=== PATIENT | male | born 1950 | race Caucasian/White ===

== ENCOUNTER 2017-07-15 10:49 | Emergency (ER) | payer MEDICARE, SELFPAY ==
[2017-07-15 10:50] VITALS: BP 124/70; PULSE 101; RESP 20; TEMP 37.2; O2SAT 94; BMI 25.0
--- NOTE | 2017-07-15 11:22 | EKG12_ITS ---
Test Reason : COUGH Blood Pressure : / mmHG Vent. Rate : 084 BPM Atrial Rate : 084 BPM P-R Int : 104 ms QRS Dur : 090 ms QT Int : 382 ms P-R-T Axes : 083 -37 -44 degrees QTc Int : 451 ms Sinus rhythm with short FL Left axis deviation Septal infarct , age undetermined Abnormal ECG Confirmed by ROB VENEGAS, KHANG ([id number]), desk editor ASIF PITT ([id number]) on 07/17/2017 3:03:34 PM Referred By: MENDEZ Confirmed By:KHANG RIVAS MD
[2017-07-15 11:33] VITALS: PULSE 92; RESP 18
[2017-07-15] MEDS: Ipratropium/Albuterol Sulfate 3 ML AMPUL.NEB INHALATION (11:33)
[2017-07-15 11:43] LABS: Absolute Lymphocyte Count 1.43 X10^3/ul (0.83-4.51); Absolute Neutrophil Count 4.7 X10^3/uL (2.0-7.7); Basophil# 0.04 X10^3/uL; Basophil% 0.5 % (0-1); Eosinophil# 0.38 X10^3/uL; Eosinophils% 5.2 % (0-5); Hematocrit 43.1 % (40-54); Hemoglobin 14.1 g/dl (13.0-16.5); Lymphocyte # 1.43 X10^3/ul (4.0); Lymphocyte % 19.6 % (19-41); Mean Corp Hgb Conc 32.7 g/gl (32-36); Mean Corpuscular Hgb 30.1 pg (27.0-32.0); Mean Corpuscular Volume 92.1 fL (80-94); Mean Platelet Vol. 10.1 fl (6.2-12.0); Monocyte# 0.73 X10^3/uL; Neutrophil # 4.69 X10^3/uL (2.7-7.7); Neutrophil % 64.6 % (47-70); Platelet Count 236 K/mm3 (150-450); RBC Distribution Width SD 46.8 fl (35.1-43.9); Red Blood Count 4.68 M/mm3 (4.6-6.2); White Blood Count 7.3 K/mm3 (4.4-11.0)
[2017-07-15 11:44] LABS: POSITIVE COUNT NO; POSITIVE DIFFERENTIAL NO; POSITIVE MORPHOLOGY NO
--- NOTE | 2017-07-15 11:53 | RAD_ITS ---
STUDY: X-RAY CHEST REASON FOR EXAM: Male, 66 years old. Shortness of breath and dyspnea. TECHNIQUE: Single AP portable view of the chest. COMPARISON: June 16, 2016. FINDINGS: Cardiac monitoring leads are present. Patient has had a sternotomy. The lungs are hyperexpanded. There is eventration of the hemidiaphragms. There is mild prominence of bronchovascular markings. There is no demonstrated pleural abnormality. Normal size heart. There are calcified mediastinal lymph nodes. There is prominence of the pulmonary hilar arteries without peripheral pulmonary vascular congestion. There is atherosclerotic calcification of the aortic arch with tortuosity. There is demineralization of the osseous structures. There are degenerative changes of the right acromioclavicular joint. There is no demonstrated abnormality of the visualized soft tissue structures of the upper abdomen. RAD/Chest 1 View (Portable) IMPRESSION: No radiographic evidence of acute cardiopulmonary disease. Electronically Signed: Jyothi Sebastian MD at 12:21 EST , Service support ,
[2017-07-15 12:01] LABS: Anion Gap 8 (5-15); BUN 15 mg/dL (7-18); BUN/Creat Ratio 13.9 RATIO (10-20); Calcium,Total 8.8 mg/dL (8.5-10.1); Chloride 105 mmol/L (98-107); Creatinine, Serum 1.08 mg/dL (0.70-1.30); EST Glomerular Filtration Rate 72 mL/min (>60); Est Glom Filt Rate - Afr Amer 87 mL/min (>60); Estimated Creatinine Clearance 50.56 ml/min; Glucose 87 mg/dL (74-106); Potassium 4.6 mmol/L (3.5-5.1); Sodium Level 139 mmol/L (136-145)
--- NOTE | 2017-07-15 12:03 | ED.DCSUM_ITS ---
- ER Visit Summary Date of Service: 07/15/17 Chief Complaint: [] Cough for 2 weeks COPD History of Present Illness: The patient is a 66 M [] COPD long-standing on home O2 2 L, CABG, he reports his been coughing for 2 weeks dry nonproductive he came in to be evaluated for that otherwise his health has been stable he has had no chest pain no fevers he is eating drinking well he is not gaining weight no leg edema no history of DVT or PE he has all of his meds including his inhalers at home he indicates when he coughs for this long he is usually treated with steroids and azithromycin he sees Dr. burks of pulmonary Physical Examination: [] No distress he is playing poker on his iPhone his nose is clear he has diffuse rhonchi that he states is normal for him his heart tones are normal the abdomen soft nontender upper lower extremity unremarkable neurologically he is awake alert he has a dry cough is nonproductive Test Results: [] Emergency Department Course and Treatment: [] Labs are obtained EKG shows a sinus rhythm nothing acute the studies are generally unremarkable see those reports indicates usually treated with steroids antibiotics we will start Kenalog 40 mg IM azithromycin Z-Isacc he will follow-up with his doctors take all his meds and return for change in symptoms he is feeling better wants to go home and he will follow-up Treatment Plan: [] Disposition: [] Home stable Impression: [] Acute exacerbation of COPD This note was generated with [employer] dictation software. It may contain incorrect words, spelling, and punctuation that were not noted in review of the chart prior to signing ED Disposition - Plan for ED Patient: Chief Complaint: Cough Referrals: Neto Ku MD [Primary Care Provider] -
--- NOTE | 2017-07-15 12:04 | DCINST.ED_ITS ---
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
--- NOTE | 2017-07-15 12:05 | DCINST.ED_ITS ---
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
[2017-07-15 12:10] LABS: BNP,B-Type NATRIURETIC PEPTIDE 39.8 pg/mL (0-100)
[2017-07-15] MEDS: Triamcinolone Acetonide 40 MG/ML Vial IM (13:04)
[2017-07-15 14:08] VITALS: BP 137/76; PULSE 85; RESP 21; O2SAT 97
== END 2017-07-15 15:02 | disposition home or self-care (01) ==
PROVIDERS: Emergency Provider Emergency Medicine; Family Provider Family Medicine; PCP Family Medicine
DX: J44.1 Chronic obstructive pulmonary disease with (acute) exacerbation (principal); Z99.81 Dependence on supplemental oxygen; Z95.1 Presence of aortocoronary bypass graft; Z79.82 Long term (current) use of aspirin; Z79.899 Other long term (current) drug therapy; R06.2 Wheezing
CPT/HCPCS: 71045; 80048; 83880; 84484; 85025; 93005; 94640; 96372; 99284; A4216

== ENCOUNTER 2017-12-16 18:10 | Observation (INO) | payer MEDICARE, SELFPAY ==
[2017-12-16] VITALS (8 sets, daily range): BP systolic 118–155; BP diastolic 56–105; PULSE 86–115; RESP 16–22; TEMP 36.5–37.2; O2SAT 86–99; BMI 27.1; BMI 26.0
--- NOTE | 2017-12-16 18:33 | RAD_ITS ---
STUDY: X-RAY CHEST REASON FOR EXAM: Male, 67 years old. Choking on food. TECHNIQUE: Single AP portable view of the chest. COMPARISON: 07/15/2017. FINDINGS: The lungs are hyperexpanded. There are coarsened interstitial markings suggestive of mild chronic fibrosis. No gross focal infiltrates. No gross effusions. Sternal cerclage wires and vascular clips are present from a prior sternotomy and coronary artery bypass graft procedure (CABG). Normal mediastinum and katelyn. Normal visualized pulmonary arteries. Normal visualized aortic arch and descending thoracic aorta. Normal visualized thoracic spine. Normal visualized ribs, clavicles, and shoulders. There is no demonstrated abnormality of the visualized soft tissue structures of the upper abdomen. RAD/Chest 1 View (Portable) IMPRESSION: There are findings consistent with COPD. There is no evidence of acute chest disease. Electronically Signed: Tod Barnhart MD at 19:31 EDT , Service support ,
--- NOTE | 2017-12-16 18:40 | ED.DCSUM_ITS ---
- ER Visit Summary Date of Service: 12/16/17 Chief Complaint: Choked on Taco History of Present Illness: The patient is a 67 M presenting after choking on a taco while eating upstairs visiting his in the hospital. He has had coughing and sensation of foreign body in throat since that time. He is able to swallow liquids. His family states that he has frequent trouble with choking when eating. He denies chest pain or shortness of breath. Physical Examination: Vitals are stable. Patient is afebrile. Alert no acute distress. Pulse ox initially 86% on room air. HEENT exam is unremarkable. Neck is supple. Lungs are mild expiratory wheezing bilaterally. Heart is regular rate and rhythm. Abdomen is soft nontender nondistended. Extremities are unremarkable. Skin is warm and dry. Remainder of exam is unremarkable. Emergency Department Course and Treatment: He was given Glucagon IM. He continues to have coughing. He is able to swallow liquids without difficulty. He states he feels a scratch in the back of his throat but otherwise is able to swallow. CBC, chemistries unremarkable. He was given Unasyn IV for aspiration. I feel he will likely need a swallow evaluation and treatment for aspiration. Discussed with the hospitalist. Discussed with Dr Mae, recommends CT chest. CT chest shows moderate to severe COPD. No definite acute abnormalities. Disposition: Admission Impression: Aspiration pneumonitis This note was generated with [employer] dictation software. It may contain incorrect words, spelling, and punctuation that were not noted in review of the chart prior to signing ED Disposition - Plan for ED Patient: Chief Complaint: Foreign Body
[2017-12-16] MEDS: Glucagon 1 MG/ML Syringe IM (18:46)
[2017-12-16 19:01] LABS: Anion Gap 9 (5-15); BUN 13 mg/dL (7-18); BUN/Creat Ratio 10.7 RATIO (10-20); Calcium,Total 9.7 mg/dL (8.5-10.1); Chloride 104 mmol/L (98-107); Creatinine, Serum 1.22 mg/dL (0.70-1.30); EST Glomerular Filtration Rate 63 mL/min (>60); Est Glom Filt Rate - Afr Amer 76 mL/min (>60); Estimated Creatinine Clearance 44.13 ml/min; Glucose 93 mg/dL (74-106); Potassium 4.5 mmol/L (3.5-5.1); Sodium Level 140 mmol/L (136-145)
[2017-12-16 19:06] LABS: Absolute Lymphocyte Count 2.88 X10^3/ul (0.83-4.51); Absolute Neutrophil Count 4.5 X10^3/uL (2.0-7.7); Basophil# 0.11 X10^3/uL; Basophil% 1.2 % (0-1); Eosinophil# 0.79 X10^3/uL; Eosinophils% 8.4 % (0-5); Hematocrit 46.3 % (40-54); Hemoglobin 15.1 g/dl (13.0-16.5); Lymphocyte # 2.88 X10^3/ul (4.0); Lymphocyte % 30.6 % (19-41); Mean Corp Hgb Conc 32.6 g/gl (32-36); Mean Corpuscular Hgb 30.6 pg (27.0-32.0); Mean Corpuscular Volume 93.9 fL (80-94); Mean Platelet Vol. 10.7 fl (6.2-12.0); Monocyte# 1.13 X10^3/uL; Neutrophil # 4.48 X10^3/uL (2.7-7.7); Neutrophil % 47.6 % (47-70); Platelet Count 287 K/mm3 (150-450); RBC Distribution Width CV 13.7 % (11.6-14.6); RBC Distribution Width SD 45.8 fl (35.1-43.9); Red Blood Count 4.93 M/mm3 (4.6-6.2); White Blood Count 9.4 K/mm3 (4.4-11.0)
[2017-12-16 19:07] LABS: POSITIVE COUNT NO; POSITIVE DIFFERENTIAL NO; POSITIVE MORPHOLOGY NO
--- NOTE | 2017-12-16 20:12 | HP.PCM_ITS ---
Problem List (1) Aspiration into airway Status: Acute (2) DDD (degenerative disc disease) Status: Chronic (3) Hx of CABG Status: Chronic (4) Benign prostatic hypertrophy Status: Chronic (5) CAD (coronary artery disease) Status: Chronic (6) COPD (chronic obstructive pulmonary disease) Status: Chronic History of Present Illness Date of Admission: 12/16/17 Chief Complaint: Choking spell on taco crust The patient is a 67 year old M with a significant history of COPD, home oxygen use at 2 L at night; paroxysmal A. fib;tobacco abuse; heart failure; skin cancer status post surgery; CAD status post double CABG who presented because of a choking spell about 3 hours prior to his admission. The patient feels like there is something scratching at the back of his throat. He has been coughing profusely. Patient visited his sister who is inpatient at our TCU. While at our hospital the patient began to choke on taco crust that he was eating. He was subsequently brought to the emergency department. At emergency department he was given a dose of Unasyn. A CT scan was done and it showed narrowing of the upper trachea; unremarkable otherwise. Also patient reports that 3 times in the last 3 weeks he has been choking on food. He also reports a chronic cough although he admits that his baseline cough has worsened with his food encounter aforementioned. Past Medical History Past Medical History (Chronic Problems): Chronic Problems Benign prostatic hypertrophy (Chronic) Hypertension (Chronic) Chronic respiratory failure (Chronic) COPD (chronic obstructive pulmonary disease) (Chronic) Paroxysmal atrial fibrillation (Chronic) DDD (degenerative disc disease) (Chronic) CAD (coronary artery disease) (Chronic) Hx of CABG (Chronic) Myoclonic jerking (Chronic) Allergies No Known Allergies Allergy (Verified 12/16/17 18:11) Home Medications: Ambulatory Orders Medication Instructions Recorded Albuterol Aerosols [Ventolin 2.5 mg INHALATION Q4H PRN PRN 07/04/16 Aerosols] Albuterol Inhaler [Ventolin Hfa 2 puff INHALATION Q6H PRN PRN 07/04/16 (SP)] Allopurinol 100 mg PO DAILY 07/04/16 Ascorbic Acid [Vitamin C] 1,000 mg PO DAILY 07/04/16 Aspirin [Aspirin, Baby] 81 mg PO DAILY@0800 07/04/16 Atorvastatin Calcium [Lipitor] 10 mg PO QHS 07/04/16 Budesonide [Pulmicort] 0.25 mg IH BID 07/04/16 Cholecalciferol (Vitamin D3) 2,000 unit PO DAILY 07/04/16 [Vitamin D3] Ciclopirox 6.6 ml TP QHS 07/04/16 Colchicine 0.6 mg PO BID 07/04/16 Hydroxychloroquine [Plaquenil] 400 mg PO DAILYCM 07/04/16 Ipratropium [Atrovent] 0.25 mg INHALATION 4X/DAY 07/04/16 Metoprolol Tartrate 25 mg PO DAILY 07/04/16 Nitroglycerin 0.4 mg SL PRN PRN 07/04/16 Omeprazole [Prilosec] 20 mg PO DAILY 07/04/16 Pregabalin [Lyrica] 150 mg PO BID 07/04/16 Spironolactone [Aldactone] 12.5 mg PO DAILY 07/04/16 Tamsulosin HCl [Flomax] 0.4 mg PO DAILY 07/04/16 traMADol [Ultram (G)] 50 mg PO Q4H PRN PRN 07/04/16 Alendronate Sodium [Fosamax] 70 mg PO QWEEK 07/15/17 Baclofen 10 mg PO BID PRN PRN 07/15/17 Nicotine [Nicotine Patch] 1 each TD DAILY 12/16/17 Surgical History: cataract, - - Bilateral carpal tunnel surgery Psychiatric History: No pertinent psych hx Smoking Status: Current every day smoker - *Family History Maternal History Items: Asthma Paternal History Items: No pertinent history Sibling History Items: No pertinent history Review of Systems Constitutional: Denies: Chills, Fever, Weight Change HEENT: Denies: Head Aches, Sinus Congestion, Sinus Drainage Cardiovascular: Denies: Chest Pain, Palpitations Respiratory: Reports: Cough Gastrointestinal: Denies: Abdominal Pain, Nausea, Vomiting Genitourinary: Denies: Dysuria Musculoskeletal: Denies: Joint Pain, Joint Tenderness Skin: Denies: Rash, Wounds Neurological: Denies: Numbness, Tingling, Focal weakness Psychiatric: Denies: Homicidal Ideations, Suicidal Ideations Hematologic/ Lymphatic: Denies: Easy Bruising, Easy Bleeding VTE Information - Inpt Only VTE Present on Admission: No VTE Mechan Device Prophylaxis: None VTE Pharm Prophylaxis ordered?: Yes Patient Problems: Active and Suspected Problems Aspiration into airway (Acute) - Physical Exam General: Alert, Oriented x3, Cooperative HEENT: Atraumatic, PERRLA, EOMI, Normocephalic Neck: Supple, No JVD, Negative Carotid Bruits Lungs: Wheezes - Mild, - - Patient was coughing at the time of my examination. Cardiovascular: Regular rate, No murmurs Abdomen: Bowel Sounds Present, Soft, Non Tender Extremities: No edema, Capillary Refill Less than 3 Seconds Skin: No rashes, No breakdown Musculoskeletal: No Tenderness to Palpation of Joints or Extremities Neurological: Cranial nerves II-XII grossly intact Psych/Mental Status: Normal Affect, Appropriate Vital Signs Temp Pulse Resp BP Pulse Ox 97.7 F L 115 H 18 154/105 H 86 12/16/17 18:11 12/16/17 18:11 12/16/17 18:11 12/16/17 18:11 12/16/17 18:11 Oxygen Flow Rate (L/min) 2 Oxygen Delivery Method Nasal Cannula Weight: 67.4 kg Body Mass Index (BMI) 27.1 Laboratory Tests Past 24 Hrs 12/16/17 12/16/17 18:10 18:10 WBC 9.4 RBC 4.93 Hgb 15.1 Hct 46.3 MCV 93.9 MCH 30.6 MCHC 32.6 RDW 13.7 RDW Differential 45.8 H Plt Count 287 MPV 10.7 Immature Gran % (Auto) 0.200 Neut % (Auto) 47.6 Lymph % (Auto) 30.6 Divide % (Auto) 12.0 H Eos % (Auto) 8.4 H Baso % (Auto) 1.2 H Absolute Neuts (auto) 4.5 Absolute Lymphs (auto) 2.88 Total Counted Not Reportable Sodium 140 Potassium 4.5 Chloride 104 Carbon Dioxide 27.0 Anion Gap 9 BUN 13 Creatinine 1.22 Estim Creat Clear Calc 44.13 Est GFR (MDRD) Af Amer 76 Est GFR (MDRD) Non-Af 63 BUN/Creatinine Ratio 10.7 Glucose 93 Calcium 9.7 Assessment/Plan All Active Problems Aspiration into airway (Acute) Sepsis (Ruled-out) The patient is a 67 year old M with a significant history of COPD, home oxygen use at 2 L at night; paroxysmal A. fib;tobacco abuse; heart failure; skin cancer status post surgery; CAD status post double CABG who presented because of an acute choking spell and a recent history of choking on food. Aspiration CT chest unremarkable. Xray Chest unremarkable Patient to be clinically monitored. The plan was that if patient continued to cough he will see pulmonary for possible bronchoscopy for removal of foreign material. However while on the inpatient burt, patient reported alleged that he (patient) might have coughed up the food into a tissue. We will hold off pulmonary consult for now. Will hold off antibiotics for aspiration pneumonia; and prednisone for pneumonitis as there are no such evidence at this time. We will hold off all p.o. medications at this time. Because patient reports history of recent choking spells will consult speech for swallow eval. Depending upon speech recommendation patient may be a candidate for modified barium swallow evaluation. The patient takes alendronate at home. This may be contributing to esophagitis ; and this may deserve further exploration. COPD Scheduled DuoNeb and as needed albuterol Albuterol prn HTN Home anti-hypertensive medications held because of dysphagia. As needed labetalol. Degenerative disc disease and generalized osteoarthritis Tramadol p.o. held Morphine as needed. Tobacco abuse Nicotine patch continued DVT prophylaxis subcutaneous heparin. This note was generated with [employer] dictation software. It may contain incorrect words, spelling, and punctuation that were not noted before signingthe note. Code Visit OBSV E&M: 48419 Initial observation care L3
--- NOTE | 2017-12-16 20:32 | CT_ITS ---
STUDY: CT CHEST WITH CONTRAST REASON FOR EXAM: Male, 67 years old. Choked on food. Cough. RADIATION DOSAGE (If Supplied By Facility): CTDIvol = ( 13.08 ) mGy, DLP = ( 579.65 ) mGycm TECHNIQUE: Transaxial imaging was performed following intravenous administration of 100 ml of Isovue 300 contrast material. Individualized dose optimization techniques were used for this CT. COMPARISON: None. FINDINGS: There are emphysematous changes of the lungs with emphysematous blebs. There is hyperexpansion of the lungs. No infiltrates. No effusions. There is no demonstrated pleural abnormality. Sternal cerclage wires and vascular clips are present from a prior sternotomy and coronary artery bypass graft procedure (CABG). There is narrowing of the upper trachea which can be seen with COPD. Normal mediastinum. Normal hilar regions. Normal enhanced pulmonary arteries. There is atherosclerotic calcification of the aortic arch with tortuosity and elongation of the aortic arch and descending thoracic aorta. No gross abnormality of the esophagus. There are multi-level degenerative changes of the thoracic spine. There is no demonstrated abnormality of the visualized upper abdomen. CT/Chest WITH Contrast IMPRESSION: Moderate to severe COPD. No definite acute abnormalities. Electronically Signed: Tod Barnhart MD at 21:08 EDT , Service support ,
--- NOTE | 2017-12-16 21:25 | ED.RN ---
called patients family in TCU per patients request and updated them that pt is being admitted to PCU for observation.
--- NOTE | 2017-12-16 21:31 | NURSING ---
called ER charge lpn at [id number] stating it was ok to receive pt
[2017-12-16] MEDS: Ipratropium/Albuterol Sulfate 3 ML AMPUL.NEB INHALATION (22:39)
[2017-12-16] MEDS: Budesonide Respules 0.5 MG/2 ML AMPUL.NEB. 0.25 MG INHALATION (22:40)
[2017-12-16] MEDS: Heparin Injection (Vial) 5,000 UNIT/ML VIAL 5000 UNIT SC (23:09)
[2017-12-17] VITALS (8 sets, daily range): BP systolic 101–109; BP diastolic 42–49; PULSE 87–99; RESP 14–16; TEMP 36.7–36.9; O2SAT 95–97
[2017-12-17 05:44] LABS: Anion Gap 15 (5-15); BUN 18 mg/dL (7-18); BUN/Creat Ratio 18.3 RATIO (10-20); Calcium,Total 9.1 mg/dL (8.5-10.1); Chloride 104 mmol/L (98-107); Creatinine, Serum 0.99 mg/dL (0.70-1.30); EST Glomerular Filtration Rate 80 mL/min (>60); Est Glom Filt Rate - Afr Amer 97 mL/min (>60); Estimated Creatinine Clearance 54.39 ml/min; Glucose 47 mg/dL (74-106); Potassium 4.6 mmol/L (3.5-5.1); Sodium Level 142 mmol/L (136-145)
[2017-12-17] MEDS: Heparin Injection (Vial) 5,000 UNIT/ML VIAL 5000 UNIT SC (06:57)
[2017-12-17] MEDS: Ipratropium/Albuterol Sulfate 3 ML AMPUL.NEB INHALATION ×2 (07:15→11:02)
[2017-12-17] MEDS: Budesonide Respules 0.5 MG/2 ML AMPUL.NEB. 0.25 MG INHALATION (07:15)
--- NOTE | 2017-12-17 10:41 | DCINST_ITS ---
- Discharge Diagnoses Current Active Problems: Current Active and Chronic Problems Aspiration into airway (Acute) You will use the following diet at home:: Other - Dietitian recommends: mechanical soft textures, thin liquids, and in order to help prevent further choking: small bites, small sips, making sure to be at a 90? elevation whenever eating, and to alternate bites of solids and sips of liquids Your food should be the consistency of: Mechanical soft (ground) Your liquids should be the consistency of: Regular/Thin Discharge Activity: Return to Normal Activity Allergies/Adverse Reactions: Allergies No Known Allergies Allergy (Verified 12/16/17 18:11) Medications to take at Discharge Albuterol Aerosols [Ventolin Aerosols] 2.5 mg INHALATION Q4H PRN PRN 07/04/16 Albuterol Inhaler [Ventolin Hfa] 2 puff INHALATION Q6H PRN PRN 07/04/16 Allopurinol 100 mg PO DAILY 07/04/16 Ascorbic Acid [Vitamin C] 1,000 mg PO DAILY 07/04/16 Aspirin [Aspirin, Baby] 81 mg PO DAILY@0800 07/04/16 Atorvastatin Calcium [Lipitor] 10 mg PO QHS 07/04/16 Budesonide [Pulmicort] 0.25 mg IH BID 07/04/16 Cholecalciferol (Vitamin D3) [Vitamin D3] 2,000 unit PO DAILY 07/04/16 Ciclopirox 6.6 ml TP QHS 07/04/16 Colchicine 0.6 mg PO BID 07/04/16 Hydroxychloroquine [Plaquenil] 400 mg PO DAILYCM 07/04/16 Ipratropium [Atrovent Aerosols] 0.25 mg INHALATION 4X/DAY 07/04/16 Metoprolol Tartrate 25 mg PO DAILY 07/04/16 Nitroglycerin 0.4 mg SL PRN PRN 07/04/16 Omeprazole [Prilosec] 20 mg PO DAILY 07/04/16 Pregabalin [Lyrica] 150 mg PO BID 07/04/16 Spironolactone [Aldactone] 12.5 mg PO DAILY 07/04/16 Tamsulosin HCl [Flomax] 0.4 mg PO DAILY 07/04/16 traMADol [Ultram] 50 mg PO Q4H PRN PRN 07/04/16 Alendronate Sodium [Fosamax] 70 mg PO QWEEK 07/15/17 Baclofen 10 mg PO BID PRN PRN 07/15/17 Nicotine [Nicotine Patch] 1 each TD DAILY 12/16/17 Primary Care Physician: Neto Ku MD [Primary Care Provider] - Please follow up with your Primary Care Physician in: 1-2 weeks Test Results: Test results from this visit will be discussed in further detail at your follow- up appointment, if applicable. Proposed Discharge Date: 12/17/17
--- NOTE | 2017-12-17 14:04 | PCM.DC.SUM ---
<Jose Raul Grace - Last Filed: 12/17/17 14:10> Discharge Date and Diagnosis Date of Admission: 12/16/17 Date of Discharge: 12/17/17 - Primary Discharge Diagnosis Aspiration of food, dysphagia COPD without acute exacerbation Hx CABG PAfib BPH DDD - Secondary Discharge Diagnosis Chronic Problems Benign prostatic hypertrophy (Chronic) Hypertension (Chronic) Chronic respiratory failure (Chronic) COPD (chronic obstructive pulmonary disease) (Chronic) Paroxysmal atrial fibrillation (Chronic) DDD (degenerative disc disease) (Chronic) CAD (coronary artery disease) (Chronic) Hx of CABG (Chronic) Myoclonic jerking (Chronic) Hospital Course and Treatment Imaging Results: RAD/Chest 1 View (Portable) IMPRESSION: There are findings consistent with COPD. There is no evidence of acute chest disease. CT/Chest WITH Contrast IMPRESSION: Moderate to severe COPD. No definite acute abnormalities. Operations: None Procedures: None Summary of Care Provided: The patient is a 67 year old M with a hx of COPD on 2 lpm o2 qhs, CAD prior CABG, PAFib, DDD who presented to the ER with severe cough. This began about 3 hours prior to presentation after he choked on a taco shell. In the ER he had a negative CXR and CT scan. He was given a dose of unasyn. He also reported this happening 3 times in the last 3 weeks. He did not require increased O2 supplementation. He was admitted for monitoring on the PCU and given aerosols. He was somewhat wheezy. He was able to cough out the piece of taco shell. The following morning he had no complaints and desired to go home. He met with the speech therapist who recommended a soft mechanical diet, thin liquids, and to eat slowly while sitting up at 90 degrees with alterniting bites and sips. He was given these instrucions for DC. I also advised him to use his albuterol inhaler scheduled [id number] for the first day home. He was discharged home in stable condition and advised to follow up with his PCP in 1-2 weeks. This patient was seen by Jose Raul Grace PA-C under the supervision of Dr. Tripp. [] Discharge Diet: Low fat/ Low Cholesterol, 2000 mg Sodium Diet, - - Mechanical soft textures, thin liquids, small bites small sips, slow rate, alternate bites of solids and sips of liquids, head of bed at 90?. Discharge Activity: Return to Normal Activity Home Medications: Medications to take at Discharge Albuterol Aerosols [Ventolin Aerosols] 2.5 mg INHALATION Q4H PRN PRN 07/04/16 Albuterol Inhaler [Ventolin Hfa] 2 puff INHALATION Q6H PRN PRN 07/04/16 Allopurinol 100 mg PO DAILY 07/04/16 Ascorbic Acid [Vitamin C] 1,000 mg PO DAILY 07/04/16 Aspirin [Aspirin, Baby] 81 mg PO DAILY@0800 07/04/16 Atorvastatin Calcium [Lipitor] 10 mg PO QHS 07/04/16 Budesonide [Pulmicort] 0.25 mg IH BID 07/04/16 Cholecalciferol (Vitamin D3) [Vitamin D3] 2,000 unit PO DAILY 07/04/16 Ciclopirox 6.6 ml TP QHS 07/04/16 Colchicine 0.6 mg PO BID 07/04/16 Hydroxychloroquine [Plaquenil] 400 mg PO DAILYCM 07/04/16 Ipratropium [Atrovent Aerosols] 0.25 mg INHALATION 4X/DAY 07/04/16 Metoprolol Tartrate 25 mg PO DAILY 07/04/16 Nitroglycerin 0.4 mg SL PRN PRN 07/04/16 Omeprazole [Prilosec] 20 mg PO DAILY 07/04/16 Pregabalin [Lyrica] 150 mg PO BID 07/04/16 Spironolactone [Aldactone] 12.5 mg PO DAILY 07/04/16 Tamsulosin HCl [Flomax] 0.4 mg PO DAILY 07/04/16 traMADol [Ultram] 50 mg PO Q4H PRN PRN 07/04/16 Alendronate Sodium [Fosamax] 70 mg PO QWEEK 07/15/17 Baclofen 10 mg PO BID PRN PRN 07/15/17 Nicotine [Nicotine Patch] 1 each TD DAILY 12/16/17 Primary Care Physician: Neto Ku MD [Primary Care Provider] - Please follow up with your Primary Care Physician in: 1-2 weeks Disposition: Home Minutes spent on discharge:: 35 Patient Condition:: Stable Medical Necessity - Tobacco Use Smoking Status: Current every day smoker Meaningful Use Info Meaningful Use Diagnoses (Choose all that apply): None applicable <Marjorie Tripp E - Last Filed: 12/17/17 15:06> Discharge Date and Diagnosis - Secondary Discharge Diagnosis Chronic Problems Benign prostatic hypertrophy (Chronic) Hypertension (Chronic) Chronic respiratory failure (Chronic) COPD (chronic obstructive pulmonary disease) (Chronic) Paroxysmal atrial fibrillation (Chronic) DDD (degenerative disc disease) (Chronic) CAD (coronary artery disease) (Chronic) Hx of CABG (Chronic) Myoclonic jerking (Chronic) Hospital Course and Treatment Summary of Care Provided: Hospitalist note: Discharge summary above reviewed and I agree with above discharge and treatment plan. Patient was admitted because of persistent cough after he choked on taco shell. He was admitted with concern of aspiration and dysphagia. Extensive workup was done including chest x-ray and CT scan chest that was unremarkable without evidence of aspiration pneumonia or foreign body aspiration. His routine blood work was unremarkable. Patient was seen and evaluated by speech therapy and recommended soft mechanical diet, thin liquids and to eat slowly while sitting up. Instructions were relayed to the patient. Patient discharged home in a stable medical condition, discharged on his chronic home medication without any changes, started on albuterol as needed, recommended follow-up with PCP in 1-2 weeks. - Physical Exam General: Alert, Oriented x3, Cooperative, No apparent distress. HEENT: Atraumatic, PERRLA, EOMI. Neck: Supple, No JVD, Negative Carotid Bruits, Trachea Midline, Thyroid Normal. Lungs: Diminished breath sounds bilateral, no rhonchi, No wheeze, No rales. Cardiovascular: Regular rate, Regular Rhythm, Normal S1, Normal S2, PMI Normal. Abdomen: Bowel Sounds Present, Soft, Non Tender, Non-Distended, No Hepato-splenomegaly. Extremities: No clubbing, No cyanosis, No edema Skin: No rashes, No breakdown Neurological: Neuro grossly intact Vital Signs are stable. This note was generated with [employer] dictation software. It may contain incorrect words, spelling, and punctuation that were not noted in checking the note before signing. Minutes spent on discharge:: 25 Patient Condition:: Stable Meaningful Use Info Meaningful Use Diagnoses (Choose all that apply): None applicable Code Visit OBSV E&M: 23632 Observation care discharge
--- NOTE | 2017-12-17 14:09 | DS.PCM_ITS ---
<Jose Raul Grace - Last Filed: 12/17/17 14:10> Discharge Date and Diagnosis Date of Admission: 12/16/17 Date of Discharge: 12/17/17 - Primary Discharge Diagnosis Aspiration of food, dysphagia COPD without acute exacerbation Hx CABG PAfib BPH DDD - Secondary Discharge Diagnosis Chronic Problems Benign prostatic hypertrophy (Chronic) Hypertension (Chronic) Chronic respiratory failure (Chronic) COPD (chronic obstructive pulmonary disease) (Chronic) Paroxysmal atrial fibrillation (Chronic) DDD (degenerative disc disease) (Chronic) CAD (coronary artery disease) (Chronic) Hx of CABG (Chronic) Myoclonic jerking (Chronic) Hospital Course and Treatment Imaging Results: RAD/Chest 1 View (Portable) IMPRESSION: There are findings consistent with COPD. There is no evidence of acute chest disease. CT/Chest WITH Contrast IMPRESSION: Moderate to severe COPD. No definite acute abnormalities. Operations: None Procedures: None Summary of Care Provided: The patient is a 67 year old M with a hx of COPD on 2 lpm o2 qhs, CAD prior CABG , PAFib, DDD who presented to the ER with severe cough. This began about 3 hours prior to presentation after he choked on a taco shell. In the ER he had a negative CXR and CT scan. He was given a dose of unasyn. He also reported this happening 3 times in the last 3 weeks. He did not require increased O2 supplementation. He was admitted for monitoring on the PCU and given aerosols. He was somewhat wheezy. He was able to cough out the piece of taco shell. The following morning he had no complaints and desired to go home. He met with the speech therapist who recommended a soft mechanical diet, thin liquids, and to eat slowly while sitting up at 90 degrees with alterniting bites and sips. He was given these instrucions for DC. I also advised him to use his albuterol inhaler scheduled [id number] for the first day home. He was discharged home in stable condition and advised to follow up with his PCP in 1-2 weeks. This patient was seen by Jose Raul Grace PA-C under the supervision of Dr. Tripp. [] Discharge Diet: Low fat/ Low Cholesterol, 2000 mg Sodium Diet, - - Mechanical soft textures, thin liquids, small bites small sips, slow rate, alternate bites of solids and sips of liquids, head of bed at 90?. Discharge Activity: Return to Normal Activity Home Medications: Medications to take at Discharge Albuterol Aerosols [Ventolin Aerosols] 2.5 mg INHALATION Q4H PRN PRN 07/04/16 Albuterol Inhaler [Ventolin Hfa] 2 puff INHALATION Q6H PRN PRN 07/04/16 Allopurinol 100 mg PO DAILY 07/04/16 Ascorbic Acid [Vitamin C] 1,000 mg PO DAILY 07/04/16 Aspirin [Aspirin, Baby] 81 mg PO DAILY@0800 07/04/16 Atorvastatin Calcium [Lipitor] 10 mg PO QHS 07/04/16 Budesonide [Pulmicort] 0.25 mg IH BID 07/04/16 Cholecalciferol (Vitamin D3) [Vitamin D3] 2,000 unit PO DAILY 07/04/16 Ciclopirox 6.6 ml TP QHS 07/04/16 Colchicine 0.6 mg PO BID 07/04/16 Hydroxychloroquine [Plaquenil] 400 mg PO DAILYCM 07/04/16 Ipratropium [Atrovent Aerosols] 0.25 mg INHALATION 4X/DAY 07/04/16 Metoprolol Tartrate 25 mg PO DAILY 07/04/16 Nitroglycerin 0.4 mg SL PRN PRN 07/04/16 Omeprazole [Prilosec] 20 mg PO DAILY 07/04/16 Pregabalin [Lyrica] 150 mg PO BID 07/04/16 Spironolactone [Aldactone] 12.5 mg PO DAILY 07/04/16 Tamsulosin HCl [Flomax] 0.4 mg PO DAILY 07/04/16 traMADol [Ultram] 50 mg PO Q4H PRN PRN 07/04/16 Alendronate Sodium [Fosamax] 70 mg PO QWEEK 07/15/17 Baclofen 10 mg PO BID PRN PRN 07/15/17 Nicotine [Nicotine Patch] 1 each TD DAILY 12/16/17 Primary Care Physician: Neto Ku MD [Primary Care Provider] - Please follow up with your Primary Care Physician in: 1-2 weeks Disposition: Home Minutes spent on discharge:: 35 Patient Condition:: Stable Medical Necessity - Tobacco Use Smoking Status: Current every day smoker Meaningful Use Info Meaningful Use Diagnoses (Choose all that apply): None applicable <Marjorie Tripp E - Last Filed: 12/17/17 15:06> Discharge Date and Diagnosis - Secondary Discharge Diagnosis Chronic Problems Benign prostatic hypertrophy (Chronic) Hypertension (Chronic) Chronic respiratory failure (Chronic) COPD (chronic obstructive pulmonary disease) (Chronic) Paroxysmal atrial fibrillation (Chronic) DDD (degenerative disc disease) (Chronic) CAD (coronary artery disease) (Chronic) Hx of CABG (Chronic) Myoclonic jerking (Chronic) Hospital Course and Treatment Summary of Care Provided: Hospitalist note: Discharge summary above reviewed and I agree with above discharge and treatment plan. Patient was admitted because of persistent cough after he choked on taco shell. He was admitted with concern of aspiration and dysphagia. Extensive workup was done including chest x-ray and CT scan chest that was unremarkable without evidence of aspiration pneumonia or foreign body aspiration. His routine blood work was unremarkable. Patient was seen and evaluated by speech therapy and recommended soft mechanical diet, thin liquids and to eat slowly while sitting up. Instructions were relayed to the patient. Patient discharged home in a stable medical condition, discharged on his chronic home medication without any changes, started on albuterol as needed, recommended follow-up with PCP in 1-2 weeks. - Physical Exam General: Alert, Oriented x3, Cooperative, No apparent distress. HEENT: Atraumatic, PERRLA, EOMI. Neck: Supple, No JVD, Negative Carotid Bruits, Trachea Midline, Thyroid Normal. Lungs: Diminished breath sounds bilateral, no rhonchi, No wheeze, No rales. Cardiovascular: Regular rate, Regular Rhythm, Normal S1, Normal S2, PMI Normal. Abdomen: Bowel Sounds Present, Soft, Non Tender, Non-Distended, No Hepato- splenomegaly. Extremities: No clubbing, No cyanosis, No edema Skin: No rashes, No breakdown Neurological: Neuro grossly intact Vital Signs are stable. This note was generated with [employer] dictation software. It may contain incorrect words, spelling, and punctuation that were not noted in checking the note before signing. Minutes spent on discharge:: 25 Patient Condition:: Stable Meaningful Use Info Meaningful Use Diagnoses (Choose all that apply): None applicable Code Visit OBSV E&M: 03070 Observation care discharge
== END 2017-12-17 12:00 | disposition home or self-care (01) ==
LOC: ED 19:35 → PCU 21:22
PROVIDERS: Admitting Provider Hospitalist; Emergency Provider Emergency Medicine; Family Provider Family Medicine; PCP Family Medicine; Visit Provider Hospitalist
DX: T17.928A Food in respiratory tract, part unspecified causing other injury, initial encounter (principal); X58.XXXA Exposure to other specified factors, initial encounter; Y93.89 Activity, other specified; Y92.239 Unspecified place in hospital as the place of occurrence of the external cause; Y99.8 Other external cause status; J44.9 Chronic obstructive pulmonary disease, unspecified; Z95.1 Presence of aortocoronary bypass graft; N40.0 Benign prostatic hyperplasia without lower urinary tract symptoms; R13.10 Dysphagia, unspecified; I25.10 Atherosclerotic heart disease of native coronary artery without angina pectoris; I48.0 Paroxysmal atrial fibrillation; I10 Essential (primary) hypertension; J96.10 Chronic respiratory failure, unspecified whether with hypoxia or hypercapnia; G25.3 Myoclonus; M15.9 Polyosteoarthritis, unspecified; F17.210 Nicotine dependence, cigarettes, uncomplicated
CPT/HCPCS: 36415; 71045; 71260; 80048; 85025; 94640; 94667; 94668; 96372; 96374; 99218; 99251; 99282; 99406; Q9967; A4216; G0378; G0463; J0295; J1610

== ENCOUNTER 2018-01-15 11:40 | Day surgery (SDC) | payer MEDICARE, SELFPAY ==
--- NOTE | 2018-01-15 | IMM_PTH ---
PATIENT: KAMILLA DICKSON LOC: EN U#:[id number] AGE/SX: 67/M ROOM: RE01/15/[address]: Dr. Fly Bowie MD : 1950 BED: DIS: 01/15/2018 SPEC #: [id number] RECD: 01/16/18 14:26 STATUS: DESTINEY REQ #: [id number] JOHN: 01/15/18 00:[address]: Fly Bowie DEPT: IMMUNOHISTOCHEMISTRY RECD BY: Le Mayer ENTERED: 01/16/18 14:28 SP TYPE: IMMUNO OTHR DR: Dr. Neto Ku MD Tissues: A - Stomach, NOS Procedures: H Pylori (initial) PHYSICIAN & INSTITUTION [place] [id number] SPECIMEN INFORMATION: Tissue Source: A ? Antral biopsy Clinical Info: Dysphagia Specimen Number: [id number] CPT code: 84098 METHODOLOGY: Deparaffinized sections of prefer/formalin-fixed tissue or PAP/DQ stained slides are incubated with monoclonal/polyclonal antibodies/oligonucleotide probes. Localization is made via biotin free immunoperoxidase method. Appropriate controls are performed and reacted as expected. Results on target cell population are indicated in the following table: RESULTS: ANTIBODY / CLONE RESULT Block A H Pylori (polyclonal) negative These tests were developed and their performance characteristics determined by [facility]. They may not have been cleared or approved by the U.S. Food and Drug Administration. The FDA has determined that such clearance or approval is not necessary. INTERPRETATION: A. Antral biopsy: Negative for Helicobacter pylori organisms. SJ:alka 01/17/18
[2018-01-15 12:02] VITALS: BP 115/71; PULSE 82; RESP 18; TEMP 36.2; O2SAT 91; BMI 25.4
--- NOTE | 2018-01-15 13:00 | EGD_PTH ---
PATIENT: KAMILLA DICKSON LOC: EN U#:[id number] AGE/SX: 67/M ROOM: RE01/15/[address]: Dr. Fly Bowie MD : 1950 BED: DIS: 01/15/2018 SPEC #: [id number] RECD: 01/15/18 14:34 STATUS: DESTINEY ZIA #: [id number] JOHN: 01/15/18 13:[address]: Fly Bowie DEPT: SURGICAL PATHOLOGY RECD BY: Carol Avendano ENTERED: 01/15/18 14:49 SP TYPE: EGD BIOPSY DIMITRI DR: Dr. Neto Ku MD Tissues: A - Gastric mucous membrane B - Esophageal mucous membrane C - Esophageal mucous membrane Procedures: Special Stain Group II Surgery Specimen Level IV Alcian Blue/PAS (control) HEADER OPERATION: EGD ([facility] [place]) PRE-OP DIAGNOSIS: Dysphagia TISSUE SUBMITTED: A ? Antral biopsy for pathology, B ? Distal esophageal biopsy, C ? Mid esophageal biopsy MICROSCOPIC DIAGNOSIS A. Antral biopsy: Mild gastritis. See microscopic description and comment. B. Distal esophageal biopsy: Fragments of gastroesophageal mucosa with chronic inflammation. Intestinal metaplasia (goblet cell metaplasia) is not identified. See comment. C. Mid esophageal biopsy: Fragments of squamous epithelium, no pathologic diagnosis. SJ:rg 01/16/18 COMMENT A. The results of immunohistochemistry for Helicobacter pylori will be reported separately ([id number]). B. Alcian blue/PAS stain with matched control is used in the evaluation of the specimen. MICROSCOPIC DESCRIPTION Slides are reviewed. A. The specimen shows fragments of gastric mucosa with chronic inflammatory cell infiltrates in the lamina propria consisting of lymphocytes and plasma cells, consistent with mild chronic gastritis. GROSS DESCRIPTION A - Received in fixative is one container labeled with the patient's name and designated antral biopsy. The specimen consists of one irregular fragment of light hughes soft tissue that measures 0.3 x 0.3 x 0.1 cm. The specimen is totally submitted in one cassette. B - Received in fixative is one container labeled with the patient's name and designated distal esophageal biopsy. The specimen consists of two irregular fragments of light hughes soft tissue that in aggregate measure 0.5 x 0.3 x 0.1 cm. The specimen is totally submitted in one cassette. C - Received in fixative is one container labeled with the patient's name and designated mid esophageal biopsy. The specimen consists of one irregular fragment of light hughes soft tissue that measures 0.5 x 0.2 x 0.1 cm. The specimen is totally submitted in one cassette. / SJ:rg 01/15/18 TC:3 CPT: 98335 x3, 02250
--- NOTE | 2018-01-15 14:13 | OP.PCM_ITS ---
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 Sign in was performed verifying patient, site, planned procedure, critical nursing information, the patient was monitored with cardiac, pulse oximetric, and blood pressure monitoring devices. Monitored anesthetic care was provided for sedation. Following IV sedation and after the oropharynx was sprayed with Cetacaine spray , a video gastroscope was inserted in the oropharynx and advanced down the esophagus without difficulty. The scope was advanced through the stomach, through the pylorus through the duodenum to the proximal jejunum. there was a small AVM in the proximal jejunum. Otherwise, the jejunum and duodenum were unremarkable. The patient had mild distal esophagitis. Biopsies were obtained for H. pylori pathology. The scope was retroflexed, the fundus appeared unremarkable. The patient had mild distal esophagitis. Biopsies obtained at this location. Since the patient had a degree of dysphasia, and the esophageal biopsy was obtained. Even though this appeared normal. The patient tolerated the procedure well and was brought to recovery in stable condition
[2018-01-15 14:15] VITALS: BP 110/78; BP 115/71; PULSE 71; RESP 18; TEMP 36.5; O2SAT 93
[2018-01-15 14:20] VITALS: BP 101/66; BP 115/71; PULSE 72; RESP 18; O2SAT 94
[2018-01-15 14:25] VITALS: BP 115/71; BP 126/76; PULSE 75; RESP 18; O2SAT 95
[2018-01-15 14:30] VITALS: BP 104/69; BP 115/71; PULSE 75; RESP 18; TEMP 36.8; O2SAT 94
[2018-01-15 14:52] VITALS: BP 115/71
== END 2018-01-15 15:18 | disposition home or self-care (01) ==
LOC: EN 11:41
PROVIDERS: Family Provider Family Medicine; PCP Family Medicine; Visit Provider Surgery
PROC: 0DJ08ZZ Inspection of Upper Intestinal Tract, Via Natural or Artificial Opening Endoscopic (ICD-10-PCS; CPT 43235; principal; 2018-01-15 12:55)
DX: Q27.33 Arteriovenous malformation of digestive system vessel (principal); K29.70 Gastritis, unspecified, without bleeding; K20.9 Esophagitis, unspecified; E78.00 Pure hypercholesterolemia, unspecified; Z85.828 Personal history of other malignant neoplasm of skin; N18.3 Chronic kidney disease, stage 3 (moderate); I48.91 Unspecified atrial fibrillation; Z79.899 Other long term (current) drug therapy; Z79.82 Long term (current) use of aspirin; Z79.51 Long term (current) use of inhaled steroids; I12.9 Hypertensive chronic kidney disease with stage 1 through stage 4 chronic kidney disease, or unspecified chronic kidney disease; J44.9 Chronic obstructive pulmonary disease, unspecified; M19.90 Unspecified osteoarthritis, unspecified site; F17.210 Nicotine dependence, cigarettes, uncomplicated
CPT/HCPCS: 43239; 88305; 88313; 88342; J7120

== ENCOUNTER 2018-05-29 07:13 | Inpatient (IN) | payer MEDICARE, MEDICAID, SELFPAY ==
[2018-05-29] VITALS (17 sets, daily range): BP systolic 118–152; BP diastolic 56–91; PULSE 66–102; RESP 12–22; TEMP 36.1–37.4; O2SAT 93–100; BMI 27.5; BMI 26.0
--- NOTE | 2018-05-29 07:18 | CT_ITS ---
STUDY: CT BRAIN WITHOUT CONTRAST REASON FOR EXAM: Male, 67 years old. Slurred speech. RADIATION DOSAGE (If Supplied By Facility): CTDIvol = ( 44.99 ) mGy, DLP = ( 829.85 ) mGycm TECHNIQUE: Transaxial CT imaging of the brain was performed without administration of intravenous contrast material. Individualized dose optimization techniques were used for this CT. COMPARISON: 06/03/2016. FINDINGS: Normal soft tissue structures. Normal calvarium. Normal size ventricles and extra-axial spaces for the patient's age. Normal white matter tracts of the cerebral hemispheres. Normal basal ganglia and thalami. Normal brainstem. Normal cerebellum. There is atherosclerotic calcification of the left vertebral and bilateral cavernous carotid arteries. There is no intracranial hemorrhage. There are no findings of an acute ischemic infarction. There is mucoperiosteal thickening, consistent with mild chronic sinusitis of bilateral ethmoid and right maxillary sinuses. There is no evidence for acute sinusitis. CT/Brain/Head without Contrast IMPRESSION: Atherosclerotic calcifications of the vertebral and cavernous carotid arteries. No demonstrated acute intracranial process. N.B. : The above information has been verbally conveyed by Ricardo Zapata MD to Dr Gareth MD, on 05/29/2018 07:44:44 (ET). Electronically Signed: Ricardo Zapata MD at 7:37 EST , Service support ,
--- NOTE | 2018-05-29 07:18 | EKG12_ITS ---
Test Reason : ILLNESS Blood Pressure : / mmHG Vent. Rate : 091 BPM Atrial Rate : 091 BPM P-R Int : 108 ms QRS Dur : 098 ms QT Int : 382 ms P-R-T Axes : 079 -06 030 degrees QTc Int : 469 ms Sinus rhythm with short WA Low voltage QRS Borderline ECG Confirmed by CRISTA VENEGAS, STEVE ([id number]), fan mail editor ASIF PITT ([id number]) on 05/30/2018 1:38:42 PM Referred By: JUAN CARLOS Confirmed By:STEVE TOBIN MD
[2018-05-29 07:21] LABS: Bedside Glucose 96 mg/dL (70-110)
[2018-05-29 07:40] LABS: Absolute Lymphocyte Count 1.35 X10^3/ul (0.83-4.51); Absolute Neutrophil Count 8.2 X10^3/uL (2.0-7.7); Basophil# 0.08 X10^3/uL; Basophil% 0.7 % (0-1); Eosinophil# 0.26 X10^3/uL; Eosinophils% 2.3 % (0-5); Hemoglobin 13.4 g/dl (13.0-16.5); Lymphocyte # 1.35 X10^3/ul (4.0); Lymphocyte % 12.2 % (19-41); Mean Corp Hgb Conc 31.9 g/gl (32-36); Mean Corpuscular Hgb 30.3 pg (27.0-32.0); Mean Platelet Vol. 10.7 fl (6.2-12.0); Monocyte# 1.17 X10^3/uL; Monocyte% 10.6 % (0-10); Neutrophil # 8.18 X10^3/uL (2.7-7.7); Neutrophil % 73.9 % (47-70); POSITIVE COUNT NO; POSITIVE DIFFERENTIAL NO; POSITIVE MORPHOLOGY NO; Platelet Count 242 K/mm3 (150-450); RBC Distribution Width SD 48.7 fl (35.1-43.9); Red Blood Count 4.42 M/mm3 (4.6-6.2); White Blood Count 11.1 K/mm3 (4.4-11.0)
[2018-05-29 07:57] LABS: Anion Gap 6 (5-15); BUN 17 mg/dL (7-18); BUN/Creat Ratio 17.7 RATIO (10-20); Calcium,Total 8.8 mg/dL (8.5-10.1); Chloride 109 mmol/L (98-107); Creatinine, Serum 0.96 mg/dL (0.70-1.30); EST Glomerular Filtration Rate 82 mL/min (>60); Est Glom Filt Rate - Afr Amer 99 mL/min (>60); Estimated Creatinine Clearance 58.45 ml/min; Glucose 99 mg/dL (74-106); Potassium 3.9 mmol/L (3.5-5.1); Sodium Level 143 mmol/L (136-145)
--- NOTE | 2018-05-29 08:02 | RAD_ITS ---
STUDY: X-RAY CHEST REASON FOR EXAM: Male, 67 years old. Bilateral rales. TECHNIQUE: Single AP portable view of the chest. COMPARISON: Comparison is made with prior study dated December 16, 2017. FINDINGS: EKG electrodes are seen. Mild increased markings at the right lung base suggestive of right basilar atelectasis. There is no demonstrated pleural abnormality. Sternal cerclage wires are present from a prior sternotomy. A metallic clip is seen in the region of the aortic valve. Normal mediastinum and katelyn. Normal visualized pulmonary arteries. There is atherosclerotic calcification of the aortic arch with tortuosity. There are diffuse degenerative changes of the visualized thoracic spine. Normal visualized ribs, clavicles, and shoulders. There is no demonstrated abnormality of the visualized soft tissue structures of the upper abdomen. RAD/Chest 1 View (Portable) IMPRESSION: Increased markings at the right lung base suggestive of right basilar atelectasis. Electronically Signed: Navin Matt MD at 8:27 EST Tel [phone], Service support ,
--- NOTE | 2018-05-29 08:02 | ED.DCSUM_ITS ---
- ER Visit Summary Date of Service: 05/29/18 Chief Complaint: Patient arrived by ambulance with strokelike symptoms. Last known well May 28 at 1900 History of Present Illness: The patient is a 67 M who presents with trouble with speech. He reports onset at 1900. He denies history of TIA or CVA. He denies history of irregular heartbeat. He denies being on anticoagulant. Review of prior records reveals patient has history of paroxysmal atrial fibrillation. There is also history coronary disease status post coronary bypass surgery, COPD, hypertension, end-stage renal disease and aspiration pneumonia. Patient reports trouble with his speech is main complaint. Squad informed me of weakness left side. He does admit to frequent falls recently with evidence of trauma to his extremities and head. Review of systems is remarkable for headache, weakness and paresthesia otherwise review of systems is unremarkable. Physical Examination: Vital signs noted and blood pressure is slightly elevated 152/74. Head is remarkable for multiple abrasions. Pupils equal round reactive paradoxic muscle intact. Sclerae anicteric. There is no subconjunctival hemorrhage. There is no clinical signs of basal skull fracture. Trachea is midline. Is no cervical spine tenderness with full active range of motion. Heart is regular. Heart tones are distant. Lungs reveal end inspiratory rales on the right greater then left. Abdomen is soft nontender. Patient has ecchymosis to upper extremities. Abdomen is soft nontender with no palpable cell mass or abdominal bruit. There is no evidence of trauma to the abdomen or back. He is alert and oriented x3. Patient has a facial droop on the left. There is a slight drift left upper extremity. Patient reports normal sensation on the left compared to right however when there is simultaneous stimuli to right and left he only perceives the right side. There was also inconsistency when only the left side was touched he reported he had sensation on the right. NIH is 4. Test Results: I received a call from the radiologist informed me that there is no acute findings on his CT. CTA was not obtained since there is a history of end-stage renal disease. Emergency Department Course and Treatment: Stroke order set was initiated. NIH was completed. At 0800 I was informed by nurse that his symptoms have improved. He still has slight slurred speech. There is still slight drift left upper extremity and his smile is still asymmetric but improved. He no longer exhibits inattention/extinction. Treatment Plan: Evaluate for TIA stroke. Workup in the emergency department was unremarkable. Patient was assigned to 23-hour PCU for further testing and evaluation. Disposition: PCU Impression: Ischemic CVA This note was generated with [employer] dictation software. It may contain incorrect words, spelling, and punctuation that were not noted in review of the chart prior to signing ED Disposition - Plan for ED Patient: Disposition: Acute Care Hospital [facility] Chief Complaint: Neuro S/Sx
[2018-05-29 08:55] LABS: International Normalized Ratio 1.1; Partial Thromboplast Time 28.9 Seconds (24.1-36.2)
--- NOTE | 2018-05-29 09:44 | NURSING ---
this RN discussed with pt to notify RN right away if pt is experiencing any new s/s.
--- NOTE | 2018-05-29 10:07 | MRI_ITS ---
STUDY: MRI BRAIN WITHOUT CONTRAST REASON FOR EXAM: Male, 67 years old. cva, slurred speech,lt sided weakness, lt facial droop. TECHNIQUE: Standardized multiplanar fat and water weighted pulse sequences were obtained. COMPARISON: 05/29/2018 CT of the head FINDINGS: There is mild cerebral atrophy with widening of the extra-axial spaces and ventricular dilatation. There are a limited number of small white matter hyperintensities, distributed throughout the deep white matter tracts of the cerebral hemispheres, consistent with mild chronic white matter ischemic changes. There is restricted diffusion involving the right frontoparietal region. There is focus of restricted diffusion at the posterior temporal lobe as well. There is a drop of signal on ADC map, consistent with acute infarctions. Normal bilateral basal ganglia. Normal thalami. There is no extra-axial fluid accumulation. Normal flow voids within the major intracranial circulation suggesting patency by spin echo criteria. Normal sella turcica, pituitary gland, infundibular stalk, optic chiasm and hypothalamus. Normal tectal plate and pineal gland. There are chronic white matter ischemic changes of the [place]. The midbrain and medulla are otherwise normal. Normal cerebellum. Normal basal cisterns. Normal bilateral temporal bones. Normal bilateral internal auditory canals. MRI/Brain without Contrast IMPRESSION: Acute right MCA infarctions. N.B. : The above information has been verbally conveyed by Vanessa Dillard MD to Madeleine Jean-Baptiste NP, on 05/29/2018 13:58:04 (ET). Electronically Signed: Vanessa Dillard MD at 13:49 EST Tel , Service support ,
--- NOTE | 2018-05-29 10:07 | MRI_ITS ---
STUDY: MRA OF THE HEAD WITHOUT CONTRAST REASON FOR EXAM: Male, 67 years old. cva, slurred speech,lt sided weakness, lt facial droop. TECHNIQUE: 3-D [id number] (TOF) imaging was performed with MIPs. The study was performed unenhanced. COMPARISON: None. FINDINGS: Normal bilateral petrous carotid arteries. There is atheromatous plaque formation of the right cavernous carotid artery, with a severe stenosis (greater than 75%). Normal left cavernous carotid artery with a normal supraclinoid bifurcation. Normal right A1 segments of the anterior cerebral artery. Normal left A1 segments of the anterior cerebral artery. Normal intact anterior communicating artery (ACOM). Normal bilateral A2 segments of the anterior cerebral arteries. Normal right M1 and M2 segments of the middle cerebral arteries, with a normal M1 bifurcation. Normal left M1 and M2 segments of the middle cerebral arteries, with a normal M1 bifurcation. There is non-visualization of the right posterior communicating artery (PCOM). There is non-visualization of the left posterior communicating artery (PCOM). There is a small atretic right vertebral artery with a dominant left vertebral artery. Normal basilar artery with a normal basilar bifurcation. Normal bilateral posterior cerebral arteries. There is no demonstrated aneurysm of the [place]. There is no major vessel occlusion or hemodynamically significant stenosis. There is no demonstrated abnormality of the visualized brain. MRI/MRA Head ONLY without Contrast IMPRESSION: Greater than 75% stenosis of the right cavernous carotid artery. Further evaluation with CTA can be obtained. Electronically Signed: Vanessa Dillard MD at 13:51 EST Tel , Service support ,
--- NOTE | 2018-05-29 10:08 | ECHOCS_ITS ---
Reason For Study: TIA/CVA Procedure This was a 2D Doppler, Color Flow transthoracic echocardiogram. Exam performed portable in patient room. Left Ventricle Moderately dilated left ventricle. The estimated ejection fraction is 45 %. Stage 2 diastolic dysfunction. Posterior-Basal: Severely hypokinetic. Infero-Basal: Severely Hypokinetic. Right Ventricle Normal size and thickness. Normal systolic function. Atria Normal left atrium. Normal right atrium. Normal atrial septum. Mitral Valve The mitral valve is structurally normal. No prolapse or stenosis seen. Tricuspid Valve Normal tricuspid valve. Unable to estimate RV systolic pressure due to inadequate jet, pulmonary artery pressure probably normal. Aortic Valve Normal aortic valve. Trisinus/trileaflet aortic valve. Pulmonic Valve The pulmonic valve is not well visualized. Great Vessels Normal aortic root. Normal arch. Normal inferior vena cava. Inferior vena cava collapse with sniff. Pericardium/Pleural No pericardial effusion. Medication Diluted definity 5ml given slow IV push to enhance endocardial definition. MMode/2D Measurements & Calculations LVIDd: 5.6 cm IVSd: 0.70 cm Ao root diam: 2.7 cm LVIDs: 4.3 cm LVPWd: 0.85 cm RVDd: 3.6 cm FS: 22.8 % LAV(MOD-bp): 48.8 ml LA A4 area: 16.0 cm2 LA dimension(2D): 4.1 cm LAV(MOD-bp) Indexed: 28.8 ml/m2 LAV(MOD-sp2): 54.3 ml LAV(MOD-sp4): 42.4 ml RA A4 area: 15.1 cm2 Doppler Measurements & Calculations MV E max carl: 96.3 cm/sec Lat Peak E' Carl: 12.2 cm/sec Med Peak E' Carl: 6.5 cm/sec MV A max carl: 62.7 cm/sec E/E' lat: 7.9 E/E' med: 14.8 MV E/A: 1.5 Ao V2 max: 113.1 cm/sec LV V1 max: 93.9 cm/sec PA V2 max: 80.9 cm/sec Ao max P.1 mmHg LV V1 max P.5 mmHg Interpretation Summary Moderately dilated left ventricle. The estimated ejection fraction is 45 %. Stage 2 diastolic dysfunction. Posterior-Basal: Severely hypokinetic. Infero-Basal: Severely Hypokinetic. Unable to estimate RV systolic pressure due to inadequate jet, pulmonary artery pressure probably normal. Compared to echo report dated 09/26/2015, no appreciable changes noted. The study was technically difficult. Contrast injection was performed. Ordering Physician: KAI Flores Referring Physician: MD Kings Alexander Performed By: Jaqueline Torres RDCS
--- NOTE | 2018-05-29 10:08 | MRI_ITS ---
STUDY: MRA NECK WITHOUT CONTRAST REASON FOR EXAM: Male, 67 years old. cva, slurred speech,lt sided weakness, lt facial droop. TECHNIQUE: Source images were obtained, MIPs were performed. The study was performed unenhanced. Technologist Notes Only 1 set of images was completed. Pt refused further imaging d/t SOB COMPARISON: None. FINDINGS: RIGHT CAROTID ARTERIES: Antegrade flow within the right common carotid artery (CCA). Antegrade flow within the right carotid bulb. Antegrade flow within the right internal carotid (ICA) artery. Antegrade flow within the visualized cervical portion of the right internal carotid artery. LEFT CAROTID ARTERIES: There is a long segment narrowing of the distal common carotid artery with areas of greater than 70% stenosis. There is moderate atherosclerotic plaque formation with moderate narrowing of the carotid bulb. There is extensive atherosclerotic plaque formation of the origin of the left internal carotid artery with an estimated stenosis of greater than 70%. Antegrade flow within the visualized cervical portion of the left internal carotid artery. VERTEBRAL ARTERIES: There is antegrade flow within the bilateral vertebral arteries with a small right vertebral artery, and a dominant left vertebral artery. MRI/MRA Neck without Contrast IMPRESSION: High-grade stenosis of the left common and internal carotid artery. Further evaluation with CTA is recommended. Electronically Signed: Vanessa Dillard MD at 13:55 EST Tel , Service support ,
--- NOTE | 2018-05-29 10:17 | HP.PCM_ITS ---
Addendum entered and electronically signed by KAI Flores 05/29/18 14:00: Code Visit MRI of brain with acute right MCA infarcts. MRA of neck with high-grade stenosis of the left common and internal carotid artery. Will obtain CTA of neck. Original Note: <Madeleine Jean-Baptiste - Last Filed: 05/29/18 10:35> Problem List (1) Aspiration into airway Status: Resolved (2) Benign prostatic hypertrophy Status: Chronic (3) Hypertension Status: Chronic (4) Stage 3 chronic kidney disease Status: Chronic (5) Chronic respiratory failure Status: Chronic (6) COPD (chronic obstructive pulmonary disease) Status: Chronic (7) Paroxysmal atrial fibrillation Status: Chronic (8) DDD (degenerative disc disease) Status: Chronic (9) CAD (coronary artery disease) Status: Chronic (10) Hx of CABG Status: Chronic (11) Myoclonic jerking Status: Chronic History of Present Illness Date of Admission: 05/29/18 Chief Complaint: Left arm weakness, slurred speech. The patient is a 67 year old M who presents emergency room due to slurred speech and left-sided weakness. Patient reports he fell out of bed this morning and was unable to get himself up. He states he was short of breath at that time and was able to get himself to his night stand to use his inhaler. He lives with his sister who then called the ambulance for assistance. Patient states he has chronic shortness of breath due to COPD. He reports his breathing improved after using inhaler. He continues to complain of left arm weakness and slurred speech. Denies history of CVA. Denies vision changes. He denies hitting his head when falling out of bed. His past medical history includes CAD status post CABG, paroxysmal atrial fibrillation, COPD with chronic hypoxic respiratory failure, chronic kidney disease stage III, hypertension, hyperlipemia, BPH, gout, GERD, osteoporosis, depression. Past Medical History Past Medical History (Chronic Problems): Chronic Problems Benign prostatic hypertrophy (Chronic) Hypertension (Chronic) Stage 3 chronic kidney disease (Chronic) Chronic respiratory failure (Chronic) COPD (chronic obstructive pulmonary disease) (Chronic) Paroxysmal atrial fibrillation (Chronic) DDD (degenerative disc disease) (Chronic) CAD (coronary artery disease) (Chronic) Hx of CABG (Chronic) Myoclonic jerking (Chronic) Allergies No Known Allergies Allergy (Verified 05/29/18 07:20) Home Medications: Ambulatory Orders Medication Instructions Recorded Albuterol Aerosols [Ventolin 2.5 mg INHALATION Q4H PRN PRN 07/04/16 Aerosols] Albuterol Inhaler [Ventolin Hfa] 2 puff INHALATION Q6H PRN PRN 07/04/16 Allopurinol 100 mg PO DAILY 07/04/16 Ascorbic Acid [Vitamin C] 1,000 mg PO DAILY 07/04/16 Aspirin [Aspirin, Baby] 162 mg PO DAILY@0800 07/04/16 Atorvastatin Calcium [Lipitor] 10 mg PO QHS 07/04/16 Budesonide [Pulmicort] 0.25 mg IH BID 07/04/16 Cholecalciferol (Vitamin D3) 2,000 unit PO DAILY 07/04/16 [Vitamin D3] Colchicine 0.6 mg PO BID PRN 07/04/16 Ipratropium [Atrovent Aerosols] 0.25 mg INHALATION 4X/DAY 07/04/16 Nitroglycerin 0.4 mg SL PRN PRN 07/04/16 Omeprazole [Prilosec] 20 mg PO DAILY 07/04/16 Pregabalin [Lyrica] 150 mg PO BID 07/04/16 Spironolactone [Aldactone] 12.5 mg PO DAILY 07/04/16 Tamsulosin HCl [Flomax] 0.4 mg PO DAILY 07/04/16 traMADol [Ultram] 50 mg PO Q4H PRN PRN 07/04/16 Alendronate Sodium [Fosamax] 70 mg PO QWEEK 07/15/17 Baclofen 10 mg PO BID PRN PRN 07/15/17 Metoprolol Succinate 25 mg PO DAILY 05/29/18 Surgical History: - - Bilateral carpal tunnel surgery, skin cancer status post resection, CABG, bilateral cataract surgery. Psychiatric History: Depression Lives: With Family - With sister. Smoking Status: Current every day smoker Alcohol: None Drugs: None - *Family History Maternal History Items: Asthma, - - Denies maternal cardiac history. Paternal History Items: - - Denies paternal cardiac history. Sibling History Items: No pertinent history Review of Systems Constitutional: Denies: Chills, Fever, Weight Change Eyes: Denies: Double vision, Vision Change HEENT: Denies: Head Aches, Sinus Congestion, Sinus Drainage Cardiovascular: Denies: Chest Pain, Edema, Light Headedness, Palpitations, Syncope Respiratory: Reports: Shortness of Breath - Chronic. Denies: Sputum production Gastrointestinal: Denies: Abdominal Pain, Diarrhea, Nausea, Vomiting Genitourinary: Denies: Dysuria Musculoskeletal: Denies: Joint Pain, Joint Tenderness Skin: Denies: Rash, Wounds Neurological: Reports: Slurred speech, - - Left facial droop, left arm weakness.. Denies: Confusion, Numbness, Tingling Psychiatric: Reports: Depression Hematologic/ Lymphatic: Denies: Easy Bruising, Easy Bleeding VTE Information - Inpt Only VTE Present on Admission: No VTE Mechan Device Prophylaxis: None VTE Pharm Prophylaxis ordered?: Yes Patient Problems: Active and Suspected Problems CVA (cerebral vascular accident) (Acute) - Physical Exam General: Alert, Oriented x3, Cooperative HEENT: Atraumatic, PERRLA, EOMI, Normocephalic Oral: Moist Mucosa Neck: Supple, No JVD, Negative Carotid Bruits Lungs: Clear to auscultation, Diminished Cardiovascular: Regular rate, Regular Rhythm, Normal S1, Normal S2, No murmurs Abdomen: Bowel Sounds Present, Soft, Non Tender, Non-Distended Extremities: No clubbing, No cyanosis, No edema, Capillary Refill Less than 3 Seconds Skin: No rashes, No breakdown, - - Bilateral upper extremity ecchymosis Musculoskeletal: No Tenderness to Palpation of Joints or Extremities Neurological: Cranial nerves II-XII grossly intact, - - Mild left facial droop, left arm drift/weakness. Psych/Mental Status: Normal Affect, Appropriate Vital Signs Temp Pulse Resp BP Pulse Ox 98.3 F 91 16 146/72 H 98 05/29/18 09:08 05/29/18 09:46 05/29/18 09:08 05/29/18 09:08 05/29/18 09:08 Oxygen Flow Rate (L/min) 2 Oxygen Delivery Method Nasal Cannula Weight: 147 lb 0.773 oz Body Mass Index (BMI) 26.0 Finger Stick Blood Glucose 96 Laboratory Tests Past 24 Hrs 05/29/18 05/29/18 05/29/18 07:31 07:31 07:31 WBC 11.1 H RBC 4.42 L Hgb 13.4 Hct 42.0 MCV 95.0 H MCH 30.3 MCHC 31.9 L RDW 14.0 RDW Differential 48.7 H Plt Count 242 MPV 10.7 Immature Gran % (Auto) 0.300 Neut % (Auto) 73.9 H Lymph % (Auto) 12.2 L [place] % (Auto) 10.6 H Eos % (Auto) 2.3 Baso % (Auto) 0.7 Absolute Neuts (auto) 8.2 H Absolute Lymphs (auto) 1.35 Total Counted Not Reportable PT Cancelled INR Cancelled APTT Cancelled Sodium 143 Potassium 3.9 Chloride 109 H Carbon Dioxide 28.0 Anion Gap 6 BUN 17 Creatinine 0.96 Estim Creat Clear Calc 58.45 Est GFR (MDRD) Af Amer 99 Est GFR (MDRD) Non-Af 82 BUN/Creatinine Ratio 17.7 Glucose 99 Calcium 8.8 Troponin I 0.040 05/29/18 05/29/18 07:54 08:30 WBC RBC Hgb Hct MCV MCH MCHC RDW RDW Differential Plt Count MPV Immature Gran % (Auto) Neut % (Auto) Lymph % (Auto) [place] % (Auto) Eos % (Auto) Baso % (Auto) Absolute Neuts (auto) Absolute Lymphs (auto) Total Counted PT Cancelled 14.0 INR Cancelled 1.1 APTT Cancelled 28.9 Sodium Potassium Chloride Carbon Dioxide Anion Gap BUN Creatinine Estim Creat Clear Calc Est GFR (MDRD) Af Amer Est GFR (MDRD) Non-Af BUN/Creatinine Ratio Glucose Calcium Troponin I POC Glucose 05/29/18 07:17 POC Glucose 96 Assessment/Plan All Active Problems CVA (cerebral vascular accident) (Acute) Aspiration into airway (Resolved) Sepsis (Ruled-out) 1. Left facial droop/left arm weakness, suspected CVA-brain CT on admission with no acute intracranial process. Obtain MRI of brain, MRA of head and neck. Obtain echo. Consult neurology. NIH Q4. Aspirin, statin. Lipid panel in a.m. PT/OT/ST. NPO pending speech eval. 2. CAD status post CABG-follows with Dr. Delgado, [facility]ology. Continue aspirin, statin, beta-janet. 3. Paroxysmal atrial fibrillation-reports he was on anticoagulation in the past but was taken off due to remaining in sinus rhythm. Currently in sinus rhythm. Continue metoprolol. 4. Chronic COPD with chronic hypoxic respiratory failure-patient wears supplemental oxygen at night. PRN albuterol aerosols. 5. Chronic kidney disease stage III-stable. 6. Hypertension-permissive. Patient on metoprolol, Aldactone. 7. Hyperlipidemia-continue statin. 8. BPH-continue Flomax regimen. 9. Gout-continue allopurinol regimen. 10. GERD-continue PPI. 11. Osteoporosis-on Fosamax weekly. 12. Depression-continue Lyrica regimen. DVT prophylaxis-Lovenox subcu This patient was seen by KAI Flores under the supervision of Dr. Barrera. <Elmer Barrera - Last Filed: 05/29/18 13:35> Problem List (1) CVA (cerebral vascular accident) Status: Acute Qualifiers: CVA mechanism: unspecified Qualified Code(s): I63.9 - Cerebral infarction, unspecified History of Present Illness Chief Complaint: left sided weakness. slurred speech. The patient is a 67 year old M who was in his normal state of health awoke, but the fell out of bed. Noted that he was week on his left side (dropping his phone out of his left hand--he is right handed). He presented to the ED and underwent a work up that was unremarkable. He is being admitted for further CVA evaluation. He has never had a stroke previously.[] Past Medical History Allergies No Known Allergies Allergy (Verified 05/29/18 07:20) Surgical History: - Psychiatric History: Depression Lives: With Family Smoking Status: Current every day smoker Tobacco Use: Cigarettes Alcohol: None Drugs: None - *Family History Maternal History Items: Asthma, - Paternal History Items: - Sibling History Items: No pertinent history Review of Systems Constitutional: Denies: Chills, Fever, Weight Change Eyes: Denies: Double vision, Vision Change HEENT: Denies: Head Aches, Sinus Congestion, Sinus Drainage Cardiovascular: Denies: Chest Pain, Edema, Light Headedness, Palpitations, Syncope Respiratory: Reports: Shortness of Breath. Denies: Sputum production Gastrointestinal: Denies: Abdominal Pain, Diarrhea, Nausea, Vomiting Genitourinary: Denies: Dysuria Musculoskeletal: Denies: Joint Pain, Joint Tenderness Skin: Denies: Rash, Wounds Neurological: Reports: Slurred speech. Denies: Confusion, Numbness, Tingling Psychiatric: Reports: Depression Hematologic/ Lymphatic: Denies: Easy Bruising, Easy Bleeding Comment: A 10 point review of systems were negative except as mentioned in the history of present illness and the other review of systems. VTE Information - Inpt Only VTE Present on Admission: No VTE Mechan Device Prophylaxis: None VTE Pharm Prophylaxis ordered?: Yes - Physical Exam General: Alert, Cooperative HEENT: Atraumatic, Normocephalic Oral: Moist Mucosa, No Gingival or Mucosal Lesions/ Ulcerations, - - Edentulous Neck: No Nodes, Thyroid Normal Size and Texture Neurological: Cranial nerves II-XII grossly intact, Motor Exam 5/5 strength throughout, - - Mild left facial droop. Muscle strength was intact in upper and lower extremities. Coordination was normal in the upper extremities but slightly diminished in the left lower extremity with heel to louie. Psych/Mental Status: Normal Affect, Appropriate Vital Signs Temp Pulse Resp BP Pulse Ox 36.8 C 99 20 H 146/72 H 98 05/29/18 09:08 05/29/18 11:00 05/29/18 10:40 05/29/18 09:08 05/29/18 09:08 Oxygen Flow Rate (L/min) 2 Oxygen Delivery Method Nasal Cannula Weight: 66.7 kg Body Mass Index (BMI) 26.0 Finger Stick Blood Glucose 96 Intake and Output for Last 24 Hours 05/27/18 05/28/18 05/29/18 23:59 23:59 23:59 Intake Total 120 / 120 Balance 120 / 120 Laboratory Tests Past 24 Hrs 05/29/18 05/29/18 05/29/18 07:31 07:31 07:31 WBC 11.1 H RBC 4.42 L Hgb 13.4 Hct 42.0 MCV 95.0 H MCH 30.3 MCHC 31.9 L RDW 14.0 RDW Differential 48.7 H Plt Count 242 MPV 10.7 Immature Gran % (Auto) 0.300 Neut % (Auto) 73.9 H Lymph % (Auto) 12.2 L [place] % (Auto) 10.6 H Eos % (Auto) 2.3 Baso % (Auto) 0.7 Absolute Neuts (auto) 8.2 H Absolute Lymphs (auto) 1.35 Total Counted Not Reportable PT Cancelled INR Cancelled APTT Cancelled Sodium 143 Potassium 3.9 Chloride 109 H Carbon Dioxide 28.0 Anion Gap 6 BUN 17 Creatinine 0.96 Estim Creat Clear Calc 58.45 Est GFR (MDRD) Af Amer 99 Est GFR (MDRD) Non-Af 82 BUN/Creatinine Ratio 17.7 Glucose 99 Calcium 8.8 Troponin I 0.040 05/29/18 05/29/18 05/29/18 07:54 08:30 10:40 WBC RBC Hgb Hct MCV MCH MCHC RDW RDW Differential Plt Count MPV Immature Gran % (Auto) Neut % (Auto) Lymph % (Auto) [place] % (Auto) Eos % (Auto) Baso % (Auto) Absolute Neuts (auto) Absolute Lymphs (auto) Total Counted PT Cancelled 14.0 INR Cancelled 1.1 APTT Cancelled 28.9 Sodium Potassium Chloride Carbon Dioxide Anion Gap BUN Creatinine Estim Creat Clear Calc Est GFR (MDRD) Af Amer Est GFR (MDRD) Non-Af BUN/Creatinine Ratio Glucose Calcium Troponin I 0.036 POC Glucose 05/29/18 07:17 POC Glucose 96 Clinical Impression(s) from Imaging Studies Brain CT 05/29/18 07:18 IMPRESSION: Atherosclerotic calcifications of the vertebral and cavernous carotid arteries. No demonstrated acute intracranial process. N.B. : The above information has been verbally conveyed by Ricardo Zapata MD to Dr Gareth MD, on 05/29/2018 07:44:44 (ET). Electronically Signed: Ricardo Zapata MD at 7:37 EST , Service support , Chest X-Ray 05/29/18 08:02 IMPRESSION: Increased markings at the right lung base suggestive of right basilar atelectasis. Electronically Signed: Navin Matt MD at 8:27 EST Tel [phone], Service support , Assessment/Plan Patient seen and examined independently. Data reviewed. I agree with the above note by the nurse practitioner. 1. Suspected acute stroke Time of onset is unknown patient was normal at night Patient is outside the window for TPA Patient seen by neurology, who recommends aspirin, statin and clopidogrel Patient will undergo an MRI, MRA, echocardiogram. Physical, occupational and speech therapies 2. Paroxysmal atrial fibrillation Continue with aspirin Plavix for now May need an event monitor Has been taken off anticoagulation in the past due to being in normal sinus rhythm 3. COPD Stable Continue with breathing treatments Code Visit Inpatient E&M: 90028 Init Hosp L3
[2018-05-29] MEDS: Albuterol 2.5 MG/3 ML VIAL.NEB. INHALATION (10:33)
--- NOTE | 2018-05-29 10:36 | CON.PCM_ITS ---
Reason for Consult Date of Consultation: 05/29/18 Reason for Consultation: left sided weakness History of Present Illness: 67 yo right handed white male presents after awakening this am having fallen out of bed for unclear reasons, after fell out of bed noted left side weakness, eventually able to get up and sister called the squad, reports left side still weak, reports his speech was severely affected, now improved but not baseline. felt normal when went to bed last night at 10pm. no previous episodes of falling out of bed in sleep. no enuresis. no tongue biting. 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 reports he has a history of afib which went away. previously on coumadin, now takes asa daily. +tob. no etoh. no snoring. believes his current symptoms may be due to sob due to missed inhalers. Per admit note: The patient is a 67 year old M who presents emergency room due to slurred speech and left-sided weakness. Patient reports he fell out of bed this morning and was unable to get himself up. He states he was short of breath at that time and was able to get himself to his night stand to use his inhaler. He lives with his sister who then called the ambulance for assistance. Patient states he has chronic shortness of breath due to COPD. He reports his breathing improved after using inhaler. He continues to complain of left arm weakness and slurred speech. Denies history of CVA. Denies vision changes. He denies hitting his head when falling out of bed. His past medical history includes CAD status post CABG, paroxysmal atrial fibrillation, COPD with chronic hypoxic respiratory failure, chronic kidney disease stage III, hypertension, hyperlipemia, BPH, gout, GERD, osteoporosis, depression. Past Medical History Past Medical History (Chronic Problems): Chronic Problems Benign prostatic hypertrophy (Chronic) Hypertension (Chronic) Stage 3 chronic kidney disease (Chronic) Chronic respiratory failure (Chronic) COPD (chronic obstructive pulmonary disease) (Chronic) Paroxysmal atrial fibrillation (Chronic) DDD (degenerative disc disease) (Chronic) CAD (coronary artery disease) (Chronic) Hx of CABG (Chronic) Myoclonic jerking (Chronic) Allergies No Known Allergies Allergy (Verified 05/29/18 07:20) Home Medications: Ambulatory Orders Medication Instructions Recorded Albuterol Aerosols [Ventolin 2.5 mg INHALATION Q4H PRN PRN 07/04/16 Aerosols] Albuterol Inhaler [Ventolin Hfa] 2 puff INHALATION Q6H PRN PRN 07/04/16 Allopurinol 100 mg PO DAILY 07/04/16 Ascorbic Acid [Vitamin C] 1,000 mg PO DAILY 07/04/16 Aspirin [Aspirin, Baby] 162 mg PO DAILY@0800 07/04/16 Atorvastatin Calcium [Lipitor] 10 mg PO QHS 07/04/16 Budesonide [Pulmicort] 0.25 mg IH BID 07/04/16 Cholecalciferol (Vitamin D3) 2,000 unit PO DAILY 07/04/16 [Vitamin D3] Colchicine 0.6 mg PO BID PRN 07/04/16 Ipratropium [Atrovent Aerosols] 0.25 mg INHALATION 4X/DAY 07/04/16 Nitroglycerin 0.4 mg SL PRN PRN 07/04/16 Omeprazole [Prilosec] 20 mg PO DAILY 07/04/16 Pregabalin [Lyrica] 150 mg PO BID 07/04/16 Spironolactone [Aldactone] 12.5 mg PO DAILY 07/04/16 Tamsulosin HCl [Flomax] 0.4 mg PO DAILY 07/04/16 traMADol [Ultram] 50 mg PO Q4H PRN PRN 07/04/16 Alendronate Sodium [Fosamax] 70 mg PO QWEEK 07/15/17 Baclofen 10 mg PO BID PRN PRN 07/15/17 Metoprolol Succinate 25 mg PO DAILY 05/29/18 Surgical History: - - Bilateral carpal tunnel surgery, skin cancer status post resection, CABG, bilateral cataract surgery. Psychiatric History: Depression Lives: With Family - With sister. Smoking Status: Current every day smoker Alcohol: None Drugs: None - *Family History Maternal History Items: Asthma, - - Denies maternal cardiac history. Paternal History Items: - - Denies paternal cardiac history. Sibling History Items: No pertinent history Review of Systems Constitutional: Denies: Chills, Fever, Night Sweats, Weight Change Eyes: Denies: Blurred vision HEENT: Denies: Head Aches, Sinus Congestion, Sinus Drainage Cardiovascular: Denies: Chest Pain, Palpitations Respiratory: Reports: Shortness of Breath. Denies: Cough, Shortness of breath at rest, Sputum production Gastrointestinal: Denies: Abdominal Pain, Nausea, Vomiting Genitourinary: Denies: Dysuria Musculoskeletal: Denies: Joint Pain, Joint Tenderness Skin: Denies: Rash, Wounds Neurological: Reports: Focal weakness - left side per hpi. Denies: Numbness, Tingling Psychiatric: Denies: Anxiety, Depression, Homicidal Ideations, Suicidal Ideations Hematologic/ Lymphatic: Denies: Easy Bruising, Easy Bleeding - Physical Exam General: Alert, Oriented x3, Cooperative, No apparent distress HEENT: Atraumatic, PERRLA, EOMI Neurological: Cranial nerves II-XII grossly intact, Slurred Speech, - - mild lue drift and discoord with orbit testing Psych/Mental Status: Normal Affect, Alert and oriented to time, place, person, mood and affect Vital Signs Temp Pulse Resp BP Pulse Ox 36.8 C 91 16 146/72 H 98 05/29/18 09:08 05/29/18 09:46 05/29/18 09:08 05/29/18 09:08 05/29/18 09:08 Oxygen Flow Rate (L/min) 2 Oxygen Delivery Method Nasal Cannula Weight: 66.7 kg Body Mass Index (BMI) 26.0 Finger Stick Blood Glucose 96 Laboratory Tests Past 24 Hrs 05/29/18 05/29/18 05/29/18 07:31 07:31 07:31 WBC 11.1 H RBC 4.42 L Hgb 13.4 Hct 42.0 MCV 95.0 H MCH 30.3 MCHC 31.9 L RDW 14.0 RDW Differential 48.7 H Plt Count 242 MPV 10.7 Immature Gran % (Auto) 0.300 Neut % (Auto) 73.9 H Lymph % (Auto) 12.2 L [place] % (Auto) 10.6 H Eos % (Auto) 2.3 Baso % (Auto) 0.7 Absolute Neuts (auto) 8.2 H Absolute Lymphs (auto) 1.35 Total Counted Not Reportable PT Cancelled INR Cancelled APTT Cancelled Sodium 143 Potassium 3.9 Chloride 109 H Carbon Dioxide 28.0 Anion Gap 6 BUN 17 Creatinine 0.96 Estim Creat Clear Calc 58.45 Est GFR (MDRD) Af Amer 99 Est GFR (MDRD) Non-Af 82 BUN/Creatinine Ratio 17.7 Glucose 99 Calcium 8.8 Troponin I 0.040 05/29/18 05/29/18 07:54 08:30 WBC RBC Hgb Hct MCV MCH MCHC RDW RDW Differential Plt Count MPV Immature Gran % (Auto) Neut % (Auto) Lymph % (Auto) [place] % (Auto) Eos % (Auto) Baso % (Auto) Absolute Neuts (auto) Absolute Lymphs (auto) Total Counted PT Cancelled 14.0 INR Cancelled 1.1 APTT Cancelled 28.9 Sodium Potassium Chloride Carbon Dioxide Anion Gap BUN Creatinine Estim Creat Clear Calc Est GFR (MDRD) Af Amer Est GFR (MDRD) Non-Af BUN/Creatinine Ratio Glucose Calcium Troponin I POC Glucose 05/29/18 07:17 POC Glucose 96 Current Medications Generic Name Dose Route Start Last Admin Trade Name Freq PRN Reason Stop Dose Admin Albuterol Sulfate 2.5 mg 05/29/18 10:15 05/29/18 10:33 Ventolin Aerosols INHALATION 2.5 mg Q2H PRN PRN Administration SHORTNESS OF BREATH Aspirin 81 mg 05/30/18 08:00 Aspirin, Baby PO DAILY@0800 ON LICENSE OF [facility] Atorvastatin Calcium 80 mg 05/29/18 22:00 Lipitor PO QHS ON LICENSE OF [facility] Enoxaparin Sodium 40 mg 05/30/18 10:00 Lovenox SC DAILY@1000 ON LICENSE OF [facility] Current Home Med List Medication Instructions Recorded Confirmed Type Albuterol Aerosols [Ventolin 2.5 mg INHALATION Q4H PRN PRN 07/04/16 05/29/18 History Aerosols] Albuterol Inhaler [Ventolin Hfa] 2 puff INHALATION Q6H PRN PRN 07/04/16 05/29/18 History Allopurinol 100 mg PO DAILY 07/04/16 05/29/18 History Ascorbic Acid [Vitamin C] 1,000 mg PO DAILY 07/04/16 05/29/18 History Aspirin [Aspirin, Baby] 162 mg PO DAILY@0800 07/04/16 05/29/18 History Atorvastatin Calcium [Lipitor] 10 mg PO QHS 07/04/16 05/29/18 History Budesonide [Pulmicort] 0.25 mg IH BID 07/04/16 05/29/18 History Cholecalciferol (Vitamin D3) 2,000 unit PO DAILY 07/04/16 05/29/18 History [Vitamin D3] Colchicine 0.6 mg PO BID PRN 07/04/16 05/29/18 History Ipratropium [Atrovent Aerosols] 0.25 mg INHALATION 4X/DAY 07/04/16 05/29/18 History Nitroglycerin 0.4 mg SL PRN PRN 07/04/16 05/29/18 History Omeprazole [Prilosec] 20 mg PO DAILY 07/04/16 05/29/18 History Pregabalin [Lyrica] 150 mg PO BID 07/04/16 05/29/18 History Spironolactone [Aldactone] 12.5 mg PO DAILY 07/04/16 05/29/18 History Tamsulosin HCl [Flomax] 0.4 mg PO DAILY 07/04/16 05/29/18 History traMADol [Ultram] 50 mg PO Q4H PRN PRN 07/04/16 05/29/18 History Alendronate Sodium [Fosamax] 70 mg PO QWEEK 07/15/17 05/29/18 History Baclofen 10 mg PO BID PRN PRN 07/15/17 05/29/18 History Metoprolol Succinate 25 mg PO DAILY 05/29/18 05/29/[address] reviewed, no acute Assessment/Plan All Active Problems Aspiration into airway (Resolved) Sepsis (Ruled-out) left sided weakness, suspect small vessel right BG infarct await mri tele pt/ot/sp asa/plavix/statin rx
[2018-05-29] MEDS: Metoprolol(XL)Succ 25 MG Tablet PO (13:36)
[2018-05-29] MEDS: Clopidogrel Bisulfate 75 MG Tablet PO (13:36)
[2018-05-29] MEDS: Allopurinol 100 MG Tablet PO (13:36)
[2018-05-29] MEDS: Aspirin 81 MG TAB.CHEW 162 MG PO (13:36)
[2018-05-29] MEDS: Ascorbic Acid 500 MG Tablet 1000 MG PO (13:36)
[2018-05-29] MEDS: Pregabalin 75 MG Capsule 150 MG PO ×2 (13:37→21:34)
[2018-05-29] MEDS: Enoxaparin 40 MG/0.4 ML Syringe SC (13:37)
[2018-05-29] MEDS: Ipratropium/Albuterol Sulfate 3 ML AMPUL.NEB INHALATION ×2 (13:52→18:49)
--- NOTE | 2018-05-29 14:11 | CT_ITS ---
STUDY: CTA NECK WITH CONTRAST REASON FOR EXAM: Male, 67 years old. Right hemispheric stroke. RADIATION DOSAGE (If Supplied By Facility): CTDIvol = ( 22.96 ) mGy, DLP = ( 629.69 ) mGycm TECHNIQUE: CT angiography with multi-detector data acquisition was performed from the aortic arch to the skull base following intravenous administration of 100 ml of Isovue 370 contrast. MIP images were reconstructed from the axial data set. Post-processing of the angiographic images was performed, with multiplanar reformation and 3D reconstruction. Individualized dose optimization techniques were used for this CT. COMPARISON: MRA neck 1301 hours. FINDINGS: AORTIC ARCH: There is atherosclerotic calcific plaque formation of the aortic arch and great vessels arising from the aortic arch, without a hemodynamically significant stenosis. There is normal anatomic origin of the brachiocephalic, left common carotid, and left subclavian arteries. Atherosclerotic calcific plaque formation also seen at the takeoff of the right subclavian artery without significant stenosis RIGHT CAROTID ARTERIES: Mild eccentric atherosclerotic calcification of the vessel takeoff as well as mild to moderate calcific plaquing at the distal third of the vessel. There is mild to moderate calcific atherosclerotic plaque formation with minimal narrowing of the right carotid bulb. There is mild atherosclerotic plaque formation of the origin of the right internal carotid artery with less than 25% cross sectional diameter stenosis. Normal visualized cervical portion of the right internal carotid artery. There is mild atherosclerotic plaque formation of the origin of the right external carotid artery with less than 25% cross sectional diameter stenosis. LEFT CAROTID ARTERIES: There is atherosclerotic plaque formation of the common carotid artery origin, but without a hemodynamically significant stenosis. Moderate calcific plaquing with less than 50% stenosis also seen at the midsegment of the vessel or this is followed by mixed calcified and noncalcified plaquing with greater than 70% stenosis in the distal third of the vessel. There is moderate atherosclerotic plaque formation with moderate narrowing of the carotid bulb. There is extensive calcified atherosclerotic plaque formation of the origin of the left internal carotid artery with an estimated stenosis of greater than 70%. Normal visualized cervical portion of the left internal carotid artery. There is mild atherosclerotic plaque formation of the origin of the left external carotid artery with less than 50% cross sectional diameter stenosis. VERTEBRAL ARTERIES: Focal calcific plaquing with moderate stenosis suggested at the ostium of the small-caliber 1-2 mm right vertebral artery (series 602 image 68). There is also moderate atherosclerotic narrowing at the ostium of the larger caliber 4.5 mm left vertebral artery (series 602 image 69). Occasional mild calcific plaquing of the cervical segment of the left vertebral artery without stenosis. CT/CTA Neck W/WO Contrast IMPRESSION: 1. Extensive calcific atherosclerotic plaque in the left carotid artery bifurcation with greater than 70% narrowing of the distal common carotid artery and greater than 70% ostial stenosis of the internal carotid artery. 2. Atherosclerotic calcification at the right carotid artery bifurcation without significant internal carotid artery stenosis. 3. Moderate atherosclerotic stenoses at the ostia of both right left vertebral arteries. The right vertebral artery is diminutive in caliber, while the dominant left vertebral artery is approximately 4.5 mm diameter. Electronically Signed: Jonathan Sotelo MD at 19:28 EST , Service support ,
--- NOTE | 2018-05-29 14:11 | CT_ITS ---
STUDY: CTA OF THE BRAIN REASON FOR EXAM: Male, 67 years old. Right hemispheric stroke. RADIATION DOSAGE (If Supplied By Facility): CTDIvol = ( 22.96 ) mGy, DLP = ( 629.69 ) mGycm TECHNIQUE: CT angiography was performed with a multi-detector CT scanner. Data acquisition was obtained from the skull base through the vertex following intravenous administration of 100 ml of Isovue-300. MIP images were reconstructed from the axial data set. Post-processing of the angiographic images was performed, with multiplanar reformation and 3D reconstruction. Individualized dose optimization techniques were used for this CT. COMPARISON: MRA brain 1228 hours. FINDINGS: There are atherosclerotic calcifications of the vertical segments of the bilateral petrous carotid arteries with greater than 70% stenosis on the right. Approximate 50% narrowing is suggested on the left. There is calcified plaque formation of the right cavernous carotid artery, with a mild stenosis (less than 25%). There is calcified plaque formation of the left cavernous carotid artery, with a mild stenosis (less than 25%). Normal A1 segment of the right anterior cerebral artery. Normal A1 segment of the left anterior cerebral artery. Normal intact anterior communicating artery (ACOM) on series 2 image 191. Normal bilateral A2 segments of the anterior cerebral arteries. Normal M1 and M2 segments of the right middle cerebral artery, with a normal M1 bifurcation. Normal M1 and M2 segments of the left middle cerebral artery, with a normal M1 bifurcation. There is non-visualization of the right posterior communicating artery (PCOM). There is non-visualization of the left posterior communicating artery (PCOM). The right vertebral artery is severely atretic or occluded after takeoff of the posterior inferior cerebellar (PICA) artery branch. The dominant, patent left vertebral artery shows atherosclerotic calcification just above the foramen magnum with less than 50% stenosis. Normal basilar artery with a normal basilar bifurcation. The visualized bilateral superior cerebellar (SCA) arteries are normal. There is mild to moderate tapering of the distal P1 segment of the right posterior cerebral artery. Normal P1 segment of the left posterior cerebral artery. Normal P2 and visualized P3 segments of the bilateral posterior cerebral arteries. Curved, fingerlike projection from the confluence of the left vertical petrous segment to the proximal carotid siphon (series 601 image 56), extending towards the sella turcica may be a saccular aneurysm. There is no demonstrated abnormality of the visualized brain. CT/CTA Head W/WO Contrast IMPRESSION: 1. Atherosclerotic calcifications of the vertical petrous segments of the internal carotid arteries with greater than 70% stenosis on the right and approximately 50% narrowing on the left. 2. Additional calcific plaquing in the cavernous siphons of the internal carotid arteries with less than 25% narrowing. 3. Question of curved, fingerlike 5 mm projection/aneurysm from the confluence of the vertical left petrous segment and proximal carotid siphon. This was not apparent on the MRA exam, and may be summation artifact 4. The anterior intracranial arterial circulation is otherwise intact. 5. Atretic or occluded distal right vertebral artery. The dominant left vertebral artery shows less than 50% atherosclerotic narrowing, perfusing the patent basilar artery. 6. Mild to moderate tapering of the distal P1 segment of the right posterior cerebral artery. The P2 and visualized distal P3 segments as well as left posterior cerebral artery are patent. Electronically Signed: Jonathan Sotelo MD at 19:33 EST , Service support ,
[2018-05-29] MEDS: 0.9% Normal Saline 1,000 ML 150 ML IV (14:45)
[2018-05-29] MEDS: Budesonide Respules 0.5 MG/2 ML AMPUL.NEB. INHALATION (18:49)
[2018-05-29] MEDS: Atorvastatin Calcium 80 MG Tablet PO (21:34)
[2018-05-30] VITALS (17 sets, daily range): BP systolic 93–139; BP diastolic 53–82; PULSE 64–94; RESP 14–20; TEMP 36.3–37.1; O2SAT 92–98; BMI 26.0
[2018-05-30] MEDS: Albuterol 2.5 MG/3 ML VIAL.NEB. INHALATION (05:06)
[2018-05-30 06:39] LABS: Cholesterol 129 mg/dL (200); High Density Lipoprotein 57 mg/dL; Triglycerides 84 mg/dL; Very Low Density Lipoprotein 17 mg/dL (5-40)
[2018-05-30] MEDS: Ipratropium/Albuterol Sulfate 3 ML AMPUL.NEB INHALATION ×4 (08:05→19:11)
[2018-05-30] MEDS: Budesonide Respules 0.5 MG/2 ML AMPUL.NEB. INHALATION ×2 (08:06→19:11)
[2018-05-30] MEDS: Metoprolol(XL)Succ 25 MG Tablet PO (08:55)
[2018-05-30] MEDS: Clopidogrel Bisulfate 75 MG Tablet PO (08:55)
[2018-05-30] MEDS: Aspirin 81 MG TAB.CHEW 162 MG PO (08:55)
[2018-05-30] MEDS: Enoxaparin 40 MG/0.4 ML Syringe SC (08:58)
[2018-05-30] MEDS: Pantoprazole Sodium 20 MG Tablet PO (08:58)
[2018-05-30] MEDS: Tamsulosin HCl 0.4 MG Capsule PO (08:58)
[2018-05-30] MEDS: Pregabalin 75 MG Capsule 150 MG PO ×2 (08:58→20:46)
--- NOTE | 2018-05-30 09:33 | CASEMGMT ---
SW spoke with patient about going to [facility] 4th floor rehab unit. SW explained his insurance would have to approve him to go. He was in agreement with this plan. JOSÉ spoke with Ingrid and she will start pre-cert request. Plan: [facility] 4th floor rehab unit pending insurance approval. Sandy PALAFOX
[2018-05-30] MEDS: Ascorbic Acid 500 MG Tablet 1000 MG PO (10:25)
[2018-05-30] MEDS: Allopurinol 100 MG Tablet PO (10:25)
--- NOTE | 2018-05-30 11:47 | PCM.PN.NEU ---
Patient Problems: Active and Suspected Problems CVA (cerebral vascular accident) (Acute) Subjective: no new complaints, now feels close to normal - Physical Exam General: Alert, Oriented x3, Cooperative, No apparent distress Neurological: Cranial nerves II-XII grossly intact, Deep Tendon Reflexes 2+/4 and Symmetrical, Neuro grossly intact, Motor Exam 5/5 strength throughout Psych/Mental Status: Alert and oriented to time, place, person, mood and affect Vital Signs Temp Pulse Resp BP Pulse Ox 36.9 C 88 16 133/68 H 96 05/30/18 08:40 05/30/18 11:11 05/30/18 11:11 05/30/18 08:40 05/30/18 08:40 Oxygen Flow Rate (L/min) 2 Oxygen Delivery Method Nasal Cannula Weight: 66.7 kg Body Mass Index (BMI) 26.0 Finger Stick Blood Glucose 96 Intake and Output for Last 24 Hours 05/28/18 05/29/18 05/30/18 23:59 23:59 23:59 Intake Total 994 / 994 488 / 488 Output Total Balance 993 / 993 488 / 488 Laboratory Tests Past 24 Hrs 05/30/18 05:35 Triglycerides 84 Cholesterol 129 LDL Cholesterol 55 VLDL Cholesterol 17 HDL Cholesterol 57 Current Home Med List Medication Instructions Recorded Confirmed Type Albuterol Aerosols [Ventolin 2.5 mg INHALATION Q4H PRN PRN 07/04/16 05/29/18 History Aerosols] Albuterol Inhaler [Ventolin Hfa] 2 puff INHALATION Q6H PRN PRN 07/04/16 05/29/18 History Allopurinol 100 mg PO DAILY 07/04/16 05/29/18 History Ascorbic Acid [Vitamin C] 1,000 mg PO DAILY 07/04/16 05/29/18 History Aspirin [Aspirin, Baby] 162 mg PO DAILY@0800 07/04/16 05/29/18 History Atorvastatin Calcium [Lipitor] 10 mg PO QHS 07/04/16 05/29/18 History Budesonide [Pulmicort] 0.25 mg IH BID 07/04/16 05/29/18 History Cholecalciferol (Vitamin D3) 2,000 unit PO DAILY 07/04/16 05/29/18 History [Vitamin D3] Colchicine 0.6 mg PO BID PRN 07/04/16 05/29/18 History Ipratropium [Atrovent Aerosols] 0.25 mg INHALATION 4X/DAY 07/04/16 05/29/18 History Nitroglycerin 0.4 mg SL PRN PRN 07/04/16 05/29/18 History Omeprazole [Prilosec] 20 mg PO DAILY 07/04/16 05/29/18 History Pregabalin [Lyrica] 150 mg PO BID 07/04/16 05/29/18 History Spironolactone [Aldactone] 12.5 mg PO DAILY 07/04/16 05/29/18 History Tamsulosin HCl [Flomax] 0.4 mg PO DAILY 07/04/16 05/29/18 History traMADol [Ultram] 50 mg PO Q4H PRN PRN 07/04/16 05/29/18 History Alendronate Sodium [Fosamax] 70 mg PO QWEEK 07/15/17 05/29/18 History Baclofen 10 mg PO BID PRN PRN 07/15/17 05/29/18 History Metoprolol Succinate 25 mg PO DAILY 05/29/18 05/29/18 History Current Medications Generic Name Dose Route Start Last Admin Trade Name Freq PRN Reason Stop Dose Admin Acetaminophen 500 mg 05/29/18 10:34 Tylenol PO Q6H PRN PRN PAIN Albuterol Sulfate 2.5 mg 05/29/18 10:15 05/30/18 05:06 Ventolin Aerosols INHALATION 2.5 mg Q2H PRN PRN Administration SHORTNESS OF BREATH Albuterol/Ipratropium 3 ml 05/29/18 10:45 05/30/18 11:10 Duoneb INHALATION 3 ml Q4HWA.RT HALLEY Administration Allopurinol 100 mg 05/30/18 10:00 05/30/18 10:25 Zyloprim PO 100 mg DAILY HALLEY Administration Ascorbic Acid 1,000 mg 05/30/18 10:00 05/30/18 10:25 Vitamin C PO 1,000 mg DAILY HALLEY Administration Aspirin 162 mg 05/30/18 08:00 05/30/18 08:55 Aspirin, Baby PO 162 mg DAILY@0800 HALLEY Administration Atorvastatin Calcium 80 mg 05/29/18 22:00 05/29/18 21:34 Lipitor PO 80 mg QHS HALLEY Administration Budesonide 0.5 mg 05/29/18 11:30 05/30/18 08:06 Pulmicort Aerosol INHALATION 0.5 mg BID.RT HALLEY Administration Cholecalciferol 2,000 unit 05/30/18 10:00 05/30/18 10:25 Vitamin D PO 2,000 unit DAILY HALLEY Administration Clopidogrel Bisulfate 75 mg 05/30/18 10:00 05/30/18 08:55 Plavix PO 75 mg DAILY HALLEY Administration Colchicine 0.6 mg 05/29/18 12:00 Colchicine PO BID PRN PRN GOUT Enoxaparin Sodium 40 mg 05/30/18 10:00 05/30/18 08:58 Lovenox SC 40 mg DAILY@1000 HALLEY Administration Metoprolol Succinate 25 mg 05/30/18 10:00 05/30/18 08:55 Toprol Xl (Beta Diana) PO 25 mg DAILY HALLEY Administration Nitroglycerin 0.4 mg 05/29/18 11:27 Nitrostat SUBLINGUAL Q5M PRN CHEST PAIN Pantoprazole Sodium 20 mg 05/30/18 10:00 05/30/18 08:58 Protonix PO 20 mg DAILY HALLEY Administration Pregabalin 150 mg 05/29/18 22:00 05/30/18 08:58 Lyrica PO 150 mg BID HALLEY Administration Sodium Chloride 5 - 15 ml 05/29/18 12:05 IV UD PRN SALINE FLUSH Tamsulosin HCl 0.4 mg 05/30/18 10:00 05/30/18 08:58 Flomax PO 0.4 mg DAILY HALLEY Administration mri shows acute right posterior mca infarct mra and cta show LEFT ica stenosis 70-80% possible intracranial right ica stenosis but artifact present Medical Necessity - Tobacco Use Smoking Status: Current every day smoker Tobacco Use: Cigarettes Assessment/Plan All Active Problems CVA (cerebral vascular accident) (Acute) Aspiration into airway (Resolved) Sepsis (Ruled-out) right mca infarct, improved, ok to dc if ambulating safely vs rehab asa/plavix/high dose statin outpt event monitor f/u with vasc surgeon, dr vitale as outpt re right ica stenosis left petrosal ica stenosis: medical management
--- NOTE | 2018-05-30 12:07 | PCM.PN.HOSP ---
Patient Problems: Active and Suspected Problems CVA (cerebral vascular accident) (Acute) Subjective: feels his strength is improved on the left. not dropping objects with his left hand as he was yesterday. Vitals/I&O's: Vital Signs Temp Pulse Resp BP Pulse Ox 36.9 C 88 16 133/68 H 96 05/30/18 08:40 05/30/18 11:11 05/30/18 11:11 05/30/18 08:40 05/30/18 08:40 Oxygen Flow Rate (L/min) 2 Oxygen Delivery Method Nasal Cannula Weight: 66.7 kg Body Mass Index (BMI) 26.0 Finger Stick Blood Glucose 96 Intake and Output for Last 24 Hours 05/28/18 05/29/18 05/30/18 23:59 23:59 23:59 Intake Total 994 / 994 728 / 728 Output Total Balance 993 / 993 728 / 728 General: Alert, No apparent distress HEENT: Atraumatic, Normocephalic Oral: Moist Mucosa, No Gingival or Mucosal Lesions/ Ulcerations Neck: No Nodes, Thyroid Normal Size and Texture Lungs: Clear to auscultation, Normal air movement, No rhonchi, No wheeze Cardiovascular: Regular rate, Regular Rhythm, Normal S1, Normal S2, No murmurs Abdomen: Bowel Sounds Present, Soft, Non Tender, Non-Distended, No Hepato-splenomegaly Extremities: No clubbing, No cyanosis, No edema, No Calf Tenderness Skin: No rashes, No breakdown Neurological: Cranial nerves II-XII grossly intact, Motor Exam 5/5 strength throughout Psych/Mental Status: Normal Affect, Appropriate Laboratory Results 05/30/18 05:35: Triglycerides 84, Cholesterol 129, LDL Cholesterol 55, VLDL Cholesterol 17, HDL Cholesterol 57 Current Medications Acetaminophen (Tylenol) 500 mg PO Q6H PRN PRN PRN Reason: PAIN Albuterol Sulfate (Ventolin Aerosols) 2.5 mg INHALATION Q2H PRN PRN PRN Reason: SHORTNESS OF BREATH Last Admin: 05/30/18 05:06 Dose: 2.5 mg Albuterol/Ipratropium (Duoneb) 3 ml INHALATION Q4HWA.RT [facility] Last Admin: 05/30/18 11:10 Dose: 3 ml Allopurinol (Zyloprim) 100 mg PO DAILY [facility] Last Admin: 05/30/18 10:25 Dose: 100 mg Ascorbic Acid (Vitamin C) 1,000 mg PO DAILY [facility] Last Admin: 05/30/18 10:25 Dose: 1,000 mg Aspirin (Aspirin, Baby) 162 mg PO DAILY@0800 [facility] Last Admin: 05/30/18 08:55 Dose: 162 mg Atorvastatin Calcium (Lipitor) 80 mg PO QHS [facility] Last Admin: 05/29/18 21:34 Dose: 80 mg Budesonide (Pulmicort Aerosol) 0.5 mg INHALATION BID.RT [facility] Last Admin: 05/30/18 08:06 Dose: 0.5 mg Cholecalciferol (Vitamin D) 2,000 unit PO DAILY [facility] Last Admin: 05/30/18 10:25 Dose: 2,000 unit Clopidogrel Bisulfate (Plavix) 75 mg PO DAILY [facility] Last Admin: 05/30/18 08:55 Dose: 75 mg Colchicine (Colchicine) 0.6 mg PO BID PRN PRN PRN Reason: GOUT Enoxaparin Sodium (Lovenox) 40 mg SC DAILY@1000 [facility] Last Admin: 05/30/18 08:58 Dose: 40 mg Metoprolol Succinate (Toprol Xl (Beta Diana)) 25 mg PO DAILY [facility] Last Admin: 05/30/18 08:55 Dose: 25 mg Nitroglycerin (Nitrostat) 0.4 mg SUBLINGUAL Q5M PRN PRN Reason: CHEST PAIN Pantoprazole Sodium (Protonix) 20 mg PO DAILY [facility] Last Admin: 05/30/18 08:58 Dose: 20 mg Pregabalin (Lyrica) 150 mg PO BID [facility] Last Admin: 05/30/18 08:58 Dose: 150 mg Sodium Chloride () 5 - 15 ml IV UD PRN PRN Reason: SALINE FLUSH Tamsulosin HCl (Flomax) 0.4 mg PO DAILY [facility] Last Admin: 05/30/18 08:58 Dose: 0.4 mg Medical Necessity - Tobacco Use Smoking Status: Current every day smoker Tobacco Use: Cigarettes Assessment/Plan All Active Problems CVA (cerebral vascular accident) (Acute) Aspiration into airway (Resolved) Sepsis (Ruled-out) 1. Acute Right MCA CVA Time of onset is unknown patient was normal at night Patient is outside the window for TPA Symptoms much improved. Patient seen by neurology, who recommends aspirin, statin and clopidogrel DW Dr. Mcgregor, no additional work up necessary 2. Paroxysmal atrial fibrillation Continue with aspirin Plavix for now Event monitor as outpt Has been taken off anticoagulation in the past due to being in normal sinus rhythm 3. COPD Stable Continue with breathing treatments 4. Carotid stenosis The LICA was non-contributory to his current CVA. This will need evaluated as outpt with his vascular surgeon. The KATIE stenoses are intracranial and not amenable to intervention and are to be treated medically, per Dr. Mcgregor. 5. DVT proph: LMWH 6. Disposition: to Rehab pending precertification. Code Visit Inpatient E&M: 96636 [facility] Hosp L3
--- NOTE | 2018-05-30 12:12 | PN_ITS ---
Patient Problems: Active and Suspected Problems CVA (cerebral vascular accident) (Acute) Subjective: feels his strength is improved on the left. not dropping objects with his left hand as he was yesterday. Vitals/I&O's: Vital Signs Temp Pulse Resp BP Pulse Ox 36.9 C 88 16 133/68 H 96 05/30/18 08:40 05/30/18 11:11 05/30/18 11:11 05/30/18 08:40 05/30/18 08:40 Oxygen Flow Rate (L/min) 2 Oxygen Delivery Method Nasal Cannula Weight: 66.7 kg Body Mass Index (BMI) 26.0 Finger Stick Blood Glucose 96 Intake and Output for Last 24 Hours 05/28/18 05/29/18 05/30/18 23:59 23:59 23:59 Intake Total 994 / 994 728 / 728 Output Total Balance 993 / 993 728 / 728 General: Alert, No apparent distress HEENT: Atraumatic, Normocephalic Oral: Moist Mucosa, No Gingival or Mucosal Lesions/ Ulcerations Neck: No Nodes, Thyroid Normal Size and Texture Lungs: Clear to auscultation, Normal air movement, No rhonchi, No wheeze Cardiovascular: Regular rate, Regular Rhythm, Normal S1, Normal S2, No murmurs Abdomen: Bowel Sounds Present, Soft, Non Tender, Non-Distended, No Hepato- splenomegaly Extremities: No clubbing, No cyanosis, No edema, No Calf Tenderness Skin: No rashes, No breakdown Neurological: Cranial nerves II-XII grossly intact, Motor Exam 5/5 strength throughout Psych/Mental Status: Normal Affect, Appropriate Laboratory Results 05/30/18 05:35: Triglycerides 84, Cholesterol 129, LDL Cholesterol 55, VLDL Cholesterol 17, HDL Cholesterol 57 Current Medications Acetaminophen (Tylenol) 500 mg PO Q6H PRN PRN PRN Reason: PAIN Albuterol Sulfate (Ventolin Aerosols) 2.5 mg INHALATION Q2H PRN PRN PRN Reason: SHORTNESS OF BREATH Last Admin: 05/30/18 05:06 Dose: 2.5 mg Albuterol/Ipratropium (Duoneb) 3 ml INHALATION Q4HWA.RT [facility] Last Admin: 05/30/18 11:10 Dose: 3 ml Allopurinol (Zyloprim) 100 mg PO DAILY [facility] Last Admin: 05/30/18 10:25 Dose: 100 mg Ascorbic Acid (Vitamin C) 1,000 mg PO DAILY [facility] Last Admin: 05/30/18 10:25 Dose: 1,000 mg Aspirin (Aspirin, Baby) 162 mg PO DAILY@0800 [facility] Last Admin: 05/30/18 08:55 Dose: 162 mg Atorvastatin Calcium (Lipitor) 80 mg PO QHS [facility] Last Admin: 05/29/18 21:34 Dose: 80 mg Budesonide (Pulmicort Aerosol) 0.5 mg INHALATION BID.RT [facility] Last Admin: 05/30/18 08:06 Dose: 0.5 mg Cholecalciferol (Vitamin D) 2,000 unit PO DAILY [facility] Last Admin: 05/30/18 10:25 Dose: 2,000 unit Clopidogrel Bisulfate (Plavix) 75 mg PO DAILY [facility] Last Admin: 05/30/18 08:55 Dose: 75 mg Colchicine (Colchicine) 0.6 mg PO BID PRN PRN PRN Reason: GOUT Enoxaparin Sodium (Lovenox) 40 mg SC DAILY@1000 [facility] Last Admin: 05/30/18 08:58 Dose: 40 mg Metoprolol Succinate (Toprol Xl (Beta Diana)) 25 mg PO DAILY [facility] Last Admin: 05/30/18 08:55 Dose: 25 mg Nitroglycerin (Nitrostat) 0.4 mg SUBLINGUAL Q5M PRN PRN Reason: CHEST PAIN Pantoprazole Sodium (Protonix) 20 mg PO DAILY [facility] Last Admin: 05/30/18 08:58 Dose: 20 mg Pregabalin (Lyrica) 150 mg PO BID [facility] Last Admin: 05/30/18 08:58 Dose: 150 mg Sodium Chloride () 5 - 15 ml IV UD PRN PRN Reason: SALINE FLUSH Tamsulosin HCl (Flomax) 0.4 mg PO DAILY [facility] Last Admin: 05/30/18 08:58 Dose: 0.4 mg Medical Necessity - Tobacco Use Smoking Status: Current every day smoker Tobacco Use: Cigarettes Assessment/Plan All Active Problems CVA (cerebral vascular accident) (Acute) Aspiration into airway (Resolved) Sepsis (Ruled-out) 1. Acute Right MCA CVA Time of onset is unknown patient was normal at night Patient is outside the window for TPA Symptoms much improved. Patient seen by neurology, who recommends aspirin, statin and clopidogrel DW Dr. Mcgregor, no additional work up necessary 2. Paroxysmal atrial fibrillation Continue with aspirin Plavix for now Event monitor as outpt Has been taken off anticoagulation in the past due to being in normal sinus rhythm 3. COPD Stable Continue with breathing treatments 4. Carotid stenosis The LICA was non-contributory to his current CVA. This will need evaluated as outpt with his vascular surgeon. The KATIE stenoses are intracranial and not amenable to intervention and are to be treated medically, per Dr. Mcgregor. 5. DVT proph: LMWH 6. Disposition: to Rehab pending precertification. Code Visit Inpatient E&M: 76631 [facility] Hosp L3
[2018-05-30] MEDS: Atorvastatin Calcium 80 MG Tablet PO (20:46)
--- NOTE | 2018-05-30 20:47 | NURSING ---
Pt resquesting meds now so he can sleep.
[2018-05-31] VITALS (13 sets, daily range): BP systolic 106–122; BP diastolic 43–67; PULSE 68–104; RESP 16–21; TEMP 36.5–37; O2SAT 93–98
[2018-05-31] MEDS: Ipratropium/Albuterol Sulfate 3 ML AMPUL.NEB INHALATION ×4 (02:55→14:38)
[2018-05-31] MEDS: Budesonide Respules 0.5 MG/2 ML AMPUL.NEB. INHALATION (07:30)
[2018-05-31] MEDS: Aspirin 81 MG TAB.CHEW PO (07:53)
[2018-05-31] MEDS: Pregabalin 75 MG Capsule 150 MG PO (09:49)
[2018-05-31] MEDS: Enoxaparin 40 MG/0.4 ML Syringe SC (09:49)
[2018-05-31] MEDS: Tamsulosin HCl 0.4 MG Capsule PO (09:50)
[2018-05-31] MEDS: Clopidogrel Bisulfate 75 MG Tablet PO (09:50)
[2018-05-31] MEDS: Allopurinol 100 MG Tablet PO (09:51)
[2018-05-31] MEDS: Ascorbic Acid 500 MG Tablet 1000 MG PO (09:51)
[2018-05-31] MEDS: Metoprolol(XL)Succ 25 MG Tablet PO (09:51)
[2018-05-31] MEDS: Pantoprazole Sodium 20 MG Tablet PO (09:57)
--- NOTE | 2018-05-31 10:14 | PCM.PN.HOSP ---
Patient Problems: Active and Suspected Problems CVA (cerebral vascular accident) (Acute) Subjective: Improved dexterity of LUE. Vitals/I&O's: Vital Signs Temp Pulse Resp BP Pulse Ox 37.0 C 78 18 122/67 H 96 05/31/18 09:10 05/31/18 09:51 05/31/18 09:10 05/31/18 09:10 05/31/18 09:10 Oxygen Flow Rate (L/min) 2 Oxygen Delivery Method Nasal Cannula Weight: 66.7 kg Body Mass Index (BMI) 26.0 Finger Stick Blood Glucose 96 Intake and Output for Last 24 Hours 05/29/18 05/30/18 05/31/18 23:59 23:59 23:59 Intake Total 994 / 994 1028 / 1028 240 / 240 Output Total Balance 993 / 993 1028 / 1028 240 / 240 General: Alert, No apparent distress HEENT: Atraumatic, Normocephalic Oral: Moist Mucosa, No Gingival or Mucosal Lesions/ Ulcerations Neck: No Nodes, Thyroid Normal Size and Texture Lungs: Clear to auscultation, Normal air movement, No rhonchi, No wheeze Cardiovascular: Regular rate, Regular Rhythm, Normal S1, Normal S2, No murmurs Abdomen: Bowel Sounds Present, Soft, Non Tender, Non-Distended, No Hepato-splenomegaly Extremities: No edema, No Calf Tenderness Skin: No rashes, No breakdown Neurological: Motor Exam 5/5 strength throughout, Coordination normal Psych/Mental Status: Normal Affect, Appropriate Current Medications Acetaminophen (Tylenol) 500 mg PO Q6H PRN PRN PRN Reason: PAIN Albuterol Sulfate (Ventolin Aerosols) 2.5 mg INHALATION Q2H PRN PRN PRN Reason: SHORTNESS OF BREATH Last Admin: 05/30/18 05:06 Dose: 2.5 mg Albuterol/Ipratropium (Duoneb) 3 ml INHALATION Q4HWA.RT [facility] BEDS AT [facility] Last Admin: 05/31/18 07:30 Dose: 3 ml Allopurinol (Zyloprim) 100 mg PO DAILY [facility] 234 [facility]S [facility] Last Admin: 05/31/18 09:51 Dose: 100 mg Ascorbic Acid (Vitamin C) 1,000 mg PO DAILY [facility] 234 [facility]S [facility] Last Admin: 05/31/18 09:51 Dose: 1,000 mg Aspirin (Aspirin, Baby) 81 mg PO DAILY@0800 [facility] 234 [facility]S [facility] Last Admin: 05/31/18 07:53 Dose: 81 mg Atorvastatin Calcium (Lipitor) 80 mg PO QHS [facility] 234 BEDS AT [facility] Last Admin: 05/30/18 20:46 Dose: 80 mg Budesonide (Pulmicort Aerosol) 0.5 mg INHALATION BID.RT [facility] 234 BEDS AT [facility] Last Admin: 05/31/18 07:30 Dose: 0.5 mg Cholecalciferol (Vitamin D) 2,000 unit PO DAILY [facility] 234 B[facility]S [facility] Last Admin: 05/31/18 09:50 Dose: 2,000 unit Clopidogrel Bisulfate (Plavix) 75 mg PO DAILY [facility] 234 [facility] Last Admin: 05/31/18 09:50 Dose: 75 mg Colchicine (Colchicine) 0.6 mg PO BID PRN PRN PRN Reason: GOUT Enoxaparin Sodium (Lovenox) 40 mg SC DAILY@1000 [facility] 234 B[facility]S [facility] Last Admin: 05/31/18 09:49 Dose: 40 mg Metoprolol Succinate (Toprol Xl (Beta Diana)) 25 mg PO DAILY [facility] 234 B[facility]S [facility] Last Admin: 05/31/18 09:51 Dose: 25 mg Nitroglycerin (Nitrostat) 0.4 mg SUBLINGUAL Q5M PRN PRN Reason: CHEST PAIN Pantoprazole Sodium (Protonix) 20 mg PO DAILY [facility] 234 [facility]S [facility] Last Admin: 05/31/18 09:57 Dose: 20 mg Pregabalin (Lyrica) 150 mg PO BID [facility] 234 [facility]S [facility] Last Admin: 05/31/18 09:49 Dose: 150 mg Sodium Chloride () 5 - 15 ml IV UD PRN PRN Reason: SALINE FLUSH Tamsulosin HCl (Flomax) 0.4 mg PO DAILY [facility] 234 [facility]S [facility] Last Admin: 05/31/18 09:50 Dose: 0.4 mg Medical Necessity - Tobacco Use Smoking Status: Current every day smoker Tobacco Use: Cigarettes Assessment/Plan All Active Problems CVA (cerebral vascular accident) (Acute) Aspiration into airway (Resolved) Sepsis (Ruled-out) 1. Acute Right MCA CVA Time of onset is unknown patient was normal at night Patient is outside the window for TPA Symptoms much improved. Patient seen by neurology, who recommends aspirin, statin and clopidogrel DW Dr. Mcgregor, no additional work up necessary 2. Paroxysmal atrial fibrillation Continue with aspirin Plavix for now Event monitor as outpt Has been taken off anticoagulation in the past due to being in normal sinus rhythm, which he is still in. 3. COPD Stable Continue with breathing treatments 4. Carotid stenosis The LICA was non-contributory to his current CVA. This will need evaluated as outpt with his vascular surgeon. The KATIE stenoses are intracranial and not amenable to intervention and are to be treated medically, per Dr. Mcgregor. 5. DVT proph: LMWH 6. Disposition: to Rehab pending precertification. Per CM, possibly today. Code Visit Inpatient E&M: 62363 [facility] Hosp L2
--- NOTE | 2018-05-31 10:17 | PN_ITS ---
Patient Problems: Active and Suspected Problems CVA (cerebral vascular accident) (Acute) Subjective: Improved dexterity of LUE. Vitals/I&O's: Vital Signs Temp Pulse Resp BP Pulse Ox 37.0 C 78 18 122/67 H 96 05/31/18 09:10 05/31/18 09:51 05/31/18 09:10 05/31/18 09:10 05/31/18 09:10 Oxygen Flow Rate (L/min) 2 Oxygen Delivery Method Nasal Cannula Weight: 66.7 kg Body Mass Index (BMI) 26.0 Finger Stick Blood Glucose 96 Intake and Output for Last 24 Hours 05/29/18 05/30/18 05/31/18 23:59 23:59 23:59 Intake Total 994 / 994 1028 / 1028 240 / 240 Output Total Balance 993 / 993 1028 / 1028 240 / 240 General: Alert, No apparent distress HEENT: Atraumatic, Normocephalic Oral: Moist Mucosa, No Gingival or Mucosal Lesions/ Ulcerations Neck: No Nodes, Thyroid Normal Size and Texture Lungs: Clear to auscultation, Normal air movement, No rhonchi, No wheeze Cardiovascular: Regular rate, Regular Rhythm, Normal S1, Normal S2, No murmurs Abdomen: Bowel Sounds Present, Soft, Non Tender, Non-Distended, No Hepato- splenomegaly Extremities: No edema, No Calf Tenderness Skin: No rashes, No breakdown Neurological: Motor Exam 5/5 strength throughout, Coordination normal Psych/Mental Status: Normal Affect, Appropriate Current Medications Acetaminophen (Tylenol) 500 mg PO Q6H PRN PRN PRN Reason: PAIN Albuterol Sulfate (Ventolin Aerosols) 2.5 mg INHALATION Q2H PRN PRN PRN Reason: SHORTNESS OF BREATH Last Admin: 05/30/18 05:06 Dose: 2.5 mg Albuterol/Ipratropium (Duoneb) 3 ml INHALATION Q4HWA.RT [facility] Last Admin: 05/31/18 07:30 Dose: 3 ml Allopurinol (Zyloprim) 100 mg PO DAILY [facility] Last Admin: 05/31/18 09:51 Dose: 100 mg Ascorbic Acid (Vitamin C) 1,000 mg PO DAILY [facility] Last Admin: 05/31/18 09:51 Dose: 1,000 mg Aspirin (Aspirin, Baby) 81 mg PO DAILY@0800 [facility] Last Admin: 05/31/18 07:53 Dose: 81 mg Atorvastatin Calcium (Lipitor) 80 mg PO QHS [facility] Last Admin: 05/30/18 20:46 Dose: 80 mg Budesonide (Pulmicort Aerosol) 0.5 mg INHALATION BID.RT [facility] Last Admin: 05/31/18 07:30 Dose: 0.5 mg Cholecalciferol (Vitamin D) 2,000 unit PO DAILY [facility] Last Admin: 05/31/18 09:50 Dose: 2,000 unit Clopidogrel Bisulfate (Plavix) 75 mg PO DAILY [facility] Last Admin: 05/31/18 09:50 Dose: 75 mg Colchicine (Colchicine) 0.6 mg PO BID PRN PRN PRN Reason: GOUT Enoxaparin Sodium (Lovenox) 40 mg SC DAILY@1000 [facility] Last Admin: 05/31/18 09:49 Dose: 40 mg Metoprolol Succinate (Toprol Xl (Beta Diana)) 25 mg PO DAILY [facility] Last Admin: 05/31/18 09:51 Dose: 25 mg Nitroglycerin (Nitrostat) 0.4 mg SUBLINGUAL Q5M PRN PRN Reason: CHEST PAIN Pantoprazole Sodium (Protonix) 20 mg PO DAILY [facility] Last Admin: 05/31/18 09:57 Dose: 20 mg Pregabalin (Lyrica) 150 mg PO BID [facility] Last Admin: 05/31/18 09:49 Dose: 150 mg Sodium Chloride () 5 - 15 ml IV UD PRN PRN Reason: SALINE FLUSH Tamsulosin HCl (Flomax) 0.4 mg PO DAILY [facility] Last Admin: 05/31/18 09:50 Dose: 0.4 mg Medical Necessity - Tobacco Use Smoking Status: Current every day smoker Tobacco Use: Cigarettes Assessment/Plan All Active Problems CVA (cerebral vascular accident) (Acute) Aspiration into airway (Resolved) Sepsis (Ruled-out) 1. Acute Right MCA CVA Time of onset is unknown patient was normal at night Patient is outside the window for TPA Symptoms much improved. Patient seen by neurology, who recommends aspirin, statin and clopidogrel DW Dr. Mcgregor, no additional work up necessary 2. Paroxysmal atrial fibrillation Continue with aspirin Plavix for now Event monitor as outpt Has been taken off anticoagulation in the past due to being in normal sinus rhythm, which he is still in. 3. COPD Stable Continue with breathing treatments 4. Carotid stenosis The LICA was non-contributory to his current CVA. This will need evaluated as outpt with his vascular surgeon. The KATIE stenoses are intracranial and not amenable to intervention and are to be treated medically, per Dr. Mcgregor. 5. DVT proph: LMWH 6. Disposition: to Rehab pending precertification. Per CM, possibly today. Code Visit Inpatient E&M: 19404 Subs Hosp L2
--- NOTE | 2018-05-31 10:22 | DCINST_ITS ---
- Discharge Diagnoses Current Active Problems: Current Active and Chronic Problems CVA (cerebral vascular accident) (Acute) You will use the following diet at home:: Cardiac Your food should be the consistency of: Regular Your liquids should be the consistency of: Regular/Thin Call your doctor if you observe: Numbness or Tingling, - - unilateral weakness. Allergies/Adverse Reactions: Allergies No Known Allergies Allergy (Verified 05/29/18 07:20) Medications to take at Discharge Albuterol Aerosols [Ventolin Aerosols] 2.5 mg INHALATION Q4H PRN PRN 07/04/16 Albuterol Inhaler [Ventolin Hfa] 2 puff INHALATION Q6H PRN PRN 07/04/16 Allopurinol 100 mg PO DAILY 07/04/16 Ascorbic Acid [Vitamin C] 1,000 mg PO DAILY 07/04/16 Aspirin [Aspirin, Baby] 162 mg PO DAILY@0800 07/04/16 Budesonide [Pulmicort] 0.25 mg IH BID 07/04/16 Cholecalciferol (Vitamin D3) [Vitamin D3] 2,000 unit PO DAILY 07/04/16 Colchicine 0.6 mg PO BID PRN 07/04/16 Ipratropium [Atrovent Aerosols] 0.25 mg INHALATION 4X/DAY 07/04/16 Nitroglycerin 0.4 mg SL PRN PRN 07/04/16 Omeprazole [Prilosec] 20 mg PO DAILY 07/04/16 Pregabalin [Lyrica] 150 mg PO BID 07/04/16 Spironolactone [Aldactone] 12.5 mg PO DAILY 07/04/16 Tamsulosin HCl [Flomax] 0.4 mg PO DAILY 07/04/16 traMADol [Ultram] 50 mg PO Q4H PRN PRN 07/04/16 Alendronate Sodium [Fosamax] 70 mg PO QWEEK 07/15/17 Baclofen 10 mg PO BID PRN PRN 07/15/17 Metoprolol Succinate 25 mg PO DAILY 05/29/18 Acetaminophen [Tylenol] 500 mg PO Q6H PRN PRN tablet 05/31/18 Atorvastatin Calcium [Lipitor] 80 mg PO QHS tablet 05/31/18 Clopidogrel Bisulfate [Plavix] 75 mg PO DAILY tablet 05/31/18 Primary Care Physician: Neto Ku MD [Primary Care Provider] - Within 2 Weeks Test Results: Test results from this visit will be discussed in further detail at your follow- up appointment, if applicable. Please Follow Up With: Nick Mcgregor MD When: 1-2 months Please Follow Up With: Vascular Surgery - carotid stenosis. When: 1-2 months Proposed Discharge Date: 05/31/18
--- NOTE | 2018-05-31 10:22 | PCM.DC.SUM ---
Discharge Date and Diagnosis - Problem List Patient Problems: Active and Suspected Problems CVA (cerebral vascular accident) (Acute) Date of Admission: 05/29/18 Date of Discharge: 05/31/18 - Primary Discharge Diagnosis Active and Suspected Problems CVA (cerebral vascular accident) (Acute) - Secondary Discharge Diagnosis Chronic Problems Benign prostatic hypertrophy (Chronic) Hypertension (Chronic) Stage 3 chronic kidney disease (Chronic) Chronic respiratory failure (Chronic) COPD (chronic obstructive pulmonary disease) (Chronic) Paroxysmal atrial fibrillation (Chronic) DDD (degenerative disc disease) (Chronic) CAD (coronary artery disease) (Chronic) Hx of CABG (Chronic) Myoclonic jerking (Chronic) Hospital Course and Treatment Imaging Results: Clinical Impression(s) from Imaging Studies Brain CT 05/29/18 07:18 IMPRESSION: Atherosclerotic calcifications of the vertebral and cavernous carotid arteries. No demonstrated acute intracranial process. N.B. : The above information has been verbally conveyed by Ricardo Zapata MD to Dr Gareth MD, on 05/29/2018 07:44:44 (ET). Electronically Signed: Ricardo Zapata MD at 7:37 EST , Service support , Chest X-Ray 05/29/18 08:02 IMPRESSION: Increased markings at the right lung base suggestive of right basilar atelectasis. Electronically Signed: Navin Matt MD at 8:27 EST Tel [phone], Service support , Brain MRI 05/29/18 10:07 IMPRESSION: Acute right MCA infarctions. N.B. : The above information has been verbally conveyed by Vanessa Dillard MD to Madeleine Jean-Baptiste NP, on 05/29/2018 13:58:04 (ET). Electronically Signed: Vanessa Dillard MD at 13:49 EST Tel , Service support , Head MRA 05/29/18 10:07 IMPRESSION: Greater than 75% stenosis of the right cavernous carotid artery. Further evaluation with CTA can be obtained. Electronically Signed: Vanessa Dillard MD at 13:51 EST Tel , Service support , Neck MRA 05/29/18 10:08 IMPRESSION: High-grade stenosis of the left common and internal carotid artery. Further evaluation with CTA is recommended. Electronically Signed: Vanessa Dillard MD at 13:55 EST Tel , Service support , Head CTA 05/29/18 14:11 IMPRESSION: 1. Atherosclerotic calcifications of the vertical petrous segments of the internal carotid arteries with greater than 70% stenosis on the right and approximately 50% narrowing on the left. 2. Additional calcific plaquing in the cavernous siphons of the internal carotid arteries with less than 25% narrowing. 3. Question of curved, fingerlike 5 mm projection/aneurysm from the confluence of the vertical left petrous segment and proximal carotid siphon. This was not apparent on the MRA exam, and may be summation artifact 4. The anterior intracranial arterial circulation is otherwise intact. 5. Atretic or occluded distal right vertebral artery. The dominant left vertebral artery shows less than 50% atherosclerotic narrowing, perfusing the patent basilar artery. 6. Mild to moderate tapering of the distal P1 segment of the right posterior cerebral artery. The P2 and visualized distal P3 segments as well as left posterior cerebral artery are patent. Electronically Signed: Jonathan Sotelo MD at 19:33 EST , Service support , Neck CTA 05/29/18 14:11 IMPRESSION: 1. Extensive calcific atherosclerotic plaque in the left carotid artery bifurcation with greater than 70% narrowing of the distal common carotid artery and greater than 70% ostial stenosis of the internal carotid artery. 2. Atherosclerotic calcification at the right carotid artery bifurcation without significant internal carotid artery stenosis. 3. Moderate atherosclerotic stenoses at the ostia of both right left vertebral arteries. The right vertebral artery is diminutive in caliber, while the dominant left vertebral artery is approximately 4.5 mm diameter. Electronically Signed: Jonathan Sotelo MD at 19:28 EST , Service support , Nick Mcgregor MD: neurology. Operations: None Procedures: None Summary of Care Provided: The patient is a 67 year old M presents with a left upper extremity weakness and slurred speech. Patient underwent a workup that showed a right MCA stroke. Head CTA showed a 70% stenosis of the right internal carotid at the petrous segments. No segment stenosis more proximally, however. Discussed with neurology and given that they are intracranial and not amenable to intervention. Patient did have, however left proximal internal carotid stenosis. This stenosis was noncontributory to his acute stroke as it was on the contralateral side. Patient can follow-up with vascular surgery for evaluation of the at a later point. Patient's symptoms have essentially resolved though he still does have some fine motor dexterity issues with his left upper extremity but that is overall improved. Patient will benefit from an outpatient event monitor to evaluate for any arrhythmia. Patient does have a history of paroxysmal atrial fibrillation but has been normal sinus here. Previously, the patient was taken off anticoagulation given him being in normal sinus rhythm. TPA not given, as the time of onset was not in and then woke with the symptoms. [] Patient Problems: Active and Suspected Problems CVA (cerebral vascular accident) (Acute) - Physical Exam Vital Signs Temp Pulse Resp BP Pulse Ox 37.0 C 78 18 122/67 H 96 05/31/18 09:10 05/31/18 09:51 05/31/18 09:10 05/31/18 09:10 05/31/18 09:10 Oxygen Flow Rate (L/min) 2 Oxygen Delivery Method Nasal Cannula Weight: 66.7 kg Body Mass Index (BMI) 26.0 Finger Stick Blood Glucose 96 Intake and Output for Last 24 Hours 05/29/18 05/30/18 05/31/18 23:59 23:59 23:59 Intake Total 994 / 994 1028 / 1028 240 / 240 Output Total Balance 993 / 993 1028 / 1028 240 / 240 Discharge Diet: Low fat/ Low Cholesterol Discharge Activity: Return to Normal Activity Call your doctor if you observe: Numbness or Tingling, - - unilateral weakness. Home Medications: Medications to take at Discharge Albuterol Aerosols [Ventolin Aerosols] 2.5 mg INHALATION Q4H PRN PRN 07/04/16 Albuterol Inhaler [Ventolin Hfa] 2 puff INHALATION Q6H PRN PRN 07/04/16 Allopurinol 100 mg PO DAILY 07/04/16 Ascorbic Acid [Vitamin C] 1,000 mg PO DAILY 07/04/16 Aspirin [Aspirin, Baby] 162 mg PO DAILY@0800 07/04/16 Budesonide [Pulmicort] 0.25 mg IH BID 07/04/16 Cholecalciferol (Vitamin D3) [Vitamin D3] 2,000 unit PO DAILY 07/04/16 Colchicine 0.6 mg PO BID PRN 07/04/16 Ipratropium [Atrovent Aerosols] 0.25 mg INHALATION 4X/DAY 07/04/16 Nitroglycerin 0.4 mg SL PRN PRN 07/04/16 Omeprazole [Prilosec] 20 mg PO DAILY 07/04/16 Pregabalin [Lyrica] 150 mg PO BID 07/04/16 Spironolactone [Aldactone] 12.5 mg PO DAILY 07/04/16 Tamsulosin HCl [Flomax] 0.4 mg PO DAILY 07/04/16 traMADol [Ultram] 50 mg PO Q4H PRN PRN 07/04/16 Alendronate Sodium [Fosamax] 70 mg PO QWEEK 07/15/17 Baclofen 10 mg PO BID PRN PRN 07/15/17 Metoprolol Succinate 25 mg PO DAILY 05/29/18 Acetaminophen [Tylenol] 500 mg PO Q6H PRN PRN tablet 05/31/18 Atorvastatin Calcium [Lipitor] 80 mg PO QHS tablet 05/31/18 Clopidogrel Bisulfate [Plavix] 75 mg PO DAILY tablet 05/31/18 Primary Care Physician: Neto Ku MD [Primary Care Provider] - Within 2 Weeks Please Follow Up With: Nick Mcgregor MD When: 1-2 months Please Follow Up With: Vascular Surgery - carotid stenosis. When: 1-2 months Disposition: Inpt Rehab Unit/Facility Minutes spent on discharge:: 35 Patient Condition:: Good Medical Necessity - Tobacco Use Smoking Status: Current every day smoker Tobacco Use: Cigarettes Meaningful Use Info Meaningful Use Diagnoses (Choose all that apply): Ischemic CVA - CVA Therapy Assessed for PT,OT and/or ST?: Yes - Ischemic Stroke Antithrombotic order at d/c?: Yes Dx of Atrial fib/flutter?: No Statins at discharge?: Yes Primary Dx Acute Ischemic CVA?: Yes IV tPA ordered during stay?: No Reason IV t-PA not ordered: Procedure not Indicated Code Visit Inpatient E&M: 52531 Disch Hosp
--- NOTE | 2018-05-31 10:26 | DS.PCM_ITS ---
Discharge Date and Diagnosis - Problem List Patient Problems: Active and Suspected Problems CVA (cerebral vascular accident) (Acute) Date of Admission: 05/29/18 Date of Discharge: 05/31/18 - Primary Discharge Diagnosis Active and Suspected Problems CVA (cerebral vascular accident) (Acute) - Secondary Discharge Diagnosis Chronic Problems Benign prostatic hypertrophy (Chronic) Hypertension (Chronic) Stage 3 chronic kidney disease (Chronic) Chronic respiratory failure (Chronic) COPD (chronic obstructive pulmonary disease) (Chronic) Paroxysmal atrial fibrillation (Chronic) DDD (degenerative disc disease) (Chronic) CAD (coronary artery disease) (Chronic) Hx of CABG (Chronic) Myoclonic jerking (Chronic) Hospital Course and Treatment Imaging Results: Clinical Impression(s) from Imaging Studies Brain CT 05/29/18 07:18 IMPRESSION: Atherosclerotic calcifications of the vertebral and cavernous carotid arteries. No demonstrated acute intracranial process. N.B. : The above information has been verbally conveyed by Ricardo Zapata MD to Dr Gareth MD, on 05/29/2018 07:44:44 (ET). Electronically Signed: Ricardo Zapata MD at 7:37 EST , Service support , Chest X-Ray 05/29/18 08:02 IMPRESSION: Increased markings at the right lung base suggestive of right basilar atelectasis. Electronically Signed: Navin Matt MD at 8:27 EST Tel [phone], Service support , Brain MRI 05/29/18 10:07 IMPRESSION: Acute right MCA infarctions. N.B. : The above information has been verbally conveyed by Vanessa Dillard MD to Madeleine Jean-Baptiste NP, on 05/29/2018 13:58:04 (ET). Electronically Signed: Vanessa Dillard MD at 13:49 EST Tel , Service support , Head MRA 05/29/18 10:07 IMPRESSION: Greater than 75% stenosis of the right cavernous carotid artery. Further evaluation with CTA can be obtained. Electronically Signed: Vanessa Dillard MD at 13:51 EST Tel , Service support , Neck MRA 05/29/18 10:08 IMPRESSION: High-grade stenosis of the left common and internal carotid artery. Further evaluation with CTA is recommended. Electronically Signed: Vanessa Dillard MD at 13:55 EST Tel , Service support , Head CTA 05/29/18 14:11 IMPRESSION: 1. Atherosclerotic calcifications of the vertical petrous segments of the internal carotid arteries with greater than 70% stenosis on the right and approximately 50% narrowing on the left. 2. Additional calcific plaquing in the cavernous siphons of the internal carotid arteries with less than 25% narrowing. 3. Question of curved, fingerlike 5 mm projection/aneurysm from the confluence of the vertical left petrous segment and proximal carotid siphon. This was not apparent on the MRA exam, and may be summation artifact 4. The anterior intracranial arterial circulation is otherwise intact. 5. Atretic or occluded distal right vertebral artery. The dominant left vertebral artery shows less than 50% atherosclerotic narrowing, perfusing the patent basilar artery. 6. Mild to moderate tapering of the distal P1 segment of the right posterior cerebral artery. The P2 and visualized distal P3 segments as well as left posterior cerebral artery are patent. Electronically Signed: Jonathan Sotelo MD at 19:33 EST , Service support , Neck CTA 05/29/18 14:11 IMPRESSION: 1. Extensive calcific atherosclerotic plaque in the left carotid artery bifurcation with greater than 70% narrowing of the distal common carotid artery and greater than 70% ostial stenosis of the internal carotid artery. 2. Atherosclerotic calcification at the right carotid artery bifurcation without significant internal carotid artery stenosis. 3. Moderate atherosclerotic stenoses at the ostia of both right left vertebral arteries. The right vertebral artery is diminutive in caliber, while the dominant left vertebral artery is approximately 4.5 mm diameter. Electronically Signed: Jonathan Sotelo MD at 19:28 EST , Service support , Nick Mcgregor MD: neurology. Operations: None Procedures: None Summary of Care Provided: The patient is a 67 year old M presents with a left upper extremity weakness and slurred speech. Patient underwent a workup that showed a right MCA stroke. Head CTA showed a 70% stenosis of the right internal carotid at the petrous segments. No segment stenosis more proximally, however. Discussed with neurology and given that they are intracranial and not amenable to intervention. Patient did have, however left proximal internal carotid stenosis. This stenosis was noncontributory to his acute stroke as it was on the contralateral side. Patient can follow-up with vascular surgery for evaluation of the at a later point. Patient's symptoms have essentially resolved though he still does have some fine motor dexterity issues with his left upper extremity but that is overall improved. Patient will benefit from an outpatient event monitor to evaluate for any arrhythmia. Patient does have a history of paroxysmal atrial fibrillation but has been normal sinus here. Previously, the patient was taken off anticoagulation given him being in normal sinus rhythm. TPA not given, as the time of onset was not in and then woke with the symptoms. [] Patient Problems: Active and Suspected Problems CVA (cerebral vascular accident) (Acute) - Physical Exam Vital Signs Temp Pulse Resp BP Pulse Ox 37.0 C 78 18 122/67 H 96 05/31/18 09:10 05/31/18 09:51 05/31/18 09:10 05/31/18 09:10 05/31/18 09:10 Oxygen Flow Rate (L/min) 2 Oxygen Delivery Method Nasal Cannula Weight: 66.7 kg Body Mass Index (BMI) 26.0 Finger Stick Blood Glucose 96 Intake and Output for Last 24 Hours 05/29/18 05/30/18 05/31/18 23:59 23:59 23:59 Intake Total 994 / 994 1028 / 1028 240 / 240 Output Total Balance 993 / 993 1028 / 1028 240 / 240 Discharge Diet: Low fat/ Low Cholesterol Discharge Activity: Return to Normal Activity Call your doctor if you observe: Numbness or Tingling, - - unilateral weakness. Home Medications: Medications to take at Discharge Albuterol Aerosols [Ventolin Aerosols] 2.5 mg INHALATION Q4H PRN PRN 07/04/16 Albuterol Inhaler [Ventolin Hfa] 2 puff INHALATION Q6H PRN PRN 07/04/16 Allopurinol 100 mg PO DAILY 07/04/16 Ascorbic Acid [Vitamin C] 1,000 mg PO DAILY 07/04/16 Aspirin [Aspirin, Baby] 162 mg PO DAILY@0800 07/04/16 Budesonide [Pulmicort] 0.25 mg IH BID 07/04/16 Cholecalciferol (Vitamin D3) [Vitamin D3] 2,000 unit PO DAILY 07/04/16 Colchicine 0.6 mg PO BID PRN 07/04/16 Ipratropium [Atrovent Aerosols] 0.25 mg INHALATION 4X/DAY 07/04/16 Nitroglycerin 0.4 mg SL PRN PRN 07/04/16 Omeprazole [Prilosec] 20 mg PO DAILY 07/04/16 Pregabalin [Lyrica] 150 mg PO BID 07/04/16 Spironolactone [Aldactone] 12.5 mg PO DAILY 07/04/16 Tamsulosin HCl [Flomax] 0.4 mg PO DAILY 07/04/16 traMADol [Ultram] 50 mg PO Q4H PRN PRN 07/04/16 Alendronate Sodium [Fosamax] 70 mg PO QWEEK 07/15/17 Baclofen 10 mg PO BID PRN PRN 07/15/17 Metoprolol Succinate 25 mg PO DAILY 05/29/18 Acetaminophen [Tylenol] 500 mg PO Q6H PRN PRN tablet 05/31/18 Atorvastatin Calcium [Lipitor] 80 mg PO QHS tablet 05/31/18 Clopidogrel Bisulfate [Plavix] 75 mg PO DAILY tablet 05/31/18 Primary Care Physician: Neto Ku MD [Primary Care Provider] - Within 2 Weeks Please Follow Up With: Nick Mcgregor MD When: 1-2 months Please Follow Up With: Vascular Surgery - carotid stenosis. When: 1-2 months Disposition: Inpt Rehab Unit/Facility Minutes spent on discharge:: 35 Patient Condition:: Good Medical Necessity - Tobacco Use Smoking Status: Current every day smoker Tobacco Use: Cigarettes Meaningful Use Info Meaningful Use Diagnoses (Choose all that apply): Ischemic CVA - CVA Therapy Assessed for PT,OT and/or ST?: Yes - Ischemic Stroke Antithrombotic order at d/c?: Yes Dx of Atrial fib/flutter?: No Statins at discharge?: Yes Primary Dx Acute Ischemic CVA?: Yes IV tPA ordered during stay?: No Reason IV t-PA not ordered: Procedure not Indicated Code Visit Inpatient E&M: 84001 Disch Hosp
--- NOTE | 2018-05-31 11:19 | PHA.DC.MR ---
Pharmacy Service has performed discharge medication reconciliation for this patient upon transfer to The patient's discharge medication list was reviewed for discrepancies and discrepancies were resolved. Home Medications Albuterol Aerosols [Ventolin Aerosols] 2.5 mg INHALATION Q4H PRN PRN 07/04/16 Allopurinol 100 mg PO DAILY 07/04/16 Ascorbic Acid [Vitamin C] 1,000 mg PO DAILY 07/04/16 Aspirin [Aspirin, Baby] 81 mg PO DAILY@0800 07/04/16 Budesonide [Pulmicort] 0.25 mg IH BID 07/04/16 Cholecalciferol (Vitamin D3) [Vitamin D3] 2,000 unit PO DAILY 07/04/16 Colchicine 0.6 mg PO BID PRN 07/04/16 Ipratropium [Atrovent Aerosols] 0.25 mg INHALATION 4X/DAY 07/04/16 Nitroglycerin 0.4 mg SL PRN PRN 07/04/16 Omeprazole [Prilosec] 20 mg PO DAILY 07/04/16 Pregabalin [Lyrica] 150 mg PO BID 07/04/16 Spironolactone [Aldactone] 12.5 mg PO DAILY 07/04/16 Tamsulosin HCl [Flomax] 0.4 mg PO DAILY 07/04/16 traMADol [Ultram] 50 mg PO Q4H PRN PRN 07/04/16 Alendronate Sodium [Fosamax] 70 mg PO QWEEK 07/15/17 Baclofen 10 mg PO BID PRN PRN 07/15/17 Metoprolol Succinate 25 mg PO DAILY 05/29/18 Acetaminophen [Tylenol] 500 mg PO Q6H PRN PRN tablet 05/31/18 Atorvastatin Calcium [Lipitor] 80 mg PO QHS tablet 05/31/18 Clopidogrel Bisulfate [Plavix] 75 mg PO DAILY tablet 05/31/18
--- NOTE | 2018-05-31 16:06 | CASEMGMT ---
Addendum entered by Sandy Paez 05/31/18 16:11: Patient was approved by Dr Mcgregor and insurance for the inpatient rehab unit. JOSÉ let patient, RN, and career manager know. Plan: [facility] 4th floor rehab unit. aSndy [place] Original Note: JOSÉ received call from Ingrid and insurance approved patient. She has to clear it with Dr Mcgregor. She will call JOSÉ back. She does not anticipate he will say no. Sandy PALAFOX
--- OUTSIDE RECORDS SUMMARY | 2018-07-31 08:18 | XMS RPT_ITS ---
:1950 Author Organization OHIP Support Name Relationship Address Phone HORIZONS Unavailable [address] + [place] [address] SAMIRA PUGA Unavailable [address] + [address] [place] [address] [facility] Unavailable [address] + [place] [address] SAMIRA PUGA Unavailable [address] + [address] [place] [address] [facility] Unavailable [address] + [place] [address] SAMIRA PUGA Unavailable [address] + [address] [place] [address] [facility] Unavailable [address] + [place] [address] SAMIRA PUGA Unavailable [address] + [address] [place] [address] [facility]ORIZ[facility] Unavailable [address] + [place] [address] SAMIRA PUGA Unavailable [address] + [address] [place] [address] [facility]IZ[facility] Unavailable [address] + [place] [address] SAMIRA PUGA Unavailable [address] + [address] [place] [address] [facility] Unavailable [address] + [place] [address] SAMIRA PUGA Unavailable [address] + [address] [place] [address] [facility] Unavailable [address] + [place] [address] SAMIRA PUGA Unavailable [address] + [address] [place] [address] [facility] Unavailable [address] + [place] [address] SAMIRA PUGA Unavailable [address] + [address] [place] [address] [facility] Unavailable [address] + [place] [address] SAMIRA PUGA Unavailable [address] + [address] [place] [address] [facility] Unavailable [address] + [place] [address] SAMIRA VALDOVINOS Unavailable [address] [phone] [place] [address] Care Team Providers Name Role Phone HAM LOPEZ Attending Unavailable HAM LOPEZ Referring Unavailable Neto Alberto Primary Care Unavailable HAM LOPEZ Attending Unavailable HAM LOPEZ Referring Unavailable Neto Alberto Primary Care Unavailable ABHAY WHITAKER Attending Unavailable ABHAY WHITAKER Referring Unavailable SHIRA DELAROSA (OLESYA) Referring Unavailable GEETHA DAILEY Attending Unavailable GEETHA DAILEY Referring Unavailable JULITA ALBERTO Attending Unavailable DEBI BOWIE Attending Unavailable JULITA ALBETRO Referring Unavailable JULITA ALBERTO Attending Unavailable GEETHA DAILEY Attending Unavailable ASHLIE GEETHA D Referring Unavailable JULITA ALBERTO Attending Unavailable ASHLIE GEETHA D Referring Unavailable ASHLIE GEETHA D Referring Unavailable JULITA ALBERTO Referring Unavailable HAM LOPEZ Referring Unavailable SHIRA DELAROSA) Attending Unavailable COURTNEY BATISTA Referring Unavailable GEETHA DAILEY Referring Unavailable JASMYNE DAILEYHLTANNER Barnard Referring Unavailable DEBI BOWIE Attending Unavailable DEBI BOWIE Referring Unavailable HAM LOPEZ Attending Unavailable HAM LOPEZ Referring Unavailable Neto Alberto Primary Care Unavailable Jopperi, Elmer Admitting Unavailable Jopperi, Elmer Attending Unavailable Mcgregor, Nick Consulting Unavailable Jopperi, Elmer Admitting Unavailable KAI Flores Attending Unavailable [facility] Care Unavailable Mcgregor, Nick Consulting Unavailable Jopperi, Elmer Consulting Unavailable Jopperi, Elmer Admitting Unavailable Jopperi, Elmer Attending Unavailable [facility] Primary Care Unavailable Mcgregor, Nick Consulting Unavailable Jopperi, Elmer Consulting Unavailable Jopperi, Elmer Admitting Unavailable Jopperi, Elmer Attending Unavailable [facility] Primary Care Unavailable Mcgregor, Nick Consulting Unavailable Jopperi, Elmer Consulting Unavailable [facility] Unavailable Brendan Walker Attending Unavailable [facility] Unavailable Agyepong, Vinayak Admitting Unavailable Josee Ghgibsonm Attending Unavailable Agfátima, Vinayak Admitting Unavailable Agfátima, Vinayak Attending Unavailable [facility] Primary Care Unavailable Agfátima, Vinayak Consulting Unavailable Agyepong, Vinayak Admitting Unavailable [facility] Unavailable Ashelfah, Ghasem Consulting Unavailable Josee Ghasem Attending Unavailable Debi Bowie Attending Unavailable Debi Bowie Referring Unavailable [facility] Care Unavailable Mcgregor, Nick Admitting Unavailable Mcgregor, Nick Attending Unavailable Mcgregor, Nick Referring Unavailable [facility] Primary Care Unavailable Jopperi, Elmer Consulting Unavailable Mcgregor, Nick Admitting Unavailable Jopperi, Elmer Attending Unavailable Mcgregor, Nick Referring Unavailable [facility] Primary [facility] Unavailable Jopperi, Elmer Consulting Unavailable Mcgregor, Nick Consulting Unavailable PROBLEMS PROBLEMS DATE TYPE CONDITION / CODE ATTENDING STATUS SOURCE 05/17/2018 Active Chronic obstructive NA Active [facility] disease, [facility] unspecified / [facility] J44.9(ICD-10) Repository 12/11/2017 Active Unknown / REMY Active Sunil BERNARDOK(Unknown) JULITA Lamar [facility] Main [facility] Repository 09/19/2017 Active Peripheral vascular NA Active [facility] disease, unspecified [facility] / I73.9(ICD-10) [facility] Repository 09/19/2017 Active Disorder of arteries NA Active [facility] and arterioles, [facility] unspecified / [facility] I77.9(ICD-10) Repository 04/14/2015 Active Essential (primary) NA Active [facility] hypertension / [facility] I10(ICD-10) [facility] Repository 01/25/2014 Active Hyperlipidemia, NA Active [facility] unspecified / [facility] E78.5(ICD-10) [facility] Repository 07/27/2016 Active Supraventricular JOHN, Active [facility] tachycardia / [facility] Other I47.1(ICD-10) [facility] Repository 07/31/2017 Active Atherosclerotic heart JOHN, Active [facility] disease of [place] HURRICANE E [facility] Other coronary artery [facility] without angina Repository pectoris / I25.10(ICD-10) 07/27/2016 Admitting Unknown / JOHN, Active [facility] diagnosis UNK(Unknown) [facility] Repository PROCEDURES PROCEDURES No Procedure Records FoundRESULTS RESULTS HISTORY AND PHYSICAL Observed: 06/01/2018 Status: F Source: [facility] EXAM 1:[address] [facility] REPOSITORY [facility] Medical Records Department [address] [place] [address] History and Physical 05/29/18 1010 MR#: [id number] Acct: [id number] Name: KAMILLA DICKSON Rep #: [id number] : 1950 67 From: Madeleine QUINN PCP: Neto Alberto MD Status: DIS IN Y Location: [place] [address] ADDENDUM by KAI Jean-Baptiste on 05/29/18 at 1404 Code Visit MRI of brain with acute right MCA infarcts. MRA of neck with high-grade stenosis of the left common and internal carotid artery. Will obtain CTA of neck. 05/29/18 1404 <Electronically signed by Madeleine QUINN> Date Madeleine Jean-Baptiste cc: KAI Jean-Baptiste; Elmer Barrera DO; Neto Alberto MD * Signed Addendum entered and electronically signed by KAI Flores 05/29/18 14:00: Code Visit MRI of brain with acute right MCA infarcts. MRA of neck with high-grade stenosis of the left common and internal carotid artery. Will obtain CTA of neck. Original Note: <Madeleine Jean-Baptiste - Last Filed: 05/29/18 10:35> Problem List (1) Aspiration into airway Status: Resolved (2) Benign prostatic hypertrophy Status: Chronic (3) Hypertension Status: Chronic (4) Stage 3 chronic kidney disease Status: Chronic (5) Chronic respiratory failure Status: Chronic (6) COPD (chronic obstructive pulmonary disease) Status: Chronic (7) Paroxysmal atrial fibrillation Status: Chronic (8) DDD (degenerative disc disease) Status: Chronic (9) CAD (coronary artery disease) Status: Chronic (10) Hx of CABG Status: Chronic (11) Myoclonic jerking Status: Chronic History of Present Illness Date of Admission: 05/29/18 Chief Complaint: Left arm weakness, slurred speech. The patient is a 67 year old M who presents emergency room due to slurred speech and left-sided weakness. Patient reports he fell out of bed this morning and was unable to get himself up. He states he was short of breath at that time and was able to get himself to his night stand to use his inhaler. He lives with his sister who then called the ambulance for assistance. Patient states he has chronic shortness of breath due to COPD. He reports his breathing improved after using inhaler. He continues to complain of left arm weakness and slurred speech. Denies history of CVA. Denies vision changes. He denies hitting his head when falling out of bed. His past medical history includes CAD status post CABG, paroxysmal atrial fibrillation, COPD with chronic hypoxic respiratory failure, chronic kidney disease stage III, hypertension, hyperlipemia, BPH, gout, GERD, osteoporosis, depression. Past Medical History Past Medical History (Chronic Problems): Chronic Problems Benign prostatic hypertrophy (Chronic) Hypertension (Chronic) Stage 3 chronic kidney disease (Chronic) Chronic respiratory failure (Chronic) COPD (chronic obstructive pulmonary disease) (Chronic) Paroxysmal atrial fibrillation (Chronic) DDD (degenerative disc disease) (Chronic) CAD (coronary artery disease) (Chronic) Hx of CABG (Chronic) Myoclonic jerking (Chronic) Allergies No Known Allergies Allergy (Verified 05/29/18 07:20) Home Medications: Ambulatory Orders Medication Instructions Recorded Albuterol Aerosols [Ventolin 2.5 mg INHALATION Q4H PRN PRN 07/04/16 Surgical History: - - Bilateral carpal tunnel surgery, skin cancer status post resection, CABG, bilateral cataract surgery. Psychiatric History: Depression Lives: With Family - With sister. Smoking Status: Current every day smoker Alcohol: None Drugs: None - *Family History Maternal History Items: Asthma, - - Denies maternal cardiac history. Paternal History Items: - - Denies paternal cardiac history. Sibling History Items: No pertinent history Review of Systems Constitutional: Denies: Chills, Fever, Weight Change Eyes: Denies: Double vision, Vision Change HEENT: Denies: Head Aches, Sinus Congestion, Sinus Drainage Cardiovascular: Denies: Chest Pain, Edema, Light Headedness, Palpitations, Syncope Respiratory: Reports: Shortness of Breath - Chronic. Denies: Sputum production Gastrointestinal: Denies: Abdominal Pain, Diarrhea, Nausea, Vomiting Genitourinary: Denies: Dysuria Musculoskeletal: Denies: Joint Pain, Joint Tenderness Skin: Denies: Rash, Wounds Neurological: Reports: Slurred speech, - - Left facial droop, left arm weakness.. Denies: Confusion, Numbness, Tingling Psychiatric: Reports: Depression Hematologic/ Lymphatic: Denies: Easy Bruising, Easy Bleeding VTE Information - Inpt Only VTE Present on Admission: No VTE Mechan Device Prophylaxis: None VTE Pharm Prophylaxis ordered?: Yes Patient Problems: Active and Suspected Problems CVA (cerebral vascular accident) (Acute) - Physical Exam General: Alert, Oriented x3, Cooperative HEENT: Atraumatic, PERRLA, EOMI, Normocephalic Oral: Moist Mucosa Neck: Supple, No JVD, Negative Carotid Bruits Lungs: Clear to auscultation, Diminished Cardiovascular: Regular rate, Regular Rhythm, Normal S1, Normal S2, No murmurs Abdomen: Bowel Sounds Present, Soft, Non Tender, Non-Distended Extremities: No clubbing, No cyanosis, No edema, Capillary Refill Less than 3 Seconds Skin: No rashes, No breakdown, - - Bilateral upper extremity ecchymosis Musculoskeletal: No Tenderness to Palpation of Joints or Extremities Neurological: Cranial nerves II-XII grossly intact, - - Mild left facial droop, left arm drift/weakness. Psych/Mental Status: Normal Affect, Appropriate Vital Signs Temp Pulse Resp BP Pulse Ox 98.3 F 91 16 146/72 H 98 05/29/18 09:08 05/29/18 09:46 05/29/18 09:08 05/29/18 09:08 05/29/18 09:08 Oxygen Flow Rate (L/min) 2 Oxygen Delivery Method Nasal Cannula Weight: 147 lb 0.773 oz Body Mass Index (BMI) 26.0 Finger Stick Blood Glucose 96 Laboratory Tests Past 24 Hrs WBC 11.1 H WBC POC Glucose POC Glucose 96 Assessment/Plan All Active Problems CVA (cerebral vascular accident) (Acute) Aspiration into airway (Resolved) Sepsis (Ruled-out) 1. Left facial droop/left arm weakness, suspected CVA-brain CT on admission with no acute intracranial process. Obtain MRI of brain, MRA of head and neck. Obtain echo. Consult neurology. NIH Q4. Aspirin, statin. Lipid panel in a.m. PT/OT/ST. NPO pending speech eval. 2. CAD status post CABG-follows with Dr. Lopez, [facility] cardiology. Continue aspirin, statin, beta-janet. 3. Paroxysmal atrial fibrillation-reports he was on anticoagulation in the past but was taken off due to remaining in sinus rhythm. Currently in sinus rhythm. Continue metoprolol. 4. Chronic COPD with chronic hypoxic respiratory failure-patient wears supplemental oxygen at night. PRN albuterol aerosols. 5. Chronic kidney disease stage III-stable. 6. Hypertension-permissive. Patient on metoprolol, Aldactone. 7. Hyperlipidemia-continue statin. 8. BPH-continue Flomax regimen. 9. Gout-continue allopurinol regimen. 10. GERD-continue PPI. 11. Osteoporosis-on Fosamax weekly. 12. Depression-continue Lyrica regimen. DVT prophylaxis-Lovenox subcu This patient was seen by DAMIAN FloresC under the supervision of Dr. Barrera. <Elmer Barrera - Last Filed: 05/29/18 13:35> Problem List (1) CVA (cerebral vascular accident) Status: Acute Qualifiers: CVA mechanism: unspecified Qualified Code(s): I63.9 - Cerebral infarction, unspecified History of Present Illness Chief Complaint: left sided weakness. slurred speech. The patient is a 67 year old M who was in his normal state of health awoke, but the fell out of bed. Noted that he was week on his left side (dropping his phone out of his left hand--he is right handed). He presented to the ED and underwent a work up that was unremarkable. He is being admitted for further CVA evaluation. He has never had a stroke previously.[] Past Medical History Allergies No Known Allergies Allergy (Verified 05/29/18 07:20) Surgical History: - Psychiatric History: Depression Lives: With Family Smoking Status: Current every day smoker Tobacco Use: Cigarettes Alcohol: None Drugs: None - *Family History Maternal History Items: Asthma, - Paternal History Items: - Sibling History Items: No pertinent history Review of Systems Constitutional: Denies: Chills, Fever, Weight Change Eyes: Denies: Double vision, Vision Change HEENT: Denies: Head Aches, Sinus Congestion, Sinus Drainage Cardiovascular: Denies: Chest Pain, Edema, Light Headedness, Palpitations, Syncope Respiratory: Reports: Shortness of Breath. Denies: Sputum production Gastrointestinal: Denies: Abdominal Pain, Diarrhea, Nausea, Vomiting Genitourinary: Denies: Dysuria Musculoskeletal: Denies: Joint Pain, Joint Tenderness Skin: Denies: Rash, Wounds Neurological: Reports: Slurred speech. Denies: Confusion, Numbness, Tingling Psychiatric: Reports: Depression Hematologic/ Lymphatic: Denies: Easy Bruising, Easy Bleeding Comment: A 10 point review of systems were negative except as mentioned in the history of present illness and the other review of systems. VTE Information - Inpt Only VTE Present on Admission: No VTE Mechan Device Prophylaxis: None VTE Pharm Prophylaxis ordered?: Yes - Physical Exam General: Alert, Cooperative HEENT: Atraumatic, Normocephalic Oral: Moist Mucosa, No Gingival or Mucosal Lesions/ Ulcerations, - - Edentulous Neck: No Nodes, Thyroid Normal Size and Texture Neurological: Cranial nerves II-XII grossly intact, Motor Exam 5/5 strength throughout, - - Mild left facial droop. Muscle strength was intact in upper and lower extremities. Coordination was normal in the upper extremities but slightly diminished in the left lower extremity with heel to louie. Psych/Mental Status: Normal Affect, Appropriate Vital Signs Temp Pulse Resp BP Pulse Ox 36.8 C 99 20 H 146/72 H 98 05/29/18 09:08 05/29/18 11:00 05/29/18 10:40 05/29/18 09:08 05/29/18 09:08 Oxygen Flow Rate (L/min) 2 Oxygen Delivery Method Nasal Cannula Weight: 66.7 kg Body Mass Index (BMI) 26.0 Finger Stick Blood Glucose 96 Intake and Output for Last 24 Hours Intake Total 120 / 120 Balance 120 / 120 Laboratory Tests Past 24 Hrs WBC 11.1 H WBC RBC Hgb Hct MCV POC Glucose POC Glucose 96 Clinical Impression(s) from Imaging Studies Brain CT 05/29/18 07:18 IMPRESSION: Atherosclerotic calcifications of the vertebral and cavernous carotid arteries. No demonstrated acute intracranial process. N.B. : The above information has been verbally conveyed by Ricardo Zapata MD to Dr Juan Carlos MD, on 05/29/2018 07:44:44 (ET). Electronically Signed: Ricardo Zapata MD at 7:37 EST , Service support , Chest X-Ray 05/29/18 08:02 IMPRESSION: Increased markings at the right lung base suggestive of right basilar atelectasis. Electronically Signed: Navin Matt MD at 8:27 EST Tel [phone], Service support , Assessment/Plan Patient seen and examined independently. Data reviewed. I agree with the above note by the nurse practitioner. 1. Suspected acute stroke Time of onset is unknown patient was normal at night Patient is outside the window for TPA Patient seen by neurology, who recommends aspirin, statin and clopidogrel Patient will undergo an MRI, MRA, echocardiogram. Physical, occupational and speech therapies 2. Paroxysmal atrial fibrillation Continue with aspirin Plavix for now May need an event monitor Has been taken off anticoagulation in the past due to being in normal sinus rhythm 3. COPD Stable Continue with breathing treatments Code Visit Inpatient E AND M: [id number] Init Hosp L3 05/29/18 1035 <Electronically signed by Madeleine QUINN> Date Madeleine SALGADOC 05/29/18 1335 <Electronically signed by Elmer SOTELO Cosigner Signature: Date (if applicable) Elmer Barrera DO CC: KAI Jean-Baptiste; Elmer Barrera DO; Neto Alberto MD Signed HISTORY AND PHYSICAL Observed: 06/01/2018 Status: F Source: [facility] EXAM 12:[address] [facility] REPOSITORY [facility] Medical Records Department [address] [place] [address] History and Physical 06/01/18 1132 MR#: [id number] Acct: [id number] Name: KAMILLA DICKSON Rep #: [id number] : 1950 67 From: Nick Mcgregor MD PCP: Neto Alberto MD Status: ADM IN Location: [place] [address] History of Present Illness Date of Admission: 06/01/18 Chief Complaint: Left-sided weakness, debility Mr. Dickson is a 67-year-old right-handed male who is admitted to the rehab unit after hospitalization for stroke. Approximately 4 days ago he fell out of bed and noted left-sided weakness. He lives in a trailer with his sister, his sister called the squad he came to the hospital and was diagnosed with a right MCA distribution infarct. He has a past medical history of atrial fibrillation however apparently he has not had any atrial fibrillation recently and his telemetry monitoring while in the PCU was sinus. He was previously on Coumadin but this was discontinued remotely and he was on aspirin daily. He does smoke but he does not drink alcohol or snore. Now admitted to the rehab unit in order to improve his functional status so that he can return home to his previous level of functional independence. Past Medical History Past Medical History (Chronic Problems): Chronic Problems Benign prostatic hypertrophy (Chronic) Hypertension (Chronic) Stage 3 chronic kidney disease (Chronic) Chronic respiratory failure (Chronic) COPD (chronic obstructive pulmonary disease) (Chronic) Paroxysmal atrial fibrillation (Chronic) DDD (degenerative disc disease) (Chronic) CAD (coronary artery disease) (Chronic) Hx of CABG (Chronic) Myoclonic jerking (Chronic) Allergies No Known Allergies Allergy (Verified 05/29/18 07:20) Home Medications: Ambulatory Orders Medication Instructions Recorded Surgical History: - Psychiatric History: Depression Smoking Status: Current every day smoker Tobacco Use: Cigarettes - *Family History Maternal History Items: Asthma, - Paternal History Items: - Sibling History Items: No pertinent history Review of Systems Constitutional: Denies: Chills, Fever, Weight Change HEENT: Denies: Head Aches, Sinus Congestion, Sinus Drainage Cardiovascular: Denies: Chest Pain, Palpitations Respiratory: Denies: Cough, Shortness of breath at rest, Sputum production Gastrointestinal: Denies: Abdominal Pain, Nausea, Vomiting Genitourinary: Denies: Dysuria Musculoskeletal: Denies: Joint Pain, Joint Tenderness Skin: Denies: Rash, Wounds Neurological: Denies: Numbness, Tingling, Focal weakness Psychiatric: Denies: Anxiety, Depression, Homicidal Ideations, Suicidal Ideations Hematologic/ Lymphatic: Denies: Easy Bruising, Easy Bleeding VTE Information - Inpt Only VTE Present on Admission: Yes VTE Pharm Prophylaxis ordered?: Yes - Physical Exam General: Alert, Oriented x3, Cooperative, No apparent distress HEENT: Atraumatic, PERRLA, EOMI Neurological: Cranial nerves II-XII grossly intact, Deep Tendon Reflexes 2+/4 and Symmetrical, - - Left-sided weakness mild Psych/Mental Status: Normal Affect, Alert and oriented to time, place, person, mood and affect Vital Signs Temp Pulse Resp BP Pulse Ox 36.7 C 101 H 18 137/68 H 93 06/01/18 08:45 06/01/18 08:47 06/01/18 08:45 06/01/18 08:47 06/01/18 11:19 Oxygen Flow Rate (L/min) 2 Oxygen Delivery Method Room Air Weight: 65.3 kg Body Mass Index (BMI) 25.4 Finger Stick Blood Glucose 96 Intake and Output for Last 24 Hours Intake Total 240 / 240 Balance 240 / 240 Laboratory Tests Past 24 Hrs WBC 10.1 RBC 4.44 L Hgb 13.6 Hct 41.0 Current Medications Generic Name Dose Route Start Last Admin Trade Name Freq PRN Reason Stop Dose Admin Acetaminophen 500 mg 05/31/18 18:09 Tylenol PO Assessment/Plan All Active Problems CVA (cerebral vascular accident) (Acute) Aspiration into airway (Resolved) Sepsis (Ruled-out) Mihir status post right MCA distribution infarct, history of A. fib but he does not appear to have A. fib now. Goal of rehab is mandaen of prior level of functional independence. Plan: Physical therapy for gait and balance Occupational Therapy for ADLs DVT prophylaxis: Lovenox Protocol PRN analgesics Prophylaxis: Aspirin, Plavix, statin therapy and blood pressure control 06/01/18 1217 <Electronically signed by Nick Mcgregor MD> Date Nick Mcgregor MD Cosigner Signature: Date (if applicable) CC: Neto Alberto MD; Nick Mcgregor MD Signed COMPREHENSIVE METABOLIC Collected: 06/01/2018 Status: F Source: [place] [facility] 5:[address] [facility] REPOSITORY TYPE CODE TESTS RESULT OUT OF RANGE REFERENCE UNITS LAB L501.0100 74-106 mg/dL Normal GLU 94 Result Comment: Please note revised GLUCOSE reference range effective 2017. LAB L501.1000 7-18 mg/dL Normal BUN 14 LAB L501.1100 0.70-1.30 mg/dL Normal CREAT,SERUM 0.83 Result Comment: The validity of the calculated GFR AND GFRAA in patients over 70 years has not been determined. Clinical correlation is essential. LAB L501.1110 >60 mL/min Normal EST GFR 97 Result Comment: Non- GFR Calc LAB L501.1115 >60 mL/min Normal EST GFR - AA 118 Result Comment: GFR Calc LAB L501.1255 ml/min Normal Estimated CRCL 67.60 LAB L501.1300 10-20 RATIO Normal BUN/CRE 16.8 LAB L501.1500 6.4-8. g/dL Normal 2 T PROT 7.0 LAB L501.1800 3.2-5. g/dL Normal 0 ALB 3.2 LAB L501.1950 2.2-4. g/dL Normal 2 GLOB 3.8 LAB L501.2000 0.9-2. RATIO Low 4 A/G 0.8 LAB L501.2200 8.5-10 mg/dL Normal .1 CA 8.9 LAB L501.4100 15-37 U/L Normal AST 24 LAB L501.4305 45-117 U/L Normal ALK P 100 LAB L501.4405 16-61 U/L Normal ALT 27 LAB L501.4600 0.20-1 mg/dL Normal .00 T BILI 0.70 LAB L501.5300 136-14 mmol/L Normal 5 NA 144 LAB L501.5600 3.5-5. mmol/L Normal 1 K 3.7 LAB L501.5900 98-107 mmol/L High CL 108 LAB L501.6100 21.0-3 mmol/L Normal 2.0 CO2 28.0 LAB L501.6200 5-15 Normal GAP 8 Performed By: #### L500.4050 #### [facility] [address] [place], [address] CBC W/DIFF, AUTOMATED Collected: 06/01/2018 Status: F Source: [facility] 5:[address] [facility] REPOSITORY TYPE CODE TESTS RESULT OUT OF RANGE REFERENCE UNITS LAB L100.1000 4.4-11.0 K/mm3 Normal WBC 10.1 LAB L100.1200 4.6-6.2 M/mm3 Low RBC 4.44 LAB L100.1300 13.0-16.5 g/dl Normal HGB 13.6 LAB L100.1400 40-54 % Normal HCT 41.0 LAB L100.1500 80-94 fL Normal MCV 92.3 LAB L100.1600 27.0-32.0 pg Normal MCH 30.6 LAB L100.1700 32-36 g/gl Normal MCHC 33.2 LAB L100.1810 11.6-14.6 % Normal RDW CV 13.5 LAB L100.1820 35.1-43.9 fl High RDW SD 44.6 LAB L100.1900 150-450 K/mm3 Normal PLT 234 LAB L100.2000 6.2-12.0 fl Normal MPV 11.1 LAB L100.2100 47-70 % Normal NEUT% 60.3 LAB L100.2200 19-41 % Low LY% 18.5 LAB L100.2300 0-10 % High MONO% 14.7 LAB L100.2400 0-5 % High EO% 5.7 LAB L100.2500 0-1 % Normal BASO% 0.6 LAB L100.2550 0.0-0.9 % Normal IM GRAN % 0.200 Result Comment: IG% - Immature Granulocytes (promyelocytes, myelocytes and metamyelocytes) > 1% indicates that a LEFT SHIFT is Present. LAB L100.2620 2.0-7.7 X10 3/uL Normal Absolute Neut 6.1 LAB L100.2720 0.83-4.51 X10 3/ul Normal Absolute Lymph 1.87 Performed By: #### L100.0100 #### [facility] [address] [place], [address] DISCHARGE SUMMARY Observed: 05/31/2018 Status: F Source: [place] 10:[address] [facility]POS[facility] Medical Records Department [address] [place] [address] Discharge Summary 05/31/18 1022 MR#: [id number] Acct: [id number] Name: KAMILLA DICKSON Rep #: [id number] : 1950 67 From: Elmer Barrera DO PCP: Neto Alberto MD Status: ADM IN Location: [place] [address] Discharge Date and Diagnosis - Problem List Patient Problems: Active and Suspected Problems CVA (cerebral vascular accident) (Acute) Date of Admission: 05/29/18 Date of Discharge: 05/31/18 - Primary Discharge Diagnosis Active and Suspected Problems CVA (cerebral vascular accident) (Acute) - Secondary Discharge Diagnosis Chronic Problems Benign prostatic hypertrophy (Chronic) Hypertension (Chronic) Stage 3 chronic kidney disease (Chronic) Chronic respiratory failure (Chronic) COPD (chronic obstructive pulmonary disease) (Chronic) Paroxysmal atrial fibrillation (Chronic) DDD (degenerative disc disease) (Chronic) CAD (coronary artery disease) (Chronic) Hx of CABG (Chronic) Myoclonic jerking (Chronic) Hospital Course and Treatment Imaging Results: Clinical Impression(s) from Imaging Studies Brain CT 05/29/18 07:18 IMPRESSION: Atherosclerotic calcifications of the vertebral and cavernous carotid arteries. No demonstrated acute intracranial process. N.B. : The above information has been verbally conveyed by Ricardo Zapata MD to Dr Juan Carlos MD, on 05/29/2018 07:44:44 (ET). Electronically Signed: Ricardo Zapata MD at 7:37 EST , Service support , Chest X-Ray 05/29/18 08:02 IMPRESSION: Increased markings at the right lung base suggestive of right basilar atelectasis. Electronically Signed: Navin Matt MD at 8:27 EST Tel [phone], Service support , Brain MRI 05/29/18 10:07 IMPRESSION: Acute right MCA infarctions. N.B. : The above information has been verbally conveyed by Vanessa Dillard MD to Madeleine Jean-Baptiste NP, on 05/29/2018 13:58:04 (ET). Electronically Signed: Vanessa Dillard MD at 13:49 EST Tel , Service support , Head MRA 05/29/18 10:07 IMPRESSION: Greater than 75% stenosis of the right cavernous carotid artery. Further evaluation with CTA can be obtained. Electronically Signed: Vanessa Dillard MD at 13:51 EST Tel , Service support , Neck MRA 05/29/18 10:08 IMPRESSION: High-grade stenosis of the left common and internal carotid artery. Further evaluation with CTA is recommended. Electronically Signed: Vanessa Dillard MD at 13:55 EST Tel , Service support , Head CTA 05/29/18 14:11 IMPRESSION: 1. Atherosclerotic calcifications of the vertical petrous segments of the internal carotid arteries with greater than 70% stenosis on the right and approximately 50% narrowing on the left. 2. Additional calcific plaquing in the cavernous siphons of the internal carotid arteries with less than 25% narrowing. 3. Question of curved, fingerlike 5 mm projection/aneurysm from the confluence of the vertical left petrous segment and proximal carotid siphon. This was not apparent on the MRA exam, and may be summation artifact 4. The anterior intracranial arterial circulation is otherwise intact. 5. Atretic or occluded distal right vertebral artery. The dominant left vertebral artery shows less than 50% atherosclerotic narrowing, perfusing the patent basilar artery. 6. Mild to moderate tapering of the distal P1 segment of the right posterior cerebral artery. The P2 and visualized distal P3 segments as well as left posterior cerebral artery are patent. Electronically Signed: Jonathan Sotelo MD at 19:33 EST , Service support , Neck CTA 05/29/18 14:11 IMPRESSION: 1. Extensive calcific atherosclerotic plaque in the left carotid artery bifurcation with greater than 70% narrowing of the distal common carotid artery and greater than 70% ostial stenosis of the internal carotid artery. 2. Atherosclerotic calcification at the right carotid artery bifurcation without significant internal carotid artery stenosis. 3. Moderate atherosclerotic stenoses at the ostia of both right left vertebral arteries. The right vertebral artery is diminutive in caliber, while the dominant left vertebral artery is approximately 4.5 mm diameter. Electronically Signed: Jonathan Sotelo MD at 19:28 EST , Service support , Nick Mcgregor MD: neurology. Operations: None Procedures: None Summary of Care Provided: The patient is a 67 year old M presents with a left upper extremity weakness and slurred speech. Patient underwent a workup that showed a right MCA stroke. Head CTA showed a 70% stenosis of the right internal carotid at the petrous segments. No segment stenosis more proximally, however. Discussed with neurology and given that they are intracranial and not amenable to intervention. Patient did have, however left proximal internal carotid stenosis. This stenosis was noncontributory to his acute stroke as it was on the contralateral side. Patient can follow-up with vascular surgery for evaluation of the at a later point. Patient's symptoms have essentially resolved though he still does have some fine motor dexterity issues with his left upper extremity but that is overall improved. Patient will benefit from an outpatient event monitor to evaluate for any arrhythmia. Patient does have a history of paroxysmal atrial fibrillation but has been normal sinus here. Previously, the patient was taken off anticoagulation given him being in normal sinus rhythm. TPA not given, as the time of onset was not in and then woke with the symptoms. [] Patient Problems: Active and Suspected Problems CVA (cerebral vascular accident) (Acute) - Physical Exam Vital Signs Temp Pulse Resp BP Pulse Ox 37.0 C 78 18 122/67 H 96 05/31/18 09:10 05/31/18 09:51 05/31/18 09:10 05/31/18 09:10 05/31/18 09:10 Oxygen Flow Rate (L/min) 2 Oxygen Delivery Method Nasal Cannula Weight: 66.7 kg Body Mass Index (BMI) 26.0 Finger Stick Blood Glucose 96 Intake and Output for Last 24 Hours Intake Total 994 / 994 1028 / 1028 240 / 240 Output Total Balance 993 / 993 1028 / 1028 240 / 240 Discharge Diet: Low fat/ Low Cholesterol Discharge Activity: Return to Normal Activity Call your doctor if you observe: Numbness or Tingling, - - unilateral weakness. Home Medications: Medications to take at Discharge Albuterol Aerosols [Ventolin Aerosols] 2.5 mg INHALATION Q4H PRN PRN 07/04/16 Albuterol Inhaler [Ventolin Hfa] 2 puff INHALATION Q6H PRN PRN 07/04/16 Allopurinol 100 mg PO DAILY 07/04/16 Ascorbic Acid [Vitamin C] 1,000 mg PO DAILY 07/04/16 Aspirin [Aspirin, Baby] 162 mg PO DAILY@0800 07/04/16 Budesonide [Pulmicort] 0.25 mg IH BID 07/04/16 Cholecalciferol (Vitamin D3) [Vitamin D3] 2,000 unit PO DAILY 07/04/16 Colchicine 0.6 mg PO BID PRN 07/04/16 Ipratropium [Atrovent Aerosols] 0.25 mg INHALATION 4X/DAY 07/04/16 Nitroglycerin 0.4 mg SL PRN PRN 07/04/16 Omeprazole [Prilosec] 20 mg PO DAILY 07/04/16 Pregabalin [Lyrica] 150 mg PO BID 07/04/16 Spironolactone [Aldactone] 12.5 mg PO DAILY 07/04/16 Tamsulosin HCl [Flomax] 0.4 mg PO DAILY 07/04/16 traMADol [Ultram] 50 mg PO Q4H PRN PRN 07/04/16 Alendronate Sodium [Fosamax] 70 mg PO QWEEK 07/15/17 Baclofen 10 mg PO BID PRN PRN 07/15/17 Metoprolol Succinate 25 mg PO DAILY 05/29/18 Acetaminophen [Tylenol] 500 mg PO Q6H PRN PRN tablet 05/31/18 Atorvastatin Calcium [Lipitor] 80 mg PO QHS tablet 05/31/18 Clopidogrel Bisulfate [Plavix] 75 mg PO DAILY tablet 05/31/18 Primary Care Physician: Neto Alberto MD [Primary Care Provider] - Within 2 Weeks Please Follow Up With: Nick Mcgregor MD When: 1-2 months Please Follow Up With: Vascular Surgery - carotid stenosis. When: 1-2 months Disposition: Inpt Rehab Unit/Facility Minutes spent on discharge:: 35 Patient Condition:: Good Medical Necessity - Tobacco Use Smoking Status: Current every day smoker Tobacco Use: Cigarettes Meaningful Use Info Meaningful Use Diagnoses (Choose all that apply): Ischemic CVA - CVA Therapy Assessed for PT,OT and/or ST?: Yes - Ischemic Stroke Antithrombotic order at d/c?: Yes Dx of Atrial fib/flutter?: No Statins at discharge?: Yes Primary Dx Acute Ischemic CVA?: Yes IV tPA ordered during stay?: No Reason IV t-PA not ordered: Procedure not Indicated Code Visit Inpatient E AND M: 30930 Disch Hosp 05/31/18 1028 <Electronically signed by Elmer Barrera DO> Date Elmer Barrera DO Cosigner Signature (if applicable): Date CC: Elmer Barrera DO; Neto Alberto MD Signed DISCHARGE INSTRUCTION Observed: 05/31/2018 Status: F Source: [place] 10:[address] [facility] Medical Records Department [address] [place] [address] Instructions for Home/Discharge Instructions 05/31/18 1020 MR#: [id number] Acct: [id number] Name: KAMILLA DICKSON Rep #: [id number] : 1950 67 From: Elmer Barrera DO PCP: Neto Alberto MD Status: ADM IN - Discharge Diagnoses Current Active Problems: Current Active and Chronic Problems CVA (cerebral vascular accident) (Acute) You will use the following diet at home:: Cardiac Your food should be the consistency of: Regular Your liquids should be the consistency of: Regular/Thin Call your doctor if you observe: Numbness or Tingling, - - unilateral weakness. Allergies/Adverse Reactions: Allergies No Known Allergies Allergy (Verified 05/29/18 07:20) Medications to take at Discharge Albuterol Aerosols [Ventolin Aerosols] 2.5 mg INHALATION Q4H PRN PRN 07/04/16 Albuterol Inhaler [Ventolin Hfa] 2 puff INHALATION Q6H PRN PRN 07/04/16 Allopurinol 100 mg PO DAILY 07/04/16 Ascorbic Acid [Vitamin C] 1,000 mg PO DAILY 07/04/16 Aspirin [Aspirin, Baby] 162 mg PO DAILY@0800 07/04/16 Budesonide [Pulmicort] 0.25 mg IH BID 07/04/16 Cholecalciferol (Vitamin D3) [Vitamin D3] 2,000 unit PO DAILY 07/04/16 Colchicine 0.6 mg PO BID PRN 07/04/16 Ipratropium [Atrovent Aerosols] 0.25 mg INHALATION 4X/DAY 07/04/16 Nitroglycerin 0.4 mg SL PRN PRN 07/04/16 Omeprazole [Prilosec] 20 mg PO DAILY 07/04/16 Pregabalin [Lyrica] 150 mg PO BID 07/04/16 Spironolactone [Aldactone] 12.5 mg PO DAILY 07/04/16 Tamsulosin HCl [Flomax] 0.4 mg PO DAILY 07/04/16 traMADol [Ultram] 50 mg PO Q4H PRN PRN 07/04/16 Alendronate Sodium [Fosamax] 70 mg PO QWEEK 07/15/17 Baclofen 10 mg PO BID PRN PRN 07/15/17 Metoprolol Succinate 25 mg PO DAILY 05/29/18 Acetaminophen [Tylenol] 500 mg PO Q6H PRN PRN tablet 05/31/18 Atorvastatin Calcium [Lipitor] 80 mg PO QHS tablet 05/31/18 Clopidogrel Bisulfate [Plavix] 75 mg PO DAILY tablet 05/31/18 Primary Care Physician: Neto Alberto MD [Primary Care Provider] - Within 2 Weeks Test Results: Test results from this visit will be discussed in further detail at your follow-up appointment, if applicable. Please Follow Up With: Nick Mcgregor MD When: 1-2 months Please Follow Up With: Vascular Surgery - carotid stenosis. When: 1-2 months Proposed Discharge Date: 05/31/18 05/31/18 1022 <Electronically signed by Elmer Barrera DO> Date Elmer Barrera DO CC: Neto Alberto MD; Nick Mcgregor MD Signed 12 LEAD ELECTROCARDIOGRAM Observed: 05/30/2018 Status: F Source: [place] 1:[address] [facility] Cardiovascular Services [address] [place] [id number] 12 Lead EKG 05/29/18 0739 MR#: [id number] Acct: [id number] Name: KAMILLA DICKSON Rep #: [id number] : 1950 67 From: Rodney Noe MD Attending Dr: Elmer Barrera DO Status: ADM IN Ordering Dr: Armani Servin MD Date: 05/29/18 Location: [facility] Sex: M C Admitted: 05/29/18 Test Reason : ILLNESS Blood Pressure : / mmHG Vent. Rate : 091 BPM Atrial Rate : 091 BPM P-R Int : 108 ms QRS Dur : 098 ms QT Int : 382 ms P-R-T Axes : 079 -06 030 degrees QTc Int : 469 ms Sinus rhythm with short SD Low voltage QRS Borderline ECG Confirmed by CRISTA VENEGAS, RODNEY ([id number]), graphics editor ASIF PITT ([id number]) on 05/30/2018 1:38:42 PM Referred By: JUAN CARLOS Confirmed By:RODNEY NOE MD 05/30/18 1338 Date Rodney Noe MD CC: Elmer Barrera DO; Neto Alberto MD; Armani Servin MD Signed ECHO, COMPLETE W/ Observed: 05/30/2018 Status: F Source: [place] CONTRAST 11:[address] [facility] Cardiovascular Services [address] [place] [address] Echo Complete W/ Contrast 05/30/18 0820 MR#: [id number] Acct: [id number] Name: KAMILLA DICKSON Rep #: [id number] : 1950 67 From: Ced Wiggins MD Attending Dr: Elmer Barrera DO Status: ADM IN Ordering Dr: Madeleine Jean-Baptiste Date: 05/29/18 Location: U Sex: M C Admitted: 05/29/18 Reason For Study: TIA/CVA Procedure This was a 2D Doppler, Color Flow transthoracic echocardiogram. Exam performed portable in patient room. Left Ventricle Moderately dilated left ventricle. The estimated ejection fraction is 45 %. Stage 2 diastolic dysfunction. Posterior-Basal: Severely hypokinetic. Infero- Basal: Severely Hypokinetic. Right Ventricle Normal size and thickness. Normal systolic function. Atria Normal left atrium. Normal right atrium. Normal atrial septum. Mitral Valve The mitral valve is structurally normal. No prolapse or stenosis seen. Tricuspid Valve Normal tricuspid valve. Unable to estimate RV systolic pressure due to inadequate jet, pulmonary artery pressure probably normal. Aortic Valve Normal aortic valve. Trisinus/trileaflet aortic valve. Pulmonic Valve The pulmonic valve is not well visualized. Great Vessels Normal aortic root. Normal arch. Normal inferior vena cava. Inferior vena cava collapse with sniff. Pericardium/Pleural No pericardial effusion. Medication Diluted definity 5ml given slow IV push to enhance endocardial definition. MMode/2D Measurements AND Calculations LVIDd: 5.6 cm IVSd: 0.70 cm Ao root diam: 2.7 cm LVIDs: 4.3 cm LVPWd: 0.85 cm RVDd: 3.6 cm FS: 22.8 % LAV(MOD-bp): 48.8 ml LA A4 area: 16.0 cm2 LA dimension(2D): 4.1 cm LAV(MOD-bp) Indexed: 28.8 ml/m2 LAV(MOD-sp2): 54.3 ml LAV(MOD-sp4): 42.4 ml RA A4 area: 15.1 cm2 Doppler Measurements AND Calculations MV E max migdalia: 96.3 cm/sec Lat Peak E' Migdalia: 12.2 cm/sec Med Peak E' Migdalia: 6.5 cm/sec MV A max migdalia: 62.7 cm/sec E/E' lat: 7.9 E/E' med: 14.8 MV E/A: 1.5 Ao V2 max: 113.1 cm/sec LV V1 max: 93.9 cm/sec PA V2 max: 80.9 cm/sec Ao max P.1 mmHg LV V1 max P.5 mmHg Interpretation Summary Moderately dilated left ventricle. The estimated ejection fraction is 45 %. Stage 2 diastolic dysfunction. Posterior-Basal: Severely hypokinetic. Infero-Basal: Severely Hypokinetic. Unable to estimate RV systolic pressure due to inadequate jet, pulmonary artery pressure probably normal. Compared to echo report dated 09/26/2015, no appreciable changes noted. The study was technically difficult. Contrast injection was performed. Ordering Physician: KAI Flores Referring Physician: MD Julita Alberto Performed By: Jaqueline Torres RDCS 05/30/18 1146 Date Ced Wiggins MD CC: ELECTRONICS INSPECTOR-Eric Jean-Baptiste; Elmer Barrera DO; Neto Alberto MD Date Dictated: 05/30/18819 Date Transcribed: 05/30/18 114 Suspension Cord Tier: Signed CONSULTATION Observed: 05/30/2018 Status: F Source: [place] 9:[address] [facility] Medical Records Department [address] [place] [address] Consultation 05/29/18 1034 MR#: [id number] Acct: [id number] Name: KAMILLA DICKSON Rep #: [id number] : 1950 67 From: Nick Mcgregor MD PCP: Neto Alberto MD Status: ADM IN Y Location: [place] [address] Reason for Consult Date of Consultation: 05/29/18 Reason for Consultation: left sided weakness History of Present Illness: 67 yo right handed white male presents after awakening this am having fallen out of bed for unclear reasons, after fell out of bed noted left side weakness, eventually able to get up and sister called the squad, reports left side still weak, reports his speech was severely affected, now improved but not baseline. felt normal when went to bed last night at 10pm. no previous episodes of falling out of bed in sleep. no enuresis. no tongue biting. 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 reports he has a history of afib which went away. previously on coumadin, now takes asa daily. +tob. no etoh. no snoring. believes his current symptoms may be due to sob due to missed inhalers. Per admit note: The patient is a 67 year old M who presents emergency room due to slurred speech and left-sided weakness. Patient reports he fell out of bed this morning and was unable to get himself up. He states he was short of breath at that time and was able to get himself to his night stand to use his inhaler. He lives with his sister who then called the ambulance for assistance. Patient states he has chronic shortness of breath due to COPD. He reports his breathing improved after using inhaler. He continues to complain of left arm weakness and slurred speech. Denies history of CVA. Denies vision changes. He denies hitting his head when falling out of bed. His past medical history includes CAD status post CABG, paroxysmal atrial fibrillation, COPD with chronic hypoxic respiratory failure, chronic kidney disease stage III, hypertension, hyperlipemia, BPH, gout, GERD, osteoporosis, depression. Past Medical History Past Medical History (Chronic Problems): Chronic Problems Benign prostatic hypertrophy (Chronic) Hypertension (Chronic) Stage 3 chronic kidney disease (Chronic) Chronic respiratory failure (Chronic) COPD (chronic obstructive pulmonary disease) (Chronic) Paroxysmal atrial fibrillation (Chronic) DDD (degenerative disc disease) (Chronic) CAD (coronary artery disease) (Chronic) Hx of CABG (Chronic) Myoclonic jerking (Chronic) Allergies No Known Allergies Allergy (Verified 05/29/18 07:20) Home Medications: Ambulatory Orders Medication Instructions Recorded Albuterol Aerosols [Ventolin 2.5 mg INHALATION Q4H PRN PRN 07/04/16 Surgical History: - - Bilateral carpal tunnel surgery, skin cancer status post resection, CABG, bilateral cataract surgery. Psychiatric History: Depression Lives: With Family - With sister. Smoking Status: Current every day smoker Alcohol: None Drugs: None - *Family History Maternal History Items: Asthma, - - Denies maternal cardiac history. Paternal History Items: - - Denies paternal cardiac history. Sibling History Items: No pertinent history Review of Systems Constitutional: Denies: Chills, Fever, Night Sweats, Weight Change Eyes: Denies: Blurred vision HEENT: Denies: Head Aches, Sinus Congestion, Sinus Drainage Cardiovascular: Denies: Chest Pain, Palpitations Respiratory: Reports: Shortness of Breath. Denies: Cough, Shortness of breath at rest, Sputum production Gastrointestinal: Denies: Abdominal Pain, Nausea, Vomiting Genitourinary: Denies: Dysuria Musculoskeletal: Denies: Joint Pain, Joint Tenderness Skin: Denies: Rash, Wounds Neurological: Reports: Focal weakness - left side per hpi. Denies: Numbness, Tingling Psychiatric: Denies: Anxiety, Depression, Homicidal Ideations, Suicidal Ideations Hematologic/ Lymphatic: Denies: Easy Bruising, Easy Bleeding - Physical Exam General: Alert, Oriented x3, Cooperative, No apparent distress HEENT: Atraumatic, PERRLA, EOMI Neurological: Cranial nerves II-XII grossly intact, Slurred Speech, - - mild lue drift and discoord with orbit testing Psych/Mental Status: Normal Affect, Alert and oriented to time, place, person, mood and affect Vital Signs Temp Pulse Resp BP Pulse Ox 36.8 C 91 16 146/72 H 98 05/29/18 09:08 05/29/18 09:46 05/29/18 09:08 05/29/18 09:08 05/29/18 09:08 Oxygen Flow Rate (L/min) 2 Oxygen Delivery Method Nasal Cannula Weight: 66.7 kg Body Mass Index (BMI) 26.0 Finger Stick Blood Glucose 96 Laboratory Tests Past 24 Hrs WBC 11.1 H WBC POC Glucose POC Glucose 96 Current Medications Generic Name Dose Route Start Last Admin Trade Name Freq PRN Reason Stop Dose Admin Albuterol Sulfate 2.5 mg 05/29/18 10:15 05/29/18 10:33 Ventolin Aerosols INHALATION 2.5 mg Current Home Med List Medication Instructions Recorded Confirmed Type CT reviewed, no acute Assessment/Plan All Active Problems Aspiration into airway (Resolved) Sepsis (Ruled-out) left sided weakness, suspect small vessel right BG infarct await mri tele pt/ot/sp asa/plavix/statin rx 05/30/18 0955 <Electronically signed by Nick Mcgregor MD> Date Nick Mcgregor MD Cosigner Signature (if applicable): Date CC: Neto Alberto MD; Nick Mcgregor MD Signed LIPID PROFILE Collected: 05/30/2018 Status: F Source: [place] 5:[address] [facility] REPOSITORY TYPE CODE TESTS RESULT OUT OF RANGE REFERENCE UNITS LAB L501.4900 200 mg/dL Normal CHOL 129 Result Comment: <200 mg/dL Desirable 200-240 mg/dL Borderline >240 mg/dL High Risk LAB L501.5000 mg/dL Normal TRIG 84 Result Comment: The drugs N-Acetylcysteine and Metamizole may falsely depress this assay. Serum Triglycerides Reference Interval Normal <150 mg/dL Borderline high 150 - 199 mg/dL High 200 - 499 mg/dL Very High > or = 500 mg/dL LAB L501.6400 mg/dL Normal HDL 57 Result Comment: The drugs N-Acetylcysteine and Metamizole may falsely depress this assay. Reference Range HDL <40 mg/dL Low HDL Cholesterol HDL >or= 60 mg/dL High HDL Cholesterol LAB L501.6500 0-130 mg/dL Normal LDL 55 LAB L501.6600 5-40 mg/dL Normal VLDL 17 Performed By: #### L500.4100 #### [facility] [address] [place], [address] CNPN Observed: 05/30/2018 Status: COMPLETED Source: [place] 12:00 AM [facility] REPOSITORY Telephone (FPWADS) KAMILLA DICKSON ([id number]) 1950 M Date Time Provider Department 05/30/18 JULITA ALBERTO During your visit today, we recorded the following information about you: Madeleine Enamorado Ma 05/30/2018 11:04 AM Signed Received CXR from [facility] 05/29/18 Madeleine Enamorado Ma 05/30/2018 11:[address] [facility] HANDP 05/29/18 Madeleine Enamorado Ma Allergies As of Date: 05/30/2018 Noted Allergy Reaction NO KNOWN ALLERGIES 01/13/2017 14 - Other: See Comments Date Reviewed: 05/17/2018 Reviewed by: Shira Delarosa - Fully Assessed Reason for Visit: [facility] CXR [Other] Prescriptions as of 05/30/2018 Sig: ALBUTEROL SULFATE 2.5 MG/3 ML* Use 3 mL via nebulizer every * BUDESONIDE 0.5 MG/2 ML SUSPEN* Use 2 mL via nebulizer twice * IPRATROPIUM BROMIDE 0.02 % SO* Use 2.5 mL via nebulizer four* NEBULIZER AND COMPRESSOR 1 Each as directed. IPRATROPIUM 20 MCG-ALBUTEROL * Inhale 1 Inhalation as instru* OMEPRAZOLE 20 MG CAPSULE,YOKO* Take 1 capsule by mouth daily* ALLOPURINOL 100 MG TABLET Take 1 tablet by mouth once d* ATORVASTATIN 10 MG TABLET Take 1 tablet by mouth daily * METOPROLOL SUCCINATE ER 25 MG* Take 1 tablet by mouth once d* NICOTINE 14 MG/24 HR DAILY TR* Apply 1 Patch as directed nicol* SPIRONOLACTONE 25 MG TABLET Take 0.5 tablets by mouth onc* HYDROXYCHLOROQUINE 200 MG TAB* TAKE 2 TABLETS BY MOUTH ONCE * ALENDRONATE 70 MG TABLET Take 1 tablet by mouth once e* TAMSULOSIN 0.4 MG CAPSULE Take 1 capsule by mouth once * COLCRYS 0.6 MG TABLET Take 0.6 mg by mouth twice da* TRAMADOL 50 MG TABLET Take 50 mg by mouth four time* PREGABALIN 150 MG CAPSULE Take 1 capsule by mouth twice* BACLOFEN 10 MG TABLET Take 1 tablet by mouth twice * COLCHICINE 0.6 MG CAPSULE Take 1 capsule by mouth twice* Patient taking differently: Take 0.6 mg by mouth as neede* NITROGLYCERIN 0.4 MG SUBLINGU* Dissolve 1 tablet under the t* COMPOUNDED PRESCRIPTION Aerosol nebulizer. Dx COPD. CICLOPIROX 8 % TOPICAL SOLUTI* Apply 1 application to affect* ASCORBIC ACID (VITAMIN C) 500* Take 2 tablets by mouth once * CHOLECALCIFEROL (VITAMIN D3) * Take 1 tablet by mouth once d* ASPIRIN 81 MG CHEWABLE TABLET Take 2 tablets by mouth once * THERAPEUTIC MULTIVITAMIN TABL* Take 1 tablet by mouth daily * Problem List As Of Date 05/30/2018 Noted Resolved COPD (chronic obstructive pulmonary disease) [J*INVALID FOR* More... Essential hypertension [I10] INVALID FOR* More... Chronic atrial fibrillation (HCC) [I48.2] INVALID FOR*06/15/2016 More... Hyperlipidemia [E78.5] INVALID FOR* More... Degenerative disc disease [PTB7858] INVALID FOR* Lumbar disc disease [M51.9] INVALID FOR* Spinal stenosis [M48.00] INVALID FOR* More... Coronary artery disease [I25.10] INVALID FOR* Neoplasm of uncertain behavior of skin: R/O Ski*INVALID FOR* Actinic Keratoses: Premalignant AK's [L57.0] INVALID FOR* Other seborrheic keratosis [L82.1] INVALID FOR* Actinic skin damage [L57.8] INVALID FOR* Melanocytic nevus of trunk [D22.5] INVALID FOR* Xerosis cutis [L85.3] INVALID FOR* Skin tag [L91.8] INVALID FOR* Open wound(s) (multiple) of unspecified site(s)*INVALID FOR* SUMMARY [V999.95] INVALID FOR* More... CAD (coronary artery disease), [place] coronary *INVALID FOR* More... Bronchitis [J40] INVALID FOR* More... Preop testing [Z01.818] INVALID FOR*01/17/2014 More... More... Mechanically assisted ventilation (HCC) [Z99.11]INVALID FOR*01/18/2014 More... Hypotension [I95.9] INVALID FOR*01/24/2014 More... Pain [R52] INVALID FOR* More... Leukocytosis [D72.829] INVALID FOR* More... Hyponatremia [E87.1] INVALID FOR* More... 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.1] INVALID FOR* GERD (gastroesophageal reflux disease) [K21.9] INVALID FOR* Osteopenia [M85.80] INVALID FOR* Lumbar stenosis with neurogenic claudication [M*INVALID FOR* Facet arthropathy, lumbar [M47.816] INVALID FOR* Low back pain [M54.5] INVALID FOR*01/29/2015 Cancer of skin, squamous cell [C44.92] INVALID FOR* Osteoporosis [M81.0] INVALID FOR* Spinal stenosis of lumbar region with radiculop*INVALID FOR*01/29/2015 Bilateral low back pain without sciatica [M54.5]INVALID FOR*10/21/2015 Adjustment disorder with mixed anxiety and depr*INVALID FOR* Chronic bilateral low back pain without sciatic*INVALID FOR*10/22/2015 Decreased pulses in feet [R09.89] INVALID FOR* Dehydration [E86.0] INVALID FOR* More... Abnormal echocardiogram [R93.1] INVALID FOR* PVC's (premature ventricular contractions) [I49*INVALID FOR* SVT (supraventricular tachycardia) ([facility]) [I47.1]INVALID FOR* Encounter Status:Closed by MADELEINE ENAMORADO MA on 05/30/18 CTA NECK W/WO Observed: 05/29/2018 Status: F Source: [place] CONTRAST 2:[address] [facility] Imaging Services [address] [place] [address] CTA Neck W/WO Contrast MR#: [id number] Acct: [id number] Name: KAMILLA DICKSON Rep #: [id number] : 1950 M 67 From: William Sotelo MD PCP: Neto Alberto MD Status: ADM IN Study: CTA Neck W/WO Contrast Date of Exam: 05/29/18 Exam# [id number] Ordering Dr: Elmer Barrera DO STUDY: CTA NECK WITH CONTRAST REASON FOR EXAM: Male, 67 years old. Right hemispheric stroke. RADIATION DOSAGE (If Supplied By Facility): CTDIvol = ( 22.96 ) mGy, DLP = ( 629.69 ) mGycm TECHNIQUE: CT angiography with multi-detector data acquisition was performed from the aortic arch to the skull base following intravenous administration of 100 ml of Isovue 370 contrast. MIP images were reconstructed from the axial data set. Post-processing of the angiographic images was performed, with multiplanar reformation and 3D reconstruction. Individualized dose optimization techniques were used for this CT. COMPARISON: MRA neck 1301 hours. FINDINGS: AORTIC ARCH: There is atherosclerotic calcific plaque formation of the aortic arch and great vessels arising from the aortic arch, without a hemodynamically significant stenosis. There is normal anatomic origin of the brachiocephalic, left common carotid, and left subclavian arteries. Atherosclerotic calcific plaque formation also seen at the takeoff of the right subclavian artery without significant stenosis RIGHT CAROTID ARTERIES: Mild eccentric atherosclerotic calcification of the vessel takeoff as well as mild to moderate calcific plaquing at the distal third of the vessel. There is mild to moderate calcific atherosclerotic plaque formation with minimal narrowing of the right carotid bulb. There is mild atherosclerotic plaque formation of the origin of the right internal carotid artery with less than 25% cross sectional diameter stenosis. Normal visualized cervical portion of the right internal carotid artery. There is mild atherosclerotic plaque formation of the origin of the right external carotid artery with less than 25% cross sectional diameter stenosis. LEFT CAROTID ARTERIES: There is atherosclerotic plaque formation of the common carotid artery origin, but without a hemodynamically significant stenosis. Moderate calcific plaquing with less than 50% stenosis also seen at the midsegment of the vessel or this is followed by mixed calcified and noncalcified plaquing with greater than 70% stenosis in the distal third of the vessel. There is moderate atherosclerotic plaque formation with moderate narrowing of the carotid bulb. There is extensive calcified atherosclerotic plaque formation of the origin of the left internal carotid artery with an estimated stenosis of greater than 70%. Normal visualized cervical portion of the left internal carotid artery. There is mild atherosclerotic plaque formation of the origin of the left external carotid artery with less than 50% cross sectional diameter stenosis. VERTEBRAL ARTERIES: Focal calcific plaquing with moderate stenosis suggested at the ostium of the small-caliber 1-2 mm right vertebral artery (series 602 image 68). There is also moderate atherosclerotic narrowing at the ostium of the larger caliber 4.5 mm left vertebral artery (series 602 image 69). Occasional mild calcific plaquing of the cervical segment of the left vertebral artery without stenosis. CT/CTA Neck W/WO Contrast IMPRESSION: 1. Extensive calcific atherosclerotic plaque in the left carotid artery bifurcation with greater than 70% narrowing of the distal common carotid artery and greater than 70% ostial stenosis of the internal carotid artery. 2. Atherosclerotic calcification at the right carotid artery bifurcation without significant internal carotid artery stenosis. 3. Moderate atherosclerotic stenoses at the ostia of both right left vertebral arteries. The right vertebral artery is diminutive in caliber, while the dominant left vertebral artery is approximately 4.5 mm diameter. Electronically Signed: Jonathan Sotelo MD at 19:28 EST , Service support , CC: Elmer Barrear DO; Neto Alberto MD Suspension Cord Tier: Signed CTA HEAD W/WO Observed: 05/29/2018 Status: F Source: [facility] CONTRAST 2:[address] [facility] Imaging Services [address] [place] [address] CTA Head W/WO Contrast MR#: [id number] Acct: [id number] Name: KAMILLA DICKSON Rep #: [id number] : 1950 M 67 From: William Sotelo MD PCP: Neto Alberto MD Status: ADM IN Study: CTA Head W/WO Contrast Date of Exam: 05/29/18 Exam# [id number] Ordering Dr: Elmer Barrera DO STUDY: CTA OF THE BRAIN REASON FOR EXAM: Male, 67 years old. Right hemispheric stroke. RADIATION DOSAGE (If Supplied By Facility): CTDIvol = ( 22.96 ) mGy, DLP = ( 629.69 ) mGycm TECHNIQUE: CT angiography was performed with a multi-detector CT scanner. Data acquisition was obtained from the skull base through the vertex following intravenous administration of 100 ml of Isovue-300. MIP images were reconstructed from the axial data set. Post-processing of the angiographic images was performed, with multiplanar reformation and 3D reconstruction. Individualized dose optimization techniques were used for this CT. COMPARISON: MRA brain 1228 hours. FINDINGS: There are atherosclerotic calcifications of the vertical segments of the bilateral petrous carotid arteries with greater than 70% stenosis on the right. Approximate 50% narrowing is suggested on the left. There is calcified plaque formation of the right cavernous carotid artery, with a mild stenosis (less than 25%). There is calcified plaque formation of the left cavernous carotid artery, with a mild stenosis (less than 25%). Normal A1 segment of the right anterior cerebral artery. Normal A1 segment of the left anterior cerebral artery. Normal intact anterior communicating artery (ACOM) on series 2 image 191. Normal bilateral A2 segments of the anterior cerebral arteries. Normal M1 and M2 segments of the right middle cerebral artery, with a normal M1 bifurcation. Normal M1 and M2 segments of the left middle cerebral artery, with a normal M1 bifurcation. There is non-visualization of the right posterior communicating artery (PCOM). There is non-visualization of the left posterior communicating artery (PCOM). The right vertebral artery is severely atretic or occluded after takeoff of the posterior inferior cerebellar (PICA) artery branch. The dominant, patent left vertebral artery shows atherosclerotic calcification just above the foramen magnum with less than 50% stenosis. Normal basilar artery with a normal basilar bifurcation. The visualized bilateral superior cerebellar (SCA) arteries are normal. There is mild to moderate tapering of the distal P1 segment of the right posterior cerebral artery. Normal P1 segment of the left posterior cerebral artery. Normal P2 and visualized P3 segments of the bilateral posterior cerebral arteries. Curved, fingerlike projection from the confluence of the left vertical petrous segment to the proximal carotid siphon (series 601 image 56), extending towards the sella turcica may be a saccular aneurysm. There is no demonstrated abnormality of the visualized brain. CT/CTA Head W/WO Contrast IMPRESSION: 1. Atherosclerotic calcifications of the vertical petrous segments of the internal carotid arteries with greater than 70% stenosis on the right and approximately 50% narrowing on the left. 2. Additional calcific plaquing in the cavernous siphons of the internal carotid arteries with less than 25% narrowing. 3. Question of curved, fingerlike 5 mm projection/aneurysm from the confluence of the vertical left petrous segment and proximal carotid siphon. This was not apparent on the MRA exam, and may be summation artifact 4. The anterior intracranial arterial circulation is otherwise intact. 5. Atretic or occluded distal right vertebral artery. The dominant left vertebral artery shows less than 50% atherosclerotic narrowing, perfusing the patent basilar artery. 6. Mild to moderate tapering of the distal P1 segment of the right posterior cerebral artery. The P2 and visualized distal P3 segments as well as left posterior cerebral artery are patent. Electronically Signed: Jonathan Sotelo MD at 19:33 EST , Service support , CC: Elmer Barrera DO; Neto Alberto MD Suspension Cord Tier: Signed TROPONIN-I Collected: 05/29/2018 Status: F Source: JONATAN 10:[address] [facility] TYPE CODE TESTS RESULT OUT OF RANGE REFERENCE UNITS LAB L501.4010 <0.045 ng/mL Normal 0.036 TROPONIN-I Result Comment: TROPONIN-I EXPECTED VALUES <0.045 Negative 0.045 - 0.590 Consistent with Cardiac Damage > OR = 0.600 Critical Value Not every elevated troponin is indicative of [place]. These values should be used with clinical judgement in examining the patient's clinical picture for diagnosis. To establish a diagnosis of [place] versus myocardial injury, there must be a demonstrated rise and/or fall in the troponin values, in addition to ischemic symptoms, EKG changes, new regional wall motion abnormality, and/or angiographical evidence. PLEASE NOTE: REFERENCE RANGES EDITED 17 Performed By: #### L501.4010 #### [facility] [address] [place], [address] MRA HEAD ONLY WITHOUT Observed: 05/29/2018 Status: F Source: [facility] CONTRAST 10:[address] [facility] Imaging Services [address] [place] [address] MRA Head ONLY without Contrast MR#: [id number] Acct: [id number] Name: KAMILLA DICKSON Rep #: [id number] : 1950 M 67 From: Vanessa Dillard PCP: Neto Alberto MD Status: ADM IN Study: MRA Head ONLY without Contrast Date of Exam: 05/29/18 Exam# [id number] Ordering Dr: Madeleine Jean-Baptiste STUDY: MRA OF THE HEAD WITHOUT CONTRAST REASON FOR EXAM: Male, 67 years old. cva, slurred speech,lt sided weakness, lt facial droop. TECHNIQUE: 3-D vrmt-wr-pxpuuu (TOF) imaging was performed with MIPs. The study was performed unenhanced. COMPARISON: None. FINDINGS: Normal bilateral petrous carotid arteries. There is atheromatous plaque formation of the right cavernous carotid artery, with a severe stenosis (greater than 75%). Normal left cavernous carotid artery with a normal supraclinoid bifurcation. Normal right A1 segments of the anterior cerebral artery. Normal left A1 segments of the anterior cerebral artery. Normal intact anterior communicating artery (ACOM). Normal bilateral A2 segments of the anterior cerebral arteries. Normal right M1 and M2 segments of the middle cerebral arteries, with a normal M1 bifurcation. Normal left M1 and M2 segments of the middle cerebral arteries, with a normal M1 bifurcation. There is non-visualization of the right posterior communicating artery (PCOM). There is non-visualization of the left posterior communicating artery (PCOM). There is a small atretic right vertebral artery with a dominant left vertebral artery. Normal basilar artery with a normal basilar bifurcation. Normal bilateral posterior cerebral arteries. There is no demonstrated aneurysm of the [place]. There is no major vessel occlusion or hemodynamically significant stenosis. There is no demonstrated abnormality of the visualized brain. MRI/MRA Head ONLY without Contrast IMPRESSION: Greater than 75% stenosis of the right cavernous carotid artery. Further evaluation with CTA can be obtained. Electronically Signed: Vanessa Dillard MD at 13:51 EST Tel , Service support , CC: KAI Jean-Baptiste; Neto Alberto MD Suspension Cord Tier: Signed MRA NECK WITHOUT Observed: 05/29/2018 Status: F Source: [facility] CONTRAST 10:[address] [facility] Imaging Services [address] [place] [address] MRA Neck without Contrast MR#: [id number] Acct: [id number] Name: KAMILLA DICKSON Rep #: [id number] : 1950 M 67 From: Vanessa Dillard PCP: Neto Alberto MD Status: ADM IN Study: MRA Neck without Contrast Date of Exam: 05/29/18 Exam# [id number] Ordering Dr: Madeleine Jean-Baptiste STUDY: MRA NECK WITHOUT CONTRAST REASON FOR EXAM: Male, 67 years old. cva, slurred speech,lt sided weakness, lt facial droop. TECHNIQUE: Source images were obtained, MIPs were performed. The study was performed unenhanced. Technologist Notes Only 1 set of images was completed. Pt refused further imaging d/t SOB COMPARISON: None. FINDINGS: RIGHT CAROTID ARTERIES: Antegrade flow within the right common carotid artery (CCA). Antegrade flow within the right carotid bulb. Antegrade flow within the right internal carotid (ICA) artery. Antegrade flow within the visualized cervical portion of the right internal carotid artery. LEFT CAROTID ARTERIES: There is a long segment narrowing of the distal common carotid artery with areas of greater than 70% stenosis. There is moderate atherosclerotic plaque formation with moderate narrowing of the carotid bulb. There is extensive atherosclerotic plaque formation of the origin of the left internal carotid artery with an estimated stenosis of greater than 70%. Antegrade flow within the visualized cervical portion of the left internal carotid artery. VERTEBRAL ARTERIES: There is antegrade flow within the bilateral vertebral arteries with a small right vertebral artery, and a dominant left vertebral artery. MRI/MRA Neck without Contrast IMPRESSION: High-grade stenosis of the left common and internal carotid artery. Further evaluation with CTA is recommended. Electronically Signed: Vanessa Dillard MD at 13:55 EST Tel , Service support , CC: KAI Jean-Baptiste; Neto Alberto MD Suspension Cord Tier: Signed BRAIN WITHOUT Observed: 05/29/2018 Status: F Source: [facility] CONTRAST 10:[address] [facility] Imaging Services [address] [place] [address] Brain without Contrast MR#: [id number] Acct: [id number] Name: KAMILLA DICKSON Rep #: [id number] : 1950 M 67 From: Vanessa Dillard PCP: Neto Alberto MD Status: ADM IN Study: Brain without Contrast Date of Exam: 05/29/18 Exam# [id number] Ordering Dr: Madeleine Jean-Baptiste STUDY: MRI BRAIN WITHOUT CONTRAST REASON FOR EXAM: Male, 67 years old. cva, slurred speech,lt sided weakness, lt facial droop. TECHNIQUE: Standardized multiplanar fat and water weighted pulse sequences were obtained. COMPARISON: 05/29/2018 CT of the head FINDINGS: There is mild cerebral atrophy with widening of the extra- axial spaces and ventricular dilatation. There are a limited number of small white matter hyperintensities, distributed throughout the deep white matter tracts of the cerebral hemispheres, consistent with mild chronic white matter ischemic changes. There is restricted diffusion involving the right frontoparietal region. There is focus of restricted diffusion at the posterior temporal lobe as well. There is a drop of signal on ADC map, consistent with acute infarctions. Normal bilateral basal ganglia. Normal thalami. There is no extra-axial fluid accumulation. Normal flow voids within the major intracranial circulation suggesting patency by spin echo criteria. Normal sella turcica, pituitary gland, infundibular stalk, optic chiasm and hypothalamus. Normal tectal plate and pineal gland. There are chronic white matter ischemic changes of the [place]. The midbrain and medulla are otherwise normal. Normal cerebellum. Normal basal cisterns. Normal bilateral temporal bones. Normal bilateral internal auditory canals. MRI/Brain without Contrast IMPRESSION: Acute right MCA infarctions. N.B. : The above information has been verbally conveyed by Vanessa Dillard MD to Madeleine Jean-Baptiste NP, on 05/29/2018 13:58:04 (ET). Electronically Signed: Vanessa Dillard MD at 13:49 EST Tel , Service support , CC: KAI Jean-Baptiste; Neto Alberto MD Suspension Cord Tier: Signed PROTHROMBIN TIME W/INR Collected: 05/29/2018 Status: F Source: RAMSAY 8:[address] [facility] Order Comment: REDRAW. PREVIOUS SPECIMEN REJECTED DUE TO HEMOLYSIS. 05/29/18 08Jamee Lynch. TYPE CODE TESTS RESULT OUT OF RANGE REFERENCE UNITS LAB L300.4150 11.7-14.9 SECONDS Normal PROTIME 14.0 LAB L300.4200 Normal INR 1.1 Performed By: #### L300.3900, L300.4310 #### [facility] [address] [place], [address] PARTIAL THROMBOPLAST Collected: 05/29/2018 Status: F Source: RAMSAY TIME 8:[address] [facility] Order Comment: REDRAW. PREVIOUS SPECIMEN REJECTED DUE TO HEMOLYSIS. 05/29/18 Alonzo Lynch. TYPE CODE TESTS RESULT OUT OF RANGE REFERENCE UNITS LAB L300.4310 24.1-36.2 Seconds Normal PTT 28.9 Performed By: #### L300.3900, L300.4310 #### [facility] [address] [place], [address] CHEST 1 VIEW Observed: 05/29/2018 Status: F Source: RAMSAY (PORTABLE) 8:[address] [facility] Imaging Services [address] [place] [address] Chest 1 View (Portable) MR#: [id number] Acct: [id number] Name: KAMILLA DICKSON Rep #: [id number] : 1950 M 67 From: Navin Matt MD PCP: Neto Alberto MD Status: REG ER Study: Chest 1 View (Portable) Date of Exam: 05/29/18 Exam# [id number] Ordering Dr: Armani Servin MD STUDY: X-RAY CHEST REASON FOR EXAM: Male, 67 years old. Bilateral rales. TECHNIQUE: Single AP portable view of the chest. COMPARISON: Comparison is made with prior study dated December 16, 2017. FINDINGS: EKG electrodes are seen. Mild increased markings at the right lung base suggestive of right basilar atelectasis. There is no demonstrated pleural abnormality. Sternal cerclage wires are present from a prior sternotomy. A metallic clip is seen in the region of the aortic valve. Normal mediastinum and katelyn. Normal visualized pulmonary arteries. There is atherosclerotic calcification of the aortic arch with tortuosity. There are diffuse degenerative changes of the visualized thoracic spine. Normal visualized ribs, clavicles, and shoulders. There is no demonstrated abnormality of the visualized soft tissue structures of the upper abdomen. RAD/Chest 1 View (Portable) IMPRESSION: Increased markings at the right lung base suggestive of right basilar atelectasis. Electronically Signed: Navin Matt MD at 8:27 EST Tel [phone], Service support , CC: Neto Alberto MD; Armani Servin MD Suspension Cord Tier: Signed CBC W/DIFF, AUTOMATED Collected: 05/29/2018 Status: F Source: [facility]Y 7:[address] [facility] TYPE CODE TESTS RESULT OUT OF RANGE REFERENCE UNITS LAB L100.1000 4.4-11.0 K/mm3 High WBC 11.1 LAB L100.1200 4.6-6.2 M/mm3 Low RBC 4.42 LAB L100.1300 13.0-16.5 g/dl Normal HGB 13.4 LAB L100.1400 40-54 % Normal HCT 42.0 LAB L100.1500 80-94 fL High MCV 95.0 LAB L100.1600 27.0-32.0 pg Normal MCH 30.3 LAB L100.1700 32-36 g/gl Low MCHC 31.9 LAB L100.1810 11.6-14.6 % Normal RDW CV 14.0 LAB L100.1820 35.1-43.9 fl High RDW SD 48.7 LAB L100.1900 150-450 K/mm3 Normal PLT 242 LAB L100.2000 6.2-12.0 fl Normal MPV 10.7 LAB L100.2100 47-70 % High NEUT% 73.9 LAB L100.2200 19-41 % Low LY% 12.2 LAB L100.2300 0-10 % High MONO% 10.6 LAB L100.2400 0-5 % Normal EO% 2.3 LAB L100.2500 0-1 % Normal BASO% 0.7 LAB L100.2550 0.0-0.9 % Normal IM GRAN % 0.300 Result Comment: IG% - Immature Granulocytes (promyelocytes, myelocytes and metamyelocytes) > 1% indicates that a LEFT SHIFT is Present. LAB L100.2620 2.0-7.7 X10 3/uL High Absolute Neut 8.2 LAB L100.2720 0.83-4.51 X10 3/ul Normal Absolute Lymph 1.35 Performed By: #### L100.0100 #### [facility] [address] [place], [address] BASIC METABOLIC Collected: 05/29/2018 Status: F Source: [facility] PROFILE ([facility]) 7:[address] [facility] Order Comment: 'TROP' Serial specimen #1, #2, #3, or #4: 1 TYPE CODE TESTS RESULT OUT OF RANGE REFERENCE UNITS LAB L501.0100 74-106 mg/dL Normal GLU 99 Result Comment: Please note revised GLUCOSE reference range effective 2017. LAB L501.1000 7-18 mg/dL Normal BUN 17 LAB L501.1100 0.70-1.30 mg/dL Normal CREAT,SERUM 0.96 Result Comment: The validity of the calculated GFR AND GFRAA in patients over 70 years has not been determined. Clinical correlation is essential. LAB L501.1110 >60 mL/min Normal EST GFR 82 Result Comment: Non- GFR Calc LAB L501.1115 >60 mL/min Normal EST GFR - AA 99 Result Comment: GFR Calc LAB L501.1255 ml/min Normal Estimated CRCL 58.45 LAB L501.1300 10-20 RATIO Normal BUN/CRE 17.7 LAB L501.2200 8.5-10 mg/dL Normal .1 CA 8.8 LAB L501.5300 136-14 mmol/L Normal 5 NA 143 LAB L501.5600 3.5-5. mmol/L Normal 1 K 3.9 LAB L501.5900 98-107 mmol/L High CL 109 LAB L501.6100 21.0-3 mmol/L Normal 2.0 CO2 28.0 LAB L501.6200 5-15 Normal GAP 6 Performed By: #### L500.2500, L501.4010 #### [facility] [address] [place], [place], [address] TROPONIN-I Collected: 05/29/2018 Status: F Source: [facility]AT[facility] 7:[address] [facility] Order Comment: 'TROP' Serial specimen #1, #2, #3, or #4: 1 TYPE CODE TESTS RESULT OUT OF RANGE REFERENCE UNITS LAB L501.4010 <0.045 ng/mL Normal 0.040 TROPONIN-I Result Comment: TROPONIN-I EXPECTED VALUES <0.045 Negative 0.045 - 0.590 Consistent with Cardiac Damage > OR = 0.600 Critical Value Not every elevated troponin is indicative of [place]. These values should be used with clinical judgement in examining the patient's clinical picture for diagnosis. To establish a diagnosis of [place] versus myocardial injury, there must be a demonstrated rise and/or fall in the troponin values, in addition to ischemic symptoms, EKG changes, new regional wall motion abnormality, and/or angiographical evidence. PLEASE NOTE: REFERENCE RANGES EDITED 17 Performed By: #### L500.2500, L501.4010 #### [facility] [address] [place], [address] BRAIN/HEAD WITHOUT Observed: 05/29/2018 Status: F Source: [place] CONTRAST 7:[address] [facility] REPOSITORY [facility] Imaging Services [address] [place] [address] Brain/Head without Contrast MR#: [id number] Acct: [id number] Name: KAMILLA DICKSON Akil Rep #: [id number] : 1950 M 67 From: Ricardo Zapata MD PCP: Neto Alberto MD Status: PRE ER Study: Brain/Head without Contrast Date of Exam: 05/29/18 Exam# [id number] Ordering Dr: Armani Servin MD STUDY: CT BRAIN WITHOUT CONTRAST REASON FOR EXAM: Male, 67 years old. Slurred speech. RADIATION DOSAGE (If Supplied By Facility): CTDIvol = ( 44.99 ) mGy, DLP = ( 829.85 ) mGycm TECHNIQUE: Transaxial CT imaging of the brain was performed without administration of intravenous contrast material. Individualized dose optimization techniques were used for this CT. COMPARISON: 06/03/2016. FINDINGS: Normal soft tissue structures. Normal calvarium. Normal size ventricles and extra-axial spaces for the patient's age. Normal white matter tracts of the cerebral hemispheres. Normal basal ganglia and thalami. Normal brainstem. Normal cerebellum. There is atherosclerotic calcification of the left vertebral and bilateral cavernous carotid arteries. There is no intracranial hemorrhage. There are no findings of an acute ischemic infarction. There is mucoperiosteal thickening, consistent with mild chronic sinusitis of bilateral ethmoid and right maxillary sinuses. There is no evidence for acute sinusitis. CT/Brain/Head without Contrast IMPRESSION: Atherosclerotic calcifications of the vertebral and cavernous carotid arteries. No demonstrated acute intracranial process. N.B. : The above information has been verbally conveyed by Ricardo Zapata MD to Dr Juan Carlos MD, on 05/29/2018 07:44:44 (ET). Electronically Signed: Ricardo Zapata MD at 7:37 EST , Service support , CC: Neto Alberto MD; rAmani Servin MD Suspension Cord Tier: Signed BEDSIDE GLUCOSE Collected: 05/29/2018 Status: F Source: [place] 7:[address] [facility] REPOSITORY TYPE CODE TESTS RESULT OUT OF RANGE REFERENCE UNITS LAB L501.080 70-110 mg/dL Normal BEDSIDE GLU 96 Result Comment: MANAGEMENT OF PATIENT CARE PER NURSING PROTOCOL Performed By: #### L501.080 #### [facility] Point of Care [address] [place] [address] PROGRESS Observed: 05/17/2018 Status: COMPLETED Source: [place] 11:16 AM [facility] [place] REPOSITORY HNO ID: [id number] Author: Shira Delarosa Service: (none) Author Type: Physician Service Center Specialist Type: Progress Notes Filed: 05/17/2018 12:25 PM Note Text: [facility] [place], 05/17/18: HPI: The patient is here for follow up of COPD. The last Pulmonary Clinic visit was 07/14/16. Since then the patient has not required ED care for exacerbation. There has been no hospital admission for exacerbation. Claims to be consistently compliant with prescribed maintenance Rx: nebulized albuterol 4-6 times daily, ipratropium 4 times daily, budesonide twice daily. Daily productive cough. Sputum volume and color have not changed. No hemoptysis or pleuritic chest pain. Wheezing. No dyspnea at rest. Exertional dyspnea has progressively worsened since office visit in July 2016. Wears 2 L supplemental oxygen at night. DME: [employer]. PMH: Updated with patient today. FAMH: Updated with patient today. SOCH: Updated with patient today. Continues to smoke 0.5 pack per day. Immunization History Administered Date(s) Administered Hepatitis B Adult 11/21/2014 12/26/2014 05/29/2015 Influenza Seasonal - High Dose - Age 65+ 01/13/2015 01/07/2016 02/05/2017 Influenza Seasonal Inj Age 3+ 03/26/2014 01/11/2016 Influenza Vaccine, Split-Non Spec 04/16/2013 Pneumococcal-13 Vac Conjugate 10/29/2014 Pneumovax 09/08/2008 08/22/2013 Zostavax 05/29/2014 ROS: General: Generally feels good. Appetite good. Weight stable. Eyes, Ears, nose, throat: No post nasal drip, rhinorrhea, purulent nasal discharge, epistaxis. No hoarseness. Vision stable. Cardiac: No angina. Lower extremity edema. 2 pillow orthopnea. GI: No heartburn, dysphagia, diarrhea. 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 Musculoskeletal: No pain. Neuro: No headache, focal weakness, tremor. Skin: No rash. Otherwise negative. Allergies were reviewed and updated, and medications were reconciled with the patient. PHYSICAL EXAMINATION: BP 118/58 Pulse 94 Resp 17 Wt 149 lb (67.6kg) SpO2 91% O2: RA. Gen: No acute distress. Cooperative with examination. ENT: Oral hygeine and dentition good. Pharynx clear. No halitosis. Resp: No stridor, accessory respiratory muscle use, supra- sternal or intercostal retractions. No wheezes, crackles. CV: Regular rythm. Heart tones normal. Radial pulses normal. Abd: Non distended. MSK: No kyphoscoliosis. Ext: Warm and well perfused. No clubbing, cyanosis. Trace bilateral edema. Skin: No rash, ecchymoses. Neuro: Mental status normal. Affect normal. No tremor. DATA REVIEW: DATE: 05/17/18 FVC 2.11 (67 % pred) FEV1 0.62 (27 % pred) FEV1/FVC 0.29 DATE: 07/14/2016 FVC 2.07 (61 % predicted) FEV1 0.82 (33 % predicted) FEV1/FVC 0.40 ? DATE: 06/10/2016 FVC 1.91 (56 % predicted) FEV1 0.59 (24 % predicted) FEV1/FVC 0.31 ? DATE: 03/10/2016 FVC 2.36 (70 % predicted) FEV1 0.88 (36 % predicted) FEV1/FVC 0.37 ? IMPRESSION/RECOMMEND: COPD, severe, significant decline in FEV1 today. 1. I re-addressed the pathophysiology of chronic bronchitis, emphysema, and COPD; and reviewed the management of this condition as outlined in the GOLD and ATS guidelines, including: smoking cessation, Pneumococcal and annual Influenza vaccination, bronchodilators, inhaled corticosteroids, antibiotics, exercise/rehabilitation, and oxygen. 2. I also again discussed mechanisms of action of medications, alternatives, and potential side effects of treatment. 3. Continue current maintenance Rx: Albuterol and Ipratropium via nebulizer, 4 times daily. Budesonide twice daily. 4. Combivent (Ipratropium and Albuterol) as needed every 6 hours for wheezing/shortness of breath while working and away from home. 5. Based on last oximetry, you require 2 L supplemental oxygen with exertion. Check oximetry with ambulation at next office visit. 6. Up to date on influenza and pneumococcal vaccines. 7. Re-assess in 6-8 weeks with oximetry. Tobacco Use Disorder. Discussed risks of smoking and strongly urged patient to quit as soon as possible. It is imperative that you stop smoking to preserve lung function. I addressed the questions of the patient, and he expressed understanding and acceptance of my answers. Shira Delarosa PA-C [facility] [place] [facility] [place] [address] [place] [address] CNOV Observed: 05/17/2018 Status: COMPLETED Source: [place] 11:00 AM [facility] REPOSITORY Office Visit (PULMWS) KAMILLA DICKSON ([id number]) 1950 M Date Time Provider Department 05/17/18 11:00 AM SHIRA DELAROSA During your visit today, we recorded the following information about you: Pulse Respiration Blood pressure Weight 94/minute 17/minute 118/58 67.6 kg Shira Delarosa PA-C 05/17/2018 12:25 PM Signed [facility] [place], 05/17/18: HPI: The patient is here for follow up of COPD. The last Pulmonary Clinic visit was 07/14/16. Since then the patient has not required ED care for exacerbation. There has been no hospital admission for exacerbation. Claims to be consistently compliant with prescribed maintenance Rx: nebulized albuterol 4-6 times daily, ipratropium 4 times daily, budesonide twice daily. Daily productive cough. Sputum volume and color have not changed. No hemoptysis or pleuritic chest pain. Wheezing. No dyspnea at rest. Exertional dyspnea has progressively worsened since office visit in July 2016. Wears 2 L supplemental oxygen at night. DME: [employer]. PMH: Updated with patient today. FAMH: Updated with patient today. SOCH: Updated with patient today. Continues to smoke 0.5 pack per day. Immunization History Administered Date(s) Administered Hepatitis B Adult 11/21/2014 12/26/2014 05/29/2015 Influenza Seasonal - High Dose - Age 65+ 01/13/2015 01/07/2016 02/05/2017 Influenza Seasonal Inj Age 3+ 03/26/2014 01/11/2016 Influenza Vaccine, Split-Non Spec 04/16/2013 Pneumococcal-13 Vac Conjugate 10/29/2014 Pneumovax 09/08/2008 08/22/2013 Zostavax 05/29/2014 ROS: General: Generally feels good. Appetite good. Weight stable. Eyes, Ears, nose, throat: No post nasal drip, rhinorrhea, purulent nasal discharge, epistaxis. No hoarseness. Vision stable. Cardiac: No angina. Lower extremity edema. 2 pillow orthopnea. GI: No heartburn, dysphagia, diarrhea. 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 Musculoskeletal: No pain. Neuro: No headache, focal weakness, tremor. Skin: No rash. Otherwise negative. Allergies were reviewed and updated, and medications were reconciled with the patient. PHYSICAL EXAMINATION: BP 118/58 Pulse 94 Resp 17 Wt 149 lb (67.6kg) SpO2 91% O2: RA. Gen: No acute distress. Cooperative with examination. ENT: Oral hygeine and dentition good. Pharynx clear. No halitosis. Resp: No stridor, accessory respiratory muscle use, supra- sternal or intercostal retractions. No wheezes, crackles. CV: Regular rythm. Heart tones normal. Radial pulses normal. Abd: Non distended. MSK: No kyphoscoliosis. Ext: Warm and well perfused. No clubbing, cyanosis. Trace bilateral edema. Skin: No rash, ecchymoses. Neuro: Mental status normal. Affect normal. No tremor. DATA REVIEW: DATE: 05/17/18 FVC 2.11 (67 % pred) FEV1 0.62 (27 % pred) FEV1/FVC 0.29 DATE: 07/14/2016 FVC 2.07 (61 % predicted) FEV1 0.82 (33 % predicted) FEV1/FVC 0.40 ? DATE: 06/10/2016 FVC 1.91 (56 % predicted) FEV1 0.59 (24 % predicted) FEV1/FVC 0.31 ? DATE: 03/10/2016 FVC 2.36 (70 % predicted) FEV1 0.88 (36 % predicted) FEV1/FVC 0.37 ? IMPRESSION/RECOMMEND: COPD, severe, significant decline in FEV1 today. 1. I re-addressed the pathophysiology of chronic bronchitis, emphysema, and COPD; and reviewed the management of this condition as outlined in the GOLD and ATS guidelines, including: smoking cessation, Pneumococcal and annual Influenza vaccination, bronchodilators, inhaled corticosteroids, antibiotics, exercise/rehabilitation, and oxygen. 2. I also again discussed mechanisms of action of medications, alternatives, and potential side effects of treatment. 3. Continue current maintenance Rx: Albuterol and Ipratropium via nebulizer, 4 times daily. Budesonide twice daily. 4. Combivent (Ipratropium and Albuterol) as needed every 6 hours for wheezing/shortness of breath while working and away from home. 5. Based on last oximetry, you require 2 L supplemental oxygen with exertion. Check oximetry with ambulation at next office visit. 6. Up to date on influenza and pneumococcal vaccines. 7. Re-assess in 6-8 weeks with oximetry. Tobacco Use Disorder. Discussed risks of smoking and strongly urged patient to quit as soon as possible. It is imperative that you stop smoking to preserve lung function. I addressed the questions of the patient, and he expressed understanding and acceptance of my answers. Shira Delarosa PA-C [facility] [place] [facility] [address] [place] [phone] Shira Delarosa PA-C 05/17/2018 12:25 PM Signed COPD, severe, significant decline in FEV1 today. 1. I re-addressed the pathophysiology of chronic bronchitis, emphysema, and COPD; and reviewed the management of this condition as outlined in the GOLD and ATS guidelines, including: smoking cessation, Pneumococcal and annual Influenza vaccination, bronchodilators, inhaled corticosteroids, antibiotics, exercise/rehabilitation, and oxygen. 2. I also again discussed mechanisms of action of medications, alternatives, and potential side effects of treatment. 3. Continue current maintenance Rx: Albuterol and Ipratropium via nebulizer, 4 times daily. Budesonide twice daily. 4. Combivent (Ipratropium and Albuterol) as needed every 6 hours for wheezing/shortness of breath while working and away from home. 5. Based on last oximetry, you require 2 L supplemental oxygen with exertion. Check oximetry with ambulation at next office visit. 6. Up to date on influenza and pneumococcal vaccines. 7. Re-assess in 6-8 weeks with oximetry. Tobacco Use Disorder. Discussed risks of smoking and strongly urged patient to quit as soon as possible. It is imperative that you stop smoking to preserve lung function. Referring Provider: COURTNEY BATISTA [[id number]] Allergies As of Date: 05/17/2018 Noted Allergy Reaction NO KNOWN ALLERGIES 01/13/2017 14 - Other: See Comments Date Reviewed: 05/17/2018 Reviewed by: Shira Delarosa - Fully Assessed Primary Visit Diagnosis:Chronic obstructive pulmonary disease, unspecified COPD type (HCC) [J44.9] Order(s):SPIROMETRY BASELINE ONLY [4258631] Order #: [id number] FUTURE albuterol (PROVENTIL) 2.5 mg /3 mL (0.083 %) nebulizer solutionUse 3 mL via nebulizer every 4 hours as needed for Wheezing/Shortness of Breath. Use over 5-15minutes.Disp: 180 VialRfl: 3 budesonide (PULMICORT) 0.5 mg/2 mL nebulizer solutionUse 2 mL via nebulizer twice daily.Disp: 60 VialRfl: 6 ipratropium (ATROVENT) 0.02 % nebulizer solutionUse 2.5 mL via nebulizer four times daily.Disp: 120 VialRfl: 6 Nebulizer and Compressor For Neb (PORTABLE NEBULIZER SYSTEM) devi1 Each as directed.Disp: 1 DeviceRfl: 0 ipratropium-albuterol (COMBIVENT RESPIMAT) 20-100 mcg/actuation mistInhale 1 Inhalation as instructed every 6 hours as needed (wheezing/shortness of breath).Disp: 3 CartridgeRfl: 3 OXIMETRY WITH AMBULATION [[id number]] Order #: [id number] FUTURE Prescriptions as of 05/17/2018 Sig: ALBUTEROL SULFATE 2.5 MG/3 ML* Use 3 mL via nebulizer every * BUDESONIDE 0.5 MG/2 ML SUSPEN* Use 2 mL via nebulizer twice * IPRATROPIUM BROMIDE 0.02 % SO* Use 2.5 mL via nebulizer four* OMEPRAZOLE 20 MG CAPSULE,YOKO* Take 1 capsule by mouth daily* ALLOPURINOL 100 MG TABLET Take 1 tablet by mouth once d* ATORVASTATIN 10 MG TABLET Take 1 tablet by mouth daily * METOPROLOL SUCCINATE ER 25 MG* Take 1 tablet by mouth once d* SPIRONOLACTONE 25 MG TABLET Take 0.5 tablets by mouth onc* HYDROXYCHLOROQUINE 200 MG TAB* TAKE 2 TABLETS BY MOUTH ONCE * ALENDRONATE 70 MG TABLET Take 1 tablet by mouth once e* TAMSULOSIN 0.4 MG CAPSULE Take 1 capsule by mouth once * PREGABALIN 150 MG CAPSULE Take 1 capsule by mouth twice* BACLOFEN 10 MG TABLET Take 1 tablet by mouth twice * COLCHICINE 0.6 MG CAPSULE Take 1 capsule by mouth twice* Patient taking differently: Take 0.6 mg by mouth as neede* NITROGLYCERIN 0.4 MG SUBLINGU* Dissolve 1 tablet under the t* CICLOPIROX 8 % TOPICAL SOLUTI* Apply 1 application to affect* ASCORBIC ACID (VITAMIN C) 500* Take 2 tablets by mouth once * CHOLECALCIFEROL (VITAMIN D3) * Take 1 tablet by mouth once d* ASPIRIN 81 MG CHEWABLE TABLET Take 2 tablets by mouth once * THERAPEUTIC MULTIVITAMIN TABL* Take 1 tablet by mouth daily * NEBULIZER AND COMPRESSOR 1 Each as directed. IPRATROPIUM 20 MCG-ALBUTEROL * Inhale 1 Inhalation as instru* NICOTINE 14 MG/24 HR DAILY TR* Apply 1 Patch as directed nicol* COLCRYS 0.6 MG TABLET Take 0.6 mg by mouth twice da* TRAMADOL 50 MG TABLET Take 50 mg by mouth four time* COMPOUNDED PRESCRIPTION Aerosol nebulizer. Dx COPD. Problem List As Of Date 05/17/2018 Noted Resolved COPD (chronic obstructive pulmonary disease) [J*INVALID FOR* More... Essential hypertension [I10] INVALID FOR* More... Chronic atrial fibrillation (HCC) [I48.2] INVALID FOR*06/15/2016 More... Hyperlipidemia [E78.5] INVALID FOR* More... Degenerative disc disease [VFD1896] INVALID FOR* Lumbar disc disease [M51.9] INVALID FOR* Spinal stenosis [M48.00] INVALID FOR* More... Coronary artery disease [I25.10] INVALID FOR* Neoplasm of uncertain behavior of skin: R/O Ski*INVALID FOR* Actinic Keratoses: Premalignant AK's [L57.0] INVALID FOR* Other seborrheic keratosis [L82.1] INVALID FOR* Actinic skin damage [L57.8] INVALID FOR* Melanocytic nevus of trunk [D22.5] INVALID FOR* Xerosis cutis [L85.3] INVALID FOR* Skin tag [L91.8] INVALID FOR* Open wound(s) (multiple) of unspecified site(s)*INVALID FOR* SUMMARY [V999.95] INVALID FOR* More... CAD (coronary artery disease), [place] coronary *INVALID FOR* More... Bronchitis [J40] INVALID FOR* More... Preop testing [Z01.818] INVALID FOR*01/17/2014 More... More... Mechanically assisted ventilation (HCC) [Z99.11]INVALID FOR*01/18/2014 More... Hypotension [I95.9] INVALID FOR*01/24/2014 More... Pain [R52] INVALID FOR* More... Leukocytosis [D72.829] INVALID FOR* More... Hyponatremia [E87.1] INVALID FOR* More... 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.1] INVALID FOR* GERD (gastroesophageal reflux disease) [K21.9] INVALID FOR* Osteopenia [M85.80] INVALID FOR* Lumbar stenosis with neurogenic claudication [M*INVALID FOR* Facet arthropathy, lumbar [M47.816] INVALID FOR* Low back pain [M54.5] INVALID FOR*01/29/2015 Cancer of skin, squamous cell [C44.92] INVALID FOR* Osteoporosis [M81.0] INVALID FOR* Spinal stenosis of lumbar region with radiculop*INVALID FOR*01/29/2015 Bilateral low back pain without sciatica [M54.5]INVALID FOR*10/21/2015 Adjustment disorder with mixed anxiety and depr*INVALID FOR* Chronic bilateral low back pain without sciatic*INVALID FOR*10/22/2015 Decreased pulses in feet [R09.89] INVALID FOR* Dehydration [E86.0] INVALID FOR* More... Abnormal echocardiogram [R93.1] INVALID FOR* PVC's (premature ventricular contractions) [I49*INVALID FOR* SVT (supraventricular tachycardia) (HCC) [I47.1]INVALID FOR* Other instructions from your clinician: COPD, severe, significant decline in FEV1 today. 1. I re-addressed the pathophysiology of chronic bronchitis, emphysema, and COPD; and reviewed the management of this condition as outlined in the GOLD and ATS guidelines, including: smoking cessation, Pneumococcal and annual Influenza vaccination, bronchodilators, inhaled corticosteroids, antibiotics, exercise/rehabilitation, and oxygen. 2. I also again discussed mechanisms of action of medications, alternatives, and potential side effects of treatment. 3. Continue current maintenance Rx: Albuterol and Ipratropium via nebulizer, 4 times daily. Budesonide twice daily. 4. Combivent (Ipratropium and Albuterol) as needed every 6 hours for wheezing/shortness of breath while working and away from home. 5. Based on last oximetry, you require 2 L supplemental oxygen with exertion. Check oximetry with ambulation at next office visit. 6. Up to date on influenza and pneumococcal vaccines. 7. Re-assess in 6-8 weeks with oximetry. Tobacco Use Disorder. Discussed risks of smoking and strongly urged patient to quit as soon as possible. It is imperative that you stop smoking to preserve lung function. Prescriptions ordered this encounter Disp Refills Start End ALBUTEROL SULFATE 2.5 MG/3 ML (0.083* 180 * 3 05/17/2018 Route: NEBULIZATION Sig: Use 3 mL via nebulizer every 4 hours as needed for Wheezing/Shortness of Breath. Use over 5-15minutes. BUDESONIDE 0.5 MG/2 ML SUSPENSION FO* 60 V* 6 05/17/2018 Route: NEBULIZATION Sig: Use 2 mL via nebulizer twice daily. IPRATROPIUM BROMIDE 0.02 % SOLUTION * 120 * 6 05/17/2018 Route: NEBULIZATION Sig: Use 2.5 mL via nebulizer four times daily. NEBULIZER AND COMPRESSOR 1 De* 0 05/17/2018 Route: Misc Si Each as directed. IPRATROPIUM 20 MCG-ALBUTEROL 100 MCG* 3 Ca* 3 05/17/2018 Route: INHALATION Sig: Inhale 1 Inhalation as instructed every 6 hours as needed (wheezing/shortness of breath). Medications Discontinued During This Encounter albuterol (PROVENTIL) 2.5 mg /3 mL (* 180 * 3 05/03/2018 05/17/2018 Route: NEBULIZATION -UNSPEC Sig: Use 3 mL via nebulizer every 4 hours as needed for Wheezing/Shortness of Breath. Use over 5-15minutes. Disc: Reason for discontinue is not on file. budesonide (PULMICORT) 0.5 mg/2 mL n* 60 V* 6 01/19/2018 05/17/2018 Route: NEBULIZATION -UNSPEC Sig: Use 2 mL via nebulizer twice daily. Disc: Reason for discontinue is not on file. ipratropium (ATROVENT) 0.02 % nebuli* 120 * 6 12/25/2017 05/17/2018 Route: NEBULIZATION -UNSPEC Sig: Use 2.5 mL via nebulizer four times daily. Disc: Reason for discontinue is not on file. albuterol HFA (PROAIR HFA) 90 mcg/ac* 3 In* 3 12/25/2017 05/17/2018 Route: OTHER Si Puffs every 6 hours as needed. Take as directed Disc: Changing Therapy/Dosage Form Disposition: Return in about 6 weeks (around 06/28/2018). Follow-up and Disposition History Recorded Encounter Status:Closed by SHIRA DELAROSA on 05/17/18 PROGRESS Observed: 05/17/2018 Status: COMPLETED Source: [place] 10:28 AM [facility] [place] REPOSITORY HNO ID: [id number] Author: Abhay Whitaker Service: (none) Author Type: Physician Type: Progress Notes Filed: 05/17/2018 10:43 AM Note Text: Subjective: Patient presents to clinic c/o painful toenails. They state that the nails are especially painful with shoe gear and pressure. Patient states that nails b/l hallux are painful. Patient states the toenails are getting long and are beginning to cut into the other toes. Patient denies diabetes. No other pedal complaints at this time. Patient states no change in medications or medical history since last visit. Objective: Patient presents to clinic ambulating in [facility] Vasc: DP and PT pulses are faint bilateral. CFT is less than 5 seconds bilateral. Skin temperature is warm to cool proximal to distal bilateral. There is mild edema or varicosities noted. Neuro: Protective sensation is decreased to the foot and toes when tested with the 5.07 SWM bilateral. Vibratory sensation is absent at the hallux IPJ bilateral. The hallux is downgoing bilateral. Derm: Nails 1-5 b/l are painful, discolored-yellow, thick, crumbly, dystrophic and with subungal debris. Skin is dry b/l There is small eschar of left 5th toe due to rubbing from toenail. There is callus of b/l hallux. Ortho: Muscle strength is 5/5 for all pedal groups tested. Ankle joint DF is full with the knee extended with no pain or crepitus noted. 1st MPJ ROM is full bilateral. Assessment: (B35.1) Onychomycosis (primary encounter diagnosis) (M79.675) Pain in toe of left foot (M79.674) Pain in toe of right foot (L85.9) Hyperkeratosis (L85.3) Xerosis cutis Plan: Patient was seen and evaluated. Nails 1-5 bilateral were debrided in length and thickness. Small bleed of left 5th toe due to rubbing from toenail. Recommend band aid to left 5th toe. Call if any issues develop. Discussed making follow- up but he will monitor. Callus filed as courtesy. Continue with lotion to feet daily. Patient is to RTC in 3-4 months. Abhay Whitaker DPM PROGRESS Observed: 05/17/2018 Status: COMPLETED Source: [place] 10:10 AM [facility] REPOSITORY HNO ID: [id number] Author: Roxanne Benson Ma Service: (none) Author Type: (none) Type: Progress Notes Filed: 05/17/2018 10:43 AM Note Text: AMB ROOMING INTAKE FLOWSHEET DATA Risk Screening Do you have concerns about personal safety or safety in the home?: No Patient here for nail care. States that he has no pain. CNOV Observed: 05/17/2018 Status: COMPLETED Source: [place] 9:55 AM [facility] REPOSITORY Office Visit (PODIWS) KAMILLA DICKSON ([id number]) 1950 M Date Time Provider Department 05/17/18 9:55 AM ABHAY WHITAKER PODIWS During your visit today, we recorded the following information about you: Roxanne Benson Ma 05/17/2018 10:43 AM Signed AMB ROOMING INTAKE FLOWSHEET DATA Risk Screening Do you have concerns about personal safety or safety in the home?: No Patient here for nail care. States that he has no pain. Abhay Whitaker DPM 05/17/2018 10:43 AM Signed Subjective: Patient presents to clinic c/o painful toenails. They state that the nails are especially painful with shoe gear and pressure. Patient states that nails b/l hallux are painful. Patient states the toenails are getting long and are beginning to cut into the other toes. Patient denies diabetes. No other pedal complaints at this time. Patient states no change in medications or medical history since last visit. Objective: Patient presents to clinic ambulating in [facility] Vasc: DP and PT pulses are faint bilateral. CFT is less than 5 seconds bilateral. Skin temperature is warm to cool proximal to distal bilateral. There is mild edema or varicosities noted. Neuro: Protective sensation is decreased to the foot and toes when tested with the 5.07 SWM bilateral. Vibratory sensation is absent at the hallux IPJ bilateral. The hallux is downgoing bilateral. Derm: Nails 1-5 b/l are painful, discolored-yellow, thick, crumbly, dystrophic and with subungal debris. Skin is dry b/l There is small eschar of left 5th toe due to rubbing from toenail. There is callus of b/l hallux. Ortho: Muscle strength is 5/5 for all pedal groups tested. Ankle joint DF is full with the knee extended with no pain or crepitus noted. 1st MPJ ROM is full bilateral. Assessment: (B35.1) Onychomycosis (primary encounter diagnosis) (M79.675) Pain in toe of left foot (M79.674) Pain in toe of right foot (L85.9) Hyperkeratosis (L85.3) Xerosis cutis Plan: Patient was seen and evaluated. Nails 1-5 bilateral were debrided in length and thickness. Small bleed of left 5th toe due to rubbing from toenail. Recommend band aid to left 5th toe. Call if any issues develop. Discussed making follow-up but he will monitor. Callus filed as courtesy. Continue with lotion to feet daily. Patient is to RTC in 3-4 months. Abhay Whitaker DPM Referring Provider: ABHAY WHITAKER [[id number]] Allergies As of Date: 05/17/2018 Noted Allergy Reaction NO KNOWN ALLERGIES 01/13/2017 14 - Other: See Comments Date Reviewed: 05/17/2018 Reviewed by: Roxanne Benson Ma - Fully Assessed Reason for Visit: Established Patient [175] Primary Visit Diagnosis:Onychomycosis [B35.1] Other Visit Diagnoses:Pain in toe of left foot [M79.675] Pain in toe of right foot [M79.674] Hyperkeratosis [L85.9] Xerosis cutis [L85.3] Prescriptions as of 05/17/2018 Sig: ALBUTEROL SULFATE 2.5 MG/3 ML* Use 3 mL via nebulizer every * OMEPRAZOLE 20 MG CAPSULE,YOKO* Take 1 capsule by mouth daily* ALLOPURINOL 100 MG TABLET Take 1 tablet by mouth once d* ATORVASTATIN 10 MG TABLET Take 1 tablet by mouth daily * METOPROLOL SUCCINATE ER 25 MG* Take 1 tablet by mouth once d* BUDESONIDE 0.5 MG/2 ML SUSPEN* Use 2 mL via nebulizer twice * IPRATROPIUM BROMIDE 0.02 % SO* Use 2.5 mL via nebulizer four* ALBUTEROL SULFATE HFA 90 MCG/* 2 Puffs every 6 hours as need* NICOTINE 14 MG/24 HR DAILY TR* Apply 1 Patch as directed nicol* SPIRONOLACTONE 25 MG TABLET Take 0.5 tablets by mouth onc* HYDROXYCHLOROQUINE 200 MG TAB* TAKE 2 TABLETS BY MOUTH ONCE * ALENDRONATE 70 MG TABLET Take 1 tablet by mouth once e* TAMSULOSIN 0.4 MG CAPSULE Take 1 capsule by mouth once * COLCRYS 0.6 MG TABLET Take 0.6 mg by mouth twice da* TRAMADOL 50 MG TABLET Take 50 mg by mouth four time* PREGABALIN 150 MG CAPSULE Take 1 capsule by mouth twice* BACLOFEN 10 MG TABLET Take 1 tablet by mouth twice * COLCHICINE 0.6 MG CAPSULE Take 1 capsule by mouth twice* Patient taking differently: Take 0.6 mg by mouth as neede* NITROGLYCERIN 0.4 MG SUBLINGU* Dissolve 1 tablet under the t* COMPOUNDED PRESCRIPTION Aerosol nebulizer. Dx COPD. CICLOPIROX 8 % TOPICAL SOLUTI* Apply 1 application to affect* ASCORBIC ACID (VITAMIN C) 500* Take 2 tablets by mouth once * CHOLECALCIFEROL (VITAMIN D3) * Take 1 tablet by mouth once d* ASPIRIN 81 MG CHEWABLE TABLET Take 2 tablets by mouth once * THERAPEUTIC MULTIVITAMIN TABL* Take 1 tablet by mouth daily * Problem List As Of Date 05/17/2018 Noted Resolved COPD (chronic obstructive pulmonary disease) [J*INVALID FOR* More... Essential hypertension [I10] INVALID FOR* More... Chronic atrial fibrillation (HCC) [I48.2] INVALID FOR*06/15/2016 More... Hyperlipidemia [E78.5] INVALID FOR* More... Degenerative disc disease [VSE6931] INVALID FOR* Lumbar disc disease [M51.9] INVALID FOR* Spinal stenosis [M48.00] INVALID FOR* More... Coronary artery disease [I25.10] INVALID FOR* Neoplasm of uncertain behavior of skin: R/O Ski*INVALID FOR* Actinic Keratoses: Premalignant AK's [L57.0] INVALID FOR* Other seborrheic keratosis [L82.1] INVALID FOR* Actinic skin damage [L57.8] INVALID FOR* Melanocytic nevus of trunk [D22.5] INVALID FOR* Xerosis cutis [L85.3] INVALID FOR* Skin tag [L91.8] INVALID FOR* Open wound(s) (multiple) of unspecified site(s)*INVALID FOR* SUMMARY [V999.95] INVALID FOR* More... CAD (coronary artery disease), [place] coronary *INVALID FOR* More... Bronchitis [J40] INVALID FOR* More... Preop testing [Z01.818] INVALID FOR*01/17/2014 More... More... Mechanically assisted ventilation (HCC) [Z99.11]INVALID FOR*01/18/2014 More... Hypotension [I95.9] INVALID FOR*01/24/2014 More... Pain [R52] INVALID FOR* More... Leukocytosis [D72.829] INVALID FOR* More... Hyponatremia [E87.1] INVALID FOR* More... 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.1] INVALID FOR* GERD (gastroesophageal reflux disease) [K21.9] INVALID FOR* Osteopenia [M85.80] INVALID FOR* Lumbar stenosis with neurogenic claudication [M*INVALID FOR* Facet arthropathy, lumbar [M47.816] INVALID FOR* Low back pain [M54.5] INVALID FOR*01/29/2015 Cancer of skin, squamous cell [C44.92] INVALID FOR* Osteoporosis [M81.0] INVALID FOR* Spinal stenosis of lumbar region with radiculop*INVALID FOR*01/29/2015 Bilateral low back pain without sciatica [M54.5]INVALID FOR*10/21/2015 Adjustment disorder with mixed anxiety and depr*INVALID FOR* Chronic bilateral low back pain without sciatic*INVALID FOR*10/22/2015 Decreased pulses in feet [R09.89] INVALID FOR* Dehydration [E86.0] INVALID FOR* More... Abnormal echocardiogram [R93.1] INVALID FOR* PVC's (premature ventricular contractions) [I49*INVALID FOR* SVT (supraventricular tachycardia) (HCC) [I47.1]INVALID FOR* Disposition: Return in about 3 months (around 08/15/2018) for nail care. Follow-up and Disposition History Recorded Encounter Status:Closed by ABHAY WHITAKER DPM on 05/17/18 CNOV Observed: 04/23/2018 Status: COMPLETED Source: [place] 9:00 AM [facility] REPOSITORY Office Visit (VASSWS) KAMILLA DICKSON ([id number]) 1950 M Date Time Provider Department 04/23/18 9:00 AM GEETHA DAILEY During your visit today, we recorded the following information about you: Pulse Blood pressure 88/minute 117/70 Geetha Dailye DO 05/03/2018 2:23 PM Signed NAME: KAMILLA DICKSON CLINIC NO: [id number] DATE OF SERVICE: 04/23/2018 Subjective: Mr. Dickson is here to follow up on carotid artery disease as well as peripheral arterial disease. He does describe some claudication, however, most of his symptoms are due to neuropathy. His lifestyle is primarily limited secondary to his COPD and breathing. He denies any focal neurologic deficit. Objective: He is in no distress. He has no significant carotid bruits. He has nonpalpable distal pulses. His capillary refill is brisk. There is no ulceration or tissue loss. He has trace bilateral lower extremity edema. Respiratory-stanley, he has bilateral expiratory wheezes. Reviewed his carotid duplex which demonstrates right ICA 40- 59% stenosis, left CCA of 50-99% which is stable with ICA of 60-79%. These are stable from the prior six months. His ABIs demonstrate a right of 0.97 and a left of 0.91. Assessment/Plan: 1. Carotid disease. 2. Peripheral arterial disease. Reviewed the findings with Mr. Dickson. Strongly encouraged smoking cessation, as he has returned to smoking. Continue his current medication which include a statin and antiplatelet therapy. He will follow up with me in six months with repeat testing, or sooner with any concerns. Geetha Dailey D.O. KB/089 Audio #: [id number] Date Dictated: 04/23/2018 14:54:05 Date Typed: 05/03/2018 07:45:15 Date Revised: Therapeutic Radiologist: Transcribed Clinic Note (yesy) ID: [id number] Author: GEETHA DAILEY Signed by GEETHA DAILEY DO on 05/03/2018 at 2:23 PM Document text: NAME: KAMILLA DICKSON CLINIC NO: [id number] DATE OF SERVICE: 04/23/2018 Subjective: Mr. Dickson is here to follow up on carotid artery disease as well as peripheral arterial disease. He does describe some claudication, however, most of his symptoms are due to neuropathy. His lifestyle is primarily limited secondary to his COPD and breathing. He denies any focal neurologic deficit. Objective: He is in no distress. He has no significant carotid bruits. He has nonpalpable distal pulses. His capillary refill is brisk. There is no ulceration or tissue loss. He has trace bilateral lower extremity edema. Respiratory-stanley, he has bilateral expiratory wheezes. Reviewed his carotid duplex which demonstrates right ICA 40- 59% stenosis, left CCA of 50-99% which is stable with ICA of 60-79%. These are stable from the prior six months. His ABIs demonstrate a right of 0.97 and a left of 0.91. Assessment/Plan: 1. Carotid disease. 2. Peripheral arterial disease. Reviewed the findings with Mr. Dickson. Strongly encouraged smoking cessation, as he has returned to smoking. Continue his current medication which include a statin and antiplatelet therapy. He will follow up with me in six months with repeat testing, or sooner with any concerns. Geetha Dailey D.O. KB/089 Audio #: [id number] Date Dictated: 04/23/2018 14:54:05 Date Typed: 05/03/2018 07:45:15 Date Revised: Display document [id number] only Referring Provider: GEETHA DAILEY [[id number]] Allergies As of Date: 04/23/2018 Noted Allergy Reaction NO KNOWN ALLERGIES 01/13/2017 14 - Other: See Comments Date Reviewed: 04/23/2018 Reviewed by: Rod Sparks RN - Fully Assessed Reason for Visit: Established Patient [175] Primary Visit Diagnosis:Bilateral carotid artery stenosis [I65.23] Other Visit Diagnosis:Peripheral arterial disease (HCC) [I73.9] Order(s):US CAROTID ARTERIES [facility] [[id number]] Order #: [id number] FUTURE PVR LEG [facility] [[id number]] Order #: [id number] FUTURE CONSULT TO PODIATRY [9034] Order #: [id number]: 1 Prescriptions as of 04/23/2018 Sig: ALBUTEROL SULFATE HFA 90 MCG/* 2 Puffs every 6 hours as need* ALENDRONATE 70 MG TABLET Take 1 tablet by mouth once e* ASCORBIC ACID (VITAMIN C) 500* Take 2 tablets by mouth once * ASPIRIN 81 MG CHEWABLE TABLET Take 2 tablets by mouth once * ATORVASTATIN 10 MG TABLET Take 1 tablet by mouth daily * BACLOFEN 10 MG TABLET Take 1 tablet by mouth twice * BUDESONIDE 0.5 MG/2 ML SUSPEN* Use 2 mL via nebulizer twice * CHOLECALCIFEROL (VITAMIN D3) * Take 1 tablet by mouth once d* CICLOPIROX 8 % TOPICAL SOLUTI* Apply 1 application to affect* COLCHICINE 0.6 MG CAPSULE Take 1 capsule by mouth twice* Patient taking differently: Take 0.6 mg by mouth as neede* COLCRYS 0.6 MG TABLET Take 0.6 mg by mouth twice da* COMPOUNDED PRESCRIPTION Aerosol nebulizer. Dx COPD. HYDROXYCHLOROQUINE 200 MG TAB* TAKE 2 TABLETS BY MOUTH ONCE * IPRATROPIUM BROMIDE 0.02 % SO* Use 2.5 mL via nebulizer four* METOPROLOL SUCCINATE ER 25 MG* Take 1 tablet by mouth once d* NICOTINE 14 MG/24 HR DAILY TR* Apply 1 Patch as directed nicol* NITROGLYCERIN 0.4 MG SUBLINGU* Dissolve 1 tablet under the t* PREGABALIN 150 MG CAPSULE Take 1 capsule by mouth twice* SPIRONOLACTONE 25 MG TABLET Take 0.5 tablets by mouth onc* TAMSULOSIN 0.4 MG CAPSULE Take 1 capsule by mouth once * THERAPEUTIC MULTIVITAMIN TABL* Take 1 tablet by mouth daily * TRAMADOL 50 MG TABLET Take 50 mg by mouth four time* X ALBUTEROL SULFATE 2.5 MG/3 ML* Use 3 mL via nebulizer every * X ALLOPURINOL 100 MG TABLET Take 1 tablet by mouth once d* X OMEPRAZOLE 20 MG CAPSULE,YOKO* Take 1 capsule by mouth daily* Problem List As Of Date 04/23/2018 Noted Resolved COPD (chronic obstructive pulmonary disease) [J*INVALID FOR* More... Essential hypertension [I10] INVALID FOR* More... Chronic atrial fibrillation (HCC) [I48.2] INVALID FOR*06/15/2016 More... Hyperlipidemia [E78.5] INVALID FOR* More... Degenerative disc disease [[id number]] INVALID FOR* Lumbar disc disease [M51.9] INVALID FOR* Spinal stenosis [M48.00] INVALID FOR* More... Coronary artery disease [I25.10] INVALID FOR* Neoplasm of uncertain behavior of skin: R/O Ski*INVALID FOR* Actinic Keratoses: Premalignant AK's [L57.0] INVALID FOR* Other seborrheic keratosis [L82.1] INVALID FOR* Actinic skin damage [L57.8] INVALID FOR* Melanocytic nevus of trunk [D22.5] INVALID FOR* Xerosis cutis [L85.3] INVALID FOR* Skin tag [L91.8] INVALID FOR* Open wound(s) (multiple) of unspecified site(s)*INVALID FOR* SUMMARY [V999.95] INVALID FOR* More... CAD (coronary artery disease), [place] coronary *INVALID FOR* More... Bronchitis [J40] INVALID FOR* More... Preop testing [Z01.818] INVALID FOR*01/17/2014 More... More... Mechanically assisted ventilation (HCC) [Z99.11]INVALID FOR*01/18/2014 More... Hypotension [I95.9] INVALID FOR*01/24/2014 More... Pain [R52] INVALID FOR* More... Leukocytosis [D72.829] INVALID FOR* More... Hyponatremia [E87.1] INVALID FOR* More... 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.1] INVALID FOR* GERD (gastroesophageal reflux disease) [K21.9] INVALID FOR* Osteopenia [M85.80] INVALID FOR* Lumbar stenosis with neurogenic claudication [M*INVALID FOR* Facet arthropathy, lumbar [M47.816] INVALID FOR* Low back pain [M54.5] INVALID FOR*01/29/2015 Cancer of skin, squamous cell [C44.92] INVALID FOR* Osteoporosis [M81.0] INVALID FOR* Spinal stenosis of lumbar region with radiculop*INVALID FOR*01/29/2015 Bilateral low back pain without sciatica [M54.5]INVALID FOR*10/21/2015 Adjustment disorder with mixed anxiety and depr*INVALID FOR* Chronic bilateral low back pain without sciatic*INVALID FOR*10/22/2015 Decreased pulses in feet [R09.89] INVALID FOR* Dehydration [E86.0] INVALID FOR* More... Abnormal echocardiogram [R93.1] INVALID FOR* PVC's (premature ventricular contractions) [I49*INVALID FOR* SVT (supraventricular tachycardia) ([facility]) [I47.1]INVALID FOR* Encounter Status:Closed by GEETHA DAILEY DO on 05/07/18 PROGRESS Observed: 04/23/2018 Status: COMPLETED Source: [place] 12:00 AM [facility] [place] REPOSITORY HNO ID: [id number] Author: Geetha Dailey Service: Vascular Surgery Author Type: Physician Type: Progress Notes Filed: 05/03/2018 2:23 PM Note Text: NAME: KAMILLA DICKSON [facility] NO: [id number] DATE OF SERVICE: 04/23/2018 Subjective: Mr. Dickson is here to follow up on carotid artery disease as well as peripheral arterial disease. He does describe some claudication, however, most of his symptoms are due to neuropathy. His lifestyle is primarily limited secondary to his COPD and breathing. He denies any focal neurologic deficit. Objective: He is in no distress. He has no significant carotid bruits. He has nonpalpable distal pulses. His capillary refill is brisk. There is no ulceration or tissue loss. He has trace bilateral lower extremity edema. Respiratory-stanley, he has bilateral expiratory wheezes. Reviewed his carotid duplex which demonstrates right ICA 40- 59% stenosis, left CCA of 50-99% which is stable with ICA of 60-79%. These are stable from the prior six months. His ABIs demonstrate a right of 0.97 and a left of 0.91. Assessment/Plan: 1. Carotid disease. 2. Peripheral arterial disease. Reviewed the findings with Mr. Dickson. Strongly encouraged smoking cessation, as he has returned to smoking. Continue his current medication which include a statin and antiplatelet therapy. He will follow up with me in six months with repeat testing, or sooner with any concerns. Geetha Dailey D.O. KB/089 Audio #: [id number] Date Dictated: 04/23/2018 14:54:05 Date Typed: 05/03/2018 07:45:15 Date Revised: CNNURSE Observed: 01/24/2018 Status: COMPLETED Source: [place] 4:10 PM [facility] REPOSITORY Nurse Visit (ALESHIAWADS) KAMILLA DICKSON ([id number]) 1950 M Date Time Provider Department 01/24/18 4:10 PM NURSE MARYLU DENSON MICHAEL During your visit today, we recorded the following information about you: Soto Semaj 01/24/2018 11:31 AM Signed VISION TEST Corrected vision?: Glasses (bifocals) Far Right -- 20/25 Far Left -- 20/25 Far Both -- 20/25 Color Vision -- pass HEARING - pt has new hearing aids, bilat. Last seen 4 months ago for hearing aids. Soto Ahuja 01/24/2018 11:31 AM Signed Pt comes into office today with forms to be signed by Dr Alberto for driving. Vision Screening performed. Passed. Hearing acceptable. Has bilat new hearing aids, last seen 4 months. Forms completed by Dr Alberto and given back to pt. Referring Provider: SELF [[id number]] Allergies As of Date: 01/24/2018 Noted Allergy Reaction NO KNOWN ALLERGIES 01/13/2017 14 - Other: See Comments Date Reviewed: 01/20/2018 Reviewed by: Debi Bowie - Fully Assessed Reason for Visit: Eye Test [Other] Cmt: forms for driving completed Reason For Visit History Recorded Primary Visit Diagnosis:Encounter for vision screening [Z01.00] Prescriptions as of 01/24/2018 Sig: BUDESONIDE 0.5 MG/2 ML SUSPEN* Use 2 mL via nebulizer twice * IPRATROPIUM BROMIDE 0.02 % SO* Use 2.5 mL via nebulizer four* ALBUTEROL SULFATE HFA 90 MCG/* 2 Puffs every 6 hours as need* ALBUTEROL SULFATE 2.5 MG/3 ML* Use 3 mL via nebulizer every * NICOTINE 14 MG/24 HR DAILY TR* Apply 1 Patch as directed nicol* SPIRONOLACTONE 25 MG TABLET Take 0.5 tablets by mouth onc* HYDROXYCHLOROQUINE 200 MG TAB* TAKE 2 TABLETS BY MOUTH ONCE * METOPROLOL SUCCINATE ER 25 MG* Take 1 tablet by mouth once d* ALENDRONATE 70 MG TABLET Take 1 tablet by mouth once e* TAMSULOSIN 0.4 MG CAPSULE Take 1 capsule by mouth once * COLCRYS 0.6 MG TABLET Take 0.6 mg by mouth twice da* TRAMADOL 50 MG TABLET Take 50 mg by mouth four time* OMEPRAZOLE 20 MG CAPSULE,YOKO* Take 1 capsule by mouth daily* ATORVASTATIN 10 MG TABLET Take 1 tablet by mouth daily * PREGABALIN 150 MG CAPSULE Take 1 capsule by mouth twice* BACLOFEN 10 MG TABLET Take 1 tablet by mouth twice * ALLOPURINOL 100 MG TABLET Take 1 tablet by mouth once d* COLCHICINE 0.6 MG CAPSULE Take 1 capsule by mouth twice* Patient taking differently: Take 0.6 mg by mouth as neede* NITROGLYCERIN 0.4 MG SUBLINGU* Dissolve 1 tablet under the t* COMPOUNDED PRESCRIPTION Aerosol nebulizer. Dx COPD. CICLOPIROX 8 % TOPICAL SOLUTI* Apply 1 application to affect* ASCORBIC ACID (VITAMIN C) 500* Take 2 tablets by mouth once * CHOLECALCIFEROL (VITAMIN D3) * Take 1 tablet by mouth once d* ASPIRIN 81 MG CHEWABLE TABLET Take 2 tablets by mouth once * THERAPEUTIC MULTIVITAMIN TABL* Take 1 tablet by mouth daily * Problem List As Of Date 01/24/2018 Noted Resolved COPD (chronic obstructive pulmonary disease) [J*INVALID FOR* Priority: B More... Essential hypertension [I10] INVALID FOR* Priority: C More... Chronic atrial fibrillation (HCC) [I48.2] INVALID FOR*06/15/2016 Priority: A More... Hyperlipidemia [E78.5] INVALID FOR* Priority: E More... Degenerative disc disease [BVG2249] INVALID FOR* Lumbar disc disease [M51.9] INVALID FOR* Spinal stenosis [M48.00] INVALID FOR* Priority: K More... 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 CAD (coronary artery disease), [place] coronary *INVALID FOR* Priority: A More... Bronchitis [J40] INVALID FOR* Priority: B More... Preop testing [Z01.818] INVALID FOR*01/17/2014 More... More... Mechanically assisted ventilation (HCC) [Z99.11]INVALID FOR*01/18/2014 Priority: B More... Hypotension [I95.9] INVALID FOR*01/24/2014 Priority: C More... Pain [R52] INVALID FOR* Priority: D More... Leukocytosis [D72.829] INVALID FOR* Priority: I More... Hyponatremia [E87.1] INVALID FOR* Priority: F More... 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.1] INVALID FOR* GERD (gastroesophageal reflux disease) [K21.9] INVALID FOR* Osteopenia [M85.80] INVALID FOR* Lumbar stenosis with neurogenic claudication [M*INVALID FOR* Facet arthropathy, lumbar [M47.816] INVALID FOR* Low back pain [M54.5] INVALID FOR*01/29/2015 Cancer of skin, squamous cell [C44.92] INVALID FOR* Osteoporosis [M81.0] INVALID FOR* Spinal stenosis of lumbar region with radiculop*INVALID FOR*01/29/2015 Bilateral low back pain without sciatica [M54.5]INVALID FOR*10/21/2015 Adjustment disorder with mixed anxiety and depr*INVALID FOR* Chronic bilateral low back pain without sciatic*INVALID FOR*10/22/2015 Decreased pulses in feet [R09.89] INVALID FOR* Dehydration [E86.0] INVALID FOR* More... Abnormal echocardiogram [R93.1] INVALID FOR* PVC's (premature ventricular contractions) [I49*INVALID FOR* SVT (supraventricular tachycardia) (HCC) [I47.1]INVALID FOR* Visit Notes: >> Soto Ahuja Wed Jan 24, 2018 11:27 AM Status: Signed VISION TEST Corrected vision?: Glasses (bifocals) Far Right -- 20/25 Far Left -- 20/25 Far Both -- 20/25 Color Vision -- pass HEARING - pt has new hearing aids, bilat. Last seen 4 months ago for hearing aids. Encounter Status:Closed by SOTO AHUJA on 01/24/18 PROGRESS Observed: 01/24/2018 Status: COMPLETED Source: [place] 11:29 AM [facility] REPOSITORY HNO ID: [id number] Author: Soto Ahuja Service: (none) Author Type: (none) Type: Progress Notes Filed: 01/24/2018 11:31 AM Note Text: Pt comes into office today with forms to be signed by Dr Alberto for driving. Vision Screening performed. Passed. Hearing acceptable. Has bilat new hearing aids, last seen 4 months. Forms completed by Dr Alberto and given back to pt. PROGRESS Observed: 01/24/2018 Status: COMPLETED Source: [place] 6:26 AM [facility] REPOSITORY HNO ID: [id number] Author: Deib Bowie Service: (none) Author Type: Physician Type: Progress Notes Filed: 01/24/2018 6:28 AM Note Text: OPERATIVE NOTATION FOR [facility] SURGICAL PROCEDURE. January 15, 2018 Kamilla Dickson 1950 [id number] male PROCEDURE: EGD WITH BIOPSY - [id number] SURGEON: Norman Bowie M.D. FACS [employer]ENEWAL MANAGER: None DEPT: WQ PROVIDER: T87=CnaovklDebi Bowie MD POS: [id number] DIAGNOSIS: (R13.10) Dysphagia, unspecified type (primary encounter diagnosis) (T17.908A) Aspiration into airway, initial encounter (J43.9) Pulmonary emphysema, unspecified emphysema type (HCC) ASA CLASS: 3 - Severe FINDINGS: COMPLICATIONS: None PMHx - PAST MEDICAL HISTORY Diagnosis Date - Arthritis back and hips - Atrial fibrillation (HCC) - COPD (chronic obstructive pulmonary disease) (HCC) - Degenerative disc disease - Dehydration 2016 Associated with MATHIEU. - Depression - Herniated disc - High blood pressure - High cholesterol - Nocturnal hypoxemia - OA (osteoarthritis) - Seasonal allergies - Spinal stenosis COMORBIDITIES - Chronic Pulmonary, COPD and HTN Post Op Occurrences - None Wound Classification - Clean Contaminated Operative note dictated in the [facility] dictation system. Debi Bowie MD PROGRESS Observed: 01/20/2018 Status: COMPLETED Source: [place] 3:45 AM [facility] REPOSITORY HNO ID: [id number] Author: Debi Bowie Service: (none) Author Type: Physician Type: Progress Notes Filed: 01/20/2018 6:48 AM Note Text: FOLLOW UP VISIT - ENDOSCOPY NAME: Kamilla [facility] NO.: [id number] DATE OF SERVICE: 01/19/2018 : 1950 REFERRING PHYSICIAN: Julita Alberto MD Kamilla is a patient I am following for dysphagia. The patient is a 67 year old male referred for endoscopy. Kamilla notes no colon complaints. He had a colonoscopy performed by Dr. Marie in 2013 who found a small polyp and recommended 5 year follow-up endoscopy. The patient was referred for a complaint of difficulty swallowing. For the past few months, he is noticed episodes of choking while eating food and difficulty swallowing. He notes some discomfort in the upper esophagus with swallowing. He had a choking episode and presented to [facility] emergency department on December 17. He had a apparently cookie swallowing study - this did not demonstrate true aspiration. It was recommended he eats slowly and swallow while sitting upright. The patient has a very prolonged history of tobacco use. Recent pulmonary function tests demonstrate an FEV1 of 0.8 to or 33% predicted. He is at a history of coronary bypass grafting with clipping of his left atrial appendage. Kamilla has not undergone prior upper endoscopy. I performed upper endoscopy on February 14, 2018. The patient was found to have mild gastritis and mild distal esophagitis. Pathology demonstrated: MICROSCOPIC DIAGNOSIS A. Antral biopsy: Mild gastritis. See microscopic description and comment. B. Distal esophageal biopsy: Fragments of gastroesophageal mucosa with chronic inflammation. Intestinal metaplasia (goblet cell metaplasia) is not identified. See comment. C. Mid esophageal biopsy: Fragments of squamous epithelium, no pathologic diagnosis. H. pylori was negative The patient notes continued complaints since the procedure with occasional dysphagia VITALS: There were no vitals taken for this visit. On examination, the abdomen is benign. Assessment IMPRESSION: Dysphagia, no obvious findings on upper endoscopy PLAN: If the patient notes any problems or changes in bowel function, the patient should contact me immediately. Otherwise I recommend follow up endoscopy as needed. The patient notes symptoms of dysphagia approximately 2-3 times per week including occasionally difficulty swallowing his saliva in the upper esophagus. I discussed the next step in workup would be esophageal manometry and recommended referral to [facility] for this study. Currently, the patient does not feel his symptoms are severe enough and he states his schedule is too busy for him to consider that test. If his symptoms worsen, he will contact the office and we will plan to arrange at that time. Diagnoses: (R13.10) Dysphagia, unspecified type (primary encounter diagnosis) (T17.908A) Aspiration into airway, initial encounter (J43.9) Pulmonary emphysema, unspecified emphysema type (HCC) Return to Clinic: The patient is instructed to follow- up with me as needed. Debi Bowie MD CNOV Observed: 01/19/2018 Status: COMPLETED Source: [place] 1:30 PM [facility] REPOSITORY Office Visit (GENSWS) KAMILLA DICKSON ([id number]) 1950 M Date Time Provider Department 01/19/18 1:30 PM DEBI BOWIE During your visit today, we recorded the following information about you: Debi Bowie MD 01/20/2018 6:48 AM Signed FOLLOW UP VISIT - ENDOSCOPY NAME: Kamilla Dickson [facility] NO.: [id number] DATE OF SERVICE: 01/19/2018 : 1950 REFERRING PHYSICIAN: Julita Alberto MD Kamilla is a patient I am following for dysphagia. The patient is a 67 year old male referred for endoscopy. Kamilla notes no colon complaints. He had a colonoscopy performed by Dr. Marie in 2013 who found a small polyp and recommended 5 year follow-up endoscopy. The patient was referred for a complaint of difficulty swallowing. For the past few months, he is noticed episodes of choking while eating food and difficulty swallowing. He notes some discomfort in the upper esophagus with swallowing. He had a choking episode and presented to [facility] emergency department on December 17. He had a apparently cookie swallowing study - this did not demonstrate true aspiration. It was recommended he eats slowly and swallow while sitting upright. The patient has a very prolonged history of tobacco use. Recent pulmonary function tests demonstrate an FEV1 of 0.8 to or 33% predicted. He is at a history of coronary bypass grafting with clipping of his left atrial appendage. Kamilla has not undergone prior upper endoscopy. I performed upper endoscopy on February 14, 2018. The patient was found to have mild gastritis and mild distal esophagitis. Pathology demonstrated: MICROSCOPIC DIAGNOSIS A. Antral biopsy: Mild gastritis. See microscopic description and comment. B. Distal esophageal biopsy: Fragments of gastroesophageal mucosa with chronic inflammation. Intestinal metaplasia (goblet cell metaplasia) is not identified. See comment. C. Mid esophageal biopsy: Fragments of squamous epithelium, no pathologic diagnosis. H. pylori was negative The patient notes continued complaints since the procedure with occasional dysphagia VITALS: There were no vitals taken for this visit. On examination, the abdomen is benign. Assessment IMPRESSION: Dysphagia, no obvious findings on upper endoscopy PLAN: If the patient notes any problems or changes in bowel function, the patient should contact me immediately. Otherwise I recommend follow up endoscopy as needed. The patient notes symptoms of dysphagia approximately 2-3 times per week including occasionally difficulty swallowing his saliva in the upper esophagus. I discussed the next step in workup would be esophageal manometry and recommended referral to [facility] for this study. Currently, the patient does not feel his symptoms are severe enough and he states his schedule is too busy for him to consider that test. If his symptoms worsen, he will contact the office and we will plan to arrange at that time. Diagnoses: (R13.10) Dysphagia, unspecified type (primary encounter diagnosis) (T17.) Aspiration into airway, initial encounter (J43.9) Pulmonary emphysema, unspecified emphysema type (HCC) Return to Clinic: The patient is instructed to follow- up with me as needed. Debi Bowie MD Referring Provider: DEBI BOWIE [[id number]] Allergies As of Date: 01/19/2018 Noted Allergy Reaction NO KNOWN ALLERGIES 01/13/2017 14 - Other: See Comments Date Reviewed: 01/19/2018 Reviewed by: Veena Galeano LPN - Fully Assessed Reason for Visit: Post Op [174] Primary Visit Diagnosis:Dysphagia, unspecified type [R13.10] Other Visit Diagnoses:Aspiration into airway, initial encounter [T17.8A] Pulmonary emphysema, unspecified emphysema type (HCC) [J43.9] Prescriptions as of 01/19/2018 Sig: BUDESONIDE 0.5 MG/2 ML SUSPEN* Use 2 mL via nebulizer twice * IPRATROPIUM BROMIDE 0.02 % SO* Use 2.5 mL via nebulizer four* ALBUTEROL SULFATE HFA 90 MCG/* 2 Puffs every 6 hours as need* ALBUTEROL SULFATE 2.5 MG/3 ML* Use 3 mL via nebulizer every * X BUDESONIDE 0.5 MG/2 ML SUSPEN* Use 2 mL via nebulizer twice * NICOTINE 14 MG/24 HR DAILY TR* Apply 1 Patch as directed nicol* SPIRONOLACTONE 25 MG TABLET Take 0.5 tablets by mouth onc* HYDROXYCHLOROQUINE 200 MG TAB* TAKE 2 TABLETS BY MOUTH ONCE * METOPROLOL SUCCINATE ER 25 MG* Take 1 tablet by mouth once d* ALENDRONATE 70 MG TABLET Take 1 tablet by mouth once e* TAMSULOSIN 0.4 MG CAPSULE Take 1 capsule by mouth once * COLCRYS 0.6 MG TABLET Take 0.6 mg by mouth twice da* TRAMADOL 50 MG TABLET Take 50 mg by mouth four time* OMEPRAZOLE 20 MG CAPSULE,YOKO* Take 1 capsule by mouth daily* ATORVASTATIN 10 MG TABLET Take 1 tablet by mouth daily * PREGABALIN 150 MG CAPSULE Take 1 capsule by mouth twice* BACLOFEN 10 MG TABLET Take 1 tablet by mouth twice * ALLOPURINOL 100 MG TABLET Take 1 tablet by mouth once d* COLCHICINE 0.6 MG CAPSULE Take 1 capsule by mouth twice* Patient taking differently: Take 0.6 mg by mouth as neede* NITROGLYCERIN 0.4 MG SUBLINGU* Dissolve 1 tablet under the t* COMPOUNDED PRESCRIPTION Aerosol nebulizer. Dx COPD. CICLOPIROX 8 % TOPICAL SOLUTI* Apply 1 application to affect* ASCORBIC ACID (VITAMIN C) 500* Take 2 tablets by mouth once * CHOLECALCIFEROL (VITAMIN D3) * Take 1 tablet by mouth once d* ASPIRIN 81 MG CHEWABLE TABLET Take 2 tablets by mouth once * THERAPEUTIC MULTIVITAMIN TABL* Take 1 tablet by mouth daily * Problem List As Of Date 01/19/2018 Noted Resolved COPD (chronic obstructive pulmonary disease) [J*INVALID FOR* Priority: B More... Essential hypertension [I10] INVALID FOR* Priority: C More... Chronic atrial fibrillation (HCC) [I48.2] INVALID FOR*06/15/2016 Priority: A More... Hyperlipidemia [E78.5] INVALID FOR* Priority: E More... Degenerative disc disease [PHM4556] INVALID FOR* Lumbar disc disease [M51.9] INVALID FOR* Spinal stenosis [M48.00] INVALID FOR* Priority: K More... 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 CAD (coronary artery disease), [place] coronary *INVALID FOR* Priority: A More... Bronchitis [J40] INVALID FOR* Priority: B More... Preop testing [Z01.818] INVALID FOR*01/17/2014 More... More... Mechanically assisted ventilation (HCC) [Z99.11]INVALID FOR*01/18/2014 Priority: B More... Hypotension [I95.9] INVALID FOR*01/24/2014 Priority: C More... Pain [R52] INVALID FOR* Priority: D More... Leukocytosis [D72.829] INVALID FOR* Priority: I More... Hyponatremia [E87.1] INVALID FOR* Priority: F More... 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.1] INVALID FOR* GERD (gastroesophageal reflux disease) [K21.9] INVALID FOR* Osteopenia [M85.80] INVALID FOR* Lumbar stenosis with neurogenic claudication [M*INVALID FOR* Facet arthropathy, lumbar [M47.816] INVALID FOR* Low back pain [M54.5] INVALID FOR*01/29/2015 Cancer of skin, squamous cell [C44.92] INVALID FOR* Osteoporosis [M81.0] INVALID FOR* Spinal stenosis of lumbar region with radiculop*INVALID FOR*01/29/2015 Bilateral low back pain without sciatica [M54.5]INVALID FOR*10/21/2015 Adjustment disorder with mixed anxiety and depr*INVALID FOR* Chronic bilateral low back pain without sciatic*INVALID FOR*10/22/2015 Decreased pulses in feet [R09.89] INVALID FOR* Dehydration [E86.0] INVALID FOR* More... Abnormal echocardiogram [R93.1] INVALID FOR* PVC's (premature ventricular contractions) [I49*INVALID FOR* SVT (supraventricular tachycardia) ([facility]) [I47.1]INVALID FOR* Follow-up and Disposition History Recorded Encounter Status:Closed by DEBI BOWIE MD on 01/20/18 OPERATIVE REPORT Observed: 01/15/2018 Status: F Source: [place] 8:[address] [facility] REPOSITORY [facility] Medical Records Department [address] [place] [address] Operative Report 01/15/18 1412 MR#: [id number] Acct: [id number] Name: KAMILLA DICKSON Rep #: [id number] : 1950 67 From: Debi Bowie MD PCP: Neto Alberto MD Status: DEP [facility] Location: EN Report of Operation Date of Procedure: 01/15/18 Pre-Operative Diagnosis: dysphagia Post-Operative Diagnosis: small AVM jejunum, mild gastritis, mild distal esophagitis Surgery/Procedure Performed:: EGD with biopsy back wedger: None Anesthesiologist: Anam Foster - ASA3 Specimen's removed: gastric for H pylori and path, distal esophagus, mid esophagus Description of Procedure: The patient was brought to the endoscopy suite. Sign in was performed verifying patient, site, planned procedure, critical nursing information, the patient was monitored with cardiac, pulse oximetric, and blood pressure monitoring devices. Monitored anesthetic care was provided for sedation. Following IV sedation and after the oropharynx was sprayed with Cetacaine spray, a video gastroscope was inserted in the oropharynx and advanced down the esophagus without difficulty. The scope was advanced through the stomach, through the pylorus through the duodenum to the proximal jejunum. there was a small AVM in the proximal jejunum. Otherwise, the jejunum and duodenum were unremarkable. The patient had mild distal esophagitis. Biopsies were obtained for H. pylori pathology. The scope was retroflexed, the fundus appeared unremarkable. The patient had mild distal esophagitis. Biopsies obtained at this location. Since the patient had a degree of dysphasia, and the esophageal biopsy was obtained. Even though this appeared normal. The patient tolerated the procedure well and was brought to recovery in stable condition 01/15/18 2030 <Electronically signed by Debi Bowie MD> Date Debi Bowie MD CC: Neto Alberto MD; Debi Bowie MD Signed EGD ([facility]) Observed: 01/15/2018 Status: F Source: [place] 1:[address] [facility] REPOSITORY Patient: KAMILLA DICKSON : 1950 (67/M) Acct Num: [id number] Phys: Jamir VENEGAS,Debi Unit Num: [id number] Loc: EN Specimen: [id number] Received: 01/15/18 - 1434 Spec Type: EGD BIOPSY TISSUES TISSUES: A. Gastric mucous membrane B. Esophageal mucous membrane C. Esophageal mucous membrane COMMENT A. The results of immunohistochemistry for Helicobacter pylori will be reported separately ([id number]). B. Alcian blue/PAS stain with matched control is used in the evaluation of the specimen. GROSS DESCRIPTION A - Received in fixative is one container labeled with the patient's name and designated antral biopsy. The specimen consists of one irregular fragment of light hughes soft tissue that measures 0.3 x 0.3 x 0.1 cm. The specimen is totally submitted in one cassette. B - Received in fixative is one container labeled with the patient's name and designated distal esophageal biopsy. The specimen consists of two irregular fragments of light hughes soft tissue that in aggregate measure 0.5 x 0.3 x 0.1 cm. The specimen is totally submitted in one cassette. C - Received in fixative is one container labeled with the patient's name and designated mid esophageal biopsy. The specimen consists of one irregular fragment of light hughes soft tissue that measures 0.5 x 0.2 x 0.1 cm. The specimen is totally submitted in one cassette. / SJ:rg 01/15/18 TC:3 CPT: 95570 x3, 72572 HEADER OPERATION: EGD ([facility]) PRE-OP DIAGNOSIS: Dysphagia TISSUE SUBMITTED: A Antral biopsy for pathology, B Distal esophageal biopsy , C Mid esophageal biopsy MICROSCOPIC DESCRIPTION Slides are reviewed. A. The specimen shows fragments of gastric mucosa with chronic inflammatory cell infiltrates in the lamina propria consisting of lymphocytes and plasma cells, consistent with mild chronic gastritis. MICROSCOPIC DIAGNOSIS A. Antral biopsy: Mild gastritis. See microscopic description and comment. B. Distal esophageal biopsy: Fragments of gastroesophageal mucosa with chronic inflammation. Intestinal metaplasia (goblet cell metaplasia) is not identified. See comment. C. Mid esophageal biopsy: Fragments of squamous epithelium, no pathologic diagnosis. SJ:alka 01/16/18 Signed Rod Garciain 01/17/18 <signature on file> Performed By: #### PEGD #### [facility] [place], [address] CNOP Observed: 01/15/2018 Status: COMPLETED Source: [place] 12:00 AM [facility] REPOSITORY Operative Note (Enc) (GENSWS) Progress Notes: Debi Bowie MD 01/24/2018 6:28 AM Signed OPERATIVE NOTATION FOR [facility] SURGICAL PROCEDURE. January 15, 2018 Kamilla Dickson 1950 [id number] male PROCEDURE: EGD WITH BIOPSY - [id number] SURGEON: Norman Bowie M.D. FACS [employer]EWAL MANAGER: None DEPT: WQ PROVIDER: [id number]=BeiibqwDebi Bowie MD POS: 4X1=LEFYMOMAOS DIAGNOSIS: (R13.10) Dysphagia, unspecified type (primary encounter diagnosis) (T17.908A) Aspiration into airway, initial encounter (J43.9) Pulmonary emphysema, unspecified emphysema type (HCC) ASA CLASS: 3 - Severe FINDINGS: COMPLICATIONS: None PMHx - PAST MEDICAL HISTORY Diagnosis Date - Arthritis back and hips - Atrial fibrillation (HCC) - COPD (chronic obstructive pulmonary disease) (HCC) - Degenerative disc disease - Dehydration 2016 Associated with MATHIEU. - Depression - Herniated disc - High blood pressure - High cholesterol - Nocturnal hypoxemia - OA (osteoarthritis) - Seasonal allergies - Spinal stenosis COMORBIDITIES - Chronic Pulmonary, COPD and HTN Post Op Occurrences - None Wound Classification - Clean Contaminated Operative note dictated in the [facility] dictation system. Debi Bowie MD Encounter Status:Closed by DEBI BOWIE MD on 01/24/18 IMMUNOHISTOCHEMISTRY Observed: 01/15/2018 Status: F Source: [place] 12:[address] [facility] REPOSITORY Patient: KAMILLA DICKSON : 1950 (67/M) Acct Num: [id number] Phys: Jamir VENEGAS,Debi Unit Num: [id number] Loc: EN Specimen: [id number] Received: 01/16/181425 Spec Type: IMMUNO TISSUES TISSUES: A. Stomach, NOS SPECIMEN INFORMATION: Tissue Source: A Antral biopsy Clinical Info: Dysphagia Specimen Number: [id number] CPT code: 76067 METHODOLOGY: Deparaffinized sections of prefer/formalin-fixed tissue or PAP/DQ stained slides are incubated with monoclonal/polyclonal antibodies/oligonucleotide probes. Localization is made via biotin free immunoperoxidase method. Appropriate controls are performed and reacted as expected. Results on target cell population are indicated in the following table: RESULTS: ANTIBODY / CLONE RESULT Block A H Pylori (polyclonal) negative These tests were developed and their performance characteristics determined by [facility]. They may not have been cleared or approved by the U.S. Food and Drug Administration. The FDA has determined that such clearance or approval is not necessary. INTERPRETATION: A. Antral biopsy: Negative for Helicobacter pylori organisms. SJ:alka 01/17/18 PHYSICIAN AND INSTITUTION [place] [address] Signed Rod Knight 01/17/18 <signature on file> Performed By: #### PIMM #### [facility] [address] [place] [address], [id number] PROGRESS Observed: 01/01/2018 Status: COMPLETED Source: [place] 11:50 AM [facility] [place] REPOSITORY HNO ID: [id number] Author: Julita Alberto Service: (none) Author Type: Physician Type: Progress Notes Filed: 01/01/2018 12:03 PM Note Text: Chief Complaint Patient presents with: Follow Up: 3 month check HPI Kamilla Dickson is a 67 year old male who presents here today for follow-up of assorted issues. . Chronic arthritis. Sees pain mgt. Generally down to 3 mo visit. Hip, back. He's having issues with tremor, gait. Shakes , paperwork notes shaky handwriting. Past medical history, appointments, medications, allergies reviewed. Previous Medical History PAST MEDICAL HISTORY Diagnosis Date - Arthritis back and hips - Atrial fibrillation (HCC) - COPD (chronic obstructive pulmonary disease) (HCC) - Degenerative disc disease - Dehydration 2015 Associated with MATHIEU. - Depression - Herniated disc - High blood pressure - High cholesterol - Nocturnal hypoxemia - OA (osteoarthritis) - Seasonal allergies - Spinal stenosis Previous Surgical History PAST SURGICAL HISTORY Procedure Laterality Date - CARPAL TUNNEL bilateral. done by [facility] - CATARACT SURGERY, [facility] - COLONOSCOP W/ OR W/O [facility] SPEC 11/21/13 Colonoscopy - COLONOSCOPY AND POLYPECTOMY 01/04/08 hyperplastic polyps, diverticulosis - CORONARY ARTERY BYPASS GRAFT HX 2013 2 artery Family History FAMILY HISTORY Problem Relation Age of Onset - Cancer Father Some GI cancer. - None Mother of old age at 99 years old. - Ischemic Heart Disease Paternal Grandmother Heart attack at old age. Patient Allergies ALLERGIES Allergen Reactions - No Known Allergies Other: See Comments Current Medications Current Outpatient Prescriptions on File Prior to Visit: ipratropium (ATROVENT) 0.02 % nebulizer solution Use 2.5 mL via nebulizer four times daily. budesonide (PULMICORT) 0.5 mg/2 mL nebulizer solution Use 2 mL via nebulizer twice daily. albuterol HFA (PROAIR HFA) 90 mcg/actuation inhaler 2 Puffs every 6 hours as needed. Take as directed albuterol (PROVENTIL) 2.5 mg /3 mL (0.083 %) nebulizer solution Use 3 mL via nebulizer every 4 hours as needed for Wheezing/Shortness of Breath. Use over 5-15minutes. nicotine (NICODERM CQ) 14 mg/24 hr Apply 1 Patch as directed every 24 hours. spironolactone (ALDACTONE) 25 mg tablet Take 0.5 tablets by mouth once daily. hydroxychloroquine (PLAQUENIL) 200 mg tablet TAKE 2 TABLETS BY MOUTH ONCE DAILY metoprolol succinate ER (TOPROL XL) 25 mg 24 hr tablet Take 1 tablet by mouth once daily. alendronate (FOSAMAX) 70 mg tablet Take 1 tablet by mouth once each week. tamsulosin ER (FLOMAX) 0.4 mg cp24 Take 1 capsule by mouth once daily. COLCRYS 0.6 mg tablet Take 0.6 mg by mouth twice daily. traMADol (ULTRAM) 50 mg tablet Take 50 mg by mouth four times daily as needed (can take 1 at bedtime as needed). omeprazole (PRILOSEC) 20 mg capsule Take 1 capsule by mouth daily before breakfast. 1/2 hr before meal. atorvastatin (LIPITOR) 10 mg tablet Take 1 tablet by mouth daily at bedtime. For cholesterol. pregabalin (LYRICA) 150 mg capsule Take 1 capsule by mouth twice daily. baclofen (LIORESAL) 10 mg tablet Take 1 tablet by mouth twice daily as needed. allopurinol (ZYLOPRIM) 100 mg tablet Take 1 tablet by mouth once daily. colchicine (MITIGARE) 0.6 mg capsule Take 1 capsule by mouth twice daily. (Patient taking differently: Take 0.6 mg by mouth as needed. ) nitroglycerin sublingual (NITROQUICK) 0.4 mg SL tablet Dissolve 1 tablet under the tongue every 5 minutes as needed for Chest Pain (If chest pain no better after 3 tablets, call 911). COMPOUNDED PRESCRIPTION Aerosol nebulizer. Dx COPD. Ciclopirox (LOPROX) 8 % solution Apply 1 application to affected area daily at bedtime. ascorbic acid (VITAMIN C) 500 mg tablet Take 2 tablets by mouth once daily. COMPOUNDED PRESCRIPTION Please perform nocturnal oximetry on room air.Diagnosis: Hypoxia Please fax results to [phone] Cholecalciferol, Vitamin D3, 2,000 unit cap Take 1 tablet by mouth once daily. aspirin 81 mg chewable tablet Take 2 tablets by mouth once daily. therapeutic multivitamin (THERA VITAMIN) tablet Take 1 tablet by mouth daily with breakfast. No current facility-administered medications on file prior to visit. 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 [place]. Lives with his sister Samira , she's incapacitated due to above knee amputation (cirulation) Exercise: Negligible. Diet: lives on sandwiches. 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 ROS: General: Feels well, no weight changes, fever, chills. HEENT: No sinus congestion, earache, sore throat. Cardiac: No chest pain, palpitations, shortness of breath Resp: No cough, wheeze. GI: No reflux symptoms, food intolerance, bowel changes. : No urinary frequency, dysuria. MS: No new pain or joint complaints. Chronic pain, pain mgt. PHYSICAL EXAMINATION BP 118/56 (BP Site: Left Arm, BP Position: Sitting) Pulse 79 Resp 12 Wt 64.4 kg (142 lb) BMI 25.97 kg/m? General: Alert and oriented, no distress, pleasant and cooperative. Heart: Regular, normal S1 and S2, no murmurs, rubs, or gallops Lungs: Clear to auscultation bilaterally Abdomen: Benign Extremities: Feet/ankles without edema, posterior tibial pulses full and symmetrical Fine tremor noted. Normal motor tone. Diffuse arthritic changes throughout Health Maintenance List DTAP,TDAP,TD(1 - Tdap) due on 08/08/1967 INFLUENZA(1) due on 01/06/2018 STATIN MED ADHERENCE due on 01/06/2018 LDL CHOLESTEROL due on 09/12/2018 COLORECTAL CANCER SCREENING,SEE MODIFIER due on 11/21/2018 ANNUAL PCP TEAM CHRONIC DISEASE VISIT due on 12/11/2018 BLOOD PRESSURE CONTROLLED due on 12/21/2018 DIABETES SCREEN due on 09/12/2020 LIPID SCREEN due on 09/12/2022 ABDOMINAL AORTIC ANEURYSM SCREENING TOPIC Completed ADULT PREVNAR-13 Completed HEPATITIS C SCREENING Completed PNEUMOVAX AGE 65 AND OVER WITH 5YR LOOKBACK Completed Data reviewed Assessment/Plan: (I10) Essential hypertension (primary encounter diagnosis) Comment: well controlled. Plan: maintain Rx. (G25.0) Essential tremor Comment: this is a new Dx though ongoing for a while Plan: reassurance (M51.9) Lumbar disc disease Comment: gait is wobbly Plan: CONSULT TO PHYSICAL THERAPY (M48.00) Spinal stenosis, unspecified spinal region Comment: Plan: CONSULT TO PHYSICAL THERAPY (R26.9) Gait disturbance Comment: Plan: CONSULT TO PHYSICAL THERAPY (J44.9) Chronic obstructive pulmonary disease, unspecified COPD type (HCC) Comment: due for appt Plan: CONSULT TO PULM/CRITICAL CARE No medications selected for refill. RTO: 6 mos if all is well Julita Alberto MD CNOV Observed: 01/01/2018 Status: COMPLETED Source: [place] 11:20 AM [facility] REPOSITORY Office Visit (FPWADS) KAMILLA DICKSON ([id number]) 1950 M Date Time Provider Department 01/01/18 11:20 AM JULITA ALBERTO FPMYRNA During your visit today, we recorded the following information about you: Pulse Respiration Blood pressure Weight 79/minute 12/minute 118/56 64.4 kg Julita Alberto MD 01/01/2018 12:03 PM Signed Chief Complaint Patient presents with: Follow Up: 3 month check HPI Kamilla Dickson is a 67 year old male who presents here today for follow-up of assorted issues. . Chronic arthritis. Sees pain mgt. Generally down to 3 mo visit. Hip, back. He's having issues with tremor, gait. Shakes , paperwork notes shaky handwriting. Past medical history, appointments, medications, allergies reviewed. Previous Medical History PAST MEDICAL HISTORY Diagnosis Date - Arthritis back and hips - Atrial fibrillation (HCC) - COPD (chronic obstructive pulmonary disease) (HCC) - Degenerative disc disease - Dehydration 2016 Associated with MATHIEU. - Depression - Herniated disc - High blood pressure - High cholesterol - Nocturnal hypoxemia - OA (osteoarthritis) - Seasonal allergies - Spinal stenosis Previous Surgical History PAST SURGICAL HISTORY Procedure Laterality Date - CARPAL TUNNEL bilateral. done by [facility] - CATARACT SURGERY, [facility] - COLONOSCOP W/ OR W/O BRSH SPEC 11/21/13 Colonoscopy - COLONOSCOPY AND POLYPECTOMY 01/04/08 hyperplastic polyps, diverticulosis - CORONARY ARTERY BYPASS GRAFT HX 2013 2 artery Family History FAMILY HISTORY Problem Relation Age of Onset - Cancer Father Some GI cancer. - None Mother of old age at 99 years old. - Ischemic Heart Disease Paternal Grandmother Heart attack at old age. Patient Allergies ALLERGIES Allergen Reactions - No Known Allergies Other: See Comments Current Medications Current Outpatient Prescriptions on File Prior to Visit: ipratropium (ATROVENT) 0.02 % nebulizer solution Use 2.5 mL via nebulizer four times daily. budesonide (PULMICORT) 0.5 mg/2 mL nebulizer solution Use 2 mL via nebulizer twice daily. albuterol HFA (PROAIR HFA) 90 mcg/actuation inhaler 2 Puffs every 6 hours as needed. Take as directed albuterol (PROVENTIL) 2.5 mg /3 mL (0.083 %) nebulizer solution Use 3 mL via nebulizer every 4 hours as needed for Wheezing/Shortness of Breath. Use over 5-15minutes. nicotine (NICODERM CQ) 14 mg/24 hr Apply 1 Patch as directed every 24 hours. spironolactone (ALDACTONE) 25 mg tablet Take 0.5 tablets by mouth once daily. hydroxychloroquine (PLAQUENIL) 200 mg tablet TAKE 2 TABLETS BY MOUTH ONCE DAILY metoprolol succinate ER (TOPROL XL) 25 mg 24 hr tablet Take 1 tablet by mouth once daily. alendronate (FOSAMAX) 70 mg tablet Take 1 tablet by mouth once each week. tamsulosin ER (FLOMAX) 0.4 mg cp24 Take 1 capsule by mouth once daily. COLCRYS 0.6 mg tablet Take 0.6 mg by mouth twice daily. traMADol (ULTRAM) 50 mg tablet Take 50 mg by mouth four times daily as needed (can take 1 at bedtime as needed). omeprazole (PRILOSEC) 20 mg capsule Take 1 capsule by mouth daily before breakfast. 1/2 hr before meal. atorvastatin (LIPITOR) 10 mg tablet Take 1 tablet by mouth daily at bedtime. For cholesterol. pregabalin (LYRICA) 150 mg capsule Take 1 capsule by mouth twice daily. baclofen (LIORESAL) 10 mg tablet Take 1 tablet by mouth twice daily as needed. allopurinol (ZYLOPRIM) 100 mg tablet Take 1 tablet by mouth once daily. colchicine (MITIGARE) 0.6 mg capsule Take 1 capsule by mouth twice daily. (Patient taking differently: Take 0.6 mg by mouth as needed. ) nitroglycerin sublingual (NITROQUICK) 0.4 mg SL tablet Dissolve 1 tablet under the tongue every 5 minutes as needed for Chest Pain (If chest pain no better after 3 tablets, call 911). COMPOUNDED PRESCRIPTION Aerosol nebulizer. Dx COPD. Ciclopirox (LOPROX) 8 % solution Apply 1 application to affected area daily at bedtime. ascorbic acid (VITAMIN C) 500 mg tablet Take 2 tablets by mouth once daily. COMPOUNDED PRESCRIPTION Please perform nocturnal oximetry on room air.Diagnosis: Hypoxia Please fax results to [phone] Cholecalciferol, Vitamin D3, 2,000 unit cap Take 1 tablet by mouth once daily. aspirin 81 mg chewable tablet Take 2 tablets by mouth once daily. therapeutic multivitamin (THERA VITAMIN) tablet Take 1 tablet by mouth daily with breakfast. No current facility-administered medications on file prior to visit. 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 [place]. Lives with his sister Samira , she's incapacitated due to above knee amputation (cirulation) Exercise: Negligible. Diet: lives on [employer] BITEX. 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 ROS: General: Feels well, no weight changes, fever, chills. HEENT: No sinus congestion, earache, sore throat. Cardiac: No chest pain, palpitations, shortness of breath Resp: No cough, wheeze. GI: No reflux symptoms, food intolerance, bowel changes. : No urinary frequency, dysuria. MS: No new pain or joint complaints. Chronic pain, pain mgt. PHYSICAL EXAMINATION BP 118/56 (BP Site: Left Arm, BP Position: Sitting) Pulse 79 Resp 12 Wt 64.4 kg (142 lb) BMI 25.97 kg/m? General: Alert and oriented, no distress, pleasant and cooperative. Heart: Regular, normal S1 and S2, no murmurs, rubs, or gallops Lungs: Clear to auscultation bilaterally Abdomen: Benign Extremities: Feet/ankles without edema, posterior tibial pulses full and symmetrical Fine tremor noted. Normal motor tone. Diffuse arthritic changes throughout Health Maintenance List DTAP,TDAP,TD(1 - Tdap) due on 08/08/1967 INFLUENZA(1) due on 01/06/2018 STATIN MED ADHERENCE due on 01/06/2018 LDL CHOLESTEROL due on 09/12/2018 COLORECTAL CANCER SCREENING,SEE MODIFIER due on 11/21/2018 ANNUAL PCP TEAM CHRONIC DISEASE VISIT due on 12/11/2018 BLOOD PRESSURE CONTROLLED due on 12/21/2018 DIABETES SCREEN due on 09/12/2020 LIPID SCREEN due on 09/12/2022 ABDOMINAL AORTIC ANEURYSM SCREENING TOPIC Completed ADULT PREVNAR-13 Completed HEPATITIS C SCREENING Completed PNEUMOVAX AGE 65 AND OVER WITH 5YR LOOKBACK Completed Data reviewed Assessment/Plan: (I10) Essential hypertension (primary encounter diagnosis) Comment: well controlled. Plan: maintain Rx. (G25.0) Essential tremor Comment: this is a new Dx though ongoing for a while Plan: reassurance (M51.9) Lumbar disc disease Comment: gait is wobbly Plan: CONSULT TO PHYSICAL THERAPY (M48.00) Spinal stenosis, unspecified spinal region Comment: Plan: CONSULT TO PHYSICAL THERAPY (R26.9) Gait disturbance Comment: Plan: CONSULT TO PHYSICAL THERAPY (J44.9) Chronic obstructive pulmonary disease, unspecified COPD type ([facility]) Comment: due for appt Plan: CONSULT TO PULM/CRITICAL CARE No medications selected for refill. RTO: 6 mos if all is well Julita Alberto MD Referring Provider: SELF [200] Allergies As of Date: 01/01/2018 Noted Allergy Reaction NO KNOWN ALLERGIES 01/13/2017 14 - Other: See Comments Date Reviewed: 01/01/2018 Reviewed by: Nadya Bailey Ma - Fully Assessed Reason for Visit: Follow Up [171] Cmt: 3 month check Primary Visit Diagnosis:Essential hypertension [I10] Other Visit Diagnoses:Essential tremor [G25.0] Lumbar disc disease [M51.9] Spinal stenosis, unspecified spinal region [M48.00] Gait disturbance [R26.9] Chronic obstructive pulmonary disease, unspecified COPD type (HCC) [J44.9] Order(s):CONSULT TO PHYSICAL THERAPY [9032] Order #: [id number]: 1 CONSULT TO PULM/CRITICAL CARE [642871] Order #: [id number]: 1 Prescriptions as of 01/01/2018 Sig: IPRATROPIUM BROMIDE 0.02 % SO* Use 2.5 mL via nebulizer four* BUDESONIDE 0.5 MG/2 ML SUSPEN* Use 2 mL via nebulizer twice * ALBUTEROL SULFATE HFA 90 MCG/* 2 Puffs every 6 hours as need* ALBUTEROL SULFATE 2.5 MG/3 ML* Use 3 mL via nebulizer every * NICOTINE 14 MG/24 HR DAILY TR* Apply 1 Patch as directed nicol* SPIRONOLACTONE 25 MG TABLET Take 0.5 tablets by mouth onc* HYDROXYCHLOROQUINE 200 MG TAB* TAKE 2 TABLETS BY MOUTH ONCE * METOPROLOL SUCCINATE ER 25 MG* Take 1 tablet by mouth once d* ALENDRONATE 70 MG TABLET Take 1 tablet by mouth once e* TAMSULOSIN 0.4 MG CAPSULE Take 1 capsule by mouth once * COLCRYS 0.6 MG TABLET Take 0.6 mg by mouth twice da* TRAMADOL 50 MG TABLET Take 50 mg by mouth four time* OMEPRAZOLE 20 MG CAPSULE,YOKO* Take 1 capsule by mouth daily* ATORVASTATIN 10 MG TABLET Take 1 tablet by mouth daily * PREGABALIN 150 MG CAPSULE Take 1 capsule by mouth twice* BACLOFEN 10 MG TABLET Take 1 tablet by mouth twice * ALLOPURINOL 100 MG TABLET Take 1 tablet by mouth once d* COLCHICINE 0.6 MG CAPSULE Take 1 capsule by mouth twice* Patient taking differently: Take 0.6 mg by mouth as neede* NITROGLYCERIN 0.4 MG SUBLINGU* Dissolve 1 tablet under the t* COMPOUNDED PRESCRIPTION Aerosol nebulizer. Dx COPD. CICLOPIROX 8 % TOPICAL SOLUTI* Apply 1 application to affect* ASCORBIC ACID (VITAMIN C) 500* Take 2 tablets by mouth once * CHOLECALCIFEROL (VITAMIN D3) * Take 1 tablet by mouth once d* ASPIRIN 81 MG CHEWABLE TABLET Take 2 tablets by mouth once * THERAPEUTIC MULTIVITAMIN TABL* Take 1 tablet by mouth daily * Problem List As Of Date 01/01/2018 Noted Resolved COPD (chronic obstructive pulmonary disease) [J*INVALID FOR* Priority: B More... Essential hypertension [I10] INVALID FOR* Priority: C More... Chronic atrial fibrillation (HCC) [I48.2] INVALID FOR*06/15/2016 Priority: A More... Hyperlipidemia [E78.5] INVALID FOR* Priority: E More... Degenerative disc disease [SZZ6026] INVALID FOR* Lumbar disc disease [M51.9] INVALID FOR* Spinal stenosis [M48.00] INVALID FOR* Priority: K More... 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 CAD (coronary artery disease), [place] coronary *INVALID FOR* Priority: A More... Bronchitis [J40] INVALID FOR* Priority: B More... Preop testing [Z01.818] INVALID FOR*01/17/2014 More... More... Mechanically assisted ventilation (HCC) [Z99.11]INVALID FOR*01/18/2014 Priority: B More... Hypotension [I95.9] INVALID FOR*01/24/2014 Priority: C More... Pain [R52] INVALID FOR* Priority: D More... Leukocytosis [D72.829] INVALID FOR* Priority: I More... Hyponatremia [E87.1] INVALID FOR* Priority: F More... 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.1] INVALID FOR* GERD (gastroesophageal reflux disease) [K21.9] INVALID FOR* Osteopenia [M85.80] INVALID FOR* Lumbar stenosis with neurogenic claudication [M*INVALID FOR* Facet arthropathy, lumbar [M46.96] INVALID FOR* Low back pain [M54.5] INVALID FOR*01/29/2015 Cancer of skin, squamous cell [C44.92] INVALID FOR* Osteoporosis [M81.0] INVALID FOR* Spinal stenosis of lumbar region with radiculop*INVALID FOR*01/29/2015 Bilateral low back pain without sciatica [M54.5]INVALID FOR*10/21/2015 Adjustment disorder with mixed anxiety and depr*INVALID FOR* Chronic bilateral low back pain without sciatic*INVALID FOR*10/22/2015 Decreased pulses in feet [R09.89] INVALID FOR* Dehydration [E86.0] INVALID FOR* More... Abnormal echocardiogram [R93.1] INVALID FOR* PVC's (premature ventricular contractions) [I49*INVALID FOR* SVT (supraventricular tachycardia) (HCC) [I47.1]INVALID FOR* Medications Discontinued During This Encounter COMPOUNDED PRESCRIPTION 1 Ea* 0 08/21/2014 01/01/2018 Class: Print RX Sig: Please perform nocturnal oximetry on room air. Diagnosis: Hypoxia Please fax results to [phone] Disc: Reason for discontinue is not on file. Encounter Status:Closed by NETO ALBERTO MD on 01/01/18 HISTORY AND PHYSICAL Observed: 12/22/2017 Status: F Source: [facility] 8:[address] [facility] REPOSITORY [facility] Medical Records Department [address] [place] [id number] History and Physical 12/16/172009 MR#: [id number] Acct: [id number] Name: KAMILLA DICKSON Rep #: [id number] : 1950 67 From: Vinayak Quesada MD PCP: Neto Alberto MD Status: DIS ANTHONY Y Location: [place] [address] ADDENDUM by Vinayak Quesada MD on 12/22/17 at 0805 Code Visit Patient smokes cigarettes. 12/22/17 0806 <Electronically signed by Vinayak Quesada MD> Date Vinayak Quesada MD cc: Neto Alberto MD; Vinayak Quesada MD * Signed Problem List (1) Aspiration into airway Status: Acute (2) DDD (degenerative disc disease) Status: Chronic (3) Hx of CABG Status: Chronic (4) Benign prostatic hypertrophy Status: Chronic (5) CAD (coronary artery disease) Status: Chronic (6) COPD (chronic obstructive pulmonary disease) Status: Chronic History of Present Illness Date of Admission: 12/16/17 Chief Complaint: Choking spell on taco crust The patient is a 67 year old M with a significant history of COPD, home oxygen use at 2 L at night; paroxysmal A. fib;tobacco abuse; heart failure; skin cancer status post surgery; CAD status post double CABG who presented because of a choking spell about 3 hours prior to his admission. The patient feels like there is something scratching at the back of his throat. He has been coughing profusely. Patient visited his sister who is inpatient at our TCU. While at our hospital the patient began to choke on taco crust that he was eating. He was subsequently brought to the emergency department. At emergency department he was given a dose of Unasyn. A CT scan was done and it showed narrowing of the upper trachea; unremarkable otherwise. Also patient reports that 3 times in the last 3 weeks he has been choking on food. He also reports a chronic cough although he admits that his baseline cough has worsened with his food encounter aforementioned. Past Medical History Past Medical History (Chronic Problems): Chronic Problems Benign prostatic hypertrophy (Chronic) Hypertension (Chronic) Chronic respiratory failure (Chronic) COPD (chronic obstructive pulmonary disease) (Chronic) Paroxysmal atrial fibrillation (Chronic) DDD (degenerative disc disease) (Chronic) CAD (coronary artery disease) (Chronic) Hx of CABG (Chronic) Myoclonic jerking (Chronic) Allergies No Known Allergies Allergy (Verified 12/16/17 18:11) Home Medications: Ambulatory Orders Medication Instructions Recorded Surgical History: cataract, - - Bilateral carpal tunnel surgery Psychiatric History: No pertinent psych hx Smoking Status: Current every day smoker - *Family History Maternal History Items: Asthma Paternal History Items: No pertinent history Sibling History Items: No pertinent history Review of Systems Constitutional: Denies: Chills, Fever, Weight Change HEENT: Denies: Head Aches, Sinus Congestion, Sinus Drainage Cardiovascular: Denies: Chest Pain, Palpitations Respiratory: Reports: Cough Gastrointestinal: Denies: Abdominal Pain, Nausea, Vomiting Genitourinary: Denies: Dysuria Musculoskeletal: Denies: Joint Pain, Joint Tenderness Skin: Denies: Rash, Wounds Neurological: Denies: Numbness, Tingling, Focal weakness Psychiatric: Denies: Homicidal Ideations, Suicidal Ideations Hematologic/ Lymphatic: Denies: Easy Bruising, Easy Bleeding VTE Information - Inpt Only VTE Present on Admission: No VTE Mechan Device Prophylaxis: None VTE Pharm Prophylaxis ordered?: Yes Patient Problems: Active and Suspected Problems Aspiration into airway (Acute) - Physical Exam General: Alert, Oriented x3, Cooperative HEENT: Atraumatic, PERRLA, EOMI, Normocephalic Neck: Supple, No JVD, Negative Carotid Bruits Lungs: Wheezes - Mild, - - Patient was coughing at the time of my examination. Cardiovascular: Regular rate, No murmurs Abdomen: Bowel Sounds Present, Soft, Non Tender Extremities: No edema, Capillary Refill Less than 3 Seconds Skin: No rashes, No breakdown Musculoskeletal: No Tenderness to Palpation of Joints or Extremities Neurological: Cranial nerves II-XII grossly intact Psych/Mental Status: Normal Affect, Appropriate Vital Signs Temp Pulse Resp BP Pulse Ox 97.7 F L 115 H 18 154/105 H 86 12/16/17 18:11 12/16/17 18:11 12/16/17 18:11 12/16/17 18:11 12/16/17 18:11 Oxygen Flow Rate (L/min) 2 Oxygen Delivery Method Nasal Cannula Weight: 67.4 kg Body Mass Index (BMI) 27.1 Laboratory Tests Past 24 Hrs WBC 9.4 RBC 4.93 Hgb 15.1 Hct 46.3 MCV 93.9 MCH 30.6 MCHC 32.6 Assessment/Plan All Active Problems Aspiration into airway (Acute) Sepsis (Ruled-out) The patient is a 67 year old M with a significant history of COPD, home oxygen use at 2 L at night; paroxysmal A. fib;tobacco abuse; heart failure; skin cancer status post surgery; CAD status post double CABG who presented because of an acute choking spell and a recent history of choking on food. Aspiration CT chest unremarkable. Xray Chest unremarkable Patient to be clinically monitored. The plan was that if patient continued to cough he will see pulmonary for possible bronchoscopy for removal of foreign material. However while on the inpatient burt, patient reported alleged that he (patient) might have coughed up the food into a tissue. We will hold off pulmonary consult for now. Will hold off antibiotics for aspiration pneumonia; and prednisone for pneumonitis as there are no such evidence at this time. We will hold off all p.o. medications at this time. Because patient reports history of recent choking spells will consult speech for swallow eval. Depending upon speech recommendation patient may be a candidate for modified barium swallow evaluation. The patient takes alendronate at home. This may be contributing to esophagitis; and this may deserve further exploration. COPD Scheduled DuoNeb and as needed albuterol Albuterol prn HTN Home anti-hypertensive medications held because of dysphagia. As needed labetalol. Degenerative disc disease and generalized osteoarthritis Tramadol p.o. held Morphine as needed. Tobacco abuse Nicotine patch continued DVT prophylaxis subcutaneous heparin. This note was generated with [employer] dictation software. It may contain incorrect words, spelling, and punctuation that were not noted before signingthe note. Code Visit OBSV E AND M: 07879 Initial observation care L3 12/17/17 0402 <Electronically signed by Vinayak Quesada MD> Date Vinayak Quesada MD Cosigner Signature: Date (if applicable) CC: Neto Alberto MD; Vinayak Quesada MD Signed PROGRESS Observed: 12/21/2017 Status: COMPLETED Source: [place] 12:32 PM [facility] REPOSITORY HNO ID: [id number] Author: Debi Bowie Service: (none) Author Type: Physician Type: Progress Notes Filed: 12/21/2017 12:52 PM Note Text: HISTORY AND PHYSICAL [facility] 1950 REFERRING PHYSICIAN: Julita Alberto MD CHIEF COMPLAINT: Consult (difficulty swallowing) HPI: The patient is a 67 year old male referred for endoscopy. Kamilla notes no colon complaints. He had a colonoscopy performed by Dr. Marie in 2013 who found a small polyp and recommended 5 year follow-up endoscopy. The patient was referred for a complaint of difficulty swallowing. For the past few months, he is noticed episodes of choking while eating food and difficulty swallowing. He notes some discomfort in the upper esophagus with swallowing. He had a choking episode and presented to [facility] emergency department on December 17. He had a apparently cookie swallowing study - this did not demonstrate true aspiration. It was recommended he eats slowly and swallow while sitting upright. The patient has a very prolonged history of tobacco use. Recent pulmonary function tests demonstrate an FEV1 of 0.8 to or 33% predicted. He is at a history of coronary bypass grafting with clipping of his left atrial appendage. Kamilla has not undergone prior upper endoscopy. The patient is being seen by me today at the request of Dr. Julita Alberto MD for my opinion and advice regarding dysphagia. PAST MEDICAL HISTORY Diagnosis Date - Arthritis back and hips - Atrial fibrillation (HCC) - COPD (chronic obstructive pulmonary disease) (HCC) - Degenerative disc disease - Dehydration 2015 Associated with MATHIEU. - Depression - Herniated disc - High blood pressure - High cholesterol - Nocturnal hypoxemia - OA (osteoarthritis) - Seasonal allergies - Spinal stenosis PAST SURGICAL HISTORY Procedure Laterality Date - CARPAL TUNNEL bilateral. done by [facility] - CATARACT SURGERY, [facility] - COLONOSCOP W/ OR W/O BRSH SPEC 11/21/13 Colonoscopy - COLONOSCOPY AND POLYPECTOMY 01/04/08 hyperplastic polyps, diverticulosis - CORONARY ARTERY BYPASS GRAFT HX 2013 2 artery Current Outpatient Prescriptions: nicotine (NICODERM CQ) 14 mg/24 hr Apply 1 Patch as directed every 24 hours. spironolactone (ALDACTONE) 25 mg tablet Take 0.5 tablets by mouth once daily. albuterol (PROVENTIL) 2.5 mg /3 mL (0.083 %) nebulizer solution Use 3 mL via nebulizer every 4 hours as needed for Wheezing/Shortness of Breath. Use over 5-15minutes. hydroxychloroquine (PLAQUENIL) 200 mg tablet TAKE 2 TABLETS BY MOUTH ONCE DAILY metoprolol succinate ER (TOPROL XL) 25 mg 24 hr tablet Take 1 tablet by mouth once daily. alendronate (FOSAMAX) 70 mg tablet Take 1 tablet by mouth once each week. tamsulosin ER (FLOMAX) 0.4 mg cp24 Take 1 capsule by mouth once daily. COLCRYS 0.6 mg tablet Take 0.6 mg by mouth twice daily. traMADol (ULTRAM) 50 mg tablet Take 50 mg by mouth four times daily as needed (can take 1 at bedtime as needed). ipratropium (ATROVENT) 0.02 % nebulizer solution Use 2.5 mL via nebulizer four times daily. budesonide (PULMICORT) 0.5 mg/2 mL nebulizer solution Use 2 mL via nebulizer twice daily. albuterol HFA (PROAIR HFA) 90 mcg/actuation inhaler 2 Puffs every 6 hours as needed. Take as directed omeprazole (PRILOSEC) 20 mg capsule Take 1 capsule by mouth daily before breakfast. 1/2 hr before meal. atorvastatin (LIPITOR) 10 mg tablet Take 1 tablet by mouth daily at bedtime. For cholesterol. pregabalin (LYRICA) 150 mg capsule Take 1 capsule by mouth twice daily. baclofen (LIORESAL) 10 mg tablet Take 1 tablet by mouth twice daily as needed. allopurinol (ZYLOPRIM) 100 mg tablet Take 1 tablet by mouth once daily. colchicine (MITIGARE) 0.6 mg capsule Take 1 capsule by mouth twice daily. (Patient taking differently: Take 0.6 mg by mouth as needed. ) nitroglycerin sublingual (NITROQUICK) 0.4 mg SL tablet Dissolve 1 tablet under the tongue every 5 minutes as needed for Chest Pain (If chest pain no better after 3 tablets, call 911). COMPOUNDED PRESCRIPTION Aerosol nebulizer. Dx COPD. Ciclopirox (LOPROX) 8 % solution Apply 1 application to affected area daily at bedtime. ascorbic acid (VITAMIN C) 500 mg tablet Take 2 tablets by mouth once daily. COMPOUNDED PRESCRIPTION Please perform nocturnal oximetry on room air.Diagnosis: HypoxiaPlease fax results to [phone] Cholecalciferol, Vitamin D3, 2,000 unit cap Take 1 tablet by mouth once daily. aspirin 81 mg chewable tablet Take 2 tablets by mouth once daily. therapeutic multivitamin (THERA VITAMIN) tablet Take 1 tablet by mouth daily with breakfast. No current facility-administered medications for this visit. 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 [place]. Lives with his sister Samira , she's incapacitated due to above knee amputation (cirulation) Exercise: Negligible. Diet: lives on sandwiches. 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 FAMILY HISTORY: FAMILY HISTORY Problem Relation Age of Onset - Cancer Father Some GI cancer. - None Mother of old age at 99 years old. - Ischemic Heart Disease Paternal Grandmother Heart attack at old age. REVIEW OF SYMPTOMS: The review of systems data was entered by the nurse and reviewed by me There are no exam notes on file for this visit. PHYSICAL EXAMINATION: General: The patient is 67 year old male, well nourished, well hydrated in no acute distress. The patient is oriented to time, place, and person. VITALS: Blood pressure 118/56, pulse 60, weight 63 kg (139 lb). Body mass index is 25.42 kg/m?. HEENT: Normal cephalic, ataumatic, pupils are equally round, sclera are anicteric, mucous membranes are moist, oropharynx is clear. Neck has no masses, asymmetry or lymphadenopathy. Thyroid is unremarkable. Respiratory: Clear to auscultation and percussion. Normal respiratory excursion and pattern. Cardiac: Examination is regular rate and rhythm. Abdominal exam: Soft, nontender, with no palpable masses. No hepatosplenomegaly. No palpable hernias. Rectal exam: exam deferred Extremities: no clubbing, cyanosis or edema. No adenopathy. Other: LABORATORY VALUES: As Noted RADIOLOGIC STUDIES: As Noted Assessment IMPRESSION: Dysphagia, questionable aspiration PLAN: I plan to perform upper endoscopy. We discussed the risks and benefits of the planned endoscopy. I have informed the patient that complications can occur including failure to complete the endoscopy and perforation. The patient had the opportunity to ask questions concerning the planned endoscopy. My staff has also explained the procedure to the patient in understandable terms and has given the patient printed material concerning the procedure. The patient freely consents to surgery. I plan for monitored anesthetic care. Diagnoses: (R13.10) Dysphagia, unspecified type (primary encounter diagnosis) (T17.908A) Aspiration into airway, initial encounter My findings have been communicated to Dr. Julita Alberto MD via shared medical record. This note will be forwarded to Dr. Julita Alberto MD. Return to Clinic: The patient is instructed to follow-up with me after the testing has been completed. Debi Bowie MD CNOV Observed: 12/21/2017 Status: COMPLETED Source: [place] 10:00 AM [facility] REPOSITORY Office Visit (GENSWS) KAMILLA DICKSON ([id number]) 1950 M Date Time Provider Department 12/21/17 10:00 AM DEBI BOWIE GENERNIE During your visit today, we recorded the following information about you: Pulse Blood pressure Weight 60/minute 118/56 63 kg Debi Bowie MD 12/21/2017 12:52 PM Signed HISTORY AND PHYSICAL Kamilla Dickson 1950 REFERRING PHYSICIAN: Julita Alberto MD CHIEF COMPLAINT: Consult (difficulty swallowing) HPI: The patient is a 67 year old male referred for endoscopy. Kamilla notes no colon complaints. He had a colonoscopy performed by Dr. Marie in 2013 who found a small polyp and recommended 5 year follow-up endoscopy. The patient was referred for a complaint of difficulty swallowing. For the past few months, he is noticed episodes of choking while eating food and difficulty swallowing. He notes some discomfort in the upper esophagus with swallowing. He had a choking episode and presented to [facility] emergency department on December 17. He had a apparently cookie swallowing study - this did not demonstrate true aspiration. It was recommended he eats slowly and swallow while sitting upright. The patient has a very prolonged history of tobacco use. Recent pulmonary function tests demonstrate an FEV1 of 0.8 to or 33% predicted. He is at a history of coronary bypass grafting with clipping of his left atrial appendage. Kamilla has not undergone prior upper endoscopy. The patient is being seen by me today at the request of Dr. Julita Alberto MD for my opinion and advice regarding dysphagia. PAST MEDICAL HISTORY Diagnosis Date - Arthritis back and hips - Atrial fibrillation (HCC) - COPD (chronic obstructive pulmonary disease) (HCC) - Degenerative disc disease - Dehydration 2015 Associated with MATHIEU. - Depression - Herniated disc - High blood pressure - High cholesterol - Nocturnal hypoxemia - OA (osteoarthritis) - Seasonal allergies - Spinal stenosis PAST SURGICAL HISTORY Procedure Laterality Date - CARPAL TUNNEL bilateral. done by [facility] - CATARACT SURGERY, [facility] - COLONOSCOP W/ OR W/O BRSH SPEC 11/21/13 Colonoscopy - COLONOSCOPY AND POLYPECTOMY 01/04/08 hyperplastic polyps, diverticulosis - CORONARY ARTERY BYPASS GRAFT HX 2013 2 artery Current Outpatient Prescriptions: nicotine (NICODERM CQ) 14 mg/24 hr Apply 1 Patch as directed every 24 hours. spironolactone (ALDACTONE) 25 mg tablet Take 0.5 tablets by mouth once daily. albuterol (PROVENTIL) 2.5 mg /3 mL (0.083 %) nebulizer solution Use 3 mL via nebulizer every 4 hours as needed for Wheezing/Shortness of Breath. Use over 5-15minutes. hydroxychloroquine (PLAQUENIL) 200 mg tablet TAKE 2 TABLETS BY MOUTH ONCE DAILY metoprolol succinate ER (TOPROL XL) 25 mg 24 hr tablet Take 1 tablet by mouth once daily. alendronate (FOSAMAX) 70 mg tablet Take 1 tablet by mouth once each week. tamsulosin ER (FLOMAX) 0.4 mg cp24 Take 1 capsule by mouth once daily. COLCRYS 0.6 mg tablet Take 0.6 mg by mouth twice daily. traMADol (ULTRAM) 50 mg tablet Take 50 mg by mouth four times daily as needed (can take 1 at bedtime as needed). ipratropium (ATROVENT) 0.02 % nebulizer solution Use 2.5 mL via nebulizer four times daily. budesonide (PULMICORT) 0.5 mg/2 mL nebulizer solution Use 2 mL via nebulizer twice daily. albuterol HFA (PROAIR HFA) 90 mcg/actuation inhaler 2 Puffs every 6 hours as needed. Take as directed omeprazole (PRILOSEC) 20 mg capsule Take 1 capsule by mouth daily before breakfast. 1/2 hr before meal. atorvastatin (LIPITOR) 10 mg tablet Take 1 tablet by mouth daily at bedtime. For cholesterol. pregabalin (LYRICA) 150 mg capsule Take 1 capsule by mouth twice daily. baclofen (LIORESAL) 10 mg tablet Take 1 tablet by mouth twice daily as needed. allopurinol (ZYLOPRIM) 100 mg tablet Take 1 tablet by mouth once daily. colchicine (MITIGARE) 0.6 mg capsule Take 1 capsule by mouth twice daily. (Patient taking differently: Take 0.6 mg by mouth as needed. ) nitroglycerin sublingual (NITROQUICK) 0.4 mg SL tablet Dissolve 1 tablet under the tongue every 5 minutes as needed for Chest Pain (If chest pain no better after 3 tablets, call 911). COMPOUNDED PRESCRIPTION Aerosol nebulizer. Dx COPD. Ciclopirox (LOPROX) 8 % solution Apply 1 application to affected area daily at bedtime. ascorbic acid (VITAMIN C) 500 mg tablet Take 2 tablets by mouth once daily. COMPOUNDED PRESCRIPTION Please perform nocturnal oximetry on room air.Diagnosis: HypoxiaPlease fax results to [phone] Cholecalciferol, Vitamin D3, 2,000 unit cap Take 1 tablet by mouth once daily. aspirin 81 mg chewable tablet Take 2 tablets by mouth once daily. therapeutic multivitamin (THERA VITAMIN) tablet Take 1 tablet by mouth daily with breakfast. No current facility-administered medications for this visit. 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 [place]. Lives with his sister Samira , she's incapacitated due to above knee amputation (cirulation) Exercise: Negligible. Diet: lives on sandwiches. 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 FAMILY HISTORY: FAMILY HISTORY Problem Relation Age of Onset - Cancer Father Some GI cancer. - None Mother of old age at 99 years old. - Ischemic Heart Disease Paternal Grandmother Heart attack at old age. REVIEW OF SYMPTOMS: The review of systems data was entered by the nurse and reviewed by me There are no exam notes on file for this visit. PHYSICAL EXAMINATION: General: The patient is 67 year old male, well nourished, well hydrated in no acute distress. The patient is oriented to time, place, and person. VITALS: Blood pressure 118/56, pulse 60, weight 63 kg (139 lb). Body mass index is 25.42 kg/m?. HEENT: Normal cephalic, ataumatic, pupils are equally round, sclera are anicteric, mucous membranes are moist, oropharynx is clear. Neck has no masses, asymmetry or lymphadenopathy. Thyroid is unremarkable. Respiratory: Clear to auscultation and percussion. Normal respiratory excursion and pattern. Cardiac: Examination is regular rate and rhythm. Abdominal exam: Soft, nontender, with no palpable masses. No hepatosplenomegaly. No palpable hernias. Rectal exam: exam deferred Extremities: no clubbing, cyanosis or edema. No adenopathy. Other: LABORATORY VALUES: As Noted RADIOLOGIC STUDIES: As Noted Assessment IMPRESSION: Dysphagia, questionable aspiration PLAN: I plan to perform upper endoscopy. We discussed the risks and benefits of the planned endoscopy. I have informed the patient that complications can occur including failure to complete the endoscopy and perforation. The patient had the opportunity to ask questions concerning the planned endoscopy. My staff has also explained the procedure to the patient in understandable terms and has given the patient printed material concerning the procedure. The patient freely consents to surgery. I plan for monitored anesthetic care. Diagnoses: (R13.10) Dysphagia, unspecified type (primary encounter diagnosis) (T17.248A) Aspiration into airway, initial encounter My findings have been communicated to Dr. Julita Alberto MD via shared medical record. This note will be forwarded to Dr. Julita Alberto MD. Return to Clinic: The patient is instructed to follow-up with me after the testing has been completed. MD Veena Yadav LPN 12/21/2017 12:47 PM Signed REVIEW OF SYSTEMS: General: The patient NOTES fatigue, denies weight loss, denies weight gain, denies feeling hot, and denies feelings of cold. Eyes: The patient denies glaucoma, NOTES eye injury/surgery, wears glasses or contacts. Ear/Nose/Throat: The patient NOTES allergies, NOTES hayfever, denies ear infections, and denies bloody noses. Cardiovascular: The patient denies chest pain, NOTES heart disease, NOTES high blood pressure,denies cardiac stent, denies prior heart attack, NOTES irregular heart beat, NOTES high cholesterol, denies poor circulation, denies heart failure, other cardiac issues, NOTES claudication, denies cold feet, denies peripheral arterial stent. Respiratory: The patient denies tuberculosis, NOTES pneumonia, NOTES frequent cough, denies pulmonary embolism, NOTES shortness of breath, and denies coughing up blood. Gastrointestinal: The patient NOTES difficulty swallowing, denies acid reflux, denies ulcers, denies vomiting, denies jaundice/hepatitis, denies gallbladder problems, denies black or tarry stools, denies hemorrhoids, denies bleeding from rectum, denies diverticulitis, denies constipation, denies diarrhea, denies loss of stool control, and denies hernias. Kidney/Bladder: The patient denies kidney stones, denies urine infections, and denies bloody urine. Skin: The patient NOTES a history of skin cancer, denies bleeding/changing moles, and denies a history of skin rash. Neurologic: The patient denies a history of epilepsy/convulsions, denies headaches, denies head/spinal injuries, and denies stroke/TIA. Psychiatric: The patient denies psychiatric medications, denies depression, and denies voices, denies substance abuse. Endocrine: The patient denies thyroid disorders, denies diabetes, and denies hormonal problems. Hematologic: The patient NOTES a history of bruising, denies bleeding, and denies anemia, denies blood clots. Infections: The patient NOTES a history of measles and mumps, denies rheumatic fever, and denies sexually transmitted diseases. Musculoskeletal: The patient NOTES back pain/injury, NOTES back problems, denies sciatica, NOTES knee/foot trouble,NOTES arthritis, or NOTES gout. When was patient's last Mammogram screening? N/A Last Colonoscopy: 2013 Veena Galeano LPN Referring Provider: JULITA ALBERTO [[id number]] Allergies As of Date: 12/21/2017 Noted Allergy Reaction NO KNOWN ALLERGIES 01/13/2017 14 - Other: See Comments Date Reviewed: 12/21/2017 Reviewed by: Debi Bowie - Fully Assessed Reason for Visit: Consult [173] Cmt: difficulty swallowing Primary Visit Diagnosis:Dysphagia, unspecified type [R13.10] Other Visit Diagnoses:Aspiration into airway, initial encounter [T17.908A] Pulmonary emphysema, unspecified emphysema type (HCC) [J43.9] Prescriptions as of 12/21/2017 Sig: NICOTINE 14 MG/24 HR DAILY TR* Apply 1 Patch as directed nicol* SPIRONOLACTONE 25 MG TABLET Take 0.5 tablets by mouth onc* ALBUTEROL SULFATE 2.5 MG/3 ML* Use 3 mL via nebulizer every * HYDROXYCHLOROQUINE 200 MG TAB* TAKE 2 TABLETS BY MOUTH ONCE * METOPROLOL SUCCINATE ER 25 MG* Take 1 tablet by mouth once d* ALENDRONATE 70 MG TABLET Take 1 tablet by mouth once e* TAMSULOSIN 0.4 MG CAPSULE Take 1 capsule by mouth once * COLCRYS 0.6 MG TABLET Take 0.6 mg by mouth twice da* TRAMADOL 50 MG TABLET Take 50 mg by mouth four time* IPRATROPIUM BROMIDE 0.02 % SO* Use 2.5 mL via nebulizer four* BUDESONIDE 0.5 MG/2 ML SUSPEN* Use 2 mL via nebulizer twice * ALBUTEROL SULFATE HFA 90 MCG/* 2 Puffs every 6 hours as need* OMEPRAZOLE 20 MG CAPSULE,YOKO* Take 1 capsule by mouth daily* ATORVASTATIN 10 MG TABLET Take 1 tablet by mouth daily * PREGABALIN 150 MG CAPSULE Take 1 capsule by mouth twice* BACLOFEN 10 MG TABLET Take 1 tablet by mouth twice * ALLOPURINOL 100 MG TABLET Take 1 tablet by mouth once d* COLCHICINE 0.6 MG CAPSULE Take 1 capsule by mouth twice* Patient taking differently: Take 0.6 mg by mouth as neede* NITROGLYCERIN 0.4 MG SUBLINGU* Dissolve 1 tablet under the t* COMPOUNDED PRESCRIPTION Aerosol nebulizer. Dx COPD. CICLOPIROX 8 % TOPICAL SOLUTI* Apply 1 application to affect* ASCORBIC ACID (VITAMIN C) 500* Take 2 tablets by mouth once * COMPOUNDED PRESCRIPTION Please perform nocturnal oxim* CHOLECALCIFEROL (VITAMIN D3) * Take 1 tablet by mouth once d* ASPIRIN 81 MG CHEWABLE TABLET Take 2 tablets by mouth once * THERAPEUTIC MULTIVITAMIN TABL* Take 1 tablet by mouth daily * Problem List As Of Date 12/21/2017 Noted Resolved COPD (chronic obstructive pulmonary disease) [J*INVALID FOR* Priority: B More... Essential hypertension [I10] INVALID FOR* Priority: C More... Chronic atrial fibrillation (HCC) [I48.2] INVALID FOR*06/15/2016 Priority: A More... Hyperlipidemia [E78.5] INVALID FOR* Priority: E More... Degenerative disc disease [JHN0287] INVALID FOR* Lumbar disc disease [M51.9] INVALID FOR* Spinal stenosis [M48.00] INVALID FOR* Priority: K More... 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 CAD (coronary artery disease), [place] coronary *INVALID FOR* Priority: A More... Bronchitis [J40] INVALID FOR* Priority: B More... Preop testing [Z01.818] INVALID FOR*01/17/2014 More... More... Mechanically assisted ventilation (HCC) [Z99.11]INVALID FOR*01/18/2014 Priority: B More... Hypotension [I95.9] INVALID FOR*01/24/2014 Priority: C More... Pain [R52] INVALID FOR* Priority: D More... Leukocytosis [D72.829] INVALID FOR* Priority: I More... Hyponatremia [E87.1] INVALID FOR* Priority: F More... 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.1] INVALID FOR* GERD (gastroesophageal reflux disease) [K21.9] INVALID FOR* Osteopenia [M85.80] INVALID FOR* Lumbar stenosis with neurogenic claudication [M*INVALID FOR* Facet arthropathy, lumbar [M46.96] INVALID FOR* Low back pain [M54.5] INVALID FOR*01/29/2015 Cancer of skin, squamous cell [C44.92] INVALID FOR* Osteoporosis [M81.0] INVALID FOR* Spinal stenosis of lumbar region with radiculop*INVALID FOR*01/29/2015 Bilateral low back pain without sciatica [M54.5]INVALID FOR*10/21/2015 Adjustment disorder with mixed anxiety and depr*INVALID FOR* Chronic bilateral low back pain without sciatic*INVALID FOR*10/22/2015 Decreased pulses in feet [R09.89] INVALID FOR* Dehydration [E86.0] INVALID FOR* More... Abnormal echocardiogram [R93.1] INVALID FOR* PVC's (premature ventricular contractions) [I49*INVALID FOR* SVT (supraventricular tachycardia) (HCC) [I47.1]INVALID FOR* Visit Notes: >> Veena Walshtory CEE [place] Dec 21, 2017 12:45 PM Status: Signed REVIEW OF SYSTEMS: General: The patient NOTES fatigue, denies weight loss, denies weight gain, denies feeling hot, and denies feelings of cold. Eyes: The patient denies glaucoma, NOTES eye injury/surgery, wears glasses or contacts. Ear/Nose/Throat: The patient NOTES allergies, NOTES hayfever, denies ear infections, and denies bloody noses. Cardiovascular: The patient denies chest pain, NOTES heart disease, NOTES high blood pressure,denies cardiac stent, denies prior heart attack, NOTES irregular heart beat, NOTES high cholesterol, denies poor circulation, denies heart failure, other cardiac issues, NOTES claudication, denies cold feet, denies peripheral arterial stent. Respiratory: The patient denies tuberculosis, NOTES pneumonia, NOTES frequent cough, denies pulmonary embolism, NOTES shortness of breath, and denies coughing up blood. Gastrointestinal: The patient NOTES difficulty swallowing, denies acid reflux, denies ulcers, denies vomiting, denies jaundice/hepatitis, denies gallbladder problems, denies black or tarry stools, denies hemorrhoids, denies bleeding from rectum, denies diverticulitis, denies constipation, denies diarrhea, denies loss of stool control, and denies hernias. Kidney/Bladder: The patient denies kidney stones, denies urine infections, and denies bloody urine. Skin: The patient NOTES a history of skin cancer, denies bleeding/changing moles, and denies a history of skin rash. Neurologic: The patient denies a history of epilepsy/convulsions, denies headaches, denies head/spinal injuries, and denies stroke/TIA. Psychiatric: The patient denies psychiatric medications, denies depression, and denies voices, denies substance abuse. Endocrine: The patient denies thyroid disorders, denies diabetes, and denies hormonal problems. Hematologic: The patient NOTES a history of bruising, denies bleeding, and denies anemia, denies blood clots. Infections: The patient NOTES a history of measles and mumps, denies rheumatic fever, and denies sexually transmitted diseases. Musculoskeletal: The patient NOTES back pain/injury, NOTES back problems, denies sciatica, NOTES knee/foot trouble,NOTES arthritis, or NOTES gout. When was patient's last Mammogram screening? N/A Last Colonoscopy: 2013 Veena Froylan [facility] Encounter Status:Closed by DEBI BOWIE MD on 12/21/17 DISCHARGE SUMMARY Observed: 12/17/2017 Status: F Source: [place] 3:[address] [facility] REPOSITORY [facility] Medical Records Department [address] [place] [address] Discharge Summary 12/17/17 1404 MR#: [id number] Acct: [id number] Name: KAMILLA DICKSON Rep #: [id number] : 1950 67 From: Jose Raul DACOSTA PCP: Neto Alberto MD Status: DIS IN Y Location: [facility] [id number] <Jose Raul Grace - Last Filed: 12/17/17 14:10> Discharge Date and Diagnosis Date of Admission: 12/16/17 Date of Discharge: 12/17/17 - Primary Discharge Diagnosis Aspiration of food, dysphagia COPD without acute exacerbation Hx CABG PAfib BPH DDD - Secondary Discharge Diagnosis Chronic Problems Benign prostatic hypertrophy (Chronic) Hypertension (Chronic) Chronic respiratory failure (Chronic) COPD (chronic obstructive pulmonary disease) (Chronic) Paroxysmal atrial fibrillation (Chronic) DDD (degenerative disc disease) (Chronic) CAD (coronary artery disease) (Chronic) Hx of CABG (Chronic) Myoclonic jerking (Chronic) Hospital Course and Treatment Imaging Results: RAD/Chest 1 View (Portable) IMPRESSION: There are findings consistent with COPD. There is no evidence of acute chest disease. CT/Chest WITH Contrast IMPRESSION: Moderate to severe COPD. No definite acute abnormalities. Operations: None Procedures: None Summary of Care Provided: The patient is a 67 year old M with a hx of COPD on 2 lpm o2 qhs, CAD prior CABG, PAFib, DDD who presented to the ER with severe cough. This began about 3 hours prior to presentation after he choked on a taco shell. In the ER he had a negative CXR and CT scan. He was given a dose of unasyn. He also reported this happening 3 times in the last 3 weeks. He did not require increased O2 supplementation. He was admitted for monitoring on the PCU and given aerosols. He was somewhat wheezy. He was able to cough out the piece of taco shell. The following morning he had no complaints and desired to go home. He met with the speech therapist who recommended a soft mechanical diet, thin liquids, and to eat slowly while sitting up at 90 degrees with alterniting bites and sips. He was given these instrucions for DC. I also advised him to use his albuterol inhaler scheduled [id number] for the first day home. He was discharged home in stable condition and advised to follow up with his PCP in 1-2 weeks. This patient was seen by Jose Raul Grace PA-C under the supervision of Dr. Tripp. [] Discharge Diet: Low fat/ Low Cholesterol, 2000 mg Sodium Diet, - - Mechanical soft textures, thin liquids, small bites small sips, slow rate, alternate bites of solids and sips of liquids, head of bed at 90 . Discharge Activity: Return to Normal Activity Home Medications: Medications to take at Discharge Albuterol Aerosols [Ventolin Aerosols] 2.5 mg INHALATION Q4H PRN PRN 07/04/16 Albuterol Inhaler [Ventolin Hfa] 2 puff INHALATION Q6H PRN PRN 07/04/16 Allopurinol 100 mg PO DAILY 07/04/16 Ascorbic Acid [Vitamin C] 1,000 mg PO DAILY 07/04/16 Aspirin [Aspirin, Baby] 81 mg PO DAILY@0800 07/04/16 Atorvastatin Calcium [Lipitor] 10 mg PO QHS 07/04/16 Budesonide [Pulmicort] 0.25 mg IH BID 07/04/16 Cholecalciferol (Vitamin D3) [Vitamin D3] 2,000 unit PO DAILY 07/04/16 Ciclopirox 6.6 ml TP QHS 07/04/16 Colchicine 0.6 mg PO BID 07/04/16 Hydroxychloroquine [Plaquenil] 400 mg PO DAILYCM 07/04/16 Ipratropium [Atrovent Aerosols] 0.25 mg INHALATION 4X/DAY 07/04/16 Metoprolol Tartrate 25 mg PO DAILY 07/04/16 Nitroglycerin 0.4 mg SL PRN PRN 07/04/16 Omeprazole [Prilosec] 20 mg PO DAILY 07/04/16 Pregabalin [Lyrica] 150 mg PO BID 07/04/16 Spironolactone [Aldactone] 12.5 mg PO DAILY 07/04/16 Tamsulosin HCl [Flomax] 0.4 mg PO DAILY 07/04/16 traMADol [Ultram] 50 mg PO Q4H PRN PRN 07/04/16 Alendronate Sodium [Fosamax] 70 mg PO QWEEK 07/15/17 Baclofen 10 mg PO BID PRN PRN 07/15/17 Nicotine [Nicotine Patch] 1 each TD DAILY 12/16/17 Primary Care Physician: Neto Alberto MD [Primary Care Provider] - Please follow up with your Primary Care Physician in: 1-2 weeks Disposition: Home Minutes spent on discharge:: 35 Patient Condition:: Stable Medical Necessity - Tobacco Use Smoking Status: Current every day smoker Meaningful Use Info Meaningful Use Diagnoses (Choose all that apply): None applicable <Marjorie Tripp E - Last Filed: 12/17/17 15:06> Discharge Date and Diagnosis - Secondary Discharge Diagnosis Chronic Problems Benign prostatic hypertrophy (Chronic) Hypertension (Chronic) Chronic respiratory failure (Chronic) COPD (chronic obstructive pulmonary disease) (Chronic) Paroxysmal atrial fibrillation (Chronic) DDD (degenerative disc disease) (Chronic) CAD (coronary artery disease) (Chronic) Hx of CABG (Chronic) Myoclonic jerking (Chronic) Hospital Course and Treatment Summary of Care Provided: Hospitalist note: Discharge summary above reviewed and I agree with above discharge and treatment plan. Patient was admitted because of persistent cough after he choked on taco shell. He was admitted with concern of aspiration and dysphagia. Extensive workup was done including chest x-ray and CT scan chest that was unremarkable without evidence of aspiration pneumonia or foreign body aspiration. His routine blood work was unremarkable. Patient was seen and evaluated by speech therapy and recommended soft mechanical diet, thin liquids and to eat slowly while sitting up. Instructions were relayed to the patient. Patient discharged home in a stable medical condition, discharged on his chronic home medication without any changes, started on albuterol as needed, recommended follow-up with PCP in 1-2 weeks. - Physical Exam General: Alert, Oriented x3, Cooperative, No apparent distress. HEENT: Atraumatic, PERRLA, EOMI. Neck: Supple, No JVD, Negative Carotid Bruits, Trachea Midline, Thyroid Normal. Lungs: Diminished breath sounds bilateral, no rhonchi, No wheeze, No rales. Cardiovascular: Regular rate, Regular Rhythm, Normal S1, Normal S2, PMI Normal. Abdomen: Bowel Sounds Present, Soft, Non Tender, Non-Distended, No Hepato-splenomegaly. Extremities: No clubbing, No cyanosis, No edema Skin: No rashes, No breakdown Neurological: Neuro grossly intact Vital Signs are stable. This note was generated with [employer] dictation software. It may contain incorrect words, spelling, and punctuation that were not noted in checking the note before signing. Minutes spent on discharge:: 25 Patient Condition:: Stable Meaningful Use Info Meaningful Use Diagnoses (Choose all that apply): None applicable Code Visit OBSV E AND M: 69080 Observation care discharge 12/17/17 1411 <Electronically signed by Jose Raul DACOSTA> Date Jose Raul DACOSTA 12/17/17 1506<Electronically signed by Marjorie Tripp MD> Cosigner Signature (if applicable): Date Marjorie Tripp MD CC: OLESYA Grace; Marjorie Tripp; Neto Alberto MD Signed DISCHARGE INSTRUCTION Observed: 12/17/2017 Status: F Source: [place] 10:[address] [facility] REPOSITORY [facility] Medical Records Department [address] [facility] [place] [address] Instructions for Home/Discharge Instructions 12/17/17 1040 MR#: [id number] Acct: [id number] Name: KAMILLA DICKSON Rep #: [id number] : 1950 67 From: Jose Raul DACOSTA PCP: Neto Alberto MD Status: ADM IN - Discharge Diagnoses Current Active Problems: Current Active and Chronic Problems Aspiration into airway (Acute) You will use the following diet at home:: Other - Dietitian recommends: mechanical soft textures, thin liquids, and in order to help prevent further choking: small bites, small sips, making sure to be at a 90 elevation whenever eating, and to alternate bites of solids and sips of liquids Your food should be the consistency of: Mechanical soft (ground) Your liquids should be the consistency of: Regular/Thin Discharge Activity: Return to Normal Activity Allergies/Adverse Reactions: Allergies No Known Allergies Allergy (Verified 12/16/17 18:11) Medications to take at Discharge Albuterol Aerosols [Ventolin Aerosols] 2.5 mg INHALATION Q4H PRN PRN 07/04/16 Albuterol Inhaler [Ventolin Hfa] 2 puff INHALATION Q6H PRN PRN 07/04/16 Allopurinol 100 mg PO DAILY 07/04/16 Ascorbic Acid [Vitamin C] 1,000 mg PO DAILY 07/04/16 Aspirin [Aspirin, Baby] 81 mg PO DAILY@0800 07/04/16 Atorvastatin Calcium [Lipitor] 10 mg PO QHS 07/04/16 Budesonide [Pulmicort] 0.25 mg IH BID 07/04/16 Cholecalciferol (Vitamin D3) [Vitamin D3] 2,000 unit PO DAILY 07/04/16 Ciclopirox 6.6 ml TP QHS 07/04/16 Colchicine 0.6 mg PO BID 07/04/16 Hydroxychloroquine [Plaquenil] 400 mg PO DAILYCM 07/04/16 Ipratropium [Atrovent Aerosols] 0.25 mg INHALATION 4X/DAY 07/04/16 Metoprolol Tartrate 25 mg PO DAILY 07/04/16 Nitroglycerin 0.4 mg SL PRN PRN 07/04/16 Omeprazole [Prilosec] 20 mg PO DAILY 07/04/16 Pregabalin [Lyrica] 150 mg PO BID 07/04/16 Spironolactone [Aldactone] 12.5 mg PO DAILY 07/04/16 Tamsulosin HCl [Flomax] 0.4 mg PO DAILY 07/04/16 traMADol [Ultram] 50 mg PO Q4H PRN PRN 07/04/16 Alendronate Sodium [Fosamax] 70 mg PO QWEEK 07/15/17 Baclofen 10 mg PO BID PRN PRN 07/15/17 Nicotine [Nicotine Patch] 1 each TD DAILY 12/16/17 Primary Care Physician: Neto Alberto MD [Primary Care Provider] - Please follow up with your Primary Care Physician in: 1-2 weeks Test Results: Test results from this visit will be discussed in further detail at your follow-up appointment, if applicable. Proposed Discharge Date: 12/17/17 12/17/17 1041 <Electronically signed by Jose Raul DACOSTA> Date Jose Raul DACOSTA CC: Neto Alberto MD BASIC METABOLIC Collected: 12/17/2017 Status: F Source: [place] PROFILE (BMP) 5:[address] [facility] REPOSITORY TYPE CODE TESTS RESULT OUT OF RANGE REFERENCE UNITS LAB L501.0100 74-106 mg/dL Low GLU 47 Result Comment: Glucose result less than 50 mg/dL suggests HYPOGLYCEMIA. Please note revised GLUCOSE reference range effective 2017. LAB L501.1000 7-18 mg/dL Normal BUN 18 LAB L501.1100 0.70-1.30 mg/dL Normal CREAT,SERUM 0.99 Result Comment: The validity of the calculated GFR AND GFRAA in patients over 70 years has not been determined. Clinical correlation is essential. LAB L501.1110 >60 mL/min Normal EST GFR 80 Result Comment: Non- GFR Calc LAB L501.1115 >60 mL/min Normal EST GFR - AA 97 Result Comment: GFR Calc LAB L501.1255 ml/min Normal Estimated CRCL 54.39 LAB L501.1300 10-20 RATIO Normal BUN/CRE 18.3 LAB L501.2200 8.5-10 mg/dL Normal .1 CA 9.1 LAB L501.5300 136-14 mmol/L Normal 5 NA 142 LAB L501.5600 3.5-5. mmol/L Normal 1 K 4.6 LAB L501.5900 98-107 mmol/L Normal CL 104 LAB L501.6100 21.0-3 mmol/L Normal 2.0 CO2 23.0 LAB L501.6200 5-15 Normal GAP 15 Performed By: #### L500.2500 #### [facility] [address] [facility] [place], [address] EMERGENCY DEPARTMENT Observed: 12/16/2017 Status: F Source: RAMSAY SUMMARY 9:[address] [facility] REPOSITORY [facility] Medical Records Department [address] [facility] [place] [address] Emergency Department Summary 12/16/17 1839 MR#: [id number] Acct: [id number] Name: KAMILLA DICKSON Rep #: [id number] : 1950 67 From: Geraldine Nation MD PCP: Neto Alberto MD Status: ADM IN - ER Visit Summary Date of Service: 12/16/17 Chief Complaint: Choked on Taco History of Present Illness: The patient is a 67 M presenting after choking on a taco while eating upstairs visiting his in the hospital. He has had coughing and sensation of foreign body in throat since that time. He is able to swallow liquids. His family states that he has frequent trouble with choking when eating. He denies chest pain or shortness of breath. Physical Examination: Vitals are stable. Patient is afebrile. Alert no acute distress. Pulse ox initially 86% on room air. HEENT exam is unremarkable. Neck is supple. Lungs are mild expiratory wheezing bilaterally. Heart is regular rate and rhythm. Abdomen is soft nontender nondistended. Extremities are unremarkable. Skin is warm and dry. Remainder of exam is unremarkable. Emergency Department Course and Treatment: He was given Glucagon IM. He continues to have coughing. He is able to swallow liquids without difficulty. He states he feels a scratch in the back of his throat but otherwise is able to swallow. CBC, chemistries unremarkable. He was given Unasyn IV for aspiration. I feel he will likely need a swallow evaluation and treatment for aspiration. Discussed with the hospitalist. Discussed with Dr Mae, recommends CT chest. CT chest shows moderate to severe COPD. No definite acute abnormalities. Disposition: Admission Impression: Aspiration pneumonitis This note was generated with [employer] dictation software. It may contain incorrect words, spelling, and punctuation that were not noted in review of the chart prior to signing ED Disposition - Plan for ED Patient: Chief Complaint: Foreign Body What to do if you have Problems For any increased pain, shortness of breath, bleeding, nausea or vomiting, chest pain, or any unexpected problems, contact your Primary Care Provider. Call [facility] ([phone]) or report to the closest Emergency Room. Call 911 if necessary. 12/16/172123 <Electronically signed by Geraldine Nation MD> Date Geraldine Nation MD Cosigner Signature (If Indicated): Date CC: Neto Alberto MD CHEST WITH CONTRAST Observed: 12/16/2017 Status: F Source: RAMSAY 8:[address] [facility] REPOSITORY [facility] Imaging Services [address] [place] [address] Chest WITH Contrast MR#: [id number] Acct: [id number] Name: KAMILLA DICKSON Rep #: [id number] : 1950 M 67 From: Tod Barnhart MD PCP: Neto Alberto MD Status: REG ER Study: Chest WITH Contrast Date of Exam: 12/16/17 Exam# [id number] Ordering Dr: Geraldine Nation MD STUDY: CT CHEST WITH CONTRAST REASON FOR EXAM: Male, 67 years old. Choked on food. Cough. RADIATION DOSAGE (If Supplied By Facility): CTDIvol = ( 13.08 ) mGy, DLP = ( 579.65 ) mGycm TECHNIQUE: Transaxial imaging was performed following intravenous administration of 100 ml of Isovue 300 contrast material. Individualized dose optimization techniques were used for this CT. COMPARISON: None. FINDINGS: There are emphysematous changes of the lungs with emphysematous blebs. There is hyperexpansion of the lungs. No infiltrates. No effusions. There is no demonstrated pleural abnormality. Sternal cerclage wires and vascular clips are present from a prior sternotomy and coronary artery bypass graft procedure (CABG). There is narrowing of the upper trachea which can be seen with COPD. Normal mediastinum. Normal hilar regions. Normal enhanced pulmonary arteries. There is atherosclerotic calcification of the aortic arch with tortuosity and elongation of the aortic arch and descending thoracic aorta. No gross abnormality of the esophagus. There are multi-level degenerative changes of the thoracic spine. There is no demonstrated abnormality of the visualized upper abdomen. CT/Chest WITH Contrast IMPRESSION: Moderate to severe COPD. No definite acute abnormalities. Electronically Signed: Tod Barnhart MD at 21:08 EDT , Service support , CC: Geraldine Nation MD; Neto Alberto MD Suspension Cord Tier: Signed CHEST 1 VIEW Observed: 12/16/2017 Status: F Source: JONATAN (PORTABLE) 6:[address] [facility] REPOSITORY [facility] Imaging Services [address] [place] [address] Chest 1 View (Portable) MR#: [id number] Acct: [id number] Name: KAMILLA DICKSON Rep #: [id number] : 1950 M 67 From: Tod Barnhart MD PCP: Neto Alberto MD Status: REG ER Study: Chest 1 View (Portable) Date of Exam: 12/16/17 Exam# [id number] Ordering Dr: Geraldine Nation MD STUDY: X-RAY CHEST REASON FOR EXAM: Male, 67 years old. Choking on food. TECHNIQUE: Single AP portable view of the chest. COMPARISON: 07/15/2017. FINDINGS: The lungs are hyperexpanded. There are coarsened interstitial markings suggestive of mild chronic fibrosis. No gross focal infiltrates. No gross effusions. Sternal cerclage wires and vascular clips are present from a prior sternotomy and coronary artery bypass graft procedure (CABG). Normal mediastinum and katelyn. Normal visualized pulmonary arteries. Normal visualized aortic arch and descending thoracic aorta. Normal visualized thoracic spine. Normal visualized ribs, clavicles, and shoulders. There is no demonstrated abnormality of the visualized soft tissue structures of the upper abdomen. RAD/Chest 1 View (Portable) IMPRESSION: There are findings consistent with COPD. There is no evidence of acute chest disease. Electronically Signed: Tod Barnhart MD at 19:31 EDT , Service support , CC: Geraldine Nation MD; Neto Alberto MD Suspension Cord Tier: Signed BASIC METABOLIC Collected: 12/16/2017 Status: F Source: JONATAN PROFILE (BMP) 6:[address] [facility] REPOSITORY TYPE CODE TESTS RESULT OUT OF RANGE REFERENCE UNITS LAB L501.0100 74-106 mg/dL Normal GLU 93 Result Comment: Please note revised GLUCOSE reference range effective 2017. LAB L501.1000 7-18 mg/dL Normal BUN 13 LAB L501.1100 0.70-1.30 mg/dL Normal CREAT,SERUM 1.22 Result Comment: The validity of the calculated GFR AND GFRAA in patients over 70 years has not been determined. Clinical correlation is essential. LAB L501.1110 >60 mL/min Normal EST GFR 63 Result Comment: Non- GFR Calc LAB L501.1115 >60 mL/min Normal EST GFR - AA 76 Result Comment: GFR Calc LAB L501.1255 ml/min Normal Estimated CRCL 44.13 LAB L501.1300 10-20 RATIO Normal BUN/CRE 10.7 LAB L501.2200 8.5-10 mg/dL Normal .1 CA 9.7 LAB L501.5300 136-14 mmol/L Normal 5 NA 140 LAB L501.5600 3.5-5. mmol/L Normal 1 K 4.5 LAB L501.5900 98-107 mmol/L Normal CL 104 LAB L501.6100 21.0-3 mmol/L Normal 2.0 CO2 27.0 LAB L501.6200 5-15 Normal GAP 9 Performed By: #### L500.2500 #### [facility] [address] [place], [address] CBC W/DIFF, AUTOMATED Collected: 12/16/2017 Status: F Source: JONATAN 6:[address] [facility] REPOSITORY TYPE CODE TESTS RESULT OUT OF RANGE REFERENCE UNITS LAB L100.1000 4.4-11.0 K/mm3 Normal WBC 9.4 LAB L100.1200 4.6-6.2 M/mm3 Normal RBC 4.93 LAB L100.1300 13.0-16.5 g/dl Normal HGB 15.1 LAB L100.1400 40-54 % Normal HCT 46.3 LAB L100.1500 80-94 fL Normal MCV 93.9 LAB L100.1600 27.0-32.0 pg Normal MCH 30.6 LAB L100.1700 32-36 g/gl Normal MCHC 32.6 LAB L100.1810 11.6-14.6 % Normal RDW CV 13.7 LAB L100.1820 35.1-43.9 fl High RDW SD 45.8 LAB L100.1900 150-450 K/mm3 Normal PLT 287 LAB L100.2000 6.2-12.0 fl Normal MPV 10.7 LAB L100.2100 47-70 % Normal NEUT% 47.6 LAB L100.2200 19-41 % Normal LY% 30.6 LAB L100.2300 0-10 % High MONO% 12.0 LAB L100.2400 0-5 % High EO% 8.4 LAB L100.2500 0-1 % High BASO% 1.2 LAB L100.2550 0.0-0.9 % Normal IM GRAN % 0.200 Result Comment: IG% - Immature Granulocytes (promyelocytes, myelocytes and metamyelocytes) > 1% indicates that a LEFT SHIFT is Present. LAB L100.2620 2.0-7.7 X10 3/uL Normal Absolute Neut 4.5 LAB L100.2720 0.83-4.51 X10 3/ul Normal Absolute Lymph 2.88 Performed By: #### L100.0100 #### [facility] [address] [place] [address]. [place], [address] PROGRESS Observed: 12/11/2017 Status: COMPLETED Source: [place] 11:07 AM [facility] REPOSITORY HNO ID: [id number] Author: Julita Alberto Service: (none) Author Type: Physician Type: Progress Notes Filed: 12/14/2017 12:25 PM Note Text: . Choking on food. Feels like it sticks in his throat , Speech is okay. He has had healing of food sticking in his throat as well. Balance problem? veers when walking , often to L vs R , he has not fallen. ACTIVE PROBLEM LIST COPD (chronic obstructive pulmonary disease) Essential Hypertension Hyperlipidemia Degenerative Disc Disease Lumbar Disc Disease Spinal Stenosis Coronary Artery Disease Neoplasm of uncertain behavior of skin: R/O Skin Cancer (BCC or SCC) of Right Perioral Cheek Face Actinic Keratoses: Premalignant AK's Other Seborrheic Keratosis Actinic Skin Damage Melanocytic Nevus of Trunk Xerosis Cutis Skin Tag Open Wound(s) (Multiple) of Unspecified Site(s), Without Mention of Complication Summary Cad (Coronary Artery Disease), [place] Coronary Artery Bronchitis Pain Leukocytosis Hyponatremia Iron Deficiency Anemia S/P Cabg X 2 Gerd (Gastroesophageal Reflux Disease) Osteopenia Lumbar Stenosis With Neurogenic Claudication Facet Arthropathy, Lumbar (Hcc) Cancer of Skin, Squamous Cell Osteoporosis Adjustment Disorder With Mixed Anxiety and Depressed Mood Decreased Pulses in Feet Dehydration Abnormal Echocardiogram Pvc's (Premature Ventricular Contractions) Svt (Supraventricular Tachycardia) ([facility]) Dr Barber. [facility] Skin cancer Facet arthropathy. Ongoing back pain , the gait symptoms he attributes to the back PAST MEDICAL HISTORY Diagnosis Date - Arthritis back and hips - Atrial fibrillation (HCC) - COPD (chronic obstructive pulmonary disease) ([facility]) - Degenerative disc disease - Dehydration 2015 Associated with MATHIEU. - Depression - Herniated disc - High blood pressure - High cholesterol - Nocturnal hypoxemia - OA (osteoarthritis) - Seasonal allergies - Spinal stenosis PAST SURGICAL HISTORY Procedure Laterality Date - CARPAL TUNNEL bilateral. done by [facility] - CATARACT SURGERY, [facility] - COLONOSCOP W/ OR W/O [facility] SPEC 11/21/13 Colonoscopy - COLONOSCOPY AND POLYPECTOMY 01/04/08 hyperplastic polyps, diverticulosis ALLERGIES No Known Allergies MEDICATIONS spironolactone (ALDACTONE) 25 mg tablet Take 0.5 tablets by mouth once daily. albuterol (PROVENTIL) 2.5 mg /3 mL (0.083 %) nebulizer solution Use 3 mL via nebulizer every 4 hours as needed for Wheezing/Shortness of Breath. Use over 5-15minutes. hydroxychloroquine (PLAQUENIL) 200 mg tablet TAKE 2 TABLETS BY MOUTH ONCE DAILY metoprolol succinate ER (TOPROL XL) 25 mg 24 hr tablet Take 1 tablet by mouth once daily. alendronate (FOSAMAX) 70 mg tablet Take 1 tablet by mouth once each week. tamsulosin ER (FLOMAX) 0.4 mg cp24 Take 1 capsule by mouth once daily. COLCRYS 0.6 mg tablet Take 0.6 mg by mouth twice daily. traMADol (ULTRAM) 50 mg tablet Take 50 mg by mouth four times daily as needed (can take 1 at bedtime as needed). nicotine (NICODERM CQ) 14 mg/24 hr Apply 1 Patch as directed every 24 hours. ipratropium (ATROVENT) 0.02 % nebulizer solution Use 2.5 mL via nebulizer four times daily. budesonide (PULMICORT) 0.5 mg/2 mL nebulizer solution Use 2 mL via nebulizer twice daily. albuterol HFA (PROAIR HFA) 90 mcg/actuation inhaler 2 Puffs every 6 hours as needed. Take as directed omeprazole (PRILOSEC) 20 mg capsule Take 1 capsule by mouth daily before breakfast. 1/2 hr before meal. atorvastatin (LIPITOR) 10 mg tablet Take 1 tablet by mouth daily at bedtime. For cholesterol. pregabalin (LYRICA) 150 mg capsule Take 1 capsule by mouth twice daily. baclofen (LIORESAL) 10 mg tablet Take 1 tablet by mouth twice daily as needed. allopurinol (ZYLOPRIM) 100 mg tablet Take 1 tablet by mouth once daily. colchicine (MITIGARE) 0.6 mg capsule Take 1 capsule by mouth twice daily. nitroglycerin sublingual (NITROQUICK) 0.4 mg SL tablet Dissolve 1 tablet under the tongue every 5 minutes as needed for Chest Pain (If chest pain no better after 3 tablets, call 911). COMPOUNDED PRESCRIPTION Aerosol nebulizer. Dx COPD. Ciclopirox (LOPROX) 8 % solution Apply 1 application to affected area daily at bedtime. ascorbic acid (VITAMIN C) 500 mg tablet Take 2 tablets by mouth once daily. COMPOUNDED PRESCRIPTION Please perform nocturnal oximetry on room air.Diagnosis: HypoxiaPlease fax results to [phone] Cholecalciferol, Vitamin D3, 2,000 unit cap Take 1 tablet by mouth once daily. aspirin 81 mg chewable tablet Take 2 tablets by mouth once daily. therapeutic multivitamin (THERA VITAMIN) tablet Take 1 tablet by mouth daily with breakfast. FAMILY HISTORY Problem Relation Age of Onset - Cancer Father Some GI cancer. - None Mother of old age at 99 years old. - Ischemic Heart Disease Paternal Grandmother Heart attack at old age. Social History Marital status: Spouse name: Years of education: Number of children: 1 Occupational History Occupation Employer Comment Retired [employer] Social History Main Topics Smoking status: Current Every Day Smoker Packs/day: 0.50 Years: 45.00 Types: Cigarettes, Cigars Start date: 01/13/2015 Smokeless tobacco: Never Used Comment: quit in 2013 for 1 year Alcohol use: Yes Comment: Very seldom. 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 [place]. Lives with his sister Samira Exercise: Negligible. Diet: lives on sandwiches. 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 PHYSICAL EXAMINATION BP 117/53 (BP Site: Left Arm, BP Position: Sitting) Pulse 93 Resp 12 Wt 66.2 kg (145 lb 14.4 oz) SpO2 92% BMI 26.69 kg/m? General: Alert and oriented, no distress, pleasant and cooperative. Speech is coherent, not slurred. No facial asymmetry. Heart: Regular, normal S1 and S2, no murmurs, rubs, or gallops Lungs: Clear to auscultation bilaterally Abdomen: Benign Extremities: Feet/ankles without edema, posterior tibial pulses full and symmetrical. He walks with a mildly stooped posture. No overt veering on ambulation normal back wedger strength Assessment/Plan: (R06.89) Choking episode occurring both during daytime and at night (primary encounter diagnosis) Comment: His current complaint. Consider esophageal stricture versus swallowing mechanism abnormality. Plan: CONSULT SPEECH THERAPY, SWALLOW EVALUATION Service speech assessment. (Z72.0) Continuous tobacco abuse Comment: Plan: nicotine (NICODERM CQ) 14 mg/24 hr Agreeable to nicotine patch (I25.10) Coronary artery disease involving [place] coronary artery of [place] heart without angina pectoris Comment: Plan: Status quo (R26.9) Abnormality of gait Comment: Related to back arthritis. Plan: (M46.96) Facet arthropathy, lumbar (HCC) Comment: Plan: No change in current regimen. (C44.91) Basal cell carcinoma, unspecified site Comment: He has had an excision continues follow-up with dermatology. Plan: as above. Signed Prescriptions Disp Refills nicotine (NICODERM CQ) 14 mg/24 hr 30 Patch 2 Sig: Apply 1 Patch as directed every 24 hours. WENDIE: No RTO: 3 mos if stable/ or as needed. Julita Alberto MD CNOV Observed: 12/11/2017 Status: COMPLETED Source: [place] 11:00 AM [facility] REPOSITORY Office Visit (WADS) KAMILLA DICKSON ([id number]) 1950 M Date Time Provider Department 12/11/17 11:00 AM JULITA ALBERTO During your visit today, we recorded the following information about you: Pulse Respiration Blood pressure Weight 93/minute 12/minute 117/53 66.2 kg Julita Alberto MD 12/14/2017 12:25 PM Signed . Choking on food. Feels like it sticks in his throat , Speech is okay. He has had healing of food sticking in his throat as well. Balance problem? veers when walking , often to L vs R , he has not fallen. ACTIVE PROBLEM LIST COPD (chronic obstructive pulmonary disease) Essential Hypertension Hyperlipidemia Degenerative Disc Disease Lumbar Disc Disease Spinal Stenosis Coronary Artery Disease Neoplasm of uncertain behavior of skin: R/O Skin Cancer (BCC or SCC) of Right Perioral Cheek Face Actinic Keratoses: Premalignant AK's Other Seborrheic Keratosis Actinic Skin Damage Melanocytic Nevus of Trunk Xerosis Cutis Skin Tag Open Wound(s) (Multiple) of Unspecified Site(s), Without Mention of Complication Summary Cad (Coronary Artery Disease), [place] Coronary Artery Bronchitis Pain Leukocytosis Hyponatremia Iron Deficiency Anemia S/P Cabg X 2 Gerd (Gastroesophageal Reflux Disease) Osteopenia Lumbar Stenosis With Neurogenic Claudication Facet Arthropathy, Lumbar (Hcc) Cancer of Skin, Squamous Cell Osteoporosis Adjustment Disorder With Mixed Anxiety and Depressed Mood Decreased Pulses in Feet Dehydration Abnormal Echocardiogram Pvc's (Premature Ventricular Contractions) Svt (Supraventricular Tachycardia) ([facility]) Dr Barber. [facility] [place] Skin cancer Facet arthropathy. Ongoing back pain , the gait symptoms he attributes to the back PAST MEDICAL HISTORY Diagnosis Date - Arthritis back and hips - Atrial fibrillation (HCC) - COPD (chronic obstructive pulmonary disease) (HCC) - Degenerative disc disease - Dehydration 2016 Associated with MATHIEU. - Depression - Herniated disc - High blood pressure - High cholesterol - Nocturnal hypoxemia - OA (osteoarthritis) - Seasonal allergies - Spinal stenosis PAST SURGICAL HISTORY Procedure Laterality Date - CARPAL TUNNEL bilateral. done by [facility] - CATARACT SURGERY, [facility] - COLONOSCOP W/ OR W/O [facility] SPEC 11/21/13 Colonoscopy - COLONOSCOPY AND POLYPECTOMY 01/04/08 hyperplastic polyps, diverticulosis ALLERGIES No Known Allergies MEDICATIONS spironolactone (ALDACTONE) 25 mg tablet Take 0.5 tablets by mouth once daily. albuterol (PROVENTIL) 2.5 mg /3 mL (0.083 %) nebulizer solution Use 3 mL via nebulizer every 4 hours as needed for Wheezing/Shortness of Breath. Use over 5-15minutes. hydroxychloroquine (PLAQUENIL) 200 mg tablet TAKE 2 TABLETS BY MOUTH ONCE DAILY metoprolol succinate ER (TOPROL XL) 25 mg 24 hr tablet Take 1 tablet by mouth once daily. alendronate (FOSAMAX) 70 mg tablet Take 1 tablet by mouth once each week. tamsulosin ER (FLOMAX) 0.4 mg cp24 Take 1 capsule by mouth once daily. COLCRYS 0.6 mg tablet Take 0.6 mg by mouth twice daily. traMADol (ULTRAM) 50 mg tablet Take 50 mg by mouth four times daily as needed (can take 1 at bedtime as needed). nicotine (NICODERM CQ) 14 mg/24 hr Apply 1 Patch as directed every 24 hours. ipratropium (ATROVENT) 0.02 % nebulizer solution Use 2.5 mL via nebulizer four times daily. budesonide (PULMICORT) 0.5 mg/2 mL nebulizer solution Use 2 mL via nebulizer twice daily. albuterol HFA (PROAIR HFA) 90 mcg/actuation inhaler 2 Puffs every 6 hours as needed. Take as directed omeprazole (PRILOSEC) 20 mg capsule Take 1 capsule by mouth daily before breakfast. 1/2 hr before meal. atorvastatin (LIPITOR) 10 mg tablet Take 1 tablet by mouth daily at bedtime. For cholesterol. pregabalin (LYRICA) 150 mg capsule Take 1 capsule by mouth twice daily. baclofen (LIORESAL) 10 mg tablet Take 1 tablet by mouth twice daily as needed. allopurinol (ZYLOPRIM) 100 mg tablet Take 1 tablet by mouth once daily. colchicine (MITIGARE) 0.6 mg capsule Take 1 capsule by mouth twice daily. nitroglycerin sublingual (NITROQUICK) 0.4 mg SL tablet Dissolve 1 tablet under the tongue every 5 minutes as needed for Chest Pain (If chest pain no better after 3 tablets, call 911). COMPOUNDED PRESCRIPTION Aerosol nebulizer. Dx COPD. Ciclopirox (LOPROX) 8 % solution Apply 1 application to affected area daily at bedtime. ascorbic acid (VITAMIN C) 500 mg tablet Take 2 tablets by mouth once daily. COMPOUNDED PRESCRIPTION Please perform nocturnal oximetry on room air.Diagnosis: HypoxiaPlease fax results to [phone] Cholecalciferol, Vitamin D3, 2,000 unit cap Take 1 tablet by mouth once daily. aspirin 81 mg chewable tablet Take 2 tablets by mouth once daily. therapeutic multivitamin (THERA VITAMIN) tablet Take 1 tablet by mouth daily with breakfast. FAMILY HISTORY Problem Relation Age of Onset - Cancer Father Some GI cancer. - None Mother of old age at 99 years old. - Ischemic Heart Disease Paternal Grandmother Heart attack at old age. Social History Marital status: Spouse name: Years of education: Number of children: 1 Occupational History Occupation Employer Comment Retired [employer] Social History Main Topics Smoking status: Current Every Day Smoker Packs/day: 0.50 Years: 45.00 Types: Cigarettes, Cigars Start date: 01/13/2015 Smokeless tobacco: Never Used Comment: quit in 2013 for 1 year Alcohol use: Yes Comment: Very seldom. 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 [employer]. Lives with his sister Samira Exercise: Negligible. Diet: lives on sandwiches. 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 PHYSICAL EXAMINATION BP 117/53 (BP Site: Left Arm, BP Position: Sitting) Pulse 93 Resp 12 Wt 66.2 kg (145 lb 14.4 oz) SpO2 92% BMI 26.69 kg/m? General: Alert and oriented, no distress, pleasant and cooperative. Speech is coherent, not slurred. No facial asymmetry. Heart: Regular, normal S1 and S2, no murmurs, rubs, or gallops Lungs: Clear to auscultation bilaterally Abdomen: Benign Extremities: Feet/ankles without edema, posterior tibial pulses full and symmetrical. He walks with a mildly stooped posture. No overt veering on ambulation normal back wedger strength Assessment/Plan: (R06.89) Choking episode occurring both during daytime and at night (primary encounter diagnosis) Comment: His current complaint. Consider esophageal stricture versus swallowing mechanism abnormality. Plan: CONSULT SPEECH THERAPY, SWALLOW EVALUATION Service speech assessment. (Z72.0) Continuous tobacco abuse Comment: Plan: nicotine (NICODERM CQ) 14 mg/24 hr Agreeable to nicotine patch (I25.10) Coronary artery disease involving [place] coronary artery of [place] heart without angina pectoris Comment: Plan: Status quo (R26.9) Abnormality of gait Comment: Related to back arthritis. Plan: (M46.96) Facet arthropathy, lumbar (HCC) Comment: Plan: No change in current regimen. (C44.91) Basal cell carcinoma, unspecified site Comment: He has had an excision continues follow-up with dermatology. Plan: as above. Signed Prescriptions Disp Refills nicotine (NICODERM CQ) 14 mg/24 hr 30 Patch 2 Sig: Apply 1 Patch as directed every 24 hours. WENDIE: No RTO: 3 mos if stable/ or as needed. Julita Alberto MD Referring Provider: SELF [200] Allergies As of Date: 12/11/2017 Noted Allergy Reaction NO KNOWN ALLERGIES 01/13/2017 14 - Other: See Comments Date Reviewed: 12/11/2017 Reviewed by: Nadya Bailey Ma - Fully Assessed Reason for Visit: Balance [140] Difficulty Swallowing [207] Primary Visit Diagnosis:Choking episode occurring both during daytime and at night [R06.89] Other Visit Diagnoses:Continuous tobacco abuse [Z72.0] Coronary artery disease involving [place] coronary artery of [place] heart without angina pectoris [I25.10] Abnormality of gait [R26.9] Facet arthropathy, lumbar (HCC) [M46.96] Basal cell carcinoma, unspecified site [C44.91] Order(s):nicotine (NICODERM CQ) 14 mg/24 hrApply 1 Patch as directed every 24 hours.Disp: 30 PatchRfl: 2 CONSULT SPEECH THERAPY [[id number]] Order #: [id number]: 1 SWALLOW EVALUATION [[id number]] Order #: [id number] Prescriptions as of 12/11/2017 Sig: NICOTINE 14 MG/24 HR DAILY TR* Apply 1 Patch as directed nicol* SPIRONOLACTONE 25 MG TABLET Take 0.5 tablets by mouth onc* ALBUTEROL SULFATE 2.5 MG/3 ML* Use 3 mL via nebulizer every * HYDROXYCHLOROQUINE 200 MG TAB* TAKE 2 TABLETS BY MOUTH ONCE * METOPROLOL SUCCINATE ER 25 MG* Take 1 tablet by mouth once d* ALENDRONATE 70 MG TABLET Take 1 tablet by mouth once e* TAMSULOSIN 0.4 MG CAPSULE Take 1 capsule by mouth once * COLCRYS 0.6 MG TABLET Take 0.6 mg by mouth twice da* TRAMADOL 50 MG TABLET Take 50 mg by mouth four time* IPRATROPIUM BROMIDE 0.02 % SO* Use 2.5 mL via nebulizer four* BUDESONIDE 0.5 MG/2 ML SUSPEN* Use 2 mL via nebulizer twice * ALBUTEROL SULFATE HFA 90 MCG/* 2 Puffs every 6 hours as need* OMEPRAZOLE 20 MG CAPSULE,YOKO* Take 1 capsule by mouth daily* ATORVASTATIN 10 MG TABLET Take 1 tablet by mouth daily * PREGABALIN 150 MG CAPSULE Take 1 capsule by mouth twice* BACLOFEN 10 MG TABLET Take 1 tablet by mouth twice * ALLOPURINOL 100 MG TABLET Take 1 tablet by mouth once d* COLCHICINE 0.6 MG CAPSULE Take 1 capsule by mouth twice* Patient taking differently: Take 0.6 mg by mouth as neede* NITROGLYCERIN 0.4 MG SUBLINGU* Dissolve 1 tablet under the t* COMPOUNDED PRESCRIPTION Aerosol nebulizer. Dx COPD. CICLOPIROX 8 % TOPICAL SOLUTI* Apply 1 application to affect* ASCORBIC ACID (VITAMIN C) 500* Take 2 tablets by mouth once * COMPOUNDED PRESCRIPTION Please perform nocturnal oxim* CHOLECALCIFEROL (VITAMIN D3) * Take 1 tablet by mouth once d* ASPIRIN 81 MG CHEWABLE TABLET Take 2 tablets by mouth once * THERAPEUTIC MULTIVITAMIN TABL* Take 1 tablet by mouth daily * Problem List As Of Date 12/11/2017 Noted Resolved COPD (chronic obstructive pulmonary disease) [J*INVALID FOR* Priority: B More... Essential hypertension [I10] INVALID FOR* Priority: C More... Chronic atrial fibrillation (HCC) [I48.2] INVALID FOR*06/15/2016 Priority: A More... Hyperlipidemia [E78.5] INVALID FOR* Priority: E More... Degenerative disc disease [KRE1064] INVALID FOR* Lumbar disc disease [M51.9] INVALID FOR* Spinal stenosis [M48.00] INVALID FOR* Priority: K More... 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 CAD (coronary artery disease), [place] coronary *INVALID FOR* Priority: A More... Bronchitis [J40] INVALID FOR* Priority: B More... Preop testing [Z01.818] INVALID FOR*01/17/2014 More... More... Mechanically assisted ventilation (HCC) [Z99.11]INVALID FOR*01/18/2014 Priority: B More... Hypotension [I95.9] INVALID FOR*01/24/2014 Priority: C More... Pain [R52] INVALID FOR* Priority: D More... Leukocytosis [D72.829] INVALID FOR* Priority: I More... Hyponatremia [E87.1] INVALID FOR* Priority: F More... 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.1] INVALID FOR* GERD (gastroesophageal reflux disease) [K21.9] INVALID FOR* Osteopenia [M85.80] INVALID FOR* Lumbar stenosis with neurogenic claudication [M*INVALID FOR* Facet arthropathy, lumbar [M46.96] INVALID FOR* Low back pain [M54.5] INVALID FOR*01/29/2015 Cancer of skin, squamous cell [C44.92] INVALID FOR* Osteoporosis [M81.0] INVALID FOR* Spinal stenosis of lumbar region with radiculop*INVALID FOR*01/29/2015 Bilateral low back pain without sciatica [M54.5]INVALID FOR*10/21/2015 Adjustment disorder with mixed anxiety and depr*INVALID FOR* Chronic bilateral low back pain without sciatic*INVALID FOR*10/22/2015 Decreased pulses in feet [R09.89] INVALID FOR* Dehydration [E86.0] INVALID FOR* More... Abnormal echocardiogram [R93.1] INVALID FOR* PVC's (premature ventricular contractions) [I49*INVALID FOR* SVT (supraventricular tachycardia) (HCC) [I47.1]INVALID FOR* Prescriptions ordered this encounter Disp Refills Start End NICOTINE 14 MG/24 HR DAILY TRANSDERM* 30 P* 2 12/11/2017 Route: TRANSDERM. Sig: Apply 1 Patch as directed every 24 hours. Medications Discontinued During This Encounter nicotine (NICODERM CQ) 14 mg/24 hr 30 P* 2 05/31/2017 12/11/2017 Route: TRANSDERMAL Sig: Apply 1 Patch as directed every 24 hours. Patient not taking: Reported on 09/28/2017 Disc: Reason for discontinue is not on file. Encounter Status:Closed by NETO ALBERTO MD on 12/14/17 PROGRESS Observed: 10/16/2017 Status: COMPLETED Source: [place] 10:04 AM [facility] REPOSITORY HNO ID: [id number] Author: Geetha Dailey Service: (none) Author Type: Physician Type: Progress Notes Filed: 10/16/2017 10:04 AM Note Text: This office note has been dictated. Geetha Dailey DO CNOV Observed: 10/16/2017 Status: COMPLETED Source: [place] 9:15 AM [facility] REPOSITORY Office Visit (VASSWS) KAMILLA DICKSON ([id number]) 1950 M Date Time Provider Department 10/16/17 9:15 AM GEETHA DAILEY During your visit today, we recorded the following information about you: Pulse Blood pressure 65/minute 133/76 Geetha Dailey DO 10/16/2017 10:04 AM Signed This office note has been dictated. Geetha Dailey DO Referring Provider: GEETHA DAILEY [[id number]] Allergies As of Date: 10/16/2017 Noted Allergy Reaction NO KNOWN ALLERGIES 01/13/2017 14 - Other: See Comments Date Reviewed: 10/16/2017 Reviewed by: Rod Sparks RN - Fully Assessed Reason for Visit: Established Patient [175] Primary Visit Diagnosis:Peripheral arterial disease (HCC) [I73.9] Other Visit Diagnosis:Bilateral carotid artery disease (HCC) [I77.9] Order(s):US CAROTID ARTERIES [facility] [[id number]] Order #: [id number] FUTURE PVR LEG [facility] [[id number]] Order #: [id number] FUTURE Prescriptions as of 10/16/2017 Sig: SPIRONOLACTONE 25 MG TABLET Take 0.5 tablets by mouth onc* ALBUTEROL SULFATE 2.5 MG/3 ML* Use 3 mL via nebulizer every * HYDROXYCHLOROQUINE 200 MG TAB* TAKE 2 TABLETS BY MOUTH ONCE * METOPROLOL SUCCINATE ER 25 MG* Take 1 tablet by mouth once d* ALENDRONATE 70 MG TABLET Take 1 tablet by mouth once e* TAMSULOSIN 0.4 MG CAPSULE Take 1 capsule by mouth once * COLCRYS 0.6 MG TABLET Take 0.6 mg by mouth twice da* TRAMADOL 50 MG TABLET Take 50 mg by mouth four time* NICOTINE 14 MG/24 HR DAILY TR* Apply 1 Patch as directed nicol* Patient not taking: Reported on 09/28/2017 IPRATROPIUM BROMIDE 0.02 % SO* Use 2.5 mL via nebulizer four* BUDESONIDE 0.5 MG/2 ML SUSPEN* Use 2 mL via nebulizer twice * ALBUTEROL SULFATE HFA 90 MCG/* 2 Puffs every 6 hours as need* OMEPRAZOLE 20 MG CAPSULE,YOKO* Take 1 capsule by mouth daily* ATORVASTATIN 10 MG TABLET Take 1 tablet by mouth daily * PREGABALIN 150 MG CAPSULE Take 1 capsule by mouth twice* BACLOFEN 10 MG TABLET Take 1 tablet by mouth twice * ALLOPURINOL 100 MG TABLET Take 1 tablet by mouth once d* COLCHICINE 0.6 MG CAPSULE Take 1 capsule by mouth twice* Patient taking differently: Take 0.6 mg by mouth as neede* NITROGLYCERIN 0.4 MG SUBLINGU* Dissolve 1 tablet under the t* COMPOUNDED PRESCRIPTION Aerosol nebulizer. Dx COPD. CICLOPIROX 8 % TOPICAL SOLUTI* Apply 1 application to affect* ASCORBIC ACID (VITAMIN C) 500* Take 2 tablets by mouth once * COMPOUNDED PRESCRIPTION Please perform nocturnal oxim* CHOLECALCIFEROL (VITAMIN D3) * Take 1 tablet by mouth once d* ASPIRIN 81 MG CHEWABLE TABLET Take 2 tablets by mouth once * THERAPEUTIC MULTIVITAMIN TABL* Take 1 tablet by mouth daily * Problem List As Of Date 10/16/2017 Noted Resolved COPD (chronic obstructive pulmonary disease) [J*INVALID FOR* Priority: B More... Essential hypertension [I10] INVALID FOR* Priority: C More... Chronic atrial fibrillation (HCC) [I48.2] INVALID FOR*06/15/2016 Priority: A More... Hyperlipidemia [E78.5] INVALID FOR* Priority: E More... Degenerative disc disease [DCB8183] INVALID FOR* Lumbar disc disease [M51.9] INVALID FOR* Spinal stenosis [M48.00] INVALID FOR* Priority: K More... 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 CAD (coronary artery disease), [place] coronary *INVALID FOR* Priority: A More... Bronchitis [J40] INVALID FOR* Priority: B More... Preop testing [Z01.818] INVALID FOR*01/17/2014 More... More... Mechanically assisted ventilation (HCC) [Z99.11]INVALID FOR*01/18/2014 Priority: B More... Hypotension [I95.9] INVALID FOR*01/24/2014 Priority: C More... Pain [R52] INVALID FOR* Priority: D More... Leukocytosis [D72.829] INVALID FOR* Priority: I More... Hyponatremia [E87.1] INVALID FOR* Priority: F More... 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.1] INVALID FOR* GERD (gastroesophageal reflux disease) [K21.9] INVALID FOR* Osteopenia [M85.80] INVALID FOR* Lumbar stenosis with neurogenic claudication [M*INVALID FOR* Facet arthropathy, lumbar [M46.96] INVALID FOR* Low back pain [M54.5] INVALID FOR*01/29/2015 Cancer of skin, squamous cell [C44.92] INVALID FOR* Osteoporosis [M81.0] INVALID FOR* Spinal stenosis of lumbar region with radiculop*INVALID FOR*01/29/2015 Bilateral low back pain without sciatica [M54.5]INVALID FOR*10/21/2015 Adjustment disorder with mixed anxiety and depr*INVALID FOR* Chronic bilateral low back pain without sciatic*INVALID FOR*10/22/2015 Decreased pulses in feet [R09.89] INVALID FOR* Dehydration [E86.0] INVALID FOR* More... Abnormal echocardiogram [R93.1] INVALID FOR* PVC's (premature ventricular contractions) [I49*INVALID FOR* SVT (supraventricular tachycardia) (HCC) [I47.1]INVALID FOR* Encounter Status:Closed by GEETHA DAILEY DO on 10/16/17 PROGRESS Observed: 10/16/2017 Status: COMPLETED Source: [place] 12:00 AM [facility] REPOSITORY HNO ID: [id number] Author: Geetha Dailey Service: Vascular Surgery Author Type: Physician Type: Progress Notes Filed: 10/30/2017 5:38 PM Note Text: NAME: KAMILLA DICKSON [facility] NO: [id number] DATE OF SERVICE: 10/16/2017 Subjective: Mr. Dickson is here to follow up on peripheral arterial disease and carotid artery stenosis. He denies any focal neurologic deficit. No numbness, weakness or monocular vision loss. He describes claudication and increased pain with walking, however, mostly contributes this to significant neuropathy. He does have significant spine disease and was planning on getting an appointment with Spine in [place]. Denies rest pain or tissue loss and ulceration. He does smoke and has COPD. He states shortness of breath limits his activities more so than claudication. Objective: His vital signs are stable. He is in no distress. He does have some auditory wheezing. He has no carotid bruits. His strength is equal in upper and lower extremities. He has nonpalpable distal pulses with no ulceration or tissue loss. His carotid duplex demonstrates a right 40-59% stenosis of the right ICA. His subclavian on the right is 50-99%. His left CCA is 50- 99%. Left ICA is 60- 79%, which has been unchanged. There was a slight increase in his right ICA from his prior. His vertebral arteries are both patent and with antegrade flow. His PVRs are stable and demonstrate ABIs of 0.93 on the right and 0.89 on the left. He has borderline disease at rest on the right and mild on the left. Assessment/Plan: 1. Carotid artery disease, asymptomatic. 2. Peripheral arterial disease. Discussed the findings with Mr. Dickson. Recommend continuing on interventional therapy and maximal medical management with antiplatelet therapy and statins. We discussed a walking program. He will get repeat imaging in six months, or sooner with any concerns. Recommended that he return to Podiatry for nail care and some foot care. He will call the office and follow up sooner if he has any new symptoms. Geetha Dailey D.O. KB/[id number] Audio #: [id number] Date Dictated: 10/16/2017 08:59:49 Date Typed: 10/27/2017 06:37:51 Date Revised: PROGRESS Observed: 09/28/2017 Status: COMPLETED Source: [place] 11:06 AM [facility] REPOSITORY O ID: [id number] Author: Julita Alberto Service: (none) Author Type: Physician Type: Progress Notes Filed: 10/02/2017 10:27 AM Note Text: Chief Complaint Patient presents with: Follow Up HPI Kamilla Dickson is a 67 year old male who presents here today for follow-up of chronic back pain. Chronic pain . He is perturbed by the need to have an appt with DR Beard every month for pain refill, Past medical history, appointments, medications, allergies reviewed. Previous Medical History PAST MEDICAL HISTORY Diagnosis Date - Arthritis back and hips - Atrial fibrillation (HCC) - COPD (chronic obstructive pulmonary disease) (HCC) - Degenerative disc disease - Dehydration 2016 Associated with MATHIEU. - Depression - Herniated disc - High blood pressure - High cholesterol - Nocturnal hypoxemia - OA (osteoarthritis) - Seasonal allergies - Spinal stenosis Previous Surgical History PAST SURGICAL HISTORY Procedure Laterality Date - CARPAL TUNNEL bilateral. done by [facility] - CATARACT SURGERY, [facility] - COLONOSCOP W/ OR W/O [facility] SPEC 11/21/13 Colonoscopy - COLONOSCOPY AND POLYPECTOMY 01/04/08 hyperplastic polyps, diverticulosis Family History FAMILY HISTORY Problem Relation Age of Onset - Cancer Father Some GI cancer. - None Mother of old age at 99 years old. - Ischemic Heart Disease Paternal Grandmother Heart attack at old age. Patient Allergies ALLERGIES Allergen Reactions - No Known Allergies Other: See Comments Current Medications Current Outpatient Prescriptions on File Prior to Visit: albuterol (PROVENTIL) 2.5 mg /3 mL (0.083 %) nebulizer solution Use 3 mL via nebulizer every 4 hours as needed for Wheezing/Shortness of Breath. Use over 5-15minutes. hydroxychloroquine (PLAQUENIL) 200 mg tablet TAKE 2 TABLETS BY MOUTH ONCE DAILY metoprolol succinate ER (TOPROL XL) 25 mg 24 hr tablet Take 1 tablet by mouth once daily. spironolactone (ALDACTONE) 25 mg tablet Take 0.5 tablets by mouth once daily. alendronate (FOSAMAX) 70 mg tablet Take 1 tablet by mouth once each week. tamsulosin ER (FLOMAX) 0.4 mg cp24 Take 1 capsule by mouth once daily. traMADol (ULTRAM) 50 mg tablet Take 50 mg by mouth four times daily as needed (can take 1 at bedtime as needed). ipratropium (ATROVENT) 0.02 % nebulizer solution Use 2.5 mL via nebulizer four times daily. budesonide (PULMICORT) 0.5 mg/2 mL nebulizer solution Use 2 mL via nebulizer twice daily. albuterol HFA (PROAIR HFA) 90 mcg/actuation inhaler 2 Puffs every 6 hours as needed. Take as directed omeprazole (PRILOSEC) 20 mg capsule Take 1 capsule by mouth daily before breakfast. 1/2 hr before meal. atorvastatin (LIPITOR) 10 mg tablet Take 1 tablet by mouth daily at bedtime. For cholesterol. pregabalin (LYRICA) 150 mg capsule Take 1 capsule by mouth twice daily. baclofen (LIORESAL) 10 mg tablet Take 1 tablet by mouth twice daily as needed. allopurinol (ZYLOPRIM) 100 mg tablet Take 1 tablet by mouth once daily. colchicine (MITIGARE) 0.6 mg capsule Take 1 capsule by mouth twice daily. (Patient taking differently: Take 0.6 mg by mouth as needed. ) nitroglycerin sublingual (NITROQUICK) 0.4 mg SL tablet Dissolve 1 tablet under the tongue every 5 minutes as needed for Chest Pain (If chest pain no better after 3 tablets, call 911). COMPOUNDED PRESCRIPTION Please perform nocturnal oximetry on 2 liters oxygen nasal cannula. Assoc dx: Severe COPD J44.9. Please fax results to [phone]. COMPOUNDED PRESCRIPTION Aerosol nebulizer. Dx COPD. Ciclopirox (LOPROX) 8 % solution Apply 1 application to affected area daily at bedtime. ascorbic acid (VITAMIN C) 500 mg tablet Take 2 tablets by mouth once daily. COMPOUNDED PRESCRIPTION Please perform nocturnal oximetry on room air.Diagnosis: HypoxiaPlease fax results to [phone] Cholecalciferol, Vitamin D3, 2,000 unit cap Take 1 tablet by mouth once daily. aspirin 81 mg chewable tablet Take 2 tablets by mouth once daily. therapeutic multivitamin (THERA VITAMIN) tablet Take 1 tablet by mouth daily with breakfast. COLCRYS 0.6 mg tablet Take 0.6 mg by mouth twice daily. nicotine (NICODERM CQ) 14 mg/24 hr Apply 1 Patch as directed every 24 hours. (Patient not taking: Reported on 09/28/2017 ) No current facility-administered medications on file prior to visit. Social History Social History Marital status: Spouse name: Years of education: Number of children: 1 Occupational History Occupation Employer Comment Retired [employer] Social History Main Topics Smoking status: Current Every Day Smoker Packs/day: 0.50 Years: 45.00 Types: Cigarettes, Cigars Start date: 01/13/2015 Smokeless tobacco: Never Used Comment: quit in 2013 for 1 year Alcohol use: Yes Comment: Very seldom. 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 [place]. Lives with his sister Samira Exercise: Negligible. Diet: lives on sandwiches. 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 ROS: General: Feels well, no weight changes, fever, chills. HEENT: No sinus congestion, earache, sore throat. Cardiac: No chest pain, palpitations, shortness of breath Resp: No cough, wheeze. GI: No reflux symptoms, food intolerance, bowel changes. : No urinary frequency, dysuria. MS: No pain or joint complaints. PHYSICAL EXAMINATION BP 131/60 Pulse 93 Wt 63.5 kg (140 lb) BMI 25.61 kg/m? General: Alert and oriented, no distress, pleasant and cooperative. Heart: Regular, normal S1 and S2, no murmurs, rubs, or gallops Lungs: Clear to auscultation bilaterally Abdomen: Benign Extremities: Feet/ankles without edema, posterior tibial pulses full and symmetrical Health Maintenance List DTAP,TDAP,TD(1 - Tdap) due on 08/08/1967 COLORECTAL CANCER SCREENING,SEE MODIFIER due on 11/21/2018 DIABETES SCREEN due on 09/12/2020 LIPID SCREEN due on 09/12/2022 PROSTATE CANCER SCREENING DISCUSSION Completed ABDOMINAL AORTIC ANEURYSM SCREENING TOPIC Completed ADULT PREVNAR-13 Completed INFLUENZA Completed HEPATITIS C SCREENING Completed PNEUMOVAX AGE 65 AND OVER WITH 5YR LOOKBACK Completed Data reviewed Assessment/Plan: (M54.42, M54.41, G89.29) Chronic bilateral low back pain with bilateral sciatica (primary encounter diagnosis) Comment: Plan: CONSULT TO [facility] [place]/SPINE/OCC MED Ongoing (M48.062) Lumbar stenosis with neurogenic claudication Comment: Plan: CONSULT TO [facility]/SPINE/OCC MED No medications selected for refill. RTO : Prn/ Will consider assuming his pain med Rx's if necessary, with requisite visits etc. Julita Alberto MD PROGRESS Observed: 09/28/2017 Status: COMPLETED Source: [place] 11:06 AM [facility] REPOSITORY HNO ID: [id number] Author: Soto Ahuja Service: (none) Author Type: (none) Type: Progress Notes Filed: 10/02/2017 10:27 AM Note Text: DTAP,TDAP,TD(1 - Tdap) due on 08/08/1967 CNOV Observed: 09/28/2017 Status: COMPLETED Source: [place] 11:00 AM [facility] REPOSITORY Office Visit (FPWADS) KAMILLA DICKSON ([id number]) 1950 M Date Time Provider Department 09/28/17 11:00 AM JULITA ALBERTO During your visit today, we recorded the following information about you: Pulse Blood pressure Weight 93/minute 131/60 63.5 kg Soto Ahuja 10/02/2017 10:27 AM Signed DTAP,TDAP,TD(1 - Tdap) due on 08/08/1967 Julita Alberto MD 10/02/2017 10:27 AM Signed Chief Complaint Patient presents with: Follow Up HPI Kamilla Dickson is a 67 year old male who presents here today for follow-up of chronic back pain. Chronic pain . He is perturbed by the need to have an appt with DR Beard every month for pain refill, Past medical history, appointments, medications, allergies reviewed. Previous Medical History PAST MEDICAL HISTORY Diagnosis Date - Arthritis back and hips - Atrial fibrillation (HCC) - COPD (chronic obstructive pulmonary disease) (HCC) - Degenerative disc disease - Dehydration 2015 Associated with MATHIEU. - Depression - Herniated disc - High blood pressure - High cholesterol - Nocturnal hypoxemia - OA (osteoarthritis) - Seasonal allergies - Spinal stenosis Previous Surgical History PAST SURGICAL HISTORY Procedure Laterality Date - CARPAL TUNNEL bilateral. done by [facility] - CATARACT SURGERY, [facility] - COLONOSCOP W/ OR W/O [facility] SPEC 11/21/13 Colonoscopy - COLONOSCOPY AND POLYPECTOMY 01/04/08 hyperplastic polyps, diverticulosis Family History FAMILY HISTORY Problem Relation Age of Onset - Cancer Father Some GI cancer. - None Mother of old age at 99 years old. - Ischemic Heart Disease Paternal Grandmother Heart attack at old age. Patient Allergies ALLERGIES Allergen Reactions - No Known Allergies Other: See Comments Current Medications Current Outpatient Prescriptions on File Prior to Visit: albuterol (PROVENTIL) 2.5 mg /3 mL (0.083 %) nebulizer solution Use 3 mL via nebulizer every 4 hours as needed for Wheezing/Shortness of Breath. Use over 5-15minutes. hydroxychloroquine (PLAQUENIL) 200 mg tablet TAKE 2 TABLETS BY MOUTH ONCE DAILY metoprolol succinate ER (TOPROL XL) 25 mg 24 hr tablet Take 1 tablet by mouth once daily. spironolactone (ALDACTONE) 25 mg tablet Take 0.5 tablets by mouth once daily. alendronate (FOSAMAX) 70 mg tablet Take 1 tablet by mouth once each week. tamsulosin ER (FLOMAX) 0.4 mg cp24 Take 1 capsule by mouth once daily. traMADol (ULTRAM) 50 mg tablet Take 50 mg by mouth four times daily as needed (can take 1 at bedtime as needed). ipratropium (ATROVENT) 0.02 % nebulizer solution Use 2.5 mL via nebulizer four times daily. budesonide (PULMICORT) 0.5 mg/2 mL nebulizer solution Use 2 mL via nebulizer twice daily. albuterol HFA (PROAIR HFA) 90 mcg/actuation inhaler 2 Puffs every 6 hours as needed. Take as directed omeprazole (PRILOSEC) 20 mg capsule Take 1 capsule by mouth daily before breakfast. 1/2 hr before meal. atorvastatin (LIPITOR) 10 mg tablet Take 1 tablet by mouth daily at bedtime. For cholesterol. pregabalin (LYRICA) 150 mg capsule Take 1 capsule by mouth twice daily. baclofen (LIORESAL) 10 mg tablet Take 1 tablet by mouth twice daily as needed. allopurinol (ZYLOPRIM) 100 mg tablet Take 1 tablet by mouth once daily. colchicine (MITIGARE) 0.6 mg capsule Take 1 capsule by mouth twice daily. (Patient taking differently: Take 0.6 mg by mouth as needed. ) nitroglycerin sublingual (NITROQUICK) 0.4 mg SL tablet Dissolve 1 tablet under the tongue every 5 minutes as needed for Chest Pain (If chest pain no better after 3 tablets, call 911). COMPOUNDED PRESCRIPTION Please perform nocturnal oximetry on 2 liters oxygen nasal cannula. Assoc dx: Severe COPD J44.9. Please fax results to [phone]. COMPOUNDED PRESCRIPTION Aerosol nebulizer. Dx COPD. Ciclopirox (LOPROX) 8 % solution Apply 1 application to affected area daily at bedtime. ascorbic acid (VITAMIN C) 500 mg tablet Take 2 tablets by mouth once daily. COMPOUNDED PRESCRIPTION Please perform nocturnal oximetry on room air.Diagnosis: HypoxiaPlease fax results to [phone] Cholecalciferol, Vitamin D3, 2,000 unit cap Take 1 tablet by mouth once daily. aspirin 81 mg chewable tablet Take 2 tablets by mouth once daily. therapeutic multivitamin (THERA VITAMIN) tablet Take 1 tablet by mouth daily with breakfast. COLCRYS 0.6 mg tablet Take 0.6 mg by mouth twice daily. nicotine (NICODERM CQ) 14 mg/24 hr Apply 1 Patch as directed every 24 hours. (Patient not taking: Reported on 09/28/2017 ) No current facility-administered medications on file prior to visit. Social History Social History Marital status: Spouse name: Years of education: Number of children: 1 Occupational History Occupation Employer Comment Retired [employer] Social History Main Topics Smoking status: Current Every Day Smoker Packs/day: 0.50 Years: 45.00 Types: Cigarettes, Cigars Start date: 01/13/2015 Smokeless tobacco: Never Used Comment: quit in 2013 for 1 year Alcohol use: Yes Comment: Very seldom. 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 [place]. Lives with his sister Samira Exercise: Negligible. Diet: lives on sandwiches. 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 ROS: General: Feels well, no weight changes, fever, chills. HEENT: No sinus congestion, earache, sore throat. Cardiac: No chest pain, palpitations, shortness of breath Resp: No cough, wheeze. GI: No reflux symptoms, food intolerance, bowel changes. : No urinary frequency, dysuria. MS: No pain or joint complaints. PHYSICAL EXAMINATION BP 131/60 Pulse 93 Wt 63.5 kg (140 lb) BMI 25.61 kg/m? General: Alert and oriented, no distress, pleasant and cooperative. Heart: Regular, normal S1 and S2, no murmurs, rubs, or gallops Lungs: Clear to auscultation bilaterally Abdomen: Benign Extremities: Feet/ankles without edema, posterior tibial pulses full and symmetrical Health Maintenance List DTAP,TDAP,TD(1 - Tdap) due on 08/08/1967 COLORECTAL CANCER SCREENING,SEE MODIFIER due on 11/21/2018 DIABETES SCREEN due on 09/12/2020 LIPID SCREEN due on 09/12/2022 PROSTATE CANCER SCREENING DISCUSSION Completed ABDOMINAL AORTIC ANEURYSM SCREENING TOPIC Completed ADULT PREVNAR-13 Completed INFLUENZA Completed HEPATITIS C SCREENING Completed PNEUMOVAX AGE 65 AND OVER WITH 5YR LOOKBACK Completed Data reviewed Assessment/Plan: (M54.42, M54.41, G89.29) Chronic bilateral low back pain with bilateral sciatica (primary encounter diagnosis) Comment: Plan: CONSULT TO [facility]/SPINE/OCC MED Ongoing (M48.062) Lumbar stenosis with neurogenic claudication Comment: Plan: CONSULT TO [facility]/SPINE/OCC MED No medications selected for refill. RTO : Prn/ Will consider assuming his pain med Rx's if necessary, with requisite visits etc. Julita Alberto MD Referring Provider: SELF [[id number]] Allergies As of Date: 09/28/2017 Noted Allergy Reaction NO KNOWN ALLERGIES 01/13/2017 14 - Other: See Comments Date Reviewed: 09/28/2017 Reviewed by: Soto Ahuja - Fully Assessed Reason for Visit: Follow Up [171] Primary Visit Diagnosis:Chronic bilateral low back pain with bilateral sciatica [M54.42, M54.41, G89.29] Other Visit Diagnosis:Lumbar stenosis with neurogenic claudication [M48.062] Order(s):CONSULT TO [facility]/SPINE/[facility] MED [[id number]] Order #: [id number]: 1 Prescriptions as of 09/28/2017 Sig: ALBUTEROL SULFATE 2.5 MG/3 ML* Use 3 mL via nebulizer every * HYDROXYCHLOROQUINE 200 MG TAB* TAKE 2 TABLETS BY MOUTH ONCE * METOPROLOL SUCCINATE ER 25 MG* Take 1 tablet by mouth once d* X SPIRONOLACTONE 25 MG TABLET Take 0.5 tablets by mouth onc* ALENDRONATE 70 MG TABLET Take 1 tablet by mouth once e* TAMSULOSIN 0.4 MG CAPSULE Take 1 capsule by mouth once * TRAMADOL 50 MG TABLET Take 50 mg by mouth four time* IPRATROPIUM BROMIDE 0.02 % SO* Use 2.5 mL via nebulizer four* BUDESONIDE 0.5 MG/2 ML SUSPEN* Use 2 mL via nebulizer twice * ALBUTEROL SULFATE HFA 90 MCG/* 2 Puffs every 6 hours as need* OMEPRAZOLE 20 MG CAPSULE,YOKO* Take 1 capsule by mouth daily* ATORVASTATIN 10 MG TABLET Take 1 tablet by mouth daily * PREGABALIN 150 MG CAPSULE Take 1 capsule by mouth twice* BACLOFEN 10 MG TABLET Take 1 tablet by mouth twice * ALLOPURINOL 100 MG TABLET Take 1 tablet by mouth once d* COLCHICINE 0.6 MG CAPSULE Take 1 capsule by mouth twice* Patient taking differently: Take 0.6 mg by mouth as neede* NITROGLYCERIN 0.4 MG SUBLINGU* Dissolve 1 tablet under the t* COMPOUNDED PRESCRIPTION Aerosol nebulizer. Dx COPD. CICLOPIROX 8 % TOPICAL SOLUTI* Apply 1 application to affect* ASCORBIC ACID (VITAMIN C) 500* Take 2 tablets by mouth once * COMPOUNDED PRESCRIPTION Please perform nocturnal oxim* CHOLECALCIFEROL (VITAMIN D3) * Take 1 tablet by mouth once d* ASPIRIN 81 MG CHEWABLE TABLET Take 2 tablets by mouth once * THERAPEUTIC MULTIVITAMIN TABL* Take 1 tablet by mouth daily * COLCRYS 0.6 MG TABLET Take 0.6 mg by mouth twice da* NICOTINE 14 MG/24 HR DAILY TR* Apply 1 Patch as directed nicol* Patient not taking: Reported on 09/28/2017 Problem List As Of Date 09/28/2017 Noted Resolved COPD (chronic obstructive pulmonary disease) [J*INVALID FOR* Priority: B More... Essential hypertension [I10] INVALID FOR* Priority: C More... Chronic atrial fibrillation (HCC) [I48.2] INVALID FOR*06/15/2016 Priority: A More... Hyperlipidemia [E78.5] INVALID FOR* Priority: E More... Degenerative disc disease [KAC7059] INVALID FOR* Lumbar disc disease [M51.9] INVALID FOR* Spinal stenosis [M48.00] INVALID FOR* Priority: K More... 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 CAD (coronary artery disease), [place] coronary *INVALID FOR* Priority: A More... Bronchitis [J40] INVALID FOR* Priority: B More... Preop testing [Z01.818] INVALID FOR*01/17/2014 More... More... Mechanically assisted ventilation (HCC) [Z99.11]INVALID FOR*01/18/2014 Priority: B More... Hypotension [I95.9] INVALID FOR*01/24/2014 Priority: C More... Pain [R52] INVALID FOR* Priority: D More... Leukocytosis [D72.829] INVALID FOR* Priority: I More... Hyponatremia [E87.1] INVALID FOR* Priority: F More... 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.1] INVALID FOR* GERD (gastroesophageal reflux disease) [K21.9] INVALID FOR* Osteopenia [M85.80] INVALID FOR* Lumbar stenosis with neurogenic claudication [M*INVALID FOR* Facet arthropathy, lumbar [M46.96] INVALID FOR* Low back pain [M54.5] INVALID FOR*01/29/2015 Cancer of skin, squamous cell [C44.92] INVALID FOR* Osteoporosis [M81.0] INVALID FOR* Spinal stenosis of lumbar region with radiculop*INVALID FOR*01/29/2015 Bilateral low back pain without sciatica [M54.5]INVALID FOR*10/21/2015 Adjustment disorder with mixed anxiety and depr*INVALID FOR* Chronic bilateral low back pain without sciatic*INVALID FOR*10/22/2015 Decreased pulses in feet [R09.89] INVALID FOR* Dehydration [E86.0] INVALID FOR* More... Abnormal echocardiogram [R93.1] INVALID FOR* PVC's (premature ventricular contractions) [I49*INVALID FOR* SVT (supraventricular tachycardia) (HCC) [I47.1]INVALID FOR* Medications Discontinued During This Encounter COMPOUNDED PRESCRIPTION 1 Ea* 0 07/14/2016 10/02/2017 Class: Print RX Sig: Please perform nocturnal oximetry on 2 liters oxygen nasal cannula. Assoc dx: Severe COPD J44.9. Please fax results to [phone]. Disc: Reason for discontinue is not on file. Encounter Status:Closed by NETO ALBERTO MD on 10/02/17 BASIC METABOLIC PANL Collected: 09/12/2017 Status: F Source: [place] 9:16 AM [facility] REPOSITORY TYPE CODE TESTS RESULT OUT OF REFERENCE UNITS RANGE LAB GLU 74-99 mg/dL Glucose 84 Result Comment: The [place] Diabetes Association (ADA) provides guidance for cutoff values for fasting glucose and random glucose. The ADA defines fasting as no caloric intake for at least 8 hours. Fas ting plasma glucose results between 100 to 125 mg/dL indicate increased risk for diabetes (prediabetes). Fasting plasma glucose results greater than or equal to 126 mg/dL meet the criteria for diagnosis of diabetes. In the absence of unequivocal hyperglycemia, results should be confirmed by repeat testing. In a patient with classic symptoms of hyperglycemia or hyperglycemic crisis, random plasma glucose results greater than or equal to 200 mg/dL meet the criteria for diagnosis of diabetes. Reference: Standards of Medical Care in Diabetes 2016, [place] [employer] Association. Diabetes Care. 2016.39(Suppl 1). LAB BUN 9-24 mg/dL BUN 13 LAB CRET 0.73-1.22 mg/dL Creatinine 0.99 LAB NA 136-144 mmol/L Sodium 140 LAB K 3.7-5.1 mmol/L Potassium 4.6 LAB CL 97-105 mmol/L Chloride 103 LAB CO2 22-30 mmol/L CO2 27 LAB AGAP 9-18 mmol/L Anion Gap 10 LAB CA 8.5-10.2 mg/dL Calcium, Total 9.3 LAB GFRAA eGFR- Amer. >60 LAB GFRNAA . eGFR-All Other Races >60 Result Comment: eGFR (Estimated GFR) Units of measure: mL/min/1.73 meters squared eGFR is derived from the reexpressed MDRD Study equation using the following parameters: serum creatinine, age, gender and race. The creatinine assay has been calibrated to be traceable to IDMS. An eGFR <60 mL/min/1.73m2 for >3 months is consistent with chronic kidney disease. Refer to KDOQI guidelines for clinical interpretation. In patients with unstable renal function, e.g. those with acute kidney injury, the eGFR may not accurately reflect actual GFR. Performed By: #### BMP #### [facility] [address] [place], [place] [address] HEPATIC FUNCTN PANEL Collected: 09/12/2017 Status: F Source: [place] 9:15 AM [facility] REPOSITORY TYPE CODE TESTS RESULT OUT OF REFERENCE UNITS RANGE LAB ALB 3.9-4.9 g/dL Albumin 4.1 LAB TBIL 0.2-1.3 mg/dL Bilirubin, Total 0.3 LAB CBIL <0.2 mg/dL Bilirubin,Conjuga <0.2 al LAB ALKP 36-108 U/L Alkaline Phosphatase 83 LAB AST 14-40 U/L AST 30 LAB ALT 10-54 U/L ALT 21 LAB TP 6.3-8.0 g/dL Protein, Total 7.3 Performed By: #### HFP, LIPB #### [facility] [address] [place], [place] [address] LIPID PANEL, BASIC Collected: 09/12/2017 Status: F Source: [place] 9:15 AM [facility] REPOSITORY TYPE CODE TESTS RESULT OUT OF REFERENCE UNITS RANGE LAB CHOL <200 mg/dL Cholesterol 138 Result Comment: <200 mg/dL, Desirable 200-239 mg/dL, Borderline high >239 mg/dL, High LAB TRIGLY <150 mg/dL Triglyceride 45 Result Comment: <150 mg/dL, Normal 150-199 mg/dL, Borderline high 200-499 mg/dL, High >499 mg/dL, Very high LAB HDL >39 mg/dL HDL-Cholesterol 81 Result Comment: 40-59 mg/dL, Acceptable >59 mg/dL, High: Negative risk factor for coronary heart disease <40 mg/dL, Low: Positive risk factor for coronary heart disease LAB LDL <100 mg/dL LDL-Cholesterol 48 Result Comment: <100 mg/dL, Optimal 100-129 mg/dL, Near optimal/above optimal 130-159 mg/dL, Borderline high 160-189 mg/dL, High >189 mg/dL, Very high Secondary prevention optimal LDL Cholesterol levels are recommended to be < 70 mg/dL LAB NONHDL <130 mg/dL Non HDL Cholesterol 57 Result Comment: <130 mg/dL, Optimal 130-159 mg/dL, Near optimal/above optimal 160-189 mg/dL, Borderline high 190-219 mg/dL, High >219 mg/dL, Very high Secondary prevention optimal non HDL Cholesterol levels are recommended to be < 100 mg/dL LAB FT hrs Fasting Time 14 LAB VLDL <30 mg/dL VLDL Cholesterol 9 LAB TCHDL <5.10 TC:HDL Ratio 1.70 LAB LDLHDL <2.54 LDL:HDL Ratio 0.59 Result Comment: Reference: 1. National Cholesterol Education Program ATP III Guideline At-A-Glance Quick Desk Reference: National Heart, Lung, and Blood [place]. National Institutes of Health. 2001: NIH Publication No. 01-3305. 2. An International Atherosclerosis Society position paper: global recommendations for the management of dyslipidemia: executive summary, Atherosclerosis. 2014: 232(2):410-413. Performed By: #### HFP, LIPB #### [facility] [address] [place], [place] [address] PROGRESS Observed: 07/31/2017 Status: COMPLETED Source: [place] 10:53 AM [facility] REPOSITORY HNO ID: [id number] Author: Ham Lopez Service: (none) Author Type: Physician Type: Progress Notes Filed: 08/01/2017 9:09 AM Note Text: PERTINENT CARDIAC HISTORY ASHD, CABGx2 LAD and RCA 01/17/14 PAF - PVI with CANDIDA clip - 2013 Advanced chronic obstructive pulmonary disease. HTN HL Carotid artery disease ADHERENCE TO GUIDELINES KHURRAM-I or ARB for HF with prior LVEF<40 (NQF 0081) - hypotension ASA or Plavix for ASHD (NQF 0067) - met Beta janet for ASHD with prior [place] or prior LVEF<40 (NQF 0070) - met Beta janet for HF with prior LVEF<40 (NQF 0083) - N/A KHURRAM-I or ARB for ASHD with DM or prior LVEF<40 (NQF 0066) - N/A Statin therapy for ASHD or FHL or DM - met BMI documented and plan if >25 (NQF 0421) - lifestyle recommendation form Tobacco use screening and referral (NQF 0028) - lifestyle recommendation form Recommendation for whole food, plant based diet - lifestyle recommendation form CLINICAL IMPRESSION/PLAN: Kamilla Dickson is doing well. His statin therapy has been down titrated as his LDL was markedly suppressed. He's had no recent chest discomfort. He's had no palpitations. He is tolerating his beta janet well, despite his COPD. I advised him that it is acceptable to use his diuretic on a prn basis. He has been doing this and his edema is well controlled. I will see him in 8 months or as needed. If there is increased chest pain or shortness of breath, he has been advised to contact me. Written and verbal health teaching given to patient, patient verbalizes understanding and agrees with treatment plan. This note was generated using [employer] voice recognition system, and there may be some incorrect words, spellings, and punctuation that were not noted in checking the note before saving. DIAGNOSIS FOR VISIT: ASHD SVT HISTORY OF PRESENT ILLNESS Kamilla Dickson returns for follow-up of multiple cardiac issues, as noted above. He reports stable exercise tolerance. His lung disease has been under good control. He has had no orthopnea. He denies chest discomfort, edema, syncope, palpitations, TIAs, amaurosis and claudication ALLERGIES: ALLERGIES Allergen Reactions - No Known Allergies Other: See Comments CURRENT OUTPATIENT MEDICATIONS: hydroxychloroquine (PLAQUENIL) 200 mg tablet TAKE 2 TABLETS BY MOUTH ONCE DAILY metoprolol succinate ER (TOPROL XL) 25 mg 24 hr tablet Take 1 tablet by mouth once daily. spironolactone (ALDACTONE) 25 mg tablet Take 0.5 tablets by mouth once daily. alendronate (FOSAMAX) 70 mg tablet Take 1 tablet by mouth once each week. tamsulosin ER (FLOMAX) 0.4 mg cp24 Take 1 capsule by mouth once daily. COLCRYS 0.6 mg tablet Take 0.6 mg by mouth twice daily. traMADol (ULTRAM) 50 mg tablet Take 50 mg by mouth four times daily as needed (can take 1 at bedtime as needed). nicotine (NICODERM CQ) 14 mg/24 hr Apply 1 Patch as directed every 24 hours. ipratropium (ATROVENT) 0.02 % nebulizer solution Use 2.5 mL via nebulizer four times daily. budesonide (PULMICORT) 0.5 mg/2 mL nebulizer solution Use 2 mL via nebulizer twice daily. albuterol (PROVENTIL) 2.5 mg /3 mL (0.083 %) nebulizer solution Use 3 mL via nebulizer every 4 hours as needed for Wheezing/Shortness of Breath. Use over 5-15minutes. albuterol HFA (PROAIR HFA) 90 mcg/actuation inhaler 2 Puffs every 6 hours as needed. Take as directed omeprazole (PRILOSEC) 20 mg capsule Take 1 capsule by mouth daily before breakfast. 1/2 hr before meal. atorvastatin (LIPITOR) 10 mg tablet Take 1 tablet by mouth daily at bedtime. For cholesterol. pregabalin (LYRICA) 150 mg capsule Take 1 capsule by mouth twice daily. baclofen (LIORESAL) 10 mg tablet Take 1 tablet by mouth twice daily as needed. allopurinol (ZYLOPRIM) 100 mg tablet Take 1 tablet by mouth once daily. colchicine (MITIGARE) 0.6 mg capsule Take 1 capsule by mouth twice daily. nitroglycerin sublingual (NITROQUICK) 0.4 mg SL tablet Dissolve 1 tablet under the tongue every 5 minutes as needed for Chest Pain (If chest pain no better after 3 tablets, call 911). COMPOUNDED PRESCRIPTION Please perform nocturnal oximetry on 2 liters oxygen nasal cannula. Assoc dx: Severe COPD J44.9. Please fax results to [phone]. albuterol (PROVENTIL) 5 mg/mL nebu Inhale 0.5 mL as instructed one time only for 1 dose. 1 DOSE NOW - BACK OFFICE. PLACE 0.5 ML PER DROPPER AND 2.5 ML OF NORMAL SALINE INTO RESERVOIR. COMPOUNDED PRESCRIPTION Aerosol nebulizer. Dx COPD. Ciclopirox (LOPROX) 8 % solution Apply 1 application to affected area daily at bedtime. ascorbic acid (VITAMIN C) 500 mg tablet Take 2 tablets by mouth once daily. COMPOUNDED PRESCRIPTION Please perform nocturnal oximetry on room air.Diagnosis: HypoxiaPlease fax results to [phone] Cholecalciferol, Vitamin D3, 2,000 unit cap Take 1 tablet by mouth once daily. aspirin 81 mg chewable tablet Take 2 tablets by mouth once daily. therapeutic multivitamin (THERA VITAMIN) tablet Take 1 tablet by mouth daily with breakfast. PHYSICAL EXAMINATION: VITAL SIGNS: BP 138/61 Pulse 80 Wt 138 lb 9.6 oz (62.9kg) Chest: Clear to percussion and auscultation. There is mild expiratory prolongation. There is no wheezing. Trachea is midline. Air entry is equal. Cardiac: Regular rhythm. S1 and S2 are normal. PMI is nondisplaced. There is a soft systolic ejection murmur. Carotids are brisk without bruits. JVP is less than 10 cm. Abdomen: Soft and nontender. There are no pulsatile masses or bruits. No liver enlargement. Bowel sounds are active. Extremities: No edema. Pulses are intact and symmetrical. Recent labs reviewed. Renal function is slightly lower. TSH was normal. Electronically Signed: Ham Lopez MD July 31, 2017 10:59 AM CC: Julita Alberto MD CNOV Observed: 07/31/2017 Status: COMPLETED Source: [place] 10:30 AM [facility] REPOSITORY Office Visit (AGCARDWST) KAMILLA DICKSON ([id number]) 1950 M Date Time Provider Department 07/31/17 10:30 AM HAM LOPEZ AGCARDWSAbeba During your visit today, we recorded the following information about you: Pulse Blood pressure Weight 80/minute 138/61 62.9 kg Ham Lopez MD 07/31/2017 10:53 AM Signed LIFESTYLE CHANGE A healthy lifestyle is the most important component of your overall treatment plan. Please give serious thought to the following areas and commit to making long term care pharmacist changes. EAT A WHOLE FOOD, PLANT BASED DIET The nutrition your body gets is more important than the medicine you take. What matters most is the overall way you eat. We encourage you to minimize the use of animal products (which include dairy and all meats except fatty fish) and use whole, unprocessed plant foods to provide your protein, vitamins and other nutrients. We have a lot of information to share with you on this topic. We also hold Shared Medical Appointments, where you can come visit with Dr. Lopez in the company of other patients and spend over an hour talking about the challenges of changing the way you eat. This is not a ANDquot;dietANDquot;. It is a way of life that you will keep with you. EXERCISE REGULARLY It is not important to spend hours in the gym, lifting weights and perspiring heavily. A total of 2-3 hours per week of aerobic (causing you to be moderately short of breath) exercise is sufficient to improve your health. Talk to us before you begin a new exercise program, if you have heart disease or experience shortness of breath or chest pain. REDUCE STRESS Chronic emotional and physical stress leads to disease. Ways of reducing stress include meditation, visualization, prayer, yoga and other forms of relaxation therapy. Consistency is the gerard. Find a technique that works for you and do it every day. CULTIVATE RELATIONSHIPS Loneliness and isolation have a major negative impact on health. Seek out others who can love, care for and nurture you. Avoid hurtful relationships. MAINTAIN IDEAL BODY WEIGHT The best way to do this is to do all the things above. Our bodies naturally find the right weight if we keep moving and feed ourselves the right food. If your BMI is greater than 25, we strongly recommend a referral to a weight management program. Please speak to us or your family physician about available programs. AVOID NICOTINE IN ALL FORMS This includes all tobacco products, whether chewed, smoked, vaped, or rubbed on the skin. Smoking cessation programs, which can make use of tobacco substitutes, medications to suppress cravings and behavior management, are available. Please contact your family physician about programs in your area. Ham Lopez MD 08/01/2017 9:09 AM Signed PERTINENT CARDIAC HISTORY ASHD, CABGx2 LAD and RCA 01/17/14 PAF - PVI with CANDIDA clip - 2013 Advanced chronic obstructive pulmonary disease. HTN HL Carotid artery disease ADHERENCE TO GUIDELINES KHURRAM-I or ARB for HF with prior LVEFANDlt;40 (NQF 0081) - hypotension ASA or Plavix for ASHD (NQF 0067) - met Beta janet for ASHD with prior [place] or prior LVEFANDlt;40 (NQF 0070) - met Beta janet for HF with prior LVEFANDlt;40 (NQF 0083) - N/A KHURRAM-I or ARB for ASHD with DM or prior LVEFANDlt;40 (NQF 0066) - N/A Statin therapy for ASHD or FHL or DM - met BMI documented and plan if ANDgt;25 (NQF 0421) - lifestyle recommendation form Tobacco use screening and referral (NQF 0028) - lifestyle recommendation form Recommendation for whole food, plant based diet - lifestyle recommendation form CLINICAL IMPRESSION/PLAN: Kamilla Dickson is doing well. His statin therapy has been down titrated as his LDL was markedly suppressed. He's had no recent chest discomfort. He's had no palpitations. He is tolerating his beta janet well, despite his COPD. I advised him that it is acceptable to use his diuretic on a prn basis. He has been doing this and his edema is well controlled. I will see him in 8 months or as needed. If there is increased chest pain or shortness of breath, he has been advised to contact me. Written and verbal health teaching given to patient, patient verbalizes understanding and agrees with treatment plan. This note was generated using [employer] voice recognition system, and there may be some incorrect words, spellings, and punctuation that were not noted in checking the note before saving. DIAGNOSIS FOR VISIT: ASHD SVT HISTORY OF PRESENT ILLNESS Kamilla Dickson returns for follow-up of multiple cardiac issues, as noted above. He reports stable exercise tolerance. His lung disease has been under good control. He has had no orthopnea. He denies chest discomfort, edema, syncope, palpitations, TIAs, amaurosis and claudication ALLERGIES: ALLERGIES Allergen Reactions - No Known Allergies Other: See Comments CURRENT OUTPATIENT MEDICATIONS: hydroxychloroquine (PLAQUENIL) 200 mg tablet TAKE 2 TABLETS BY MOUTH ONCE DAILY metoprolol succinate ER (TOPROL XL) 25 mg 24 hr tablet Take 1 tablet by mouth once daily. spironolactone (ALDACTONE) 25 mg tablet Take 0.5 tablets by mouth once daily. alendronate (FOSAMAX) 70 mg tablet Take 1 tablet by mouth once each week. tamsulosin ER (FLOMAX) 0.4 mg cp24 Take 1 capsule by mouth once daily. COLCRYS 0.6 mg tablet Take 0.6 mg by mouth twice daily. traMADol (ULTRAM) 50 mg tablet Take 50 mg by mouth four times daily as needed (can take 1 at bedtime as needed). nicotine (NICODERM CQ) 14 mg/24 hr Apply 1 Patch as directed every 24 hours. ipratropium (ATROVENT) 0.02 % nebulizer solution Use 2.5 mL via nebulizer four times daily. budesonide (PULMICORT) 0.5 mg/2 mL nebulizer solution Use 2 mL via nebulizer twice daily. albuterol (PROVENTIL) 2.5 mg /3 mL (0.083 %) nebulizer solution Use 3 mL via nebulizer every 4 hours as needed for Wheezing/Shortness of Breath. Use over 5-15minutes. albuterol HFA (PROAIR HFA) 90 mcg/actuation inhaler 2 Puffs every 6 hours as needed. Take as directed omeprazole (PRILOSEC) 20 mg capsule Take 1 capsule by mouth daily before breakfast. 1/2 hr before meal. atorvastatin (LIPITOR) 10 mg tablet Take 1 tablet by mouth daily at bedtime. For cholesterol. pregabalin (LYRICA) 150 mg capsule Take 1 capsule by mouth twice daily. baclofen (LIORESAL) 10 mg tablet Take 1 tablet by mouth twice daily as needed. allopurinol (ZYLOPRIM) 100 mg tablet Take 1 tablet by mouth once daily. colchicine (MITIGARE) 0.6 mg capsule Take 1 capsule by mouth twice daily. nitroglycerin sublingual (NITROQUICK) 0.4 mg SL tablet Dissolve 1 tablet under the tongue every 5 minutes as needed for Chest Pain (If chest pain no better after 3 tablets, call 911). COMPOUNDED PRESCRIPTION Please perform nocturnal oximetry on 2 liters oxygen nasal cannula. Assoc dx: Severe COPD J44.9. Please fax results to [phone]. albuterol (PROVENTIL) 5 mg/mL nebu Inhale 0.5 mL as instructed one time only for 1 dose. 1 DOSE NOW - BACK OFFICE. PLACE 0.5 ML PER DROPPER AND 2.5 ML OF NORMAL SALINE INTO RESERVOIR. COMPOUNDED PRESCRIPTION Aerosol nebulizer. Dx COPD. Ciclopirox (LOPROX) 8 % solution Apply 1 application to affected area daily at bedtime. ascorbic acid (VITAMIN C) 500 mg tablet Take 2 tablets by mouth once daily. COMPOUNDED PRESCRIPTION Please perform nocturnal oximetry on room air.Diagnosis: HypoxiaPlease fax results to [phone] Cholecalciferol, Vitamin D3, 2,000 unit cap Take 1 tablet by mouth once daily. aspirin 81 mg chewable tablet Take 2 tablets by mouth once daily. therapeutic multivitamin (THERA VITAMIN) tablet Take 1 tablet by mouth daily with breakfast. PHYSICAL EXAMINATION: VITAL SIGNS: BP 138/61 Pulse 80 Wt 138 lb 9.6 oz (62.9kg) Chest: Clear to percussion and auscultation. There is mild expiratory prolongation. There is no wheezing. Trachea is midline. Air entry is equal. Cardiac: Regular rhythm. S1 and S2 are normal. PMI is nondisplaced. There is a soft systolic ejection murmur. Carotids are brisk without bruits. JVP is less than 10 cm. Abdomen: Soft and nontender. There are no pulsatile masses or bruits. No liver enlargement. Bowel sounds are active. Extremities: No edema. Pulses are intact and symmetrical. Recent labs reviewed. Renal function is slightly lower. TSH was normal. Electronically Signed: Ham Lopez MD July 31, 2017 10:59 AM CC: Julita Alberto MD Referring Provider: HAM LOPEZ [[id number]] Allergies As of Date: 07/31/2017 Noted Allergy Reaction NO KNOWN ALLERGIES 01/13/2017 14 - Other: See Comments Date Reviewed: 07/31/2017 Reviewed by: Jocelyn Valladares - Fully Assessed Reason for Visit: Recheck [92] Primary Visit Diagnosis:SVT (supraventricular tachycardia) (HCC) [I47.1] Other Visit Diagnosis:ASHD (arteriosclerotic heart disease) [I25.10] Prescriptions as of 07/31/2017 Sig: HYDROXYCHLOROQUINE 200 MG TAB* TAKE 2 TABLETS BY MOUTH ONCE * METOPROLOL SUCCINATE ER 25 MG* Take 1 tablet by mouth once d* SPIRONOLACTONE 25 MG TABLET Take 0.5 tablets by mouth onc* ALENDRONATE 70 MG TABLET Take 1 tablet by mouth once e* TAMSULOSIN 0.4 MG CAPSULE Take 1 capsule by mouth once * COLCRYS 0.6 MG TABLET Take 0.6 mg by mouth twice da* TRAMADOL 50 MG TABLET Take 50 mg by mouth four time* NICOTINE 14 MG/24 HR DAILY TR* Apply 1 Patch as directed nicol* IPRATROPIUM BROMIDE 0.02 % SO* Use 2.5 mL via nebulizer four* BUDESONIDE 0.5 MG/2 ML SUSPEN* Use 2 mL via nebulizer twice * ALBUTEROL SULFATE 2.5 MG/3 ML* Use 3 mL via nebulizer every * ALBUTEROL SULFATE HFA 90 MCG/* 2 Puffs every 6 hours as need* OMEPRAZOLE 20 MG CAPSULE,YOKO* Take 1 capsule by mouth daily* ATORVASTATIN 10 MG TABLET Take 1 tablet by mouth daily * PREGABALIN 150 MG CAPSULE Take 1 capsule by mouth twice* BACLOFEN 10 MG TABLET Take 1 tablet by mouth twice * ALLOPURINOL 100 MG TABLET Take 1 tablet by mouth once d* COLCHICINE 0.6 MG CAPSULE Take 1 capsule by mouth twice* Patient not taking: Reported on 05/31/2017 NITROGLYCERIN 0.4 MG SUBLINGU* Dissolve 1 tablet under the t* COMPOUNDED PRESCRIPTION Please perform nocturnal oxim* ALBUTEROL SULFATE CONCENTRATE* Inhale 0.5 mL as instructed o* COMPOUNDED PRESCRIPTION Aerosol nebulizer. Dx COPD. CICLOPIROX 8 % TOPICAL SOLUTI* Apply 1 application to affect* ASCORBIC ACID (VITAMIN C) 500* Take 2 tablets by mouth once * COMPOUNDED PRESCRIPTION Please perform nocturnal oxim* CHOLECALCIFEROL (VITAMIN D3) * Take 1 tablet by mouth once d* ASPIRIN 81 MG CHEWABLE TABLET Take 2 tablets by mouth once * THERAPEUTIC MULTIVITAMIN TABL* Take 1 tablet by mouth daily * Problem List As Of Date 07/31/2017 Noted Resolved COPD (chronic obstructive pulmonary disease) [J*INVALID FOR* Priority: B More... Essential hypertension [I10] INVALID FOR* Priority: C More... Chronic atrial fibrillation (HCC) [I48.2] INVALID FOR*06/15/2016 Priority: A More... Hyperlipidemia [E78.5] INVALID FOR* Priority: E More... Degenerative disc disease [WIN8696] INVALID FOR* Lumbar disc disease [M51.9] INVALID FOR* Spinal stenosis [M48.00] INVALID FOR* Priority: K More... 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 CAD (coronary artery disease), [place] coronary *INVALID FOR* Priority: A More... Bronchitis [J40] INVALID FOR* Priority: B More... Preop testing [Z01.818] INVALID FOR*01/17/2014 More... More... Mechanically assisted ventilation (HCC) [Z99.11]INVALID FOR*01/18/2014 Priority: B More... Hypotension [I95.9] INVALID FOR*01/24/2014 Priority: C More... Pain [R52] INVALID FOR* Priority: D More... Leukocytosis [D72.829] INVALID FOR* Priority: I More... Hyponatremia [E87.1] INVALID FOR* Priority: F More... 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.1] INVALID FOR* GERD (gastroesophageal reflux disease) [K21.9] INVALID FOR* Osteopenia [M85.80] INVALID FOR* Lumbar stenosis with neurogenic claudication [M*INVALID FOR* Facet arthropathy, lumbar [M46.96] INVALID FOR* Low back pain [M54.5] INVALID FOR*01/29/2015 Cancer of skin, squamous cell [C44.92] INVALID FOR* Osteoporosis [M81.0] INVALID FOR* Spinal stenosis of lumbar region with radiculop*INVALID FOR*01/29/2015 Bilateral low back pain without sciatica [M54.5]INVALID FOR*10/21/2015 Adjustment disorder with mixed anxiety and depr*INVALID FOR* Chronic bilateral low back pain without sciatic*INVALID FOR*10/22/2015 Decreased pulses in feet [R09.89] INVALID FOR* Dehydration [E86.0] INVALID FOR* More... Abnormal echocardiogram [R93.1] INVALID FOR* PVC's (premature ventricular contractions) [I49*INVALID FOR* SVT (supraventricular tachycardia) (HCC) [I47.1]INVALID FOR* Other instructions from your clinician: LIFESTYLE CHANGE A healthy lifestyle is the most important component of your overall treatment plan. Please give serious thought to the following areas and commit to making long term care pharmacist changes. EAT A WHOLE FOOD, PLANT BASED DIET The nutrition your body gets is more important than the medicine you take. What matters most is the overall way you eat. We encourage you to minimize the use of animal products (which include dairy and all meats except fatty fish) and use whole, unprocessed plant foods to provide your protein, vitamins and other nutrients. We have a lot of information to share with you on this topic. We also hold Shared Medical Appointments, where you can come visit with Dr. Lopez in the company of other patients and spend over an hour talking about the challenges of changing the way you eat. This is not a diet. It is a way of life that you will keep with you. EXERCISE REGULARLY It is not important to spend hours in the gym, lifting weights and perspiring heavily. A total of 2-3 hours per week of aerobic (causing you to be moderately short of breath) exercise is sufficient to improve your health. Talk to us before you begin a new exercise program, if you have heart disease or experience shortness of breath or chest pain. REDUCE STRESS Chronic emotional and physical stress leads to disease. Ways of reducing stress include meditation, visualization, prayer, yoga and other forms of relaxation therapy. Consistency is the gerard. Find a technique that works for you and do it every day. CULTIVATE RELATIONSHIPS Loneliness and isolation have a major negative impact on health. Seek out others who can love, care for and nurture you. Avoid hurtful relationships. MAINTAIN IDEAL BODY WEIGHT The best way to do this is to do all the things above. Our bodies naturally find the right weight if we keep moving and feed ourselves the right food. If your BMI is greater than 25, we strongly recommend a referral to a weight management program. Please speak to us or your family physician about available programs. AVOID NICOTINE IN ALL FORMS This includes all tobacco products, whether chewed, smoked, vaped, or rubbed on the skin. Smoking cessation programs, which can make use of tobacco substitutes, medications to suppress cravings and behavior management, are available. Please contact your family physician about programs in your area. Encounter Status:Closed by HAM LOPEZ MD on 08/01/17 12 LEAD ELECTROCARDIOGRAM Observed: 07/17/2017 Status: F Source: [place] 3:[address] [facility] Cardiovascular Services [address] [place] [address] 12 Lead EKG 07/15/17 1131 MR#: [id number] Acct: [id number] Name: KAMILLA DICKSON Rep #: [id number] : 1950 66 From: Jose E Owusu MD Attending Dr: Status: DEP ER Ordering Dr: Brendan Walker MD Date: 07/15/17 Location: ED Sex: M C Admitted: Test Reason : COUGH Blood Pressure : / mmHG Vent. Rate : 084 BPM Atrial Rate : 084 BPM P-R Int : 104 ms QRS Dur : 090 ms QT Int : 382 ms P-R-T Axes : 083 -37 -44 degrees QTc Int : 451 ms Sinus rhythm with short SD Left axis deviation Septal infarct , age undetermined Abnormal ECG Confirmed by JOSE E OWUSU MD ([id number]), graphics editor ASIF PITT ([id number]) on 07/17/2017 3:03:34 PM Referred By: Confirmed By:JOSE E OWUSU MD 07/17/17 1503 Date Jose E Owusu MD CC: MD Aurelia Walker; Neto Alberto MD Signed EMERGENCY DEPARTMENT Observed: 07/15/2017 Status: F Source: [place] SUMMARY 4:[address] [facility] Medical Records Department [address] [place] [address] Emergency Department Summary 07/15/17 1201 MR#: [id number] Acct: [id number] Name: KAMILLA DICKSON Rep #: [id number] : 1950 66 From: Brendan Walker MD PCP: Neto Alberto MD Status: DEP ER - ER Visit Summary Date of Service: 07/15/17 Chief Complaint: [] Cough for 2 weeks COPD History of Present Illness: The patient is a 66 M [] COPD long-standing on home O2 2 L, CABG, he reports his been coughing for 2 weeks dry nonproductive he came in to be evaluated for that otherwise his health has been stable he has had no chest pain no fevers he is eating drinking well he is not gaining weight no leg edema no history of DVT or PE he has all of his meds including his inhalers at home he indicates when he coughs for this long he is usually treated with steroids and azithromycin he sees Dr. olbrecht of pulmonary Physical Examination: [] No distress he is playing poker on his iPhone his nose is clear he has diffuse rhonchi that he states is normal for him his heart tones are normal the abdomen soft nontender upper lower extremity unremarkable neurologically he is awake alert he has a dry cough is nonproductive Test Results: [] Emergency Department Course and Treatment: [] Labs are obtained EKG shows a sinus rhythm nothing acute the studies are generally unremarkable see those reports indicates usually treated with steroids antibiotics we will start Kenalog 40 mg IM azithromycin Z-Isacc he will follow-up with his doctors take all his meds and return for change in symptoms he is feeling better wants to go home and he will follow-up Treatment Plan: [] Disposition: [] Home stable Impression: [] Acute exacerbation of COPD This note was generated with [employer] dictation software. It may contain incorrect words, spelling, and punctuation that were not noted in review of the chart prior to signing ED Disposition - Plan for ED Patient: Chief Complaint: Cough Referrals: Neto Alberto MD [Primary Care Provider] - What to do if you have Problems For any increased pain, shortness of breath, bleeding, nausea or vomiting, chest pain, or any unexpected problems, contact your Primary Care Provider. Call [facility] ([phone]) or report to the closest Emergency Room. Call 911 if necessary. 07/15/17 1602 <Electronically signed by Brendan Walker MD> Date Brendan Walker MD Cosigner Signature (If Indicated): Date CC: Neto Alberto MD DISCHARGE INSTRUCTION Observed: 07/15/2017 Status: F Source: [place] 12:[address] 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 Call [facility] ([phone]) or report to the closest Emergency Room. Call 911 if necessary. 07/15/17 1205 <Electronically signed by Brendan Walker MD> Date Brendan Walker MD Cosigner Signature (If Indicated): Date CC: Neto Alberto MD DISCHARGE INSTRUCTION Observed: 07/15/2017 Status: F Source: [place] 12:[address] 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 Call [facility] ([phone]) or report to the closest Emergency Room. Call 911 if necessary. 07/15/17 1204 <Electronically signed by Brendan Walker MD> Date Brendan Walker MD Cosigner Signature (If Indicated): Date CC: Neto Alberto MD CBC W/DIFF, AUTOMATED Collected: 07/15/2017 Status: F Source: [place] 11:[address] [facility] TYPE CODE TESTS RESULT OUT OF RANGE REFERENCE UNITS LAB L100.1000 4.4-11.0 K/mm3 Normal WBC 7.3 LAB L100.1200 4.6-6.2 M/mm3 Normal RBC 4.68 LAB L100.1300 13.0-16.5 g/dl Normal HGB 14.1 LAB L100.1400 40-54 % Normal HCT 43.1 LAB L100.1500 80-94 fL Normal MCV 92.1 LAB L100.1600 27.0-32.0 pg Normal MCH 30.1 LAB L100.1700 32-36 g/gl Normal MCHC 32.7 LAB L100.1810 11.6-14.6 % Normal RDW CV 14.0 LAB L100.1820 35.1-43.9 fl High RDW SD 46.8 LAB L100.1900 150-450 K/mm3 Normal PLT 236 LAB L100.2000 6.2-12.0 fl Normal MPV 10.1 LAB L100.2100 47-70 % Normal NEUT% 64.6 LAB L100.2200 19-41 % Normal LY% 19.6 LAB L100.2300 0-10 % Normal MONO% 10.0 LAB L100.2400 0-5 % High EO% 5.2 LAB L100.2500 0-1 % Normal BASO% 0.5 LAB L100.2550 0.0-0.9 % Normal IM GRAN % 0.100 Result Comment: IG% - Immature Granulocytes (promyelocytes, myelocytes and metamyelocytes) > 1% indicates that a LEFT SHIFT is Present. LAB L100.2620 2.0-7.7 X10 3/uL Normal Absolute Neut 4.7 LAB L100.2720 0.83-4.51 X10 3/ul Normal Absolute Lymph 1.43 Performed By: #### L100.0100 #### [facility] [address] [place], [address] BASIC METABOLIC Collected: 07/15/2017 Status: F Source: [place] PROFILE (BMP) 11:[address] [facility] Order Comment: 'TROP' Serial specimen #1, #2, #3, or #4: 1 TYPE CODE TESTS RESULT OUT OF RANGE REFERENCE UNITS LAB L501.0100 74-106 mg/dL Normal GLU 87 Result Comment: Please note revised GLUCOSE reference range effective 2017. LAB L501.1000 7-18 mg/dL Normal BUN 15 LAB L501.1100 0.70-1.30 mg/dL Normal CREAT,SERUM 1.08 Result Comment: The validity of the calculated GFR AND GFRAA in patients over 70 years has not been determined. Clinical correlation is essential. LAB L501.1110 >60 mL/min Normal EST GFR 72 Result Comment: Non- GFR Calc LAB L501.1115 >60 mL/min Normal EST GFR - AA 87 Result Comment: GFR Calc LAB L501.1255 ml/min Normal Estimated CRCL 50.56 LAB L501.1300 10-20 RATIO Normal BUN/CRE 13.9 LAB L501.2200 8.5-10 mg/dL Normal .1 CA 8.8 LAB L501.5300 136-14 mmol/L Normal 5 NA 139 LAB L501.5600 3.5-5. mmol/L Normal 1 K 4.6 LAB L501.5900 98-107 mmol/L Normal CL 105 LAB L501.6100 21.0-3 mmol/L Normal 2.0 CO2 26.0 LAB L501.6200 5-15 Normal GAP 8 Performed By: #### L500.2500, L501.4010 #### [facility] [address] [place], [address] TROPONIN-I Collected: 07/15/2017 Status: F Source: [place] 11:[address] [facility] Order Comment: 'TROP' Serial specimen #1, #2, #3, or #4: 1 TYPE CODE TESTS RESULT OUT OF RANGE REFERENCE UNITS LAB L501.4010 <0.06 ng/mL Normal < 0.02 TROPONIN-I Result Comment: TROPONIN-I EXPECTED VALUES <0.05 NEGATIVE 0.06 - 0.59 AT RISK OF W[place] > OR = 0.60 SUGGEST W[place] Performed By: #### L500.2500, L501.4010 #### [facility] [address] [place], [address] BNP,B-TYPE NATRIURETIC Collected: 07/15/2017 Status: F Source: [place] PEPTIDE 11:[address] [facility] TYPE CODE TESTS RESULT OUT OF RANGE REFERENCE UNITS LAB L503.6620 0-100 pg/mL Normal B-TYPE 39.8 GLORIA PEP Performed By: #### L503.6620 #### [facility] [address] [place], [address] CHEST 1 VIEW Observed: 07/15/2017 Status: F Source: [place] (PORTABLE) 11:[address] [facility] Imaging Services [address] [place] [address] Chest 1 View (Portable) MR#: [id number] Acct: [id number] Name: KAMILLA DICKSON Akil Rep #: [id number] : 1950 M 66 From: Jyothi Pitt MD PCP: Neto Alberto MD Status: REG ER Study: Chest 1 View (Portable) Date of Exam: 07/15/17 Exam# [id number] Ordering Dr: Brendan Walker MD STUDY: X-RAY CHEST REASON FOR EXAM: Male, 66 years old. Shortness of breath and dyspnea. TECHNIQUE: Single AP portable view of the chest. COMPARISON: June 16, 2016. FINDINGS: Cardiac monitoring leads are present. Patient has had a sternotomy. The lungs are hyperexpanded. There is eventration of the hemidiaphragms. There is mild prominence of bronchovascular markings. There is no demonstrated pleural abnormality. Normal size heart. There are calcified mediastinal lymph nodes. There is prominence of the pulmonary hilar arteries without peripheral pulmonary vascular congestion. There is atherosclerotic calcification of the aortic arch with tortuosity. There is demineralization of the osseous structures. There are degenerative changes of the right acromioclavicular joint. There is no demonstrated abnormality of the visualized soft tissue structures of the upper abdomen. RAD/Chest 1 View (Portable) IMPRESSION: No radiographic evidence of acute cardiopulmonary disease. Electronically Signed: Jyothi Pitt MD at 12:21 EST , Service support , CC: MD Aurelia Walker; Neto Alberto MD Suspension Cord Tier: Signed BASIC METABOLIC PANL Collected: 06/05/2017 Status: F Source: [facility] [place] 9:00 AM [facility] REPOSITORY TYPE CODE TESTS RESULT OUT OF REFERENCE UNITS RANGE LAB GLU 74-99 mg/dL Glucose 78 Result Comment: The [place] Diabetes Association (ADA) provides guidance for cutoff values for fasting glucose and random glucose. The ADA defines fasting as no caloric intake for at least 8 hours. Fas ting plasma glucose results between 100 to 125 mg/dL indicate increased risk for diabetes (prediabetes). Fasting plasma glucose results greater than or equal to 126 mg/dL meet the criteria for diagnosis of diabetes. In the absence of unequivocal hyperglycemia, results should be confirmed by repeat testing. In a patient with classic symptoms of hyperglycemia or hyperglycemic crisis, random plasma glucose results greater than or equal to 200 mg/dL meet the criteria for diagnosis of diabetes. Reference: Standards of Medical Care in Diabetes 2016, [place] Diabetes Association. Diabetes Care. 2016.39(Suppl 1). LAB BUN 9-24 mg/dL BUN 23 LAB CRET 0.73-1.22 mg/dL Creatinine High 1.27 LAB NA 136-144 mmol/L Sodium 139 LAB K 3.7-5.1 mmol/L Potassium 4.7 LAB CL 97-105 mmol/L Chloride 100 LAB CO2 22-30 mmol/L CO2 28 LAB AGAP 9-18 mmol/L Anion Gap 11 LAB CA 8.5-10.2 mg/dL Calcium, Total 9.9 LAB GFRAA eGFR- Amer. >60 LAB GFRNAA . eGFR-All Other Races 56 Result Comment: eGFR (Estimated GFR) Units of measure: mL/min/1.73 meters squared eGFR is derived from the reexpressed MDRD Study equation using the following parameters: serum creatinine, age, gender and race. The creatinine assay has been calibrated to be traceable to IDMS. An eGFR <60 mL/min/1.73m2 for >3 months is consistent with chronic kidney disease. Refer to KDOQI guidelines for clinical interpretation. In patients with unstable renal function, e.g. those with acute kidney injury, the eGFR may not accurately reflect actual GFR. Performed By: #### BMP #### [facility] [address] [address] ALLERGIES ALLERGIES DATE TYPE / CODE NAME / CODE REACTION SEVERITY SOURCE 05/29/2018 Drug No Known Unknown [facility] Allergy/416 Allergies/N05971 [facility] 468331(SNOM 0388(RXNORM) Repository ED CT) 01/13/2017 Drug NO KNOWN OTHER: SEE C [facility] Class/42133 ALLERGIES [facility] 1003(SNOMED Repository CT) NG/[id number] NO KNOWN [facility] 6(SNOMED ALLERGIES Health System CT) Repository ENCOUNTERS ENCOUNTERS ADMIT/DISCHARGE ACCOUNT NUMBER ADMITTING ENCOUNTER LOCATION SOURCE CLASS 05/31/2018 [id number] Balbir Inpatient Jonatan Romero Encounter [facility] ding:RURoom: Repository [id number]: 1 05/31/2018 [id number] Balbir Ambulatory BMSBuilding: Jonatan Romero BMS.[facility] Repository 05/29/2018/05/31/19 [id number] Elmer Barrera Inpatient Jonatan Jonatan [address] [place] [address] ding:PCURoom Repository : [id number]: 1 05/29/2018 [id number] Elmer Barrera Ambulatory BMSBuilding: [place] BMS.[facility] Repository 05/29/2018 [id number] Elmer Barrera Ambulatory BMSBuilding: Jonatan BMS.[facility] Repository 05/29/2018 [id number] Elmer Barrera Ambulatory BMSBuilding: [place] BMS.[facility] Repository 05/17/2018/05/18/19 [id number] Ambulatory [address] [facility] Repository 05/17/2018/05/18/19 [id number] Ambulatory [address] [facility] Repository 05/17/2018/05/21/19 [id number] Ambulatory [address] [facility] Repository 04/23/2018/05/18/19 [id number] Ambulatory [address] [facility] Repository 04/17/2018/04/17/20 [id number] Ambulatory [address] [facility] Repository 04/17/2018/04/17/20 [id number] Ambulatory [address] [facility] Repository 04/02/2018 [id number] Ambulatory [facility] MEDICAL Repository CENTERBuildi ng:CAGWS 01/24/2018/01/25/20 [id number] Ambulatory [address] [facility] Repository 01/19/2018/01/24/20 [id number] Ambulatory [address] [facility] Repository 01/15/2018/01/16/20 [id number] Ambulatory [address] ding:EN Repository 01/01/2018/01/03/20 [id number] Ambulatory [address] [facility] Repository 12/21/2017/12/26/19 [id number] Ambulatory [address] Repository 12/16/2017/12/18/19 [id number] Agfátima, Ambulatory Jonatan [address] ding:PCURoom Repository : [id number]: 1 12/16/2017 [id number] Agfátima, Ambulatory BMSBuilding: Jonatan Vinayak BMS.[facility] Repository 12/16/2017 [id number] Agyepong, Ambulatory BMSBuilding: Jonatan Licea BMS.[facility] Repository 12/11/2017/12/16/19 [id number] Ambulatory [address] [facility] Repository 10/16/2017/11/01/19 [id number] Ambulatory [address] [facility] Repository 09/28/2017/10/04/19 [id number] Ambulatory [address] [facility] Repository 09/19/2017/09/20/19 [id number] Ambulatory [address] [facility] Repository 09/19/2017/09/20/19 [id number] Ambulatory [address] [facility] Repository 09/12/2017/09/13/19 [id number] Ambulatory [address] [facility] Repository 07/31/2017/08/01/19 [id number] Ambulatory [address] [facility] Repository 07/31/2017/08/01/19 [id number] Ambulatory [address] MEDICAL Repository CENTERBuildi ng:CAGWS 07/15/2017/07/16/19 [id number] Emergency [address] ding:ED Repository 06/05/2017/06/05/19 [id number] Ambulatory [address] [facility] Repository PAYERS PAYERS ENCOUNTER GUARANTOR PAYER SUBSCRIBER SOURCE 05/31/2018 KAMILLA RANKIN3 Primary KAMILLA ELIZONDOB: [place] [address] Insurance:ANTHEM [id number] [place] [facility] [address]Cfc: (708) ADVANTAPolicy Number: Repository [phone] ([facility] [id number] Date:[id number] [address]HZ: 05/31/2018 Secondary KAMILLA ELIZONDOB: [place] Insurance:[place] [id number] [facility] Number: [facility] [id number] Repository Date:2018-05-31 05/31/2018 Tertiary NOT GIVENUNK [place] Insurance:SELF PAY [facility] Number: Effective Repository Date:2018-05-31 05/31/2018 KAMILLA RANKIN3 Primary KAMILLA DICKSONDOB: [place] [address] Insurance:ANTHEM [id number] [place] [facility] [facility] [address]Bgj: (330) ADVANTAPolicy Number: Repository [phone] () [id number] Date:7895-48-00XU [address] [place] [address] 74[address]FG: 05/31/2018 Secondary KAMILLA D WALLDOB: [place] Insurance:[place] [id number] Community icy Number: Hospital [id number] Repository Date:2018-05-31 05/31/2018 Tertiary NOT GIVENUNK [place] Insurance:SELF PAY [facility] Number: Effective Repository Date:2018-05-31 05/29/2018 KAMILLA DICKSON563 Primary KAMILLA D WALLDOB: [place] [address] Insurance:ANTHEM [id number] [place] [facility] [facility] [address]Jsn: (330) ADVANTAPolicy Number: Repository [phone] () [id number] Date:5900-16-45QH [address] [place] [address] 80147YQ: 05/29/2018 Secondary KAMILLA D WALLDOB: [place] Insurance:[place] [id number] [facility] icy Number: Hospital [id number] Repository Date:2018-05-29 05/29/2018 Tertiary NOT GIVENUNK [place] Insurance:SELF PAY [facility] Number: Effective Repository Date:2018-05-29 05/29/2018 KAMILLA DICKSON563 Primary KAMILLA D WALLDOB: [place] [address] Insurance:ANTHEM [id number] [place] [facility] [address]Tyh: (330) ADVANTAPolicy Number: Repository [phone] () [id number] Date:1917-60-49VP [id number] [place] [address]VW: 05/29/2018 Secondary KAMILLA D WALLDOB: [place] Insurance:[place] [id number] Community icy Number: Hospital [id number] Repository Date:2018-05-29 05/29/2018 Tertiary NOT GIVENUNK [place] Insurance:SELF PAY [facility]: Effective Repository Date:2018-05-29 05/29/2018 KAMILLA RANKIN3 Primary KAMILLA DICKSONDOB: [place] [address] Insurance:ANTHEM [id number] [place] [facility] [facility] [id number]: (330) ADVANTAPolicy Number: Repository [phone] () [id number] Date:0432-89-96OX [address] [place] [address] 94[address]BH: 05/29/2018 Secondary KAMILLA DICKSONDOB: [place] Insurance:[place] [id number] Community icy Number: Hospital [id number] Repository Date:2018-05-29 05/29/2018 Tertiary NOT GIVENUNK [place] Insurance:SELF PAY [facility] Number: Effective Repository Date:2018-05-29 05/29/2018 KAMILLA RANKIN3 Primary KAMILLA ELIZONDOB: [place] [address] Insurance:ANTHEM [id number] [place] [facility] [address]Cux: (330) ADVANTAPolicy Number: Repository [phone] () [id number] Date:3188-35-57UG [address] [place] [address] 22589FC: 05/29/2018 Secondary KAMILLA ELIZONDOB: [place] Insurance:MEDICA[place] [id number] [facility] icy Number: Hospital [id number] Repository Date:2018-05-29 05/29/2018 Tertiary NOT GIVENUNK [place] Insurance:SELF PAY Community [facility] Number: Effective Repository Date:2018-05-29 04/02/2018 KAMILLA ELIZONDOB: Primary KAMILLA ELIZONDOB: [facility] [id number] Insurance:ANTHEM [id number] [facility] [address] MEDIBLUE Repository [address] [place], [place] [address] [address]Xew: (330) Number: [phone] () [id number] Date: 01/15/2018 KAMILLA RANKIN3 Primary KAMILLA DICKSONDOB: [place] [address] Insurance:ANTHEM [id number] [place] [facility] [facility] [address]Mnl: (330) ADVANTAPolicy Number: Repository [phone] () [id number] Date:9471-84-05GP [id number] [place] [address] 00832WA: 01/15/2018 Secondary NOT GIVENUNK [place] Insurance:SELF PAY [facility] Number: Effective Repository Date:2017-12-21 12/16/2017 KAMILLA RANKIN3 Primary KAMILLA DICKSONDOB: [place] [address] Insurance:ANTHEM [id number] [place] [facility] [address]Tel: (330) ADVANTAPolicy Number: Repository [phone] () [id number] Date:3974-98-84FX [address] [place] [address]70[address]FX: 12/16/2017 Secondary NOT GIVENUNK [place] Insurance:SELF PAY [facility] Number: Effective Repository Date:2017-12-16 12/16/2017 KAMILLA RANKIN3 Primary KAMILLA DICKSONDOB: [place] [address] Insurance:ANTHEM [id number] [place] [facility] [facility] [address]Wdv: (330) ADVANTAPolicy Number: Repository [phone] () [id number] Date:0490-78-55MG [address] [place] [address] 73746YS: 12/16/2017 Secondary NOT GIVENUNK [place] Insurance:SELF PAY [facility] Hospital Number: Effective Repository Date:2017-12-16 12/16/2017 KAMILLA DICKSON563 Primary KAMILLA DICKSONDOB: [place] [address] Insurance:ANTHEM [id number] [place] [facility] [facility] [address]Qsv: (330) ADVANTAPolicy Number: Repository [phone] () [id number] Date:0784-64-08LR [address] [place] [address] 94[address]ME: 12/16/2017 Secondary NOT GIVENUNK [place] Insurance:SELF PAY [facility] Effective Repository Date:2017-12-16 07/31/2017 KAMILLA ELIZONDOB: Primary KAMILLA ELIZONDOB: [facility] [id number] Insurance:[facility] [id number] [facility] MEDIBLUE Repository [address] [place], [place] [address] [address]Bup: (330) Number: [phone] () [id number] Date: 07/15/2017 KAMILLA DICKSON563 Primary KAMILLA DICKSONB: [facility] Insurance:[facility] [id number] [place] [address] [facility] [address]Kee: ADVANTAPolicy Number: Repository [phone] [id number] () Date:2674-69-47MM [place] [address], [place] [address]KX: 07/15/2017 Secondary NOT GIVENUNK [place] Insurance:SELF PAY [facility] Number: Effective Repository Date:2017-07-15
== END 2018-05-31 16:32 | DRG 65 ==
LOC: ED 08:07 → PCU 08:31
PROVIDERS: Nurse Practitioner Family; Emergency Provider Emergency Medicine; Family Provider Family Medicine; PCP Family Medicine
DX: I63.511 Cerebral infarction due to unspecified occlusion or stenosis of right middle cerebral artery (principal); G81.94 Hemiplegia, unspecified affecting left nondominant side; J96.11 Chronic respiratory failure with hypoxia; J44.9 Chronic obstructive pulmonary disease, unspecified; R29.704 NIHSS score 4; R47.81 Slurred speech; R29.810 Facial weakness; I48.0 Paroxysmal atrial fibrillation; E78.5 Hyperlipidemia, unspecified; M81.0 Age-related osteoporosis without current pathological fracture; N40.0 Benign prostatic hyperplasia without lower urinary tract symptoms; M10.9 Gout, unspecified; Z99.81 Dependence on supplemental oxygen; F17.210 Nicotine dependence, cigarettes, uncomplicated; I65.23 Occlusion and stenosis of bilateral carotid arteries; I25.10 Atherosclerotic heart disease of native coronary artery without angina pectoris; I12.9 Hypertensive chronic kidney disease with stage 1 through stage 4 chronic kidney disease, or unspecified chronic kidney disease; N18.3 Chronic kidney disease, stage 3 (moderate); Z79.899 Other long term (current) drug therapy; Z95.1 Presence of aortocoronary bypass graft; Z79.83 Long term (current) use of bisphosphonates; Z79.01 Long term (current) use of anticoagulants
CPT/HCPCS: 36415; 70450; 70496; 70498; 70544; 70547; 70551; 71045; 80048; 80061; 82962; 84484; 85025; 85610; 85730; 92523; 92526; 93005; 93306; 94640; 97162; 97166; 97530; 99285; 99406; J7030; Q9957; Q9967; A4216; C8929

== ENCOUNTER 2018-05-31 16:47 | Inpatient (IN) | payer MEDICARE, MEDICAID, SELFPAY ==
[2018-05-30 20:24] VITALS: BMI 26.0
[2018-05-31 17:54] VITALS: BP 118/60; PULSE 95; RESP 18; TEMP 36.6; O2SAT 92; BMI 25.4; BMI 25.5
[2018-05-31 20:09] VITALS: BP 104/55; PULSE 89; RESP 16; TEMP 36.4; O2SAT 95
[2018-05-31] MEDS: Atorvastatin Calcium 80 MG Tablet PO (21:26)
[2018-05-31] MEDS: Pregabalin 75 MG Capsule 150 MG PO (21:26)
[2018-06-01] VITALS (8 sets, daily range): BP systolic 103–137; BP diastolic 59–68; PULSE 88–101; RESP 16–20; TEMP 36.7–36.8; O2SAT 87–95; BMI 25.4
[2018-06-01 06:22] LABS: Absolute Lymphocyte Count 1.87 X10^3/ul (0.83-4.51); Absolute Neutrophil Count 6.1 X10^3/uL (2.0-7.7); Basophil# 0.06 X10^3/uL; Basophil% 0.6 % (0-1); Eosinophil# 0.58 X10^3/uL; Eosinophils% 5.7 % (0-5); Hemoglobin 13.6 g/dl (13.0-16.5); Lymphocyte # 1.87 X10^3/ul (4.0); Lymphocyte % 18.5 % (19-41); Mean Corp Hgb Conc 33.2 g/gl (32-36); Mean Corpuscular Hgb 30.6 pg (27.0-32.0); Mean Corpuscular Volume 92.3 fL (80-94); Mean Platelet Vol. 11.1 fl (6.2-12.0); Monocyte# 1.48 X10^3/uL; Monocyte% 14.7 % (0-10); Neutrophil # 6.08 X10^3/uL (2.7-7.7); Neutrophil % 60.3 % (47-70); Platelet Count 234 K/mm3 (150-450); RBC Distribution Width CV 13.5 % (11.6-14.6); RBC Distribution Width SD 44.6 fl (35.1-43.9); Red Blood Count 4.44 M/mm3 (4.6-6.2); White Blood Count 10.1 K/mm3 (4.4-11.0)
[2018-06-01 06:25] LABS: ALB/GLOB Ratio 0.8 RATIO (0.9-2.4); AST(SGOT) 24 U/L (15-37); Alanine Aminotransfer ALT/SGPT 27 U/L (16-61); Albumin, Serum 3.2 g/dL (3.2-5.0); Alkaline Phosphatase 100 U/L (45-117); Anion Gap 8 (5-15); BUN 14 mg/dL (7-18); BUN/Creat Ratio 16.8 RATIO (10-20); Calcium,Total 8.9 mg/dL (8.5-10.1); Chloride 108 mmol/L (98-107); Creatinine, Serum 0.83 mg/dL (0.70-1.30); EST Glomerular Filtration Rate 97 mL/min (>60); Est Glom Filt Rate - Afr Amer 118 mL/min (>60); Globulin 3.8 g/dL (2.2-4.2); Glucose 94 mg/dL (74-106); Potassium 3.7 mmol/L (3.5-5.1); Sodium Level 144 mmol/L (136-145)
[2018-06-01 06:34] LABS: POSITIVE COUNT NO; POSITIVE DIFFERENTIAL NO; POSITIVE MORPHOLOGY NO
[2018-06-01] MEDS: Albuterol 2.5 MG/3 ML VIAL.NEB. INHALATION (06:35)
[2018-06-01] MEDS: Budesonide Respules 0.5 MG/2 ML AMPUL.NEB. 0.25 MG INHALATION (07:32)
[2018-06-01] MEDS: Ipratropium 0.5 MG/2.5 ML SOLUTION 0.25 MG INHALATION (07:32)
[2018-06-01] MEDS: Spironolactone 25 MG Tablet 12.5 MG PO (07:56)
[2018-06-01] MEDS: Aspirin 81 MG TAB.CHEW 162 MG PO (07:56)
[2018-06-01] MEDS: Tamsulosin HCl 0.4 MG Capsule PO (07:56)
[2018-06-01] MEDS: Allopurinol 100 MG Tablet PO (07:58)
[2018-06-01] MEDS: Baclofen 10 MG Tablet PO ×2 (08:00→20:16)
[2018-06-01] MEDS: traMADol 50 MG Tablet PO (08:00)
[2018-06-01] MEDS: Ascorbic Acid 500 MG Tablet 1000 MG PO (08:47)
[2018-06-01] MEDS: Pantoprazole Sodium 20 MG Tablet PO (08:47)
[2018-06-01] MEDS: Clopidogrel Bisulfate 75 MG Tablet PO (08:47)
[2018-06-01] MEDS: Metoprolol(XL)Succ 25 MG Tablet PO (08:47)
[2018-06-01] MEDS: Pregabalin 75 MG Capsule 150 MG PO ×2 (08:47→19:56)
[2018-06-01] MEDS: Enoxaparin 40 MG/0.4 ML Syringe SC (08:52)
--- NOTE | 2018-06-01 10:49 | CASEMGMT ---
Reviewed and approved attached [employer] student documentation. VIVIENNE Heredia
[2018-06-01] MEDS: Ipratropium/Albuterol Sulfate 3 ML AMPUL.NEB INHALATION ×3 (11:19→19:30)
--- NOTE | 2018-06-01 11:32 | PCM.HP.STD ---
History of Present Illness Date of Admission: 06/01/18 Chief Complaint: Left-sided weakness, debility Mr. Bright is a 67-year-old right-handed male who is admitted to the rehab unit after hospitalization for stroke. Approximately 4 days ago he fell out of bed and noted left-sided weakness. He lives in a trailer with his sister, his sister called the squad he came to the hospital and was diagnosed with a right MCA distribution infarct. He has a past medical history of atrial fibrillation however apparently he has not had any atrial fibrillation recently and his telemetry monitoring while in the PCU was sinus. He was previously on Coumadin but this was discontinued remotely and he was on aspirin daily. He does smoke but he does not drink alcohol or snore. Now admitted to the rehab unit in order to improve his functional status so that he can return home to his previous level of functional independence. Past Medical History Past Medical History (Chronic Problems): Chronic Problems Benign prostatic hypertrophy (Chronic) Hypertension (Chronic) Stage 3 chronic kidney disease (Chronic) Chronic respiratory failure (Chronic) COPD (chronic obstructive pulmonary disease) (Chronic) Paroxysmal atrial fibrillation (Chronic) DDD (degenerative disc disease) (Chronic) CAD (coronary artery disease) (Chronic) Hx of CABG (Chronic) Myoclonic jerking (Chronic) Allergies No Known Allergies Allergy (Verified 05/29/18 07:20) Home Medications: Ambulatory Orders Medication Instructions Recorded Albuterol Aerosols [Ventolin 2.5 mg INHALATION Q4H PRN PRN 07/04/16 Aerosols] Allopurinol 100 mg PO DAILY 07/04/16 Ascorbic Acid [Vitamin C] 1,000 mg PO DAILY 07/04/16 Aspirin [Aspirin, Baby] 162 mg PO DAILY@0800 07/04/16 Budesonide [Pulmicort] 0.5 mg IH BID 07/04/16 Cholecalciferol (Vitamin D3) 2,000 unit PO DAILY 07/04/16 [Vitamin D3] Colchicine 0.6 mg PO BID PRN 07/04/16 Ipratropium [Atrovent Aerosols] 0.25 mg INHALATION 4X/DAY 07/04/16 Nitroglycerin 0.4 mg SL PRN PRN 07/04/16 Omeprazole [Prilosec] 20 mg PO DAILY 07/04/16 Pregabalin [Lyrica] 150 mg PO BID 07/04/16 Spironolactone [Aldactone] 12.5 mg PO DAILY 07/04/16 Tamsulosin HCl [Flomax] 0.4 mg PO DAILY 07/04/16 traMADol [Ultram] 50 mg PO Q4H PRN PRN 07/04/16 Alendronate Sodium [Fosamax] 70 mg PO QWEEK 07/15/17 Baclofen 10 mg PO BID PRN PRN 07/15/17 Metoprolol Succinate 25 mg PO DAILY 05/29/18 Acetaminophen [Tylenol] 500 mg PO Q6H PRN PRN tablet 05/31/18 Albuterol Inhaler [Ventolin Hfa 2 puff INHALATION Q6H PRN PRN 05/31/18 (SP)] Atorvastatin Calcium [Lipitor] 10 mg PO QHS 05/31/18 Clopidogrel Bisulfate [Plavix] 75 mg PO DAILY 05/31/18 Hydroxychloroquine Sulfate 400 mg PO DAILY 06/01/18 [Plaquenil] Ipratropium/Albuterol Respimat 1 puff INHALATION 4X/DAY PRN 06/01/18 [Combivent Respimat Inhal [place]] traMADol [Ultram (G)] 50 mg PO QHS PRN 06/01/18 Surgical History: - Psychiatric History: Depression Smoking Status: Current every day smoker Tobacco Use: Cigarettes - *Family History Maternal History Items: Asthma, - Paternal History Items: - Sibling History Items: No pertinent history Review of Systems Constitutional: Denies: Chills, Fever, Weight Change HEENT: Denies: Head Aches, Sinus Congestion, Sinus Drainage Cardiovascular: Denies: Chest Pain, Palpitations Respiratory: Denies: Cough, Shortness of breath at rest, Sputum production Gastrointestinal: Denies: Abdominal Pain, Nausea, Vomiting Genitourinary: Denies: Dysuria Musculoskeletal: Denies: Joint Pain, Joint Tenderness Skin: Denies: Rash, Wounds Neurological: Denies: Numbness, Tingling, Focal weakness Psychiatric: Denies: Anxiety, Depression, Homicidal Ideations, Suicidal Ideations Hematologic/ Lymphatic: Denies: Easy Bruising, Easy Bleeding VTE Information - Inpt Only VTE Present on Admission: Yes VTE Pharm Prophylaxis ordered?: Yes - Physical Exam General: Alert, Oriented x3, Cooperative, No apparent distress HEENT: Atraumatic, PERRLA, EOMI Neurological: Cranial nerves II-XII grossly intact, Deep Tendon Reflexes 2+/4 and Symmetrical, - - Left-sided weakness mild Psych/Mental Status: Normal Affect, Alert and oriented to time, place, person, mood and affect Vital Signs Temp Pulse Resp BP Pulse Ox 36.7 C 101 H 18 137/68 H 93 06/01/18 08:45 06/01/18 08:47 06/01/18 08:45 06/01/18 08:47 06/01/18 11:19 Oxygen Flow Rate (L/min) 2 Oxygen Delivery Method Room Air Weight: 65.3 kg Body Mass Index (BMI) 25.4 Finger Stick Blood Glucose 96 Intake and Output for Last 24 Hours 05/30/18 05/31/18 06/01/18 23:59 23:59 23:59 Intake Total 240 / 240 Balance 240 / 240 Laboratory Tests Past 24 Hrs 06/01/18 06/01/18 05:30 05:30 WBC 10.1 RBC 4.44 L Hgb 13.6 Hct 41.0 MCV 92.3 MCH 30.6 MCHC 33.2 RDW 13.5 RDW Differential 44.6 H Plt Count 234 MPV 11.1 Immature Gran % (Auto) 0.200 Neut % (Auto) 60.3 Lymph % (Auto) 18.5 L [place] % (Auto) 14.7 H Eos % (Auto) 5.7 H Baso % (Auto) 0.6 Absolute Neuts (auto) 6.1 Absolute Lymphs (auto) 1.87 Total Counted Not Reportable Sodium 144 Potassium 3.7 Chloride 108 H Carbon Dioxide 28.0 Anion Gap 8 BUN 14 Creatinine 0.83 Estim Creat Clear Calc 67.60 Est GFR (MDRD) Af Amer 118 Est GFR (MDRD) Non-Af 97 BUN/Creatinine Ratio 16.8 Glucose 94 Calcium 8.9 Total Bilirubin 0.70 AST 24 ALT 27 Alkaline Phosphatase 100 Total Protein 7.0 Albumin 3.2 Globulin 3.8 Albumin/Globulin Ratio 0.8 L Current Medications Generic Name Dose Route Start Last Admin Trade Name Freq PRN Reason Stop Dose Admin Acetaminophen 500 mg 05/31/18 18:09 Tylenol PO Q6H PRN PRN PAIN Albuterol Sulfate 2.5 mg 06/01/18 08:32 Ventolin Aerosols INHALATION Q2H PRN PRN WHEEZING Albuterol/Ipratropium 3 ml 06/01/18 08:30 Duoneb INHALATION Q4HWA.RT [facility] Alendronate Sodium 70 mg 06/03/18 06:00 Fosamax PO QWEEK [facility] Allopurinol 100 mg 06/01/18 08:00 06/01/18 07:58 Zyloprim PO 100 mg DAILYCM [facility] Administration Ascorbic Acid 1,000 mg 06/01/18 10:00 06/01/18 08:47 Vitamin C PO 1,000 mg DAILY [facility] Administration Aspirin 162 mg 06/01/18 08:00 06/01/18 07:56 Aspirin, Baby PO 162 mg DAILY@0800 [facility] Administration Atorvastatin Calcium 80 mg 05/31/18 22:00 05/31/18 21:26 Lipitor PO 80 mg QHS [facility] Administration Baclofen 10 mg 05/31/18 18:09 06/01/18 08:00 Lioresal PO 10 mg BID PRN PRN Administration PAIN Bisacodyl 10 mg 05/31/18 18:16 Dulcolax RECTAL .PRN X 1 PRN Constipation Budesonide 0.5 mg 06/01/18 08:33 Pulmicort Aerosol INHALATION Q12H.RT [facility] Cholecalciferol 2,000 unit 06/01/18 10:00 06/01/18 08:47 Vitamin D PO 2,000 unit DAILY [facility] Administration Clopidogrel Bisulfate 75 mg 06/01/18 10:00 06/01/18 08:47 Plavix PO 75 mg DAILY [facility] Administration Colchicine 0.6 mg 05/31/18 22:00 Colchicine PO BID PRN GOUT Enoxaparin Sodium 40 mg 06/01/18 10:00 06/01/18 08:52 Lovenox SC 40 mg DAILY [facility] Administration Magnesium Hydroxide 30 ml 05/31/18 18:16 Milk Of Magnesia PO .PRN X 1 PRN Constipation Metoprolol Succinate 25 mg 06/01/18 10:00 06/01/18 08:47 Toprol Xl (Beta Diana) PO 25 mg DAILY [facility] Administration Nitroglycerin 0.4 mg 05/31/18 18:09 Nitrostat SUBLINGUAL PRN PRN CHEST PAIN Pantoprazole Sodium 20 mg 06/01/18 10:00 06/01/18 08:47 Protonix PO 20 mg DAILY [facility] Administration Pregabalin 150 mg 05/31/18 22:00 06/01/18 08:47 Lyrica PO 150 mg BID [facility] Administration Spironolactone 12.5 mg 06/01/18 08:00 06/01/18 07:56 Aldactone PO 12.5 mg DAILYCM [facility] Administration Tamsulosin HCl 0.4 mg 06/01/18 08:30 06/01/18 07:56 Flomax PO 0.4 mg DAILY@0830 [facility] Administration Tramadol HCl 50 mg 05/31/18 18:09 06/01/18 08:00 Ultram PO 50 mg Q4H PRN PRN Administration PAIN Assessment/Plan All Active Problems CVA (cerebral vascular accident) (Acute) Aspiration into airway (Resolved) Sepsis (Ruled-out) Mihir status post right MCA distribution infarct, history of A. fib but he does not appear to have A. fib now. Goal of rehab is rastafarian of prior level of functional independence. Plan: Physical therapy for gait and balance Occupational Therapy for ADLs DVT prophylaxis: Lovenox Protocol PRN analgesics Prophylaxis: Aspirin, Plavix, statin therapy and blood pressure control
--- NOTE | 2018-06-01 11:37 | HP.PCM_ITS ---
History of Present Illness Date of Admission: 06/01/18 Chief Complaint: Left-sided weakness, debility Mr. Bright is a 67-year-old right-handed male who is admitted to the rehab unit after hospitalization for stroke. Approximately 4 days ago he fell out of bed and noted left-sided weakness. He lives in a trailer with his sister, his sister called the squad he came to the hospital and was diagnosed with a right MCA distribution infarct. He has a past medical history of atrial fibrillation however apparently he has not had any atrial fibrillation recently and his telemetry monitoring while in the PCU was sinus. He was previously on Coumadin but this was discontinued remotely and he was on aspirin daily. He does smoke but he does not drink alcohol or snore. Now admitted to the rehab unit in order to improve his functional status so that he can return home to his previous level of functional independence. Past Medical History Past Medical History (Chronic Problems): Chronic Problems Benign prostatic hypertrophy (Chronic) Hypertension (Chronic) Stage 3 chronic kidney disease (Chronic) Chronic respiratory failure (Chronic) COPD (chronic obstructive pulmonary disease) (Chronic) Paroxysmal atrial fibrillation (Chronic) DDD (degenerative disc disease) (Chronic) CAD (coronary artery disease) (Chronic) Hx of CABG (Chronic) Myoclonic jerking (Chronic) Allergies No Known Allergies Allergy (Verified 05/29/18 07:20) Home Medications: Ambulatory Orders Medication Instructions Recorded Albuterol Aerosols [Ventolin 2.5 mg INHALATION Q4H PRN PRN 07/04/16 Aerosols] Allopurinol 100 mg PO DAILY 07/04/16 Ascorbic Acid [Vitamin C] 1,000 mg PO DAILY 07/04/16 Aspirin [Aspirin, Baby] 162 mg PO DAILY@0800 07/04/16 Budesonide [Pulmicort] 0.5 mg IH BID 07/04/16 Cholecalciferol (Vitamin D3) 2,000 unit PO DAILY 07/04/16 [Vitamin D3] Colchicine 0.6 mg PO BID PRN 07/04/16 Ipratropium [Atrovent Aerosols] 0.25 mg INHALATION 4X/DAY 07/04/16 Nitroglycerin 0.4 mg SL PRN PRN 07/04/16 Omeprazole [Prilosec] 20 mg PO DAILY 07/04/16 Pregabalin [Lyrica] 150 mg PO BID 07/04/16 Spironolactone [Aldactone] 12.5 mg PO DAILY 07/04/16 Tamsulosin HCl [Flomax] 0.4 mg PO DAILY 07/04/16 traMADol [Ultram] 50 mg PO Q4H PRN PRN 07/04/16 Alendronate Sodium [Fosamax] 70 mg PO QWEEK 07/15/17 Baclofen 10 mg PO BID PRN PRN 07/15/17 Metoprolol Succinate 25 mg PO DAILY 05/29/18 Acetaminophen [Tylenol] 500 mg PO Q6H PRN PRN tablet 05/31/18 Albuterol Inhaler [Ventolin Hfa 2 puff INHALATION Q6H PRN PRN 05/31/18 (SP)] Atorvastatin Calcium [Lipitor] 10 mg PO QHS 05/31/18 Clopidogrel Bisulfate [Plavix] 75 mg PO DAILY 05/31/18 Hydroxychloroquine Sulfate 400 mg PO DAILY 06/01/18 [Plaquenil] Ipratropium/Albuterol Respimat 1 puff INHALATION 4X/DAY PRN 06/01/18 [Combivent Respimat Inhal [place]] traMADol [Ultram (G)] 50 mg PO QHS PRN 06/01/18 Surgical History: - Psychiatric History: Depression Smoking Status: Current every day smoker Tobacco Use: Cigarettes - *Family History Maternal History Items: Asthma, - Paternal History Items: - Sibling History Items: No pertinent history Review of Systems Constitutional: Denies: Chills, Fever, Weight Change HEENT: Denies: Head Aches, Sinus Congestion, Sinus Drainage Cardiovascular: Denies: Chest Pain, Palpitations Respiratory: Denies: Cough, Shortness of breath at rest, Sputum production Gastrointestinal: Denies: Abdominal Pain, Nausea, Vomiting Genitourinary: Denies: Dysuria Musculoskeletal: Denies: Joint Pain, Joint Tenderness Skin: Denies: Rash, Wounds Neurological: Denies: Numbness, Tingling, Focal weakness Psychiatric: Denies: Anxiety, Depression, Homicidal Ideations, Suicidal Ideations Hematologic/ Lymphatic: Denies: Easy Bruising, Easy Bleeding VTE Information - Inpt Only VTE Present on Admission: Yes VTE Pharm Prophylaxis ordered?: Yes - Physical Exam General: Alert, Oriented x3, Cooperative, No apparent distress HEENT: Atraumatic, PERRLA, EOMI Neurological: Cranial nerves II-XII grossly intact, Deep Tendon Reflexes 2+/4 and Symmetrical, - - Left-sided weakness mild Psych/Mental Status: Normal Affect, Alert and oriented to time, place, person, mood and affect Vital Signs Temp Pulse Resp BP Pulse Ox 36.7 C 101 H 18 137/68 H 93 06/01/18 08:45 06/01/18 08:47 06/01/18 08:45 06/01/18 08:47 06/01/18 11:19 Oxygen Flow Rate (L/min) 2 Oxygen Delivery Method Room Air Weight: 65.3 kg Body Mass Index (BMI) 25.4 Finger Stick Blood Glucose 96 Intake and Output for Last 24 Hours 05/30/18 05/31/18 06/01/18 23:59 23:59 23:59 Intake Total 240 / 240 Balance 240 / 240 Laboratory Tests Past 24 Hrs 06/01/18 06/01/18 05:30 05:30 WBC 10.1 RBC 4.44 L Hgb 13.6 Hct 41.0 MCV 92.3 MCH 30.6 MCHC 33.2 RDW 13.5 RDW Differential 44.6 H Plt Count 234 MPV 11.1 Immature Gran % (Auto) 0.200 Neut % (Auto) 60.3 Lymph % (Auto) 18.5 L [place] % (Auto) 14.7 H Eos % (Auto) 5.7 H Baso % (Auto) 0.6 Absolute Neuts (auto) 6.1 Absolute Lymphs (auto) 1.87 Total Counted Not Reportable Sodium 144 Potassium 3.7 Chloride 108 H Carbon Dioxide 28.0 Anion Gap 8 BUN 14 Creatinine 0.83 Estim Creat Clear Calc 67.60 Est GFR (MDRD) Af Amer 118 Est GFR (MDRD) Non-Af 97 BUN/Creatinine Ratio 16.8 Glucose 94 Calcium 8.9 Total Bilirubin 0.70 AST 24 ALT 27 Alkaline Phosphatase 100 Total Protein 7.0 Albumin 3.2 Globulin 3.8 Albumin/Globulin Ratio 0.8 L Current Medications Generic Name Dose Route Start Last Admin Trade Name Freq PRN Reason Stop Dose Admin Acetaminophen 500 mg 05/31/18 18:09 Tylenol PO Q6H PRN PRN PAIN Albuterol Sulfate 2.5 mg 06/01/18 08:32 Ventolin Aerosols INHALATION Q2H PRN PRN WHEEZING Albuterol/Ipratropium 3 ml 06/01/18 08:30 Duoneb INHALATION Q4HWA.RT [facility] Alendronate Sodium 70 mg 06/03/18 06:00 Fosamax PO QWEEK [facility] Allopurinol 100 mg 06/01/18 08:00 06/01/18 07:58 Zyloprim PO 100 mg DAILYCM [facility] Administration Ascorbic Acid 1,000 mg 06/01/18 10:00 06/01/18 08:47 Vitamin C PO 1,000 mg DAILY [facility] Administration Aspirin 162 mg 06/01/18 08:00 06/01/18 07:56 Aspirin, Baby PO 162 mg DAILY@0800 [facility] Administration Atorvastatin Calcium 80 mg 05/31/18 22:00 05/31/18 21:26 Lipitor PO 80 mg QHS [facility] Administration Baclofen 10 mg 05/31/18 18:09 06/01/18 08:00 Lioresal PO 10 mg BID PRN PRN Administration PAIN Bisacodyl 10 mg 05/31/18 18:16 Dulcolax RECTAL .PRN X 1 PRN Constipation Budesonide 0.5 mg 06/01/18 08:33 Pulmicort Aerosol INHALATION Q12H.RT [facility] Cholecalciferol 2,000 unit 06/01/18 10:00 06/01/18 08:47 Vitamin D PO 2,000 unit DAILY [facility] Administration Clopidogrel Bisulfate 75 mg 06/01/18 10:00 06/01/18 08:47 Plavix PO 75 mg DAILY [facility] Administration Colchicine 0.6 mg 05/31/18 22:00 Colchicine PO BID PRN GOUT Enoxaparin Sodium 40 mg 06/01/18 10:00 06/01/18 08:52 Lovenox SC 40 mg DAILY [facility] Administration Magnesium Hydroxide 30 ml 05/31/18 18:16 Milk Of Magnesia PO .PRN X 1 PRN Constipation Metoprolol Succinate 25 mg 06/01/18 10:00 06/01/18 08:47 Toprol Xl (Beta Diana) PO 25 mg DAILY [facility] Administration Nitroglycerin 0.4 mg 05/31/18 18:09 Nitrostat SUBLINGUAL PRN PRN CHEST PAIN Pantoprazole Sodium 20 mg 06/01/18 10:00 06/01/18 08:47 Protonix PO 20 mg DAILY [facility] Administration Pregabalin 150 mg 05/31/18 22:00 06/01/18 08:47 Lyrica PO 150 mg BID [facility] Administration Spironolactone 12.5 mg 06/01/18 08:00 06/01/18 07:56 Aldactone PO 12.5 mg DAILYCM [facility] Administration Tamsulosin HCl 0.4 mg 06/01/18 08:30 06/01/18 07:56 Flomax PO 0.4 mg DAILY@0830 [facility] Administration Tramadol HCl 50 mg 05/31/18 18:09 06/01/18 08:00 Ultram PO 50 mg Q4H PRN PRN Administration PAIN Assessment/Plan All Active Problems CVA (cerebral vascular accident) (Acute) Aspiration into airway (Resolved) Sepsis (Ruled-out) Mihir status post right MCA distribution infarct, history of A. fib but he does not appear to have A. fib now. Goal of rehab is mandaeism of prior level of functional independence. Plan: Physical therapy for gait and balance Occupational Therapy for ADLs DVT prophylaxis: Lovenox Protocol PRN analgesics Prophylaxis: Aspirin, Plavix, statin therapy and blood pressure control
--- NOTE | 2018-06-01 11:41 | REHABEVAL_ITS ---
Admission Information Status Changes from Prescreening?: No changes Identified Actual Problem List:: Cognitve Impr/Memory Loss, Mobility Impaired, Self Care Deficit, BP, Hypertension, Ineffect.D/C Plan r/t Psy Potential Problem List:: DVT, Bleeding, Infection, UTI, Aspiration, Falls, Skin Integrity, Depression Risk of Complications DVT: LMWH, LUIS M Hose, Sequential Compression Device Bleeding: Monitor Lab Values, Nursing to Teach Precautions for anti-coagulation therapy., Wound, if applicable, to be assessed every shift., Stroke patients assessed for lethargy or change in status. Infection: Clinical Staff to Monitor for S/S of infection:, S/S of infection include fever, redness, warmth, etc. Urinary Tract Infection: Monitor for frequency, burning, discomfort, or incontinence., Nursing will obtain urine sample for urinalysis and C&S when ordered. Aspiration: Clinical staff will monitor for coughing, drooling, congestion., Speech will evaluate swallowing and dsyphasia., Nursing will monitor patient swallowing during meals. Falls: Patient will be evaluated for Fall Precautions, Patient will be placed on Fall Precautions as indicated per protocol. Skin Breakdown: Nursing will assess skin daily using assessment tool., Nursing will place on Skin Breakdown Precautions as indicated. Pain: Clinical staff will assess patient's pain level per protocol., Medications will be given, if needed, and the pain level reassessed., Other methods: Massage, distraction, decrease stimulus, etc. used PRN. Plan of Care Patient requires physician specializing in physical medicine and rehab oversight to provide close medical supervision of rehab issues including: Pain Management, Sleep Problems, Bowel and Bladder, Medical and co-morbidity Management, DVT prophylaxis, Rehabilitation Leadership, Coordination of treatment team Patient needs Physical Therapy: For a minimum of 1 hour, At least 5 out of 7 days Patient needs Physical Therapy to improve:: Mobility, Mobility, Mobility, Strengthening, Transfers, Stretching, ROM, Endurance, Stairs, Gait, Balance Patient needs Occupational Therapy: For a minimum of 1 hour, At least 5 out of 7 days Patient needs Occupational Therapy to improve ADL's incl.: Eating, Grooming, Bathing, Dressing, Toileting, Toilet transfers, Community Reintegration, Higher functioning activities, Household tasks, Adaptive Equipment, Splinting, Other activities as determined Patient requires 24/ Rehabilitation Nursing for: Pain Issues, Identifying and preventing risk factors, Monitoring and reporting current medical conditions, Assisting with ambulation, transfer, and all ADL's, Teaching patients about disease process and medications, Family teaching, Providing safe environment, Bharathi wel and Bladder Issues, Skin integrity, Medication Management Patient needs Instructional Technology Instructor/ Case Management for: Discharge Planning, Arranging Home Equipment or Services, Family Interventions Patient needs Dietary and Nutrition Services for: Adequate Nutrition, Nutritional Supplements, Nutritional Education Goals Patient will remain: free from falls, or injury at time of discharge. Patient will perform bed mobility at: MOD I level of assist. Patient will complete transfers from bed to chair at: MOD I level of assist. Patient will ambulate: 100 feet, with MOD I assist, with LRD Patient will complete upper body dressing at: MOD I level of assist. Patient will complete lower body dressing at: MOD I level of assist. Patient will complete toileting at: MOD I level of assist. Patient will perform bathing at: MOD I level of assist. Patient will complete grooming at: MOD I level of assist. Patient will complete home management skills at: MOD I level of assist. Patient will achieve: 12 stairs, at MOD I assist Patient will have pain level of: of 3 or less Patient's skin will: remain intact, free from infection. Patient will receive: adequate nutrition. Discharge Planning Pt Prognosis for Sig. Practical Improv. w/in Reasonable Time: Good Anticipated D/C Destination: Home with Outpt Therapy Was Preadmission Assessment Accurate?: Yes
--- NOTE | 2018-06-01 15:18 | PCM.PN.HOSP ---
Patient Problems: Active and Suspected Problems CVA (cerebral vascular accident) (Acute) Subjective: Feels better. Improved dexterity of left hand, but not back to baseline yet. Vitals/I&O's: Vital Signs Temp Pulse Resp BP Pulse Ox 36.7 C 101 H 18 137/68 H 93 06/01/18 08:45 06/01/18 08:47 06/01/18 08:45 06/01/18 08:47 06/01/18 11:19 Oxygen Flow Rate (L/min) 2 Oxygen Delivery Method Room Air Weight: 65.3 kg Body Mass Index (BMI) 25.4 Finger Stick Blood Glucose 96 Intake and Output for Last 24 Hours 05/30/18 05/31/18 06/01/18 23:59 23:59 23:59 Intake Total 240 / 240 Balance 240 / 240 General: Alert, No apparent distress HEENT: Atraumatic, Normocephalic Oral: Moist Mucosa, No Gingival or Mucosal Lesions/ Ulcerations Neck: No Nodes, Thyroid Normal Size and Texture Lungs: Clear to auscultation, Normal air movement, No rhonchi, No wheeze Cardiovascular: Regular rate, Regular Rhythm, Normal S1, Normal S2, No murmurs Abdomen: Bowel Sounds Present, Soft, Non Tender, Non-Distended, No Hepato-splenomegaly Extremities: No edema, No Calf Tenderness Laboratory Results 06/01/18 05:30: WBC 10.1, RBC 4.44 L, Hgb 13.6, Hct 41.0, MCV 92.3, MCH 30.6, MCHC 33.2, RDW 13.5, RDW Differential 44.6 H, Plt Count 234, MPV 11.1, Immature Gran % (Auto) 0.200, Neut % (Auto) 60.3, Lymph % (Auto) 18.5 L, [place] % (Auto) 14.7 H, Eos % (Auto) 5.7 H, Baso % (Auto) 0.6, Absolute Neuts (auto) 6.1, Absolute Lymphs (auto) 1.87, Total Counted Not Reportable 06/01/18 05:30: Sodium 144, Potassium 3.7, Chloride 108 H, Carbon Dioxide 28.0, Anion Gap 8, BUN 14, Creatinine 0.83, Estim Creat Clear Calc 67.60, Est GFR (MDRD) Af Amer 118, Est GFR (MDRD) Non-Af 97, BUN/Creatinine Ratio 16.8, Glucose 94, Calcium 8.9, Total Bilirubin 0.70, AST 24, ALT 27, Alkaline Phosphatase 100, Total Protein 7.0, Albumin 3.2, Globulin 3.8, Albumin/Globulin Ratio 0.8 L Current Medications Acetaminophen (Tylenol) 500 mg PO Q6H PRN PRN PRN Reason: PAIN Albuterol Sulfate (Ventolin Aerosols) 2.5 mg INHALATION Q2H PRN PRN PRN Reason: WHEEZING Albuterol/Ipratropium (Duoneb) 3 ml INHALATION Q4HWA.RT [facility] Last Admin: 06/01/18 15:15 Dose: 3 ml Alendronate Sodium (Fosamax) 70 mg PO QWEEK [facility] Allopurinol (Zyloprim) [facility] Last Admin: 06/01/18 07:58 Dose: 100 mg Ascorbic Acid (Vitamin C) 1,000 mg PO DAILY [facility] Last Admin: 06/01/18 08:47 Dose: 1,000 mg Aspirin (Aspirin, Baby) 162 mg PO DAILY@0800 [facility] Last Admin: 06/01/18 07:56 Dose: 162 mg Atorvastatin Calcium (Lipitor) 80 mg PO QHS [facility] Last Admin: 05/31/18 21:26 Dose: 80 mg Baclofen (Lioresal) 10 mg PO BID PRN PRN PRN Reason: PAIN Last Admin: 06/01/18 08:00 Dose: 10 mg Bisacodyl (Dulcolax) 10 mg RECTAL .PRN X 1 PRN PRN Reason: Constipation Budesonide (Pulmicort Aerosol) 0.5 mg INHALATION Q12H.RT [facility] Cholecalciferol (Vitamin D) 2,000 unit PO DAILY [facility] Last Admin: 06/01/18 08:47 Dose: 2,000 unit Clopidogrel Bisulfate (Plavix) 75 mg PO DAILY [facility] Last Admin: 06/01/18 08:47 Dose: 75 mg Colchicine (Colchicine) 0.6 mg PO BID PRN PRN Reason: GOUT Enoxaparin Sodium (Lovenox) 40 mg SC DAILY [facility] Last Admin: 06/01/18 08:52 Dose: 40 mg Magnesium Hydroxide (Milk Of Magnesia) 30 ml PO .PRN X 1 PRN PRN Reason: Constipation Metoprolol Succinate (Toprol Xl (Beta Diana)) 25 mg PO DAILY [facility] Last Admin: 06/01/18 08:47 Dose: 25 mg Nitroglycerin (Nitrostat) 0.4 mg SUBLINGUAL PRN PRN PRN Reason: CHEST PAIN Pantoprazole Sodium (Protonix) 20 mg PO DAILY [facility] Last Admin: 06/01/18 08:47 Dose: 20 mg Pregabalin (Lyrica) 150 mg PO BID [facility] Last Admin: 06/01/18 08:47 Dose: 150 mg Spironolactone (Aldactone) 12.5 mg PO DAILYCM [facility] Last Admin: 06/01/18 07:56 Dose: 12.5 mg Tamsulosin HCl (Flomax) 0.4 mg PO DAILY@0830 [facility] Last Admin: 06/01/18 07:56 Dose: 0.4 mg Tramadol HCl (Ultram) 50 mg PO Q4H PRN PRN PRN Reason: PAIN Last Admin: 06/01/18 08:00 Dose: 50 mg Medical Necessity - Tobacco Use Smoking Status: Current every day smoker Tobacco Use: Cigarettes Assessment/Plan All Active Problems CVA (cerebral vascular accident) (Acute) Aspiration into airway (Resolved) Sepsis (Ruled-out) 1. Acute Right MCA CVA Symptomatically improving. Time of onset is unknown patient was normal at night Patient is outside the window for TPA Symptoms much improved. Patient seen by neurology, who recommends aspirin, statin and clopidogrel DW Dr. Mcgregor, no additional work up necessary 2. Paroxysmal atrial fibrillation Continue with aspirin Plavix for now Event monitor as outpt Has been taken off anticoagulation in the past due to being in normal sinus rhythm, which he is still in. 3. COPD Stable Continue with breathing treatments 4. Carotid stenosis The LICA was non-contributory to his current CVA. This will need evaluated as outpt with his vascular surgeon. The KATIE stenoses are intracranial and not amenable to intervention and are to be treated medically, per Dr. Mcgregor. 5. DVT proph: LMWH Code Visit Inpatient E&M: 69713 Subs Hosp L2
--- NOTE | 2018-06-01 15:21 | PN_ITS ---
Patient Problems: Active and Suspected Problems CVA (cerebral vascular accident) (Acute) Subjective: Feels better. Improved dexterity of left hand, but not back to baseline yet. Vitals/I&O's: Vital Signs Temp Pulse Resp BP Pulse Ox 36.7 C 101 H 18 137/68 H 93 06/01/18 08:45 06/01/18 08:47 06/01/18 08:45 06/01/18 08:47 06/01/18 11:19 Oxygen Flow Rate (L/min) 2 Oxygen Delivery Method Room Air Weight: 65.3 kg Body Mass Index (BMI) 25.4 Finger Stick Blood Glucose 96 Intake and Output for Last 24 Hours 05/30/18 05/31/18 06/01/18 23:59 23:59 23:59 Intake Total 240 / 240 Balance 240 / 240 General: Alert, No apparent distress HEENT: Atraumatic, Normocephalic Oral: Moist Mucosa, No Gingival or Mucosal Lesions/ Ulcerations Neck: No Nodes, Thyroid Normal Size and Texture Lungs: Clear to auscultation, Normal air movement, No rhonchi, No wheeze Cardiovascular: Regular rate, Regular Rhythm, Normal S1, Normal S2, No murmurs Abdomen: Bowel Sounds Present, Soft, Non Tender, Non-Distended, No Hepato- splenomegaly Extremities: No edema, No Calf Tenderness Laboratory Results 06/01/18 05:30: WBC 10.1, RBC 4.44 L, Hgb 13.6, Hct 41.0, MCV 92.3, MCH 30.6, MCHC 33.2, RDW 13.5, RDW Differential 44.6 H, Plt Count 234, MPV 11.1, Immature Gran % (Auto) 0.200, Neut % (Auto) 60.3, Lymph % (Auto) 18.5 L, [place] % (Auto) 14.7 H, Eos % (Auto) 5.7 H, Baso % (Auto) 0.6, Absolute Neuts (auto) 6.1, Absolute Lymphs (auto) 1.87, Total Counted Not Reportable 06/01/18 05:30: Sodium 144, Potassium 3.7, Chloride 108 H, Carbon Dioxide 28.0, Anion Gap 8, BUN 14, Creatinine 0.83, Estim Creat Clear Calc 67.60, Est GFR (MDRD) Af Amer 118, Est GFR (MDRD) Non-Af 97, BUN/Creatinine Ratio 16.8, Glucose 94, Calcium 8.9, Total Bilirubin 0.70, AST 24, ALT 27, Alkaline Phosphatase 100, Total Protein 7.0, Albumin 3.2, Globulin 3.8, Albumin/Globulin Ratio 0.8 L Current Medications Acetaminophen (Tylenol) 500 mg PO Q6H PRN PRN PRN Reason: PAIN Albuterol Sulfate (Ventolin Aerosols) 2.5 mg INHALATION Q2H PRN PRN PRN Reason: WHEEZING Albuterol/Ipratropium (Duoneb) 3 ml INHALATION Q4HWA.RT [facility] Last Admin: 06/01/18 15:15 Dose: 3 ml Alendronate Sodium (Fosamax) 70 mg PO QWEEK [facility] Admin: 06/01/18 07:58 Dose: 100 mg Ascorbic Acid (Vitamin C) 1,000 mg PO DAILY [facility] Last Admin: 06/01/18 08:47 Dose: 1,000 mg Aspirin (Aspirin, Baby) 162 mg PO DAILY@0800 [facility] Last Admin: 06/01/18 07:56 Dose: 162 mg Atorvastatin Calcium (Lipitor) 80 mg PO QHS [facility] Last Admin: 05/31/18 21:26 Dose: 80 mg Baclofen (Lioresal) 10 mg PO BID PRN PRN PRN Reason: PAIN Last Admin: 06/01/18 08:00 Dose: 10 mg Bisacodyl (Dulcolax) 10 mg RECTAL .PRN X 1 PRN PRN Reason: Constipation Budesonide (Pulmicort Aerosol) 0.5 mg INHALATION Q12H.RT [facility] Cholecalciferol (Vitamin D) 2,000 unit PO DAILY [facility] Last Admin: 06/01/18 08:47 Dose: 2,000 unit Clopidogrel Bisulfate (Plavix) 75 mg PO DAILY [facility] Last Admin: 06/01/18 08:47 Dose: 75 mg Colchicine (Colchicine) 0.6 mg PO BID PRN PRN Reason: GOUT Enoxaparin Sodium (Lovenox) 40 mg SC DAILY [facility] Last Admin: 06/01/18 08:52 Dose: 40 mg Magnesium Hydroxide (Milk Of Magnesia) 30 ml PO .PRN X 1 PRN PRN Reason: Constipation Metoprolol Succinate (Toprol Xl (Beta Diana)) 25 mg PO DAILY [facility] Last Admin: 06/01/18 08:47 Dose: 25 mg Nitroglycerin (Nitrostat) 0.4 mg SUBLINGUAL PRN PRN PRN Reason: CHEST PAIN Pantoprazole Sodium (Protonix) 20 mg PO DAILY [facility] Last Admin: 06/01/18 08:47 Dose: 20 mg Pregabalin (Lyrica) 150 mg PO BID [facility] Last Admin: 06/01/18 08:47 Dose: 150 mg Spironolactone (Aldactone) 12.5 mg PO DAILYCM [facility] Last Admin: 06/01/18 07:56 Dose: 12.5 mg Tamsulosin HCl (Flomax) 0.4 mg PO DAILY@0830 [facility] Last Admin: 06/01/18 07:56 Dose: 0.4 mg Tramadol HCl (Ultram) 50 mg PO Q4H PRN PRN PRN Reason: PAIN Last Admin: 06/01/18 08:00 Dose: 50 mg Medical Necessity - Tobacco Use Smoking Status: Current every day smoker Tobacco Use: Cigarettes Assessment/Plan All Active Problems CVA (cerebral vascular accident) (Acute) Aspiration into airway (Resolved) Sepsis (Ruled-out) 1. Acute Right MCA CVA Symptomatically improving. Time of onset is unknown patient was normal at night Patient is outside the window for TPA Symptoms much improved. Patient seen by neurology, who recommends aspirin, statin and clopidogrel DW Dr. Mcgregor, no additional work up necessary 2. Paroxysmal atrial fibrillation Continue with aspirin Plavix for now Event monitor as outpt Has been taken off anticoagulation in the past due to being in normal sinus rhythm, which he is still in. 3. COPD Stable Continue with breathing treatments 4. Carotid stenosis The LICA was non-contributory to his current CVA. This will need evaluated as outpt with his vascular surgeon. The KAITE stenoses are intracranial and not amenable to intervention and are to b e treated medically, per Dr. Mcgregor. 5. DVT proph: LMWH Code Visit Inpatient E&M: 35449 Subs Hosp L2
--- NOTE | 2018-06-01 16:20 | CHAPLAIN ---
Type of Pastoral Visit _x__ Initial Visit ___ Follow-up Visit ___ On-call Visit ___ General Patient Visit ___ Spiritual Assessment ___ Family Conference ___ Bereavement ___ Rapid Response ___ Code Blue ___ Other (describe below) Pastoral Care Referral From _x__ Patient ___ Family ___ Nurse ___ Physician ___ Dialysis Technician ___ Zinc Plate Cutter ___ Other (describe below) Sacrament/Intervention _x__ Active listening ___ Anointing ___ Confucianism ___ Bereavement ___ Communion _x__ Kylie exploration ___ _x__ Life review _x__ Prayer ___ Reconciliation ___ Sacrament of Sick ___ Supportive presence ___ Wedding ___ Other (describe below) Pastoral Comments patient had many spiritual questions and asked deep theological explanations; pt concern is about understanding spiritual matters and the health of his sister
[2018-06-01] MEDS: Budesonide Respules 0.5 MG/2 ML AMPUL.NEB. INHALATION (19:30)
[2018-06-01] MEDS: Atorvastatin Calcium 80 MG Tablet PO (19:56)
[2018-06-01] MEDS: Acetaminophen 500 MG Tablet PO (20:16)
[2018-06-02] MEDS: Albuterol 2.5 MG/3 ML VIAL.NEB. INHALATION (05:30)
[2018-06-02] MEDS: Baclofen 10 MG Tablet PO (06:55)
[2018-06-02] MEDS: Acetaminophen 500 MG Tablet PO (06:55)
[2018-06-02 07:21] VITALS: BP 119/70; PULSE 93; RESP 18; TEMP 36.7; O2SAT 92
[2018-06-02] MEDS: Atorvastatin Calcium 80 MG Tablet PO (08:35)
[2018-06-02] MEDS: Pantoprazole Sodium 20 MG Tablet PO (08:36)
[2018-06-02] MEDS: Allopurinol 100 MG Tablet PO (08:37)
[2018-06-02] MEDS: Clopidogrel Bisulfate 75 MG Tablet PO (08:37)
[2018-06-02] MEDS: Aspirin 81 MG TAB.CHEW 162 MG PO (08:37)
[2018-06-02] MEDS: Tamsulosin HCl 0.4 MG Capsule PO (08:37)
[2018-06-02 08:38] VITALS: BP 130/89; PULSE 116
[2018-06-02] MEDS: Metoprolol(XL)Succ 25 MG Tablet PO (08:38)
[2018-06-02] MEDS: Spironolactone 25 MG Tablet 12.5 MG PO (08:38)
[2018-06-02] MEDS: traMADol 50 MG Tablet PO ×2 (08:44→20:40)
[2018-06-02] MEDS: Ascorbic Acid 500 MG Tablet 1000 MG PO (09:35)
[2018-06-02] MEDS: Pregabalin 75 MG Capsule 150 MG PO ×2 (09:35→20:40)
[2018-06-02] MEDS: Enoxaparin 40 MG/0.4 ML Syringe SC (09:35)
[2018-06-02 09:39] VITALS: O2SAT 94
[2018-06-02 11:16] VITALS: PULSE 94; RESP 18; O2SAT 95
[2018-06-02] MEDS: Budesonide Respules 0.5 MG/2 ML AMPUL.NEB. INHALATION ×2 (11:16→19:00)
[2018-06-02] MEDS: Ipratropium/Albuterol Sulfate 3 ML AMPUL.NEB INHALATION ×3 (11:16→19:00)
[2018-06-02 15:13] VITALS: BMI 25.4
[2018-06-02 15:18] VITALS: PULSE 91; RESP 18
[2018-06-02 19:42] VITALS: BP 118/62; PULSE 82; RESP 16; TEMP 37.2; O2SAT 94
[2018-06-02 20:01] VITALS: BMI 25.4
[2018-06-02 20:31] VITALS: BMI 25.4
[2018-06-03] MEDS: Alendronate Sodium 70 MG Tablet PO (05:12)
[2018-06-03] MEDS: traMADol 50 MG Tablet PO (05:17)
--- NOTE | 2018-06-03 05:23 | NURSING ---
Respiratory alerted for a PRN breathing treatment. Pt stated he would prefer to wait till after breathing treatment to get ready for the day.
[2018-06-03] MEDS: Ipratropium/Albuterol Sulfate 3 ML AMPUL.NEB INHALATION ×4 (05:30→20:10)
[2018-06-03] MEDS: Budesonide Respules 0.5 MG/2 ML AMPUL.NEB. INHALATION ×2 (05:30→20:10)
[2018-06-03 06:50] VITALS: BP 119/61; PULSE 76; RESP 18; TEMP 36.6; O2SAT 95
[2018-06-03 07:43] VITALS: PULSE 76
[2018-06-03] MEDS: Clopidogrel Bisulfate 75 MG Tablet PO (07:43)
[2018-06-03] MEDS: Ascorbic Acid 500 MG Tablet 1000 MG PO (07:43)
[2018-06-03] MEDS: Metoprolol(XL)Succ 25 MG Tablet PO (07:43)
[2018-06-03] MEDS: Allopurinol 100 MG Tablet PO (07:43)
[2018-06-03] MEDS: Spironolactone 25 MG Tablet 12.5 MG PO (07:43)
[2018-06-03] MEDS: Pantoprazole Sodium 20 MG Tablet PO (07:43)
[2018-06-03] MEDS: Tamsulosin HCl 0.4 MG Capsule PO (07:43)
[2018-06-03] MEDS: Enoxaparin 40 MG/0.4 ML Syringe SC (07:44)
[2018-06-03] MEDS: Aspirin 81 MG TAB.CHEW 162 MG PO (07:44)
[2018-06-03] MEDS: Pregabalin 75 MG Capsule 150 MG PO ×2 (07:45→20:32)
[2018-06-03 11:04] VITALS: PULSE 79; RESP 18; O2SAT 97
[2018-06-03 12:42] VITALS: BMI 25.4
[2018-06-03 15:06] VITALS: PULSE 88; RESP 18
--- NOTE | 2018-06-03 20:08 | NURSING ---
RT provides breathing treatment for pt per pt request.
[2018-06-03 20:10] VITALS: PULSE 87; RESP 18
[2018-06-03 20:17] VITALS: BP 106/57; PULSE 84; RESP 16; TEMP 36.8; O2SAT 92
[2018-06-03 20:22] VITALS: BMI 25.4
[2018-06-03] MEDS: Atorvastatin Calcium 80 MG Tablet PO (20:32)
--- NOTE | 2018-06-03 22:55 | NURSING ---
Pt refused shower this hs
[2018-06-04] VITALS (8 sets, daily range): BP systolic 107–128; BP diastolic 62–71; PULSE 75–95; RESP 16–19; TEMP 36.5–37.2; O2SAT 86–92; BMI 25.4
[2018-06-04] MEDS: Albuterol 2.5 MG/3 ML VIAL.NEB. INHALATION (04:40)
[2018-06-04] MEDS: traMADol 50 MG Tablet PO ×3 (06:31→19:41)
[2018-06-04] MEDS: Ipratropium/Albuterol Sulfate 3 ML AMPUL.NEB INHALATION ×4 (07:30→19:37)
[2018-06-04] MEDS: Budesonide Respules 0.5 MG/2 ML AMPUL.NEB. INHALATION ×2 (07:30→19:37)
[2018-06-04] MEDS: Ascorbic Acid 500 MG Tablet 1000 MG PO (07:58)
[2018-06-04] MEDS: Tamsulosin HCl 0.4 MG Capsule PO (07:58)
[2018-06-04] MEDS: Metoprolol(XL)Succ 25 MG Tablet PO (07:58)
[2018-06-04] MEDS: Pantoprazole Sodium 20 MG Tablet PO (07:58)
[2018-06-04] MEDS: Spironolactone 25 MG Tablet 12.5 MG PO (07:59)
[2018-06-04] MEDS: Aspirin 81 MG TAB.CHEW 162 MG PO (07:59)
[2018-06-04] MEDS: Clopidogrel Bisulfate 75 MG Tablet PO (07:59)
[2018-06-04] MEDS: Allopurinol 100 MG Tablet PO (07:59)
[2018-06-04] MEDS: Enoxaparin 40 MG/0.4 ML Syringe SC (08:01)
[2018-06-04] MEDS: Pregabalin 75 MG Capsule 150 MG PO ×2 (08:01→19:42)
--- NOTE | 2018-06-04 08:31 | CPS ---
Patient up in bathroom when O2 was checked. Patient denies any SOB. 2lpm NC on at bedside.
--- NOTE | 2018-06-04 10:05 | CASEMGMT ---
Team meeting held. Patient present. No support person present at team meeting. Patient requesting to discharge to home on 06/05/18. Team is agreeable to discharge date and recommending for patient to continue with occupational and speech therapy through outpatient care. Patient is agreeable to recommendation and requesting for outpatient therapies to be set up through [facility]. Patient did identify a need for transportation to be set up via hospital van. Patient currently not using any DME and reporting no DEM needs. Patient to continue with further care and treatment on the Inpatient Rehab Unit until time of discharge. Support given. Will continue to follow for further discharge planning and support. Proposed discharge date: 06/05/18. PLAN: Discharge to home with family. VIVIENNE Heredia
--- NOTE | 2018-06-04 10:59 | DS.PCM_ITS ---
Rehab Discharge Summary DATE OF ADMISSION: 05/31/18 DATE OF DISCHARGE: 06/05/2018 - Rehab Diagnosis Debility post stroke Subjective: No issues overnight. Staffed in team meeting today. All questions were answered. Edgar MUÑOZ still is at risk for silent aspiration due to his COPD. Is on home oxygen from his COPD. Needs ST evaluation as discharge as outpatient. - Physical Exam General: Alert HEENT: Normocephalic Neck: Supple Lungs: Normal air movement Cardiovascular: Normal S1, Normal S2 Abdomen: Bowel Sounds Present Extremities: No cyanosis Neurological: - - consious, alert, CN 2-12 grossly intact, power 5/5 all 4 extremities except mild left UE drift, no sensory loss, no cerebellar signs, gait deferred, Reflexes + B/L B/S/T/K/A, NIHSS 1 at present Psych/Mental Status: Normal Affect Vital Signs Temp Pulse Resp BP Pulse Ox 97.7 F L 93 16 128/71 H 86 06/04/18 07:00 06/04/18 07:58 06/04/18 07:30 06/04/18 07:00 06/04/18 07:30 Oxygen Flow Rate (L/min) 2 Oxygen Delivery Method Room Air Weight: 65.3 kg Body Mass Index (BMI) 25.4 Finger Stick Blood Glucose 96 Intake and Output for Last 24 Hours 06/02/18 06/03/18 06/04/18 23:59 23:59 23:59 Intake Total 900 / 900 360 / 360 Output Total 300 / 300 Balance 900 / 900 -300 / -300 360 / 360 Discharge Diet: Low fat/ Low Cholesterol, - - low fat/cardiac, nectar thick liquids Discharge Activity: - - No driving till cleared by OT simulation driving test Weight Bearing Status: Weight bearing as tolerated Call your doctor if your incision/area has: Increased Pain/ Swelling, Increased Redness, Foul Smelling Discharge Call your doctor if you observe: Fever of 101 or Higher, Coldness, Increased Pain, Numbness or Tingling, Change in Color, Inability to urinate, Inability to have a bowel movement, Using more than one pad per hour, Shortness of breath, Dizziness, Fainting spells, Swelling in the ankles, Chest pain, Prolonged hiccoughing, Increased palpitations (irregular heartbeat), Calf discomfort, Uncontrolled pain Home Medications: Medications to take at Discharge Allopurinol 100 mg PO DAILY 07/04/16 Ascorbic Acid [Vitamin C] 1,000 mg PO DAILY 07/04/16 Aspirin [Aspirin, Baby] 162 mg PO DAILY@0800 07/04/16 Cholecalciferol (Vitamin D3) [Vitamin D3] 2,000 unit PO DAILY 07/04/16 Colchicine 0.6 mg PO BID PRN 07/04/16 Ipratropium [Atrovent Aerosols] 0.25 mg INHALATION 4X/DAY 07/04/16 Nitroglycerin 0.4 mg SL PRN PRN 07/04/16 Alendronate Sodium [Fosamax] 70 mg PO QWEEK 07/15/17 Baclofen 10 mg PO BID PRN PRN 07/15/17 Albuterol Inhaler [Ventolin Hfa] 2 puff INHALATION Q6H PRN PRN 05/31/18 Hydroxychloroquine Sulfate [Plaquenil] 400 mg PO DAILY 06/01/18 traMADol [Ultram] 50 mg PO QHS PRN 06/01/18 Aspirin [Aspirin, Baby] 81 mg PO DAILY@0800 30 Days #30 tab.chew 06/04/18 Atorvastatin Calcium [Lipitor] 80 mg PO QHS 30 Days #30 tab 06/04/18 Clopidogrel Bisulfate [Plavix] 75 mg PO DAILY 30 Days #30 tab 06/04/18 Metoprolol Succinate 25 mg PO DAILY 30 Days #30 tab.er.24h 06/04/18 Omeprazole [Prilosec] 20 mg PO DAILY 30 Days #30 cap 06/04/18 Pregabalin [Lyrica] 150 mg PO BID 30 Days #60 capsule 06/04/18 Spironolactone [Aldactone] 12.5 mg PO DAILY 30 Days #30 tab 06/04/18 Tamsulosin HCl [Flomax] 0.4 mg PO DAILY 30 Days #30 cap 06/04/18 Following Prescrptions Were Given to Patient: Aspirin [Aspirin, Baby] 81 mg PO DAILY@0800 30 Days #30 tab.chew Atorvastatin Calcium [Lipitor] 80 mg PO QHS 30 Days #30 tab Clopidogrel Bisulfate [Plavix] 75 mg PO DAILY 30 Days #30 tab Metoprolol Succinate 25 mg PO DAILY 30 Days #30 tab.er.24h Omeprazole [Prilosec] 20 mg PO DAILY 30 Days #30 cap Spironolactone [Aldactone] 12.5 mg PO DAILY 30 Days #30 tab Tamsulosin HCl [Flomax] 0.4 mg PO DAILY 30 Days #30 cap Pregabalin [Lyrica] 150 mg PO BID 30 Days #60 capsule Primary Care Physician: Neto Ku MD [Primary Care Provider] - Please follow up with your Primary Care Physician in: F/U with PCP in 2 weeks When: Stroke/Endovascular Neurology at [facility]U [facility] When: Speech therapy as outpatient When: Follow up with Vascular surgery in 2 weeks Disposition: Home Patient Condition:: Fair Rehab Course The patient is a 67 year old M with PMH HTN, ? H/o PAF not on AC, CAD s/p CABG, chronic diastolic CHF, COPD, chronic respiratory failure, CKD, BPH, [facility] with debility s/s/p right MCA stroke, for > 3 hrs therapy daily, with a goal of returning home at or near his prior functional independence. Patient had uncomplicated rehab course, tolerated rehab therapy well. During his inpatient admission he had MRI brain which showed acute right MCA stroke (right frontoparietal and right posterior temporal) infarcts, CTA head showed Atherosclerotic calcifications of the vertical petrous segments of the internal carotid arteries with greater than 70% stenosis on the right and approximately 50% narrowing on the left. Additional calcific plaquing in the cavernous siphons of the internal carotid arteries with less than 25% narrowing. Question of curved, fingerlike 5 mm projection/aneurysm from the confluence of the vertical left petrous segment and proximal carotid siphon. This was not apparent on the MRA exam, and may be summation artifact. Atretic or occluded distal right vertebral artery. CTA neck reported to show extensive calcific atherosclerotic plaque in the left carotid artery bifurcation with greater than 70% narrowing of the distal common carotid artery and greater than 70% ostial stenosis of the internal carotid artery. Atherosclerotic calcification at the right carotid artery bifurcation without significant internal carotid artery stenosis. Moderate atherosclerotic stenoses at the ostia of both right left vertebral arteries. The right vertebral artery is diminutive in caliber. TTE showed EF 45%, normal LA size. LDL-55. There is ? H/O PAF for which he was on Coumadin in the past in the 1980s or 90s per patient, but per patient his AC was stopped by his treating physicians probably as no evidence of Afib was found and since then he has been on ASA for the past more than 20 yrs per patient. And during this admission per documentation he was in sinus rhythm. Given the unclear history of Afib, and probably the stroke mechanism this admission was athero-embolic from right ICA petrous calcification of >70%, also found to have asymptomatic left ICA >70%, patient was managed with ASA/Plavix and Lipitor. Patient to be on dual AP for 3 months, then switch to single AP. Bleeding risks discussed with patient. Patient to follow up with Stroke/Endovascular neurology/neurosurgeon as outpatient for further evaluation and management of right petrous ICA calcifications and for ? aneurysm left petrous ICA. Follow up vascular surgery for asymptomatic left ICA stenosis. All these discussed with patient in detail. 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 Needs 30 day event recorder as outpatient and if negative may need loop recorder. He needs to follow up with OT and ST as outpatient, had silent aspiration, which needs to be evaluated with MBS as outpatient, to be followed up by his PCP. Meaningful Use Info Meaningful Use Diagnoses (Choose all that apply): None applicable
--- NOTE | 2018-06-04 11:53 | PCM.DC ---
- Discharge Diagnoses Reason(s) for Visit for Discharge Instructions: Debility s/p Right MCA stroke You will use the following diet at home:: Other - low fat, cardiac Your liquids should be the consistency of: [place] Thick Discharge Activity: - - No driving till cleared by OT simulation driving test Weight Bearing Status: Weight bearing as tolerated Call your doctor if your incision/area has: Increased Pain/ Swelling, Increased Redness, Foul Smelling Discharge Call your doctor if you observe: Fever of 101 or Higher, Coldness, Increased Pain, Numbness or Tingling, Change in Color, Inability to urinate, Inability to have a bowel movement, Using more than one pad per hour, Shortness of breath, Dizziness, Fainting spells, Swelling in the ankles, Chest pain, Prolonged hiccoughing, Increased palpitations (irregular heartbeat), Calf discomfort, Uncontrolled pain Allergies/Adverse Reactions: Allergies No Known Allergies Allergy (Verified 05/29/18 07:20) Medications to take at Discharge Allopurinol 100 mg PO DAILY 07/04/16 Ascorbic Acid [Vitamin C] 1,000 mg PO DAILY 07/04/16 Aspirin [Aspirin, Baby] 162 mg PO DAILY@0800 07/04/16 Cholecalciferol (Vitamin D3) [Vitamin D3] 2,000 unit PO DAILY 07/04/16 Colchicine 0.6 mg PO BID PRN 07/04/16 Ipratropium [Atrovent Aerosols] 0.25 mg INHALATION 4X/DAY 07/04/16 Nitroglycerin 0.4 mg SL PRN PRN 07/04/16 Alendronate Sodium [Fosamax] 70 mg PO QWEEK 07/15/17 Baclofen 10 mg PO BID PRN PRN 07/15/17 Albuterol Inhaler [Ventolin Hfa] 2 puff INHALATION Q6H PRN PRN 05/31/18 Hydroxychloroquine Sulfate [Plaquenil] 400 mg PO DAILY 06/01/18 traMADol [Ultram] 50 mg PO QHS PRN 06/01/18 Aspirin [Aspirin, Baby] 81 mg PO DAILY@0800 30 Days #30 tab.chew 06/04/18 Atorvastatin Calcium [Lipitor] 80 mg PO QHS 30 Days #30 tab 06/04/18 Clopidogrel Bisulfate [Plavix] 75 mg PO DAILY 30 Days #30 tab 06/04/18 Metoprolol Succinate 25 mg PO DAILY 30 Days #30 tab.er.24h 06/04/18 Omeprazole [Prilosec] 20 mg PO DAILY 30 Days #30 cap 06/04/18 Pregabalin [Lyrica] 150 mg PO BID 30 Days #60 capsule 06/04/18 Spironolactone [Aldactone] 12.5 mg PO DAILY 30 Days #30 tab 06/04/18 Tamsulosin HCl [Flomax] 0.4 mg PO DAILY 30 Days #30 cap 06/04/18 The following prescriptions were given: Aspirin [Aspirin, Baby] 81 mg PO DAILY@0800 30 Days #30 tab.chew Atorvastatin Calcium [Lipitor] 80 mg PO QHS 30 Days #30 tab Clopidogrel Bisulfate [Plavix] 75 mg PO DAILY 30 Days #30 tab Metoprolol Succinate 25 mg PO DAILY 30 Days #30 tab.er.24h Omeprazole [Prilosec] 20 mg PO DAILY 30 Days #30 cap Spironolactone [Aldactone] 12.5 mg PO DAILY 30 Days #30 tab Tamsulosin HCl [Flomax] 0.4 mg PO DAILY 30 Days #30 cap Pregabalin [Lyrica] 150 mg PO BID 30 Days #60 capsule Primary Care Physician: Neto Ku MD [Primary Care Provider] - Please follow up with your Primary Care Physician in: F/U with PCP in 2 weeks Test Results: Test results from this visit will be discussed in further detail at your follow-up appointment, if applicable. When: Stroke/Endovascular Neurology at [facility]-F/U [facility] When: Speech therapy as outpatient When: Follow up with Vascular surgery in 2 weeks Proposed Discharge Date: 06/05/18
[2018-06-04] MEDS: Acetaminophen 500 MG Tablet PO (13:43)
--- NOTE | 2018-06-04 16:23 | CASEMGMT ---
Social Work Telephone call to [facility]. [facility] notified about referral for outpatient occupational therapy and speech therapy and that patient will need van transportation. Appointment set up for 06/06/18 starting at 1200 (O.T) and 1:00 (S.L.P). The van is to pick patient up at 11:30am. Order faxed. Spoke with patient in room. This social work case manager communicating above information. Patient agreeable to appointment times and dates. Patient reporting to have transportation home tomorrow via patient sister, who patient lives with. Patient reporting no further needs. Patient did inquire about advanced care planning and completing durable power of attorney recruiter for health care paperwork but not knowing who to assign as patient agent. Patient educated that an agent would need to be assigned. Patient planning to speak with family about who could be patient agent. This social work case manager providing patient with information on how to set up an advanced care planning appointment with [facility] after patient discharge if patient then is able to complete documents. Support given. Proposed discharge date: 06/05/18 PLAN: Discharge to home with sister and outpatient therapy. VIVIENNE Heredia
--- NOTE | 2018-06-04 18:48 | NURSING ---
Went over discharge instructions, medications, and appts. with pt. pt. verbalized understanding this RN answered all questions. Pt has in hand discharge instructions, and prescriptions. Pt will discharge between 10:00-1330. Niece will pick pt up.
[2018-06-04] MEDS: Atorvastatin Calcium 80 MG Tablet PO (19:41)
--- NOTE | 2018-06-04 19:43 | NURSING ---
Respiratory therapist in room to provide breathing treatment
[2018-06-05 06:39] VITALS: PULSE 81; RESP 18; O2SAT 91
[2018-06-05] MEDS: Budesonide Respules 0.5 MG/2 ML AMPUL.NEB. INHALATION (06:39)
[2018-06-05] MEDS: Ipratropium/Albuterol Sulfate 3 ML AMPUL.NEB INHALATION (06:39)
[2018-06-05 07:37] VITALS: BP 118/60; PULSE 76; RESP 17; TEMP 36.9; O2SAT 92
[2018-06-05] MEDS: Spironolactone 25 MG Tablet 12.5 MG PO (09:19)
[2018-06-05 09:20] VITALS: PULSE 78
[2018-06-05] MEDS: Metoprolol(XL)Succ 25 MG Tablet PO (09:20)
[2018-06-05] MEDS: Aspirin 81 MG TAB.CHEW 162 MG PO (09:20)
[2018-06-05] MEDS: Ascorbic Acid 500 MG Tablet 1000 MG PO (09:21)
[2018-06-05] MEDS: Pantoprazole Sodium 20 MG Tablet PO (09:21)
[2018-06-05] MEDS: Clopidogrel Bisulfate 75 MG Tablet PO (09:22)
[2018-06-05] MEDS: Tamsulosin HCl 0.4 MG Capsule PO (09:22)
[2018-06-05] MEDS: Allopurinol 100 MG Tablet PO (09:24)
[2018-06-05] MEDS: Pregabalin 75 MG Capsule 150 MG PO (09:52)
[2018-06-05] MEDS: traMADol 50 MG Tablet PO (09:53)
[2018-06-05 10:00] VITALS: BMI 25.4
[2018-06-05 10:30] VITALS: BP 118/60; PULSE 76; RESP 17; TEMP 36.9; O2SAT 92
--- NOTE | 2018-06-05 10:30 | NURSING ---
Discharged home with daughter and patient verbalized understanding to discharge instructions given.
--- NOTE | 2018-06-05 12:42 | CASEMGMT ---
Insurance Notified insurance of resident discharge on 06/05/18 to home with sister and outpatient therapy. Auth#[id number] VIVIENNE Hreedia
== END 2018-06-05 10:30 | disposition home or self-care (01) | DRG 57 ==
PROVIDERS: Admitting Provider Psychiatry & Neurology Neurology; Family Provider Family Medicine; PCP Family Medicine; Referring Provider Psychiatry & Neurology Neurology; Visit Provider Family Medicine
DX: I69.354 Hemiplegia and hemiparesis following cerebral infarction affecting left non-dominant side (principal); J96.10 Chronic respiratory failure, unspecified whether with hypoxia or hypercapnia; I50.32 Chronic diastolic (congestive) heart failure; I13.0 Hypertensive heart and chronic kidney disease with heart failure and stage 1 through stage 4 chronic kidney disease, or unspecified chronic kidney disease; I48.0 Paroxysmal atrial fibrillation; N40.0 Benign prostatic hyperplasia without lower urinary tract symptoms; N18.3 Chronic kidney disease, stage 3 (moderate); J44.9 Chronic obstructive pulmonary disease, unspecified; I25.10 Atherosclerotic heart disease of native coronary artery without angina pectoris; Z95.1 Presence of aortocoronary bypass graft; F17.210 Nicotine dependence, cigarettes, uncomplicated; F32.9 Major depressive disorder, single episode, unspecified; Z99.81 Dependence on supplemental oxygen
CPT/HCPCS: 36415; 80053; 85025; 92523; 92526; 94640; 97110; 97116; 97162; 97166; 97530; 97535; 97802; 99406

== ENCOUNTER → 2018-06-07 09:07 | Outpatient (CLI) | payer MEDICARE, MEDICAID, SELFPAY ==
[2018-06-04 11:07] VITALS: BMI 25.4
[2018-06-05 10:00] VITALS: BMI 25.4
--- NOTE | 2018-06-07 09:14 | RAD_ITS ---
STUDY: SWALLOWING STUDY REASON FOR EXAM: Male, 67 years old. Dysphasia. History of stroke. TECHNIQUE: The examination was performed with Speech Pathology in attendance. Under fluoroscopic observation, the patient ingested thin barium, thick barium, barium pudding, and barium coated cracker. FLUOROSCOPY TIME: 1:30 minutes/seconds. 1413 fluoroscopic images were obtained. RADIOLOGIST INVOLVEMENT: Radiologist was present and providing direct supervision. COMPARISON: None. FINDINGS: The following was observed during swallowing of the various mixtures of barium: Thin Barium: Transient penetration with ingestion of thin liquids. Thick Barium: There was no evidence of aspiration or laryngeal penetration. Barium Pudding: There was no evidence of aspiration or laryngeal penetration. Barium Coated Cracker: There was no evidence of aspiration or laryngeal penetration. RAD/Swallowing Function w/Video IMPRESSION: Transient penetration with ingestion of thin liquids. The swallow study findings were discussed with the patient by the speech pathologist at the conclusion of the examination. Please see speech pathology report for more information and recommendations. Electronically Signed: Navin Matt MD at 11:04 EST , Service support ,
--- NOTE | 2018-06-07 10:03 | SP.MBSS_ITS ---
PRIMARY / SECONDARY DIAGNOSIS: oropharyngeal dysphagia (R13.12) REFERRING PHYSICIAN: Dr. Pacheco CURRENT DIET: nectar thick liquids, mechanical soft textures DENTITION: upper dentures and endentulous on bottom MENTAL STATUS: WNL RESPIRATORY STATUS: O2 via room air PREVIOUS MODIFIED BARIUM SWALLOW STUDY: N/A REASON FOR REFERRAL: Dysphagia secondary to CVA ([facility]) MEDICAL HISTORY: The patient is a 67/m with pmhx significant for CVA, benign prostatic hypertrophy, HTN, stage 3 chronic kidney disease, chronic respiratory failure, COPD, paroxysmal atrial fibrillation, degenerative disc disease, CAD, hx of CABG, and myoclonic jerking. STUDY FINDINGS: Patient participated in a Modified Barium Swallow (MBS) study on 06/07/2018. Dr. Matt was the radiologist present for this evaluation. This study was recorded in the lateral view and images were sent to PACs for storage. The following consistencies were presented to this patient for analysis of oropharyngeal swallow function: thin liquid, nectar thick liquid, pudding, and a regular textured, Susu Doone cookie. Results of the MBS are as follows: PENETRATION / ASPIRATION SCALE (FLORES): 1 = does not enter airway 2 = enters airway/above vocal folds/ejected 3 = enters airway/above vocal folds/not ejected 4 = enters airway/contacts vocal folds/ejected 5 = enters airway/contacts vocal folds/not ejected 6 = enters airway/below vocal folds/ejected 7 = enters airway/below vocal folds/not ejected despite effort 8 = enters airway/below vocal folds/no effort PENETRATION / ASPIRATION SCALE (SCORE): 1) Thin liquid via teaspoon = 1 2) Thin liquid via teaspoon = 1 3) Thin liquid via cup single small sip = 1 4) Thin liquid via cup single large sip = 1 5) Thin liquid via cup sequential sips = 2 6) Pudding 7) Cookie 8) [place] liquid via cup single small sip = 1 9) [place] liquid via cup single large sip = 1 IMPRESSION: mild oropharyngeal dysphagia (R13.12) ORAL PHASE CHARACTERIZED BY: LABIAL SEAL: no labial escape TONGUE CONTROL DURING BOLUS MANIPULATION: escape to lateral buccal cavity/floor of mouth BOLUS PREPARATION / MASTICATION: slow prolonged chewing/mashing with complete recollection BOLUS TRANSPORT / LINGUAL MOTION: brisk tongue motion ORAL RESIDUE: trace residue lining oral structures PHARYNGEAL PHASE CHARACTERIZED BY: INITIATION OF PHARYNGEAL SWALLOW: bolus head at posterior angle of ramus at first hyoid excursion SOFT PALATE ELEVATION: no bolus between soft palate and pharyngeal wall LARYNGEAL ELEVATION: partial superior movement of thyroid cartilage/partial approximation of arytenoids cartilage to epiglottic petiole ANTERIOR HYOID EXCURSION: complete anterior movement EPIGLOTTIC MOVEMENT: complete epiglottic inversion LARYNGEAL VESTIBULE CLOSURE AT HEIGHT OF SWALLOW: incomplete laryngeal vestibule closure with narrow column of air/contrast in laryngeal vestibule PHARYNGEAL STRIPPING WAVE: pharyngeal stripping wave present / complete PHARYNGOESOPHAGEAL SEGMENT OPENING: partial distension and partial duration; partial obstruction of flow TONGUE BASE RETRACTION:no contrast between tongue base and posterior pharyngeal wall PHARYNGEAL RESIDUE: trace residue within or on pharyngeal structures ESOPHAGEAL PHASE CHARACTERIZED BY: ESOPHAGEAL BOLUS CLEARANCE IN THE UPRIGHT POSITION: could not view EFFECTS OF TREATMENT STRATEGIES ATTEMPTED: Reduced bolus size = effective DIET TEXTURE RECOMMENDATIONS: Will recommend a soft textured, thin liquid diet. COMPENSATORY STRATEGIES RECOMMENDED: Will recommend reduced bolus volume, reduced rate of intake, and seated upright at 90 degrees during PO intake. INTERPRETATION OF RESULTS: Patient presents with mild oropharyngeal dysphagia (R13.12) secondary to recent CVA. Oral phase primarily marked by mild mastication inefficiency with solid Susu Doone cookie mostly due to missing lower dentures. Trace residue remained post deglutition. Pharyngeal phase primarily marked by reduced laryngeal elevation and partial laryngeal vestibule closure/pressure contributing to penetration above vocal cords (with ejection) with larger, sequential sips of thin liquids. Deficit ameliorated with bolus volume adjustments. No aspiration was found this date and time with any of the textures/liquids trialed. RECOMMENDATIONS: Patient requires intensive skilled speech-language intervention targeting continued diet texture management, training and implementation of recommended compensatory strategies, and training and implementation of recommended oropharyngeal strengthening exercises to facilitate improved laryngeal elevation and vestibule closure / pressure. Would consider a repeat modified barium swallow study in the future if patient is concerned with changes in swallow function in the future given case history and given fact that the patient is at higher risk for silent aspiration given COPD diagnosis.. ADDITIONAL COMMENTS/RECOMMENDATIONS: Results and recommendations were discussed with the patient immediately following MBS completion, with the patient verbalizing understanding and agreement with all recommendations and education provided. IMAGE COUNT: [id number] Siria Sahu M.A., [facility]-DATA PROCESSING CONTROL CLERK Speech Language Pathologist [facility] [address] [place] [address] [phone]
== END ==
PROVIDERS: Family Provider Family Medicine; PCP Family Medicine; Referring Provider Psychiatry & Neurology Neurology; Visit Provider Psychiatry & Neurology Neurology
DX: Z86.73 Personal history of transient ischemic attack (TIA), and cerebral infarction without residual deficits (principal)
CPT/HCPCS: 74230; 92611

== ENCOUNTER 2018-08-08 10:30 | Outpatient (RCR) | payer MEDICARE, MEDICAID, SELFPAY ==
[2018-06-04 11:07] VITALS: BMI 25.4
--- NOTE | 2018-06-06 15:06 | HP.OTEVAL ---
Patient's Visit Information KAMILLA DICKSON is a 67 year old M, referred to Occupational Therapy by Chiara Pacheco MD, with a diagnosis of CVA. Date of Evaluation: 06/06/18 Occupational Therapist: Susie Weir - Subjective Subjective: Kamilla Osman arrived for OT evaluation today. 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 Lives in [facility]. 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 On the of next month he has piledriver carpenter rehab evaluation. - ADLs Comments: hard time getting hearing aide in. Fasteners: Buttons Kitchen: Chop with knife, Peel fruits & vegetables, Open jars, Open bottle caps, Lift gallon of milk, Take dish out of oven Household: Laundry Comments: laundry is within building but has to go outside and down 10-12 stairs. Miscellaneous: Use cell phone, Handle money (change), Take things out of wallet, Shuffle cards, Drive Comments: Noted everything that is small and requires in hand manipulation with L hand is very difficulty. - Objective Objective/Observation: decreased coordination noted with L hand, h/o fx of distal ulna, increased ulnar formation, no edema. Limited coordination of L hand and fingers. - ROM Forearm: Supination R 0-76, L 0-59- limitation ismusculoskeletal; not CVA Wrist: flexion R 0-64, L 0-45; extension R 0-15, L 0-10 Radial Abduction: R 0-31, L 0-15 MP: WFL PIP: WFL DIP: WFL ROM Comments: Able to form composite fist. - Strength Shoulder: R 5/5, L 4/5 Elbow: R 5/5 , L 4+/5 Forearm: R 5/5 , L 4+/5 Per Diem: R 60, L 42 Lateral Pinch: R 18, L 13 Tripod Pinch: R 16, L 13 Tip-to-Tip Pinch: R 10, L 6 - Sensation Thumb: R 3.61, L 3.84 Index: R 2.83, L 3.84 Middle: R 2.83, L 2.83 Ring: R 2.83, L 2.83 Little: R 3.22, L 6.65 + senses input in IF Kinesthesia: Normal - Right, Normal - Left Proprioception: Normal - Right, Normal - Left - Cognitive Skills Follows Directions: Yes - Attention Attention: Normal - Nine Hole Peg Right: 21.25 s Left: 34.88 s - In-Hand Manipulation Finger to Palm Translation: Normal - Right, Severe - Left Palm to Finger Translation: Normal - Right, Severe - Left Shift: Normal - Right, Mild - Left Rotation: Normal - Right, Normal - Left - Stroke Specific Quality of Life Total SS-QOL Score: 114 - Quick DASH-Disab of Arm,Shoulder& Hand Quick DASH Score: 9.0900 - Goals Goal:: Dawson to increase 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 Goal:: Dawson to increase finger dexterity needed to complete self- care fastener manipulation through decreased time of 9 hole pegboard test by d/c. Goal:: Dawson to complete sensory management techniques and sensory re- integration protocol to promote increased sensation of L hand to hold and feeself-care tasks to PLOF needed for ADL/IADL sby d/c . Goal:: Dawson to be (I) in all ADL/IADLS including returning to work to promote increased ability to return to PLOF by d/c. Goal:: Dawson be (i) buttoning standard button on button up shirt 4/5 trials 80% of the time to promote increased (I) by d/c. Goal:: Dawson to complete HEP to promote intrinsic strength and general L UE strength and coordination to promote increased ROM and strength by d/c. - Rehabilitation General Assessment: Kamilla Osman arrived for OT evaluation on this date 06/06/18. He is s/p R sided CVA with L sided weakness. Strength and UB ROM are progressing well but he remains limited with some L hand FMC and dexterity tasks. He is able to form full composite fist but is having increased difficulty with in hand manipulation tasks affecting self-care ability to complete buttons and other FMC related tasks. Skill OT intervention needed to promote increased dexterity, fine motor control, and strength of L hand and UE for self-care to increased QOL and ability to return to PLOF. Rehabilitation Potential: Excellent - Anticipated Interventions Anticipated Interventions: A/AAROM/PROM, Strengthening, Scar Care, Modalities, Joint Protection/Energy Conservation, Ergonomic Education, Dynamic Sitting Balance, Fine Motor Coord/Reinaldo, Neuro Reeducation, ADL Training, Caregiver Training, Home Program - Visit Plan Frequency: 2x /Week Duration: 4 Weeks General Plan: OT to work on strength, in- hand manipulation, B hand coordination, dexterity and ROM to promote increased ability to use L UE at PLOF. TEXT: Thank you for the opportunity to evaluate your patient. For Medicare and Medicare HMO plans, please review the plan of care and approve it. It will need to be FAXED BACK to us at [phone] for Medicare purposes. Please let me know if there are questions or concerns regarding this plan of care. Physician Signature: Date:
--- NOTE | 2018-06-12 14:58 | HP.SP.AD ---
History - History Date of Eval: 06/06/18 Medical Diagnosis (from RX): CVA/Dysphagia Date of Onset of Diagnosis: 05/28/18 Previous speech therapy: Yes Other Relevant Medical History/Diagnoses/Surgery: Benign prostatic hypertrophy (Chronic). Hypertension (Chronic). Stage 3 chronic kidney disease (Chronic). Chronic respiratory failure (Chronic). COPD (chronic obstructive pulmonary disease) (Chronic). Paroxysmal atrial fibrillation (Chronic). DDD (degenerative disc disease) (Chronic). CAD (coronary artery disease) (Chronic). Hx of CABG (Chronic). Myoclonic jerking (Chronic) Medications related to this diagnosis: Allopurinol 100 mg PO DAILY 07/04/16. Ascorbic Acid [Vitamin C] 1,000 mg PO DAILY 07/04/16. Aspirin [Aspirin, Baby] 162 mg PO DAILY@0800 07/04/16. Cholecalciferol (Vitamin D3) [Vitamin D3] 2,000 unit PO DAILY 07/04/16. Colchicine 0.6 mg PO BID PRN 07/04/16. Ipratropium [Atrovent Aerosols] 0.25 mg INHALATION 4X/DAY 07/04/16. Nitroglycerin 0.4 mg SL PRN PRN 07/04/16. Alendronate Sodium [Fosamax] 70 mg PO QWEEK 07/15/17. Baclofen 10 mg PO BID PRN PRN 07/15/17. Albuterol Inhaler [Ventolin Hfa] 2 puff INHALATION Q6H PRN PRN 05/31/18. Hydroxychloroquine Sulfate [Plaquenil] 400 mg PO DAILY 06/01/18. traMADol [Ultram] 50 mg PO QHS PRN 06/01/18. Aspirin [Aspirin, Baby] 81 mg PO DAILY@0800 30 Days #30 tab.chew 06/04/18. Atorvastatin Calcium [Lipitor] 80 mg PO QHS 30 Days #30 tab 06/04/18. Clopidogrel Bisulfate [Plavix] 75 mg PO DAILY 30 Days #30 tab 06/04/18. Metoprolol Succinate 25 mg PO DAILY 30 Days #30 tab.er.24h 06/04/18. Omeprazole [Prilosec] 20 mg PO DAILY 30 Days #30 cap 06/04/18. Pregabalin [Lyrica] 150 mg PO BID 30 Days #60 capsule 06/04/18. Spironolactone [Aldactone] 12.5 mg PO DAILY 30 Days #30 tab 06/04/18. Tamsulosin HCl [Flomax] 0.4 mg PO DAILY 30 Days #30 cap 06/04/18 Smoking Status: Current every day smoker Hx Smoking: Yes Years Smokin Hx Tobacco Use: Yes Hx Smoking Exposure: Yes - Pain Is pain an issue with your current prescribed condition?: Yes - Personal Education History: High school completed. Almost through college. 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 Right Hearing Abillity: Normal Left Hearing Abillity: Normal Visual Assistive Devices: Glasses Patients Living Arrangements: With Family Patient Allergies - Allergies Allergies No Known Allergies Allergy (Verified 05/29/18 07:20) Objective Oral Motor - Oral Status Dentition: Missing Teeth, Upper Dentures - Labial Impairment: WNL Observation at Rest: WNL Closure: WNL Pucker: WNL Retraction: WNL Alternating Pucker/Retraction: WNL - Lingual Impairment: WNL Protrusion: WNL Retraction: WNL Lateralization: WNL Involuntary Movement: No - Jaw Impairment: WNL Opening: WNL Closing: WNL Involuntary Movement: No - Respiratory Status Respiratory Status: Room Air Subjective Dysphagia - Current Diet Solids Current Diet: Mechanical Soft - Current Diet Liquids Current Liquids: [place] Thick Reyez free water Protocol: Yes Objective Dysphagia - Administered by Administered by: Self - [place] Thickened Liquids Administered via: Cup Laryngeal Elevation: WFL Gagging: No Comments: No noted deficits and no s/s of penetration or aspiration. - Mechanical Soft Impaired Mastication: No Laryngeal Elevation: WFL Comments: WFL mastication observed. - Results Swallowing Diagnosis: Dysphagia Unspecified Severity: Mild Dysphagia Assessment - Impact Impact on Safety & Functioning: Risk for Aspiration - Recommendations Modified Barium Swallow/Cookie Swallow Recommended: Yes Swallowing Treatment: Yes - Diet Texture Recommendations Solids Other: Mechanical Soft Liquids: [place] Thick - Safety Saftey Precautions/Swallowing Recommendations (Check all that Apply): Upright Position at Least 30 Minutes After Meals, Small Sips & Bites when Eating Other Impressions - Comments MBS -: A modified barium swallow study was on 06/07/18. There was no aspiration and penetration was ejected from above the vocal folds with thin liquids for sequential sips. Recommended the use of single drinks at a time. Soft diet with thin liquids recommended due to lack of lower dentures. Plan - Plan Plan: No further treatment necessary at this time. The patient is aware of strategies and stated that he wants to return to work as soon as possible. - Recommendations MBS: No Treatment Warranted: No Education - Patient has Indicated that the Following Identified Educational Needs: None The Patient has indicated that they have no educational or learning abilities that may effect their care.: Yes - Patient Instruction Patient Education: Diagnosis, Treatment Plan, Goals Person Taught: Patient Teaching Method: Discussion Response to teaching: Has Prior Knowledge
--- NOTE | 2018-06-29 12:36 | HP.PTEVAL_ITS ---
Patient's Visit Information KAMILLA DICKSON is a 67 year old M referred to Physical Therapy by Chiara Pacheco MD with a diagnosis of Balance problem. Date of Evaluation: 06/29/18 Physical Therapist: Elmer Metz DPT, OCS, CSCS - Visit Plan Frequency: 2x /Week Duration: 4-6 Weeks Plan: 2x/week for 4 weeks to teach home based ex(pt has ankle weights and dumbbells) for: UE strength, LE strength, body weight exercises careful with COPD adn emphasize progression to HEP with list. Pt may eventually want gym ex for silver sneakers depending on return to work status. - Subjective Findings: 05/29/18 stroke as he could not get up. Sister called and squad took to hospital, could walk but something was nto right. Catscan and MRI and showed stroke. Was in hospital for one week then inpatient rehab. WEnt home. Doing pretty good at home. Hand fine motor skills effected on the L. Getting a little better. Saw doctor and wants to work on balance and flexibility. Balance is not great, slightly worse than prior to stroke. No falls other than out of bed initially, just doesn;t feel steady. Might run into door jamb going through door. No visual deficits. NO spinning. No numbneess in legs except neuropathy in both legs. No AD needed but has cane he uses intermittently. Cane for long distances. Sleep is good. Activities at home are limited in fine motor. Has no steps. Hasn't walked outside much. 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 Hobbies include computer whcih he can do. Basic ADLs are OK except for buttoning. Is silver sneaker and wants to do that as exit strategy. - Objective Walks hunched over at wais about 8 degrees, tightness present in hip flexors adn quads hard to get to neutral ext hips and HS minimally. Transfers without UE I. Steps with two rails reciprocally but very SOB after limited by COPD. Does well walking vOR as wella s on FGA and romberg. LE Strength 4-/5 withotu pain without asymmetries. reflexes 2/3 patella and achilles. coordination to reciprocal tap and heel to louie show minor deficits B. sensation to gross light touch WNL, slightly decreased distal in feet. has decent FW weight shift. LB AROM limited in extension but not overly painful, flexiona dn SB are moderately limited without pain today. - Balance Scores Functional Gait Assessment Score: 27 % Disability: 10.0000 CATSIB Score (Max score 120 seconds): 120 - Goals Goal 1:: I approp home based ex for LE strength, posture adn LE stretching to minimize future problems Goal Time Frame: 2-4 Weeks Goal 2:: Pt feel 50% improved in overall condition Goal Time Frame: 2-4 Weeks Goal 3:: Improved LEFS to less than 30% disability. Goal Time Frame: 2-4 Weeks - Rehabilitation Potential Physical Therapy Diagnosis: Sedentarism makes at risk for balacne, health concerns. Rehabilitation Potential: Fair - Anticipated Interventions Patient/Client Instruction: Educate patient on: Condition, Plan of Care For the Purpose of:: To increase ROM, To improve muscle performance and motor function, To improve ability of physical actions for home/community/work/leisure, To improve health and function Therapeutic Exercise to Include: Strength training, Flexibilty training For the Purpose of:: To improve health and function Thank you for the opportunity to evaluate your patient. For Medicare and Medicare HMO plans, please review the plan of care and approve it. It will need to be FAXED BACK to us at [phone] for Medicare purposes. For Medicare only, by signing this I certify the plan of care. Please let me know if there are questions or concerns regarding this plan of care. Physician Signature: Date:
--- NOTE | 2018-07-05 13:04 | HP.OTREVAL ---
Chiara Pacheco MD, It has been my pleasure to treat KAMILLA DICKSON over the last 6 visits for CVA. Please see the progress note below for an update on the occupational therapy plan of care! Subjective: Arrived and noted feels like he is getting stronger. He feels that fine motor skills are getting better at buttoning shorts but still having difficulty with getting hearing aid in. He feels like he is 65%. Objective/Function: Completed reassessment on this date of 07/05/17. 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 Lateral R 18, L 14. Tripod R 16, L 14. Pincer R 10, L 8. Completed monofilament touch test: R 2nd 3.22, 3rd 3.22 4th 3.22, 5th 2.83 , thumb 3.22. L 2nd 3.84 , 3rd 4.31, 4th 2.83 , 5th 5.18 , thumb 3.84. Decreased sensory dispersion patterns. Often senses input in middle finger and not finger in which input was applied. Will continue to address sensory input. Completed 9-hole pegboard test for measuring finger dexterity and FMC: R: 19.55 seconds. L: 32.85 seconds. * needs vision to help compensate for sensory loss of L hand. Would benefit from increased FMC, sensory reintegration, and ADLs. Plan Frequency: 2x /Week Duration: 4 Weeks Visits in this POC: 12-14 Plan: continue POC for 2x weekly appointment for next 4 weeks to address strength and sensory perception and awareness of L hand to promote increased ability to complete ADLS including buttons, fasteners, and other fasteners at this time. Goals - Goals Goal:: Dawson to increase L automotive electrician helper by 10-15 lbs to promote increased strength and ROM of L hand needed for ADL/IADLS by d/c. Goal:: Dawson to increase finger dexterity needed to complete self- care fastener manipulation through decreased time of 9 hole pegboard test by d/c. Goal:: Dawson to complete sensory management techniques and sensory re- integration protocol to promote increased sensation of L hand to hold and feeself-care tasks to PLOF needed for ADL/IADL sby d/c . Goal:: Dawson to be (I) in all ADL/IADLS including returning to work to promote increased ability to return to PLOF by d/c. Goal:: Dawson be (i) buttoning standard button on button up shirt 4/5 trials 80% of the time to promote increased (I) by d/c. Goal:: Dawson to complete HEP to promote intrinsic strength and general L UE strength and coordination to promote increased ROM and strength by d/c. Anticipated Interventions Anticipated Interventions: A/AAROM/PROM, Strengthening, Scar Care, Modalities, Joint Protection/Energy Conservation, Ergonomic Education, Dynamic Sitting Balance, Fine Motor Coord/Reinaldo, Neuro Reeducation, ADL Training, Caregiver Training, Home Program Please do not hesitate to contact me at [phone] by phone or if you have questions or concerns regarding this new plan of care! Sincerely, Susie Weir
--- NOTE | 2018-07-25 10:51 | HP.PTDCSUM ---
HP - PT D/C Summary It has been my pleasure to treat KAMILLA DICKSON under orders from Chiara Pacheco MD, for the diagnosis of Balance problem for a total of 8 visit(s). Discharge Date: 07/25/18 Please see the following information for a summary of their discharge status. - Subjective Subjective: Everything getting better, balance and strength much better. 90% better. Needs to keep up with ex to cotninue to improve. Plans to continue with bike, DB and bands at home and feels comfortable doing so. - Pain BLAT hips & LEs Pain Intensity (Out of 10): 0 - Overall Improvement % Improvement: 90 - Objective Objective/Function: Walking well and trasnferring adn steps easy, limited by SOB due to COPD after 300 feet of ambulation - Goals Goal 1:: I approp home based ex for LE strength, posture adn LE stretching to minimize future problems Goal Progress: Goal Met Goal 2:: Pt feel 50% improved in overall condition Goal Progress: Goal Met Goal 3:: Improved LEFS to less than 30% disability. Goal Progress: Goal Met - Plan Plan: D/C - D/C Information Discharge Comments: Pt doing well and will continue via HEP If there are questions or concerns regarding this patient's physical therapy, please feel free to call me at [phone]. Thank you for the referral of this patient. Sincerely, Elmer Metz, DPT, OCS, CSCS
--- NOTE | 2018-08-08 11:01 | HP.OTDCSUM ---
HP - OT D/C Summary It has been my pleasure to treat KAMILLA DICKSON under orders from Chiara Pacheco MD, for the diagnosis of CVA for a total of 11 visit(s). Please see the following information for a summary of their discharge status. 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 Lateral R 18, L 14. Tripod R 14, L 14. Tip R 10, L 11. Sensory testing with monofilament testing: R 2nd 3.22, 3rd 3.22, 4th 2.83, 5th 2.83 , thumb 3.22. L 2nd 3.84, 3rd 3.84, 4th 3.84, 5th 3.84, thumb 3.84. 9 hole pegboard test: R 25.70, L 30.96 s. Sensation has progressed. Strength has maintained. 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 Goal:: Dawson to increase finger dexterity needed to complete self- care fastener manipulation through decreased time of 9 hole pegboard test by d/c. Goal:: Dawson to complete sensory management techniques and sensory re- integration protocol to promote increased sensation of L hand to hold and feeself-care tasks to PLOF needed for ADL/IADL sby d/c . Goal:: Dawson to be (I) in all ADL/IADLS including returning to work to promote increased ability to return to PLOF by d/c. Goal:: Dawson be (i) buttoning standard button on button up shirt 4/5 trials 80% of the time to promote increased (I) by d/c. Goal:: Dawson to complete HEP to promote intrinsic strength and general L UE strength and coordination to promote increased ROM and strength by d/c. - Plan Plan: Dawson will be d/c'd today as he is completing all self-care and general routine close to PLOF. He is to call with questions or concerns. He has maintained strength over last two weeks and is progressing with sensory reintegration techniques. He is to continue HEP as instructed for strengthening and sensation. - D/C Information If there are questions or concerns regarding this patient's occupational therapy, please fell free to call me at [phone]. Thank you for the referral of this patient. Sincerely, Susie Weir
== END 2018-08-08 19:00 | disposition home or self-care (01) ==
LOC: OT 10:30
PROVIDERS: Family Provider Family Medicine; PCP Family Medicine; Referring Provider Psychiatry & Neurology Neurology; Visit Provider Psychiatry & Neurology Neurology
DX: I69.928 Other speech and language deficits following unspecified cerebrovascular disease (principal)
CPT/HCPCS: 92610; 97110; 97162; 97166; 97168; 97530

== ENCOUNTER 2019-06-12 20:34 | Emergency (ER) | payer MEDICARE, MEDICAID, SELFPAY ==
[2019-06-12 20:34] VITALS: BP 140/77; PULSE 117; RESP 20; TEMP 36.3; O2SAT 88; BMI 25.6
[2019-06-12 20:50] VITALS: PULSE 110; RESP 15; O2SAT 94
--- NOTE | 2019-06-12 20:55 | EKG12_ITS ---
Test Reason : PAIN Blood Pressure : / mmHG Vent. Rate : 096 BPM Atrial Rate : 096 BPM P-R Int : 112 ms QRS Dur : 096 ms QT Int : 322 ms P-R-T Axes : 079 021 -78 degrees QTc Int : 406 ms Sinus rhythm with frequent Premature ventricular complexes Low voltage QRS Abnormal ECG Confirmed by CHRISTIANO VENEGAS, GIO ([id number]), graphics editor ASIF PITT ([id number]) on 06/17/2019 10:35:10 AM Referred By: MAYUR Confirmed By:MADELAINE ALVARADO MD
--- NOTE | 2019-06-12 21:00 | RAD_ITS ---
STUDY: X-RAY CHEST REASON FOR EXAM: Male, 68 years old. PT STATES and quot;I HAVE JERKS and quot; TECHNIQUE: Single AP portable view of the chest. COMPARISON: 05/29/2018 FINDINGS: There is hyperinflation of the lungs consistent with chronic obstructive lung disease (COPD). Lungs are clear. There is no demonstrated pleural abnormality. Sternal cerclage wires are present from a prior sternotomy. Normal mediastinum and katelyn. Normal visualized pulmonary arteries. Normal visualized aortic arch and descending thoracic aorta. Normal visualized thoracic spine. Normal visualized ribs, clavicles, and shoulders. There is no demonstrated abnormality of the visualized soft tissue structures of the upper abdomen. RAD/Chest 1 View (Portable) IMPRESSION: COPD. Lungs are clear. Electronically Signed: Fadi Sloan DO at 21:31 EST Tel , Service support ,
[2019-06-12] MEDS: 0.9% Normal Saline 1,000 ML 150 ML IV (21:25)
[2019-06-12 21:30] LABS: Absolute Lymphocyte Count 1.79 X10^3/uL (0.83-4.51); Absolute Neutrophil Count 4.2 X10^3/uL (2.0-7.7); Basophil# 0.09 X10^3/uL; Basophil% 1.1 % (0-1); Eosinophil# 0.72 X10^3/uL; Eosinophils% 9.2 % (0-5); Hematocrit 36.9 % (40-54); Hemoglobin 11.9 g/dL (13.0-16.5); Lymphocyte # 1.79 X10^3/ul (4.0); Lymphocyte % 22.8 % (19-41); Mean Corp Hgb Conc 32.2 g/dL (32-36); Mean Corpuscular Hgb 30.4 pg (27.0-32.0); Mean Corpuscular Volume 94.1 fL (80-94); Mean Platelet Vol. 10.7 fl (6.2-12.0); Monocyte# 0.99 X10^3/uL; Monocyte% 12.6 % (0-10); NRBC Flagged by Analyzer 0 % (0-5); Neutrophil # 4.24 X10^3/uL (2.7-7.7); Platelet Count 230 K/mm3 (150-450); RBC Distribution Width CV 13.2 % (11.6-14.6); RBC Distribution Width SD 45.3 fl (35.1-43.9); Red Blood Count 3.92 M/mm3 (4.6-6.2); White Blood Count 7.9 K/mm3 (4.4-11.0)
[2019-06-12 21:47] LABS: Anion Gap 2 (5-15); BUN 20 mg/dL (7-18); BUN/Creat Ratio 19.4 RATIO (10-20); Chloride 110 mmol/L (98-107); Creatinine, Serum 1.03 mg/dL (0.70-1.30); EST Glomerular Filtration Rate 76 mL/min (>60); Est Glom Filt Rate - Afr Amer 92 mL/min (>60); Estimated Creatinine Clearance 51.54 ml/min; Glucose 111 mg/dL (74-106); Potassium 3.9 mmol/L (3.5-5.1); Sodium Level 143 mmol/L (136-145)
--- NOTE | 2019-06-12 21:58 | CT_ITS ---
STUDY: CT BRAIN WITHOUT CONTRAST REASON FOR EXAM: Male, 68 years old. MYOCLONIC JERKING,FEELS SPACED,HX COPD,A-FIB,CABG,SKIN CA RADIATION DOSAGE (If Supplied By Facility): CTDIvol = ( 44.99 ) mGy, DLP = ( 897.35 ) mGycm TECHNIQUE: Transaxial CT imaging of the brain was performed without administration of intravenous contrast material. Individualized dose optimization techniques were used for this CT. COMPARISON: CT of the brain May 29, 2018. FINDINGS: Normal soft tissue structures. Normal calvarium. Calcification of cavernous carotids. Normal size ventricles and extra-axial spaces for the patient''s age. Mild periventricular white matter ischemic changes.. Normal basal ganglia and thalami. Normal brainstem. Normal cerebellum. There is no intracranial hemorrhage. Old right parietal lobe infarct. Postsurgical changes of the orbits. Small mucous retention cyst in right maxillary sinus. Minor mucosal thickening of the ethmoid air cells CT/Brain/Head without Contrast IMPRESSION: Mild periventricular white matter ischemic changes and old right parietal lobe infarct. No evidence for acute bleed. If concern for acute infarct MRI recommended Electronically Signed: Neto Griffith MD at 22:22 EST , Service support ,
--- NOTE | 2019-06-12 22:29 | ED.DCSUM_ITS ---
- ER Visit Summary Date of Service: 06/12/19 Chief Complaint: [Myoclonic jerks] History of Present Illness: The patient is a 68 M [presents to the emergency department with complaint of involuntary myoclonic jerks that have been going on for about a week. Patient states that intermittently his arm or leg will jerk. Patient had similar episode 3 years ago that resolved after receiving IV fluids and he thought it was due to dehydration and kidney problems. Patient denies any fever or recent illness. He does have history of COPD and does use home O2 at night. Patient with history of recent stroke last month. Patient has history of CHF and history of A. fib. He is not currently on anticoagulation other than Plavix. No seizure history. No falls or head injuries.] Physical Examination: [HEENT-PERRLA, EOMI. Cranial nerves II through XII grossly intact. TMs clear. Mucous membranes moist. No adenopathy. Cardiovascular-regular rate and rhythm without murmur or ectopy Lungs-clear to auscultation, chest wall stable without crepitus or subcu emphysema Abdomen-normoactive bowel sounds, soft, nontender, no rebound or rigidity, no peritoneal signs. Neuro dgen-ufoepd-ivrg and heel louie testing within normal limits, negative Romberg, negative , Fundi benign. No focal deficits noted. I do not appreciate any abnormal jerking while I am in the room. Extremities-intact ?4, normal range of motion, normal pulses, atraumatic] Test Results: [CT scan of the brain without contrast was unremarkable. EKG obtained arrival shows sinus rhythm with a ventricular rate of 96 bpm with occasional PVCs and nonspecific ST changes. CBC with differential showed a white count 7.9, hemoglobin 11.9, hematocrit 37, platelets 230. Demonstrates unremarkable. Troponin less than 0.015. Chest x-ray showed COPD otherwise clear lungs.] Emergency Department Course and Treatment: [Patient was placed on 2 L nasal cannula O2 on arrival. Patient was placed on a manager cardiac cath.] Treatment Plan: [Follow-up with primary care physician in 3 to 5 days.] Disposition: [Discharged home in stable condition] Impression: [Myoclonic jerking by history-etiology uncertain] This note was generated with [employer] dictation software. It may contain incorrect words, spelling, and punctuation that were not noted in review of the chart prior to signing ED Disposition - Plan for ED Patient: Referrals: Neto Ku MD [Primary Care Provider] -
--- NOTE | 2019-06-12 22:33 | ED.DEP ---
ED Disposition - Plan for ED Patient: Referrals: Neto Ku MD [Primary Care Provider] - Additional Instructions: Reason for myoclonic jerking is unclear
[2019-06-12 22:38] LABS: BNP,B-Type NATRIURETIC PEPTIDE 192.5 pg/mL (0-100)
[2019-06-12 23:10] VITALS: BP 128/61; PULSE 83; RESP 16; O2SAT 98
== END 2019-06-12 23:12 | disposition home or self-care (01) ==
LOC: ED 21:21
PROVIDERS: Emergency Provider Emergency Medicine; PCP Family Medicine
DX: G25.3 Myoclonus (principal); I49.3 Ventricular premature depolarization; J44.9 Chronic obstructive pulmonary disease, unspecified; I11.0 Hypertensive heart disease with heart failure; I50.9 Heart failure, unspecified; I48.91 Unspecified atrial fibrillation; I25.10 Atherosclerotic heart disease of native coronary artery without angina pectoris; N40.0 Benign prostatic hyperplasia without lower urinary tract symptoms; Z86.73 Personal history of transient ischemic attack (TIA), and cerebral infarction without residual deficits; Z95.1 Presence of aortocoronary bypass graft; Z99.81 Dependence on supplemental oxygen; Z79.02 Long term (current) use of antithrombotics/antiplatelets; Z79.899 Other long term (current) drug therapy; Z72.0 Tobacco use
CPT/HCPCS: 70450; 71045; 80048; 83880; 84484; 85025; 93005; 96360; 96361; 99284; J7030

== ENCOUNTER → 2019-08-01 06:44 | Outpatient (CLI) | payer MEDICARE, MEDICAID, SELFPAY ==
[2019-06-19 09:00] VITALS: BMI 26.9
--- NOTE | 2019-08-01 09:53 | STRESSREP ---
Stress Test Report Pharmacologic myocardial perfusion stress test. 68-year-old man with a history of chest pain. Stress protocol: Resting EKG demonstrates normal sinus rhythm with a rate of 66 bpm normal intervals are noted resting blood pressure 128/80 mmHg. 0.4 mg of regadenoson was infused per usual protocol followed by rapid intravenous saline flush injection continuous EKG monitoring was performed. The maximum heart rate was 82 bpm which was 54% of maximum predicted heart rate the maximum workload was 1 metabolic equivalent. At rest there were no ST or T wave changes noted to suggest abnormal flow reserve at peak infusion nonspecific ST-T wave changes were noted with no meet the criteria for ischemia. The resting blood pressure was 128/80 with a final blood pressure 128/64. Myocardial perfusion protocol. 12.0 mCi of technetium 99m sestamibi was injected at rest. 0.4 mg of regadenoson was infused per usual protocol. At peak infusion 36.0 mCi of technetium 99m sestamibi was injected stress images were obtained stress and rest images were reconstructed in comparing the short axis vertical long and horizontal long axis. Gated images were also obtained Perfusion SPECT analysis: Review of the stress images demonstrate normal perfusion noted in the septum anterior wall and lateral wall. The basal inferior wall has a medium size defect which is present on the stress and resting images to a similar extent. The above is suggestive of a basal inferior infarct. No areas of ischemia are noted. Gated SPECT analysis: The gated ejection fraction is noted to be 54%. Conclusion: Pharmacologic myocardial perfusion stress test with evidence of basal inferior infarct. Preserved ejection fraction.
== END ==
PROVIDERS: PCP Family Medicine; Referring Provider Internal Medicine Cardiovascular Disease; Visit Provider Internal Medicine Cardiovascular Disease
DX: I25.10 Atherosclerotic heart disease of native coronary artery without angina pectoris (principal); I25.5 Ischemic cardiomyopathy; J44.9 Chronic obstructive pulmonary disease, unspecified; Z95.1 Presence of aortocoronary bypass graft
CPT/HCPCS: 78452; 93017; A9500; A4216; J2785

== ENCOUNTER → 2020-01-06 16:57 | Outpatient (CLI) | payer MEDICARE, MEDICAID, SELFPAY ==
[2019-12-23 09:03] VITALS: BMI 26.2
[2020-01-06 17:53] LABS: Absolute Lymphocyte Count 2.21 X10^3/uL (0.83-4.51); Absolute Neutrophil Count 4.9 X10^3/uL (2.0-7.7); Basophil# 0.09 X10^3/uL; Eosinophil# 0.73 X10^3/uL; Eosinophils% 8.4 % (0-5); Hematocrit 41.6 % (40-54); Hemoglobin 12.9 g/dL (13.0-16.5); Lymphocyte # 2.21 X10^3/ul (4.0); Lymphocyte % 25.3 % (19-41); Mean Corpuscular Hgb 29.7 pg (27.0-32.0); Mean Corpuscular Volume 95.6 fL (80-94); Monocyte# 0.83 X10^3/uL; Monocyte% 9.5 % (0-10); NRBC Flagged by Analyzer 0 % (0-5); Neutrophil # 4.85 X10^3/uL (2.7-7.7); Neutrophil % 55.6 % (47-70); Platelet Count 300 K/mm3 (150-450); RBC Distribution Width CV 13.8 % (11.6-14.6); RBC Distribution Width SD 49.1 fl (35.1-43.9); Red Blood Count 4.35 M/mm3 (4.6-6.2); White Blood Count 8.7 K/mm3 (4.4-11.0)
[2020-01-06 18:43] LABS: Vitamin D,25 Hydroxy 45.2 ng/mL
[2020-01-06 19:10] LABS: ALB/GLOB Ratio 0.8 RATIO (0.9-2.4); AST(SGOT) 36 U/L (15-37); Alanine Aminotransfer ALT/SGPT 30 U/L (16-61); Albumin, Serum 3.5 g/dL (3.2-5.0); Alkaline Phosphatase 106 U/L (45-117); Anion Gap 3 (5-15); BUN 19 mg/dL (7-18); BUN/Creat Ratio 20.8 RATIO (10-20); Calcium,Total 9.3 mg/dL (8.5-10.1); Chloride 107 mmol/L (98-107); Creatinine, Serum 0.92 mg/dL (0.70-1.30); EST Glomerular Filtration Rate 87 mL/min (>60); Est Glom Filt Rate - Afr Amer 105 mL/min (>60); Globulin 4.2 g/dL (2.2-4.2); Glucose 84 mg/dL (74-106); PSA,Total - Annual Screen 0.25 ng/mL (0.00-4.00); Potassium 5.2 mmol/L (3.5-5.1); Protein, Total 7.7 g/dL (6.4-8.2); Sodium Level 140 mmol/L (136-145); Thyroid Stim Hormone (TSH) 1.01 uIU/mL (0.358-3.74); Uric Acid 4.4 mg/dL (3.5-7.2)
== END ==
PROVIDERS: Visit Provider Family Medicine Geriatric Medicine
DX: E55.9 Vitamin D deficiency, unspecified (principal); I10 Essential (primary) hypertension; Z12.5 Encounter for screening for malignant neoplasm of prostate; M10.9 Gout, unspecified
CPT/HCPCS: 36415; 80053; 82306; 84153; 84443; 84550; 85025; G0103

== ENCOUNTER → 2020-01-08 12:22 | Outpatient (CLI) | payer MEDICARE, MEDICAID, SELFPAY ==
[2019-12-23 09:03] VITALS: BMI 26.2
[2020-01-08 12:54] LABS: Anion Gap 4 (5-15); BUN 18 mg/dL (7-18); BUN/Creat Ratio 18.7 RATIO (10-20); Calcium,Total 9.7 mg/dL (8.5-10.1); Chloride 108 mmol/L (98-107); Creatinine, Serum 0.96 mg/dL (0.70-1.30); EST Glomerular Filtration Rate 82 mL/min (>60); Est Glom Filt Rate - Afr Amer 99 mL/min (>60); Glucose 107 mg/dL (74-106); Potassium 4.1 mmol/L (3.5-5.1); Sodium Level 141 mmol/L (136-145)
== END ==
PROVIDERS: PCP Family Medicine Geriatric Medicine; Visit Provider Family Medicine Geriatric Medicine
DX: E87.5 Hyperkalemia (principal)
CPT/HCPCS: 36415; 80048

== ENCOUNTER → 2020-01-14 17:35 | Outpatient (CLI) | payer MEDICARE, MEDICAID, SELFPAY ==
[2019-12-23 09:03] VITALS: BMI 26.2
--- NOTE | 2020-01-14 17:40 | CT_ITS ---
STUDY: LOW DOSE CT LUNG CANCER SCREENING REASON FOR EXAM: Male, 69 years old. 106 pack-year history. Now smokes 4-5 cigarettes per day. RADIATION DOSAGE (If Supplied By Facility): CTDIvol = ( 2.01 ) mGy, DLP = ( 75.75 ) mGycm TECHNIQUE: No contrast was administered. Low dose technique was utilized (average mAS-38 and kVp 120). 1.25 mm axial source images with a slice interval of 1.25-mm were reconstructed in lung windows. 2.5 mm axial source images with a slice interval of 2.5-mm were reconstructed in lung windows. 5.0 mm axial source images with a slice interval of 5.0-mm were reconstructed in soft tissue windows. Nodule measured using lung windows on PACS and/or independent workstation with automated measurement of minimum and maximum diameter. Nodule measurement reported as average diameter rounded to the nearest whole number. Growth is defined as an increase ins size of greater than 1.5 mm. COMPARISON: Chest, 06/12/2019. NODULES: Total lung nodules (excluding granulomas): 0 Emphysema: Marked emphysematous changes lungs. Endobronchial lesion: None Aorta: There is atherosclerotic tortuosity without aneurysm. Coronary arteries: Evidence of CABG procedure. Heart: Normal in size Pulmonary artery: Normal in size Mediastinal nodes: Nonspecific subcentimeter mediastinal lymphadenopathy. Other chest and abdominal findings: Degenerative changes of the thoracic spine. CT/Low Dose CT Lung Screening IMPRESSION: Lung-RADS category 1 - Continue annual screening with LDCT in 12 months. IMPORTANT NOTES FOR USE: ACR Lung-RADS Version 1.0 Assessment Categories Release Date: September 02, 2013 Category: Coded 0-4 bases on nodule(s) with highest degree of suspicion. Negative screen is defined as categories 1 and 2; a positive screen is defined as categories 3 and 4. Category 3 and 4A nodules that are unchanged on interval CT should be coded as category 2, and individuals returned to screening in 12 months. Category 4X: Category 3 or 4 nodules with additional imaging findings that increase the suspicion of lung cancer, such as spiculation, GGN that doubles in size in 1 year, enlarged lymph notes, etc. Category Modifiers: S (significant finding unrelated to lung cancer) and C (prior history of treated lung cancer) may be added to the 0-4 Lung-RADS Electronically Signed: Devonte Orellana DO at 22:18 EDT Tel [phone], Service support ,
== END ==
PROVIDERS: PCP Family Medicine Geriatric Medicine; Referring Provider Family Medicine Geriatric Medicine; Visit Provider Family Medicine Geriatric Medicine
DX: F17.210 Nicotine dependence, cigarettes, uncomplicated (principal)
CPT/HCPCS: G0297

== ENCOUNTER → 2020-04-08 07:12 | Outpatient (CLI) | payer MEDICARE, MEDICAID, SELFPAY ==
[2019-12-23 09:03] VITALS: BMI 26.2
--- NOTE | 2020-04-08 07:27 | MRI_ITS ---
STUDY: MRI LUMBAR SPINE WITHOUT CONTRAST REASON FOR EXAM: Male, 69 years old. back pain into bilateral hips, no known trauma TECHNIQUE: Standardized fat and water weighted pulse sequences were obtained in the sagittal and axial planes. COMPARISON: 03/14/2012 FINDINGS: Lumbar straightening. Levoscoliosis. Conus medullaris terminates normally at the L1-2 level. No acute fracture. No acute dislocation. No acute bone destruction. Chronic T12 vertebral body fracture. No retropulsion. Paraspinal muscle atrophy. Sacrum intact. Normal aorta. Renal cysts. T12-L1: Moderate endplate spondylosis. Shallow disc bulge. Facet joint arthrosis. Normal central canal and bilateral lateral recesses. Neural foraminal narrowing without impingement. L1-2: Moderate endplate spondylosis. Disc bulge with mild/moderate central canal narrowing. Facet joint arthrosis. Lateral recess narrowing without impingement. Neural foraminal narrowing without impingement. L2-3: Moderate endplate spondylosis. Disc bulge, asymmetric to left, with moderate central canal narrowing. Facet joint arthrosis. Left lateral recess narrowing with impingement. Neural foraminal narrowing without impingement. L3-4: Moderate endplate spondylosis. Disc bulge with severe central canal narrowing. Facet joint arthrosis. Bilateral lateral recess narrowing with impingement. Neural foraminal narrowing without impingement. L4-5: Moderate endplate spondylosis. Disc bulge with severe central canal narrowing. Facet joint arthrosis. Bilateral lateral recess narrowing with impingement. Bilateral neural foraminal narrowing with impingement, left greater than right. L5-S1: Moderate endplate spondylosis. Disc bulge with moderate central canal narrowing. Facet joint arthrosis. Bilateral lateral recess narrowing with contact of the descending nerve roots. Bilateral neural foraminal narrowing with impingement. Grade 1 spondylolisthesis. MRI/Spine Lumbar (Routine) IMPRESSION: Multilevel intervertebral disc disease with moderate/severe central canal narrowing at L2-3, L3-4, L4-5 and L5-S1 Multilevel neural foraminal narrowing with impingement at L4-5 and L5-S1 Multilevel lateral recess narrowing with impingement at L2-3, L3-4, L4-5 and L5-S1 Lumbar straightening, levoscoliosis and severe osteoarthritis Chronic T12 vertebral body fracture Electronically Signed: Elmer Hopper DO at 8:12 EST Tel , Service support ,
== END ==
PROVIDERS: PCP Family Medicine Geriatric Medicine; Referring Provider Anesthesiology Pain Medicine; Visit Provider Anesthesiology Pain Medicine
DX: M51.37 Other intervertebral disc degeneration, lumbosacral region (principal)
CPT/HCPCS: 72148

== ENCOUNTER → 2020-04-15 12:18 | Outpatient (CLI) | payer MEDICARE, MEDICAID, SELFPAY ==
[2019-12-23 09:03] VITALS: BMI 26.2
[2020-04-15 13:41] LABS: Absolute Lymphocyte Count 1.73 X10^3/uL (0.83-4.51); Absolute Neutrophil Count 4.4 X10^3/uL (2.0-7.7); Basophil# 0.08 X10^3/uL; Basophil% 1.1 % (0-1); Eosinophil# 0.55 X10^3/uL; Eosinophils% 7.4 % (0-5); Hemoglobin 12.8 g/dL (13.0-16.5); Lymphocyte # 1.73 X10^3/ul (4.0); Lymphocyte % 23.2 % (19-41); Mean Corp Hgb Conc 31.2 g/dL (32-36); Mean Corpuscular Hgb 29.2 pg (27.0-32.0); Mean Corpuscular Volume 93.4 fL (80-94); Mean Platelet Vol. 10.8 fl (6.2-12.0); Monocyte% 9.4 % (0-10); NRBC Flagged by Analyzer 0 % (0-5); Neutrophil # 4.37 X10^3/uL (2.7-7.7); Neutrophil % 58.6 % (47-70); Platelet Count 316 K/mm3 (150-450); RBC Distribution Width CV 13.7 % (11.6-14.6); Red Blood Count 4.39 M/mm3 (4.6-6.2); White Blood Count 7.5 K/mm3 (4.4-11.0)
[2020-04-18 03:06] LABS: Alternaria tenuis 0.71 kU/L (Class II); Ash, White <0.10 kU/L (Class 0); Aspergillus fumigatus <0.10 kU/L (Class 0); Bermuda Grass <0.10 kU/L (Class 0); Birch <0.10 kU/L (Class 0); Black Walnut <0.10 kU/L (Class 0); Cat Hair / Dander,Stand <0.10 kU/L (Class 0); Cedar, Mountain <0.10 kU/L (Class 0); Cladosporium herbarum <0.10 kU/L (Class 0); Cockroach, American 0.13 kU/L (Class 0/I); Cottonwood <0.10 kU/L (Class 0); D farinae Mite 0.28 kU/L (Class 0/I); Dog Epithelia <0.10 kU/L (Class 0); Elm, American White <0.10 kU/L (Class 0); Immunoglobulin E 108 IU/mL (6-495); Maple/Box Elder <0.10 kU/L (Class 0); Mulberry, White <0.10 kU/L (Class 0); Oak, White <0.10 kU/L (Class 0); Pecan <0.10 kU/L (Class 0); Penicillium Notatum <0.10 kU/L (Class 0); Pigweed, Rough <0.10 kU/L (Class 0); Ragweed, Short/Common 0.52 kU/L (Class I); Russian Thistle <0.10 kU/L (Class 0); Sheep Sorrel <0.10 kU/L (Class 0); Sycamore, American <0.10 kU/L (Class 0); Timothy Grass <0.10 kU/L (Class 0)
[2020-04-18 15:52] LABS: Immunoglobulin E 89 IU/mL (6-495); Mouse Urine <0.10 kU/L (Class 0)
== END ==
PROVIDERS: PCP Family Medicine Geriatric Medicine; Visit Provider Internal Medicine Critical Care Medicine
DX: J96.11 Chronic respiratory failure with hypoxia (principal); J44.9 Chronic obstructive pulmonary disease, unspecified
CPT/HCPCS: 36415; 82785; 85025; 86003

== ENCOUNTER → 2020-05-11 10:34 | Outpatient (CLI) | payer MEDICARE, MEDICAID, SELFPAY ==
[2019-12-23 09:03] VITALS: BMI 26.2
--- NOTE | 2020-05-11 15:34 | PFTCOMP_ITS ---
COMPLETE PULMONARY FUNCTION TEST INTERPRETATION Brief HPI: Patient is a 69 year old male, currently under the care of Dr. Christy, who presents to [facility] for complete pulmonary function tests secondary to diagnosis of COPD. Respiratory therapist reports good effort and reproducible results. Interpretation: Forced expiration spirometry shows a very severe large airways obstructive ventilatory defect with an FEV1 of 26% predicted. There is no significant bronchodilator response by strict ATS criteria. Spirograms are of good quality and plateau slowly, indicating slowly emptying areas of the lungs. The respiratory flow volume loop shows decreased expiratory flow rates at all lung volumes consistent with airway obstruction. Lung volumes by body plethysmography show an elevated total lung capacity at 8.1 L, 177% predicted. FRC and RV are elevated out of proportion. Lung volume measurements are consistent with hyperinflation and air-trapping. Diffusion capacity by carbon monoxide is decreased at 62% predicted. The airway resistance is elevated. Compared to previous pulmonary function tests from 09/09/2014, there has been significant worsening in FVC and FEV1 by 23% and 50% respectively. Impression: Irreversible very severe large airways obstructive ventilatory defect, resulting in air trapping with hyperinflation, and a symmetric reduction diffusing capacity, and a pattern consistent with advanced COPD with evidence of progr ession compared to 2015.
== END ==
PROVIDERS: PCP Family Medicine Geriatric Medicine; Referring Provider Internal Medicine Critical Care Medicine; Visit Provider Internal Medicine Critical Care Medicine
DX: J44.9 Chronic obstructive pulmonary disease, unspecified (principal)
CPT/HCPCS: 94060; 94726; 94729

== ENCOUNTER → 2020-05-15 09:50 | Outpatient (CLI) | payer MEDICARE, MEDICAID, SELFPAY ==
[2019-12-23 09:03] VITALS: BMI 26.2
[2020-05-15 10:54] LABS: Erythrocyte Sedimentation Rate 21 mm/hr (0-20)
[2020-05-15 10:55] LABS: Absolute Neutrophil Count 5.9 X10^3/uL (2.0-7.7); Basophil# 0.09 X10^3/uL; Eosinophil# 0.67 X10^3/uL; Eosinophils% 7.3 % (0-5); Hematocrit 45.5 % (40-54); Hemoglobin 14.5 g/dL (13.0-16.5); Lymphocyte % 17.5 % (19-41); Mean Corp Hgb Conc 31.9 g/dL (32-36); Mean Corpuscular Hgb 29.7 pg (27.0-32.0); Mean Corpuscular Volume 93.2 fL (80-94); Mean Platelet Vol. 11.2 fl (6.2-12.0); Monocyte# 0.86 X10^3/uL; Monocyte% 9.4 % (0-10); NRBC Flagged by Analyzer 0 % (0-5); Neutrophil % 64.4 % (47-70); Platelet Count 325 K/mm3 (150-450); RBC Distribution Width CV 13.4 % (11.6-14.6); RBC Distribution Width SD 46.2 fl (35.1-43.9); Red Blood Count 4.88 M/mm3 (4.6-6.2); White Blood Count 9.2 K/mm3 (4.4-11.0)
[2020-05-15 11:18] LABS: Anion Gap 4 (5-15); BUN 15 mg/dL (7-18); BUN/Creat Ratio 17.5 RATIO (10-20); CRP 5.82 mg/L (0.0-3.0); Calcium,Total 9.5 mg/dL (8.5-10.1); Chloride 105 mmol/L (98-107); Creatinine, Serum 0.86 mg/dL (0.70-1.30); EST Glomerular Filtration Rate 93 mL/min (>60); Est Glom Filt Rate - Afr Amer 113 mL/min (>60); Glucose 88 mg/dL (74-106); Potassium 4.6 mmol/L (3.5-5.1); Sodium Level 139 mmol/L (136-145); Uric Acid 4.1 mg/dL (3.5-7.2)
== END ==
PROVIDERS: PCP Family Medicine Geriatric Medicine; Visit Provider Family Medicine Geriatric Medicine
DX: R79.9 Abnormal finding of blood chemistry, unspecified (principal)
CPT/HCPCS: 36415; 80048; 84550; 85025; 85652; 86140

== ENCOUNTER → 2020-05-18 10:57 | Outpatient (CLI) | payer MEDICARE, MEDICAID, SELFPAY ==
[2019-12-23 09:03] VITALS: BMI 26.2
[2020-05-18 13:53] VITALS: PULSE 86; PULSE 88; PULSE 92; PULSE 94; PULSE 95; PULSE 96; PULSE 97; PULSE 98; O2SAT 85; O2SAT 86; O2SAT 89; O2SAT 92; O2SAT 94
--- NOTE | 2020-05-18 13:57 | CPS ---
PATIENT HAS OXYGEN AT HOME PRN AND HS. HE IS UNSURE WHO HIS DME IS. HE WAS PLACED ON ROOM AIR PRIOR TO BEGINNING TEST. SPO2 WAS AT 86% RA SO WALK BEGAN ON 2LPM. INCREASED TO 3LPM FOR SPO2 85% ON 2L. REMAINDER OF WALK TEST DONE ON 3LPM.
--- NOTE | 2020-05-19 09:05 | PCM.PSN.6M ---
PSN 6 Minute Walk Test - 6 Minute Walk Test 6 Minute Walk Test: 6 Minute Walk Test PSN:6-Minute Walk Test Start: 05/18/20 13:52 Freq: Status: Active Protocol: [id number].[id number] Document 05/18/20 13:53 [facility] (Rec: 05/18/20 13:59 [facility] [id number]) 6 Minute Walk Test Date Performed 05/18/20 Time Performed 11:00 Height 5 ft 2 in Weight: 132 lb Weight in Pounds 132.[address]: Dav Christy Assistive device used: None Pre-test Oxygen Delivery Method Room Air Pulse Ox (%) 86 Pulse Rate (60-100 beats/min) 88 Dyspnea Susan Scale (0-10) 1 1st minute Oxygen Flow Rate (L/min) (L/min) 2 Oxygen Delivery Method Nasal Cannula Pulse Ox (%) 89 Pulse Rate (60-100 beats/min) 92 Dyspnea Susan Scale (0-10) 1 Number of Rests Taken 0 2nd minute Oxygen Flow Rate (L/min) (L/min) 2 Oxygen Delivery Method Nasal Cannula Pulse Ox (%) 85 Pulse Rate (60-100 beats/min) 97 Dyspnea Susan Scale (0-10) 1 Number of Rests Taken 1 3rd minute Oxygen Flow Rate (L/min) (L/min) 3 Oxygen Delivery Method Nasal Cannula Pulse Ox (%) 89 Pulse Rate (60-100 beats/min) 98 Dyspnea Susan Scale (0-10) 1 Number of Rests Taken 0 4th minute Oxygen Flow Rate (L/min) (L/min) 3 Oxygen Delivery Method Nasal Cannula Pulse Ox (%) 92 Pulse Rate (60-100 beats/min) 96 Dyspnea Ssuan Scale (0-10) 1 Number of Rests Taken 0 5th minute Oxygen Flow Rate (L/min) (L/min) 3 Oxygen Delivery Method Nasal Cannula Pulse Ox (%) 94 Pulse Rate (60-100 beats/min) 95 Dyspnea Susan Scale (0-10) 1 Number of Rests Taken 0 6th minute Oxygen Flow Rate (L/min) (L/min) 3 Oxygen Delivery Method Nasal Cannula Pulse Ox (%) 94 Pulse Rate (60-100 beats/min) 94 Dyspnea Susan Scale (0-10) 1 Number of Rests Taken 0 Post-test Oxygen Flow Rate (L/min) (L/min) 3 Oxygen Delivery Method Nasal Cannula Pulse Ox (%) 92 Pulse Rate (60-100 beats/min) 86 Dyspnea Susan Scale (0-10) 1 Full Laps Walked 9 Partial Lap, Number of Tiles Walked 17 Total Distance Walked (ft) 548 05/18/20 13:57 Cardiopulmonary Services by Ambreen Giraldo PATIENT HAS OXYGEN AT HOME PRN AND HS. HE IS UNSURE WHO HIS DME IS. HE WAS PLACED ON ROOM AIR PRIOR TO BEGINNING TEST. SPO2 WAS AT 86% RA SO WALK BEGAN ON 2LPM. INCREASED TO 3LPM FOR SPO2 85% ON 2L. REMAINDER OF WALK TEST DONE ON 3LPM. Initialized on 05/18/20 13:57 - END OF NOTE - Interpretation Interpretation: The patient ambulated 548 feet over the course of 6 minutes without any assistive devices. Pretesting oxygen saturation was noted to be 86% on room air. 2 L of oxygen was applied prior to testing. With ambulation, the patria oxygen saturation was 85%, requiring an increase in supplemental oxygen flow rate to 3 L/min with exertion. - Recommendations Recommendations: 2 L/min of supplemental oxygen should be utilized at rest. 3 L/min should be utilized with exertion.
== END ==
PROVIDERS: PCP Family Medicine Geriatric Medicine; Referring Provider Internal Medicine Critical Care Medicine; Visit Provider Internal Medicine Critical Care Medicine
DX: J44.9 Chronic obstructive pulmonary disease, unspecified (principal)
CPT/HCPCS: 94618

== ENCOUNTER 2020-05-26 11:21 | Emergency (ER) | payer MEDICARE, MEDICAID, SELFPAY ==
[2019-12-23 09:03] VITALS: BMI 26.2
[2020-05-26 11:24] VITALS: BP 105/60; PULSE 80; RESP 16; TEMP 35.6; O2SAT 95; BMI 24.7
--- NOTE | 2020-05-26 11:39 | ED.DCSUM_ITS ---
- ER Visit Summary Date of Service: 05/26/20 Chief Complaint: Head injury History of Present Illness: The patient is a 69 M who presents with a head injury that occurred 4 days ago. Patient states he fell out of bed and hit his head. Patient states that he got the bleeding to stop at that time. Patient s tates that today he was trying to change the dressing and it became stuck. Patient states he was unable to remove the dressing. Patient denies any new injuries. Patient describes the pain as dull. Patient states the pain is over the left frontal area. Patient states it is worse with any palpation. Patient denies any loss of consciousness with the fall. Physical Examination: Vital signs are stable. Patient is afebrile. Patient is in no acute distress. Skin is warm dry. There is a superficial abrasion over the left frontal/parietal area. There is no active bleeding noted. There is a dressing in place. There are no lacerations noted. Cranial nerves II through XII are intact. There are no focal motor or sensory deficits noted. Neck is supple. Trachea is midline there is no JVD. Emergency Department Course and Treatment: The dressing was removed. The wound was cleaned. Wound was dressed with bacitracin dressing. Patient was instructed to continue bacitracin dressings. Patient was instructed to follow- up with his primary care physician in 5 to 7 days. Patient understood and was agreeable with the plan. All questions were answered. Disposition: Discharge home Impression: Scalp abrasion This note was generated with [employer] dictation software. It may contain incorrect words, spelling, and punctuation that were not noted in review of the chart prior to signing ED Disposition - Plan for ED Patient: Disposition: Home or Assisted Living Diagnosis: Scalp abrasion Instructions: ED Abrasion Referrals: Jb Melendez Chi, MD [Primary Care Provider] - 5-7 Days
[2020-05-26] MEDS: BACITRACIN 15 GM Tube 1 APPLIC TOPICAL (11:52)
== END 2020-05-26 12:21 | disposition home or self-care (01) ==
LOC: ED 12:20
PROVIDERS: Emergency Provider Emergency Medicine; PCP Family Medicine Geriatric Medicine
DX: S00.01XA Abrasion of scalp, initial encounter (principal); W06.XXXA Fall from bed, initial encounter; Y93.9 Activity, unspecified; Y92.9 Unspecified place or not applicable; J44.9 Chronic obstructive pulmonary disease, unspecified; I48.91 Unspecified atrial fibrillation; M48.00 Spinal stenosis, site unspecified; Z86.73 Personal history of transient ischemic attack (TIA), and cerebral infarction without residual deficits; Z95.1 Presence of aortocoronary bypass graft; Z79.82 Long term (current) use of aspirin; Z79.899 Other long term (current) drug therapy; Z87.891 Personal history of nicotine dependence
CPT/HCPCS: 99283

== ENCOUNTER → 2020-05-29 | Outpatient (CLI) | payer MEDICARE, MEDICAID, SELFPAY ==
[2020-05-26 11:24] VITALS: BMI 24.7
[2020-05-29 14:20] LABS: M R Staph aureus DNA By PCR Negative (Negative); Probe Check PASS; Specimen Processing Control PASS; Staph aureus DNA By PCR NEGATIVE (Negative)
== END | disposition home or self-care (01) ==
LOC: LABSPEC 10:28
PROVIDERS: PCP Family Medicine Geriatric Medicine; Visit Provider Family Medicine Geriatric Medicine
DX: S00.01XA Abrasion of scalp, initial encounter (principal); B95.62 Methicillin resistant Staphylococcus aureus infection as the cause of diseases classified elsewhere
CPT/HCPCS: 87640

== ENCOUNTER → 2020-06-10 09:26 | Outpatient (CLI) | payer MEDICARE, MEDICAID, SELFPAY ==
[2020-05-26 11:24] VITALS: BMI 24.7
[2020-06-10 09:41] VITALS: BP 140/58; PULSE 63; RESP 16; TEMP 35.9; O2SAT 96; BMI 24.7
[2020-06-10] MEDS: Benralizumab 30 MG/ML Syringe SQ (09:57)
[2020-06-10 11:11] VITALS: BP 121/49; PULSE 71; RESP 16; TEMP 36.3; O2SAT 94
== END ==
PROVIDERS: PCP Family Medicine Geriatric Medicine; Referring Provider Internal Medicine Critical Care Medicine; Visit Provider Internal Medicine Critical Care Medicine
DX: J45.50 Severe persistent asthma, uncomplicated (principal)
CPT/HCPCS: 96372; J0517

== ENCOUNTER → 2020-07-06 13:55 | Outpatient (CLI) | payer MEDICARE, MEDICAID, SELFPAY ==
[2020-06-16 11:15] VITALS: BMI 25.6
[2020-07-06 16:19] LABS: Absolute Neutrophil Count 5.5 X10^3/uL (2.0-7.7); Basophil# 0.01 X10^3/uL; Basophil% 0.1 % (0-1); Hematocrit 43.5 % (40-54); Hemoglobin 13.5 g/dL (13.0-16.5); Lymphocyte % 26.1 % (19-41); Mean Corpuscular Hgb 29.8 pg (27.0-32.0); Mean Platelet Vol. 10.4 fl (6.2-12.0); Monocyte# 0.98 X10^3/uL; Monocyte% 11.1 % (0-10); NRBC Flagged by Analyzer 0 % (0-5); Neutrophil # 5.49 X10^3/uL (2.7-7.7); Neutrophil % 62.2 % (47-70); Platelet Count 383 K/mm3 (150-450); RBC Distribution Width CV 14.7 % (11.6-14.6); RBC Distribution Width SD 52.2 fl (35.1-43.9); Red Blood Count 4.53 M/mm3 (4.6-6.2); White Blood Count 8.8 K/mm3 (4.4-11.0)
[2020-07-06 16:37] LABS: Vitamin D,25 Hydroxy 30.6 ng/mL
[2020-07-06 16:46] LABS: ALB/GLOB Ratio 0.8 RATIO (0.9-2.4); AST(SGOT) 29 U/L (15-37); Alanine Aminotransfer ALT/SGPT 38 U/L (16-61); Albumin, Serum 3.4 g/dL (3.2-5.0); Alkaline Phosphatase 121 U/L (45-117); Anion Gap 7 (5-15); BUN 22 mg/dL (7-18); Calcium,Total 9.1 mg/dL (8.5-10.1); Chloride 104 mmol/L (98-107); EST Glomerular Filtration Rate 70 mL/min (>60); Est Glom Filt Rate - Afr Amer 85 mL/min (>60); Globulin 4.1 g/dL (2.2-4.2); Glucose 96 mg/dL (74-106); Potassium 4.3 mmol/L (3.5-5.1); Protein, Total 7.5 g/dL (6.4-8.2); Sodium Level 140 mmol/L (136-145); Thyroid Stim Hormone (TSH) 0.68 uIU/mL (0.358-3.74); Uric Acid 6.4 mg/dL (3.5-7.2)
== END ==
PROVIDERS: PCP Family Medicine Geriatric Medicine; Visit Provider Family Medicine Geriatric Medicine
DX: E55.9 Vitamin D deficiency, unspecified (principal); I10 Essential (primary) hypertension; M10.9 Gout, unspecified
CPT/HCPCS: 36415; 80053; 82306; 84443; 84550; 85025

== ENCOUNTER → 2020-07-08 09:29 | Outpatient (CLI) | payer MEDICARE, MEDICAID, SELFPAY ==
[2020-06-16 11:15] VITALS: BMI 25.6
[2020-07-08 09:42] VITALS: BP 106/54; PULSE 76; RESP 16; TEMP 35.8; O2SAT 94; BMI 23.8
[2020-07-08] MEDS: Benralizumab 30 MG/ML Syringe SQ (09:46)
== END ==
PROVIDERS: PCP Family Medicine Geriatric Medicine; Referring Provider Internal Medicine Critical Care Medicine; Visit Provider Internal Medicine Critical Care Medicine
DX: J45.50 Severe persistent asthma, uncomplicated (principal)
CPT/HCPCS: 96372; J0517

== ENCOUNTER 2020-07-17 13:47 | Observation (INO) | payer MEDICARE, MEDICAID, SELFPAY ==
[2020-07-08 09:42] VITALS: BMI 23.8
[2020-07-17] VITALS (14 sets, daily range): BP systolic 104–138; BP diastolic 51–122; PULSE 67–80; RESP 15–20; TEMP 36.5–36.8; O2SAT 92–98; BMI 23.6; BMI 26.7; BMI 25.5
--- NOTE | 2020-07-17 | CT_ITS ---
We are attempting to reach an attending provider to discuss findings. An addendum with communication details will be sent when the communication is complete. STUDY: CT HEAD STROKE PROTOCOL W/O CONTRAST INJECTION REASON FOR EXAM: Male, 69 years old. Neuro deficit, acute, stroke suspected RADIATION DOSAGE (If Supplied By Facility): CTDIvol = ( ) mGy, DLP = ( ) mGycm TECHNIQUE: Transaxial CT imaging of the brain was performed without administration of intravenous contrast material. Individualized dose optimization techniques were used for this CT. COMPARISON: 06/12/2019 FINDINGS: Normal soft tissue structures. Normal calvarium. There is mild cerebral atrophy with widening of the extra-axial spaces and ventricular dilatation. There are areas of decreased attenuation within the white matter tracts of the supratentorial brain, consistent with microvascular disease changes. There is a stable low-attenuation focus within the right parietal lobe consistent with an old infarct. There is a stable smaller focus of low attenuation within the right occipital lobe system with an old infarct as well. Normal basal ganglia and thalami. Normal brainstem. There is mild cerebellar atrophy. There is no intracranial hemorrhage. There are no findings of an acute ischemic infarction. There are small round low-attenuation foci within the maxillary sinuses consistent with mucous retention cysts or polyps. CT/STROKE Brain/Head without Cont IMPRESSION: Chronic involutional changes of the brain. Small vessel ischemia. 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 Electronically Signed: Krista Whitney MD at 14:19 EST Tel , Service support ,
--- NOTE | 2020-07-17 13:53 | EKG12_ITS ---
Test Reason : STROKE TEAM Blood Pressure : / mmHG Vent. Rate : 070 BPM Atrial Rate : 070 BPM P-R Int : 116 ms QRS Dur : 102 ms QT Int : 414 ms P-R-T Axes : 072 009 003 degrees QTc Int : 447 ms Normal sinus rhythm Low voltage QRS Borderline ECG When compared with ECG of 12-JUN-2019 21:07, Premature ventricular complexes are no longer Present Nonspecific T wave abnormality no longer evident in Anterolateral leads Confirmed by ROB VENEGAS, KHANG ([id number]), video effects editor MORGAN JOSEPH ([id number]) on 07/27/2020 10:57:19 AM Referred By: SINDI Confirmed By:KHANG RIVAS MD
--- NOTE | 2020-07-17 13:54 | CT_ITS ---
STUDY: CTA HEAD AND NECK WITH CONTRAST REASON FOR EXAM: Male, 69 years old. Neuro deficit, acute, stroke suspected RADIATION DOSAGE (If Supplied By Facility): CTDIvol = ( 21.10 ) mGy, DLP = ( 654.28 ) mGycm TECHNIQUE: CT angiography was performed with a multi-detector CT scanner. Data acquisition was obtained from the skull base through the vertex following intravenous administration of IV 100mL Isovue-300. MIP images were reconstructed from the axial data set. Post-processing of the angiographic images was performed, with multiplanar reformation and 3D reconstruction. Individualized dose optimization techniques were used for this CT. COMPARISON: Noncontrast head CT dated 07/17/2020 FINDINGS: Normal bilateral petrous carotid arteries. There is calcified plaque formation of the right cavernous carotid artery, without a cross-sectional luminal stenosis. There is calcified plaque formation of the left cavernous carotid artery, without a cross-sectional luminal stenosis. Normal right A1 segments of the anterior cerebral artery. Normal left A1 segments of the anterior cerebral artery. Normal intact anterior communicating artery (ACOM). Normal bilateral A2 segments of the anterior cerebral arteries. Normal right M1 and M2 segments of the middle cerebral arteries, with a normal M1 bifurcation. Normal left M1 and M2 segments of the middle cerebral arteries, with a normal M1 bifurcation. Normal right posterior communicating artery (PCOM). Normal left posterior communicating artery (PCOM). Normal bilateral vertebral arteries. Normal basilar artery with a normal basilar bifurcation. The visualized bilateral superior cerebellar (SCA) arteries are normal. Normal bilateral P1, P2 and visualized P3 segments of the posterior cerebral arteries. There is no demonstrated aneurysm of the [place]. There is no demonstrated abnormality of the visualized brain. AORTIC ARCH: There is atherosclerotic calcific plaque formation of the aortic arch and great vessels arising from the aortic arch, without a hemodynamically significant stenosis. There is a normal origin of the brachiocephalic, left common carotid, and left subclavian arteries. RIGHT CAROTID ARTERIES: There is atherosclerotic plaque formation of the common carotid artery, but without a hemodynamically significant stenosis. Normal right common carotid bulb. There is mild atherosclerotic plaque formation of the origin of the right internal carotid artery with less than 50% cross sectional diameter stenosis. Normal visualized cervical portion of the right internal carotid artery. Normal origin of the right external carotid artery (ECA). LEFT CAROTID ARTERIES: There is atherosclerotic plaque formation of the common carotid artery with nearly 60% stenosis. There is moderate atherosclerotic plaque formation with moderate narrowing of the carotid bulb. There is moderate atherosclerotic plaque formation of the origin of the left internal carotid artery with an estimated stenosis of 50-69% stenosis. There is moderate atherosclerotic plaque of the proximal left internal carotid artery. Normal origin of the left external carotid artery (ECA). VERTEBRAL ARTERIES: There is enhancement within the bilateral vertebral arteries with a small right vertebral artery, and a dominant left vertebral artery. There are peripheral calcifications of the left vertebral artery. The limited images of the thorax demonstrate bilateral emphysematous changes. CT/STROKE CTA Head AND Neck W/Con IMPRESSION: Bilateral atherosclerosis associated with a 50-69% stenosis of the proximal left internal carotid artery. Emphysema. N.B. : The above information has been verbally conveyed by Krista Whitney MD to Elmer Mortensen on 07/17/2020 14:20:11 (ET). Electronically Signed: Krista Whitney MD at 14:20 EST Tel , Service support ,
--- NOTE | 2020-07-17 13:55 | ED.VIS.STROK ---
History of Present Illness Chief Complaint: Dizziness Detail of Chief Complaint: Dizziness and difficulty walking Informant: Patient, Family Onset: Today Quality and Location: Slurred Speech, Difficulty with Ambulation Onset: Patient noticed the symptoms when he woke up today at 4:30 AM Current Severity: Mild Maximum Severity: Moderate Associated Symptoms: Headache. Negative for: Nausea, Vomiting, Chest Pain Narrative: Patient presents with dizziness that began when he woke up this morning. Patient states he was having difficulty walking. Patient states he was falling towards the left. Family also noticed that the patient has been confused today. Family reports patient did have some slurred speech today. Patient states his symptoms have been constant since 430. Patient's last known well was approximately 2200 hrs. yesterday evening. Patient states he felt fine when he went to bed last night but woke up today with symptoms. Past Medical History - Allergies and Home Meds Allergies/Adverse Reactions: Allergies No Known Allergies Allergy (Verified 07/17/20 13:48) Surgical History: - Smoking Status: Former smoker - Family History Maternal Family History: Family History (Last Reviewed 06/16/20 @ 11:24 by Mary Shelton NP, HIV CTS SPECIALIST-C) Father Colon cancer Family History: Reports: Asthma, - Paternal Family History: Family History (Last Reviewed 06/16/20 @ 11:24 by Mary Shelton NP, HIV CTS SPECIALIST-C) Father Colon cancer Family History: Reports: - Sibling Family History: Family History (Last Reviewed 06/16/20 @ 11:24 by Mary Shelton NP, HIV CTS SPECIALIST-C) Father Colon cancer Family History: Reports: No pertinent history Review of Systems General: Denies: Chills, Fever Eyes: Denies: Visual changes - bilaterally, Blurred Vision - bilaterally ENT: Denies: Rhinorrhea, Sore throat Cardiovascular: Denies: Chest pain, Palpitations Respiratory: Reports: Dyspnea, Cough Gastrointestinal: Denies: Nausea, Vomiting Genitourinary: Denies: Dysuria, Hematuria Musculoskeletal: Denies: Neck pain, Back pain Skin: Denies: Rash, Abscess Neurological: Reports: Headache, Weakness Allergy: Denies: Uticaria, Swelling of the mouth STROKE Inital Vital Signs reviewed: Yes General: Well nourished, Well developed Head: Normocephalic, Atraumatic Eyes: Perrl, EOMI ENT: Moist mucous membranes Neck: Supple, No JVD Cardiovascular: Regular rate, Regular rhythm Respiratory: No distress, CTA bilaterally Abdomen: Soft, Nontender Extremities: Nontender, No edema Skin: Normal color, No rash Neurological: Alert, Oriented x3, Cranial nerves II-XII grossly intact, Normal Strength, Normal Sensation Psychological: Normal affect, Normal Mood Diagnostic/Tx/Re-eval CT scan of the brain was obtained. There is no acute intracranial abnormality. This was interpreted by the radiologist and reviewed by myself. CTA of the head and neck was obtained. There is 50 to 69% stenosis of the proximal left internal carotid artery. There is no acute abnormality. This was interpreted by the radiologist and reviewed by myself. Chest X-Ray - ED: 1 View, Read by ED Physician, Read by Radiologist, Chronic Changes - Rhythm Strip Rhythm Strip: Sinus Rhythm Rate: 70 Ectopy: None - Medical Decision Making Stroke Team Activated: Yes Reviewed Inclusion/Exclusion criteria: Yes Was Patient considered for Endovascular Intervention?: No IV Alteplase (t-PA) Administered: No Stroke team was activated. Patient has a NIH score of 0 at this time. Because his symptoms started approximately 10 hours prior to arrival and his symptoms are not affecting his activities of daily living and are mild, TPA was not administered. EKG was obtained. On my interpretation, there is normal sinus rhythm with a rate of 70. There are no acute ST or T wave changes. CO interval, QRS interval, QT interval within normal limits. [place] was normal. Portable 1 view chest x-ray was obtained. On my interpretation, lung carr are clear. There is normal cardiac silhouette. Bony thorax is normal. There is no acute process noted. Radiologist also interpreted the x-ray and agrees. CBC, basic metabolic profile, PT with INR, and PTT were within normal limits. Troponin was normal. Case was discussed with the hospitalist. She will admit the patient to her service. Patient understood and was agreeable with the plan. All questions were answered. Critical care time (excluding procedures): 30-74 minutes ED Disposition - Plan for ED Patient: Disposition: Acute Care Hospital [facility] Diagnosis: TIA (transient ischemic attack)
[2020-07-17 14:06] LABS: Absolute Neutrophil Count 6.7 X10^3/uL (2.0-7.7); Basophil# 0.03 X10^3/uL; Basophil% 0.3 % (0-1); Hematocrit 46.5 % (40-54); Hemoglobin 14.7 g/dL (13.0-16.5); Lymphocyte % 20.3 % (19-41); Mean Corp Hgb Conc 31.6 g/dL (32-36); Mean Corpuscular Hgb 30.2 pg (27.0-32.0); Mean Corpuscular Volume 95.7 fL (80-94); Mean Platelet Vol. 10.2 fl (6.2-12.0); Monocyte# 1.05 X10^3/uL; Monocyte% 10.6 % (0-10); NRBC Flagged by Analyzer 0 % (0-5); Neutrophil # 6.72 X10^3/uL (2.7-7.7); Neutrophil % 68.2 % (47-70); Platelet Count 355 K/mm3 (150-450); RBC Distribution Width CV 14.9 % (11.6-14.6); RBC Distribution Width SD 52.5 fl (35.1-43.9); Red Blood Count 4.86 M/mm3 (4.6-6.2); White Blood Count 9.9 K/mm3 (4.4-11.0)
[2020-07-17 14:13] LABS: International Normalized Ratio 1.1; Prothrombin Time (Protime)PT. 13.2 SECONDS (11.7-14.9)
[2020-07-17 14:14] LABS: Partial Thromboplast Time 28.2 Seconds (24.1-36.2)
[2020-07-17 14:19] LABS: Anion Gap 6 (5-15); BUN 24 mg/dL (7-18); BUN/Creat Ratio 22.4 RATIO (10-20); Chloride 104 mmol/L (98-107); Creatinine, Serum 1.07 mg/dL (0.70-1.30); EST Glomerular Filtration Rate 72 mL/min (>60); Est Glom Filt Rate - Afr Amer 87 mL/min (>60); Estimated Creatinine Clearance 46.84 ml/min; Glucose 94 mg/dL (74-106); Potassium 4.1 mmol/L (3.5-5.1); Sodium Level 142 mmol/L (136-145)
[2020-07-17 14:26] LABS: Bedside Glucose 112 mg/dL (70-110)
--- NOTE | 2020-07-17 14:51 | RAD_ITS ---
STUDY: X-RAY CHEST REASON FOR EXAM: Male, 69 years old. Neuro deficit, acute, stroke suspected TECHNIQUE: Single frontal view of the chest. COMPARISON: 06/12/2019 FINDINGS: The lungs are hyperinflated. There are bibasilar streaky opacities. Sternal cerclage wires are present from a prior sternotomy. The cardiac silhouette is within normal limits. There is an atrial appendage clip in place. Normal mediastinum and katelyn. Normal visualized pulmonary arteries. Normal visualized aortic arch and descending thoracic aorta. Normal visualized thoracic spine. Normal visualized ribs, clavicles, and shoulders. There is no demonstrated abnormality of the visualized soft tissue structures of the upper abdomen. RAD/Chest 1 View IMPRESSION: Hyperinflated lungs with an appearance suggestive of underlying COPD. Minimal bibasilar atelectasis and/or scarring. Electronically Signed: Krista Whitney MD at 15:06 EST Tel , Service support ,
--- NOTE | 2020-07-17 15:30 | HP.PCM_ITS ---
Problem List (1) TIA (transient ischemic attack) Status: Acute (2) Atherosclerosis of coronary artery of [place] heart without angina pectoris Status: Chronic Qualifiers: Coronary Disease-Associated Artery/Lesion type: [place] artery Qualified Cod e(s): I25.10 - Atherosclerotic heart disease of [place] coronary artery without angina pectoris (3) H/O coronary artery bypass surgery Status: Resolved Comment: CABG x 2 OCAMPO-LAD, SVG-RCA w/ LAAL w/ clip and PVI 01/17/2014 (4) Ischemic cardiomyopathy Status: Chronic (5) Paroxysmal atrial fibrillation Status: Chronic Comment: PVI and LAAL w/ clip 01/2014 (6) Essential (primary) hypertension Status: Chronic (7) Hyperlipidemia Status: Chronic Qualifiers: Hyperlipidemia type: unspecified Qualified Code(s): E78.5 - Hyperlipidemia, unspecified (8) CVA (cerebral vascular accident) Status: Chronic Qualifiers: CVA mechanism: unspecified Qualified Code(s): I63.9 - Cerebral infarction, unspecified Comment: Acute right MCA infarctions per MRI 05/29/18 (9) Left carotid artery stenosis Status: Chronic (10) Peripheral vascular occlusive disease Status: Chronic (11) Nicotine dependence Status: Chronic Qualifiers: Nicotine product type: cigarettes Substance use status: uncomplicated Qualified Code(s): F17.210 - Nicotine dependence, cigarettes, uncomplicated History of Present Illness Date of Admission: 07/17/20 Chief Complaint: Dizziness, headache, imbalance. The patient is a 69 y/o M w/ PMHx: PAF s/p PVI/LAAL w/ clip 2013, CAD s/p CABG x 2 OCAMPO-LAD, SVG-RCA 2013, PVOD, CKD stage III, Ischemic cardiomyopathy, Chronic COPD w/ chronic hypoxic respiratory failure, Hx CVA R MCA 05/2018, HTN, HLD, Carotid disease w/ L sided stenosis, Former tobacco use, History of EtOH abuse sober since 2012 years who presents to the [facility] ED on 07/17/20 with history of onset dizziness as well as difficulty with balance awakening today at approximately 4:30 AM with concurrent headache specifically noting that he has been falling more towards the left and family notes that he has been confused with some slurred speech ongoing with last known well time 2200 the evening pr ior with no symptoms at that time prompting ED presentation for evaluation. NIH 0 currently. Work-up in the ED included T 98, heart rate 79, BP 137/73, respiratory rate 20, 96% on room air, CBC with WC 9.9, hemoglobin 14.7, platelet 355 without marked shift, unremarkable coags, BMP with BUN/: 24/1.07, troponin less than 0.015, CT of the brain with chronic involutional changes with small vessel ischemia with stable focal infarct within the right parietal and right occipital lobes, CTA head and neck with bilateral atherosclerosis associated with a 50-69% stenosis of the proximal left ICA, chronic emphysematous changes noted, EKG with SR without acute evidence of ischemia. Past Medical History Past Medical History (Chronic Problems): Chronic Problems (Last Reviewed 06/16/20 @ 11:24 by Mary Shelton CHARTERED ACCOUNTANT, CHARTERED ACCOUNTANT-C) Atherosclerosis of coronary artery of [place] heart without angina pectoris (Chronic) Ischemic cardiomyopathy (Chronic) Paroxysmal atrial fibrillation (Chronic 2008) PVI and LAAL w/ clip 01/2014 Essential (primary) hypertension (Chronic) Hyperlipidemia (Chronic) CVA (cerebral vascular accident) (Chronic 05/29/18) Acute right MCA infarctions per MRI 05/29/18 Left carotid artery stenosis (Chronic) Peripheral vascular occlusive disease (Chronic) Nicotine dependence (Chronic) Medical History: Medical History (Last Reviewed 06/16/20 @ 11:24 by Mary Shelton CHARTERED ACCOUNTANT, CHARTERED ACCOUNTANT-C) Atherosclerosis of coronary artery of [place] heart without angina pectoris (Chronic) I25.10 Ischemic cardiomyopathy (Chronic) I25.5 Paroxysmal atrial fibrillation (Chronic) Onset Date: 2008 I48.0 PVI and LAAL w/ clip 01/2014 Essential (primary) hypertension (Chronic) I10 Hyperlipidemia (Chronic) E78.5 CVA (cerebral vascular accident) (Chronic) Onset Date: 05/29/18 I63.9 Acute right MCA infarctions per MRI 05/29/18 Left carotid artery stenosis (Chronic) I65.22 Peripheral vascular occlusive disease (Chronic) I73.9 Nicotine dependence (Chronic) F17.200 Benign prostatic hypertrophy N40.0 COPD (chronic obstructive pulmonary disease) J44.9 Chronic respiratory failure J96.10 DDD (degenerative disc disease) [id number] Myoclonic jerking G25.3 Nocturnal hypoxemia G47.34 Osteoarthritis M19.90 Stage 3 chronic kidney disease N18.3 Allergies No Known Allergies Allergy (Verified 07/17/20 13:48) Home Medications: Ambulatory Orders Medication Instructions Recorded Ipratropium [Atrovent Aerosols] 0.25 mg INHALATION 4X/DAY 07/04/16 Nitroglycerin 0.4 mg SL PRN PRN 07/04/16 Alendronate Sodium [Fosamax] 70 mg PO QWEEK 07/15/17 Baclofen 10 mg PO BID PRN PRN 07/15/17 traMADol [Ultram] 50 mg PO QHS PRN 06/01/18 Clopidogrel Bisulfate [Plavix] 75 mg PO DAILY 06/12/19 Ipratropium/Albuterol Respimat 1 puff INHALATION 4X/DAY 06/12/19 [Combivent Respimat Inhal [place]] Loratadine 10 mg PO DAILY 06/12/19 Metoprolol Succinate 25 mg PO DAILY 06/12/19 spironolactone 25 mg tablet 12.5 mg PO DAILY tab 06/17/19 aspirin 81 mg tablet,delayed 81 mg PO DAILY 06/19/19 release pregabalin 150 mg capsule 150 mg PO BID 12/23/19 albuterol sulfate 90 mcg/actuation 2 puff INHALATION Q4H PRN #8.5 g 04/15/20 aerosol inhaler ipratropium 20 mcg-albuterol 100 1 puff INHALATION Q6H 04/15/20 mcg/actuation mist for inhalation fluticasone fur. 100 mcg-umeclid 1 inh INHALATION QDAY #60 ea 06/16/20 62.5 mcg-vilant 25 mcg inhalat.powder Bupropion HCl [Bupropion HCl Sr] 150 mg PO DAILY 07/17/20 Surgical History: Surgical History (Last Reviewed 06/16/20 @ 11:24 by Mary Shelton CHARTERED ACCOUNTANT, CHARTERED ACCOUNTANT-C) H/O coronary artery bypass surgery (Resolved) Onset Date: 01/17/14 Z95.1 CABG x 2 OCAMPO-LAD, SVG-RCA w/ LAAL w/ clip and PVI 01/17/2014 History of carpal tunnel release Z98.890 History of left heart catheterization Onset Date: 07/05/12 Z98.890 History of radiofrequency ablation procedure for cardiac arrhythmia Onset Date: 01/17/14 Z98.890 PVI w/ CANDIDA clip 01/17/2014 Surgical History: - - CABG x2, clip PVI/LAAL concurrently, bilateral carpal tunnel surgeries, right elbow surgery, bilateral cataract surgery. Psychiatric History: Anxiety, Depression Lives: - - Patient notes living with a friend. He regards her is almost a sister. Smoking Status: Former smoker - Patient quit cigarette tobacco usage 05/22/2020, smoking cigarette tobacco usage since he was a teenager and notes he got up to 2 pack/day but toward the end was only smoking 1/2 pack/day. Tobacco Use: Non-smoker Alcohol: Sober - Patient has been sober since 2011. Drugs: None - *Family History Maternal Family History: Family History (Last Reviewed 06/16/20 @ 11:24 by Mary Shelton NP, CHARTERED ACCOUNTANT-C) Father Colon cancer History Items: Asthma - Mother passed age 99. Paternal Family History: Family History (Last Reviewed 06/16/20 @ 11:24 by Mary Shelton NP, CHARTERED ACCOUNTANT-C) Father Colon cancer History Items: Cancer - Father with a history of colon cancer, passed age 88. Sibling Family History: Family History (Last Reviewed 06/16/20 @ 11:24 by Mary Shelton NP, CHARTERED ACCOUNTANT-C) Father Colon cancer History Items: No pertinent history Review of Systems Constitutional: Denies: Chills, Fever, Weight Change HEENT: Reports: Head Aches. Denies: Sinus Congestion, Sinus Drainage Cardiovascular: Denies: Chest Pain, Light Headedness, Palpitations Respiratory: Denies: Cough, Shortness of breath at rest, Sputum production Gastrointestinal: Denies: Abdominal Pain, Nausea, Vomiting Genitourinary: Denies: Dysuria Musculoskeletal: Denies: Joint Pain, Joint Tenderness Skin: Reports: Skin Changes. Denies: Rash, Wounds Neurological: Reports: Balance problems, Change in Speech, Confusion. Denies: Focal weakness, Numbness, Tingling Psychiatric: Reports: Anxiety, Depression. Denies: Homicidal Ideations, Suicidal Ideations Hematologic/ Lymphatic: Reports: Easy Bruising, Easy Bleeding VTE Information - Inpt Only VTE Present on Admission: No VTE Mechan Device Prophylaxis: SCD's VTE Pharm Prophylaxis ordered?: Yes Patient Problems: Active and Suspected Problems (Last Reviewed 06/16/20 @ 11:24 by Mary Shelton NP, CHARTERED ACCOUNTANT-C) TIA (transient ischemic attack) (Acute) Subjective: Patient seated upright in the ED bed, no acute distress, notes he feels as though he is back to his baseline. Objective: Physical Examination: General: awake, alert, oriented x 3 and cooperative, seated upright in the ED bed in no apparent distress. Skin: normal color, turgor, no icterus, cyanosis. HEENT: AT/NC except noted left mid lateral scalp scabbing, EOMI, PERRLA, MMM, speech appropriate, no carotid bruits or JVD noted. Lungs: CTA bilaterally, moderate effort, mild decrease BL bases, no rales, ronchi or wheezing. Heart: Regular rate and rhythm; no gallop, rub audible. Abdomen: soft, NTTP, ND, normal BS, no HSM. Extremities: no cyanosis, clubbing, or edema. Neurological: patient awake, alert, oriented as noted; cognitive function improved, suspect baseline intact; pupils equally reactive to light and accomodation; cranial nerves II-XII grossly normal, moving all 4 extremities, no focal deficits, strength mildly to moderately global decreased likely secondary to aging comorbidities, sensation intact, good nose and [id number] appropriate, negative Babinski. Psychiatric: affect appears normal, no acute evidence of depressive or anxiety feelings. - Physical Exam Vitals/I&O's: Vital Signs Temp Pulse Resp BP Pulse Ox 98 F 72 17 135/60 H 95 07/17/20 14:12 07/17/20 14:30 07/17/20 14:30 07/17/20 14:30 07/17/20 14:30 Oxygen Delivery Method Room Air Weight: 141 lb 12.116 oz Body Mass Index (BMI) 26.7 Finger Stick Blood Glucose 112 Laboratory Results 07/17/20 13:51: WBC 9.9, RBC 4.86, Hgb 14.7, Hct 46.5, MCV 95.7 H, MCH 30.2, MCHC 31.6 L, RDW Std Deviation 52.5 H, RDW Coeff of Sujata 14.9 H, Plt Count 355, MPV 10.2, Immature Gran % (Auto) 0.600, Neut % (Auto) 68.2, Lymph % (Auto) 20.3, [place] % (Auto) 10.6 H, Eos % (Auto) 0.0, Baso % (Auto) 0.3, Absolute Neuts (auto) 6.7, Absolute Lymphs (auto) 2.00, Nucleated RBC % 0 07/17/20 13:51: PT 13.2, INR 1.1, APTT 28.2 07/17/20 13:51: Sodium 142, Potassium 4.1, Chloride 104, Carbon Dioxide 32.0, Anion Gap 6, BUN 24 H, Creatinine 1.07, Estim Creat Clear Calc 46.84, Est GFR (MDRD) Af Amer 87, Est GFR (MDRD) Non-Af 72, BUN/Creatinine Ratio 22.4 H, Glucose 94, Calcium 10.0, Troponin I < 0.015 07/17/20 14:04: POC Glucose 112 H Current Medications Labetalol HCl (Labetalol (Prefilled) 20 Mg/4 Ml) 20 mg IV X1 PRN PRN Reason: Blood Pressure Assessment/Plan All Active Problems (Last Reviewed 06/16/20 @ 11:24 by Mary Shelton CHARTERED ACCOUNTANT, CHARTERED ACCOUNTANT- C) TIA (transient ischemic attack) (Acute) Smoking greater than 40 pack years (Acute) Severe persistent asthma (Acute) H/O coronary artery bypass surgery (Resolved 01/17/14) Aspiration into airway (Resolved) Sepsis (Ruled-out) The patient is a 69 y/o M w/ PMHx: PAF s/p PVI/LAAL w/ clip 2013, CAD s/p CABG x 2 OCAMPO-LAD, SVG-RCA 2013, PVOD, CKD stage III, Ischemic cardiomyopathy, Chronic COPD w/ chronic hypoxic respiratory failure, Hx CVA R MCA 05/2018, HTN, HLD, Carotid disease w/ L sided stenosis, Former tobacco use, History of EtOH abuse sober since 2012 years who presents to the [facility] ED on 07/17/20 with history of onset dizziness as well as difficulty with balance awakening today at approximately 4:30 AM with possibly slurred speech and leaning toward his L side. 1. Dizziness, headache, imbalance concerning for CVA with left-sided carotid disease concerning for CVA/TIA w/ Hx Prior R MCA CVA: CT of the brain with chronic involutional changes with small vessel ischemia with stable focal infarct within the right parietal and right occipital lobes, CTA head and neck with bilateral atherosclerosis associated with a 50-69% stenosis of the proximal left ICA. Will admit to PCU, will obtain MRI Brain, ECHO, PT/OT/Speech/Nutrition evaluation per protocol. Will consult Neurology for evaluation once work-up completed. Will allow permissive HTN, maintain on asa/plavix, add statin w/ AM FLP, fall precautions. Mag, TSH, FLP, HgbA1c requested. Last noted carotid ultrasound 09/13/2018, will request additionally in case decision to involve Dr. Taylor. 2. PAF: Status post PVI/CANDIDA L with clip in 2013 during CABG, not anticoagulated but on aspirin and Plavix, will await neurology input but likely patient will need to be transition to anticoagulant therapy, will await MRI of the brain to avoid any concern for possible conversion, holding patient metoprolol regimen temporarily. 3. CAD, Ischemic cardiomyopathy: CAD s/p CABG x 2 OCAMPO-LAD, SVG-RCA 2013, PVOD, CKD stage III, Ischemic cardiomyopathy, will continue aspirin, Plavix, adding statin, temporarily holding patient metoprolol, spironolactone, not on KHURRAM inhibitor or ARB given permissive hypertension, echocardiogram requested as noted. 4. Hypertension: We will maintain permissive hypertension given acute presentation as noted #1. 5. Hyperlipidemia: We will add statin therapy is not currently listed, FLP in AM. 6. Chronic Kidney Disease Stage III: Admission BUN/Cr 24/1.07, baseline renal function 0.7-1.1, repeat BMP in AM. 7. Chronic COPD with chronic hypoxic respiratory failure: Will maintain on home oxygen supplementation, continue ATC duonebs, PRN albuterol, HOB, IS parameters. 8. Former tobacco use: 05/22/2020 with prior to this ongoing tobacco usage since he been a teenager up to at least 2 pack a day until he started to quit, encourage continued tobacco cessation. 9. Former alcohol abuse: Sober since 2011, encourage continued to sobriety. 10. DVT prophylaxis: SCDs, Lovenox. 11. CODE status: Patient JOSE has passed he notes and it needs updated. He is not sure about his living will. He notes he needs to update it. Discussed CODE status at length including difference between FULL code, DNR-CCA and DNR-CC status. Following discussions about the differences in these status, requested Full Code status. Advanced Care Planning Face to Face Time: 16 minutes. OBSV E&M: 56352 Initial observation care L3 Procedures: 00492 Advncd Care Plan 30 Min
--- NOTE | 2020-07-17 16:46 | ED.RN ---
STROKE/NIHSS ASSESSMENTS CANCELED PER MD. SCORE REMAINS 0.
--- NOTE | 2020-07-17 17:28 | ECHOCS_ITS ---
Reason For Study: CVA Procedure This was a 2D Doppler, Color Flow transthoracic echocardiogram. The study was technically difficult. The study was technically limited. Contrast injection was performed. Exam performed portable in patient room. Left Ventricle Normal LV size. The estimated ejection fraction is 55 %. Diastolic function is indeterminate. inferoseptal hypokinesis. Right Ventricle Normal RV size. Normal systolic function. Atria Normal left atrium. Normal right atrium. No doppler evidence for ASD. Mitral Valve There is no mitral valve stenosis. No mitral valve insufficiency. Tricuspid Valve There is no tricuspid stenosis. Trivial tricuspid valve insufficiency. Unable to estimate RV systolic pressure due to insufficient tricuspid regurgitant envelope. Aortic Valve Trisinus/trileaflet aortic valve. There is no aortic stenosis. No aortic valve insufficiency. Pulmonic Valve There is no pulmonic valvular stenosis. No pulmonic valve insufficiency. Great Vessels Normal aortic root. The inferior vena cava is dilated. Pericardium/Pleural No pericardial effusion. Medication Diluted definity 7ml given slow IV push to enhance endocardial definition. Previously negative bubble study. MMode/2D Measurements & Calculations LVIDd: 4.8 cm IVSd: 0.59 cm Ao root diam: 2.7 cm LVIDs: 3.7 cm LVPWd: 0.91 cm RVDd: 3.7 cm FS: 23.3 % LAV(MOD-bp): 46.5 ml LA A4 area: 19.6 cm2 LA dimension(2D): 3.4 cm LAV(MOD-bp) Indexed: 28.3 ml/m2 LAV(MOD-sp2): 36.0 ml LAV(MOD-sp4): 55.9 ml RA A4 area: 15.9 cm2 Time Measurements MV dec time: 0.15 sec Doppler Measurements & Calculations MV E max carl: 96.3 cm/sec Lat Peak E' Carl: 2.8 cm/sec Med Peak E' Carl: 5.4 cm/sec MV A max carl: 70.7 cm/sec E/E' lat: 34.7 E/E' med: 18.0 MV E/A: 1.4 Ao V2 max: 116.9 cm/sec LV V1 max: 91.5 cm/sec PA V2 max: 78.8 cm/sec Ao max P.5 mmHg LV V1 max P.4 mmHg TR max carl: 280.2 cm/sec TR max P.4 mmHg Interpretation Summary The estimated ejection fraction is 55 %. Diastolic function is indeterminate. inferoseptal hypokinesis The study was technically difficult. Contrast injection was performed. Ordering Physician: Sofía Rhodes Referring Physician: JOSE FRANCISCO GODWIN Performed By: Rebeca Morse, ARNALDO, RVT
--- NOTE | 2020-07-17 17:28 | MRI_ITS ---
STUDY: MRI BRAIN WITHOUT CONTRAST REASON FOR EXAM: Male, 69 years old. CVA TECHNIQUE: Standardized multiplanar fat and water weighted pulse sequences were obtained. COMPARISON: CT of the brain 07/17/2020 FINDINGS: Mild atrophy and periventricular white matter ischemic changes. There is gliosis in the right parietal lobe with ischemic changes. There is also gliosis in the right temporal parietal region also consistent with prior infarct. Chronic ischemic changes within the pontine bodies bilaterally Normal bilateral basal ganglia. Normal thalami. There is no extra-axial fluid accumulation. Normal flow voids within the major intracranial circulation suggesting patency by spin echo criteria. Normal sella turcica, pituitary gland, infundibular stalk, optic chiasm and hypothalamus. Normal tectal plate and pineal gland. Normal midbrain, and medulla. Normal cerebellum. Normal basal cisterns. Normal bilateral temporal bones. Normal bilateral internal auditory canals. Small polyp or retention cyst in right maxillary sinus small polyp or mucous retention cyst in the right maxillary sinus Postsurgical changes of the orbits.. Normal calvarium and skull base. Normal visualized soft tissue structures. Normal visualized upper cervical spine. MRI/Brain without Contrast IMPRESSION: Mild atrophy and periventricular white matter ischemic changes. No evidence for acute infarct Old right temporoparietal infarct and smaller old right parietal infarct Chronic ischemic changes within the thiago bilaterally Electronically Signed: Neto Griffith MD at 20:34 EST , Service support ,
[2020-07-17 18:19] LABS: Magnesium 2.3 mg/dL (1.6-2.6)
[2020-07-17] MEDS: 0.9% Normal Saline 1,000 ML 100 ML IV (18:51)
[2020-07-17] MEDS: Baclofen 10 MG Tablet PO (21:16)
[2020-07-17] MEDS: Atorvastatin Calcium 80 MG Tablet PO (21:17)
[2020-07-17] MEDS: Albuterol 2.5 MG/3 ML VIAL.NEB. INHALATION (21:25)
[2020-07-17] MEDS: Pregabalin 75 MG Capsule 150 MG PO (21:47)
[2020-07-17] MEDS: guaiFENesin 10 ML UDC (200MG/10ML) 20 ML PO (21:47)
[2020-07-18] VITALS (9 sets, daily range): BP systolic 104–127; BP diastolic 54–62; PULSE 67–86; RESP 16–18; TEMP 36.2–36.8; O2SAT 93–99
[2020-07-18] MEDS: Albuterol 2.5 MG/3 ML VIAL.NEB. INHALATION (04:20)
[2020-07-18 05:52] LABS: Absolute Lymphocyte Count 2.08 X10^3/uL (0.83-4.51); Basophil# 0.01 X10^3/uL; Basophil% 0.1 % (0-1); Hemoglobin 12.8 g/dL (13.0-16.5); Lymphocyte # 2.08 X10^3/ul (4.0); Lymphocyte % 25.9 % (19-41); Mean Corp Hgb Conc 31.2 g/dL (32-36); Mean Corpuscular Hgb 30.1 pg (27.0-32.0); Mean Corpuscular Volume 96.5 fL (80-94); Mean Platelet Vol. 10.2 fl (6.2-12.0); Monocyte# 0.91 X10^3/uL; Monocyte% 11.3 % (0-10); NRBC Flagged by Analyzer 0 % (0-5); Neutrophil % 62.3 % (47-70); Platelet Count 286 K/mm3 (150-450); RBC Distribution Width CV 15.2 % (11.6-14.6); RBC Distribution Width SD 53.3 fl (35.1-43.9); Red Blood Count 4.25 M/mm3 (4.6-6.2)
--- NOTE | 2020-07-18 05:55 | EKG12_ITS ---
Test Reason : AM EKG Blood Pressure : / mmHG Vent. Rate : 072 BPM Atrial Rate : 072 BPM P-R Int : 114 ms QRS Dur : 098 ms QT Int : 416 ms P-R-T Axes : 071 -11 -36 degrees QTc Int : 455 ms Normal sinus rhythm Low voltage QRS Borderline ECG When compared with ECG of 17-JUL-2020 14:07, MANUAL COMPARISON REQUIRED, DATA IS UNCONFIRMED Confirmed by ROB VENEGAS, KHANG ([id number]), script editor MORGAN JOSEPH ([id number]) on 07/22/2020 10:20:56 AM Referred By: MIRIAM Confirmed By:KHANG RIVAS MD
[2020-07-18 06:35] LABS: ALB/GLOB Ratio 0.8 RATIO (0.9-2.4); AST(SGOT) 22 U/L (15-37); Alanine Aminotransfer ALT/SGPT 33 U/L (16-61); Albumin, Serum 3.1 g/dL (3.2-5.0); Alkaline Phosphatase 106 U/L (45-117); Anion Gap 6 (5-15); BUN 28 mg/dL (7-18); BUN/Creat Ratio 29.1 RATIO (10-20); Chloride 108 mmol/L (98-107); Cholesterol 150 mg/dL (200); Creatinine, Serum 0.96 mg/dL (0.70-1.30); EST Glomerular Filtration Rate 82 mL/min (>60); Est Glom Filt Rate - Afr Amer 99 mL/min (>60); Estimated Creatinine Clearance 52.21 ml/min; Globulin 3.8 g/dL (2.2-4.2); Glucose 94 mg/dL (74-106); High Density Lipoprotein 83 mg/dL; Potassium 3.9 mmol/L (3.5-5.1); Protein, Total 6.9 g/dL (6.4-8.2); Sodium Level 142 mmol/L (136-145); T4 Free Direct 0.86 ng/dL (0.76-1.46); Thyroid Stim Hormone (TSH) 2.33 uIU/mL (0.358-3.74); Triglycerides 60 mg/dL; Very Low Density Lipoprotein 12 mg/dL (5-40)
[2020-07-18 07:36] LABS: Hemoglobin A1c 5.4 % (3.8-5.6)
[2020-07-18] MEDS: Aspirin E.C. 81 MG Tablet PO (08:22)
[2020-07-18 10:22] LABS: Bacteria 0 SEEN /hpf (None Seen); Mucous, Urine 0 SEEN /hpf (<or=2+); Red Blood Cells-Urine 0 SEEN /hpf (0-5); Squamous Epithelial Cells - UA 0 SEEN /hpf (0-5); White Blood Cells 0 SEEN /hpf (0-5)
[2020-07-18] MEDS: Loratadine 10 MG Tablet PO (10:24)
[2020-07-18] MEDS: buPROPion (SR) 150 MG Tablet.SA PO (10:25)
[2020-07-18] MEDS: Enoxaparin 40 MG/0.4 ML Syringe SC (10:25)
[2020-07-18] MEDS: Clopidogrel Bisulfate 75 MG Tablet PO (10:25)
[2020-07-18] MEDS: Baclofen 10 MG Tablet PO (10:26)
[2020-07-18] MEDS: Pregabalin 75 MG Capsule 150 MG PO (10:28)
--- NOTE | 2020-07-18 10:40 | CASEMGMT ---
As per RN, scan was negative, stroke ruled out. Therefore, PHQ-9 not completed. GILSON Alicia
[2020-07-18 10:53] LABS: Color, Urine Yellow (Yellow); Glucose, Dipstick Normal (Normal); Ketone-Dipstick Negative (Negative); Leukocyte Esterase-Dipstick Negative /ul (Negative); Nitrite-Dipstick Negative (Negative); Occult Blood-Urine Negative /ul (Negative); Protein-Dipstick Negative (Negative); Specific Gravity, Urine 1.015 (1.002-1.030); Urine Bilirubin Dipstick Negative (Negative); Urine Clarity Clear (Clear); Urine Urobilinogen Normal (Normal); Urine pH 6.5 (5.0 - 8.0)
--- NOTE | 2020-07-18 11:57 | DCINST_ITS ---
- Discharge Diagnoses Current Active Problems: Current Active and Chronic Problems (Last Reviewed 06/16/20 @ 11:24 by Mary Shelton HIGH SCHOOL ADMISSIONS REPRESENTATIVE, HIGH SCHOOL ADMISSIONS REPRESENTATIVE-C) Atherosclerosis of coronary artery of [place] heart without angina pectoris (Chronic) Ischemic cardiomyopathy (Chronic) Paroxysmal atrial fibrillation (Chronic 2008) PVI and LAAL w/ clip 01/2014 Essential (primary) hypertension (Chronic) Hyperlipidemia (Chronic) CVA (cerebral vascular accident) (Chronic 05/29/18) Acute right MCA infarctions per MRI 05/29/18 Left carotid artery stenosis (Chronic) Peripheral vascular occlusive disease (Chronic) Nicotine dependence (Chronic) You will use the following diet at home:: Cardiac Discharge Activity: Return to Normal Activity Call your doctor if you observe: Shortness of breath, Dizziness, Fainting spells, Chest pain Allergies/Adverse Reactions: Allergies No Known Allergies Allergy (Verified 07/17/20 13:48) Medications to take at Discharge Nitroglycerin 0.4 mg SL PRN PRN 07/04/16 Baclofen 10 mg PO BID PRN PRN 07/15/17 traMADol [Ultram] 100 mg PO TID PRN PRN 06/01/18 Clopidogrel Bisulfate [Plavix] 75 mg PO DAILY 06/12/19 Loratadine 10 mg PO DAILY 06/12/19 Metoprolol Succinate 25 mg PO DAILY 06/12/19 spironolactone 25 mg tablet 12.5 mg PO DAILY tab 06/17/19 aspirin 81 mg tablet,delayed release 81 mg PO DAILY 06/19/19 pregabalin 150 mg capsule 150 mg PO TID PRN PRN 12/23/19 Allopurinol 100 mg PO DAILY 07/17/20 Bupropion HCl [Bupropion HCl Sr] 150 mg PO DAILY 07/17/20 Fluticasone/Umeclidin/Vilanter [Trelegy Ellipta] 1 inh INHALATION DAILY 07/17/20 Guaifenesin [Mucinex] 600 mg PO BID 07/17/20 Multivit-Min/FA/Lycopen/Lutein [Centrum Silver Tablet] 1 tab PO DAILY 07/17/20 Atorvastatin Calcium 40 mg PO QHS #30 tab 07/18/20 The following prescriptions were given: Atorvastatin Calcium 40 mg PO QHS #30 tab Transmission Status: Pending to [facility] Primary Care Physician: Jb Melendez Chi, MD [Primary Care Provider] - Please follow up with your Primary Care Physician in: 1 Week Test Results: Test results from this visit will be discussed in further detail at your follow- up appointment, if applicable. Please Follow Up With: Chandan Taylor MD - Vascular Surgery When: 2 Weeks Please Follow Up With: Parmjit Osorio MD - Neurology When: 2-4 Weeks Proposed Discharge Date: 07/18/20
--- NOTE | 2020-07-18 13:06 | DS.PCM_ITS ---
<EstivenMadeleine PHOTOGRAPHIC EQUIPMENT ASSEMBLER - Last Filed: 07/18/20 13:28> Discharge Date and Diagnosis Date of Admission: 07/17/20 Date of Discharge: 07/18/20 - Primary Discharge Diagnosis Acute Problems: Active Problems (Last Reviewed 06/16/20 @ 11:24 by Mary Shelton PHOTOGRAPHIC EQUIPMENT ASSEMBLER, PHOTOGRAPHIC EQUIPMENT ASSEMBLER-C) 1. Dizziness, headache-CVA ruled out. 2. Carotid stenosis 3. CAD status post CABG 4. Paroxysmal atrial fibrillation 5. Chronic COPD with chronic hypoxic respiratory failure 6. Chronic kidney disease stage III 7. Hypertension 8. Hyperlipidemia 9. Gout - Secondary Discharge Diagnosis Chronic Problems: Chronic Problems (Last Reviewed 06/16/20 @ 11:24 by Mary Shelton PHOTOGRAPHIC EQUIPMENT ASSEMBLER, PHOTOGRAPHIC EQUIPMENT ASSEMBLER-C) Atherosclerosis of coronary artery of [place] heart without angina pectoris (Chronic) Ischemic cardiomyopathy (Chronic) Paroxysmal atrial fibrillation (Chronic 2008) PVI and LAAL w/ clip 01/2014 Essential (primary) hypertension (Chronic) Hyperlipidemia (Chronic) CVA (cerebral vascular accident) (Chronic 05/29/18) Acute right MCA infarctions per MRI 05/29/18 Left carotid artery stenosis (Chronic) Peripheral vascular occlusive disease (Chronic) Nicotine dependence (Chronic) Hospital Course and Treatment Operations: None Procedures: 2-D Echocardiogram Summary of Care Provided: The patient is a 69 year old M admitted 07/17/2020 due to dizziness, headache. 1. Dizziness, headache-CVA ruled out. Does not appear to have symptoms consistent with TIA. Patient's symptoms have resolved. CTA as noted below. MRI shows no evidence of acute infarct. Patient on aspirin, Plavix. Initiated on statin. Troponin negative. Patient reports ongoing gradual decrease of balance. PT recommending outpatient therapy. Will order if patient is amenable. Follow-up with PCP and neurology 1 to 2 weeks. Echocardiogram completed, report pending at discharge. 2. Carotid stenosis-CTA May 2018 following CVA demonstrated 70% narrowing of the distal left common carotid artery and greater than 70% ostial stenosis of the internal carotid artery. Follow-up carotid ultrasound September 2018 demonstrated right internal carotid artery stenosis 40 to 59%, left common carotid artery 50 to 69% stenosis mid vessel, left internal carotid artery 60 to 79% stenosis. CTA of head and neck on admission shows bilateral atherosclerosis with 50 to 69% stenosis of the proximal left internal carotid artery. Continue aspirin, Plavix, statin. Referred to vascular surgery for outpatient follow-up and surveillance. 3. CAD status post CABG-follows with Dr. Owusu. Continue aspirin, statin, Plavix, metoprolol. 4. Paroxysmal atrial fibrillation-reports he was on anticoagulation in the past but was taken off due to remaining in sinus rhythm. Currently in sinus rhythm. Continue metoprolol. 5. Chronic COPD with chronic hypoxic respiratory failure-patient wears supplemental oxygen at night. Continue home oxygen and inhaler regimen. 6. Chronic kidney disease stage III-stable. 7. Hypertension-stable, continue metoprolol, spironolactone. 8. Hyperlipidemia-continue statin. 9. Gout-continue allopurinol regimen. Patient seen and examined prior to discharge. Physical assessment as noted below. Patient is stable for discharge with follow up recommendations as noted above. This patient was seen by KAI Flores under the supervision of Dr. Nguyen. - Physical Exam Vitals/I&O's: Vital Signs Temp Pulse Resp BP Pulse Ox 97.8 F 75 18 121/60 H 97 07/18/20 09:47 07/18/20 09:47 07/18/20 09:47 07/18/20 09:47 07/18/20 09:47 Oxygen Flow Rate (L/min) 2 Oxygen Delivery Method Room Air Weight: 144 lb 2.917 oz Body Mass Index (BMI) 25.5 Finger Stick Blood Glucose 112 Intake and Output for Last 24 Hours 07/16/20 07/17/20 07/18/20 23:59 23:59 23:59 Intake Total 300 / 300 1200 / 1200 Balance 300 / 300 1200 / 1200 Laboratory Results 07/17/20 13:51: WBC 9.9, RBC 4.86, Hgb 14.7, Hct 46.5, MCV 95.7 H, MCH 30.2, MCHC 31.6 L, RDW Std Deviation 52.5 H, RDW Coeff of Sujata 14.9 H, Plt Count 355, MPV 10.2, Immature Gran % (Auto) 0.600, Neut % (Auto) 68.2, Lymph % (Auto) 20.3, [place] % (Auto) 10.6 H, Eos % (Auto) 0.0, Baso % (Auto) 0.3, Absolute Neuts (auto) 6.7, Absolute Lymphs (auto) 2.00, Nucleated RBC % 0 07/17/20 13:51: PT 13.2, INR 1.1, APTT 28.2 07/17/20 13:51: Sodium 142, Potassium 4.1, Chloride 104, Carbon Dioxide 32.0, Anion Gap 6, BUN 24 H, Creatinine 1.07, Estim Creat Clear Calc 46.84, Est GFR (MDRD) Af Amer 87, Est GFR (MDRD) Non-Af 72, BUN/Creatinine Ratio 22.4 H, Glucose 94, Calcium 10.0, Troponin I < 0.015 07/17/20 13:51: Magnesium 2.3 07/17/20 14:04: POC Glucose 112 H 07/17/20 17:59: Troponin I < 0.015 07/17/20 20:46: Troponin I Cancelled 07/17/20 22:09: Troponin I < 0.015 07/18/20 05:22: WBC 8.0, RBC 4.25 L, Hgb 12.8 L, Hct 41.0, MCV 96.5 H, MCH 30.1, MCHC 31.2 L, RDW Std Deviation 53.3 H, RDW Coeff of Sujata 15.2 H, Plt Count 286, MPV 10.2, Immature Gran % (Auto) 0.400, Neut % (Auto) 62.3, Lymph % (Auto) 25.9, [place] % (Auto) 11.3 H, Eos % (Auto) 0.0, Baso % (Auto) 0.1, Absolute Neuts (auto) 5.0, Absolute Lymphs (auto) 2.08, Nucleated RBC % 0 07/18/20 05:22: Sodium 142, Potassium 3.9, Chloride 108 H, Carbon Dioxide 28.0, Anion Gap 6, BUN 28 H, Creatinine 0.96, Estim Creat Clear Calc 52.21, Est GFR (MDRD) Af Amer 99, Est GFR (MDRD) Non-Af 82, BUN/Creatinine Ratio 29.1 H, Glucose 94, Calcium 9.0, Total Bilirubin 0.30, AST 22, ALT 33, Alkaline Phosphatase 106, Total Protein 6.9, Albumin 3.1 L, Globulin 3.8, Albumin/Globulin Ratio 0.8 L, Triglycerides 60, Cholesterol 150, LDL Cholesterol 55, VLDL Cholesterol 12, HDL Cholesterol 83, TSH 2.33, Free T4 0.86 07/18/20 05:22: Hemoglobin A1c 5.4 07/18/20 09:45: Urine Color Yellow, Urine Clarity Clear, Urine pH 6.5, Ur Specific [place] 1.015, Urine Protein Negative, Urine Glucose (UA) Normal, Urine Ketones Negative, Urine Occult Blood Negative, Urine Nitrite Negative, Urine Bilirubin Negative, Urine Urobilinogen Normal, Ur Leukocyte Esterase Negative, Urine RBC 0 SEEN, Urine WBC 0 SEEN, Ur Squamous Epith Cells 0 SEEN, Urine Bacteria 0 SEEN, Urine Mucus 0 SEEN Current Medications Acetaminophen (Acetaminophen 325 Mg Tablet) 650 mg PO Q6H PRN PRN PRN Reason: Pain Score 1-10/Temp > 100.7 F Al Hydroxide/Mg Hydroxide (Mag Hydrox/Al Hydrox/Simeth 30 Ml Udc) 30 ml PO Q6H PRN PRN PRN Reason: Gastric Burning Albuterol Sulfate (Albuterol 2.5 Mg/3 Ml Vial.Neb.) 2.5 mg INHALATION Q2H PRN PRN PRN Reason: Dyspnea, wheezing Last Admin: 07/18/20 04:20 Dose: 2.5 mg Documented by: Aspirin (Aspirin E.C. 81 Mg Tablet) [facility] Last Admin: 07/18/20 08:22 Dose: 81 mg Documented by: Atorvastatin Calcium (Atorvastatin Calcium 80 Mg Tablet) 80 mg PO QHS [facility] Last Admin: 07/17/20 21:17 Dose: 80 mg Documented by: Baclofen (Baclofen 10 Mg Tablet) 10 mg PO BID PRN PRN Reason: BACK SPASMS/LEG CRAMPS Last Admin: 07/18/20 10:26 Dose: 10 mg Documented by: Bupropion HCl (Bupropion (Sr) 150 Mg Tablet.Sa) 150 mg PO DAILY [facility] Last Admin: 07/18/20 10:25 Dose: 150 mg Documented by: Clopidogrel Bisulfate (Clopidogrel Bisulfate 75 Mg Tablet) 75 mg PO DAILY [facility] Last Admin: 07/18/20 10:25 Dose: 75 mg Documented by: Enoxaparin Sodium (Enoxaparin 40 Mg/0.4 Ml Syringe) 40 mg SC DAILY [facility] Last Admin: 07/18/20 10:25 Dose: 40 mg Documented by: Guaifenesin (Guaifenesin 10 Ml Udc (200mg/10ml)) 20 ml PO Q4H PRN PRN PRN Reason: COUGH Last Admin: 07/17/20 21:47 Dose: 20 ml Documented by: Hydralazine HCl (Hydralazine 20 Mg/Ml Vial) 5 mg IV Q30M PRN PRN Reason: to maintain BP goals Labetalol HCl (Labetalol (Prefilled) 20 Mg/4 Ml) 10 - 20 mg IV Q10M PRN PRN PRN Reason: to Maintain BP Goals Loratadine (Loratadine 10 Mg Tablet) 10 mg PO DAILY [facility] Last Admin: 07/18/20 10:24 Dose: 10 mg Documented by: Magnesium Hydroxide (Magnesium Hydroxide 30 Ml Udc) 30 ml PO DAILY PRN PRN PRN Reason: Constipation Melatonin (Melatonin 3 Mg Tablet) 3 mg PO QHS PRN PRN PRN Reason: INSOMNIA Nitroglycerin (Nitroglycerin (Inpatient Use) 0.4 Mg Tab.Subl) 0.4 mg SL Q5M PRN PRN Reason: CARDIAC/CHEST PAIN Ondansetron HCl (Ondansetron 4 Mg/2 Ml Vial) 4 mg IV Q8H PRN PRN PRN Reason: NAUSEA/VOMITING Pregabalin (Pregabalin 75 Mg Capsule) 150 mg PO BID [facility] Last Admin: 07/18/20 10:28 Dose: 150 mg Documented by: Prochlorperazine Edisylate (Prochlorperazine 10 Mg/2 Ml Vial) 5 mg IV Q4H PRN PRN PRN Reason: Breakthrough Nausea/Vomiting Psyllium Hydrophilic Mucilloid (Psyllium 1 Packet) 1 packet PO DAILY PRN PRN PRN Reason: Constipation Senna/Docusate Sodium (Senna/Docusate Sodium 1 Tablet) 2 tablet PO BID PRN PRN PRN Reason: Constipation Sodium Chloride (0.9% Saline Lock 10 Ml Syringe) 10 - 40 ml IV UD PRN PRN Reason: SALINE FLUSH Throat Lozenges (Benzocaine/Menthol 1 Lozenge) 1 lozenge MUCOUS MEM Q2H PRN PRN PRN Reason: SORE THROAT Tramadol HCl (Tramadol 50 Mg Tablet) 50 mg PO QHS PRN PRN Reason: PAIN Discharge Diet: Low fat/ Low Cholesterol Discharge Activity: Return to Normal Activity Call your doctor if you observe: Shortness of breath, Dizziness, Fainting spells, Chest pain Home Medications: Medications to take at Discharge Nitroglycerin 0.4 mg SL PRN PRN 07/04/16 Baclofen 10 mg PO BID PRN PRN 07/15/17 traMADol [Ultram] 100 mg PO TID PRN PRN 06/01/18 Clopidogrel Bisulfate [Plavix] 75 mg PO DAILY 06/12/19 Loratadine 10 mg PO DAILY 06/12/19 Metoprolol Succinate 25 mg PO DAILY 06/12/19 spironolactone 25 mg tablet 12.5 mg PO DAILY tab 06/17/19 aspirin 81 mg tablet,delayed release 81 mg PO DAILY 06/19/19 pregabalin 150 mg capsule 150 mg PO TID PRN PRN 12/23/19 Allopurinol 100 mg PO DAILY 07/17/20 Bupropion HCl [Bupropion HCl Sr] 150 mg PO DAILY 07/17/20 Fluticasone/Umeclidin/Vilanter [Trelegy Ellipta] 1 inh INHALATION DAILY 07/17/20 Guaifenesin [Mucinex] 600 mg PO BID 07/17/20 Multivit-Min/FA/Lycopen/Lutein [Centrum Silver Tablet] 1 tab PO DAILY 07/17/20 Atorvastatin Calcium 40 mg PO QHS #30 tab 07/18/20 Following Prescriptions Were Given to Patient: Atorvastatin Calcium 40 mg PO QHS #30 tab Transmission Status: Received by [employer] [facility]30 Primary Care Physician: Jb Melendez Chi, MD [Primary Care Provider] - Please follow up with your Primary Care Physician in: 1 Week Please Follow Up With: Chandan Taylor MD - Vascular Surgery When: 2 Weeks Please Follow Up With: Parmjit Osorio MD - Neurology When: 2-4 Weeks Disposition: Home Minutes spent on discharge:: 35 Patient Condition:: Stable Medical Necessity - Tobacco Use Smoking Status: Former smoker Tobacco Use: Cigarettes Meaningful Use Info Meaningful Use Diagnoses (Choose all that apply): None applicable <Marnie Nguyen - Last Filed: 07/18/20 14:41> Discharge Date and Diagnosis - Secondary Discharge Diagnosis Chronic Problems: Chronic Problems (Last Reviewed 06/16/20 @ 11:24 by Mary Shelton PHOTOGRAPHIC EQUIPMENT ASSEMBLER, PHOTOGRAPHIC EQUIPMENT ASSEMBLER-C) Smoking greater than 40 pack years (Chronic) Severe persistent asthma (Chronic) Atherosclerosis of coronary artery of [place] heart without angina pectoris (Chronic) Ischemic cardiomyopathy (Chronic) Paroxysmal atrial fibrillation (Chronic 2008) PVI and LAAL w/ clip 01/2014 Essential (primary) hypertension (Chronic) Hyperlipidemia (Chronic) CVA (cerebral vascular accident) (Chronic 05/29/18) Acute right MCA infarctions per MRI 05/29/18 Left carotid artery stenosis (Chronic) Peripheral vascular occlusive disease (Chronic) Nicotine dependence (Chronic) Hospital Course and Treatment Imaging Results: Diagnostic Data Brain CT 07/17/20 00:00 IMPRESSION: Chronic involutional changes of the brain. Small vessel ischemia. 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 Electronically Signed: Krista Whitney MD at 14:19 EST Tel , Service support , ADDENDUM: 07/17/20 1426 IMPRESSION: Chronic involutional changes of the brain. Small vessel ischemia. 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 N.B. : The above information has been verbally conveyed by Krista Whitney MD to Dr. Elmer Mortensen DO, on 07/17/2020 14:19:58 (ET). Electronically Signed: Krista Whitney MD at 14:19 EST Tel , Service support , Head/Neck CTA 07/17/20 13:54 IMPRESSION: Bilateral atherosclerosis associated with a 50-69% stenosis of the proximal left internal carotid artery. Emphysema. N.B. : The above information has been verbally conveyed by Krista Whitney MD to Elmer Mortensen on 07/17/2020 14:20:11 (ET). Electronically Signed: Krista Whitney MD at 14:20 EST Tel , Service support , ADDENDUM: 07/17/20 1427 IMPRESSION: Bilateral atherosclerosis associated with a 50-69% stenosis of the proximal left internal carotid artery. Emphysema. N.B. : The above information has been verbally conveyed by Krista Whitney MD to Elmer Mortensen on 07/17/2020 14:20:11 (ET). Electronically Signed: Krista Whitney MD at 14:20 EST Tel , Service support , Chest X-Ray 07/17/20 14:51 IMPRESSION: Hyperinflated lungs with an appearance suggestive of underlying COPD. Minimal bibasilar atelectasis and/or scarring. Electronically Signed: Krista Whitney MD at 15:06 EST Tel , Service support , Brain MRI 07/17/20 17:28 IMPRESSION: Mild atrophy and periventricular white matter ischemic changes. No evidence for acute infarct Old right temporoparietal infarct and smaller old right parietal infarct Chronic ischemic changes within the thiago bilaterally Electronically Signed: Neto Griffith MD at 20:34 EST , Service support , Summary of Care Provided: Patient seen by Madeleine QUINN under my supervision The patient is a 69 year old M with an extensive past medical history as outl inekendall who was admitted through the ED on 07/17/2020 with a complaint of dizziness and headache as well as gait imbalance. Family was concerned that he had been falling more towards his left and also had some slurred speech. On admission, CT of the brain was negative for any acute changes and showed small vessel ischemia with stable focal infarct within the right parietal and right occipital lobes and CTA of the head and neck showed bilateral atherosclerosis with 50 to 69% stenosis of the left ICA. MRI of the brain done showed no evidence of acute infarct. Patient was already on aspirin and Plavix and was started on statin. PT OT was also consulted and recommended outpatient therapy. 2D echo done report was pending at time of discharge. He remained stable and was discharged on 07/18/2020. He is to follow-up with his primary care doctor in 1 to 2 weeks. He was also referred to vascular surgery on outpatient basis on account of carotid stenosis. Patient seen and examined prior to discharge. He had no complaints. Review of systems was otherwise negative. Labs and vitals reviewed. Home meds reviewed and reconciled. Rest s per Madeleine Jean-Baptiste PHOTOGRAPHIC EQUIPMENT ASSEMBLER-C's note, which I have reviewed and reconciled. - Physical Exam Vitals/I&O's: Vital Signs Temp Pulse Resp BP Pulse Ox 98.2 F 80 18 127/54 H 97 07/18/20 14:23 07/18/20 14:23 07/18/20 14:23 07/18/20 14:23 07/18/20 14:23 Oxygen Flow Rate (L/min) 2 Oxygen Delivery Method Room Air Weight: 144 lb 2.917 oz Body Mass Index (BMI) 25.5 Finger Stick Blood Glucose 112 Intake and Output for Last 24 Hours 07/16/20 07/17/20 07/18/20 23:59 23:59 23:59 Intake Total 300 / 300 1800 / 1800 Balance 300 / 300 1800 / 1800 Laboratory Results 07/17/20 13:51: Magnesium 2.3 07/17/20 17:59: Troponin I < 0.015 07/17/20 20:46: Troponin I Cancelled 07/17/20 22:09: Troponin I < 0.015 07/18/20 05:22: WBC 8.0, RBC 4.25 L, Hgb 12.8 L, Hct 41.0, MCV 96.5 H, MCH 30.1, MCHC 31.2 L, RDW Std Deviation 53.3 H, RDW Coeff of Sujata 15.2 H, Plt Count 286, MPV 10.2, Immature Gran % (Auto) 0.400, Neut % (Auto) 62.3, Lymph % (Auto) 25.9, [place] % (Auto) 11.3 H, Eos % (Auto) 0.0, Baso % (Auto) 0.1, Absolute Neuts (auto) 5.0, Absolute Lymphs (auto) 2.08, Nucleated RBC % 0 07/18/20 05:22: Sodium 142, Potassium 3.9, Chloride 108 H, Carbon Dioxide 28.0, Anion Gap 6, BUN 28 H, Creatinine 0.96, Estim Creat Clear Calc 52.21, Est GFR (MDRD) Af Amer 99, Est GFR (MDRD) Non-Af 82, BUN/Creatinine Ratio 29.1 H, Glucose 94, Calcium 9.0, Total Bilirubin 0.30, AST 22, ALT 33, Alkaline Phosphatase 106, Total Protein 6.9, Albumin 3.1 L, Globulin 3.8, Albumin/Globulin Ratio 0.8 L, Triglycerides 60, Cholesterol 150, LDL Cholesterol 55, VLDL Cholesterol 12, HDL Cholesterol 83, TSH 2.33, Free T4 0.86 07/18/20 05:22: Hemoglobin A1c 5.4 07/18/20 09:45: Urine Color Yellow, Urine Clarity Clear, Urine pH 6.5, Ur Specific [place] 1.015, Urine Protein Negative, Urine Glucose (UA) Normal, Urine Ketones Negative, Urine Occult Blood Negative, Urine Nitrite Negative, Urine Bilirubin Negative, Urine Urobilinogen Normal, Ur Leukocyte Esterase Negative, Urine RBC 0 SEEN, Urine WBC 0 SEEN, Ur Squamous Epith Cells 0 SEEN, Urine Bacteria 0 SEEN, Urine Mucus 0 SEEN Current Medications Acetaminophen (Acetaminophen 325 Mg Tablet) 650 mg PO Q6H PRN PRN PRN Reason: Pain Score 1-10/Temp > 100.7 F Al Hydroxide/Mg Hydroxide (Mag Hydrox/Al Hydrox/Simeth 30 Ml Udc) 30 ml PO Q6H PRN PRN PRN Reason: Gastric Burning Albuterol Sulfate (Albuterol 2.5 Mg/3 Ml Vial.Neb.) 2.5 mg INHALATION Q2H PRN PRN PRN Reason: Dyspnea, wheezing Last Admin: 07/18/20 04:20 Dose: 2.5 mg Documented by: Aspirin (Aspirin E.C. 81 Mg Tablet) [facility] Last Admin: 07/18/20 08:22 Dose: 81 mg Documented by: Atorvastatin Calcium (Atorvastatin Calcium 80 Mg Tablet) 80 mg PO QHS [facility] Last Admin: 07/17/20 21:17 Dose: 80 mg Documented by: Baclofen (Baclofen 10 Mg Tablet) 10 mg PO BID PRN PRN Reason: BACK SPASMS/LEG CRAMPS Last Admin: 07/18/20 10:26 Dose: 10 mg Documented by: Bupropion HCl (Bupropion (Sr) 150 Mg Tablet.Sa) 150 mg PO DAILY [facility] Last Admin: 07/18/20 10:25 Dose: 150 mg Documented by: Clopidogrel Bisulfate (Clopidogrel Bisulfate 75 Mg Tablet) 75 mg PO DAILY [facility] Last Admin: 07/18/20 10:25 Dose: 75 mg Documented by: Enoxaparin Sodium (Enoxaparin 40 Mg/0.4 Ml Syringe) 40 mg SC DAILY [facility] Last Admin: 07/18/20 10:25 Dose: 40 mg Documented by: Guaifenesin (Guaifenesin 10 Ml Udc (200mg/10ml)) 20 ml PO Q4H PRN PRN PRN Reason: COUGH Last Admin: 07/17/20 21:47 Dose: 20 ml Documented by: Hydralazine HCl (Hydralazine 20 Mg/Ml Vial) 5 mg IV Q30M PRN PRN Reason: to maintain BP goals Labetalol HCl (Labetalol (Prefilled) 20 Mg/4 Ml) 10 - 20 mg IV Q10M PRN PRN PRN Reason: to Maintain BP Goals Loratadine (Loratadine 10 Mg Tablet) 10 mg PO DAILY [facility] Last Admin: 07/18/20 10:24 Dose: 10 mg Documented by: Magnesium Hydroxide (Magnesium Hydroxide 30 Ml Udc) 30 ml PO DAILY PRN PRN PRN Reason: Constipation Melatonin (Melatonin 3 Mg Tablet) 3 mg PO QHS PRN PRN PRN Reason: INSOMNIA Nitroglycerin (Nitroglycerin (Inpatient Use) 0.4 Mg Tab.Subl) 0.4 mg SL Q5M PRN PRN Reason: CARDIAC/CHEST PAIN Ondansetron HCl (Ondansetron 4 Mg/2 Ml Vial) 4 mg IV Q8H PRN PRN PRN Reason: NAUSEA/VOMITING Pregabalin (Pregabalin 75 Mg Capsule) 150 mg PO BID [facility] Last Admin: 07/18/20 10:28 Dose: 150 mg Documented by: Prochlorperazine Edisylate (Prochlorperazine 10 Mg/2 Ml Vial) 5 mg IV Q4H PRN PRN PRN Reason: Breakthrough Nausea/Vomiting Psyllium Hydrophilic Mucilloid (Psyllium 1 Packet) 1 packet PO DAILY PRN PRN PRN Reason: Constipation Senna/Docusate Sodium (Senna/Docusate Sodium 1 Tablet) 2 tablet PO BID PRN PRN PRN Reason: Constipation Sodium Chloride (0.9% Saline Lock 10 Ml Syringe) 10 - 40 ml IV UD PRN PRN Reason: SALINE FLUSH Throat Lozenges (Benzocaine/Menthol 1 Lozenge) 1 lozenge MUCOUS MEM Q2H PRN PRN PRN Reason: SORE THROAT Tramadol HCl (Tramadol 50 Mg Tablet) 50 mg PO QHS PRN PRN Reason: PAIN OBSV E&M: 80110 Observation care discharge
--- NOTE | 2020-07-18 13:44 | NURSING ---
no change from am assessment
== END 2020-07-18 11:57 | disposition home or self-care (01) ==
LOC: ED 15:18 → PCU 16:19
PROVIDERS: Admitting Provider Family Medicine; Emergency Provider Emergency Medicine; PCP Family Medicine Geriatric Medicine; Visit Provider Student in an Organized Health Care Education/Training Program
DX: R42 Dizziness and giddiness (principal); R51.9 Headache, unspecified; I25.10 Atherosclerotic heart disease of native coronary artery without angina pectoris; I48.0 Paroxysmal atrial fibrillation; I12.9 Hypertensive chronic kidney disease with stage 1 through stage 4 chronic kidney disease, or unspecified chronic kidney disease; J44.9 Chronic obstructive pulmonary disease, unspecified; E78.5 Hyperlipidemia, unspecified; J96.11 Chronic respiratory failure with hypoxia; N18.30 Chronic kidney disease, stage 3 unspecified; Z79.899 Other long term (current) drug therapy; Z79.82 Long term (current) use of aspirin; Z79.02 Long term (current) use of antithrombotics/antiplatelets; M10.9 Gout, unspecified; Z87.891 Personal history of nicotine dependence; I25.5 Ischemic cardiomyopathy; N40.0 Benign prostatic hyperplasia without lower urinary tract symptoms; M19.90 Unspecified osteoarthritis, unspecified site; Z95.1 Presence of aortocoronary bypass graft
CPT/HCPCS: 36415; 70450; 70496; 70498; 70551; 71045; 80048; 80053; 80061; 81001; 82962; 83036; 83735; 84439; 84443; 84484; 85025; 85610; 85730; 92610; 93005; 93306; 94640; 94762; 96360; 96361; 96372; 97162; 97166; 97802; 99218; 99251; 99285; J7030; Q9957; Q9967; A4216; C8929; G0378; G0463

== ENCOUNTER → 2020-08-07 10:03 | Outpatient (CLI) | payer MEDICARE, MEDICAID, SELFPAY ==
[2020-06-16 11:15] VITALS: BMI 25.6
[2020-07-27 16:10] VITALS: BMI 25.5
[2020-08-07 10:19] VITALS: BP 108/55; PULSE 77; RESP 16; TEMP 36.3; O2SAT 93; BMI 25.4
[2020-08-07] MEDS: Benralizumab 30 MG/ML Syringe SC (10:22)
== END ==
PROVIDERS: PCP Family Medicine Geriatric Medicine; Referring Provider Internal Medicine Critical Care Medicine; Visit Provider Internal Medicine Critical Care Medicine
DX: J45.50 Severe persistent asthma, uncomplicated (principal)
CPT/HCPCS: 96372; J0517

== ENCOUNTER → 2020-08-12 12:33 | Outpatient (CLI) | payer MEDICARE, MEDICAID, SELFPAY ==
[2020-07-27 16:10] VITALS: BMI 25.5
[2020-08-07 13:51] VITALS: BMI 26.4
--- NOTE | 2020-08-12 12:36 | ART_ITS ---
Reason For Study: PAOD Procedure A bilateral lower extremity continuous wave Doppler with analog waveform analysis and ankle brachial indexes. Left Segmental Pressures Left brachial= 123mmHg. Left posterior tibial artery = 106mmHg. Left dorsalis pedis artery = 126mmHg. Right Segmental Pressures Right brachial= 130mmHg. Right posterior tibial artery = 102mmHg. Right dorsalis pedis artery = 130mmHg. Indices The right ankle brachial index by the posterior tibial artery is 0.78. The right ankle brachial index by the dorsalis pedis is 1.00. The left ankle brachial index by the posterior tibial artery is 0.82. The left ankle brachial index by the dorsalis pedis is 0.97. VL/Ankle Brachial Index Interpretation Summary Biphasic and triphasic Doppler waveforms are noted at ankle level on the right. Biphasic Doppler waveforms are noted at ankle level on the left. Pulse-volume recordings appear satisfactory at ankle and digital level bilaterally. Resting ankle-brachial indices are normal bilate rally. There is no evidence of significant arterial occlusive disease in the lower ext remities bilaterally. However, there is evidence of angiosomal occlusive disease in certain arterial segments. Clinical correlation is advised. Ordering Physician: Jb Melendez Referring Physician: Jb Melendez Chi Performed By: Karie Maritnes RDCS/RVT
--- NOTE | 2020-08-12 12:41 | ART_ITS ---
Reason For Study: PAOD Procedure A bilateral upper extremity continuous wave Doppler with analog waveform analysis and segmental pressures. Left Segmental Pressures Left brachial= 134mmHg. Left radial= 162mmHg. Left ulnar= 161mmHg. Right Segmental Pressures Right brachial= 127mmHg. Right radial= 165mmHg. Right ulnar= 165mmHg. Indices Rt WBI RA: 1.23 Rt WBI UA: 1.23. Lt WBI RA: 1.21 Lt WBI UA: 1.20. VL/Ankle Brachial Index Interpretation Summary Triphasic and biphasic Doppler waveforms are noted at wrist level bilaterally. Pulse-volume recordings appear satisfactory at wrist level bilaterally,and at digital level on the left. Pulse- volume recordings appear diminished at digital level on the right. Wrist-brachi al indices are normal bilaterally. Arterial flow appears normal at wrist level bilaterally, and at digital level o n the left. There is a suggestion that there is occlusive disease at digital level on the right. Cli nical correlation is advised. Ordering Physician: Jb Melendez Referring Physician: Jb Melendez Chi Performed By: Karie Martines RDCS/RVT
== END ==
PROVIDERS: PCP Family Medicine Geriatric Medicine; Referring Provider Family Medicine Geriatric Medicine; Visit Provider Family Medicine Geriatric Medicine
DX: I73.9 Peripheral vascular disease, unspecified (principal)
CPT/HCPCS: 93922

== ENCOUNTER 2020-08-18 10:00 | Outpatient (RCR) | payer MEDICARE, MEDICAID, SELFPAY ==
[2020-07-17 23:54] VITALS: BMI 25.5
--- NOTE | 2020-07-24 16:37 | HP.PTEVAL ---
Patient's Visit Information KAMILLA DICKSON is a 69 year old M referred to Physical Therapy by Dr. Jb Melendez MD with a diagnosis of ATAXIA. Date of Evaluation: 07/23/20 Physical Therapist: Abigail Lopez PT, Cert MDT - Visit Plan Frequency: 2-3x /Week Duration: 4-6 Weeks Plan: GAIT AND BALANCE TRAINING. TRUNK AND ESTEFANY LE ROM, STRETCHING AND STRENGTHENING TO HELP MEET SET GOALS - Subjective Work/Leisure: WORKS FOR [employer] BETWEEN 20 AND 35 HOURS A WEEK. 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 Present symptoms: LOW BACK PAIN, ESTEFANY HIP PAIN AND PAIN DOWN BOTH THIGHS. ALSO HAS HEAD AND NECK PAIN. BALANCE PROBLEMS. Present since: CHRONIC HEAD, NECK AND LOW BACK PAIN. Pain Scale: WORST 9/10, LEAST 1/10. Currently: 06/17. Commenced as a result of: NO APPARENT REASON. Symptoms at onset: LOW BACK. Worse: EXERCISE, BENDING OVER, TOO MUCH WALKING. Better: LYING DOWN, SITTING. Disturbed sleep: RARELY. Previous history/Previous treatment: NO BACK SURGERY. CURRENTLY IN PAIN MGMT. H/O LUMBAR GERMAN'S AND NERVE ABLASION. NO PHYSICAL THERAPY FOR LOW BACK. NO CHIROPRACTOR. LAST LOW BACK INJECTION WAS ABOUT 4 YEARS AGO. SURGICAL CONSULT AT [facility] FOR LUMBAR SPINE. RECOMMENDED SURGERY BUT PATIENT DECLINED DUE TO LONG RECOVERY TIME THAT WOULD BE NEEDED. HAS NOT SEEN A SPECIALIST FOR HIS NECK OTHER THAN PAIN MGMT PER PATIENT REPORT. Coughing/sneezing/straining: NEGATIVE. Gait: TIME AND DISTANCE LIMITED DUE TO LOW BACK PAIN. UNSTEADY. Difficulty initiating urinatin: NO. Accidents: FELL OUT OF BED ABOUT A MONTH AGO AND HIT HIS HEAD - WENT TO HOSPITAL 3 DAYS LATER TO GET THE BANDAGE OFF HIS HEAD THAT HE PUT ON. Unexplained weight loss: NO. Imaging: STUDY: MRI LUMBAR SPINE WITHOUT CONTRAST. REASON FOR EXAM: Male, 69 years old. back pain into bilateral hips, no. known trauma. TECHNIQUE: Standardized fat and water weighted pulse sequences were. obtained in the sagittal and axial planes. COMPARISON: 03/14/2012. . FINDINGS: Lumbar straightening. Levoscoliosis. Conus medullaris terminates normally at the L1-2 level. No acute fracture. No acute dislocation. No acute bone destruction. Chronic T12 vertebral body fracture. No retropulsion. Paraspinal muscle atrophy. Sacrum intact. Normal aorta. Renal cysts. T12-L1: Moderate endplate spondylosis. Shallow disc bulge. Facet joint. arthrosis. Normal central canal and bilateral lateral recesses. Neural. foraminal narrowing without impingement. L1-2: Moderate endplate spondylosis. Disc bulge with mild/moderate. central canal narrowing. Facet joint arthrosis. Lateral recess narrowing. without impingement. Neural foraminal narrowing without impingement. L2-3: Moderate endplate spondylosis. Disc bulge, asymmetric to left, with. moderate central canal narrowing. Facet joint arthrosis. Left lateral. recess narrowing with impingement. Neural foraminal narrowing without. impingement. L3-4: Moderate endplate spondylosis. Disc bulge with severe central canal. narrowing. Facet joint arthrosis. Bilateral lateral recess narrowing with. impingement. Neural foraminal narrowing without impingement. L4-5: Moderate endplate spondylosis. Disc bulge with severe central canal. narrowing. Facet joint arthrosis. Bilateral lateral recess narrowing with. impingement. Bilateral neural foraminal narrowing with impingement, left. greater than right. L5-S1: Moderate endplate spondylosis. Disc bulge with moderate central. canal narrowing. Facet joint arthrosis. Bilateral lateral recess. narrowing with contact of the descending nerve roots. Bilateral neural. foraminal narrowing with impingement. Grade 1 spondylolisthesis. . MRI/Spine Lumbar (Routine). IMPRESSION: . Multilevel intervertebral disc disease with moderate/severe central canal. narrowing at L2-3, L3-4, L4-5 and L5-S1. . Multilevel neural foraminal narrowing with impingement at L4-5 and L5-S1. . Multilevel lateral recess narrowing with impingement at L2-3, L3-4, L4-5. and L5-S1. . Lumbar straightening, levoscoliosis and severe osteoarthritis. . Chronic T12 vertebral body fracture. . Electronically Signed: Elmer Hopper DO. at 8:12 EST. PMH: A-FIB, HTN, CHF, COPD. ON BLOOD THINNER AND PAIN MEDICATION. STROKE MAY 2018 - PATIENT REPORTS FULL RECOVERY OTHER THAN A LITTLE DIFFICULTY WITH L HAND AND FINGERS STILL. CONGENITAL R KNEE DYSPLASIA. Recent major surgery: DOUBLE BYPASS 2013. OTHER: LAST MONDAY AT HOME STARTED TO STUMBLE, STAGGER AND WEAVE WHILE WALKING. PATIENT REPORTS HIS BACK WAS ALSO HURTING. STATES HE WAS DIZZY TOO. STATES HE RELATES HIS STAGGERING TO HIS LOW BACK PROBLEMS. HIS NIECE TOOK HIM TO THE HOSPITAL AND HE WAS ADMITTED ABOUT 24 HOURS. STATES HE HAD A CAT SCAN AND MRI OF HIS HEAD AND FAR HE KNOWS THEY CAME OUT OK. NO NEW STROKE. PATIENT REPORTS THEY RULED OUT STROKE BUT DID NOT DIAGNOSE THE CAUSE OF HIS STAGGERING. STATES THE HOSPITAL RECOMMENDED PT AND A NEURO CONSULT. PATIENT PLANS TO FOLLOW UP WITH DR. SEPULVEDA BECAUSE HE WENT TO HIM FOR HIS STROKE. - Objective Sitting/Standing Posture: POOR. SCOLIOSIS. Other Observations: INDEP GAIT INTO PT WITHOUT ASSISTIVE DEVICE STAGGERING. INDEP TRANSFER SIT TO STAND WITHOUT UE ASSIST. PATIENT IS ABLE TO SLS IN EA LE X APPROX 5 SEC WITHOUT UE ASSIST. Motor deficit: ESTEFANY LE'S GROSSLY 5/5 WITH MMT'ING EX HIPS GRADED 4-/5. Sensory deficit: ESTEFANY LE LIGHT TOUCH SENSATION APPEARS INTACT AND SYMETRICAL. ROM deficit: TIGHT ESTEFANY LE HIP FLEXORS, HS'S AND GASTROC SOLEUS COMPLEX'S. Reflexes: 1/2 ESTEFANY LE'S. Dural Signs: NEGATIVE ESTEFANY LE'S. Lumbar mvmt loss: flex - NIL. ext - CAMILLE. R SG - CAMILLE. L SG - CAMILLE. INCREASED C/O BACK PAIN WITH L SG TESTING. Core strength: POOR. Palpation: TO ACUTE TENDERNESS OF BACK OR HIPS. TREATMENT: NEUROMUSCULAR REEDUCATION - RETRAINING OF MVMT AND POSTURE FOR SITTING, LYING AND STANDING ACTIVITIES. GAIT TRAINING WITH STRAIGHT CANE ON LEVEL SURFACES AND HIGHTLY RECOMMENDED FOR PATIENT SAFETY. - Goals Goal 1:: PATIENT WILL BE INDEP AND SAFE WITH GAIT ON LEVEL SURFACES AND UP AND DOWN STEPS WITH LEAST ASSISTIVE DEVICE Goal Time Frame: 4-6 Weeks Goal 2:: IMPROVE STANDING AND WALKING FUNCTION Goal Time Frame: 4-6 Weeks Goal 3:: PATIENT WILL BE INDEP WITH A HEP FOR CONTINUED IMPROVEMENT ONCE FORMAL PHYSICAL THERAPY CONCLUDES. Goal Time Frame: 4-6 Weeks - Anticipated Interventions Patient/Client Instruction: Educate patient on: Condition, Plan of Care, Risk Factors, Benefits of Fitness Program For the Purpose of:: To improve self management Therapeutic Exercise to Include: Strength training, Balance training, Body mechanics, Postural training, Flexibilty training, Gait and locomotor training, Neuromotor development, Dynamic Lumbar Stabilization For the Purpose of:: To increase ROM, To improve muscle performance and motor function, To increase tolerance to activity/condition/position, To improve ability of physical actions for home/community/work/leisure, To improve gait and locomotor functions Thank you for the opportunity to evaluate your patient. For Medicare and Medicare HMO plans, please review the plan of care and approve it. It will need to be FAXED BACK to us at [phone] for Medicare purposes. For Medicare only, by signing this I certify the plan of care. Please let me know if there are questions or concerns regarding this plan of care. Physician Signature: Date:
--- NOTE | 2020-08-18 10:35 | HP.PTDCSUM ---
It has been my pleasure to treat KAMILLA DICKSON referred by Dr. Jb Melendez MD, with the diagnosis of ATAXIA for a total of 7 visit(s). Discharge Date: 08/18/20 Please see the following information for a summary of their discharge status. Subjective: PATIENT REPORTS HIS WALKING ABILITY AND BALANCE HAVE BOTH IMPROVED SINCE STARTING PT. 80% BETTER. PATIENT REPORTS HE ISN'T STAGGERING AROUND MUCH AND THAT IS THE BIGGEST THING. PAIN MGMT BRANDON'T WITH DR. BOND PENDING TOMORROW FOR MEDICATION CHECK. STATES HE IS NOT PLANNING TO HAVE ANY MORE INJECTIONS BECAUSE THEY HAVE NOT WORKED IN THE PAST. STATES NEUROLOGIST AND ORTHOPEDIC BRANDON'TS PENDING TOO. PATIENT DOES NOT WANT TO HAVE THERAPY FOR HIS NECK UNTIL HE SEES THE SPECIALIST. WANTS TO STOP PT FOR NOW. SEEING DR. CASTAÑEDA NEXT MONTH DUE TO DIFFICULTY SWOLLOWING. PATIENT DENIES HAVING ANY FALLS SINCE STARTING PT. LOW BACK Pain Intensity (Out of 10): 5 NECK PAIN Pain Intensity (Out of 10): 0 R knee Pain Intensity (Out of 10): 0 B hip Pain Intensity (Out of 10): 6 % Improvement: 80 Objective/Function: PATIENT WAS SEEN TODAY FOR RE-ASSESSMENT OF PROGRESS TOWARD THE SET PT GOALS AND THE NEED FOR FURTHER PHYSICAL THERAPY VS READINESS FOR DISCHARGE. PATIENT IS A GOOD CANDIDATE TO CONTINUE PT BASED ON PROGRESS MADE AND ROOM FOR FURTHER IMPROVEMENT BUT HE WANTS TO STOP PT FOR NOW. UPON EXAM TODAY: INDEP GAIT INTO PT WITH STRAIGHT CANE AND LESS STAGGERING. INDEP TRANSFER SIT TO STAND WITHOUT UE ASSIST. PATIENT IS ABLE TO SLS R LE X APPROX 10 SEC WITHOUT UE ASSIST AND L LE X 7 SEC. Timed up and go w/ cane: Trial 1: 10.47 / Trial 2: 7.3 / Trial 3: 7.2 SEC. Motor deficit: ESTEFANY LE'S GROSSLY 5/5 WITH MMT'ING EX HIPS GRADED 4/5. ROM deficit: TIGHT ESTEFANY LE HIP FLEXORS, HS'S AND GASTROC SOLEUS COMPLEX'S. Dural Signs: NEGATIVE ESTEFANY LE'S. Lumbar mvmt loss: flex - NIL. ext - CAMILLE. R SG - CAMILLE. L SG - CAMILLE. INCREASED C/O BACK PAIN WITH L SG TESTING. Core strength: POOR. Palpation: TO ACUTE TENDERNESS OF BACK OR HIPS. Goal 1:: PATIENT WILL BE INDEP AND SAFE WITH GAIT ON LEVEL SURFACES AND UP AND DOWN STEPS WITH LEAST ASSISTIVE DEVICE Goal Progress: Progressing Goal 2:: IMPROVE STANDING AND WALKING FUNCTION Goal Progress: Progressing Goal 3:: PATIENT WILL BE INDEP WITH A HEP FOR CONTINUED IMPROVEMENT ONCE FORMAL PHYSICAL THERAPY CONCLUDES. Goal Progress: Progressing Plan: D/C AT PATIENTS REQUEST. THIS PT STRONGLY ENCOURAGED PATIENT TO MAKE SURE HE HAS THE APPROPRIATE BRANDON'TS SET UP FOR HIS NECK AND TO CALL DR. MELENDEZ IF HE HAS ANY QUESTIONS ABOUT WHO HE SHOULD SEE. PATIENT IS AGREEABLE. If there are questions or concerns regarding this patient's physical therapy, please feel free to call me at [phone]. Thank you for the referral of this patient. Sincerely, Abigail Lopez, PT, Cert MDT
== END 2020-08-18 19:00 | disposition home or self-care (01) ==
LOC: PT 10:00
PROVIDERS: PCP Family Medicine Geriatric Medicine; Referring Provider Family Medicine Geriatric Medicine; Visit Provider Family Medicine Geriatric Medicine
DX: R26.0 Ataxic gait (principal)
CPT/HCPCS: 97110; 97112; 97162; 97164; 97530

== ENCOUNTER → 2020-10-02 09:57 | Outpatient (CLI) | payer MEDICARE, MEDICAID, SELFPAY ==
[2020-07-27 16:10] VITALS: BMI 25.5
[2020-09-17 10:05] VITALS: BMI 27.0
[2020-10-02 10:05] VITALS: BP 137/84; PULSE 94; RESP 18; TEMP 35.6; O2SAT 94; BMI 25.4
[2020-10-02] MEDS: Benralizumab 30 MG/ML Syringe SC (10:21)
[2020-10-02 10:57] VITALS: BP 128/72; PULSE 74; RESP 16
== END ==
PROVIDERS: PCP Family Medicine Geriatric Medicine; Referring Provider Internal Medicine Critical Care Medicine; Visit Provider Internal Medicine Critical Care Medicine
DX: J45.50 Severe persistent asthma, uncomplicated (principal)
CPT/HCPCS: 96372; J0517

== ENCOUNTER → 2020-11-27 11:41 | Outpatient (CLI) | payer MEDICARE, MEDICAID, SELFPAY ==
[2020-09-17 10:05] VITALS: BMI 27.0
[2020-10-02 10:05] VITALS: BMI 25.4
[2020-11-27] MEDS: Benralizumab 30 MG/ML Syringe SC (11:54)
[2020-11-27 12:02] VITALS: BP 115/53; PULSE 84; RESP 18; TEMP 36.1; O2SAT 94; BMI 25.4
--- NOTE | 2020-11-27 12:06 | NURSING ---
pt. declined to stay longer for observation following injection.
== END ==
PROVIDERS: PCP Family Medicine Geriatric Medicine; Referring Provider Internal Medicine Critical Care Medicine; Visit Provider Internal Medicine Critical Care Medicine
DX: J45.50 Severe persistent asthma, uncomplicated (principal)
CPT/HCPCS: 96372; J0517

== ENCOUNTER 2021-01-15 20:13 | Observation (INO) | payer MEDICARE, MEDICAID, SELFPAY ==
[2021-01-15 20:14] VITALS: BP 102/90; PULSE 205; RESP 18; TEMP 36.7; O2SAT 95; BMI 24.7
[2021-01-15] MEDS: Adenosine 6 MG/2 ML Syringe IV (20:29)
[2021-01-15] MEDS: Adenosine 6 MG/2 ML Syringe 12 MG IV (20:32)
--- NOTE | 2021-01-15 20:34 | EDS_ITS ---
HPI History of Present Illness Chief Complaint: Shortness of Breath Informant: patient Narrative Narrative: Patient evidently had been visiting someone in the hospital. He was leaving. He got a sensation in his upper abdomen and lower chest that he describes as hollow. He never had chest pain or pressure. He might have been slightly short of breath. He overall feels good right now. He really did not want to come down. He states the symptoms were mild and he really did not want to be seen. Staff in the hospital convinced him as they were concerned when they felt his pulse. Patient does report having atrial fibrillation back in the late . It sounds like they may have done an ablation. Also, when he had his two-vessel bypass in 2013 it looks like they did a left atrial appendage ligation. He takes metoprolol. No Tikosyn. No sotalol. No other dysrhythmic's. He is on Plavix but no other anticoagulation. He has not been ill recently. [facility] Medical History (Updated 01/15/21 @ 23:[address] Elliot Mcconnell MD) Atherosclerosis of coronary artery of [place] heart without angina pectoris Benign prostatic hypertrophy Chronic respiratory failure COPD (chronic obstructive pulmonary disease) CVA (cerebral vascular accident) (05/29/18) DDD (degenerative disc disease) Essential (primary) hypertension Hyperlipidemia Ischemic cardiomyopathy Left carotid artery stenosis Myoclonic jerking Nicotine dependence Nocturnal hypoxemia Osteoarthritis Paroxysmal atrial fibrillation (2008) Peripheral vascular occlusive disease Stage 3 chronic kidney disease Home Medications nitroglycerin 0.4 mg SL PRN PRN 07/04/16 [History Last Taken Unknown] clopidogrel 75 mg PO DAILY 06/12/19 [History Last Taken 07/17/20] loratadine 10 mg PO DAILY 06/12/19 [History Last Taken 07/17/20] metoprolol succinate 25 mg PO DAILY 06/12/19 [History Last Taken 07/17/20] aspirin 81 mg tablet,delayed release 81 mg PO DAILY 06/19/19 [History Last Taken 07/16/20] allopurinol 100 mg PO DAILY 07/17/20 [History Last Taken 07/17/20] jrzfrspu-xby-LW-lycopen-lutein 1 tab PO DAILY 07/17/20 [History Last Taken 07/17/20] atorvastatin 80 mg tablet 80 mg PO DAILY tab 09/17/20 [History Last Taken Unknown] baclofen 10 mg tablet 10 mg PO TID PRN tab 09/17/20 [History Last Taken Unknown] bupropion HCl (smoking deter) 150 mg tablet,12 hr sustained-release(smoking deterrent) 150 mg PO BID tab 09/17/20 [History Last Taken Unknown] guaifenesin 400 mg tablet 400 mg PO BID tab 09/17/20 [History Last Taken Unknown] icosapent ethyl 1 gram capsule 2 g PO BID cap 09/17/20 [History Last Taken Unknown] naproxen sodium 220 mg tablet 220 mg PO DAILY tab 09/17/20 [History Last Taken Unknown] pregabalin 75 mg capsule 75 mg PO TID PRN cap 09/17/20 [History Last Taken Unknown] spironolactone 25 mg tablet 25 mg PO DAILY tab 09/17/20 [History Last Taken Unknown] tramadol 50 mg tablet 50 mg PO .5XD PRN tab 09/17/20 [History Last Taken Unknown] albuterol sulfate 90 mcg/actuation aerosol inhaler 2 puff INHALATION Q4H PRN #8.5 g 12/22/20 [Rx Last Taken Unknown] fluticasone fur. 200 mcg-umeclid 62.5 mcg-vilant 25 mcg inhalat.powder 1 inh INHALATION DAILY #60 ea 12/22/20 [Rx Last Taken Unknown] Allergy/AdvReac Type Severity Reaction Status Date / Time No Known Allergies Allergy Verified 01/15/21 20:16 Family History Father Colon cancer Surgical History H/O coronary artery bypass surgery (01/17/14) History of carpal tunnel release History of left heart catheterization (07/05/12) History of radiofrequency ablation procedure for cardiac arrhythmia (01/17/14) Social History Smoking Status: Former smoker quit date: 05/22/20 Tobacco: How many years used: 52 Electronic Cigarette Use: not used second hand exposure: Yes alcohol intake: never substance use type: does not use ROS ROS ED Constitutional Constitutional ED: Denies fever(s) Eyes Eyes: Denies blurry vision ENT ENT ED: Denies rhinorrhea Cardiovascular Cardiovascular: Reports other Details: Despite his high heart rate, patient feels a hollow feeling but really does not notice this quick heart rate. ; Denies chest pain, palpitations or racing heartbeat Respiratory/Chest Respiratory/Chest: Reports dyspnea; Denies cough Gastrointestinal Gastrointestinal: Denies abdominal pain, diarrhea, nausea or vomiting Genitourinary Genitourinary ED: Denies hematuria Musculoskeletal Musculoskeletal: Denies arthralgias, back pain, myalgias or neck pain Integumentary Denies rash Neurologic Neurologic: Denies headache(s) Endocrine Endocrinology: Denies polyuria Allergic/Immunologic Allergic/Immunologic ED: Denies urticaria EXAM Physical Exam Const Vital Signs: 01/15/21 20:14 01/15/21 20:37 01/15/21 20:40 Temperature 98.0 F Temperature Source Temporal Pulse Rate 205 H 211 H Respiratory Rate 18 18 Respiratory Pattern Normal Blood Pressure 102/90 H 103/78 Blood Pressure Mean 94 86 Pulse Ox 95 97 Oxygen Delivery Method Room Air Nasal Cannula Oxygen Flow Rate (L/min) 2 01/15/21 20:46 01/15/21 20:50 01/15/21 21:37 Temperature Temperature Source Pulse Rate 195 H 124 H 91 Respiratory Rate 16 Respiratory Pattern Blood Pressure 87/65 L 118/67 125/66 H Blood Pressure Mean 72 84 85 Pulse Ox 95 96 Oxygen Delivery Method Nasal Cannula Nasal Cannula Oxygen Flow Rate (L/min) 2 2 01/15/21 22:29 Temperature Temperature Source Pulse Rate 91 Respiratory Rate 18 Respiratory Pattern Blood Pressure 144/76 H Blood Pressure Mean 98 Pulse Ox 93 Oxygen Delivery Method Room Air Oxygen Flow Rate (L/min) Positive well nourished and well developed Constitutional Narrative: Patient is wide awake alert he is even making jokes in the room. He is not diaphoretic. He is not pale feet. He is not at all confused. General Appearance ED: well developed and NAD HEENT Reports moist mucous membranes Eyes General Eye ED: Negative for pale conjunctiva Neck no lymphadenopathy Resp normal respiratory effort and clear to auscultation bilaterally Cardio Rate: tachycardic GI normal to inspection, nondistended, normoactive bowel sounds and non-tender Palpation: soft Back/Spine no CVA tenderness Extremity normal to inspection General Extremety ED: Negative for edema or tenderness General Extremity: Negative for edema Neuro oriented x3 Sensorium / Orientation: alert Psych mental status grossly normal Skin no rashes or lesions noted MDM MDM MDM Narrative Medical decision making narrative: Patient's EKG shows a tachycardic but very regular rhythm with a rate of 211. There does appear to be a P wave. This might be atrial flutter. QRS is somewhat wide. No sign of acute MT. We did attempt adenosine. 6 mg did not cause any symptoms or help. With 12 mg we did get a pause of his heart rate. He then went into a more regular rhythm with a rate close to 100. It appeared to have a P wave prior to it. However our monitor was not able to print this out in a clean easily measurable fashion. He stayed in this rhythm for about 10 beats and then accelerated back to where he was. We will add metoprolol to the patient. We will then try again. At this point he is awake alert. He is not diaphoretic. His blood pressure is good. He is not having nausea vomiting or dyspnea. He does not need acute cardioversion. 20: 55 Patient states that he is happy his heart rate is slower. But he wants it down even lower so he can go home. He states he feels well. He looks like he is either in a sinus with frequent PACs, sick sinus syndrome or the likely un derlying atrial fibrillation now. His heart rate will range anywhere from 115- 135. Patient's heart rate seem to go into atrial fibrillation or a sick sinus syndrome for a while. He now has been in normal sinus for quite some time. He will occasionally have PVCs and PACs but is overall in sinus. It is initial blood work is not showing any marked abnormalities. There is a mild elevation of the BNP. Initial troponin is negative and this is being redrawn. I discussed case with the hospitalist. I also discussed the case with cardiology, Dr. Don. Cardiology recommended keeping him on beta-janet and starting heparin drip. Lab Data Attestation: I reviewed the patient's lab results. Labs: Laboratory Results - last 24 hr 01/15/21 01/15/21 01/15/21 20:20 20:20 20:20 WBC 10.5 RBC 4.57 L Hgb 13.3 Hct 42.7 MCV 93.4 MCH 29.1 MCHC 31.1 L RDW Std Deviation 50.4 H RDW Coeff of Sujata 14.6 Plt Count 350 MPV 10.7 Immature Gran % (Auto) 0.400 Neut % (Auto) 65.4 Lymph % (Auto) 22.8 Meagher % (Auto) 11.3 H Eos % (Auto) 0.0 Baso % (Auto) 0.1 Absolute Neuts (auto) 6.8 Absolute Lymphs (auto) 2.38 Nucleated RBC % 0 Sodium 141 Potassium 4.2 Chloride 109 H Carbon Dioxide 28.0 Anion Gap 4 L BUN 20 H Creatinine 1.01 Estim Creat Clear Calc 55.36 Est GFR (MDRD) Af Amer 93 Est GFR (MDRD) Non-Af 77 BUN/Creatinine Ratio 19.8 Glucose 105 Lactic Acid Calcium 9.3 Troponin I High Sens 11 B-Natriuretic Peptide 224.6 H 01/15/21 20:55 WBC RBC Hgb Hct MCV MCH MCHC RDW Std Deviation RDW Coeff of Sujata Plt Count MPV Immature Gran % (Auto) Neut % (Auto) Lymph % (Auto) Meagher % (Auto) Eos % (Auto) Baso % (Auto) Absolute Neuts (auto) Absolute Lymphs (auto) Nucleated RBC % Sodium Potassium Chloride Carbon Dioxide Anion Gap BUN Creatinine Estim Creat Clear Calc Est GFR (MDRD) Af Amer Est GFR (MDRD) Non-Af BUN/Creatinine Ratio Glucose Lactic Acid 1.3 Calcium Troponin I High Sens B-Natriuretic Peptide EKG Initial EKG: Comments: EKG shows significance tachycardia with a rate of 211. There does appear to be either a upright P wave or possibly a portion of a sawtooth pattern that is seen. Due to the rate it is difficult to ascertain. This is an extremely regular rhythm though. QRS is toward the wider end at 120. There is no definitive evidence of infarct. Critical Care Time Critical Care Time: Yes Critical care time (excluding procedures): 30-74 minutes and - (45 minutes of critical care time. Patient's checked multiple times. We also checked the monitor multiple times. We adjusted medications. We adjusted his fluid status. We made calls with consultation. Due to the severe high heart rate, history of heart disease and risk for decompensation critic) Discharge Plan Dx/Rx/DC Orders Clinical Impression: Cardiac dysrhythmia Disposition Disposition: Acute Care [facility]
[2021-01-15] MEDS: Metoprolol Tartrate 5 MG/5 ML Vial IV ×2 (20:39→20:43)
[2021-01-15 20:40] VITALS: BP 103/78; PULSE 211; RESP 18; O2SAT 97
[2021-01-15 20:46] VITALS: BP 87/65; PULSE 195
[2021-01-15 20:50] VITALS: BP 118/67; PULSE 124; O2SAT 95
--- NOTE | 2021-01-15 20:50 | EKG12_ITS ---
Test Reason : REPEAT EKG Blood Pressure : / mmHG Vent. Rate : 129 BPM Atrial Rate : 129 BPM P-R Int : 128 ms QRS Dur : 098 ms QT Int : 324 ms P-R-T Axes : 041 -40 083 degrees QTc Int : 474 ms Atrial fibrillation with occasional Premature ventricular complexes Left axis deviation Low voltage QRS Nonspecific ST and T wave abnormality Abnormal ECG When compared with ECG of 15-JAN-2021 20:20, MANUAL COMPARISON REQUIRED, DATA IS UNCONFIRMED Confirmed by ROB VENEGAS, KHANG ([id number]), business editor MORGAN JOSEPH ([id number]) on 01/21/2021 10:50:30 AM Referred By: HECTOR Confirmed By:KHANG RIVAS MD
--- NOTE | 2021-01-15 20:51 | EKG12_ITS ---
Test Reason : REPEAT EKG Blood Pressure : / mmHG Vent. Rate : 093 BPM Atrial Rate : 093 BPM P-R Int : 132 ms QRS Dur : 100 ms QT Int : 364 ms P-R-T Axes : 071 -25 058 degrees QTc Int : 452 ms Sinus rhythm with Premature ventricular complexes or Fusion complexes Low voltage QRS Nonspecific ST abnormality Abnormal ECG Confirmed by CRISTA VENEGAS, STEVE ([id number]), production editor MORGAN JOSEPH ([id number]) on 01/18/2021 2:18:44 PM Referred By: HECTOR Confirmed By:STEVE TOBIN MD
[2021-01-15 21:03] LABS: Absolute Lymphocyte Count 2.38 X10^3/uL (0.83-4.51); Absolute Neutrophil Count 6.8 X10^3/uL (2.0-7.7); Basophil# 0.01 X10^3/uL; Basophil% 0.1 % (0-1); Hematocrit 42.7 % (40-54); Hemoglobin 13.3 g/dL (13.0-16.5); Lymphocyte # 2.38 X10^3/ul (0.83-4.51); Lymphocyte % 22.8 % (19-41); Mean Corp Hgb Conc 31.1 g/dL (32-36); Mean Corpuscular Hgb 29.1 pg (27.0-32.0); Mean Corpuscular Volume 93.4 fL (80-94); Mean Platelet Vol. 10.7 fl (6.2-12.0); Monocyte# 1.18 X10^3/uL; Monocyte% 11.3 % (0-10); NRBC Flagged by Analyzer 0 % (0-5); Neutrophil # 6.84 X10^3/uL (2.7-7.7); Neutrophil % 65.4 % (47-70); Platelet Count 350 K/mm3 (150-450); RBC Distribution Width CV 14.6 % (11.6-14.6); RBC Distribution Width SD 50.4 fl (35.1-43.9); Red Blood Count 4.57 M/mm3 (4.6-6.2); White Blood Count 10.5 K/mm3 (4.4-11.0)
[2021-01-15 21:17] LABS: Anion Gap 4 (5-15); BUN 20 mg/dL (7-18); BUN/Creat Ratio 19.8 RATIO (10-20); Calcium,Total 9.3 mg/dL (8.5-10.1); Chloride 109 mmol/L (98-107); Creatinine, Serum 1.01 mg/dL (0.70-1.30); EST Glomerular Filtration Rate 77 mL/min (>60); Est Glom Filt Rate - Afr Amer 93 mL/min (>60); Estimated Creatinine Clearance 55.36 ml/min; Glucose 105 mg/dL (74-106); Potassium 4.2 mmol/L (3.5-5.1); Sodium Level 141 mmol/L (136-145); Troponin-I HS 11 pg/mL (3.0-78.0)
--- NOTE | 2021-01-15 21:20 | RAD_ITS ---
STUDY: X-RAY CHEST REASON FOR EXAM: Male, 70 years old. SOB TECHNIQUE: Single frontal view of the chest. COMPARISON: 07/17/2020 FINDINGS: Sternotomy wires. Atrial appendage clip. Bibasilar subsegmental atelectasis. There is no demonstrated pleural abnormality. Normal size heart. Normal mediastinum and katelyn. Normal visualized pulmonary arteries. Normal visualized aortic arch and descending thoracic aorta. Moderate dextroconvex scoliosis. Normal visualized ribs, clavicles, and shoulders. There is no demonstrated abnormality of the visualized soft tissue structures of the upper abdomen. RAD/Chest 1 View (Portable) IMPRESSION: No acute disease Electronically Signed: Carlos Miller MD at 23:00 EDT , Service support ,
[2021-01-15 21:33] LABS: Lactic Acid 1.3 mmol/L (0.4-1.9)
[2021-01-15 21:36] LABS: BNP,B-Type NATRIURETIC PEPTIDE 224.6 pg/mL (0-100)
[2021-01-15 21:37] VITALS: BP 125/66; PULSE 91; RESP 16; O2SAT 96
[2021-01-15 22:29] VITALS: BP 144/76; PULSE 91; RESP 18; O2SAT 93
[2021-01-15 23:04] LABS: Troponin-I HS 32 pg/mL (3.0-78.0)
--- NOTE | 2021-01-15 23:28 | HP.PCM.HOS_ITS ---
HPI - General General Date of Admission: 01/15/21 HPI Narrative KAMILLA DICKSON, is a 70 M who presents the hospital with palpitations and lightheadedness. 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 In the ER he was found to have a wide-complex tachycardia that looked like on EKG he was given 6 mg of adenosine since his heart rate was over 200 which did slow his rate down a little bit and then he was transitioned to 12 mg of adenosine and given a dose of metoprolol afterwards. It does appear that he has P waves and therefore not currently in A. fib though he does have a history of paroxysmal A. fib years ago. Unsure as to what his underlying rhythm was. He currently feels com pletely fine has no chest pain or lightheadedness. But does recognize the need to stay and have this further evaluated. The ED physician did talk with cardiology who recommended admitting on a beta-janet and a heparin drip. [facility] Medical History (Updated 01/15/21 @ 23:[address] Elliot Mcconnell MD) Atherosclerosis of coronary artery of [place] heart without angina pectoris Benign prostatic hypertrophy Chronic respiratory failure COPD (chronic obstructive pulmonary disease) CVA (cerebral vascular accident) (05/29/18) DDD (degenerative disc disease) Essential (primary) hypertension Hyperlipidemia Ischemic cardiomyopathy Left carotid artery stenosis Myoclonic jerking Nicotine dependence Nocturnal hypoxemia Osteoarthritis Paroxysmal atrial fibrillation (2008) Peripheral vascular occlusive disease Stage 3 chronic kidney disease Home Medications nitroglycerin 0.4 mg SL PRN PRN 07/04/16 [History Last Taken Unknown] clopidogrel 75 mg PO DAILY 06/12/19 [History Last Taken 07/17/20] loratadine 10 mg PO DAILY 06/12/19 [History Last Taken 07/17/20] metoprolol succinate 25 mg PO DAILY 06/12/19 [History Last Taken 07/17/20] aspirin 81 mg tablet,delayed release 81 mg PO DAILY 06/19/19 [History Last Taken 07/16/20] allopurinol 100 mg PO DAILY 07/17/20 [History Last Taken 07/17/20] ophksknf-mfa-VB-lycopen-lutein 1 tab PO DAILY 07/17/20 [History Last Taken 07/17/20] atorvastatin 80 mg tablet 80 mg PO DAILY tab 09/17/20 [History Last Taken Unknown] baclofen 10 mg tablet 10 mg PO TID PRN tab 09/17/20 [History Last Taken Unknown] bupropion HCl (smoking deter) 150 mg tablet,12 hr sustained-release(smoking deterrent) 150 mg PO BID tab 09/17/20 [History Last Taken Unknown] guaifenesin 400 mg tablet 400 mg PO BID tab 09/17/20 [History Last Taken Unknown] icosapent ethyl 1 gram capsule 2 g PO BID cap 09/17/20 [History Last Taken Unknown] naproxen sodium 220 mg tablet 220 mg PO DAILY tab 09/17/20 [History Last Taken Unknown] pregabalin 75 mg capsule 75 mg PO TID PRN cap 09/17/20 [History Last Taken Unknown] spironolactone 25 mg tablet 25 mg PO DAILY tab 09/17/20 [History Last Taken Unknown] tramadol 50 mg tablet 50 mg PO .5XD PRN tab 09/17/20 [History Last Taken Unknown] albuterol sulfate 90 mcg/actuation aerosol inhaler 2 puff INHALATION Q4H PRN #8.5 g 12/22/20 [Rx Last Taken Unknown] fluticasone fur. 200 mcg-umeclid 62.5 mcg-vilant 25 mcg inhalat.powder 1 inh INHALATION DAILY #60 ea 12/22/20 [Rx Last Taken Unknown] Allergy/AdvReac Type Severity Reaction Status Date / Time No Known Allergies Allergy Verified 01/15/21 20:16 Family History Father Colon cancer Surgical History H/O coronary artery bypass surgery (01/17/14) History of carpal tunnel release History of left heart catheterization (07/05/12) History of radiofrequency ablation procedure for cardiac arrhythmia (01/17/14) Social History Smoking Status: Former smoker quit date: 05/22/20 Tobacco: How many years used: 52 Electronic Cigarette Use: not used second hand exposure: Yes alcohol intake: never substance use type: does not use ROS Constitutional Constitutional: Denies chills, fatigue, fever(s) or malaise Eyes Eyes: Denies blurry vision ENT HEENT: Denies headache(s) or nasal discharge Cardiovascular Cardiovascular: Denies chest pain, dyspnea on exertion or syncope Respiratory/Chest Respiratory/Chest: Denies cough, shortness of breath at rest or shortness of breath with exertion Gastrointestinal Gastrointestinal: Denies constipation, diarrhea, nausea or vomiting Genitourinary Genitourinary: Denies dysuria Neurologic Neurologic: Denies focal weakness, numbness or tremor(s) Psychiatric Psychiatric: Denies anxiety or depression Vital Signs Vital Signs Vital Signs: 01/15/21 20:14 01/15/21 20:37 01/15/21 20:40 Temperature 98.0 F Temperature Source Temporal Pulse Rate 205 H 211 H Respiratory Rate 18 18 Respiratory Pattern Normal Blood Pressure 102/90 H 103/78 Blood Pressure Mean 94 86 Pulse Ox 95 97 Oxygen Delivery Method Room Air Nasal Cannula Oxygen Flow Rate (L/min) 2 01/15/21 20:46 01/15/21 20:50 01/15/21 21:37 Temperature Temperature Source Pulse Rate 195 H 124 H 91 Respiratory Rate 16 Respiratory Pattern Blood Pressure 87/65 L 118/67 125/66 H Blood Pressure Mean 72 84 85 Pulse Ox 95 96 Oxygen Delivery Method Nasal Cannula Nasal Cannula Oxygen Flow Rate (L/min) 2 2 01/15/21 22:29 Temperature Temperature Source Pulse Rate 91 Respiratory Rate 18 Respiratory Pattern Blood Pressure 144/76 H Blood Pressure Mean 98 Pulse Ox 93 Oxygen Delivery Method Room Air Oxygen Flow Rate (L/min) Weight Weight: 144 lb Body Mass Index (BMI) 24.7 Physical Exam Const alert, oriented x3 and no apparent distress General Appearance: cooperative HEENT normocephalic and moist oral mucous membranes Eyes PERRL, EOMs intact bilaterally and conjunctivae normal Neck supple and no JVD Resp normal respiratory effort, no retractions, no use of accessory muscles and clear to auscultation bilaterally Auscultation: Negative for crackles, rales, rhonchi or wheezes Cardio regular rate, regular rhythm, S1 normal heart sound, S2 normal heart sound and no murmurs GI soft to palpation, non-tender and non-distended; Negative for hepatosplenomegaly Extremity no clubbing, cyanosis or edema Skin no rashes or lesions noted Neuro no focal motor deficits and no sensory deficits noted Psych affect normal Appearance: appropriate Results Lab / Micro Data Result Diagrams: 01/15/21 20:20 01/15/21 20:20 Labs: Laboratory Results - last 24 hr 01/15/21 20:20: WBC 10.5, RBC 4.57 L, Hgb 13.3, Hct 42.7, MCV 93.4, MCH 29.1, MCHC 31.1 L, RDW Std Deviation 50.4 H, RDW Coeff of Sujata 14.6, Plt Count 350, MPV 10.7, Immature Gran % (Auto) 0.400, Neut % (Auto) 65.4, Lymph % (Auto) 22.8, [place] % (Auto) 11.3 H, Eos % (Auto) 0.0, Baso % (Auto) 0.1, Absolute Neuts (auto) 6.8, Absolute Lymphs (auto) 2.38, Nucleated RBC % 0 01/15/21 20:20: Sodium 141, Potassium 4.2, Chloride 109 H, Carbon Dioxide 28.0, Anion Gap 4 L, BUN 20 H, Creatinine 1.01, Estim Creat Clear Calc 55.36, Est GFR (MDRD) Af Amer 93, Est GFR (MDRD) Non-Af 77, BUN/Creatinine Ratio 19.8, Glucose 105, Calcium 9.3, Troponin I High Sens 11 01/15/21 20:20: B-Natriuretic Peptide 224.6 H 01/15/21 20:55: Lactic Acid 1.3 01/15/21 22:42: Troponin I High Sens 32 Radiology Impression Chest X-Ray 01/15/21 21:20 IMPRESSION: No acute disease Electronically Signed: Carlos Miller MD at 23:00 EDT , Service support , Assessment & Plan Assessment/Plan (1) Cardiac dysrhythmia: PLAN: 1. Cardiac arrhythmia/CAD status post CABG/HTN/HLD/history of paroxysmal A. fib -During his CABG he did have his left atrial appendage clip, he does have a history of radiofrequency ablation and 2014 -Initially appeared to be a wide-complex tachycardia and then was also noticed to be a P wave therefore unsure as to the underlying arrhythmia -Currently stable after adenosine x2, will continue with metoprolol 25 mg p.o. twice daily -We will restart his home meds once they are verified -Echo was obtained in July with an EF of 55% and inferior septal hypokinesis -We will consult cardiology for evaluation -Continue with heparin drip for now 2. COPD -Not in exacerbation -Can continue with his home inhalers, he has discontinued smoking since May of this year DVT: Heparin drip Charges/Coding Visit Charges OBSV E&M: 15679 Initial observation care L3
[2021-01-16] VITALS (21 sets, daily range): BP systolic 111–149; BP diastolic 49–96; PULSE 51–89; RESP 11–20; TEMP 36.6–37.1; O2SAT 92–98; BMI 28.8
[2021-01-16] MEDS: Heparin Injection (Vial) 5,000 UNIT/ML VIAL 4500 UNIT IV (00:02)
[2021-01-16] MEDS: HEPARIN/D5w 25,000 UNITS 25,000 UNITS/250 ML IV.SOLN. 10 UNITS IV (00:05)
[2021-01-16 00:20] LABS: International Normalized Ratio 1.1; Prothrombin Time (Protime)PT. 13.8 SECONDS (11.7-14.9)
[2021-01-16 00:21] LABS: Partial Thromboplast Time 32.3 Seconds (24.1-36.2)
--- NOTE | 2021-01-16 00:42 | PCS.PANDOC ---
PANDEMIC DOCUMENTATION INITIATED: Date: 12/21/2020 Time: 190
[2021-01-16] MEDS: Baclofen 10 MG Tablet PO ×4 (02:07→22:25)
[2021-01-16] MEDS: Pregabalin 75 MG Capsule PO ×4 (02:07→22:25)
[2021-01-16] MEDS: Ipratropium/Albuterol Sulfate 3 ML AMPUL.NEB INHALATION ×3 (06:48→19:16)
[2021-01-16] MEDS: Budesonide Respules 0.5 MG/2 ML AMPUL.NEB. INHALATION ×2 (06:48→19:16)
[2021-01-16 07:31] LABS: Absolute Lymphocyte Count 2.06 X10^3/uL (0.83-4.51); Absolute Neutrophil Count 4.1 X10^3/uL (2.0-7.7); Basophil# 0.01 X10^3/uL; Basophil% 0.1 % (0-1); Hematocrit 38.7 % (40-54); Hemoglobin 12.1 g/dL (13.0-16.5); Lymphocyte # 2.06 X10^3/ul (0.83-4.51); Lymphocyte % 29.3 % (19-41); Mean Corp Hgb Conc 31.3 g/dL (32-36); Mean Corpuscular Hgb 29.5 pg (27.0-32.0); Mean Corpuscular Volume 94.4 fL (80-94); Mean Platelet Vol. 10.4 fl (6.2-12.0); Monocyte# 0.86 X10^3/uL; Monocyte% 12.3 % (0-10); NRBC Flagged by Analyzer 0 % (0-5); Neutrophil # 4.06 X10^3/uL (2.7-7.7); Neutrophil % 57.9 % (47-70); Platelet Count 311 K/mm3 (150-450); RBC Distribution Width CV 14.7 % (11.6-14.6); RBC Distribution Width SD 51.5 fl (35.1-43.9)
[2021-01-16 07:55] LABS: Anion Gap 5 (5-15); BUN 17 mg/dL (7-18); BUN/Creat Ratio 19.4 RATIO (10-20); Chloride 109 mmol/L (98-107); Creatinine, Serum 0.88 mg/dL (0.70-1.30); EST Glomerular Filtration Rate 91 mL/min (>60); Est Glom Filt Rate - Afr Amer 110 mL/min (>60); Estimated Creatinine Clearance 56.13 ml/min; Glucose 88 mg/dL (74-106); Magnesium 2.1 mg/dL (1.6-2.6); Potassium 3.8 mmol/L (3.5-5.1); Sodium Level 141 mmol/L (136-145)
[2021-01-16 08:31] LABS: Partial Thromboplast Time 195.8 Seconds (24.1-36.2)
[2021-01-16] MEDS: 0.9% Saline Lock 10 ML Syringe IV ×2 (10:41→13:34)
[2021-01-16] MEDS: Metoprolol Tartrate 25 MG Tablet PO (10:42)
--- NOTE | 2021-01-16 11:55 | ECHOD_ITS ---
Version 2 Reason For Study: CAD/ASHD Procedure This was a 2D Doppler, Color Flow transthoracic echocardiogram. Contrast injection was performed. Exam performed in department. Left Ventricle Normal LV size. The estimated ejection fraction is 40 %. Mild to moderate segmental systolic dysfunction (see wall motion). There is mild global hypokinesis of the left ventricle. Infero-Basal: Severely Hypokinetic. Posterior-Basal: Severely hypokinetic. Right Ventricle Normal RV size. Normal systolic function. Atria Normal left atrium. Normal right atrium. Mitral Valve Bileaflet diffuse mitral valve thickening. Mild (1+) eccentric mitral valve insufficiency. Tricuspid Valve Normal tricuspid valve. Mild (1+) tricuspid valve insufficiency. Pulmonary artery systolic pressure is 36 mmHg. Pulmonic Valve Normal pulmonic valve. Great Vessels Normal aortic root. Pericardium/Pleural No pericardial effusion. Medication Diluted definity 2ml given slow IV push to enhance endocardial definition. MMode/2D Measurements & Calculations LVIDd: 5.2 cm IVSd: 1.1 cm Ao root diam: 2.6 cm LVIDs: 3.8 cm LVPWd: 1.1 cm RVDd: 3.3 cm FS: 27.3 % LAV(MOD-bp): 54.2 ml LVAd ap4: 30.6 cm2 SV(MOD-sp4): 59.6 ml LAV(MOD-bp) Indexed: 32.3 ml/m2 LVLd ap4: 7.0 cm LAV(MOD-sp2): 48.0 ml EDV(MOD-sp4): 111.0 ml LAV(MOD-sp4): 50.3 ml EDV(sp4-el): 114.2 ml LVAs ap4: 18.4 cm2 LVLs ap4: 5.8 cm ESV(MOD-sp4): 51.4 ml ESV(sp4-el): 50.2 ml EF(MOD-sp4): 53.7 % EF(sp4-el): 56.1 % SV(sp4-el): 64.0 ml LA A4 area: 18.5 cm2 LA dimension(2D): 4.3 cm RA A4 area: 15.1 cm2 Doppler Measurements & Calculations MV E max carl: 72.1 cm/sec Lat Peak E' Carl: 6.1 cm/sec Med Peak E' Carl: 4.6 cm/sec MV A max carl: 58.9 cm/sec E/E' lat: 11.8 E/E' med: 15.7 MV E/A: 1.2 Ao V2 max: 104.2 cm/sec LV V1 max: 78.5 cm/sec PA V2 max: 67.9 cm/sec Ao max P.3 mmHg LV V1 max P.5 mmHg Ao V2 mean: 69.4 cm/sec Ao mean P.1 mmHg Ao V2 VTI: 23.1 cm TR max carl: 289.5 cm/sec TR max P.6 mmHg ECHO/Echo Complete W/ Contrast Interpretation Summary Normal LV size. The estimated ejection fraction is 40 %. There is mild global hypokinesis of the left ventricle. Mild (1+) tricuspid valve insufficiency. Pulmonary artery systolic pressure is 36 mmHg. Mild to moderate segmental systolic dysfunction (see wall motion). Ordering Physician: Sonia Don Referring Physician: Jb Melendez Chi Performed By: Karie Martines, ARNALDO, RVT
--- NOTE | 2021-01-16 13:12 | PN.HOSP_ITS ---
Documented by User: Madeleine Jean-Baptiste NP, [employer]ANING TEAM MEMBER-C 01/16/21 13:33 Subjective Subjective Patient seen and examined. Denies chest pain, palpitations, shortness of breath. Cardiology evaluated the patient, suspects arrhythmias are V. tach. Plan for amiodarone. Objective Data Objective Data Vital Signs: Vital Signs Temp Pulse Resp BP Pulse Ox 97.8 F 73 16 114/57 L 96 01/16/21 10:40 01/16/21 10:42 01/16/21 10:40 01/16/21 10:42 01/16/21 10:40 Oxygen Flow Rate (L/min) 2 Oxygen Delivery Method Nasal Cannula Weight: 152 lb 12.485 oz Body Mass Index (BMI) 28.8 Intake & Output: Intake and Output for Last 24 Hours 01/14/21 01/15/21 01/16/21 23:59 23:59 23:59 Intake Total 500 / 500 84.5 / 84.5 Balance 500 / 500 84.5 / 84.5 Lab / Micro Data Result Diagrams: 01/16/21 06:10 01/16/21 06:10 Labs: Laboratory Results - last 24 hr 01/15/21 20:20: WBC 10.5, RBC 4.57 L, Hgb 13.3, Hct 42.7, MCV 93.4, MCH 29.1, MCHC 31.1 L, RDW Std Deviation 50.4 H, RDW Coeff of Sujata 14.6, Plt Count 350, MPV 10.7, Immature Gran % (Auto) 0.400, Neut % (Auto) 65.4, Lymph % (Auto) 22.8, [place] % (Auto) 11.3 H, Eos % (Auto) 0.0, Baso % (Auto) 0.1, Absolute Neuts (auto) 6.8, Absolute Lymphs (auto) 2.38, Nucleated RBC % 0 01/15/21 20:20: Sodium 141, Potassium 4.2, Chloride 109 H, Carbon Dioxide 28.0, Anion Gap 4 L, BUN 20 H, Creatinine 1.01, Estim Creat Clear Calc 55.36, Est GFR (MDRD) Af Amer 93, Est GFR (MDRD) Non-Af 77, BUN/Creatinine Ratio 19.8, Glucose 105, Calcium 9.3, Troponin I High Sens 11 01/15/21 20:20: B-Natriuretic Peptide 224.6 H 01/15/21 20:20: PT 13.8, INR 1.1, APTT 32.3 01/15/21 20:55: Lactic Acid 1.3 01/15/21 22:42: Troponin I High Sens 32 01/16/21 06:10: WBC 7.0, RBC 4.10 L, Hgb 12.1 L, Hct 38.7 L, MCV 94.4 H, MCH 29.5, MCHC 31.3 L, RDW Std Deviation 51.5 H, RDW Coeff of Sujata 14.7 H, Plt Count 311, MPV 10.4, Immature Gran % (Auto) 0.400, Neut % (Auto) 57.9, Lymph % (Auto) 29.3, [place] % (Auto) 12.3 H, Eos % (Auto) 0.0, Baso % (Auto) 0.1, Absolute Neuts (auto) 4.1, Absolute Lymphs (auto) 2.06, Nucleated RBC % 0 01/16/21 06:10: Sodium 141, Potassium 3.8, Chloride 109 H, Carbon Dioxide 27.0, Anion Gap 5, BUN 17, Creatinine 0.88, Estim Creat Clear Calc 56.13, Est GFR (MDRD) Af Amer 110, Est GFR (MDRD) Non-Af 91, BUN/Creatinine Ratio 19.4, Glucose 88, Calcium 9.0, Magnesium 2.1 01/16/21 06:10: APTT 195.8 H* Radiography Diagnostic Testing: Radiology Impression Chest X-Ray 01/15/21 21:20 IMPRESSION: No acute disease Electronically Signed: Carlos Miller MD at 23:00 EDT , Service support , Physical Exam Const alert, oriented x3 and no apparent distress Orientation / Consciousness: awake, oriented to person, oriented to place and oriented to time HEENT normocephalic and moist oral mucous membranes Eyes PERRL, EOMs intact bilaterally and conjunctivae normal Neck no lymphadenopathy Resp normal respiratory effort and clear to auscultation bilaterally Cardio regular rate, regular rhythm and no murmurs Peripheral Pulses: pulses 2+ throughout GI normal to inspection, nondistended, normoactive bowel sounds, non-tender and non-distended Extremity normal to inspection Skin no rashes or lesions noted Lesions: no lesions Rashes: no rashes Trauma: no lacerations or abrasions Neuro CN's II-XII intact bilaterally, no focal motor deficits, no sensory deficits noted and deep tendon reflexes 2+ bilaterally Psych mental status grossly normal and affect normal Assessment & Plan Assessment/Plan (1) Cardiac dysrhythmia: PLAN: 1. Cardiac arrhythmia/paroxysmal ventricular tachycardia-cardiology consulted. Received adenosine x2 in ER. Placed on amiodarone drip. Continue home beta-janet regimen. Medication adjustments per cardiology recommendations. Patient underwent 30-day event monitor in 2019 that demonstrated premature atrial complexes, PVCs and 4-5 beat run of wide-complex tachycardia. Echocardiogram ordered. Troponin negative. On heparin drip. 2. CAD with history of CABG-on aspirin, statin, Plavix, metoprolol. 3. History of paroxysmal atrial fibrillation-on metoprolol. Not on anticoagulation. 4. Hypertension-stable, continue current regimen. 5. Hyperlipidemia-continue statin. 6. Asthma/COPD overlap syndrome with chronic hypoxic respiratory failure-no exacerbation. Continue supplement oxygen to maintain O2 at or above 90%. 7. Tobacco dependence-in remission. DVT prophylaxis-heparin drip. This patient was seen by KAI Flores under the supervision of Dr. Pollard. Documented by User: Dr. Jose Pollard, 01/16/21 19:58 Objective Data Lab / Micro Data Result Diagrams: 01/16/21 06:10 01/16/21 06:10 Charges/Coding Addendum Addendum: Patient was seen and examined independently of Madeleine Jean-Baptiste, I talked with cardiology today about the patient's care, on the patient's telemetry strips there was noted to be episodes of nonsustained V. tach, it was decided to place the patient on amiodarone. I made the patient for admission today. On examination he appeared in good health and spirits. Vital signs as documented. Skin warm and dry and without overt rashes. Neck without JVD, neck was supple, trachea midline, thyroid was normal. Lungs clear bilaterally, normal air movement was noted. Heart exam notable for regular rhythm, normal sounds and absence of murmurs, rubs or gallops. Abdomen unremarkable and without evidence of organomegaly, masses, or abdominal aortic enlargement. Bowel sounds are present, abdomen is not distended. Extremities nonedematous, no cyanosis was noted, no clubbing was noted. Neuro: Cranial nerves II through XII are grossly intact, no focal motor deficits were noted, sensation to light touch and pin prick intact, motor exam 5/5 throughout. Psych: Patient is alert and oriented x3, he does not appear anxious or depressed, he does not appear agitated. I have reviewed Madeleine Jean-Baptiste's progress note including her medical assessment and plan of care and endorse it Visit Charges Inpatient E&M: 61292 Init Hosp L3
[2021-01-16] MEDS: Aspirin 81 MG TAB.CHEW PO (13:35)
[2021-01-16] MEDS: Amiodarone 360 MG in Dextrose 5% Viaflo Bag 192.8 ML 33.3 MG CONT INF (13:35)
[2021-01-16] MEDS: Clopidogrel Bisulfate 75 MG Tablet PO (13:35)
--- NOTE | 2021-01-16 14:45 | PCM.CONS.C ---
Assessment & Plan Assessment/Plan (1) Cardiac dysrhythmia: PLAN: This 70-year-old patient known coronary atherosclerosis prior: Artery bypass surgery x2 in 2013 History of paroxysmal atrial fibrillation Seen and evaluated in the ER with narrow QRS complex tachycardia was given adenosine converted to normal sinus On telemetry noted he had still episodes of what appears nonsustained V. tach. Cardiovascular assessment and recommendations; 1. Review all his current medication will continue on beta-janet, dual antiplatelet therapy, added amiodarone to the current treatment As well patient is on heparin We will evaluate with cardiac catheterization, to assess for myocardial ischemia, assess patency of his bypass graft as well as evaluate for progression of CAD. Echocardiogram to evaluate his LV function, continue to monitor on cardiac telemetry Cardiac catheterization on Monday. (2) Asthma-COPD overlap syndrome: (3) H/O coronary artery bypass surgery: (4) Atherosclerosis of coronary artery of [place] heart without angina pectoris: QUALIFIERS: Coronary Disease-Associated Artery/Lesion type: [place] artery Qualified Code(s): I25.10 - Atherosclerotic heart disease of [place] coronary artery without angina pectoris (5) Paroxysmal atrial fibrillation: (6) CVA (cerebral vascular accident): QUALIFIERS: CVA mechanism: unspecified Qualified Code(s): I63.9 - Cerebral infarction, unspecified HPI Consult Data Date of Consult: 01/16/21 HPI Narrative Reason for Consultation: Patient with episode of narrow QRS complex tachycardia/episode of NSVT HPI Narrative: KAMILLA DICKSON, is a 70 M who presents [facility] Medical History Atherosclerosis of coronary artery of [place] heart without angina pectoris Benign prostatic hypertrophy Chronic respiratory failure COPD (chronic obstructive pulmonary disease) CVA (cerebral vascular accident) (05/29/18) DDD (degenerative disc disease) Essential (primary) hypertension Hyperlipidemia Ischemic cardiomyopathy Left carotid artery stenosis Myoclonic jerking Nicotine dependence Nocturnal hypoxemia Osteoarthritis Paroxysmal atrial fibrillation (2008) Peripheral vascular occlusive disease Stage 3 chronic kidney disease Home Medications clopidogrel 75 mg PO DAILY 06/12/19 [History Last Taken 01/15/21] loratadine 10 mg PO DAILY 06/12/19 [History Last Taken 01/15/21] metoprolol succinate 25 mg PO DAILY 06/12/19 [History Last Taken 01/15/21] aspirin 81 mg tablet,delayed release 81 mg PO DAILY 06/19/19 [History Last Taken 01/14/21] allopurinol 100 mg PO DAILY 07/17/20 [History Last Taken 01/15/21] uperqbmi-cuh-HU-lycopen-lutein 1 tab PO DAILY 07/17/20 [History Last Taken 07/17/20] atorvastatin 80 mg tablet 80 mg PO DAILY tab 09/17/20 [History Last Taken 01/14/21] baclofen 10 mg tablet 10 mg PO TID PRN tab 09/17/20 [History Last Taken 01/15/21 08:00] bupropion HCl (smoking deter) 150 mg tablet,12 hr sustained-release(smoking deterrent) 150 mg PO BID tab 09/17/20 [History Last Taken 01/15/21] guaifenesin 400 mg tablet 400 mg PO BID tab 09/17/20 [History Last Taken 01/15/21] icosapent ethyl 1 gram capsule 2 g PO BID cap 09/17/20 [History Last Taken 01/15/21] naproxen sodium 220 mg tablet 220 mg PO DAILY tab 09/17/20 [History Last Taken 01/15/21] pregabalin 75 mg capsule 75 mg PO TID PRN cap 09/17/20 [History Last Taken 01/15/21 08:00] spironolactone 25 mg tablet 25 mg PO DAILY tab 09/17/20 [History Last Taken 01/15/21] tramadol 50 mg tablet 50 mg PO .5XD PRN tab 09/17/20 [History Last Taken Unknown] albuterol sulfate 90 mcg/actuation aerosol inhaler 2 puff INHALATION Q4H PRN #8.5 g 12/22/20 [Rx Last Taken 01/15/21] fluticasone fur. 200 mcg-umeclid 62.5 mcg-vilant 25 mcg inhalat.powder 1 inh INHALATION DAILY #60 ea 12/22/20 [Rx Last Taken 01/15/21] Allergy/AdvReac Type Severity Reaction Status Date / Time No Known Allergies Allergy Verified 01/15/21 20:16 Family History Father Colon cancer Surgical History H/O coronary artery bypass surgery (01/17/14) History of carpal tunnel release History of left heart catheterization (07/05/12) History of radiofrequency ablation procedure for cardiac arrhythmia (01/17/14) Social History Smoking Status: Former smoker quit date: 05/22/20 Tobacco: How many years used: 52 Electronic Cigarette Use: not used second hand exposure: Yes alcohol intake: never substance use type: does not use Physical Exam Narrative Patient alert orientated Seen and evaluated today at bedside along with the nursing staff hospital monitor showed sinus rhythm Cardiac exam S1-S2 regular there is no murmur no systolic or diastolic murmur Chest exam diminished air entry bilateral with bilateral basal crackles Abdomen soft Central nervous system exam no focal neurological deficit. Objective Data Vital Signs: Vital Signs Temp Pulse Resp BP Pulse Ox 98.7 F 72 12 124/63 H 96 01/16/21 13:35 01/16/21 13:35 01/16/21 13:35 01/16/21 13:35 01/16/21 13:35 Oxygen Flow Rate (L/min) 2 Oxygen Delivery Method Nasal Cannula Weight: 152 lb 12.485 oz Body Mass Index (BMI) 28.8 Intake & Output: Intake and Output for Last 24 Hours 01/14/21 01/15/21 01/16/21 23:59 23:59 23:59 Intake Total 500 / 500 84.5 / 84.5 Balance 500 / 500 84.5 / 84.5 Lab / Micro Data Result Diagrams: 01/16/21 06:10 01/16/21 06:10 Labs: Laboratory Results - last 24 hr 01/15/21 20:20: WBC 10.5, RBC 4.57 L, Hgb 13.3, Hct 42.7, MCV 93.4, MCH 29.1, MCHC 31.1 L, RDW Std Deviation 50.4 H, RDW Coeff of Sujata 14.6, Plt Count 350, MPV 10.7, Immature Gran % (Auto) 0.400, Neut % (Auto) 65.4, Lymph % (Auto) 22.8, [place] % (Auto) 11.3 H, Eos % (Auto) 0.0, Baso % (Auto) 0.1, Absolute Neuts (auto) 6.8, Absolute Lymphs (auto) 2.38, Nucleated RBC % 0 01/15/21 20:20: Sodium 141, Potassium 4.2, Chloride 109 H, Carbon Dioxide 28.0, Anion Gap 4 L, BUN 20 H, Creatinine 1.01, Estim Creat Clear Calc 55.36, Est GFR (MDRD) Af Amer 93, Est GFR (MDRD) Non-Af 77, BUN/Creatinine Ratio 19.8, Glucose 105, Calcium 9.3, Troponin I High Sens 11 01/15/21 20:20: B-Natriuretic Peptide 224.6 H 01/15/21 20:20: PT 13.8, INR 1.1, APTT 32.3 01/15/21 20:55: Lactic Acid 1.3 01/15/21 22:42: Troponin I High Sens 32 01/16/21 06:10: WBC 7.0, RBC 4.10 L, Hgb 12.1 L, Hct 38.7 L, MCV 94.4 H, MCH 29.5, MCHC 31.3 L, RDW Std Deviation 51.5 H, RDW Coeff of Sujata 14.7 H, Plt Count 311, MPV 10.4, Immature Gran % (Auto) 0.400, Neut % (Auto) 57.9, Lymph % (Auto) 29.3, [place] % (Auto) 12.3 H, Eos % (Auto) 0.0, Baso % (Auto) 0.1, Absolute Neuts (auto) 4.1, Absolute Lymphs (auto) 2.06, Nucleated RBC % 0 01/16/21 06:10: Sodium 141, Potassium 3.8, Chloride 109 H, Carbon Dioxide 27.0, Anion Gap 5, BUN 17, Creatinine 0.88, Estim Creat Clear Calc 56.13, Est GFR (MDRD) Af Amer 110, Est GFR (MDRD) Non-Af 91, BUN/Creatinine Ratio 19.4, Glucose 88, Calcium 9.0, Magnesium 2.1 01/16/21 06:10: APTT 195.8 H* Cardiology Labs/Tests 01/15/21 20:20: WBC 10.5, RBC 4.57 L, Hgb 13.3, Hct 42.7, MCV 93.4, MCH 29.1, MCHC 31.1 L, Plt Count 350, MPV 10.7, Immature Gran % (Auto) 0.400, Neut % (Auto) 65.4, Lymph % (Auto) 22.8, [place] % (Auto) 11.3 H, Eos % (Auto) 0.0, Baso % (Auto) 0.1, Absolute Neuts (auto) 6.8, Nucleated RBC % 0 01/15/21 20:20: Sodium 141, Potassium 4.2, Chloride 109 H, Carbon Dioxide 28.0, Anion Gap 4 L, BUN 20 H, Creatinine 1.01, Est GFR (MDRD) Af Amer 93, Est GFR (MDRD) Non-Af 77, BUN/Creatinine Ratio 19.8, Glucose 105, Calcium 9.3 01/15/21 20:20: B-Natriuretic Peptide 224.6 H 01/15/21 20:20: PT 13.8, INR 1.1, APTT 32.3 01/15/21 20:55: Lactic Acid 1.3 01/16/21 06:10: WBC 7.0, RBC 4.10 L, Hgb 12.1 L, Hct 38.7 L, MCV 94.4 H, MCH 29.5, MCHC 31.3 L, Plt Count 311, MPV 10.4, Immature Gran % (Auto) 0.400, Neut % (Auto) 57.9, Lymph % (Auto) 29.3, [place] % (Auto) 12.3 H, Eos % (Auto) 0.0, Baso % (Auto) 0.1, Absolute Neuts (auto) 4.1, Nucleated RBC % 0 01/16/21 06:10: Sodium 141, Potassium 3.8, Chloride 109 H, Carbon Dioxide 27.0, Anion Gap 5, BUN 17, Creatinine 0.88, Est GFR (MDRD) Af Amer 110, Est GFR (MDRD) Non-Af 91, BUN/Creatinine Ratio 19.4, Glucose 88, Calcium 9.0, Magnesium 2.1 01/16/21 06:10: APTT 195.8 H* Rhythm: Sinus rhythm with episodes of nonsustained V. tach EKG: Narrow QRS complex tachycardia Radiography Diagnostic Testing: Radiology Impression Chest X-Ray 01/15/21 21:20 IMPRESSION: No acute disease Electronically Signed: Carlos Miller MD at 23:00 EDT , Service support ,
[2021-01-16 18:24] LABS: Partial Thromboplast Time 47.7 Seconds (24.1-36.2)
[2021-01-17] VITALS (13 sets, daily range): BP systolic 119–127; BP diastolic 44–67; PULSE 54–90; RESP 14–18; TEMP 36.6–37.5; O2SAT 90–97
[2021-01-17 01:10] LABS: Partial Thromboplast Time 61.8 Seconds (24.1-36.2)
[2021-01-17] MEDS: Budesonide Respules 0.5 MG/2 ML AMPUL.NEB. INHALATION ×2 (06:33→18:38)
[2021-01-17] MEDS: Ipratropium/Albuterol Sulfate 3 ML AMPUL.NEB INHALATION ×3 (06:33→18:38)
[2021-01-17] MEDS: Baclofen 10 MG Tablet PO ×3 (06:48→21:11)
[2021-01-17] MEDS: Pregabalin 75 MG Capsule PO ×3 (06:48→21:11)
[2021-01-17 07:30] LABS: Absolute Lymphocyte Count 2.31 X10^3/uL (0.83-4.51); Absolute Neutrophil Count 4.4 X10^3/uL (2.0-7.7); Basophil# 0.01 X10^3/uL; Basophil% 0.1 % (0-1); Hematocrit 41.4 % (40-54); Hemoglobin 13.2 g/dL (13.0-16.5); Lymphocyte # 2.31 X10^3/ul (0.83-4.51); Mean Corp Hgb Conc 31.9 g/dL (32-36); Mean Corpuscular Hgb 29.5 pg (27.0-32.0); Mean Corpuscular Volume 92.4 fL (80-94); Mean Platelet Vol. 10.4 fl (6.2-12.0); Monocyte# 0.91 X10^3/uL; Monocyte% 11.8 % (0-10); NRBC Flagged by Analyzer 0 % (0-5); Neutrophil # 4.44 X10^3/uL (2.7-7.7); Neutrophil % 57.8 % (47-70); Platelet Count 330 K/mm3 (150-450); RBC Distribution Width CV 14.7 % (11.6-14.6); RBC Distribution Width SD 50.4 fl (35.1-43.9); Red Blood Count 4.48 M/mm3 (4.6-6.2); White Blood Count 7.7 K/mm3 (4.4-11.0)
[2021-01-17 07:51] LABS: Partial Thromboplast Time 66.9 Seconds (24.1-36.2)
[2021-01-17 08:16] LABS: Anion Gap 5 (5-15); BUN 19 mg/dL (7-18); BUN/Creat Ratio 21.2 RATIO (10-20); Calcium,Total 9.6 mg/dL (8.5-10.1); Chloride 106 mmol/L (98-107); EST Glomerular Filtration Rate 89 mL/min (>60); Est Glom Filt Rate - Afr Amer 107 mL/min (>60); Estimated Creatinine Clearance 54.88 ml/min; Glucose 101 mg/dL (74-106); Sodium Level 141 mmol/L (136-145)
[2021-01-17] MEDS: HEPARIN/D5w 25,000 UNITS 25,000 UNITS/250 ML IV.SOLN. 8 UNITS IV (09:48)
[2021-01-17] MEDS: Clopidogrel Bisulfate 75 MG Tablet PO (09:49)
[2021-01-17] MEDS: Aspirin 81 MG TAB.CHEW PO (09:49)
[2021-01-17] MEDS: Metoprolol Tartrate 25 MG Tablet PO ×2 (09:50→21:11)
--- NOTE | 2021-01-17 11:56 | PCM.PN.HOSP ---
Documented by User: Madeleine Jean-Baptiste NP, DOCUMENT COORDINATOR-C 01/17/21 11:59 Subjective Subjective Patient seen and examined. Drowsy this morning. No noted distress. Plan for heart cath in a.m. Objective Data Objective Data Vital Signs: Vital Signs Temp Pulse Resp BP Pulse Ox 98.5 F 74 14 119/47 L 97 01/17/21 09:30 01/17/21 09:50 01/17/21 09:30 01/17/21 09:30 01/17/21 09:30 Oxygen Flow Rate (L/min) 2 Oxygen Delivery Method Nasal Cannula Weight: 152 lb 12.485 oz Body Mass Index (BMI) 28.8 Intake & Output: Intake and Output for Last 24 Hours 01/15/21 01/16/21 01/17/21 23:59 23:59 23:59 Intake Total 500 / 500 340.27 / 340.27 109.73 / 109.73 Balance 500 / 500 340.27 / 340.27 109.73 / 109.73 Lab / Micro Data Result Diagrams: 01/17/21 07:10 01/17/21 07:10 Labs: Laboratory Results - last 24 hr 01/16/21 17:47: APTT 47.7 H 01/17/21 00:50: APTT 61.8 H 01/17/21 07:10: WBC 7.7, RBC 4.48 L, Hgb 13.2, Hct 41.4, MCV 92.4, MCH 29.5, MCHC 31.9 L, RDW Std Deviation 50.4 H, RDW Coeff of Sujata 14.7 H, Plt Count 330, MPV 10.4, Immature Gran % (Auto) 0.300, Neut % (Auto) 57.8, Lymph % (Auto) 30.0, [place] % (Auto) 11.8 H, Eos % (Auto) 0.0, Baso % (Auto) 0.1, Absolute Neuts (auto) 4.4, Absolute Lymphs (auto) 2.31, Nucleated RBC % 0 01/17/21 07:10: Sodium 141, Potassium 4.0, Chloride 106, Carbon Dioxide 30.0, Anion Gap 5, BUN 19 H, Creatinine 0.90, Estim Creat Clear Calc 54.88, Est GFR (MDRD) Af Amer 107, Est GFR (MDRD) Non-Af 89, BUN/Creatinine Ratio 21.2 H, Glucose 101, Calcium 9.6 01/17/21 07:10: APTT 66.9 H Physical Exam Const alert, oriented x3 and no apparent distress Orientation / Consciousness: awake, oriented to person, oriented to place and oriented to time HEENT normocephalic and moist oral mucous membranes Eyes PERRL, EOMs intact bilaterally and conjunctivae normal Neck no lymphadenopathy Resp normal respiratory effort and clear to auscultation bilaterally Cardio regular rate, regular rhythm and no murmurs Peripheral Pulses: pulses 2+ throughout GI normal to inspection, nondistended, normoactive bowel sounds, non-tender and non-distended Extremity normal to inspection Skin no rashes or lesions noted Lesions: no lesions Rashes: no rashes Trauma: no lacerations or abrasions Neuro CN's II-XII intact bilaterally, no focal motor deficits, no sensory deficits noted and deep tendon reflexes 2+ bilaterally Psych mental status grossly normal and affect normal Assessment & Plan Assessment/Plan (1) Cardiac dysrhythmia: PLAN: 1. Cardiac arrhythmia/paroxysmal ventricular tachycardia-cardiology consulted. Received adenosine x2 in ER. Placed on amiodarone drip however subsequently developed bradycardia and this was discontinued. Continue home beta-janet regimen. Medication adjustments per cardiology recommendations. Patient underwent 30-day event monitor in 2019 that demonstrated premature atrial complexes, PVCs and 4-5 beat run of wide-complex tachycardia. Echocardiogram ordered. Troponin negative. On heparin drip. Plan for heart cath in a.m. 2. CAD with history of CABG-on aspirin, statin, Plavix, metoprolol. 3. History of paroxysmal atrial fibrillation-on metoprolol. Not on anticoagulation. 4. Hypertension-stable, continue current regimen. 5. Hyperlipidemia-continue statin. 6. Asthma/COPD overlap syndrome with chronic hypoxic respiratory failure-no exacerbation. Continue supplement oxygen to maintain O2 at or above 90%. 7. Tobacco dependence-in remission. DVT prophylaxis-heparin drip. This patient was seen by KAI Flores under the supervision of Dr. Pollard. Documented by User: Dr. Jose Pollard, 01/17/21 18:28 Objective Data Lab / Micro Data Result Diagrams: 01/17/21 07:10 01/17/21 07:10 Charges/Coding Addendum Addendum: Patient was seen and examined today independently of Madeleine Jean-Baptiste, he had to be taken off amiodarone due to bradycardia. Patient will undergo a cardiac catheterization tomorrow. On examination he appeared in good health and spirits. Vital signs as documented. Skin warm and dry and without overt rashes. Neck without JVD, neck was supple, trachea midline, thyroid was normal. Lungs clear bilaterally, normal air movement was noted. Heart exam notable for regular rhythm, normal sounds and absence of murmurs, rubs or gallops. Abdomen unremarkable and without evidence of organomegaly, masses, or abdominal aortic enlargement. Bowel sounds are present, abdomen is not distended. Extremities nonedematous, no cyanosis was noted, no clubbing was noted. Neuro: Cranial nerves II through XII are grossly intact, no focal motor deficits were noted, sensation to light touch and pinprick intact, motor exam 5/5 throughout. Psych: Patient is alert and oriented x3, he does not appear anxious or depressed, he does not appear agitated. I have reviewed Madeleine Jean-Baptiste's progress note including her medical assessment and plan of care and endorse it. Visit Charges Inpatient E&M: 65785 Subs Hosp L2
--- NOTE | 2021-01-17 13:33 | PCM.PN.CARD ---
Subjective Subjective Seen and evaluated today feeling better no symptoms reported. Objective Data Vital Signs: Vital Signs Temp Pulse Resp BP Pulse Ox 98.5 F 74 14 119/47 L 97 01/17/21 09:30 01/17/21 09:50 01/17/21 09:30 01/17/21 09:30 01/17/21 09:30 Oxygen Flow Rate (L/min) 2 Oxygen Delivery Method Nasal Cannula Weight: 152 lb 12.485 oz Body Mass Index (BMI) 28.8 Intake & Output: Intake and Output for Last 24 Hours 01/15/21 01/16/21 01/17/21 23:59 23:59 23:59 Intake Total 500 / 500 340.27 / 340.27 109.73 / 109.73 Balance 500 / 500 340.27 / 340.27 109.73 / 109.73 Lab / Micro Data Result Diagrams: 01/17/21 07:10 01/17/21 07:10 Labs: Laboratory Results - last 24 hr 01/16/21 17:47: APTT 47.7 H 01/17/21 00:50: APTT 61.8 H 01/17/21 07:10: WBC 7.7, RBC 4.48 L, Hgb 13.2, Hct 41.4, MCV 92.4, MCH 29.5, MCHC 31.9 L, RDW Std Deviation 50.4 H, RDW Coeff of Sujata 14.7 H, Plt Count 330, MPV 10.4, Immature Gran % (Auto) 0.300, Neut % (Auto) 57.8, Lymph % (Auto) 30.0, [place] % (Auto) 11.8 H, Eos % (Auto) 0.0, Baso % (Auto) 0.1, Absolute Neuts (auto) 4.4, Absolute Lymphs (auto) 2.31, Nucleated RBC % 0 01/17/21 07:10: Sodium 141, Potassium 4.0, Chloride 106, Carbon Dioxide 30.0, Anion Gap 5, BUN 19 H, Creatinine 0.90, Estim Creat Clear Calc 54.88, Est GFR (MDRD) Af Amer 107, Est GFR (MDRD) Non-Af 89, BUN/Creatinine Ratio 21.2 H, Glucose 101, Calcium 9.6 01/17/21 07:10: APTT 66.9 H Cardiology Labs/Tests 01/16/21 17:47: APTT 47.7 H 01/17/21 00:50: APTT 61.8 H 01/17/21 07:10: WBC 7.7, RBC 4.48 L, Hgb 13.2, Hct 41.4, MCV 92.4, MCH 29.5, MCHC 31.9 L, Plt Count 330, MPV 10.4, Immature Gran % (Auto) 0.300, Neut % (Auto) 57.8, Lymph % (Auto) 30.0, [place] % (Auto) 11.8 H, Eos % (Auto) 0.0, Baso % (Auto) 0.1, Absolute Neuts (auto) 4.4, Nucleated RBC % 0 01/17/21 07:10: Sodium 141, Potassium 4.0, Chloride 106, Carbon Dioxide 30.0, Anion Gap 5, BUN 19 H, Creatinine 0.90, Est GFR (MDRD) Af Amer 107, Est GFR (MDRD) Non-Af 89, BUN/Creatinine Ratio 21.2 H, Glucose 101, Calcium 9.6 01/17/21 07:10: APTT 66.9 H Rhythm: Normal sinus rhythm Physical Exam Narrative Review of the cardiac telemetry reveals normal sinus Cardiac examination S1-S2 regular there is no murmur Chest examination clear to auscultation bilateral Examination of abdomen soft no palpable mass. Examination lower extremity no clubbing no cyanosis no lower extremity edema Examination of the central nervous system no focal neurological deficit. Assessment & Plan Assessment/Plan (1) Paroxysmal atrial fibrillation: (2) Left carotid artery stenosis: (3) Peripheral vascular occlusive disease: (4) Smoking greater than 40 pack years: (5) Cardiac dysrhythmia: PLAN: 70-year-old patient with known CAD, history of CABG has been on treatment with aspirin, Plavix beta-janet and statin. Patient had a history of tobacco dependence, asthma COPD On this admission he had cardiac dysrhythmia with narrow QRS complex tachycardia and episode of nonsustained ventricular tachycardia on cardiac telemetry. There is no recent cardiac evaluation, carotid bypass surgery was done in 2013. Cardiac recommendation and plan; 1. Continue current medication 2. Continue monitoring telemetry We will plan to evaluate with Lexiscan sestamibi myocardial fusion study and discuss the need of cardiac catheterization based on results of stress test. Patient has no active symptoms of chest pain/high sensitive troponins has been negative
[2021-01-17] MEDS: 0.9% Saline Lock 10 ML Syringe IV (20:39)
[2021-01-18] VITALS (11 sets, daily range): BP systolic 108–127; BP diastolic 49–66; PULSE 63–85; RESP 15–20; TEMP 36.9–37.2; O2SAT 91–100
--- NOTE | 2021-01-18 04:20 | EKG12_ITS ---
Test Reason : AM EKG Blood Pressure : / mmHG Vent. Rate : 062 BPM Atrial Rate : 062 BPM P-R Int : 112 ms QRS Dur : 092 ms QT Int : 422 ms P-R-T Axes : 076 -29 -74 degrees QTc Int : 428 ms Normal sinus rhythm Low voltage QRS ST & T wave abnormality, consider inferior ischemia Abnormal ECG When compared with ECG of 15-JAN-2021 21:05, MANUAL COMPARISON REQUIRED, DATA IS UNCONFIRMED Confirmed by ROB VENEGAS, KHANG ([id number]), digital editor MORGAN JOSEPH ([id number]) on 01/19/2021 10:52:04 AM Referred By: HERMELINDA Confirmed By:KHANG RIVAS MD
--- NOTE | 2021-01-18 05:00 | EKG12_ITS ---
Test Reason : PALPATIONS Blood Pressure : / mmHG Vent. Rate : 211 BPM Atrial Rate : 241 BPM P-R Int : 000 ms QRS Dur : 120 ms QT Int : 256 ms P-R-T Axes : 000 268 084 degrees QTc Int : 480 ms Wide QRS tachycardia Right bundle branch block pattern Abnormal ECG Confirmed by CRISTA VENEGAS, STEVE ([id number]), staff editor MORGAN JOSEPH ([id number]) on 01/18/2021 2:19:23 PM Referred By: PL/LEANA Confirmed By:STEVE TOBIN MD
[2021-01-18] MEDS: Clopidogrel Bisulfate 75 MG Tablet PO (06:11)
[2021-01-18] MEDS: Pregabalin 75 MG Capsule PO ×2 (06:11→15:12)
[2021-01-18] MEDS: Aspirin 81 MG TAB.CHEW PO (06:11)
[2021-01-18] MEDS: Baclofen 10 MG Tablet PO ×2 (06:11→15:12)
[2021-01-18] MEDS: 0.9% Saline Lock 10 ML Syringe IV (06:17)
[2021-01-18] MEDS: Ipratropium/Albuterol Sulfate 3 ML AMPUL.NEB INHALATION ×2 (06:40→12:38)
[2021-01-18 07:20] LABS: Absolute Lymphocyte Count 2.16 X10^3/uL (0.83-4.51); Absolute Neutrophil Count 5.7 X10^3/uL (2.0-7.7); Basophil# 0.01 X10^3/uL; Basophil% 0.1 % (0-1); Hematocrit 41.2 % (40-54); Hemoglobin 12.9 g/dL (13.0-16.5); Lymphocyte # 2.16 X10^3/ul (0.83-4.51); Lymphocyte % 23.8 % (19-41); Mean Corp Hgb Conc 31.3 g/dL (32-36); Mean Corpuscular Hgb 29.1 pg (27.0-32.0); Mean Corpuscular Volume 92.8 fL (80-94); Mean Platelet Vol. 10.6 fl (6.2-12.0); Monocyte# 1.15 X10^3/uL; Monocyte% 12.7 % (0-10); NRBC Flagged by Analyzer 0 % (0-5); Neutrophil # 5.72 X10^3/uL (2.7-7.7); Neutrophil % 63.2 % (47-70); Platelet Count 327 K/mm3 (150-450); RBC Distribution Width CV 14.7 % (11.6-14.6); RBC Distribution Width SD 50.6 fl (35.1-43.9); Red Blood Count 4.44 M/mm3 (4.6-6.2); White Blood Count 9.1 K/mm3 (4.4-11.0)
[2021-01-18 07:28] LABS: Anion Gap 6 (5-15); BUN 20 mg/dL (7-18); BUN/Creat Ratio 24.2 RATIO (10-20); Calcium,Total 9.4 mg/dL (8.5-10.1); Chloride 106 mmol/L (98-107); Creatinine, Serum 0.83 mg/dL (0.70-1.30); EST Glomerular Filtration Rate 97 mL/min (>60); Est Glom Filt Rate - Afr Amer 118 mL/min (>60); Estimated Creatinine Clearance 59.51 ml/min; Glucose 94 mg/dL (74-106); Potassium 4.2 mmol/L (3.5-5.1); Sodium Level 142 mmol/L (136-145)
--- NOTE | 2021-01-18 07:30 | CPS ---
no pulmicort available in med machine in pcu
[2021-01-18 07:39] LABS: Partial Thromboplast Time 56.2 Seconds (24.1-36.2)
--- NOTE | 2021-01-18 09:00 | NURSING ---
To stress lab.
--- NOTE | 2021-01-18 11:07 | CASEMGMT ---
[facility], the following are in-network tertiary facilities: [facility], [facility], [facility], [facility], [facility], [facility], [facility], and . Ethan FLANNERY CM
--- NOTE | 2021-01-18 12:10 | CASEMGMT ---
PRUDENCIO KANG Face to Face with patient for initial transition planning/care coordination assessment. RN CM introduced self and role at [facility] [place]. Patient lying in bed, alert and oriented. Patient willing to participate in assessment and is able to answer all questions appropriately. Care providers, pharmacy, and demographics verified. Patient wishes to discharge home, denies need for home health at this time. Patient states he has no further needs or concerns at this time. CM to follow for discharge planning needs that may arise. PCP: Al Specialists: Westley complex case manager; Francoise, director appointment Preferred Pharmacy: [facility] Insurance: [place] [facility] Pres[facility] Benefit: yes Living Will/HPOA: none LNOK: sister Living Arrangements: Patient lives with sister in a first floor apartment with no steps to enter the home. Patient states he is independent at home. Transportation: self DME/HHC: Patient states he has shower chair, raised toilet, cane, grab bars, nebulizer, and home oxygen 2 lpm at night. Patient has concentrator with portable tanks that he can refill from his concentrator. Patient denies previous HHC. Disposition Plan: Patient to discharge home with family support and follow-up plans in place. Carlita NYE, RN, CM
--- NOTE | 2021-01-18 13:02 | STRESSREP ---
Stress Test Report For oncologic myocardial perfusion stress test. 70-year-old male with a history of chest pain. Stress protocol: Resting EKG demonstrates normal sinus rhythm with a rate of 70 bpm. Resting blood pressure is 124/78 mmHg. 0.4 mg of regadenoson was infused per usual protocol followed by rapid intravenous saline flush injection continuous EKG monitoring was performed. The maximum heart rate attained was 91 bpm which was 61% of max infected heart rate. At rest there were no ST or T wave changes noted to suggest abnormal flow reserve and at peak infusion nonspecific ST changes were noted with did not meet the criteria for ischemia. The maximum blood pressure was 124/78 mmHg. Myocardial perfusion protocol. 11.3 mCi of technetium 99m sestamibi was injected at rest. 0.4 mg of regadenoson was infused per usual protocol. At peak infusion 31.8 mCi of technetium 99m sestamibi was injected stress images were obtained stress and rest images were reconstructed and compared in the short axis vertical long and horizontal long axis. Gated images were also obtained to Perfusion SPECT analysis: Review of the stress images demonstrate normal uptake of tracer noted in all areas of the myocardium. The resting images similarly demonstrate normal uptake of tracer noted in all areas of the myocardium. No obvious areas of reversibility are noted to suggest ischemia. Gated SPECT analysis: The gated ejection fraction is noted to be 40%. Conclusion: Mild cardiomyopathy. No ischemic defects noted.
[2021-01-18 13:23] LABS: Partial Thromboplast Time 27.6 Seconds (24.1-36.2)
[2021-01-18] MEDS: Metoprolol Tartrate 25 MG Tablet PO (14:34)
--- NOTE | 2021-01-18 15:00 | PCM.DC ---
Discharge Instructions Diet Discharge Diet: Low fat / Low cholesterol Activity Discharge Activity: Return to Normal Activity Dressing / Incision Call your doctor if you observe: Shortness of breath, Dizziness, Fainting spells, Chest pain and Increased palpitations (irregular heartbeat) Follow Up Care Test Results: Test results from this visit will be discussed in further detail at your follow-up appointment, if applicable. Discharge Plan Admission Admit Date/Time: 01/16/21 13:23 Primary Reason for Your Visit: Cardiac arrhythmia Attending Provider: Jose Pollard Primary Care Provider: Jb Melendez Chi Consulting Providers: Sonia Don Discharge Orders/Prescriptions Prescriptions: New metoprolol tartrate 25 mg Tablet 25 mg PO BID Qty: 60 RF: 0 Eliquis 5 mg tablet 5 mg PO BID Qty: 60 RF: 0 Continued aspirin 81 mg tablet,delayed release (DR/EC) 81 mg PO DAILY RF: 0 spironolactone 25 mg tablet 25 mg PO DAILY RF: 0 Trelegy Ellipta 200-62.5-25 mcg blister with device 1 inh inhalation DAILY Qty: 60 RF: 6 albuterol sulfate 90 mcg/actuation HFA aerosol inhaler 2 puff inhalation Q4H PRN (Reason: shortness of breath or wheezing) Qty: 8.5 RF: 6 pregabalin 75 mg capsule 75 mg PO TID PRN (Reason: Pain) RF: 0 atorvastatin 80 mg tablet 80 mg PO DAILY RF: 0 icosapent ethyl 1 gram capsule 2 g PO BID RF: 0 guaifenesin 400 mg tablet 400 mg PO BID RF: 0 naproxen sodium 220 mg tablet 220 mg PO DAILY RF: 0 baclofen 10 mg tablet 10 mg PO TID PRN (Reason: Pain) RF: 0 tramadol 50 mg tablet 50 mg PO .5XD PRN (Reason: Pain) RF: 0 clopidogrel 75 MG tablet 75 mg PO DAILY RF: 0 loratadine 10 MG tablet 10 mg PO DAILY RF: 0 allopurinol 100 MG tablet 100 mg PO DAILY RF: 0 qydrnkcg-dlh-DW-lycopen-lutein 1 EACH tablet 1 tab PO DAILY RF: 0 bupropion HCl (smoking deter) 150 mg tablet extended release 12 hr 150 mg PO BID RF: 0 Discontinued metoprolol succinate 25 MG tablet extended release 24 hr 25 mg PO DAILY RF: 0 Referrals / Follow Up: Parmjit Osorio MD [STAFF PHYSICIAN] - See Referral Note (As scheduled 02/01/2021) bJ Melendez Chi, MD [Primary Care Provider] - In 1 Week Ronnie Martines NP, [facility] [Nurse Practitioner] - See Referral Note (As scheduled 02/08/2021) Disposition Disposition (needs filled in before D/C Order can be placed): Home, Self Care
--- NOTE | 2021-01-18 15:09 | DS.PCM_ITS ---
Documented by User: Madeleine Jean-Baptiste NP, INTERNATIONAL NURSE-C 01/18/21 15:41 Providers Date of Admission: 01/16/21 Date of Discharge: 01/18/21 Primary Care Physician: Dr. Jb Melendez MD Consultations 01/16/21 00:18 Consult: Cardiology Routine Consulting Provider: Sonia Don Reason for Consult: Dysrhythmia EMERGENT Consult: No MD Notified: Yes Date Notified: 01/15/21 Time Notified: 23:29 Method of Notification: Verbal Comments:: ED discussed the case with Dr. Don Reason For Visit: DYSRHYTHMIA Diagnosis Discharge Diagnosis (1) Paroxysmal atrial fibrillation: Status: Chronic Code(s): I48.0 - Paroxysmal atrial fibrillation (2) Left carotid artery stenosis: Status: Chronic Code(s): I65.22 - Occlusion and stenosis of left carotid artery (3) Peripheral vascular occlusive disease: Status: Chronic Code(s): I73.9 - Peripheral vascular disease, unspecified (4) Smoking greater than 40 pack years: Status: Chronic Code(s): F17.210 - Nicotine dependence, cigarettes, uncomplicated (5) Cardiac dysrhythmia: Status: Acute Code(s): I49.9 - Cardiac arrhythmia, unspecified Medications at Discharge Home Medications loratadine 10 mg PO DAILY 06/12/19 aspirin 81 mg tablet,delayed release 81 mg PO DAILY 06/19/19 allopurinol 100 mg PO DAILY 07/17/20 xtadmnqp-hez-FH-lycopen-lutein 1 tab PO DAILY 07/17/20 atorvastatin 80 mg tablet 80 mg PO DAILY tab 09/17/20 baclofen 10 mg tablet 10 mg PO TID PRN tab 09/17/20 bupropion HCl (smoking deter) 150 mg tablet,12 hr sustained-release(smoking deterrent) 150 mg PO BID tab 09/17/20 guaifenesin 400 mg tablet 400 mg PO BID tab 09/17/20 icosapent ethyl 1 gram capsule 2 g PO BID cap 09/17/20 pregabalin 75 mg capsule 75 mg PO TID PRN cap 09/17/20 spironolactone 25 mg tablet 25 mg PO DAILY tab 09/17/20 tramadol 50 mg tablet 50 mg PO .5XD PRN tab 09/17/20 albuterol sulfate 90 mcg/actuation aerosol inhaler 2 puff INHALATION Q4H PRN #8.5 g 12/22/20 fluticasone fur. 200 mcg-umeclid 62.5 mcg-vilant 25 mcg inhalat.powder 1 inh INHALATION DAILY #60 ea 12/22/20 apixaban [Eliquis] 5 mg PO BID #60 tab 01/18/21 metoprolol tartrate 25 mg PO BID #60 tab 01/18/21 omeprazole 20 mg PO DAILY #30 cap 01/18/21 Hospital Course Operations None Procedures 2-D Echocardiogram and Nuclear stress test Summary of Care Provided Minutes Spent on Discharge: 35 Hospital Course: Patient is a 70-year-old male admitted 01/15/2021 due to palpitations and lightheadedness. 1. Cardiac arrhythmia/paroxysmal ventricular tachycardia-cardiology consulted during admission. Received adenosine x2 in ER. Placed on amiodarone drip however subsequently developed bradycardia and this was discontinued. Home metoprolol increased to 25 mg twice daily. Patient underwent 30-day event monito r in 2019 that demonstrated premature atrial complexes, PVCs and 4-5 beat run of wide-complex tachycardia. Troponin negative. Echocardiogram demonstrates an EF of 40%, mild tricuspid valve insufficiency, pulmonary artery systolic pressure 36 mmHg. Further underwent stress test which was negative for ischemia, mild cardiomyopathy. Continue metoprolol, initiated on Eliquis. Follow-up with cardiology as scheduled 02/08/2021. Follow-up with PCP in 1 week. 2. CAD with history of CABG-on aspirin, statin, metoprolol. Plavix discontinued given initiation of Eliquis. 3. History of paroxysmal atrial fibrillation-on metoprolol. Initiated on Eliquis 5 mg twice daily. 4. Hypertension-stable, continue current regimen. 5. Hyperlipidemia-continue statin. 6. Asthma/COPD overlap syndrome with chronic hypoxic respiratory failure-no exacerbation. Continue supplement oxygen to maintain O2 at or above 90%. 7. Tobacco dependence-in remission. Physical Exam Const alert, oriented x3 and no apparent distress Orientation / Consciousness: awake, oriented to person, oriented to place and oriented to time HEENT normocephalic and moist oral mucous membranes Eyes PERRL, EOMs intact bilaterally and conjunctivae normal Neck no lymphadenopathy Resp normal respiratory effort and clear to auscultation bilaterally Cardio regular rate, regular rhythm and no murmurs Peripheral Pulses: pulses 2+ throughout GI normal to inspection, nondistended, normoactive bowel sounds, non-tender and non-distended Extremity normal to inspection Skin no rashes or lesions noted Lesions: no lesions Rashes: no rashes Trauma: no lacerations or abrasions Neuro CN's II-XII intact bilaterally, no focal motor deficits, no sensory deficits noted and deep tendon reflexes 2+ bilaterally Psych mental status grossly normal and affect normal Patient seen and examined prior to discharge. Physical assessment as noted above. Patient is stable for discharge with follow up recommendations as noted above. This patient was seen by KAI Flores under the supervision of Dr. Pollard. Weight / BMI Weight Weight: 152 lb 12.485 oz Body Mass Index (BMI) 28.8 ABG / Lab / Microbiology Data Result Diagrams: 01/18/21 06:46 01/18/21 06:46 Laboratory: Laboratory Results - last 24 hr 01/18/21 06:46: APTT 56.2 H 01/18/21 06:46: WBC 9.1, RBC 4.44 L, Hgb 12.9 L, Hct 41.2, MCV 92.8, MCH 29.1, MCHC 31.3 L, RDW Std Deviation 50.6 H, RDW Coeff of Sujata 14.7 H, Plt Count 327, MPV 10.6, Immature Gran % (Auto) 0.200, Neut % (Auto) 63.2, Lymph % (Auto) 23.8, [place] % (Auto) 12.7 H, Eos % (Auto) 0.0, Baso % (Auto) 0.1, Absolute Neuts (auto) 5.7, Absolute Lymphs (auto) 2.16, Nucleated RBC % 0 01/18/21 06:46: Sodium 142, Potassium 4.2, Chloride 106, Carbon Dioxide 30.0, Anion Gap 6, BUN 20 H, Creatinine 0.83, Estim Creat Clear Calc 59.51, Est GFR (MDRD) Af Amer 118, Est GFR (MDRD) Non-Af 97, BUN/Creatinine Ratio 24.2 H, Glucose 94, Calcium 9.4 01/18/21 13:05: APTT 27.6 Radiography Diagnostic Testing: Radiology Impression Echocardiogram 01/16/21 11:55 Interpretation Summary Normal LV size. The estimated ejection fraction is 40 %. There is mild global hypokinesis of the left ventricle. Mild (1+) tricuspid valve insufficiency. Pulmonary artery systolic pressure is 36 mmHg. Mild to moderate segmental systolic dysfunction (see wall motion). Ordering Physician: Sonia Don Referring Physician: Jb Melendez Chi Performed By: Karie Martines RDCS, RVT D/C Instructions Discharge Diet: Low fat / Low cholesterol Call your doctor if you observe: Shortness of breath, Dizziness, Fainting spells, Chest pain and Increased palpitations (irregular heartbeat) Meaningful Use Info Meaningful Use Diagnoses (Choose all that apply): None applicable Discharge Plan Admission Admit Date/Time: 01/16/21 13:23 Primary Reason for Your Visit: Cardiac arrhythmia Attending Provider: Jose Pollard Primary Care Provider: Jb Melendez Chi Consulting Providers: Sonia Don Discharge Orders/Prescriptions Prescriptions: New metoprolol tartrate 25 mg Tablet 25 mg PO BID Qty: 60 RF: 0 Eliquis 5 mg tablet 5 mg PO BID Qty: 60 RF: 0 omeprazole 20 mg capsule,delayed release(DR/EC) 20 mg PO DAILY Qty: 30 RF: 0 Continued aspirin 81 mg tablet,delayed release (DR/EC) 81 mg PO DAILY RF: 0 spironolactone 25 mg tablet 25 mg PO DAILY RF: 0 Trelegy Ellipta 200-62.5-25 mcg blister with device 1 inh inhalation DAILY Qty: 60 RF: 6 albuterol sulfate 90 mcg/actuation HFA aerosol inhaler 2 puff inhalation Q4H PRN (Reason: shortness of breath or wheezing) Qty: 8.5 RF: 6 pregabalin 75 mg capsule 75 mg PO TID PRN (Reason: Pain) RF: 0 atorvastatin 80 mg tablet 80 mg PO DAILY RF: 0 icosapent ethyl 1 gram capsule 2 g PO BID RF: 0 guaifenesin 400 mg tablet 400 mg PO BID RF: 0 baclofen 10 mg tablet 10 mg PO TID PRN (Reason: Pain) RF: 0 tramadol 50 mg tablet 50 mg PO .5XD PRN (Reason: Pain) RF: 0 loratadine 10 MG tablet 10 mg PO DAILY RF: 0 allopurinol 100 MG tablet 100 mg PO DAILY RF: 0 tgppiwbt-jym-HC-lycopen-lutein 1 EACH tablet 1 tab PO DAILY RF: 0 bupropion HCl (smoking deter) 150 mg tablet extended release 12 hr 150 mg PO BID RF: 0 Discontinued naproxen sodium 220 mg tablet 220 mg PO DAILY RF: 0 clopidogrel 75 MG tablet 75 mg PO DAILY RF: 0 metoprolol succinate 25 MG tablet extended release 24 hr 25 mg PO DAILY RF: 0 Referrals / Follow Up: Parmjit Osorio MD [STAFF PHYSICIAN] - 02/01/21 1:00 pm (As scheduled 02/01/2021) Jb Melendez Chi, MD [Primary Care Provider] - In 1 Week (Office should be calling you to schedule, please call them if you don't hear from them on 01/19.) Ronnie Martines NP, INTERNATIONAL NURSE-C [Nurse Practitioner] - 02/08/21 9:30 am (As scheduled 02/08/2021) Disposition Disposition (needs filled in before D/C Order can be placed): Home, Self Care Documented by User: Dr. Jose Pollard DO 01/18/21 21:16 Providers Date of Admission: 01/16/21 Reason For Visit: DYSRHYTHMIA Medications at Discharge Home Medications loratadine 10 mg PO DAILY 06/12/19 aspirin 81 mg tablet,delayed release 81 mg PO DAILY 06/19/19 allopurinol 100 mg PO DAILY 07/17/20 ebevyfun-sly-QW-lycopen-lutein 1 tab PO DAILY 07/17/20 atorvastatin 80 mg tablet 80 mg PO DAILY tab 09/17/20 baclofen 10 mg tablet 10 mg PO TID PRN tab 09/17/20 bupropion HCl (smoking deter) 150 mg tablet,12 hr sustained-release(smoking deterrent) 150 mg PO BID tab 09/17/20 guaifenesin 400 mg tablet 400 mg PO BID tab 09/17/20 icosapent ethyl 1 gram capsule 2 g PO BID cap 09/17/20 pregabalin 75 mg capsule 75 mg PO TID PRN cap 09/17/20 spironolactone 25 mg tablet 25 mg PO DAILY tab 09/17/20 tramadol 50 mg tablet 50 mg PO .5XD PRN tab 09/17/20 albuterol sulfate 90 mcg/actuation aerosol inhaler 2 puff INHALATION Q4H PRN #8.5 g 12/22/20 fluticasone fur. 200 mcg-umeclid 62.5 mcg-vilant 25 mcg inhalat.powder 1 inh INHALATION DAILY #60 ea 12/22/20 apixaban [Eliquis] 5 mg PO BID #60 tab 01/18/21 metoprolol tartrate 25 mg PO BID #60 tab 01/18/21 omeprazole 20 mg PO DAILY #30 cap 01/18/21 ABG / Lab / Microbiology Data Result Diagrams: 01/18/21 06:46 01/18/21 06:46 Discharge Plan Admission Admit Date/Time: 01/16/21 13:23 Primary Reason for Your Visit: Cardiac arrhythmia Attending Provider: Jose Pollard Primary Care Provider: Jb Melendez Chi Consulting Providers: Sonia Don Discharge Orders/Prescriptions Prescriptions: New metoprolol tartrate 25 mg Tablet 25 mg PO BID Qty: 60 RF: 0 Eliquis 5 mg tablet 5 mg PO BID Qty: 60 RF: 0 omeprazole 20 mg capsule,delayed release(DR/EC) 20 mg PO DAILY Qty: 30 RF: 0 Continued aspirin 81 mg tablet,delayed release (DR/EC) 81 mg PO DAILY RF: 0 spironolactone 25 mg tablet 25 mg PO DAILY RF: 0 Trelegy Ellipta 200-62.5-25 mcg blister with device 1 inh inhalation DAILY Qty: 60 RF: 6 albuterol sulfate 90 mcg/actuation HFA aerosol inhaler 2 puff inhalation Q4H PRN (Reason: shortness of breath or wheezing) Qty: 8.5 RF: 6 pregabalin 75 mg capsule 75 mg PO TID PRN (Reason: Pain) RF: 0 atorvastatin 80 mg tablet 80 mg PO DAILY RF: 0 icosapent ethyl 1 gram capsule 2 g PO BID RF: 0 guaifenesin 400 mg tablet 400 mg PO BID RF: 0 baclofen 10 mg tablet 10 mg PO TID PRN (Reason: Pain) RF: 0 tramadol 50 mg tablet 50 mg PO .5XD PRN (Reason: Pain) RF: 0 loratadine 10 MG tablet 10 mg PO DAILY RF: 0 allopurinol 100 MG tablet 100 mg PO DAILY RF: 0 nixaygfj-tnx-WG-lycopen-lutein 1 EACH tablet 1 tab PO DAILY RF: 0 bupropion HCl (smoking deter) 150 mg tablet extended release 12 hr 150 mg PO BID RF: 0 Discontinued naproxen sodium 220 mg tablet 220 mg PO DAILY RF: 0 clopidogrel 75 MG tablet 75 mg PO DAILY RF: 0 metoprolol succinate 25 MG tablet extended release 24 hr 25 mg PO DAILY RF: 0 Referrals / Follow Up: Parmjit Osorio MD [STAFF PHYSICIAN] - 02/01/21 1:00 pm (As scheduled 02/01/2021) Jb Melendez Chi, MD [Primary Care Provider] - In 1 Week (Office should be calling you to schedule, please call them if you don't hear from them on 01/19.) Ronnie Martines NP, INTERNATIONAL NURSE-C [Nurse Practitioner] - 02/08/21 9:30 am (As scheduled 02/08/2021) Disposition Disposition (needs filled in before D/C Order can be placed): Home, Self Care Charges/Coding Addendum Addendum: Patient was seen and examined independently of Madeleine Jean-Baptiste today, he underwent a cardiac stress test today and it showed no evidence of reversible ischemia. Cardiology stated the patient was stable for discharge on aspirin and Eliquis as well as his other medications, his Plavix was stopped. On examination he appeared in good health and spirits. Vital signs as documented. Skin warm and dry and without overt rashes. Neck without JVD, neck was supple, trachea midline, thyroid was normal. Lungs clear bilaterally, normal air movement was noted. Heart exam notable for regular rhythm, normal sounds and absence of murmurs, rubs or gallops. Abdomen unremarkable and without evidence of organomegaly, masses, or abdominal aortic enlargement. Bowel sounds are present, abdomen is not distended. Extremities nonedematous, no cyanosis was no al, no clubbing was noted. Neuro: Cranial nerves II through XII are grossly intact, no focal motor deficits were noted, sensation to light touch and pinprick intact, motor exam 5/5 throughout. Psych: Patient is alert and oriented x3, he does not appear anxious or depressed, he does not appear jeff tated. Patient appears stable for discharge at this time, I have reviewed Madeleine Jean-Baptiste's discharge summary including her medical assessment and plan of care and endorse it. Visit Charges Inpatient E&M: 70373 Subs Hosp L2
--- NOTE | 2021-01-18 15:27 | CASEMGMT ---
PRUDENCIO KANG called [facility] to inquired about Eliquis cost, patient has $4 co-pay for Eliquis.
--- NOTE | 2021-01-18 15:52 | PHA.DC.MC ---
Pharmacy Service has performed discharge medication reconciliation and counseling for this patient. 1. APIXABAN 5MG PO BID 2. METOPROLOL TARTRATE 25MG PO BID 3. OMEPRAZOLE 20MG PO DAILY The patient's discharge medication list was reviewed for discrepancies and discrepancies were resolved. Home Medications loratadine 10 mg PO DAILY 06/12/19 aspirin 81 mg tablet,delayed release 81 mg PO DAILY 06/19/19 allopurinol 100 mg PO DAILY 07/17/20 gzzjmpip-aqh-NG-lycopen-lutein 1 tab PO DAILY 07/17/20 atorvastatin 80 mg tablet 80 mg PO DAILY tab 09/17/20 baclofen 10 mg tablet 10 mg PO TID PRN tab 09/17/20 bupropion HCl (smoking deter) 150 mg tablet,12 hr sustained-release(smoking deterrent) 150 mg PO BID tab 09/17/20 guaifenesin 400 mg tablet 400 mg PO BID tab 09/17/20 icosapent ethyl 1 gram capsule 2 g PO BID cap 09/17/20 pregabalin 75 mg capsule 75 mg PO TID PRN cap 09/17/20 spironolactone 25 mg tablet 25 mg PO DAILY tab 09/17/20 tramadol 50 mg tablet 50 mg PO .5XD PRN tab 09/17/20 albuterol sulfate 90 mcg/actuation aerosol inhaler 2 puff INHALATION Q4H PRN #8.5 g 12/22/20 fluticasone fur. 200 mcg-umeclid 62.5 mcg-vilant 25 mcg inhalat.powder 1 inh INHALATION DAILY #60 ea 12/22/20 apixaban [Eliquis] 5 mg PO BID #60 tab 01/18/21 metoprolol tartrate 25 mg PO BID #60 tab 01/18/21 omeprazole 20 mg PO DAILY #30 cap 01/18/21 The patient was counseled on the following discharge medications and changes in medications for homegoing were reviewed. The Reason for Use, instructions for use, and potential side effects were reviewed for all new medications. The patient's questions regarding all of their medications were answered. The patient was able to verbally demonstrate an understanding of their discharge medications.
--- NOTE | 2021-01-18 16:03 | NURSING ---
This RN reviewed SN charting
--- NOTE | 2021-01-19 14:25 | CASEMGMT ---
PRUDENCIO CM Discharge Follow-up Phone Call: BOGDAN: Lu Strata: 3 Call Date: 01/19/21 Discharge Date: 01/18/21 Time of Call:1425 Duration: 1 min Admitting Diagnosis: dysrhythmia RN PEARL attempted to complete follow-up phone call after recent hospitalization. No answer, voice message left with return contact information.
== END 2021-01-18 17:21 | disposition home or self-care (01) | DRG 309 ==
LOC: ED 23:06 → PCU 01-16 00:54
PROVIDERS: Internal Medicine Interventional Cardiology; Nurse Practitioner Family; Admitting Provider Family Medicine; Emergency Provider Emergency Medicine; PCP Family Medicine Geriatric Medicine; Visit Provider Internal Medicine
DX: I47.2 Ventricular tachycardia (principal); J44.9 Chronic obstructive pulmonary disease, unspecified; I73.9 Peripheral vascular disease, unspecified; J96.11 Chronic respiratory failure with hypoxia; I48.0 Paroxysmal atrial fibrillation; E78.5 Hyperlipidemia, unspecified; I25.10 Atherosclerotic heart disease of native coronary artery without angina pectoris; I25.5 Ischemic cardiomyopathy; I65.22 Occlusion and stenosis of left carotid artery; R00.1 Bradycardia, unspecified; M19.90 Unspecified osteoarthritis, unspecified site; G25.3 Myoclonus; I12.9 Hypertensive chronic kidney disease with stage 1 through stage 4 chronic kidney disease, or unspecified chronic kidney disease; N18.1 Chronic kidney disease, stage 1; N40.0 Benign prostatic hyperplasia without lower urinary tract symptoms; Z95.1 Presence of aortocoronary bypass graft; F17.210 Nicotine dependence, cigarettes, uncomplicated; Z79.82 Long term (current) use of aspirin; Z79.899 Other long term (current) drug therapy; Z79.02 Long term (current) use of antithrombotics/antiplatelets; R06.02 Shortness of breath; Z23 Encounter for immunization
CPT/HCPCS: 36415; 71045; 78452; 80048; 83605; 83735; 83880; 84484; 85025; 85610; 85730; 90471; 93005; 93017; 93306; 94640; 96361; 96365; 96366; 96368; 96375; 96376; 99218; 99285; A9500; J7030; Q9957; A4216; C8929; G0378; J0153; J2785; J3490

== ENCOUNTER → 2021-01-21 16:09 | Outpatient (CLI) | payer MEDICARE, MEDICAID, SELFPAY ==
[2021-01-21 17:21] LABS: Absolute Lymphocyte Count 1.78 X10^3/uL (0.83-4.51); Absolute Neutrophil Count 4.4 X10^3/uL (2.0-7.7); Basophil# 0.01 X10^3/uL; Basophil% 0.1 % (0-1); Hemoglobin 12.6 g/dL (13.0-16.5); Lymphocyte # 1.78 X10^3/ul (0.83-4.51); Lymphocyte % 24.8 % (19-41); Mean Corp Hgb Conc 32.3 g/dL (32-36); Mean Corpuscular Hgb 29.8 pg (27.0-32.0); Mean Corpuscular Volume 92.2 fL (80-94); Mean Platelet Vol. 10.9 fl (6.2-12.0); Monocyte# 0.97 X10^3/uL; Monocyte% 13.5 % (0-10); NRBC Flagged by Analyzer 0 % (0-5); Neutrophil # 4.39 X10^3/uL (2.7-7.7); Neutrophil % 61.2 % (47-70); Platelet Count 338 K/mm3 (150-450); RBC Distribution Width CV 14.5 % (11.6-14.6); Red Blood Count 4.23 M/mm3 (4.6-6.2); White Blood Count 7.2 K/mm3 (4.4-11.0)
[2021-01-21 17:53] LABS: Vitamin D,25 Hydroxy 39.6 ng/mL
[2021-01-21 17:56] LABS: BUN 27 mg/dL (7-18); EST Glomerular Filtration Rate 78 mL/min (>60); Glucose 100 mg/dL (74-106)
[2021-01-21 17:57] LABS: ALB/GLOB Ratio 0.7 RATIO (0.9-2.4); AST(SGOT) 17 U/L (15-37); Alanine Aminotransfer ALT/SGPT 30 U/L (16-61); Albumin, Serum 3.3 g/dL (3.2-5.0); Alkaline Phosphatase 113 U/L (45-117); Anion Gap 4 (5-15); Calcium,Total 9.4 mg/dL (8.5-10.1); Chloride 107 mmol/L (98-107); Est Glom Filt Rate - Afr Amer 94 mL/min (>60); Globulin 4.6 g/dL (2.2-4.2); Protein, Total 7.9 g/dL (6.4-8.2); Sodium Level 140 mmol/L (136-145); Thyroid Stim Hormone (TSH) 1.71 uIU/mL (0.358-3.74); Uric Acid 6.3 mg/dL (3.5-7.2)
== END ==
PROVIDERS: PCP Family Medicine Geriatric Medicine; Visit Provider Family Medicine Geriatric Medicine
DX: I10 Essential (primary) hypertension (principal); E55.9 Vitamin D deficiency, unspecified; M10.9 Gout, unspecified
CPT/HCPCS: 36415; 80053; 82306; 84443; 84550; 85025

== ENCOUNTER → 2021-01-22 09:56 | Outpatient (CLI) | payer MEDICARE, MEDICAID, SELFPAY ==
[2020-10-02 10:05] VITALS: BMI 25.4
[2021-01-22] MEDS: Benralizumab 30 MG/ML Syringe SC (10:00)
[2021-01-22 10:03] VITALS: BP 137/51; PULSE 76; RESP 18; TEMP 36; O2SAT 96; BMI 25.4
== END ==
PROVIDERS: PCP Family Medicine Geriatric Medicine; Referring Provider Internal Medicine Critical Care Medicine; Visit Provider Internal Medicine Critical Care Medicine
DX: J45.50 Severe persistent asthma, uncomplicated (principal)
CPT/HCPCS: 96372; J0517

== ENCOUNTER → 2021-02-08 06:46 | Outpatient (CLI) | payer MEDICARE, MEDICAID, SELFPAY ==
[2020-09-17 10:05] VITALS: BMI 27.0
--- NOTE | 2021-02-08 08:49 | NEURO ---
NCS and/or EMG Patient Report Ordering Doctor: Parmjit Osorio DATE OF SERVICE: 02/08/21 Indication: Fluctuating numbness, tingling, burning in both feet. Reports a diagnosis of peripheral neuropathy. History of significant low back pain secondary to osteoarthritis and scoliosis. Evaluate for lumbar radiculopathy and/or peripheral neuropathy. Findings: Nerve conduction studies were performed in the right and left lower extremity. The right peroneal motor study recording the extensor digitorum brevis showed a reduced amplitude, normal distal latency and normal conduction velocity. No conduction block or focal slowing was present across the fibular neck. The right tibial motor study recording the abductor hallucis brevis showed a reduced amplitude, normal distal latency and normal conduction velocity. Right sural sensory response showed a normal amplitude and conduction velocity. Right superficial peroneal sensory response showed a normal amplitude and conduction velocity. The left peroneal motor study recording the extensor digitorum brevis showed a reduced amplitude, normal distal latency and normal conduction velocity. No conduction block or focal slowing was present across the fibular neck. The left tibial motor study recording the abductor hallucis brevis showed a reduced amplitude, normal distal latency and normal conduction velocity. Left sural sensory response showed a normal amplitude and conduction velocity. Left superficial peroneal sensory response showed a normal amplitude and conduction velocity. Needle EMG of the right lower extremity and lumbar paraspinal muscles was performed. Active denervation was present in the tibialis anterior, medial gastrocnemius and extensor hallucis longus muscles. Insertional activity in the paraspinal muscles was diminished. Motor units were large, long duration with reduced recruitment in the tensor facia matthieu, tibialis anterior, medial gastrocnemius and extensor hallucis longus. In the vastus medialis motor unit morphology, activation and recruitment patterns was normal. Needle EMG of the left lower extremity and lumbar paraspinal muscles was performed. Active denervation was present in the tibialis anterior and medial gastrocnemius muscles. There was no quiet recording field in the lumbar paraspinals. Motor units were large, long duration with reduced recruitment in the tensor facia matthieu and tibialis anterior. Motor units were borderline large with normal recruitment in the medial gastrocnemius. In the vastus medialis motor unit morphology, activation and recruitment patterns was normal. Impression: This is an abnormal study. There is electrophysiologic evidence of bilateral, active and chronic, L5/S1 radiculopathies. There is no evidence of a superimposed, large fiber, peripheral polyneuropathy. Please note: routine nerve conduction studies and needle EMG assess the larger, myelinated motor and sensory fibers. Thus, routine electrodiagnostic studies may be insensitive in detecting a peripheral neuropathy restricted to small fibers alone (i.e., pain, temperature and autonomic fibers). However, most peripheral neuropathies with predominantly small fiber large dysfunction will also involve large fibers to a lesser extent, and will demonstrate abnormalities on electrodiagnostic studies. Thus, clinical correlation is required in the interpretation of this negative electrodiagnostic study if an isolated small fiber neuropathy is considered. Shan Rivas D.O. Multi Select Codes Neurology Neurology Interp Codes: 53006-78 Musc test done w/n test comp (interp) (Qty: 2) and 43503-75 Nrv cndj test 7-8 studies (interp)
== END ==
PROVIDERS: PCP Family Medicine Geriatric Medicine; Referring Provider Psychiatry & Neurology Neurology; Visit Provider Psychiatry & Neurology Neurology
DX: M54.16 Radiculopathy, lumbar region (principal); G62.9 Polyneuropathy, unspecified
CPT/HCPCS: 95886; 95910

== ENCOUNTER → 2021-02-16 13:51 | Outpatient (CLI) | payer MEDICARE, MEDICAID, SELFPAY ==
--- NOTE | 2021-02-16 13:55 | CDU_ITS ---
Reason For Study: carotid artery disease Rt. Velocities/BP Lt. Velocities/BP Prox CCA 117.8/18.6 cm/sec. Prox CCA 97.8/25.4 cm/sec. Mid CCA 119.21.3 cm/sec. Mid CCA 94.1/20.4 cm/sec. Dist CCA 124.3/23.9 cm/sec. Dist CCA 434.9/82.0 cm/sec. Prox ICA 46.6/12.6 cm/sec. Prox ICA 448.8/58.7 cm/sec. Mid ICA 94.1/20.4 cm/sec. Mid ICA 120.8/27.6 cm/sec. Dist ICA 75.7/18.0 cm/sec. Dist ICA 118.2/27.6 cm/sec. Rt. ICA/CCA = .8. Lt. ICA/CCA = 4.8. Prox ECA 167.4/7.2 cm/sec. Prox ECA 265.4/22.2 cm/sec. Rt. Vert. 29.0/4.4 cm/sec. Lt. Vert. 107.9/27.6 cm/sec. Bulb 336.0/65.3 cm/s. Right Extracranial There is heterogeneous, irregular atherosclerotic plaque noted in the right common carotid artery. There is heterogeneous, irregular atherosclerotic plaque noted in the right internal carotid artery. There is heterogeneous, irregular atherosclerotic plaque noted in the right external carotid artery. Antegrade flow is noted in the right vertebral artery. Left Extracranial There is heterogeneous, irregular atherosclerotic plaque noted in the left common carotid artery. There is heterogeneous, irregular atherosclerotic plaque noted in the left internal carotid artery. There is heterogeneous, irregular atherosclerotic plaque noted in the left external carotid artery. Antegrade flow is noted in the left vertebral artery. Procedure Carotid Duplex [id number]. This is a Carotid Duplex examination using B-mode, color flow and specral Doppler. The exam was diagnostic. Exam performed in department. Prelim called to [facility]. VL/Carotid Duplex Ultrasound Interpretation Summary Irregular calcific plaque throughout the right common carotid and proximal inte rnal and external carotid arteries Less than 50% stenosis right internal carotid artery Less than 50% stenosis right external carotid artery Irregular calcific plaque throughout the left common carotid artery and proxima l internal and external carotid arteries Greater than 70% stenosis left proximal internal carotid artery with elevated v elocities within the distal left common carotid artery as well. Greater than 50% stenosis left external carotid artery Patent antegrade vertebrals bilaterally Elevated velocities within the left carotid bulb identified Ordering Physician: Ronnie Martines Performed By: Mayo Barrientos RVT
== END ==
PROVIDERS: PCP Family Medicine Geriatric Medicine; Referring Provider Nurse Practitioner Family; Visit Provider Nurse Practitioner Family
DX: I65.22 Occlusion and stenosis of left carotid artery (principal)
CPT/HCPCS: 93880

== ENCOUNTER 2021-02-18 18:53 | Inpatient (IN) | payer MEDICARE, MEDICAID, SELFPAY ==
[2021-02-18] VITALS (8 sets, daily range): BP systolic 100–149; BP diastolic 53–92; PULSE 52–212; RESP 12–18; TEMP 36.7; O2SAT 95–99; BMI 29.4
--- NOTE | 2021-02-18 19:04 | EKG12_ITS ---
Test Reason : TACHY Blood Pressure : / mmHG Vent. Rate : 118 BPM Atrial Rate : 107 BPM P-R Int : 000 ms QRS Dur : 100 ms QT Int : 332 ms P-R-T Axes : 000 -53 082 degrees QTc Int : 465 ms Atrial fibrillation Left axis deviation Anterior infarct , age undetermined Abnormal ECG Confirmed by ROB VENEGAS, KHANG ([id number]), science editor MORGAN JOSEPH ([id number]) on 02/23/2021 6:48:55 AM Referred By: ABIGAIL Confirmed By:KHANG RIVAS MD
[2021-02-18 19:11] LABS: Absolute Lymphocyte Count 2.33 X10^3/uL (0.83-4.51); Absolute Neutrophil Count 5.4 X10^3/uL (2.0-7.7); Basophil# 0.02 X10^3/uL; Basophil% 0.2 % (0-1); Hematocrit 41.2 % (40-54); Hemoglobin 13.3 g/dL (13.0-16.5); Lymphocyte # 2.33 X10^3/ul (0.83-4.51); Lymphocyte % 27.3 % (19-41); Mean Corp Hgb Conc 32.3 g/dL (32-36); Mean Corpuscular Hgb 29.2 pg (27.0-32.0); Mean Corpuscular Volume 90.5 fL (80-94); Mean Platelet Vol. 10.4 fl (6.2-12.0); Monocyte# 0.79 X10^3/uL; Monocyte% 9.2 % (0-10); NRBC Flagged by Analyzer 0 % (0-5); Neutrophil # 5.38 X10^3/uL (2.7-7.7); Neutrophil % 62.9 % (47-70); Platelet Count 301 K/mm3 (150-450); RBC Distribution Width CV 14.2 % (11.6-14.6); RBC Distribution Width SD 47.2 fl (35.1-43.9); Red Blood Count 4.55 M/mm3 (4.6-6.2); White Blood Count 8.6 K/mm3 (4.4-11.0)
--- NOTE | 2021-02-18 19:18 | RAD_ITS ---
STUDY: X-RAY CHEST REASON FOR EXAM: Male, 70 years old. chest pain TECHNIQUE: Single AP portable view of the chest. COMPARISON: January 15, 2021 FINDINGS: Reidentification of mild and chronic bibasilar interstitial fibrotic changes of the lungs. No new opacity is seen. There is no demonstrated pleural abnormality. Sternal cerclage wires and vascular clips are present from a prior sternotomy and coronary artery bypass graft procedure (CABG). Normal heart size. Stable mediastinal structures. Stable osseous structures. Left chest transcutaneous pacing pads are present. There is no demonstrated abnormality of the visualized soft tissue structures of the upper abdomen. RAD/Chest 1 View (Portable) IMPRESSION: Degenerative changes, as described above. No demonstrated acute cardiopulmonary process. Electronically Signed: William Jean MD at 19:42 EDT , Service support ,
[2021-02-18 19:33] LABS: Anion Gap 6 (5-15); BUN 19 mg/dL (7-18); Calcium,Total 9.8 mg/dL (8.5-10.1); Chloride 105 mmol/L (98-107); Creatinine, Serum 1.19 mg/dL (0.70-1.30); EST Glomerular Filtration Rate 64 mL/min (>60); Est Glom Filt Rate - Afr Amer 77 mL/min (>60); Estimated Creatinine Clearance 41.51 ml/min; Glucose 146 mg/dL (74-106); Magnesium 2.2 mg/dL (1.6-2.6); Potassium 4.2 mmol/L (3.5-5.1); Sodium Level 139 mmol/L (136-145); Troponin-I HS 12 pg/mL (3.0-78.0)
--- NOTE | 2021-02-18 20:24 | EKG12_ITS ---
Test Reason : AFIB Blood Pressure : / mmHG Vent. Rate : 166 BPM Atrial Rate : 187 BPM P-R Int : 000 ms QRS Dur : 100 ms QT Int : 296 ms P-R-T Axes : 000 -62 091 degrees QTc Int : 491 ms Atrial fibrillation Left axis deviation Anterior infarct , age undetermined Abnormal ECG Confirmed by ROB VENEGAS, KHANG ([id number]), purchasing expeditor MORGAN JOSEPH ([id number]) on 02/23/2021 6:53:14 AM Referred By: ABIGAIL Confirmed By:KHANG RIVAS MD
--- NOTE | 2021-02-18 20:27 | ED.RN ---
dr. rizzo informed pt's heart rate i continuing to climb into the 150's to 170's, repeat ecg ordered.
[2021-02-18] MEDS: dilTIAZem 25 MG/5 ML Vial 20 MG IV BOLUS (20:32)
[2021-02-18 22:31] LABS: Troponin-I HS 16 pg/mL (3.0-78.0)
--- NOTE | 2021-02-18 23:22 | EDS_ITS ---
HPI History of Present Illness Chief Complaint: Palpitations Narrative Narrative: 70-year-old male presenting with chest discomfort on the left as well as a rapid heart rate which has been going on for about 45 minutes prior to arrival. He states he had a similar experience of this about a month ago he was hospitalized on amiodarone drip. He was eventually discharged after a stress test and has been on metoprolol 25 mg p.o. twice daily. Patient states this is the first complications had since then. He does not feel short of breath. He is not had a fever or cough. [facility] Medical History Asthma-COPD overlap syndrome Atherosclerosis of coronary artery of [place] heart without angina pectoris Benign prostatic hypertrophy Cardiac dysrhythmia Chronic respiratory failure COPD (chronic obstructive pulmonary disease) CVA (cerebral vascular accident) (05/29/18) DDD (degenerative disc disease) Essential (primary) hypertension Hyperlipidemia Ischemic cardiomyopathy Left carotid artery stenosis Myoclonic jerking Nicotine dependence Nocturnal hypoxemia Osteoarthritis Paroxysmal atrial fibrillation (2008) Peripheral vascular occlusive disease Smoking greater than 40 pack years Stage 3 chronic kidney disease Home Medications loratadine 10 mg PO DAILY 06/12/19 [History Last Taken 01/15/21] aspirin 81 mg tablet,delayed release 81 mg PO DAILY 06/19/19 [History Last Taken 01/14/21] allopurinol 100 mg PO DAILY 07/17/20 [History Last Taken 01/15/21] ncvvshha-xhb-ES-lycopen-lutein 1 tab PO DAILY 07/17/20 [History Last Taken 07/17/20] atorvastatin 80 mg tablet 80 mg PO DAILY tab 09/17/20 [History Last Taken 01/14/21] baclofen 10 mg tablet 10 mg PO TID PRN tab 09/17/20 [History Last Taken 08:00] bupropion HCl (smoking deter) 150 mg tablet,12 hr sustained-release(smoking deterrent) 150 mg PO BID tab 09/17/20 [History Last Taken 01/15/21] guaifenesin 400 mg tablet 400 mg PO BID tab 09/17/20 [History Last Taken 01/15/21] icosapent ethyl 1 gram capsule 2 g PO BID cap 09/17/20 [History Last Taken 01/15/21] pregabalin 75 mg capsule 75 mg PO TID PRN cap 09/17/20 [History Last Taken 01/15/21 08:00] spironolactone 25 mg tablet 25 mg PO DAILY tab 09/17/20 [History Last Taken 01/15/21] tramadol 50 mg tablet 50 mg PO .5XD PRN tab 09/17/20 [History Last Taken Unknown] albuterol sulfate 90 mcg/actuation aerosol inhaler 2 puff INHALATION Q4H PRN #8.5 g 12/22/20 [Rx Last Taken 01/15/21] fluticasone fur. 200 mcg-umeclid 62.5 mcg-vilant 25 mcg inhalat.powder 1 inh INHALATION DAILY #60 ea 12/22/20 [Rx Last Taken 01/15/21] apixaban [Eliquis] 5 mg PO BID #60 tab 01/18/21 [Rx Last Taken Unknown] metoprolol tartrate 25 mg PO BID #60 tab 01/18/21 [Rx Last Taken Unknown] omeprazole 20 mg PO DAILY #30 cap 01/18/21 [Rx Last Taken Unknown] furosemide 40 mg tablet 40 mg PO DAILY #10 tab 02/08/21 [Rx Last Taken Unknown] Allergy/AdvReac Type Severity Reaction Status Date / Time No Known Allergies Allergy Verified 02/18/21 18:54 Family History Father Colon cancer Surgical History H/O coronary artery bypass surgery (01/17/14) History of carpal tunnel release History of left heart catheterization (07/05/12) History of radiofrequency ablation procedure for cardiac arrhythmia (01/17/14) Social History Smoking Status: Former smoker quit date: 05/22/20 Tobacco: How many years used: 52 Electronic Cigarette Use: not used second hand exposure: Yes alcohol intake: never substance use type: does not use ROS ROS ED Constitutional Constitutional ED: Denies chills or fever(s) Eyes Eyes: Denies blurry vision or change in vision ENT ENT ED: Denies rhinorrhea or sore throat Cardiovascular Cardiovascular: Reports chest pain, palpitations and racing heartbeat Respiratory/Chest Respiratory/Chest: Denies cough or dyspnea Gastrointestinal Gastrointestinal: Denies abdominal pain, nausea or vomiting Genitourinary Genitourinary ED: Denies dysuria Musculoskeletal Musculoskeletal: Denies arthralgias or myalgias Integumentary Denies rash Neurologic Neurologic: Denies headache(s) or weakness EXAM Physical Exam Const Vital Signs: 02/18/21 18:55 02/18/21 19:00 02/18/21 19:14 Temperature 98.0 F 98.0 F 98.0 F Temperature Source Axillary Axillary Axillary Pulse Rate 212 H 212 H 128 H Respiratory Rate 17 17 16 Respiratory Pattern Normal Blood Pressure 100/80 100/80 141/92 H Blood Pressure Mean 86 86 108 Pulse Ox 96 96 98 Oxygen Delivery Method Nasal Cannula Nasal Cannula Oxygen Flow Rate (L/min) 2 2 02/18/21 20:04 02/18/21 21:02 02/18/21 22:23 Temperature Temperature Source Pulse Rate 164 H 52 L 63 Respiratory Rate 16 12 18 Respiratory Pattern Blood Pressure 147/58 H 120/53 L 142/64 H Blood Pressure Mean 87 75 90 Pulse Ox 98 95 99 Oxygen Delivery Method Room Air Nasal Cannula Room Air Oxygen Flow Rate (L/min) 2 2 02/18/21 22:59 02/18/21 23:00 Temperature Temperature Source Pulse Rate 61 62 Respiratory Rate 18 Respiratory Pattern Blood Pressure 145/64 H 149/65 H Blood Pressure Mean 91 93 Pulse Ox 99 Oxygen Delivery Method Nasal Cannula Oxygen Flow Rate (L/min) 2 Positive well nourished General Appearance ED: other Tachycardic at greater than 200 bpm holding left- sided chest pain ; Negative for pallor HEENT Reports moist mucous membranes normocephalic and atraumatic Eyes PERRL and EOMs intact bilaterally Resp normal respiratory effort and clear to auscultation bilaterally Cardio Rate: tachycardic GI normal to inspection, nondistended, normoactive bowel sounds Extremity normal to inspection Neuro oriented x3 Sensorium / Orientation: awake and alert Psych mental status grossly normal Skin General Skin Exam: Negative for jaundice or pallor MDM MDM MDM Narrative Medical decision making narrative: Patient presenting with tachycardia and left- sided chest pain. Patient states this started about 45 minutes prior to arrival. He had a similar episode in the past. Initially when I evaluated him he appeared to have a wide-complex tachycardia on the monitor. He was treated as V. tach and since he was stable and alert and talking I gave him amiodarone 150 mg which did slow his heart rate down I did not get an EKG prior to the initial treatment. Afterwards the patient went into A. fib and 180s were mid beats per minute on my interpretation of his second EKG and then slowly gisela to about 160 bpm. At this point he was given Cardizem and his heart rate did resolve into a sinus bradycardia at 50 bpm on my interpretation of his third EKG. Currently his heart rate is in the 70s and appears sinus. His prehospital EKG appears to be more consistent with an SVT on my interpretation. Chest x-ray on my interpretation shows no acute cardiopulmonary process and the radiologist does agree. CBC and BMP are unremarkable. Patient has had 2 - troponins in the ED. Discussed with Dr. Don and he felt that the patient should likely stay overnight for monitoring and he could see him in the morning and adjust any medications any needed. Patient was amenable to this. Patient discussed with hospitalist admitted in stable condition. Impression: 1. Dysrhythmia 2. Paroxysmal A. fib 3. Sinus bradycardia 4. Chest pain Lab Data Attestation: I reviewed the patient's lab results. Labs: Laboratory Results - last 24 hr 02/18/21 02/18/21 02/18/21 19:04 19:04 21:32 WBC 8.6 RBC 4.55 L Hgb 13.3 Hct 41.2 MCV 90.5 MCH 29.2 MCHC 32.3 RDW Std Deviation 47.2 H RDW Coeff of Sujata 14.2 Plt Count 301 MPV 10.4 Immature Gran % (Auto) 0.400 Neut % (Auto) 62.9 Lymph % (Auto) 27.3 [place] % (Auto) 9.2 Eos % (Auto) 0.0 Baso % (Auto) 0.2 Absolute Neuts (auto) 5.4 Absolute Lymphs (auto) 2.33 Nucleated RBC % 0 Sodium 139 Potassium 4.2 Chloride 105 Carbon Dioxide 28.0 Anion Gap 6 BUN 19 H Creatinine 1.19 Estim Creat Clear Calc 41.51 Est GFR (MDRD) Af Amer 77 Est GFR (MDRD) Non-Af 64 BUN/Creatinine Ratio 16.0 Glucose 146 H Calcium 9.8 Magnesium 2.2 Troponin I High Sens 12 16 Radiography Diagnostic Testing: Clinical Impression(s) from Imaging Studies Chest X-Ray 02/18/21 19:18 IMPRESSION: Degenerative changes, as described above. No demonstrated acute cardiopulmonary process. Electronically Signed: William Jean MD at 19:42 EDT , Service support , Discharge Plan Triage Chief Complaint: Palpitations ED Provider: Noel Sibley Dx/Rx/DC Orders Prescriptions: No Action aspirin 81 mg tablet,delayed release (DR/EC) 81 mg PO DAILY RF: 0 spironolactone 25 mg tablet 25 mg PO DAILY RF: 0 Trelegy Ellipta 200-62.5-25 mcg blister with device 1 inh inhalation DAILY Qty: 60 RF: 6 albuterol sulfate 90 mcg/actuation HFA aerosol inhaler 2 puff inhalation Q4H PRN (Reason: shortness of breath or wheezing) Qty: 8.5 RF: 6 pregabalin 75 mg capsule 75 mg PO TID PRN (Reason: Pain) RF: 0 atorvastatin 80 mg tablet 80 mg PO DAILY RF: 0 icosapent ethyl 1 gram capsule 2 g PO BID RF: 0 guaifenesin 400 mg tablet 400 mg PO BID RF: 0 furosemide [Lasix] 40 mg tablet 40 mg PO DAILY Qty: 10 RF: 0 baclofen 10 mg tablet 10 mg PO TID PRN (Reason: Pain) RF: 0 tramadol 50 mg tablet 50 mg PO .5XD PRN (Reason: Pain) RF: 0 loratadine 10 MG tablet 10 mg PO DAILY RF: 0 allopurinol 100 MG tablet 100 mg PO DAILY RF: 0 beuskhvp-pid-GG-lycopen-lutein 1 EACH tablet 1 tab PO DAILY RF: 0 bupropion HCl (smoking deter) 150 mg tablet extended release 12 hr 150 mg PO BID RF: 0 metoprolol tartrate 25 mg Tablet 25 mg PO BID Qty: 60 RF: 0 Eliquis 5 mg tablet 5 mg PO BID Qty: 60 RF: 0 omeprazole 20 mg capsule,delayed release(DR/EC) 20 mg PO DAILY Qty: 30 RF: 0 Primary Care Provider: Jb Melendez Chi
[2021-02-19] VITALS (22 sets, daily range): BP systolic 107–147; BP diastolic 57–89; PULSE 61–95; RESP 16–20; TEMP 36.4–37.1; O2SAT 89–98; BMI 28.0
--- NOTE | 2021-02-19 00:43 | PCM.HP.STD ---
HPI - General General Date of Admission: 02/18/21 Date of Service: 02/19/21 Chief Complaint: Hollow feeling in chest HPI Narrative KAMILLA DICKSON, is a 70 M with a significant history of heart failure with reduced ejection fraction; and COPD who presents to the emergency department with hollow feeling in his chest. His pause on his home pulse ox was 2006. Associated with symptoms is shortness of breath. His symptoms are about 45minutes to the emergency department. Prehospital EKG showed SVT. At the emergency department patient telemetry showed a possible V. tach. Initially patient was given amiodarone at the emergency department. He then went into A. fib. Patient was given Cardizem. His rate decreased to the 50s and 60s. Emergency plan doctor discussed the case with cardiology who recommend the patient be observed at the hospital. About 4 weeks ago patient presented to hospital with same presentation. COUNTS INCLUDE 234 BEDS AT THE [facility] Medical History Asthma-COPD overlap syndrome Atherosclerosis of coronary artery of [place] heart without angina pectoris Benign prostatic hypertrophy Cardiac dysrhythmia Chronic respiratory failure COPD (chronic obstructive pulmonary disease) CVA (cerebral vascular accident) (05/29/18) DDD (degenerative disc disease) Essential (primary) hypertension Hyperlipidemia Ischemic cardiomyopathy Left carotid artery stenosis Myoclonic jerking Nicotine dependence Nocturnal hypoxemia Osteoarthritis Paroxysmal atrial fibrillation (2008) Peripheral vascular occlusive disease Smoking greater than 40 pack years Stage 3 chronic kidney disease Home Medications loratadine 10 mg PO DAILY 06/12/19 [History Last Taken 01/15/21] aspirin 81 mg tablet,delayed release 81 mg PO DAILY 06/19/19 [History Last Taken 01/14/21] allopurinol 100 mg PO DAILY 07/17/20 [History Last Taken 01/15/21] ulrgwkkb-cdc-SV-lycopen-lutein 1 tab PO DAILY 07/17/20 [History Last Taken 07/17/20] atorvastatin 80 mg tablet 80 mg PO DAILY tab 09/17/20 [History Last Taken 01/14/21] baclofen 10 mg tablet 10 mg PO TID PRN tab 09/17/20 [History Last Taken 01/15/21 08:00] bupropion HCl (smoking deter) 150 mg tablet,12 hr sustained-release(smoking deterrent) 150 mg PO BID tab 09/17/20 [History Last Taken 01/15/21] guaifenesin 400 mg tablet 400 mg PO BID tab 09/17/20 [History Last Taken 01/15/21] icosapent ethyl 1 gram capsule 2 g PO BID cap 09/17/20 [History Last Taken 01/15/21] pregabalin 75 mg capsule 75 mg PO TID PRN cap 09/17/20 [History Last Taken 01/15/21 08:00] spironolactone 25 mg tablet 25 mg PO DAILY tab 09/17/20 [History Last Taken 01/15/21] tramadol 50 mg tablet 50 mg PO .5XD PRN tab 09/17/20 [History Last Taken Unknown] albuterol sulfate 90 mcg/actuation aerosol inhaler 2 puff INHALATION Q4H PRN #8.5 g 12/22/20 [Rx Last Taken 01/15/21] fluticasone fur. 200 mcg-umeclid 62.5 mcg-vilant 25 mcg inhalat.powder 1 inh INHALATION DAILY #60 ea 12/22/20 [Rx Last Taken 01/15/21] apixaban [Eliquis] 5 mg PO BID #60 tab 01/18/21 [Rx Last Taken Unknown] metoprolol tartrate 25 mg PO BID #60 tab 01/18/21 [Rx Last Taken Unknown] omeprazole 20 mg PO DAILY #30 cap 01/18/21 [Rx Last Taken Unknown] furosemide 40 mg tablet 40 mg PO DAILY #10 tab 02/08/21 [Rx Last Taken Unknown] Allergy/AdvReac Type Severity Reaction Status Date / Time No Known Allergies Allergy Verified 02/18/21 18:54 Family History Father Colon cancer Surgical History H/O coronary artery bypass surgery (01/17/14) History of carpal tunnel release History of left heart catheterization (07/05/12) History of radiofrequency ablation procedure for cardiac arrhythmia (01/17/14) Social History household members: other housing: apartment current occupational status: employed pets and animals: No Smoking Status: Former smoker quit date: 05/22/20 Tobacco: How many years used: 52 Electronic Cigarette Use: not used second hand exposure: Yes alcohol intake: never substance use type: does not use ROS ROS Narrative Constitutional: Denies fever, chills, fatigue, anorexia and change in weight Eyes: Denies blurry vision, change in eye color, change in vision, discharge from eye(s), double vision, erythema, eye pain, loss of vision or other HEENT: Denies abnormal hearing, dysphagia, ear pain, epistaxis, headache(s), hearing loss, nasal congestion, nasal discharge, post nasal drip, sinus pressure, sore throat or other Cardiovascular: Denies chest pain or palpitations. Respiratory/Chest: Reports shortness of breath. Reports productive cough with clear sputum (chronic). Gastrointestinal: Denies abdominal pain, coffee ground emesis, constipation, diarrhea, dyspepsia, hematemesis, hematochezia, loose stools, melena, nausea, vomiting or other Genitourinary: Denies burning urination, difficulty urinating, dysuria, hematuria, nocturia, urinary frequency, urinary hesitancy, urinary incontinence, urinary urgency or other Musculoskeletal: Denies arthralgias, back pain, joint pain, joint stiffness, joint swelling, myalgias, neck pain or other Neurologic: Denies abnormal gait, abnormal speech, confusion, disequilibrium, dizziness, focal weakness, headache(s), numbness, paresthesias, seizure-like activity, seizures, syncope, tingling, tremor(s) or other Psychiatric: Denies anxiety, depression, homicidal ideation, suicidal ideation or other Endocrinology: Denies change in body appearance, cold intolerance, excessive sweating, heat intolerance, polydipsia, polyuria or other Hematologic/Lymphatic: Denies anemia, easy bleeding, easy bruising, lymphadenopathy or other Integumentary: Denies rashes Allergic/Immunologic: Denies rhinitis, hives, eczema, asthma or other Vital Signs Vital Signs Vital Signs: 02/18/21 18:55 02/18/21 19:00 02/18/21 19:14 Temperature 98.0 F 98.0 F 98.0 F Temperature Source Axillary Axillary Axillary Pulse Rate 212 H 212 H 128 H Respiratory Rate 17 17 16 Respiratory Pattern Normal Blood Pressure 100/80 100/80 141/92 H Blood Pressure Mean 86 86 108 Pulse Ox 96 96 98 Oxygen Delivery Method Nasal Cannula Nasal Cannula Oxygen Flow Rate (L/min) 2 2 02/18/21 20:04 02/18/21 21:02 02/18/21 22:23 Temperature Temperature Source Pulse Rate 164 H 52 L 63 Respiratory Rate 16 12 18 Respiratory Pattern Blood Pressure 147/58 H 120/53 L 142/64 H Blood Pressure Mean 87 75 90 Pulse Ox 98 95 99 Oxygen Delivery Method Room Air Nasal Cannula Room Air Oxygen Flow Rate (L/min) 2 2 02/18/21 22:59 02/18/21 23:00 Temperature Temperature Source Pulse Rate 61 62 Respiratory Rate 18 Respiratory Pattern Blood Pressure 145/64 H 149/65 H Blood Pressure Mean 91 93 Pulse Ox 99 Oxygen Delivery Method Nasal Cannula Oxygen Flow Rate (L/min) 2 Weight Weight: 70.7 kg Body Mass Index (BMI) 29.4 Physical Exam Narrative Physical exam: General: Well-nourished, well-developed. Head: Normocephalic, atraumatic, no tenderness Eyes: PERRLA, EOMI ENT, no trauma, moist mucous membranes, no rhinorrhea Neck: Nontender, full range of motion, no spinal tenderness, deformities, step-off CVS: Regular rate and rhythm. S1-S2 present. No murmur, gallop or rub. Respiratory : clear to auscultation bilaterally, chest wall nontender, no wheezing Abdomen: Soft, nontender, nondistended, normal bowel sounds, no masses : Deferred Back: Nontender, no CVA tenderness, no midline spinal tenderness, deformities, step-offs Extremities: Nontender full range of motion, no trauma Skin: Normal color, no trauma, abrasions Neuro: Alert, oriented, cranial nerves II through XII grossly intact. Psychiatry: Normal mood. Normal affect. Not depressed. Not anxious. Physical exam: General: Well-nourished, well-developed. Results Lab / Micro Data Result Diagrams: 02/19/21 03:35 02/19/21 03:35 Labs: Laboratory Results - last 24 hr 02/18/21 19:04: WBC 8.6, RBC 4.55 L, Hgb 13.3, Hct 41.2, MCV 90.5, MCH 29.2, MCHC 32.3, RDW Std Deviation 47.2 H, RDW Coeff of Sujata 14.2, Plt Count 301, MPV 10.4, Immature Gran % (Auto) 0.400, Neut % (Auto) 62.9, Lymph % (Auto) 27.3, [place] % (Auto) 9.2, Eos % (Auto) 0.0, Baso % (Auto) 0.2, Absolute Neuts (auto) 5.4, Absolute Lymphs (auto) 2.33, Nucleated RBC % 0 02/18/21 19:04: Sodium 139, Potassium 4.2, Chloride 105, Carbon Dioxide 28.0, Anion Gap 6, BUN 19 H, Creatinine 1.19, Estim Creat Clear Calc 41.51, Est GFR (MDRD) Af Amer 77, Est GFR (MDRD) Non-Af 64, BUN/Creatinine Ratio 16.0, Glucose 146 H, Calcium 9.8, Magnesium 2.2, Troponin I High Sens 12 02/18/21 21:32: Troponin I High Sens 16 Radiology Impression Chest X-Ray 02/18/21 19:18 IMPRESSION: Degenerative changes, as described above. No demonstrated acute cardiopulmonary process. Electronically Signed: William Jean MD at 19:42 EDT , Service support , Assessment & Plan Assessment/Plan (1) Dysrhythmia: QUALIFIERS: Arrhythmia type: other cardiac arrhythmia Qualified Code(s): I49.8 - Other specified cardiac arrhythmias PLAN: Dysrhythmia Chest x-ray was independently interpreted and agree with the latest interpretation. Status post multiple medications at the ED as in HPI. Per molder floor will observe patient on telemetry overnight. Initial troponin was negative. Will trend troponin. CAD status post stents Aspirin, Eliquis and atorvastatin continued. COPD Home inhalers continue Heart failure with reduced ejection fraction Echocardiogram on 01/26/2021 showed ejection fraction of 40% Metoprolol, Lasix and spironolactone continued Nicotine dependence Bupropion continued DVT prophylaxis: Not indicated since patient is on Eliquis, Eliquis continued Charges/Coding Visit Charges OBSV E&M: 39730 Initial observation care L2
--- NOTE | 2021-02-19 01:19 | PCS.PANDOC ---
PANDEMIC DOCUMENTATION INITIATED: Date: 12/21/2020 Time: 190
[2021-02-19 02:34] LABS: Troponin-I HS 32 pg/mL (3.0-78.0)
[2021-02-19 03:43] LABS: Absolute Lymphocyte Count 2.02 X10^3/uL (0.83-4.51); Absolute Neutrophil Count 3.7 X10^3/uL (2.0-7.7); Basophil# 0.01 X10^3/uL; Basophil% 0.2 % (0-1); Hematocrit 38.9 % (40-54); Hemoglobin 12.6 g/dL (13.0-16.5); Lymphocyte # 2.02 X10^3/ul (0.83-4.51); Lymphocyte % 30.6 % (19-41); Mean Corp Hgb Conc 32.4 g/dL (32-36); Mean Corpuscular Hgb 29.4 pg (27.0-32.0); Mean Corpuscular Volume 90.9 fL (80-94); Mean Platelet Vol. 10.2 fl (6.2-12.0); Monocyte# 0.86 X10^3/uL; NRBC Flagged by Analyzer 0 % (0-5); Platelet Count 285 K/mm3 (150-450); RBC Distribution Width CV 14.3 % (11.6-14.6); RBC Distribution Width SD 47.5 fl (35.1-43.9); Red Blood Count 4.28 M/mm3 (4.6-6.2); White Blood Count 6.6 K/mm3 (4.4-11.0)
[2021-02-19 04:08] LABS: Troponin-I HS 31 pg/mL (3.0-78.0)
[2021-02-19 04:14] LABS: Anion Gap 4 (5-15); BUN 14 mg/dL (7-18); BUN/Creat Ratio 15.2 RATIO (10-20); Calcium,Total 9.4 mg/dL (8.5-10.1); Chloride 109 mmol/L (98-107); Creatinine, Serum 0.92 mg/dL (0.70-1.30); EST Glomerular Filtration Rate 86 mL/min (>60); Est Glom Filt Rate - Afr Amer 104 mL/min (>60); Estimated Creatinine Clearance 53.69 ml/min; Glucose 92 mg/dL (74-106); Potassium 3.9 mmol/L (3.5-5.1); Sodium Level 142 mmol/L (136-145)
[2021-02-19] MEDS: Ipratropium/Albuterol Sulfate 3 ML AMPUL.NEB INHALATION ×3 (07:42→19:03)
[2021-02-19] MEDS: Budesonide Respules 0.5 MG/2 ML AMPUL.NEB. INHALATION ×2 (07:42→19:03)
[2021-02-19] MEDS: Metoprolol Tartrate 25 MG Tablet PO (08:42)
[2021-02-19] MEDS: Allopurinol 100 MG Tablet PO (08:42)
[2021-02-19] MEDS: Furosemide 40 MG Tablet PO (08:43)
[2021-02-19] MEDS: Multivitamins,Ther W-Minerals Tablet 1 TABLET PO (08:43)
[2021-02-19] MEDS: APIXABAN 5 MG TABLET PO ×2 (08:43→21:27)
[2021-02-19] MEDS: Aspirin E.C. 81 MG Tablet PO (08:43)
[2021-02-19] MEDS: buPROPion (SR) 150 MG Tablet.SA PO ×2 (08:43→21:27)
[2021-02-19] MEDS: Loratadine 10 MG Tablet PO (08:43)
[2021-02-19] MEDS: guaiFENesin 600 MG Tablet PO ×2 (08:44→21:26)
[2021-02-19] MEDS: Spironolactone 25 MG Tablet PO (08:44)
[2021-02-19] MEDS: Pantoprazole Sodium 20 MG Tablet PO (08:44)
--- NOTE | 2021-02-19 12:31 | CON.PCM.CA_ITS ---
Documented by User: Rea DACOSTA, PA 02/19/21 16:58 Assessment & Plan Assessment/Plan (1) Ventricular tachyarrhythmia: (2) Atherosclerosis of coronary artery of [place] heart without angina pectoris: QUALIFIERS: Coronary Disease-Associated Artery/Lesion type: [place] artery Qualified Code(s): I25.10 - Atherosclerotic heart disease of [place] coronary artery without angina pectoris (3) Essential (primary) hypertension: (4) Hyperlipidemia: QUALIFIERS: Hyperlipidemia type: unspecified Qualified Code(s): E78.5 - Hyperlipidemia, unspecified (5) Paroxysmal atrial fibrillation: PLAN: * Ventricular arrhythmia is concerning. Mitchell tart Pt on loading dose of amiodarone at 200 mg BID for 1 week, then decrease to 200 mg a day * Pt recently had negative stress test, would consider pursuing heart cath for evaluate for ischemia. He will need to hold his eliquis for 3 days prior to proceeding with this. Because of this will plan for heart cath on Monday. Will start on Heparin. Based on these findings may need to consider EP evaluation. * Pt will continue with is current dose of metoprolol, ASA, spirolactone and atorvastatin. HPI Consult Data Date of Consult: 02/19/21 HPI Narrative HPI Narrative: KAMILLA DICKSON, is a 70 M who presented to [facility] ER for palpitations. He was in the hospital a month ago for a similar experience. EMS EKG was concerning for NSVT, pt was symptomatic with this. He was lightheaded, SOB and felt funny. He does not have any chest pain. He has not had any similar symptoms since his hospital stay last month. He has a hx of coronary artery disease status post coronary artery bypass surgery x2 in January 2014. He underwent a left internal mammary artery to the left anterior descending artery and saphenous vein graft to the right coronary artery. He also has a hx of paroxysmal atrial fibrillation status post PVI and left atrial appendage clip, hypertension, CVA and hyperlipidemia. [facility] Medical History (Updated 02/19/21 @ 13:30 by Rea DACOSTA, PA) Asthma-COPD overlap syndrome Atherosclerosis of coronary artery of [place] heart without angina pectoris Benign prostatic hypertrophy Cardiac dysrhythmia Chronic respiratory failure COPD (chronic obstructive pulmonary disease) CVA (cerebral vascular accident) (05/29/18) DDD (degenerative disc disease) Essential (primary) hypertension Hyperlipidemia Ischemic cardiomyopathy Left carotid artery stenosis Myoclonic jerking Nicotine dependence Nocturnal hypoxemia Osteoarthritis Paroxysmal atrial fibrillation (2008) Peripheral vascular occlusive disease Smoking greater than 40 pack years Stage 3 chronic kidney disease Home Medications loratadine 10 mg PO DAILY 06/12/19 [History Last Taken 01/15/21] aspirin 81 mg tablet,delayed release 81 mg PO DAILY 06/19/19 [History Last Taken 01/14/21] allopurinol 100 mg PO DAILY 07/17/20 [History Last Taken 01/15/21] ezjcaoke-wur-MJ-lycopen-lutein 1 tab PO DAILY 07/17/20 [History Last Taken 07/17/20] atorvastatin 80 mg tablet 80 mg PO DAILY tab 09/17/20 [History Last Taken 01/14/21] baclofen 10 mg tablet 10 mg PO TID PRN tab 09/17/20 [History Last Taken 01/15/21 08:00] bupropion HCl (smoking deter) 150 mg tablet,12 hr sustained-release(smoking deterrent) 150 mg PO BID tab 09/17/20 [History Last Taken 01/15/21] guaifenesin 400 mg tablet 400 mg PO BID tab 09/17/20 [History Last Taken 01/15] icosapent ethyl 1 gram capsule 2 g PO BID cap 09/17/20 [History Last Taken 01/15/21] pregabalin 75 mg capsule 75 mg PO TID PRN cap 09/17/20 [History Last Taken 01/15/21 08:00] spironolactone 25 mg tablet 25 mg PO DAILY tab 09/17/20 [History Last Taken 01/15/21] tramadol 50 mg tablet 50 mg PO .5XD PRN tab 09/17/20 [History Last Taken Unknown] albuterol sulfate 90 mcg/actuation aerosol inhaler 2 puff INHALATION Q4H PRN #8.5 g 12/22/20 [Rx Last Taken 01/15/21] fluticasone fur. 200 mcg-umeclid 62.5 mcg-vilant 25 mcg inhalat.powder 1 inh INHALATION DAILY #60 ea 12/22/20 [Rx Last Taken 01/15/21] apixaban [Eliquis] 5 mg PO BID #60 tab 01/18/21 [Rx Last Taken Unknown] metoprolol tartrate 25 mg PO BID #60 tab 01/18/21 [Rx Last Taken Unknown] omeprazole 20 mg PO DAILY #30 cap 01/18/21 [Rx Last Taken Unknown] furosemide 40 mg tablet 40 mg PO DAILY #10 tab 02/08/21 [Rx Last Taken Unknown] Allergy/AdvReac Type Severity Reaction Status Date / Time No Known Allergies Allergy Verified 02/18/21 18:54 Family History Father Colon cancer Surgical History H/O coronary artery bypass surgery (01/17/14) History of carpal tunnel release History of left heart catheterization (07/05/12) History of radiofrequency ablation procedure for cardiac arrhythmia (01/17/14) Social History household members: other housing: apartment current occupational status: employed pets and animals: No Smoking Status: Former smoker quit date: 05/22/20 Tobacco: How many years used: 52 Electronic Cigarette Use: not used second hand exposure: Yes alcohol intake: never substance use type: does not use ROS Constitutional Constitutional: Reports systems reviewed and no addt'l complaints, except as documented Eyes Eyes: Reports systems reviewed and no addt'l complaints, except as documented ENT HEENT: Reports systems reviewed and no addt'l complaints, except as documented Cardiovascular Cardiovascular: Reports systems reviewed and no addt'l complaints, except as documented Respiratory/Chest Respiratory/Chest: Reports systems reviewed and no addt'l complaints, except as documented Gastrointestinal Gastrointestinal: Reports systems reviewed and no addt'l complaints, except as documented Musculoskeletal Musculoskeletal: Reports systems reviewed and no addt'l complaints, except as documented Physical Exam Const alert, oriented x3, no apparent distress, average body habitus, no limitations, healthy appearing and well nourished HEENT normocephalic, head/scalp atraumatic, external ears normal and nasal mucous membranes and turbinates normal Eyes PERRL, EOMs intact bilaterally, conjunctivae normal and no scleral icterus Chest inspection of chest normal Resp normal respiratory effort, normal air movement, no retractions, no use of accessory muscles and clear to auscultation bilaterally Cardio regular rate, regular rhythm, S1 normal heart sound, S2 normal heart sound, no murmurs, no rub, no gallops, no clicks, no JVD and peripheral pulses 2+ througho ut GI normal to inspection, nondistended, normoactive bowel sounds, soft to palpation, non-tender and non-distended Neuro oriented x3, CN's II-XII intact bilaterally, moves all extremities, no focal motor deficits and no sensory deficits noted Charges/Coding Visit Charges Office Visits / Consults: [id number] IP Consult L4 Objective Data Vital Signs: Vital Signs Temp Pulse Resp BP Pulse Ox 98.2 F 76 20 H 107/57 L 92 02/19/21 10:00 02/19/21 12:00 02/19/21 10:39 02/19/21 10:00 02/19/21 10:40 Oxygen Flow Rate (L/min) 2 Oxygen Delivery Method Room Air Weight: 149 lb 11.102 oz Body Mass Index (BMI) 28.0 Intake & Output: Intake and Output for Last 24 Hours 02/17/21 02/18/21 02/19/21 23:59 23:59 23:59 Intake Total 103 / 103 Balance 103 / 103 Lab / Micro Data Result Diagrams: 02/19/21 03:35 02/19/21 03:35 Labs: Laboratory Results - last 24 hr 02/18/21 19:04: WBC 8.6, RBC 4.55 L, Hgb 13.3, Hct 41.2, MCV 90.5, MCH 29.2, MCHC 32.3, RDW Std Deviation 47.2 H, RDW Coeff of Sujata 14.2, Plt Count 301, MPV 10.4, Immature Gran % (Auto) 0.400, Neut % (Auto) 62.9, Lymph % (Auto) 27.3, [place] % (Auto) 9.2, Eos % (Auto) 0.0, Baso % (Auto) 0.2, Absolute Neuts (auto) 5.4, Absolute Lymphs (auto) 2.33, Nucleated RBC % 0 02/18/21 19:04: Sodium 139, Potassium 4.2, Chloride 105, Carbon Dioxide 28.0, Anion Gap 6, BUN 19 H, Creatinine 1.19, Estim Creat Clear Calc 41.51, Est GFR (MDRD) Af Amer 77, Est GFR (MDRD) Non-Af 64, BUN/Creatinine Ratio 16.0, Glucose 146 H, Calcium 9.8, Magnesium 2.2, Troponin I High Sens 12 02/18/21 21:32: Troponin I High Sens 16 02/19/21 02:00: Troponin I High Sens 32 02/19/21 03:35: WBC 6.6, RBC 4.28 L, Hgb 12.6 L, Hct 38.9 L, MCV 90.9, MCH 29.4, MCHC 32.4, RDW Std Deviation 47.5 H, RDW Coeff of [place] 14.3, Plt Count 285, MPV 10.2, Immature Gran % (Auto) 0.200, Neut % (Auto) 56.0, Lymph % (Auto) 30.6, [place] % (Auto) 13.0 H, Eos % (Auto) 0.0, Baso % (Auto) 0.2, Absolute Neuts (auto) 3.7, Absolute Lymphs (auto) 2.02, Nucleated RBC % 0 02/19/21 03:35: Sodium 142, Potassium 3.9, Chloride 109 H, Carbon Dioxide 29.0, Anion Gap 4 L, BUN 14, Creatinine 0.92, Estim Creat Clear Calc 53.69, Est GFR (MDRD) Af Amer 104, Est GFR (MDRD) Non-Af 86, BUN/Creatinine Ratio 15.2, Glucose 92, Calcium 9.4 02/19/21 03:35: Troponin I High Sens 31 Cardiology Labs/Tests 02/18/21 19:04: WBC 8.6, RBC 4.55 L, Hgb 13.3, Hct 41.2, MCV 90.5, MCH 29.2, MCHC 32.3, Plt Count 301, MPV 10.4, Immature Gran % (Auto) 0.400, Neut % (Auto) 62.9, Lymph % (Auto) 27.3, [place] % (Auto) 9.2, Eos % (Auto) 0.0, Baso % (Auto) 0.2, Absolute Neuts (auto) 5.4, Nucleated RBC % 0 02/18/21 19:04: Sodium 139, Potassium 4.2, Chloride 105, Carbon Dioxide 28.0, Anion Gap 6, BUN 19 H, Creatinine 1.19, Est GFR (MDRD) Af Amer 77, Est GFR (MDRD) Non-Af 64, BUN/Creatinine Ratio 16.0, Glucose 146 H, Calcium 9.8, Magnesium 2.2 02/19/21 03:35: WBC 6.6, RBC 4.28 L, Hgb 12.6 L, Hct 38.9 L, MCV 90.9, MCH 29.4, MCHC 32.4, Plt Count 285, MPV 10.2, Immature Gran % (Auto) 0.200, Neut % (Auto) 56.0, Lymph % (Auto) 30.6, [place] % (Auto) 13.0 H, Eos % (Auto) 0.0, Baso % (Auto) 0.2, Absolute Neuts (auto) 3.7, Nucleated RBC % 0 02/19/21 03:35: Sodium 142, Potassium 3.9, Chloride 109 H, Carbon Dioxide 29.0, Anion Gap 4 L, BUN 14, Creatinine 0.92, Est GFR (MDRD) Af Amer 104, Est GFR (MDRD) Non-Af 86, BUN/Creatinine Ratio 15.2, Glucose 92, Calcium 9.4 Rhythm: EKG: Echocardiogram from 01/16/2021: Interpretation Summary Normal LV size. The estimated ejection fraction is 40 %. There is mild global hypokinesis of the left ventricle. Mild (1+) tricuspid valve insufficiency. Pulmonary artery systolic pressure is 36 mmHg. Mild to moderate segmental systolic dysfunction (see wall motion). Stress test from 01/18/2021: Conclusion: Mild cardiomyopathy. No ischemic defects noted. Radiography Diagnostic Testing: Radiology Impression Chest X-Ray 02/18/21 19:18 IMPRESSION: Degenerative changes, as described above. No demonstrated acute cardiopulmonary process. Electronically Signed: William Jean MD at 19:42 EDT , Service support , Documented by User: Dr. Sonia Don MD 02/19/21 17:11 Assessment & Plan Assessment/Plan (1) Atherosclerosis of coronary artery of [place] heart without angina pectoris: QUALIFIERS: Coronary Disease-Associated Artery/Lesion type: [place] artery Qualified Code(s): I25.10 - Atherosclerotic heart disease of [place] coronary artery without angina pectoris (2) Essential (primary) hypertension: (3) Hyperlipidemia: QUALIFIERS: Hyperlipidemia type: unspecified Qualified Code(s): E78.5 - Hyperlipidemia, unspecified (4) Paroxysmal atrial fibrillation: (5) Chronic hypoxemic respiratory failure: (6) Nicotine dependence in remission: (7) Dysrhythmia: QUALIFIERS: Arrhythmia type: other cardiac arrhythmia Qualified Code(s): I49.8 - Other specified cardiac arrhythmias (8) TIA (transient ischemic attack): (9) Ischemic cardiomyopathy: PLAN: I saw this patient today at bedside along with the nursing staff and the midlevel Patient with risk of CAD, CABG with OCAMPO to LAD SVG to RCA, multiple other medical comorbidities. Episodes of paroxysmal atrial fibrillation with widening of the QRS complex. Converted to sinus rhythm on amiodarone I agree with the cardiac care plan as documented by the midlevel with the plan of cardiac catheterization as he had ST depression on the repeat electrocardiogram consistent with myocardial ischemia. From cardiac standpoint he can be discharged home on the medical therapy with elective cardiac catheterization and also I discussed the plan of management for the paroxysmal A. fib with drag out worker Dr.Emile Ryan Patient has tachy-bradycardia syndrome and will be set up for event monitor and consideration of a pacemaker following cardiac catheterization. HPI Consult Data Date of Consult: 02/19/21 [facility] Medical History (Updated 02/19/21 @ 13:30 by Rea DACOSTA, PA) Asthma-COPD overlap syndrome Atherosclerosis of coronary artery of [place] heart without angina pectoris Benign prostatic hypertrophy Cardiac dysrhythmia Chronic respiratory failure COPD (chronic obstructive pulmonary disease) CVA (cerebral vascular accident) (05/29/18) DDD (degenerative disc disease) Essential (primary) hypertension Hyperlipidemia Ischemic cardiomyopathy Left carotid artery stenosis Myoclonic jerking Nicotine dependence Nocturnal hypoxemia Osteoarthritis Paroxysmal atrial fibrillation (2008) Peripheral vascular occlusive disease Smoking greater than 40 pack years Stage 3 chronic kidney disease Home Medications loratadine 10 mg PO DAILY 06/12/19 [History Last Taken 01/15/21] aspirin 81 mg tablet,delayed release 81 mg PO DAILY 06/19/19 [History Last Taken 01/14/21] allopurinol 100 mg PO DAILY 07/17/20 [History Last Taken 01/15/21] itddfylh-xiw-[place]-lycopen-lutein 1 tab PO DAILY 07/17/20 [History Last Taken 07/17/20] atorvastatin 80 mg tablet 80 mg PO DAILY tab 09/17/20 [History Last Taken 01/14/21] baclofen 10 mg tablet 10 mg PO TID PRN tab 09/17/20 [History Last Taken 01/15/21 08:00] bupropion HCl (smoking deter) 150 mg tablet,12 hr sustained-release(smoking deterrent) 150 mg PO BID tab 09/17/20 [History Last Taken 01/15/21] guaifenesin 400 mg tablet 400 mg PO BID tab 09/17/20 [History Last Taken 01/15/21] icosapent ethyl 1 gram capsule 2 g PO BID cap 09/17/20 [History Last Taken 01/15/21] pregabalin 75 mg capsule 75 mg PO TID PRN cap 09/17/20 [History Last Taken 01/15/21 08:00] spironolactone 25 mg tablet 25 mg PO DAILY tab 09/17/20 [History Last Taken 01/15/21] tramadol 50 mg tablet 50 mg PO .5XD PRN tab 09/17/20 [History Last Taken Unknown] albuterol sulfate 90 mcg/actuation aerosol inhaler 2 puff INHALATION Q4H PRN #8 .5 g 12/22/20 [Rx Last Taken 01/15/21] fluticasone fur. 200 mcg-umeclid 62.5 mcg-vilant 25 mcg inhalat.powder 1 inh INHALATION DAILY #60 ea 12/22/20 [Rx Last Taken 01/15/21] apixaban [Eliquis] 5 mg PO BID #60 tab 01/18/21 [Rx Last Taken Unknown] metoprolol tartrate 25 mg PO BID #60 tab 01/18/21 [Rx Last Taken Unknown] omeprazole 20 mg PO DAILY #30 cap 01/18/21 [Rx Last Taken Unknown] furosemide 40 mg tablet 40 mg PO DAILY #10 tab 02/08/21 [Rx Last Taken Unknown] Allergy/AdvReac Type Severity Reaction Status Date / Time No Known Allergies Allergy Verified 02/18/21 18:54 Family History Father Colon cancer Surgical History H/O coronary artery bypass surgery (01/17/14) History of carpal tunnel release History of left heart catheterization (07/05/12) History of radiofrequency ablation procedure for cardiac arrhythmia (01/17/14) Social History household members: other housing: apartment current occupational status: employed pets and animals: No Smoking Status: Former smoker quit date: 05/22/20 Tobacco: How many years used: 52 Electronic Cigarette Use: not used second hand exposure: Yes alcohol intake: never substance use type: does not use Lab / Micro Data Result Diagrams: 02/19/21 03:35 02/19/21 03:35
--- NOTE | 2021-02-19 13:59 | PN.HOSP_ITS ---
Subjective Subjective Patient seen and examined at bedside. He reports no significant palpitations despite several runs of V. tach on telemetry. He denies any shortness of breath or chest pain currently. 10 PT ROS otherwise negative. Objective Data Objective Data Vital Signs: Vital Signs Temp Pulse Resp BP Pulse Ox 98.2 F 76 20 H 107/57 L 92 02/19/21 10:00 02/19/21 12:00 02/19/21 10:39 02/19/21 10:00 02/19/21 10:40 Oxygen Flow Rate (L/min) 2 Oxygen Delivery Method Room Air Weight: 67.9 kg Body Mass Index (BMI) 28.0 Intake & Output: Intake and Output for Last 24 Hours 02/17/21 02/18/21 02/19/21 23:59 23:59 23:59 Intake Total 103 / 103 Balance 103 / 103 Lab / Micro Data Result Diagrams: 02/19/21 03:35 02/19/21 03:35 Labs: Laboratory Results - last 24 hr 02/18/21 19:04: WBC 8.6, RBC 4.55 L, Hgb 13.3, Hct 41.2, MCV 90.5, MCH 29.2, MCHC 32.3, RDW Std Deviation 47.2 H, RDW Coeff of Sujata 14.2, Plt Count 301, MPV 10.4, Immature Gran % (Auto) 0.400, Neut % (Auto) 62.9, Lymph % (Auto) 27.3, [place] % (Auto) 9.2, Eos % (Auto) 0.0, Baso % (Auto) 0.2, Absolute Neuts (auto) 5.4, Absolute Lymphs (auto) 2.33, Nucleated RBC % 0 02/18/21 19:04: Sodium 139, Potassium 4.2, Chloride 105, Carbon Dioxide 28.0, Anion Gap 6, BUN 19 H, Creatinine 1.19, Estim Creat Clear Calc 41.51, Est GFR (MDRD) Af Amer 77, Est GFR (MDRD) Non-Af 64, BUN/Creatinine Ratio 16.0, Glucose 146 H, Calcium 9.8, Magnesium 2.2, Troponin I High Sens 12 02/18/21 21:32: Troponin I High Sens 16 02/19/21 02:00: Troponin I High Sens 32 02/19/21 03:35: WBC 6.6, RBC 4.28 L, Hgb 12.6 L, Hct 38.9 L, MCV 90.9, MCH 29.4, MCHC 32.4, RDW Std Deviation 47.5 H, RDW Coeff of Sujata 14.3, Plt Count 285, MPV 10.2, Immature Gran % (Auto) 0.200, Neut % (Auto) 56.0, Lymph % (Auto) 30.6, [place] % (Auto) 13.0 H, Eos % (Auto) 0.0, Baso % (Auto) 0.2, Absolute Neuts (auto) 3.7, Absolute Lymphs (auto) 2.02, Nucleated RBC % 0 02/19/21 03:35: Sodium 142, Potassium 3.9, Chloride 109 H, Carbon Dioxide 29.0, Anion Gap 4 L, BUN 14, Creatinine 0.92, Estim Creat Clear Calc 53.69, Est GFR (MDRD) Af Amer 104, Est GFR (MDRD) Non-Af 86, BUN/Creatinine Ratio 15.2, Glucose 92, Calcium 9.4 02/19/21 03:35: Troponin I High Sens 31 Radiography Diagnostic Testing: Radiology Impression Chest X-Ray 02/18/21 19:18 IMPRESSION: Degenerative changes, as described above. No demonstrated acute cardiopulmonary process. Electronically Signed: William Jean MD at 19:42 EDT , Service support , Physical Exam Const oriented x3 and no apparent distress General Appearance: cooperative, comfortable, well kempt and well developed Orientation / Consciousness: awake, oriented to person, oriented to place and oriented to time Exam Limitations: no limitations Nutritional Appearance: obese HEENT normocephalic, head/scalp atraumatic, hearing grossly normal bilaterally and oropharynx normal Eyes PERRL and EOMs intact bilaterally Neck General: normal visual inspection and trachea midline Lymph Lymphatic: no lymphadenopathy noted Chest inspection of chest normal and palpation of chest normal Resp normal respiratory effort and normal air movement Auscultation: clear to auscultation bilaterally Cardio regular rate, regular rhythm, S1 normal heart sound, S2 normal heart sound, no murmurs, no rub and no gallops GI normal to inspection, nondistended, normoactive bowel sounds Extremity normal to inspection, normal capillary refill and no pedal edema Peripheral Pulses: Yes pulses 2+ throughout Skin no rashes or lesions noted General Skin Exam: no breakdown Neuro oriented x3, CN's II-XII intact bilaterally and moves all extremities Psych mental status grossly normal Assessment & Plan Assessment/Plan (1) Paroxysmal atrial fibrillation: (2) Ventricular tachyarrhythmia: (3) Dysrhythmia: QUALIFIERS: Arrhythmia type: other cardiac arrhythmia Qualified Code(s): I49.8 - Other specified cardiac arrhythmias (4) Atherosclerosis of coronary artery of [place] heart without angina pectoris: QUALIFIERS: Coronary Disease-Associated Artery/Lesion type: [place] artery Qualified Code(s): I25.10 - Atherosclerotic heart disease of [place] coronary artery without angina pectoris PLAN: 02/19/21: patient with recurrent runs of Vtach on telemetry, cardiology on consult, started patient on amiodarone PO, patient being considered for cardiac catheterization and possible EP evaluation. #Ventricular arrhythmia #Paroxysmal A-fib #Heart failure with reduced ejection fraction #CAD status post stents Status post multiple medications at the ED as in HPI. Per telephone clerk will observe patient on telemetry overnight. Initial troponin was negative. Will trend troponin. Echocardiogram on 01/26/2021 showed ejection fraction of 40% started on amidodarone 200mg BID for 1 week, then PO once daily cardiology considering heart cath continue current metoprolol, ASA, spironolactone, Atorvastatin monitor closely on telemetry #COPD Home inhalers continue #Nicotine dependence Bupropion continued #DVT prophylaxis Not indicated since patient is on Eliquis, Eliquis continued Charges/Coding Visit Charges OBSV E&M: 63522 Subsequent observation care L3
[2021-02-19] MEDS: Amiodarone 200 MG Tablet PO (15:02)
--- NOTE | 2021-02-19 15:39 | CASEMGMT ---
According to the [facility] website, the following are in-network tertiary facilities: [facility], [facility], [facility], [facility], [facility], [facility], [facility], [facility], and . Ethan FLANNERY CM
--- NOTE | 2021-02-19 16:17 | EKG12_ITS ---
Test Reason : RHYTHM CHANGE Blood Pressure : / mmHG Vent. Rate : 050 BPM Atrial Rate : 050 BPM P-R Int : 110 ms QRS Dur : 102 ms QT Int : 438 ms P-R-T Axes : 070 -08 -02 degrees QTc Int : 399 ms Sinus bradycardia with short AL Low voltage QRS Nonspecific ST abnormality Abnormal ECG Confirmed by ROB VENEGAS, KHANG ([id number]), department editor MORGAN JOSEPH ([id number]) on 02/23/2021 6:49:29 AM Referred By: ABIGAIL Confirmed By:KHANG RIVAS MD
--- NOTE | 2021-02-19 16:26 | EKG12_ITS ---
Test Reason : Blood Pressure : / mmHG Vent. Rate : 079 BPM Atrial Rate : 079 BPM P-R Int : 114 ms QRS Dur : 094 ms QT Int : 356 ms P-R-T Axes : 078 -15 265 degrees QTc Int : 408 ms Normal sinus rhythm Low voltage QRS ST & T wave abnormality, consider inferior ischemia ST & T wave abnormality, consider anterolateral ischemia Abnormal ECG No previous ECGs available Confirmed by ROB VENEGAS, KHANG ([id number]), marketing editor MORGAN JOSEPH ([id number]) on 02/24/2021 9:50:35 AM Referred By: FADI Confirmed By:KHANG RIVAS MD
[2021-02-19 16:43] LABS: International Normalized Ratio 1.2; Prothrombin Time (Protime)PT. 14.9 SECONDS (11.7-14.9)
[2021-02-19 16:44] LABS: Partial Thromboplast Time 35.3 Seconds (24.1-36.2)
[2021-02-19] MEDS: Metoprolol Tartrate 25 MG Tablet 12.2 MG PO (21:26)
[2021-02-19] MEDS: MELATONIN 3 MG TABLET PO (21:26)
[2021-02-19] MEDS: Atorvastatin Calcium 80 MG Tablet PO (21:26)
[2021-02-20 03:00] VITALS: BP 102/63; PULSE 52; PULSE 64; RESP 14; TEMP 36.7; O2SAT 98
[2021-02-20 06:44] LABS: Absolute Lymphocyte Count 1.96 X10^3/uL (0.83-4.51); Absolute Neutrophil Count 4.4 X10^3/uL (2.0-7.7); Basophil# 0.01 X10^3/uL; Basophil% 0.1 % (0-1); Hematocrit 39.4 % (40-54); Hemoglobin 12.8 g/dL (13.0-16.5); Lymphocyte # 1.96 X10^3/ul (0.83-4.51); Lymphocyte % 26.8 % (19-41); Mean Corp Hgb Conc 32.5 g/dL (32-36); Mean Corpuscular Hgb 29.1 pg (27.0-32.0); Mean Corpuscular Volume 89.5 fL (80-94); Mean Platelet Vol. 10.1 fl (6.2-12.0); Monocyte# 0.96 X10^3/uL; Monocyte% 13.1 % (0-10); NRBC Flagged by Analyzer 0 % (0-5); Neutrophil # 4.35 X10^3/uL (2.7-7.7); Neutrophil % 59.5 % (47-70); Platelet Count 284 K/mm3 (150-450); RBC Distribution Width CV 14.2 % (11.6-14.6); White Blood Count 7.3 K/mm3 (4.4-11.0)
[2021-02-20 07:24] LABS: Anion Gap 8 (5-15); BUN 23 mg/dL (7-18); BUN/Creat Ratio 22.1 RATIO (10-20); Calcium,Total 9.4 mg/dL (8.5-10.1); Chloride 105 mmol/L (98-107); Creatinine, Serum 1.04 mg/dL (0.70-1.30); EST Glomerular Filtration Rate 75 mL/min (>60); Est Glom Filt Rate - Afr Amer 90 mL/min (>60); Estimated Creatinine Clearance 47.49 ml/min; Glucose 96 mg/dL (74-106); Sodium Level 140 mmol/L (136-145)
[2021-02-20 07:36] VITALS: PULSE 78; RESP 18; O2SAT 92
[2021-02-20] MEDS: Ipratropium/Albuterol Sulfate 3 ML AMPUL.NEB INHALATION (07:36)
[2021-02-20] MEDS: Budesonide Respules 0.5 MG/2 ML AMPUL.NEB. INHALATION (07:36)
[2021-02-20 07:56] VITALS: PULSE 82
[2021-02-20 08:22] VITALS: BP 136/71; PULSE 86; RESP 18; TEMP 36.8; O2SAT 92
[2021-02-20] MEDS: Multivitamins,Ther W-Minerals Tablet 1 TABLET PO (08:41)
[2021-02-20] MEDS: Aspirin E.C. 81 MG Tablet PO (08:41)
[2021-02-20] MEDS: Allopurinol 100 MG Tablet PO (08:41)
--- NOTE | 2021-02-20 10:00 | CASEMGMT ---
PRUDENCIO KANG Assessment: Face to Face with pt for initial transition planning/care coordination assessment. RN PEARL introduced self and role at [facility], pt voices understanding and consents to assessment. Pt is A/O x4 and answers all questions appropriately at this time. Pt sitting up on edge of bed with O2 on in no distress. Care providers, pharmacy, and demographics verified/updated. Admitting Dx: dysrhythmia PCP:Al Specialists: Francoise, cardio; nancy Christy [facility]erred [facility]acy[facility] Insurance: Selena [facility] Prescription Benefit: yes LW/HPOA: Pt denies having a LW/DPOA and denies need for info regarding AD. Pt states he has outlived his DPOA's and needs to redo the forms. LNOK: Samira Farias, sister Living Arrangements: Pt lives with sister in a ground level apt with no steps to enter. Pt reports being I in ADL's and denies concerns at home. Transportation: Pt drives self and denies concerns with transportation. DME/HHC/SNF: Pt has O2 at 2L cont through [employer] ( he believes this is the name of the company). Pt denies previous HHC and has been at [facility]. 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 He states he takes care of his sister as well. Pt denies needing any HHC for himself. Pt anxious to be dc'd. Pt states no concerns with going home at time of dc. Pt states no further concerns/needs. CM to follow. Advised pt to ask CM if any further question/concerns/needs arise, voices understanding. Pt Goal: Home Plan: Home
[2021-02-20 10:36] VITALS: BP 151/79; PULSE 92; RESP 18; TEMP 36.4; O2SAT 99
--- NOTE | 2021-02-20 10:39 | PCM.DC ---
Discharge Instructions Diet Discharge Diet: Low fat / Low cholesterol Activity Discharge Activity: Return to Normal Activity Dressing / Incision Call your doctor if you observe: Shortness of breath, Dizziness, Chest pain and Increased palpitations (irregular heartbeat) Follow Up Care Please Follow Up With: Rea Curry, PA When: 1 week Test Results: Test results from this visit will be discussed in further detail at your follow-up appointment, if applicable. Discharge Plan Admission Admit Date/Time: 02/19/21 15:04 Primary Reason for Your Visit: Atrial Fibrillation Attending Provider: Petros Barker Primary Care Provider: Jb Melendez Chi Consulting Providers: Melvin Wagner ; Jose E Owusu ; Ced Wiggins ; Sky Ryan ; Elmer Navarro ; Sonia Don ; Damaso Her ; Priti Moore ; Rodney Noe ; Robert Salgado ; Ronnie Martines CURRICULUM DEVELOPMENT MANAGER ; Laurence White NP ; Rea Curry Discharge Orders/Prescriptions Prescriptions: New amiodarone 200 mg Tablet 200 mg PO BID 7 Days Qty: 14 RF: 0 amiodarone 200 mg Tablet 200 mg PO DAILY 30 Days Qty: 30 RF: 0 metoprolol tartrate 25 mg Tablet 12.5 mg PO BID 30 Days Qty: 30 RF: 0 Continued aspirin 81 mg tablet,delayed release (DR/EC) 81 mg PO DAILY RF: 0 spironolactone 25 mg tablet 25 mg PO DAILY RF: 0 Trelegy Ellipta 200-62.5-25 mcg blister with device 1 inh inhalation DAILY Qty: 60 RF: 6 albuterol sulfate 90 mcg/actuation HFA aerosol inhaler 2 puff inhalation Q4H PRN (Reason: shortness of breath or wheezing) Qty: 8.5 RF: 6 pregabalin 75 mg capsule 75 mg PO TID PRN (Reason: Pain) RF: 0 atorvastatin 80 mg tablet 80 mg PO DAILY RF: 0 icosapent ethyl 1 gram capsule 2 g PO BID RF: 0 guaifenesin 400 mg tablet 400 mg PO BID RF: 0 furosemide [Lasix] 40 mg tablet 40 mg PO DAILY Qty: 10 RF: 0 baclofen 10 mg tablet 10 mg PO TID PRN (Reason: Pain) RF: 0 tramadol 50 mg tablet 50 mg PO .5XD PRN (Reason: Pain) RF: 0 loratadine 10 MG tablet 10 mg PO DAILY RF: 0 allopurinol 100 MG tablet 100 mg PO DAILY RF: 0 ablridaz-znc-VA-lycopen-lutein 1 EACH tablet 1 tab PO DAILY RF: 0 bupropion HCl (smoking deter) 150 mg tablet extended release 12 hr 150 mg PO BID RF: 0 Eliquis 5 mg tablet 5 mg PO BID Qty: 60 RF: 0 omeprazole 20 mg capsule,delayed release(DR/EC) 20 mg PO DAILY Qty: 30 RF: 0 Discontinued metoprolol tartrate 25 mg Tablet 25 mg PO BID Qty: 60 RF: 0 Referrals / Follow Up: Jb Melendez Chi, MD [Primary Care Provider] - Rea Curry PA [PHYSICIAN FOOD COOKING MACHINE OPERATOR] - In 1 Week Disposition Disposition (needs filled in before D/C Order can be placed): Home, Self Care
[2021-02-20] MEDS: Spironolactone 25 MG Tablet PO (10:47)
[2021-02-20] MEDS: Pantoprazole Sodium 20 MG Tablet PO (10:47)
[2021-02-20] MEDS: buPROPion (SR) 150 MG Tablet.SA PO (10:47)
[2021-02-20] MEDS: guaiFENesin 600 MG Tablet PO (10:47)
[2021-02-20] MEDS: Amiodarone 200 MG Tablet PO (10:48)
[2021-02-20] MEDS: Loratadine 10 MG Tablet PO (10:48)
--- NOTE | 2021-02-20 10:48 | PCM.DC.SUM ---
Documented by User: KAI Jamil 02/20/21 10:53 Providers Date of Admission: 02/19/21 Primary Care Physician: Dr. Jb Melendez MD Consultations 02/19/21 10:50 Consult: Cardiology Routine Consulting Provider: Jonatan Farley Reason for Consult: recurrent Vtach EMERGENT Consult: No MD Notified: Yes Date Notified: 02/19/21 Time Notified: 10:50 Method of Notification: Provider Initiated Reason For Visit: DYSRHYTHMIA Diagnosis Discharge Diagnosis (1) Atherosclerosis of coronary artery of [place] heart without angina pectoris: Status: Chronic Code(s): I25.10 - Atherosclerotic heart disease of [place] coronary artery without angina pectoris Qualifiers: Coronary Disease-Associated Artery/Lesion type: [place] artery Qualified Code(s): I25.10 - Atherosclerotic heart disease of [place] coronary artery without angina pectoris (2) Essential (primary) hypertension: Status: Chronic Code(s): I10 - Essential (primary) hypertension (3) Hyperlipidemia: Status: Chronic Code(s): E78.5 - Hyperlipidemia, unspecified Qualifiers: Hyperlipidemia type: unspecified Qualified Code(s): E78.5 - Hyperlipidemia, unspecified (4) Paroxysmal atrial fibrillation: Status: Acute Code(s): I48.0 - Paroxysmal atrial fibrillation (5) Chronic hypoxemic respiratory failure: Status: Chronic Code(s): J96.11 - Chronic respiratory failure with hypoxia (6) Nicotine dependence in remission: Status: Acute Code(s): F17.201 - Nicotine dependence, unspecified, in remission (7) Dysrhythmia: Status: Acute Code(s): I49.9 - Cardiac arrhythmia, unspecified Qualifiers: Arrhythmia type: other cardiac arrhythmia Qualified Code(s): I49.8 - Other specified cardiac arrhythmias (8) TIA (transient ischemic attack): Status: Ruled-out Code(s): G45.9 - Transient cerebral ischemic attack, unspecified (9) Ischemic cardiomyopathy: Status: Chronic Code(s): I25.5 - Ischemic cardiomyopathy Medications at Discharge Home Medications loratadine 10 mg PO DAILY 06/12/19 aspirin 81 mg tablet,delayed release 81 mg PO DAILY 06/19/19 allopurinol 100 mg PO DAILY 07/17/20 ikwxknvk-znm-VW-lycopen-lutein 1 tab PO DAILY 07/17/20 atorvastatin 80 mg tablet 80 mg PO DAILY tab 09/17/20 baclofen 10 mg tablet 10 mg PO TID PRN tab 09/17/20 bupropion HCl (smoking deter) 150 mg tablet,12 hr sustained-release(smoking deterrent) 150 mg PO BID tab 09/17/20 guaifenesin 400 mg tablet 400 mg PO BID tab 09/17/20 icosapent ethyl 1 gram capsule 2 g PO BID cap 09/17/20 pregabalin 75 mg capsule 75 mg PO TID PRN cap 09/17/20 spironolactone 25 mg tablet 25 mg PO DAILY tab 09/17/20 tramadol 50 mg tablet 50 mg PO .5XD PRN tab 09/17/20 albuterol sulfate 90 mcg/actuation aerosol inhaler 2 puff INHALATION Q4H PRN #8.5 g 12/22/20 fluticasone fur. 200 mcg-umeclid 62.5 mcg-vilant 25 mcg inhalat.powder 1 inh INHALATION DAILY #60 ea 12/22/20 Eliquis 5 mg PO BID #60 tab 01/18/21 omeprazole 20 mg PO DAILY #30 cap 01/18/21 furosemide 40 mg tablet 40 mg PO DAILY #10 tab 02/08/21 amiodarone 200 mg PO BID 7 Days #14 tab 02/20/21 amiodarone 200 mg PO DAILY 30 Days #30 tab 02/20/21 metoprolol tartrate 12.5 mg PO BID 30 Days #30 tab 02/20/21 Hospital Course Operations None Procedures EKG Summary of Care Provided Minutes Spent on Discharge: 35 Hospital Course: Patient was admitted on 02/19/2021 dysrhythmia. Patient was initially in SVT but was given amiodarone in the ER and converted to a fib. Patient had recent echocardiogram on 01/26/2021 that showed EF of 40%. Patient was evaluated by cardiology during his hospital stay and will follow up outpatient for cardiac catheterization and possible evaluation by EP for pacemaker. Patient will be discharged home on all home medications along with amiodarone and decreased dosing of metoprolol. Patient will be on twice daily amiodarone dosing x1 week and then go to daily p.o. dosing. Physical Exam Const alert, oriented x3 and no apparent distress General Appearance: cooperative HEENT normocephalic and head/scalp atraumatic Eyes conjunctivae normal and no scleral icterus Neck full ROM and supple General: trachea midline Resp normal respiratory effort, normal air movement and clear to auscultation bilaterally Cardio regular rate, regular rhythm, S1 normal heart sound, S2 normal heart sound and peripheral pulses 2+ throughout GI normal to inspection, nondistended, normoactive bowel sounds, soft to palpation and non-tender Extremity normal capillary refill and no clubbing, cyanosis or edema General Extremity: no tenderness to palpation of joints or extremities Skin skin turgor normal Lesions: no lesions Rashes: no rashes Neuro no focal motor deficits and no sensory deficits noted Speech: speech normal Gait (Neuro): normal gait Motor Exam: Negative for general weakness Psych affect normal Appearance: appropriate Weight / BMI Weight Weight: 149 lb 7.574 oz Body Mass Index (BMI) 28.0 ABG / Lab / Microbiology Data Result Diagrams: 02/20/21 06:14 02/20/21 06:14 Laboratory: Laboratory Results - last 24 hr 02/19/21 16:15: PT 14.9, INR 1.2, APTT 35.3 02/20/21 06:14: WBC 7.3, RBC 4.40 L, Hgb 12.8 L, Hct 39.4 L, MCV 89.5, MCH 29.1, MCHC 32.5, RDW Std Deviation 47.0 H, RDW Coeff of Sujata 14.2, Plt Count 284, MPV 10.1, Immature Gran % (Auto) 0.500, Neut % (Auto) 59.5, Lymph % (Auto) 26.8, [place]ing % (Auto) 13.1 H, Eos % (Auto) 0.0, Baso % (Auto) 0.1, Absolute Neuts (auto) 4.4, Absolute Lymphs (auto) 1.96, Nucleated RBC % 0 02/20/21 06:14: Sodium 140, Potassium 4.0, Chloride 105, Carbon Dioxide 27.0, Anion Gap 8, BUN 23 H, Creatinine 1.04, Estim Creat Clear Calc 47.49, Est GFR (MDRD) Af Amer 90, Est GFR (MDRD) Non-Af 75, BUN/Creatinine Ratio 22.1 H, Glucose 96, Calcium 9.4 D/C Instructions Discharge Diet: Low fat / Low cholesterol Call your doctor if you observe: Shortness of breath, Dizziness, Chest pain and Increased palpitations (irregular heartbeat) Please Follow Up With: Rea Curry, PA When: 1 week Meaningful Use Info Meaningful Use Diagnoses (Choose all that apply): None applicable Discharge Plan Admission Admit Date/Time: 02/19/21 15:04 Primary Reason for Your Visit: Atrial Fibrillation Attending Provider: Petros Barker Primary Care Provider: Jb Melendez Chi Consulting Providers: Melvin Wagner ; Jose E Owusu ; Ced Wiggins ; Sky Ryan ; Elmer Navarro ; Sonia Don ; Damaso Her ; Priti Moore ; Rodney Noe ; Robert Salgado ; Ronnie Martines SUPERVISOR SULFURIC [employer]ID PLANT ; Laurence White NP ; Rea Curry Discharge Orders/Prescriptions Prescriptions: New amiodarone 200 mg Tablet 200 mg PO BID 7 Days Qty: 14 RF: 0 amiodarone 200 mg Tablet 200 mg PO DAILY 30 Days Qty: 30 RF: 0 metoprolol tartrate 25 mg Tablet 12.5 mg PO BID 30 Days Qty: 30 RF: 0 Continued aspirin 81 mg tablet,delayed release (DR/EC) 81 mg PO DAILY RF: 0 spironolactone 25 mg tablet 25 mg PO DAILY RF: 0 Trelegy Ellipta 200-62.5-25 mcg blister with device 1 inh inhalation DAILY Qty: 60 RF: 6 albuterol sulfate 90 mcg/actuation HFA aerosol inhaler 2 puff inhalation Q4H PRN (Reason: shortness of breath or wheezing) Qty: 8.5 RF: 6 pregabalin 75 mg capsule 75 mg PO TID PRN (Reason: Pain) RF: 0 atorvastatin 80 mg tablet 80 mg PO DAILY RF: 0 icosapent ethyl 1 gram capsule 2 g PO BID RF: 0 guaifenesin 400 mg tablet 400 mg PO BID RF: 0 furosemide [Lasix] 40 mg tablet 40 mg PO DAILY Qty: 10 RF: 0 baclofen 10 mg tablet 10 mg PO TID PRN (Reason: Pain) RF: 0 tramadol 50 mg tablet 50 mg PO .5XD PRN (Reason: Pain) RF: 0 loratadine 10 MG tablet 10 mg PO DAILY RF: 0 allopurinol 100 MG tablet 100 mg PO DAILY RF: 0 ogjianrt-pmw-JM-lycopen-lutein 1 EACH tablet 1 tab PO DAILY RF: 0 bupropion HCl (smoking deter) 150 mg tablet extended release 12 hr 150 mg PO BID RF: 0 Eliquis 5 mg tablet 5 mg PO BID Qty: 60 RF: 0 omeprazole 20 mg capsule,delayed release(DR/EC) 20 mg PO DAILY Qty: 30 RF: 0 Discontinued metoprolol tartrate 25 mg Tablet 25 mg PO BID Qty: 60 RF: 0 Referrals / Follow Up: Jb Melendez Chi, MD [Primary Care Provider] - Rea Curry PA [PHYSICIAN DRAWER UPFITTER] - In 1 Week Disposition Disposition (needs filled in before D/C Order can be placed): Home, Self Care Documented by User: Dr. Petros Barker MD 02/20/21 14:31 Providers Date of Admission: 02/19/21 Reason For Visit: DYSRHYTHMIA Medications at Discharge Home Medications loratadine 10 mg PO DAILY 06/12/19 aspirin 81 mg tablet,delayed release 81 mg PO DAILY 06/19/19 allopurinol 100 mg PO DAILY 07/17/20 dtnnwzxk-row-WT-lycopen-lutein 1 tab PO DAILY 07/17/20 atorvastatin 80 mg tablet 80 mg PO DAILY tab 09/17/20 baclofen 10 mg tablet 10 mg PO TID PRN tab 09/17/20 bupropion HCl (smoking deter) 150 mg tablet,12 hr sustained-release(smoking deterrent) 150 mg PO BID tab 09/17/20 guaifenesin 400 mg tablet 400 mg PO BID tab 09/17/20 icosapent ethyl 1 gram capsule 2 g PO BID cap 09/17/20 pregabalin 75 mg capsule 75 mg PO TID PRN cap 09/17/20 spironolactone 25 mg tablet 25 mg PO DAILY tab 09/17/20 tramadol 50 mg tablet 50 mg PO .5XD PRN tab 09/17/20 albuterol sulfate 90 mcg/actuation aerosol inhaler 2 puff INHALATION Q4H PRN #8.5 g 12/22/20 fluticasone fur. 200 mcg-umeclid 62.5 mcg-vilant 25 mcg inhalat.powder 1 inh INHALATION DAILY #60 ea 12/22/20 Eliquis 5 mg PO BID #60 tab 01/18/21 omeprazole 20 mg PO DAILY #30 cap 01/18/21 furosemide 40 mg tablet 40 mg PO DAILY #10 tab 02/08/21 amiodarone 200 mg PO BID 7 Days #14 tab 02/20/21 amiodarone 200 mg PO DAILY 30 Days #30 tab 02/20/21 metoprolol tartrate 12.5 mg PO BID 30 Days #30 tab 02/20/21 ABG / Lab / Microbiology Data Result Diagrams: 02/20/21 06:14 02/20/21 06:14 Discharge Plan Admission Admit Date/Time: 02/19/21 15:04 Primary Reason for Your Visit: Atrial Fibrillation Attending Provider: Petros Barker Primary Care Provider: Jb Melendez Chi Consulting Providers: Melvin Wagner ; Jose E Owusu ; Ced Wiggins ; Sky Ryan ; Elmer Navarro ; Sonia Don ; Damaso Her ; Priti Moore ; Rodney Noe ; Robert Salgado ; Ronnie Martines SUPERVISOR SULF[employer]IC ACID PLANT ; Laurence White SUPERVISOR SULFURIC ACID PLANT ; Rea Curry PA Discharge Orders/Prescriptions Prescriptions: New amiodarone 200 mg Tablet 200 mg PO BID 7 Days Qty: 14 RF: 0 amiodarone 200 mg Tablet 200 mg PO DAILY 30 Days Qty: 30 RF: 0 metoprolol tartrate 25 mg Tablet 12.5 mg PO BID 30 Days Qty: 30 RF: 0 Continued aspirin 81 mg tablet,delayed release (DR/EC) 81 mg PO DAILY RF: 0 spironolactone 25 mg tablet 25 mg PO DAILY RF: 0 Trelegy Ellipta 200-62.5-25 mcg blister with device 1 inh inhalation DAILY Qty: 60 RF: 6 albuterol sulfate 90 mcg/actuation HFA aerosol inhaler 2 puff inhalation Q4H PRN (Reason: shortness of breath or wheezing) Qty: 8.5 RF: 6 pregabalin 75 mg capsule 75 mg PO TID PRN (Reason: Pain) RF: 0 atorvastatin 80 mg tablet 80 mg PO DAILY RF: 0 icosapent ethyl 1 gram capsule 2 g PO BID RF: 0 guaifenesin 400 mg tablet 400 mg PO BID RF: 0 furosemide [Lasix] 40 mg tablet 40 mg PO DAILY Qty: 10 RF: 0 baclofen 10 mg tablet 10 mg PO TID PRN (Reason: Pain) RF: 0 tramadol 50 mg tablet 50 mg PO .5XD PRN (Reason: Pain) RF: 0 loratadine 10 MG tablet 10 mg PO DAILY RF: 0 allopurinol 100 MG tablet 100 mg PO DAILY RF: 0 dfywkvle-ffj-AM-lycopen-lutein 1 EACH tablet 1 tab PO DAILY RF: 0 bupropion HCl (smoking deter) 150 mg tablet extended release 12 hr 150 mg PO BID RF: 0 Eliquis 5 mg tablet 5 mg PO BID Qty: 60 RF: 0 omeprazole 20 mg capsule,delayed release(DR/EC) 20 mg PO DAILY Qty: 30 RF: 0 Discontinued metoprolol tartrate 25 mg Tablet 25 mg PO BID Qty: 60 RF: 0 Referrals / Follow Up: Jb Melendez Chi, MD [Primary Care Provider] - Rea Curry PA [PHYSICIAN DRAWER UPFITTER] - In 1 Week Disposition Disposition (needs filled in before D/C Order can be placed): Home, Self Care Charges/Coding Addendum Addendum: Dr. Barker: I personally reviewed the chart, and agree with the above findings. 70-year-old male presented to the hospital with palpitations and a hollow feeling in his chest. His prehospital EKG demonstrated SVT and while in the emergency room there was concern on telemetry that he had possible V. tach. He does have a history of systolic CHF though he does not appear to be in exacerbation at this time. Cardiology was consulted and decrease the dose of his metoprolol and started him on amiodarone. Since admission telemetry had no signs of SVT or V. tach and cardiology this morning on the day of discharge felt that he could go home with a week of amiodarone twice daily followed by daily amiodarone. They will also schedule him for an outpatient cardiac cath and after that he will need to follow-up with electrophysiology for possible pacemaker placement secondary to the possibility of tachybrady syndrome. Will need to follow-up as an outpatient with his PCP as well as cardiology. Visit Charges Inpatient E&M: 49092 Disch Hosp
[2021-02-20 10:49] VITALS: BP 151/79; PULSE 92
[2021-02-20] MEDS: Metoprolol Tartrate 25 MG Tablet 12.2 MG PO (10:49)
[2021-02-20] MEDS: APIXABAN 5 MG TABLET PO (10:50)
[2021-02-20] MEDS: Furosemide 40 MG Tablet PO (10:50)
--- NOTE | 2021-02-22 14:07 | CASEMGMT ---
PRUDENCIO KANG Discharge Follow-up Phone Call: MARTINACassia: Lu Strata: 3 Call Date: 02/22/21 Discharge Date: 02/20/21 Time of Call: 1400 Duration: 5 min Admitting Diagnosis: Dysrhythmia PRUDENCIO KANG completed follow-up phone call after recent hospitalization. Patient states he is doing well. Patient had no questions regarding discharge instructions. Patient was able to fill prescriptions without any issues. Patient stated that he is out of his Eliquis previously prescribed, PRUDENCIO KANG encouraged patient to call PCP or [facility] for refill. PRUDENCIO KANG encourage patient to schedule follow-up appt with [facility]. Patient voiced understanding. Patient had no further questions or concerns at this time.
== END 2021-02-20 13:43 | disposition home or self-care (01) | DRG 309 ==
LOC: ED 23:25 → PCU 02-19 00:41
PROVIDERS: Internal Medicine; Internal Medicine Interventional Cardiology; Admitting Provider Hospitalist; Emergency Provider Student in an Organized Health Care Education/Training Program; PCP Family Medicine Geriatric Medicine; Visit Provider Family Medicine
DX: I48.0 Paroxysmal atrial fibrillation (principal); I50.22 Chronic systolic (congestive) heart failure; J96.11 Chronic respiratory failure with hypoxia; I11.0 Hypertensive heart disease with heart failure; I47.2 Ventricular tachycardia; I47.1 Supraventricular tachycardia; I49.5 Sick sinus syndrome; E78.5 Hyperlipidemia, unspecified; I25.10 Atherosclerotic heart disease of native coronary artery without angina pectoris; I25.5 Ischemic cardiomyopathy; I65.22 Occlusion and stenosis of left carotid artery; J44.9 Chronic obstructive pulmonary disease, unspecified; G25.3 Myoclonus; I73.9 Peripheral vascular disease, unspecified; M19.90 Unspecified osteoarthritis, unspecified site; Z86.73 Personal history of transient ischemic attack (TIA), and cerebral infarction without residual deficits; Z95.1 Presence of aortocoronary bypass graft; Z79.01 Long term (current) use of anticoagulants; Z79.82 Long term (current) use of aspirin; Z79.899 Other long term (current) drug therapy; Z87.891 Personal history of nicotine dependence
CPT/HCPCS: 36415; 71045; 80048; 83735; 84484; 85025; 85610; 85730; 93005; 93880; 94640; 99285; A4216

== ENCOUNTER → 2021-02-24 14:28 | Outpatient (CLI) | payer MEDICARE, MEDICAID, SELFPAY ==
[2021-02-24 17:08] LABS: Absolute Lymphocyte Count 1.97 X10^3/uL (0.83-4.51); Basophil# 0.01 X10^3/uL; Basophil% 0.1 % (0-1); Hematocrit 38.4 % (40-54); Hemoglobin 12.3 g/dL (13.0-16.5); Lymphocyte # 1.97 X10^3/ul (0.83-4.51); Lymphocyte % 25.1 % (19-41); Mean Corpuscular Hgb 29.4 pg (27.0-32.0); Mean Corpuscular Volume 91.6 fL (80-94); Mean Platelet Vol. 10.6 fl (6.2-12.0); Monocyte# 0.87 X10^3/uL; Monocyte% 11.1 % (0-10); NRBC Flagged by Analyzer 0 % (0-5); Neutrophil # 4.98 X10^3/uL (2.7-7.7); Neutrophil % 63.4 % (47-70); Platelet Count 342 K/mm3 (150-450); RBC Distribution Width CV 14.2 % (11.6-14.6); RBC Distribution Width SD 47.7 fl (35.1-43.9); Red Blood Count 4.19 M/mm3 (4.6-6.2); White Blood Count 7.9 K/mm3 (4.4-11.0)
[2021-02-24 17:35] LABS: Anion Gap 6 (5-15); BUN 18 mg/dL (7-18); BUN/Creat Ratio 16.1 RATIO (10-20); Calcium,Total 9.3 mg/dL (8.5-10.1); Chloride 104 mmol/L (98-107); Creatinine, Serum 1.12 mg/dL (0.70-1.30); EST Glomerular Filtration Rate 68 mL/min (>60); Est Glom Filt Rate - Afr Amer 83 mL/min (>60); Glucose 93 mg/dL (74-106); Potassium 4.6 mmol/L (3.5-5.1); Sodium Level 139 mmol/L (136-145)
== END ==
PROVIDERS: PCP Family Medicine Geriatric Medicine; Visit Provider Family Medicine Geriatric Medicine
DX: I50.22 Chronic systolic (congestive) heart failure (principal)
CPT/HCPCS: 36415; 80048; 85025

== ENCOUNTER → 2021-03-10 13:45 | Outpatient (CLI) | payer MEDICARE, MEDICAID, SELFPAY ==
[2021-03-10 14:24] LABS: Anion Gap 3 (5-15); BUN 23 mg/dL (7-18); BUN/Creat Ratio 20.2 RATIO (10-20); Calcium,Total 9.3 mg/dL (8.5-10.1); Chloride 104 mmol/L (98-107); Creatinine, Serum 1.14 mg/dL (0.70-1.30); EST Glomerular Filtration Rate 67 mL/min (>60); Est Glom Filt Rate - Afr Amer 81 mL/min (>60); Glucose 109 mg/dL (74-106); Potassium 4.9 mmol/L (3.5-5.1); Sodium Level 138 mmol/L (136-145)
== END ==
PROVIDERS: PCP Family Medicine Geriatric Medicine; Visit Provider Family Medicine Geriatric Medicine
DX: N18.32 Chronic kidney disease, stage 3b (principal)
CPT/HCPCS: 36415; 80048

== ENCOUNTER 2021-03-11 02:18 | Emergency (ER) | payer MEDICARE, MEDICAID, SELFPAY ==
[2021-03-11] VITALS (16 sets, daily range): BP systolic 99–154; BP diastolic 52–98; PULSE 53–90; RESP 11–18; TEMP 36.6; O2SAT 93–100; BMI 28.3
--- NOTE | 2021-03-11 02:25 | EKG12_ITS ---
Test Reason : DYSRHYTHMIA Blood Pressure : / mmHG Vent. Rate : 088 BPM Atrial Rate : 088 BPM P-R Int : 128 ms QRS Dur : 096 ms QT Int : 382 ms P-R-T Axes : 078 -18 -81 degrees QTc Int : 462 ms Sinus rhythm with Premature atrial complexes Low voltage QRS Nonspecific ST and T wave abnormality Abnormal ECG Confirmed by CHRISTIANO VENEGAS, GIO ([id number]), electronic news gathering editor MORGAN JOSEPH ([id number]) on 03/15/2021 10:14:23 A M Referred By: LEANA Confirmed By:MADELAINE ALVARADO MD
--- NOTE | 2021-03-11 02:25 | RAD_ITS ---
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 This report was created using [employer] report generation technology. COMPARISON: 02/18/2021. FINDINGS: LUNGS AND PLEURAL SPACES: There is mild bilateral basilar atelectasis. There are no demonstrated pulmonary infiltrates. No pneumothorax. No effusion. HEART: There is a left atrial appendage clip. The heart is not enlarged. MEDIASTINUM: Central airways and mediastinal contour are unremarkable. BONES/JOINTS: There are sternotomy wires. SOFT TISSUES: Unremarkable. VASCULATURE: There are atherosclerotic calcifications of the aortic arch. RAD/Chest 1 View (Portable) IMPRESSION: 1. Left atrial appendage clip. 2. Mild bilateral basilar atelectasis. 3. No evidence for acute cardiopulmonary pathology. Electronically Signed: Ricardo Zapata MD at 2:59 EDT , Service support ,
--- NOTE | 2021-03-11 02:34 | EDS_ITS ---
HPI History of Present Illness Chief Complaint: Palpitations Detail of Chief Complaint: Sustained V. tach Informant: patient and other (Dr. Rodney Noe contacted me because he was contacted by the monitoring company. Patient had sustained V. tach.) Onset/Context/Timing Onset: Hours Context: Sudden Onset Timing: Intermittent Quality: Sustained V. tach Location: Cardiac Current Severity: Severe Maximum Severity: Severe Worsened by: Nothing Relieved by: Nothing Associated Symptoms Associated Symptoms: Palpitations Narrative Narrative: Patient is an elderly male with history of coronary disease, paroxysmal atrial fibrillation on Eliquis, cardiomyopathy with an EF of 40% who was scheduled to see Dr. 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 He also has history of peripheral vestibular neuropathy, polyneuropathy, significant asthma, primary hypertension, hyperlipidemia and nicotine dependency. Patient had a 30-day monitor placed. 30-day monitor indicates that he has had sustained V. tach more than once this evening. Since he did not respond to phone calls by the monitoring service or cardiology EMS was sent to his house. They brought the patient in. He was informed why he was brought in. He informed that during the last admission there was conversation regarding transfer to [facility]. He denies chest pain or heaviness. He does have two pillow orthopnea. Denies PND. He has intermittent dyspnea on exertion. Has had swelling of his legs, which is chronic. Prior similar symptoms: Yes Recent Illness/Hospitalization: Yes [facility] Medical History Asthma-COPD overlap syndrome Atherosclerosis of coronary artery of [place] heart without angina pectoris Benign prostatic hypertrophy Cardiac dysrhythmia Chronic respiratory failure COPD (chronic obstructive pulmonary disease) CVA (cerebral vascular accident) (05/29/18) DDD (degenerative disc disease) Essential (primary) hypertension Hyperlipidemia Ischemic cardiomyopathy Left carotid artery stenosis Myoclonic jerking Nicotine dependence Nocturnal hypoxemia Osteoarthritis Paroxysmal atrial fibrillation (2008) Peripheral vascular occlusive disease Smoking greater than 40 pack years Stage 3 chronic kidney disease Home Medications loratadine 10 mg PO DAILY 06/12/19 [History Last Taken 01/15/21] aspirin 81 mg tablet,delayed release 81 mg PO DAILY 06/19/19 [History Last Taken 01/14/21] allopurinol 100 mg PO DAILY 07/17/20 [History Last Taken 01/15/21] tmvrxsvh-bdf-UK-lycopen-lutein 1 tab PO DAILY 07/17/20 [History Last Taken 07/17/20] atorvastatin 80 mg tablet 80 mg PO DAILY tab 09/17/20 [History Last Taken 01/14/21] baclofen 10 mg tablet 10 mg PO TID PRN tab 09/17/20 [History Last Taken 01/15/21 08:00] bupropion HCl (smoking deter) 150 mg tablet,12 hr sustained-release(smoking deterrent) 150 mg PO BID tab 09/17/20 [History Last Taken 01/15/21] guaifenesin 400 mg tablet 400 mg PO BID tab 09/17/20 [History Last Taken 01/15/21] icosapent ethyl 1 gram capsule 2 g PO BID cap 09/17/20 [History Last Taken 01/15/21] pregabalin 75 mg capsule 75 mg PO TID PRN cap 09/17/20 [History Last Taken 01/15/21 08:00] spironolactone 25 mg tablet 25 mg PO DAILY tab 09/17/20 [History Last Taken 01/15/21] tramadol 50 mg tablet 50 mg PO .5XD PRN tab 09/17/20 [History Last Taken Unknown] albuterol sulfate 90 mcg/actuation aerosol inhaler 2 puff INHALATION Q4H PRN #8.5 g 12/22/20 [Rx Last Taken 01/15/21] fluticasone fur. 200 mcg-umeclid 62.5 mcg-vilant 25 mcg inhalat.powder 1 inh INHALATION DAILY #60 ea 12/22/20 [Rx Last Taken 01/15/21] Eliquis 5 mg PO BID #60 tab 01/18/21 [Rx Last Taken Unknown] omeprazole 20 mg PO DAILY #30 cap 01/18/21 [Rx Last Taken Unknown] amiodarone 200 mg PO BID 7 Days #14 tab 02/20/21 [Rx Last Taken Unknown] amiodarone 200 mg PO DAILY 30 Days #30 tab 02/20/21 [Rx Last Taken Unknown] metoprolol tartrate 12.5 mg PO BID 30 Days #30 tab 02/20/21 [Rx Last Taken Unknown] furosemide 40 mg tablet 40 mg PO DAILY #90 tab 02/26/21 [Rx Last Taken Unknown] Allergy/AdvReac Type Severity Reaction Status Date / Time No Known Allergies Allergy Verified 03/11/21 02:20 Family History Father Colon cancer Surgical History H/O coronary artery bypass surgery (01/17/14) History of carpal tunnel release History of left heart catheterization (07/05/12) History of radiofrequency ablation procedure for cardiac arrhythmia (01/17/14) Social History household members: other housing: apartment current occupational status: employed pets and animals: No Smoking Status: Former smoker quit date: 05/22/20 Tobacco: How many years used: 52 Electronic Cigarette Use: not used second hand exposure: Yes alcohol intake: never substance use type: does not use ROS ROS ED Constitutional Constitutional ED: Denies chills, fever(s), subjective, sweats or weight loss Eyes Eyes: Denies blurry vision, change in vision or diplopia ENT ENT ED: Denies ear pain, rhinorrhea or sore throat Cardiovascular Cardiovascular: Reports orthopnea, palpitations and racing heartbeat; Denies chest pain or paroxysmal nocturnal dyspnea Respiratory/Chest Respiratory/Chest: Reports cough, dyspnea, dyspnea on exertion and orthopnea; Denies paroxysmal nocturnal dyspnea or sputum Gastrointestinal Gastrointestinal: Denies abdominal pain, constipation, diarrhea, nausea or vomiting Genitourinary Genitourinary ED: Denies dysuria, hematuria or urinary frequency Musculoskeletal Musculoskeletal: Denies arthralgias or myalgias Integumentary Denies rash Neurologic Neurologic: Denies headache(s) or weakness Endocrine Endocrinology: Denies polydipsia, polyphagia or polyuria Hematologic/Lymphatic Hematologic/Lymphatic: Reports easy bruising; Denies anemia or easy bleeding Allergic/Immunologic Allergic/Immunologic ED: Denies urticaria EXAM Physical Exam Const Vital Signs: 03/11/21 02:21 03/11/21 02:25 03/11/21 02:27 Temperature 97.9 F Temperature Source Temporal Pulse Rate 90 Respiratory Rate 16 Respiratory Effort Normal Blood Pressure 146/98 H Blood Pressure Mean 114 Blood Pressure Source Blood Pressure Position Blood Pressure Location Pulse Ox 93 96 Oxygen Delivery Method Nasal Cannula Nasal Cannula Oxygen Flow Rate (L/min) 2 2 03/11/21 03:24 03/11/21 03:28 Temperature Temperature Source Pulse Rate 66 66 Respiratory Rate 12 16 Respiratory Effort Blood Pressure 99/52 L 99/52 L Blood Pressure Mean 67 67 Blood Pressure Source Monitor Blood Pressure Position Semi-Fowlers Blood Pressure Location Right Arm Pulse Ox 98 98 Oxygen Delivery Method Room Air Nasal Cannula Oxygen Flow Rate (L/min) 2 Positive well nourished and well developed General Appearance ED: well developed, NAD and pallor; Negative for cyanotic or diaphoretic HEENT HEENT Narrative: Head is atraumatic normocephalic. Mucosa moist. Conjunctive is slightly pale. There is no scleral icterus. Eyes PERRL and EOMs intact bilaterally General Eye ED: Yes pale conjunctiva; Negative for scleral icterus Neck no lymphadenopathy, supple and no JVD Resp normal respiratory effort and No clear to auscultation bilaterally Auscultation: rales bilateral base Cardio regular rate, regular rhythm, S1 normal heart sound, S2 normal heart sound and no murmurs GI normal to inspection, nondistended, normoactive bowel sounds, non-tender and non-distended; Negative for hepatosplenomegaly GI Narrative: There is no palpable pulsatile mass. There is no abdominal bruit. Palpation: soft; Negative for mass Back/Spine no CVA tenderness Cervical Spine: Negative for cervical spine tenderness Thoracic Spine / Upper Back: Negative for thoracic spinal tenderness or paraspinal muscle tenderness Extremity Negative for normal to inspection General Extremety ED: Yes edema; Negative for tenderness General Extremity: edema Neuro oriented x3 and CN's II-XII intact bilaterally Sensorium / Orientation: alert Psych mental status grossly normal Skin no rashes or lesions noted and no wounds Skin Narrative: He has numerous bruises noted. He has irritation from the tape holding the monitor in place against his sternum. General Skin Exam: pallor; Negative for jaundice MDM MDM MDM Narrative Medical decision making narrative: Per discussion with Dr. Rodney Noe patient was started on amiodarone drip. Appropriate lab work was obtained. Patient require transfer to [facility]. He was made aware of this. Lab Data Attestation: I reviewed the patient's lab results. Labs: Laboratory Results - last 24 hr 03/11/21 03/11/21 03/11/21 02:35 02:35 02:35 WBC 7.9 RBC 4.22 L Hgb 12.2 L Hct 38.1 L MCV 90.3 MCH 28.9 MCHC 32.0 RDW Std Deviation 45.6 H RDW Coeff of Sujata 13.8 Plt Count 369 MPV 10.7 Immature Gran % (Auto) 0.300 Neut % (Auto) 64.1 Lymph % (Auto) 23.8 [place] % (Auto) 11.5 H Eos % (Auto) 0.0 Baso % (Auto) 0.3 Absolute Neuts (auto) 5.1 Absolute Lymphs (auto) 1.88 Nucleated RBC % 0 Sodium 137 Potassium 3.5 Chloride 103 Carbon Dioxide 30.0 Anion Gap 4 L BUN 23 H Creatinine 1.20 Estim Creat Clear Calc 41.16 Est GFR (MDRD) Af Amer 76 Est GFR (MDRD) Non-Af 63 BUN/Creatinine Ratio 19.2 Glucose 132 H Lactic Acid Calcium 9.1 Total Bilirubin 0.40 AST 20 ALT 20 Alkaline Phosphatase 119 H Troponin I High Sens 15 B-Natriuretic Peptide 185.2 H Total Protein 7.9 Albumin 2.9 L Globulin 5.0 H Albumin/Globulin Ratio 0.6 L 03/11/21 03:02 WBC RBC Hgb Hct MCV MCH MCHC RDW Std Deviation RDW Coeff of Sujata Plt Count MPV Immature Gran % (Auto) Neut % (Auto) Lymph % (Auto) [place] % (Auto) Eos % (Auto) Baso % (Auto) Absolute Neuts (auto) Absolute Lymphs (auto) Nucleated RBC % Sodium Potassium Chloride Carbon Dioxide Anion Gap BUN Creatinine Estim Creat Clear Calc Est GFR (MDRD) Af Amer Est GFR (MDRD) Non-Af BUN/Creatinine Ratio Glucose Lactic Acid 1.1 Calcium Total Bilirubin AST ALT Alkaline Phosphatase Troponin I High Sens B-Natriuretic Peptide Total Protein Albumin Globulin Albumin/Globulin Ratio Radiography Chest X-Ray - ED: 1 View, Read by ED Physician (Interpreted by me at 0251), Unchanged, Mediastinum, Bony Structures, No Acute Disease, Chronic Changes, Cardiomegaly and - (Media sternotomy wires noted. Mild cardiomegaly.) Diagnostic Testing: Clinical Impression(s) from Imaging Studies Chest X-Ray 03/11/21 02:25 IMPRESSION: 1. Left atrial appendage clip. 2. Mild bilateral basilar atelectasis. 3. No evidence for acute cardiopulmonary pathology. Electronically Signed: Ricardo Zapata MD at 2:59 EDT , Service support , EKG Initial EKG: Attestation: I personally reviewed and interpreted this EKG as follows: Interpretation: Sinus Rhythm (There are premature atrial beats noted. Ventricular rate 88. MN interval 220 ms. Cures duration 96 ms. QT duration 382 ms. [place] is normal. There is artifact which computer is reading is nonseptic ST-T wave changes. There is evidence of low voltage.) Critical Care Time Critical Care Time: Yes Critical care time (excluding procedures): 30-74 minutes (33 minutes), Including time spent: (History, physical, documentation, interpretation laboratory results, initiation of therapy), Discussing w/Patient &/or Family/Director Of Volunteer Services, Discussing w/Consultants and Arranging Admission or Transfer Discharge Plan Triage Chief Complaint: Palpitations ED Provider: Armani Srevin Dx/Rx/DC Orders Clinical Impression: Sustained ventricular tachycardia, ACC/AHA stage B congestive heart failure due to ischemic cardiomyopathy Prescriptions: No Action aspirin 81 mg tablet,delayed release (DR/EC) 81 mg PO DAILY RF: 0 spironolactone 25 mg tablet 25 mg PO DAILY RF: 0 Trelegy Ellipta 200-62.5-25 mcg blister with device 1 inh inhalation DAILY Qty: 60 RF: 6 albuterol sulfate 90 mcg/actuation HFA aerosol inhaler 2 puff inhalation Q4H PRN (Reason: shortness of breath or wheezing) Qty: 8.5 RF: 6 pregabalin 75 mg capsule 75 mg PO TID PRN (Reason: Pain) RF: 0 atorvastatin 80 mg tablet 80 mg PO DAILY RF: 0 icosapent ethyl 1 gram capsule 2 g PO BID RF: 0 guaifenesin 400 mg tablet 400 mg PO BID RF: 0 baclofen 10 mg tablet 10 mg PO TID PRN (Reason: Pain) RF: 0 tramadol 50 mg tablet 50 mg PO .5XD PRN (Reason: Pain) RF: 0 loratadine 10 MG tablet 10 mg PO DAILY RF: 0 allopurinol 100 MG tablet 100 mg PO DAILY RF: 0 atgyjkrj-kdz-BE-lycopen-lutein 1 EACH tablet 1 tab PO DAILY RF: 0 bupropion HCl (smoking deter) 150 mg tablet extended release 12 hr 150 mg PO BID RF: 0 Eliquis 5 mg tablet 5 mg PO BID Qty: 60 RF: 0 omeprazole 20 mg capsule,delayed release(DR/EC) 20 mg PO DAILY Qty: 30 RF: 0 amiodarone 200 mg Tablet 200 mg PO BID 7 Days Qty: 14 RF: 0 amiodarone 200 mg Tablet 200 mg PO DAILY 30 Days Qty: 30 RF: 0 metoprolol tartrate 25 mg Tablet 12.5 mg PO BID 30 Days Qty: 30 RF: 0 furosemide [Lasix] 40 mg tablet 40 mg PO DAILY Qty: 90 RF: 3 Primary Care Provider: Jb Melendez Chi Referrals: Jb Melendez Chi, MD [Primary Care Provider] - Disposition Disposition: Acute Care Hospital Discharge Location: [facility]
[2021-03-11 03:04] LABS: Absolute Lymphocyte Count 1.88 X10^3/uL (0.83-4.51); Absolute Neutrophil Count 5.1 X10^3/uL (2.0-7.7); Basophil# 0.02 X10^3/uL; Basophil% 0.3 % (0-1); Hematocrit 38.1 % (40-54); Hemoglobin 12.2 g/dL (13.0-16.5); Lymphocyte # 1.88 X10^3/ul (0.83-4.51); Lymphocyte % 23.8 % (19-41); Mean Corpuscular Hgb 28.9 pg (27.0-32.0); Mean Corpuscular Volume 90.3 fL (80-94); Mean Platelet Vol. 10.7 fl (6.2-12.0); Monocyte# 0.91 X10^3/uL; Monocyte% 11.5 % (0-10); NRBC Flagged by Analyzer 0 % (0-5); Neutrophil # 5.07 X10^3/uL (2.7-7.7); Neutrophil % 64.1 % (47-70); Platelet Count 369 K/mm3 (150-450); RBC Distribution Width CV 13.8 % (11.6-14.6); RBC Distribution Width SD 45.6 fl (35.1-43.9); Red Blood Count 4.22 M/mm3 (4.6-6.2); White Blood Count 7.9 K/mm3 (4.4-11.0)
[2021-03-11 03:18] LABS: ALB/GLOB Ratio 0.6 RATIO (0.9-2.4); AST(SGOT) 20 U/L (15-37); Alanine Aminotransfer ALT/SGPT 20 U/L (16-61); Albumin, Serum 2.9 g/dL (3.2-5.0); Alkaline Phosphatase 119 U/L (45-117); Anion Gap 4 (5-15); BUN 23 mg/dL (7-18); BUN/Creat Ratio 19.2 RATIO (10-20); Calcium,Total 9.1 mg/dL (8.5-10.1); Chloride 103 mmol/L (98-107); EST Glomerular Filtration Rate 63 mL/min (>60); Est Glom Filt Rate - Afr Amer 76 mL/min (>60); Estimated Creatinine Clearance 41.16 ml/min; Glucose 132 mg/dL (74-106); Potassium 3.5 mmol/L (3.5-5.1); Protein, Total 7.9 g/dL (6.4-8.2); Sodium Level 137 mmol/L (136-145); Troponin-I HS 15 pg/mL (3.0-78.0)
[2021-03-11 03:22] LABS: BNP,B-Type NATRIURETIC PEPTIDE 185.2 pg/mL (0-100)
[2021-03-11 03:41] LABS: Lactic Acid 1.1 mmol/L (0.4-1.9)
--- NOTE | 2021-03-11 07:07 | ED.RN ---
[facility] transfer center called for update on patient at this time. they are critical bed status and since patient is not established with them and outside their network they will present the case to the transfer team but may deny the patient due to bed status and not established at this time with doctors.
--- NOTE | 2021-03-11 07:24 | ED.RN ---
patient has been accepted to [facility] by dr. rcuz waiting for bed assignment at this time
--- NOTE | 2021-03-11 10:05 | NURSING ---
CALLED [facility], TALKED TO EJ. NO BED YET, DISCHARGE DEPENDENT
--- NOTE | 2021-03-11 13:19 | NURSING ---
[facility] ROOM [id number] NURSE TO NURSE [phone]
--- NOTE | 2021-03-11 13:25 | NURSING ---
CALLED [facility], ETA IS 90 MIN TO 2 HRS
== END 2021-03-11 17:00 | disposition short-term general hospital (02) ==
PROVIDERS: Emergency Provider Emergency Medicine; PCP Family Medicine Geriatric Medicine
DX: I47.2 Ventricular tachycardia (principal); I49.1 Atrial premature depolarization; I13.0 Hypertensive heart and chronic kidney disease with heart failure and stage 1 through stage 4 chronic kidney disease, or unspecified chronic kidney disease; I50.9 Heart failure, unspecified; I25.5 Ischemic cardiomyopathy; E78.5 Hyperlipidemia, unspecified; G25.3 Myoclonus; I25.10 Atherosclerotic heart disease of native coronary artery without angina pectoris; I48.0 Paroxysmal atrial fibrillation; I65.22 Occlusion and stenosis of left carotid artery; G62.9 Polyneuropathy, unspecified; J44.9 Chronic obstructive pulmonary disease, unspecified; M19.90 Unspecified osteoarthritis, unspecified site; N18.30 Chronic kidney disease, stage 3 unspecified; J96.10 Chronic respiratory failure, unspecified whether with hypoxia or hypercapnia; N40.0 Benign prostatic hyperplasia without lower urinary tract symptoms; I73.9 Peripheral vascular disease, unspecified; Z86.73 Personal history of transient ischemic attack (TIA), and cerebral infarction without residual deficits; Z95.1 Presence of aortocoronary bypass graft; Z79.01 Long term (current) use of anticoagulants; Z79.82 Long term (current) use of aspirin; Z79.899 Other long term (current) drug therapy; Z87.891 Personal history of nicotine dependence
CPT/HCPCS: 71045; 80053; 83605; 83880; 84484; 85025; 87426; 93005; 96365; 96366; 99285; A4216

== ENCOUNTER → 2021-03-19 09:57 | Outpatient (CLI) | payer MEDICARE, MEDICAID, SELFPAY ==
[2021-03-19 10:07] VITALS: BP 128/44; PULSE 70; RESP 18; TEMP 35.9; O2SAT 92
[2021-03-19] MEDS: Benralizumab 30 MG/ML Syringe SC (10:12)
== END ==
PROVIDERS: PCP Family Medicine Geriatric Medicine; Referring Provider Internal Medicine Critical Care Medicine; Visit Provider Internal Medicine Critical Care Medicine
DX: J45.50 Severe persistent asthma, uncomplicated (principal)
CPT/HCPCS: 96372; J0517

== ENCOUNTER → 2021-03-25 15:45 | Outpatient (CLI) | payer MEDICARE, MEDICAID, SELFPAY ==
[2021-03-25 18:16] LABS: Anion Gap 3 (5-15); BUN 38 mg/dL (7-18); BUN/Creat Ratio 30.4 RATIO (10-20); Calcium,Total 8.9 mg/dL (8.5-10.1); Chloride 103 mmol/L (98-107); Creatinine, Serum 1.25 mg/dL (0.70-1.30); EST Glomerular Filtration Rate 60 mL/min (>60); Est Glom Filt Rate - Afr Amer 73 mL/min (>60); Glucose 109 mg/dL (74-106); Potassium 4.5 mmol/L (3.5-5.1); Sodium Level 137 mmol/L (136-145)
== END ==
PROVIDERS: PCP Family Medicine Geriatric Medicine; Visit Provider Family Medicine Geriatric Medicine
DX: I10 Essential (primary) hypertension (principal)
CPT/HCPCS: 36415; 80048

== ENCOUNTER 2021-05-19 08:46 | Outpatient (CLI) | payer MEDICARE, MEDICAID, SELFPAY ==
[2021-05-19] MEDS: Benralizumab 30 MG/ML Syringe SC (08:54)
[2021-05-19 09:00] VITALS: BP 133/43; PULSE 68; RESP 18; TEMP 36.2; O2SAT 94
== END 2021-05-19 23:59 | disposition short-term general hospital (02) ==
LOC: MEDOUTP 08:47
PROVIDERS: PCP Family Medicine Geriatric Medicine; Referring Provider Internal Medicine Critical Care Medicine; Visit Provider Internal Medicine Critical Care Medicine
DX: J45.50 Severe persistent asthma, uncomplicated (principal)
CPT/HCPCS: 96372; J0517

== ENCOUNTER 2021-06-16 13:19 | Observation (INO) | payer MEDICARE, MEDICAID, SELFPAY ==
[2021-06-16] VITALS (7 sets, daily range): BP systolic 106–124; BP diastolic 46–82; PULSE 50–82; RESP 12–18; TEMP 36.2–36.7; O2SAT 92–98; BMI 29.7; BMI 29.4
--- NOTE | 2021-06-16 13:59 | CT_ITS ---
STUDY: CT BRAIN WITHOUT CONTRAST REASON FOR EXAM: Male, 70 years old. Head injury due to a fall. Laceration to the forehead. The patient is on anticoagulants. RADIATION DOSAGE (If Supplied By Facility): CTDIvol = ( 44.99 ) mGy, DLP = ( 812.98 ) mGycm TECHNIQUE: Transaxial CT imaging of the brain was performed without administration of intravenous contrast material. Individualized dose optimization techniques were used for this CT. COMPARISON: Comparison is made with prior examination dated 07/17/2020. FINDINGS: Normal soft tissue structures. Normal calvarium. There is mild cerebral atrophy with widening of the extra-axial spaces and ventricular dilatation. Stable focal area of encephalomalacia in the superior aspect of the right parietal occipital lobe posteriorly. Stable focal encephalomalacia is also seen in the medial aspect of the right occipital lobe. Normal basal ganglia and thalami. Normal brainstem. Normal cerebellum. There is prominence of the cisterna magna. This is a normal anatomical variant. There is no intracranial hemorrhage. There are no findings of an acute ischemic infarction. Small mucosal polyp/cyst in the anterior aspect of the right maxillary sinus. CT/Brain/Head without Contrast IMPRESSION: Chronic involutional changes of the brain. Electronically Signed: Navin Matt MD at 14:29 EST ,
--- NOTE | 2021-06-16 14:00 | EKG12_ITS ---
Test Reason : FALL Blood Pressure : / mmHG Vent. Rate : 049 BPM Atrial Rate : 049 BPM P-R Int : 148 ms QRS Dur : 110 ms QT Int : 508 ms P-R-T Axes : 080 -12 049 degrees QTc Int : 458 ms Sinus bradycardia Low voltage QRS Incomplete left bundle branch block Borderline ECG Confirmed by CRISTA VENEGAS, STEVE ([id number]), newspaper editor MORGAN JOSEPH ([id number]) on 06/18/2021 10:13:41 AM Referred By: [facility] Confirmed By:STEVE TOBIN MD
--- NOTE | 2021-06-16 14:00 | ED.VIS.FALL ---
HPI HPI - Fall History of Present Illness Chief Complaint: Fall Informant: patient Narrative Narrative: Patient fell at home today. He states he was sitting on the edge of his chair at the computer playing epicurio and he cottages fell off to the side. He did not pass out. He did not feel lightheaded or syncopal. He did hit his head and had bleeding. He is on Eliquis. He has been feeling fine. He did trip and fall and hurt himself about a week ago where he had a hit his head. But he has not been having a headache or anything since then. He states he feels normal. He does take care of his sister who has trouble with ambulation. Those are the 2 people living in the house. [facility] Medical History (HFpEF) heart failure with preserved ejection fraction ACC/AHA stage B congestive heart failure due to ischemic cardiomyopathy Asthma-COPD overlap syndrome Atherosclerosis of coronary artery of [place] heart without angina pectoris Atrial fibrillation with rapid ventricular response (03/11/21) Benign prostatic hypertrophy Chronic respiratory failure COPD (chronic obstructive pulmonary disease) CVA (cerebral vascular accident) (05/29/18) DDD (degenerative disc disease) Essential (primary) hypertension HFrEF (heart failure with reduced ejection fraction) Hyperlipidemia Ischemic cardiomyopathy Left carotid artery stenosis Myoclonic jerking Nicotine dependence in remission Nicotine dependence, cigarettes, uncomplicated Nocturnal hypoxemia Osteoarthritis Paroxysmal atrial fibrillation (2008) Peripheral vascular occlusive disease Severe persistent asthma Smoking greater than 40 pack years Stage 3 chronic kidney disease Home Medications aspirin 81 mg tablet,delayed release 81 mg PO DAILY 06/19/19 [History Last Taken 01/14/21] allopurinol 100 mg PO DAILY 07/17/20 [History Last Taken 01/15/21] tsyweuzf-jog-LE-lycopen-lutein 1 tab PO DAILY 07/17/20 [History Last Taken 07/17/20] atorvastatin 80 mg tablet 80 mg PO DAILY tab 09/17/20 [History Last Taken 01/14/21] baclofen 10 mg tablet 10 mg PO TID PRN tab 09/17/20 [History Last Taken 01/15/21 08:00] bupropion HCl (smoking deter) 150 mg tablet,12 hr sustained-release(smoking deterrent) 150 mg PO BID tab 09/17/20 [History Last Taken 01/15/21] icosapent ethyl 1 gram capsule 2 g PO BID cap 09/17/20 [History Last Taken 01/15/21] pregabalin 75 mg capsule 75 mg PO TID PRN cap 09/17/20 [History Last Taken 01/15/21 08:00] spironolactone 25 mg tablet 25 mg PO DAILY tab 09/17/20 [History Last Taken 01/15/21] tramadol 50 mg tablet 50 mg PO .5XD PRN tab 09/17/20 [History Last Taken Unknown] albuterol sulfate 90 mcg/actuation aerosol inhaler 2 puff INHALATION Q4H PRN #8.5 g 12/22/20 [Rx Last Taken 01/15/21] fluticasone fur. 200 mcg-umeclid 62.5 mcg-vilant 25 mcg inhalat.powder 1 inh INHALATION DAILY #60 ea 12/22/20 [Rx Last Taken 01/15/21] Eliquis 5 mg PO BID #60 tab 01/18/21 [Rx Last Taken Unknown] omeprazole 20 mg PO DAILY #30 cap 01/18/21 [Rx Last Taken Unknown] furosemide 40 mg tablet 40 mg PO DAILY #90 tab 02/26/21 [Rx Last Taken Unknown] sotalol 120 mg tablet 120 mg PO BID 03/15/21 [History Last Taken Unknown] amoxicillin 875 mg-potassium clavulanate 125 mg tablet 1 tab PO BID #10 tab 05/17/21 [Rx Last Taken Unknown] Allergy/AdvReac Type Severity Reaction Status Date / Time No Known Allergies Allergy Verified 06/16/21 13:20 Family History Father Colon cancer Surgical History H/O coronary artery bypass surgery (01/17/14) History of carpal tunnel release History of electrophysiologic study (03/15/21) History of left heart catheterization (03/12/21) History of radiofrequency ablation procedure for cardiac arrhythmia (01/17/14) Social History household members: other housing: apartment current occupational status: employed pets and animals: No Smoking Status: Former smoker quit date: 05/22/20 Tobacco: How many years used: 52 Electronic Cigarette Use: not used second hand exposure: Yes alcohol intake: never substance use type: does not use ROS ROS ED Constitutional Constitutional ED: Denies chills, fever(s), subjective or sweats Eyes Eyes: Denies blurry vision ENT ENT ED: Denies rhinorrhea or sore throat Cardiovascular Cardiovascular: Denies chest pain, palpitations or racing heartbeat Respiratory/Chest Respiratory/Chest: Reports cough; Denies dyspnea or sputum Gastrointestinal Gastrointestinal: Reports other Details: No black or bloody stools. ; Denies abdominal pain, diarrhea, melena, nausea or vomiting Genitourinary Genitourinary ED: Denies dysuria or hematuria Integumentary Reports Abrasions and other Details: Skin tear of both wrists/hands. Laceration forehead. Abrasion forehead. ; Denies rash Neurologic Neurologic: Denies headache(s) or weakness Psychiatric Psychiatric: Denies anxiety or depression Hematologic/Lymphatic Hematologic/Lymphatic: Reports easy bleeding and easy bruising Allergic/Immunologic Allergic/Immunologic ED: Denies mouth swelling or urticaria EXAM Physical Exam Const Vital Signs: 06/16/21 13:21 06/16/21 13:46 Temperature 98.0 F Temperature Source Oral Pulse Rate 50 L Respiratory Rate 18 Respiratory Effort Normal Respiratory Depth Normal Respiratory Pattern Normal Blood Pressure 122/54 H Blood Pressure Mean 76 Pulse Ox 92 Oxygen Delivery Method Room Air Positive well nourished and well developed; Negative for unkempt General Appearance ED: well developed and NAD; Negative for unkempt HEENT HEENT Narrative: Patient had laceration abrasions on forehead. These are kept wrapped at this time pending CT imaging. trauma Neck full ROM General: Negative for tenderness Chest Wall inspection of chest normal Resp normal respiratory effort Auscultation: Negative for wheezes Cardio regular rate GI non-tender and non-distended Auscultation: normoactive bowel sounds Palpation: soft Back/Spine no CVA tenderness Extremity normal to inspection and full ROM Extremity Narrative: He had skin tears on the back of both hands. However, there is no tenderness or deformity. There is no pain with motion. Lower extremities show no pain. Neuro oriented x3 Sensorium / Orientation: alert Psych mental status grossly normal Appearance: Negative for unkempt Skin Skin Narrative: 2 small skin tears 1 seen on the dorsum of each wrist/hand area. MDM MDM MDM Narrative Medical decision making narrative: Blood work came back showing hemoglobin of 9.6 which is a drop from his baseline. Platelets are normal. White count is normal. I talked with him again. He denies any black or blood seen in the stool. He had some bleeding from his forehead from his fall about a week ago but did not think it was significant. His electrolytes also show significant abnormalities. He has some signs of dehydration with elevated BUN to creatinine ratio. His creatinine is also gone up about 1.0. It is gone up from 1.25-2.26. This is one of his higher prior creatinines. He also has a potassium at 6.7. Although he does not have peaked T waves he does have some bradycardia. I think with the combination of 2 falls in a week, bradycardia, dropped hemoglobin, acute kidney injury and hyperkalemia he should come in the hospital. He did agree to this. I also note that he is on aspirin Eliquis Lasix at 40 a day and sotalol at 120 twice daily. These may be contributing to some of the above findings. He is given a small amount of fluids. I want to be gentle due to his age and history of heart failure. He is clinically stable and comfortable. I also did a rectal exam and will send off Hemoccult. Clinically rectal exam shows no bleeding and shows some light hughes stool. There are some erythema of the gluteal folds but no sign of infection or skin breakdown. Hospitalist is paged. CT of his head shows no acute changes but does show a chronic issues. Procedure: Suture laceration: I unwrapped his head. He has both old and new abrasions on the forehead. There is some that is scabbing over. He also has some abrasions on the left side of his head. He also has a 2 cm vertical laceration at the top of his forehead. There was minimal ooze from the wound but no active bleeding. There is nothing pulsatile. The area was cleaned and anesthetized with 1.5 cc of 2% lidocaine with epi. Good anesthesia was achieved. It was scrubbed and irrigated. It was sutured with 3 interrupted 6-0 Ethilon sutures with good cosmesis and hemostasis and he tolerated this well.. Lab Data Attestation: I reviewed the patient's lab results. Labs: Laboratory Results - last 24 hr 06/16/21 06/16/21 13:40 13:40 WBC 8.4 RBC 3.34 L Hgb 9.6 L Hct 31.7 L MCV 94.9 H MCH 28.7 MCHC 30.3 L RDW Std Deviation 55.6 H RDW Coeff of Sujata 16.1 H Plt Count 311 MPV 11.5 Immature Gran % (Auto) 0.500 Neut % (Auto) 73.2 H Lymph % (Auto) 17.4 L Stafford % (Auto) 8.7 Eos % (Auto) 0.0 Baso % (Auto) 0.2 Absolute Neuts (auto) 6.2 Absolute Lymphs (auto) 1.46 Nucleated RBC % 0 Sodium 136 Potassium 6.7 H* Chloride 107 Carbon Dioxide 26.0 Anion Gap 3 L BUN 61 H Creatinine 2.26 H Estim Creat Clear Calc 22.82 Est GFR (MDRD) Af Amer 37 L Est GFR (MDRD) Non-Af 30 L BUN/Creatinine Ratio 27.0 H Glucose 104 Calcium 9.1 Radiography Diagnostic Testing: Clinical Impression(s) from Imaging Studies Brain CT 06/16/21 13:59 IMPRESSION: Chronic involutional changes of the brain. Electronically Signed: Navin Matt MD at 14:29 EST , EKG Initial EKG: Comments: EKG shows sinus rhythm with bradycardic rate at 49. No ventricular ectopy. Does have diffuse low voltage. Incomplete left bundle. No peaked T waves. MO interval QRS duration and QTc are within normal limits. QRS is at high range of normal with 110 ms. Procedures Lacerations Forehead laceration: Depth: Skin Shape: Linear Prep: Shure-Clens Laceration repair: Irrigated, Lidocaine with epi and Local Irrigated (ml): 50 Number of Sutures/Jeff: 3 Suture Information: Ethilon, Simple and 6-0 Comment: Also see MDM. Discharge Plan Dx/Rx/DC Orders Clinical Impression: Acute kidney injury, Acute hyperkalemia, Multiple falls, Closed head injury, Laceration of scalp, Anemia Disposition Disposition: Acute Care Hospital [facility]
[2021-06-16 14:21] LABS: Absolute Lymphocyte Count 1.46 X10^3/uL (0.83-4.51); Absolute Neutrophil Count 6.2 X10^3/uL (2.0-7.7); Basophil# 0.02 X10^3/uL; Basophil% 0.2 % (0-1); Hematocrit 31.7 % (40-54); Hemoglobin 9.6 g/dL (13.0-16.5); Lymphocyte # 1.46 X10^3/ul (0.83-4.51); Lymphocyte % 17.4 % (19-41); Mean Corp Hgb Conc 30.3 g/dL (32-36); Mean Corpuscular Hgb 28.7 pg (27.0-32.0); Mean Corpuscular Volume 94.9 fL (80-94); Mean Platelet Vol. 11.5 fl (6.2-12.0); Monocyte# 0.73 X10^3/uL; Monocyte% 8.7 % (0-10); NRBC Flagged by Analyzer 0 % (0-5); Neutrophil # 6.16 X10^3/uL (2.7-7.7); Neutrophil % 73.2 % (47-70); Platelet Count 311 K/mm3 (150-450); RBC Distribution Width CV 16.1 % (11.6-14.6); RBC Distribution Width SD 55.6 fl (35.1-43.9); Red Blood Count 3.34 M/mm3 (4.6-6.2); White Blood Count 8.4 K/mm3 (4.4-11.0)
[2021-06-16 14:45] LABS: Anion Gap 3 (5-15); BUN 61 mg/dL (7-18); Calcium,Total 9.1 mg/dL (8.5-10.1); Chloride 107 mmol/L (98-107); Creatinine, Serum 2.26 mg/dL (0.70-1.30); EST Glomerular Filtration Rate 30 mL/min (>60); Est Glom Filt Rate - Afr Amer 37 mL/min (>60); Estimated Creatinine Clearance 22.82 ml/min; Glucose 104 mg/dL (74-106); Potassium 6.7 mmol/L (3.5-5.1); Sodium Level 136 mmol/L (136-145)
[2021-06-16] MEDS: Ipratropium/Albuterol Sulfate 3 ML AMPUL.NEB INHALATION ×2 (15:42→22:12)
--- NOTE | 2021-06-16 15:47 | NURSING ---
PCU SOFYA ACUTE KIDNEY INJURY, HYPERKALEMIA
[2021-06-16] MEDS: Lidocaine 2% /Epi 1:100 (20ml) 20 ML VIAL INFILT (15:56)
--- NOTE | 2021-06-16 16:03 | US_ITS ---
STUDY: RENAL ULTRASOUND - COMPLETE REASON FOR EXAM: Male, 70 years old. MATHIEU TECHNIQUE: Ultrasound evaluation of the kidneys was performed with real-time and static hyatt-scale imaging. COMPARISON: September 26, 2015 FINDINGS: RIGHT KIDNEY: Normal location of the right kidney, which is decreased in size. The right kidney measures 8.3 cm. There is a normal cortex of the right kidney. The renal cortex measures 1.5 cm. There is no right renal mass or cyst. There are no right renal calculi. There is no right hydronephrosis. DISTAL RIGHT URETER: There is non-visualization of the distal right ureter. There is no demonstrated right ureterovesical junction calculus. There is no demonstrated right ureteral jet. LEFT KIDNEY: Normal location of the left kidney, which is decreased in size. The left kidney measures 8.9 cm. There is a normal cortex of the left kidney. The renal cortex measures 2.1s cm. There are cysts measuring 3.4 and 2.6 cm. There are no left renal calculi. There is no left hydronephrosis. DISTAL LEFT URETER: There is non-visualization of the distal left ureter. There is no demonstrated left ureterovesical junction calculus. There is no demonstrated left ureteral jet. BLADDER: The distended urinary bladder has a volume of 1077 ml. There is a normal wall thickness of the distended urinary bladder. There is no demonstrated mass within the urinary bladder. There are no demonstrated bladder calculi. US/Kidney and Bladder IMPRESSION: Mild atrophy of the kidneys. No hydronephrosis. Left renal cysts. Electronically Signed: Sukhdev Caldera MD at 20:07 EST Reading Location ID and State: [facility] / [place] , Service support ,
[2021-06-16] MEDS: Lactated Ringers 1,000 ML 75 ML IV (17:10)
--- NOTE | 2021-06-16 18:33 | PCM.HP.STD ---
[facility] - General General Date of Admission: 06/16/21 Date of Service: 06/16/21 Chief Complaint: Fall HPI Narrative KAMILLA DICKSON, is a 70 M who presented to the department was [facility] on 06/16/2021 with a chief complaint of fall. The patient states that he was sitting on the edge of his chair at his computer playing solitaire and fell out of his chair to the side. He was adamant that he did not pass out did not feel lightheaded or presyncopal. He did however hit his head and had some bleeding. He is on Eliquis at baseline for atrial fibrillation. He states otherwise he has been feeling fine. He did admit that he had a fall about a week ago where he hit his head but did not significantly hurt himself otherwise. He states at that time he tripped over an uneven sidewalk. He denies any headache or other abnormality since that point time. He does help take care of his sister as well at baseline. His only complaint on admission was pain in his head where he had stitches placed for laceration he suffered with this most recent fall and a tremor which she has had chronically for some time. In the emergency department he was afebrile with heart rate between 50 and 61, he was normotensive, his oxygen saturation was 96% on room air and he had a normal respiratory rate. His CBC showed an anemia which is chronic however worsened since March 2021. His baseline appears to be in the 12's and is currently 9.6. Hemoccult stool was performed in the emergency department and was negative. His BMP however was quite abnormal with a serum potassium of 6.7, BUN of 61 which is off his baseline of 23 and a serum creatinine of 2.26 which is off his baseline from 1.1-1.3. An EKG was performed and showed mild bradycardia with a rate of 49, normal sinus rhythm otherwise with an incomplete left bundle and no peak T waves and no ST-T wave changes consistent with ischemia. In the emergency department his laceration was sutured and he was treated with IV fluids x1 L for his renal dysfunction. He was treated with aerosols in the emergency department for his hyperkalemia but without any EKG abnormalities noted any further treatment was held at this time other than IV fluids. Given his acute kidney injury and hyperkalemia request for admission was made. PFSH Medical History (HFpEF) heart failure with preserved ejection fraction ACC/AHA stage B congestive heart failure due to ischemic cardiomyopathy Asthma-COPD overlap syndrome Atherosclerosis of coronary artery of [place] heart without angina pectoris Atrial fibrillation with rapid ventricular response (03/11/21) Benign prostatic hypertrophy Chronic respiratory failure COPD (chronic obstructive pulmonary disease) CVA (cerebral vascular accident) (05/29/18) DDD (degenerative disc disease) Essential (primary) hypertension HFrEF (heart failure with reduced ejection fraction) Hyperlipidemia Ischemic cardiomyopathy Left carotid artery stenosis Myoclonic jerking Nicotine dependence in remission Nicotine dependence, cigarettes, uncomplicated Nocturnal hypoxemia Osteoarthritis Paroxysmal atrial fibrillation (2008) Peripheral vascular occlusive disease Severe persistent asthma Smoking greater than 40 pack years Stage 3 chronic kidney disease Home Medications aspirin 81 mg tablet,delayed release 81 mg PO DAILY 06/19/19 [History Last Taken 06/15/21] allopurinol 100 mg PO DAILY 07/17/20 [History Last Taken 06/16/21] vnmyaltp-nzv-TW-lycopen-lutein 1 tab PO DAILY 07/17/20 [History Last Taken 06/16/21] atorvastatin 80 mg tablet 80 mg PO DAILY tab 09/17/20 [History Last Taken 06/15/21] baclofen 10 mg tablet 10 mg PO TID PRN tab 09/17/20 [History Last Taken 06/16/21] bupropion HCl (smoking deter) 150 mg tablet,12 hr sustained-release(smoking deterrent) 150 mg PO BID tab 09/17/20 [History Last Taken 06/16/21] icosapent ethyl 1 gram capsule 2 g PO BID cap 09/17/20 [History Last Taken 06/16/21] pregabalin 75 mg capsule 75 mg PO BID PRN cap 09/17/20 [History Last Taken 06/16/21] spironolactone 25 mg tablet 12.5 mg PO DAILY tab 09/17/20 [History Last Taken 06/16/21] tramadol 50 mg tablet 50 - 100 mg PO TID PRN tab 09/17/20 [History Last Taken 06/16/21] albuterol sulfate 90 mcg/actuation aerosol inhaler 2 puff INHALATION Q4H PRN #8.5 g 12/22/20 [Rx Last Taken 01/15/21] Eliquis 5 mg PO BID 06/16/21 [History Last Taken 06/16/21] Trelegy Ellipta 1 inh INHALATION DAILY 06/16/21 [History Last Taken 06/15/21] citalopram 10 mg PO DAILY 06/16/21 [History Last Taken 06/16/21] clopidogrel 75 mg PO DAILY 06/16/21 [History Last Taken 06/16/21] furosemide [Lasix] 40 mg PO DAILY 06/16/21 [History Last Taken 06/16/21] metoprolol succinate 12.5 mg PO DAILY 06/16/21 [History Last Taken 06/16/21] omeprazole 20 mg PO DAILY 06/16/21 [History Last Taken 06/16/21] sacubitril-valsartan [Entresto] 1 tab PO DAILY 06/16/21 [History Last Taken 06/16/21] sotalol 80 mg PO BID 06/16/21 [History Last Taken 06/16/21] Allergy/AdvReac Type Severity Reaction Status Date / Time No Known Allergies Allergy Verified 06/16/21 13:20 Family History Father Colon cancer Surgical History H/O coronary artery bypass surgery (01/17/14) History of carpal tunnel release History of electrophysiologic study (03/15/21) History of left heart catheterization (03/12/21) History of radiofrequency ablation procedure for cardiac arrhythmia (01/17/14) Social History household members: other housing: apartment current occupational status: employed pets and animals: No Smoking Status: Former smoker quit date: 05/22/20 Tobacco: How many years used: 52 Electronic Cigarette Use: not used second hand exposure: Yes alcohol intake: never substance use type: does not use ROS Constitutional Constitutional: Denies anorexia, change in weight, chills, fatigue, fever(s), malaise, night sweats, weakness or other Eyes Eyes: Denies blurry vision, change in eye color, change in vision, discharge from eye(s), double vision, erythema, eye pain, loss of vision or other ENT HEENT: Denies abnormal hearing, dysphagia, ear pain, epistaxis, headache(s), hearing loss, nasal congestion, nasal discharge, post nasal drip, sinus pressure, sore throat or other Cardiovascular Cardiovascular: Denies chest pain, claudication, dyspnea on exertion, edema, lightheadedness, orthopnea, palpitations, paroxysmal nocturnal dyspnea, rapid heart rate, syncope or other Respiratory/Chest Respiratory/Chest: Denies cough, dyspnea, excessive phlegm production, hemoptysis, productive cough, shortness of breath at rest, shortness of breath with exertion, wheezing or other Gastrointestinal Gastrointestinal: Denies abdominal pain, coffee ground emesis, constipation, diarrhea, dyspepsia, hematemesis, hematochezia, loose stools, melena, nausea, vomiting or other Genitourinary Genitourinary: Denies burning urination, difficulty urinating, dysuria, hematuria, nocturia, urinary frequency, urinary hesitancy, urinary incontinence, urinary urgency or other Musculoskeletal Musculoskeletal: Reports joint pain and joint stiffness Neurologic Neurologic: Reports tremor(s); Denies abnormal gait, abnormal speech, confusion, disequilibrium, dizziness, focal weakness, headache(s), numbness, paresthesias, seizure-like activity, seizures, syncope, tingling or other Psychiatric Psychiatric: Denies anxiety, depression, homicidal ideation, suicidal ideation or other Endocrine Endocrinology: Denies change in body appearance, cold intolerance, excessive sweating, heat intolerance, polydipsia, polyuria or other Hematologic/Lymphatic Hematologic/Lymphatic: Denies anemia, easy bleeding, easy bruising, lymphadenopathy or other Allergic/Immunologic Allergic/Immunologic: Denies rhinitis, hives, eczemia, asthma or other Vital Signs Vital Signs Vital Signs: 06/16/21 13:21 06/16/21 13:46 06/16/21 15:50 Temperature 98.0 F 97.5 F L Temperature Source Oral Temporal Pulse Rate 50 L 54 L Respiratory Rate 18 14 Respiratory Effort Normal Respiratory Depth Normal Respiratory Pattern Normal Blood Pressure 122/54 H 106/46 L Blood Pressure Mean 76 66 Blood Pressure Source Blood Pressure Position Blood Pressure Location Pulse Ox 92 96 Oxygen Delivery Method Room Air Room Air Oxygen Flow Rate (L/min) 06/16/21 16:41 06/16/21 16:46 06/16/21 17:00 Temperature 97.5 F L Temperature Source Oral Pulse Rate 61 60 Respiratory Rate 18 Respiratory Effort Normal Non-Labored Respiratory Depth Normal Respiratory Pattern Normal Blood Pressure 120/54 L Blood Pressure Mean 76 Blood Pressure Source Monitor Blood Pressure Position Semi-Fowlers Blood Pressure Location Right Arm Pulse Ox 94 Oxygen Delivery Method Nasal Cannula Nasal Cannula Oxygen Flow Rate (L/min) 2 2 Weight Weight: 70.7 kg Body Mass Index (BMI) 29.4 Physical Exam Const alert, oriented x3 and no apparent distress Constitutional Narrative: Overweight, older white male sitting up in bed, appears much older than stated age, appears comfortable and nontoxic, very pleasant General Appearance: cooperative HEENT normocephalic HEENT Narrative: Laceration on frontal portion of scalp with dressing in place, recently sutured, edentulous with mildly dry mucous membranes, Mallampati is two, no thrush Eyes PERRL and EOMs intact bilaterally Eyes Narrative: Conjunctiva are mildly pale, no scleral icterus Neck no lymphadenopathy, supple, no JVD and no carotid bruits Neck Narrative: Trachea midline, no thyroid enlargement Resp normal respiratory effort, no retractions and no use of accessory muscles Resp Narrative: Diffusely diminished with few scattered end expiratory wheezes but otherwise clear Auscultation: Negative for crackles, rales, rhonchi or wheezes Cardio regular rhythm, S1 normal heart sound, S2 normal heart sound, no murmurs, no rub, no gallops, no clicks and no JVD Cardio Narrative: Bradycardia GI normal to inspection, nondistended, normoactive bowel sounds, soft to palpation, non-tender and non-distended Extremity Extremity Narrative: 1+ bilateral lower extremity pitting edema, no cyanosis or clubbing Peripheral Pulses: Yes pulses 2+ throughout Skin no rashes or lesions noted, No no wounds, skin turgor normal, no jaundice, no petechiae and no mottling Skin Narrative: Laceration on forehead and ecchymotic area on left parietal area Neuro oriented x3, CN's II-XII intact bilaterally, moves all extremities and no focal motor deficits Neuro Narrative: Mild intermittent myoclonic jerks noted on exam-patient states these of been chronic, mild generalized weakness with no focal deficits Sensorium / Orientation: awake and alert Speech: speech normal Psych affect normal Results Lab / Micro Data Attestation: I reviewed the patient's lab results. Result Diagrams: 06/16/21 13:40 06/16/21 13:40 Labs: Laboratory Results - last 24 hr 06/16/21 13:40: Sodium 136, Potassium 6.7 H*, Chloride 107, Carbon Dioxide 26.0, Anion Gap 3 L, BUN 61 H, Creatinine 2.26 H, Estim Creat Clear Calc 22.82, Est GFR (MDRD) Af Amer 37 L, Est GFR (MDRD) Non-Af 30 L, BUN/Creatinine Ratio 27.0 H, Glucose 104, Calcium 9.1 06/16/21 13:40: WBC 8.4, RBC 3.34 L, Hgb 9.6 L, Hct 31.7 L, MCV 94.9 H, MCH 28.7, MCHC 30.3 L, RDW Std Deviation 55.6 H, RDW Coeff of Sujata 16.1 H, Plt Count 311, MPV 11.5, Immature Gran % (Auto) 0.500, Neut % (Auto) 73.2 H, Lymph % (Auto) 17.4 L, [place] % (Auto) 8.7, Eos % (Auto) 0.0, Baso % (Auto) 0.2, Absolute Neuts (auto) 6.2, Absolute Lymphs (auto) 1.46, Nucleated RBC % 0 Micro: Microbiology 06/16/21 15:45 Stool Stool Occult Blood (OLIVE) - Final Radiology Impression Brain CT 06/16/21 13:59 IMPRESSION: Chronic involutional changes of the brain. Electronically Signed: Navin Matt MD at 14:29 EST , Assessment & Plan Assessment/Plan (1) Acute kidney injury: (2) Acute hyperkalemia: (3) Multiple falls: (4) Closed head injury: (5) Laceration of scalp: (6) Anemia: (7) Bradycardia: PLAN: MATHIEU -Baseline serum creatinine is 1.1-1.2 -Current serum creatinine is 2.26 -hold home Lasix -Hold Entresto -Hold Aldactone -Patient was given 1 L of IV fluids and will go ahead and give 1 L of IV fluids on the floor and then reassess -With hyperkalemia we will repeat BMP now -Check retroperitoneal ultrasound -UA has been ordered and pending -If renal function does not correct would recommend urine lites to be performed Hyperkalemia -Mild and I do not think that his bradycardia is entirely related to his elevated potassium -Patient was given aerosols in the emergency department -IV fluids -Repeat BMP now to reassess potassium -Potassium sparing medications including Aldactone and Entresto Bradycardia -Hold metoprolol -We will continue sotalol at his current dose given his history of atrial fibrillation -I suspect this is caused by combination of his potassium elevation with his home oral medications that are rate controlling and his MATHIEU -Monitor on telemetry -Check TSH if does not improve with above measures Anemia -Hemoglobin has dropped about 3 g since his most recent measurement -Guaiac was negative -We will hold Eliquis for now -Repeat CBC in a.m. -No overt signs of bleeding other than from his laceration Close head injury with laceration -Sutured in the emergency department -Monitor wound -CT without any significant acute abnormalities Falls -Patient denies adamantly syncopal episodes -Monitor on telemetry -PT/OT consultation Paroxysmal atrial fibrillation -Continue sotalol -Hold Eliquis for now given laceration and drop in hemoglobin and reevaluate tomorrow -Hold metoprolol Asthma/COPD/overlap -Continue home aerosols CAD status post CABG/hyperlipidemia/hypertension/history of V. tach -Continue sotalol -Hold medications as noted above next-continue Mobic as -Discontinue aspirin -Would recommend the patient not be on triple therapy as this increases his risk of GI bleeding -Would recommend discharge on Eliquis (dose dependent on renal function) and Plavix -Continue statin GERD -Continue omeprazole Gout -Continue allopurinol Neuropathy -Hold Lyrica given renal function -Okay to restart once renal function improves DVT prophylaxis -SCDs -Reevaluate renal function and if improved would restart Eliquis CODE STATUS -Full code verified on admission Charges/Coding Visit Charges Inpatient E&M: 96096 Init Hosp L3
[2021-06-16 20:58] LABS: Anion Gap 3 (5-15); BUN 58 mg/dL (7-18); BUN/Creat Ratio 27.5 RATIO (10-20); Calcium,Total 9.2 mg/dL (8.5-10.1); Chloride 106 mmol/L (98-107); Creatinine, Serum 2.11 mg/dL (0.70-1.30); EST Glomerular Filtration Rate 33 mL/min (>60); Est Glom Filt Rate - Afr Amer 40 mL/min (>60); Estimated Creatinine Clearance 23.41 ml/min; Glucose 128 mg/dL (74-106); Potassium 5.9 mmol/L (3.5-5.1); Sodium Level 136 mmol/L (136-145)
[2021-06-16] MEDS: Atorvastatin Calcium 80 MG Tablet PO (22:05)
[2021-06-16] MEDS: buPROPion (SR) 150 MG Tablet.SA PO (22:05)
[2021-06-16] MEDS: Sotalol Hydrochloride 80 MG Tablet PO (22:06)
[2021-06-16] MEDS: Budesonide Respules 0.5 MG/2 ML AMPUL.NEB. INHALATION (22:12)
[2021-06-17] VITALS (16 sets, daily range): BP systolic 110–144; BP diastolic 49–91; PULSE 62–82; RESP 12–22; TEMP 36.4–36.9; O2SAT 87–97
[2021-06-17 05:51] LABS: Absolute Lymphocyte Count 1.54 X10^3/uL (0.83-4.51); Absolute Neutrophil Count 4.1 X10^3/uL (2.0-7.7); Basophil# 0.01 X10^3/uL; Basophil% 0.2 % (0-1); Hematocrit 28.3 % (40-54); Hemoglobin 8.8 g/dL (13.0-16.5); Lymphocyte # 1.54 X10^3/ul (0.83-4.51); Lymphocyte % 23.6 % (19-41); Mean Corp Hgb Conc 31.1 g/dL (32-36); Mean Corpuscular Hgb 28.9 pg (27.0-32.0); Mean Corpuscular Volume 93.1 fL (80-94); Mean Platelet Vol. 11.6 fl (6.2-12.0); Monocyte# 0.88 X10^3/uL; Monocyte% 13.5 % (0-10); NRBC Flagged by Analyzer 0 % (0-5); Neutrophil # 4.08 X10^3/uL (2.7-7.7); Neutrophil % 62.4 % (47-70); Platelet Count 280 K/mm3 (150-450); RBC Distribution Width SD 54.2 fl (35.1-43.9); Red Blood Count 3.04 M/mm3 (4.6-6.2); White Blood Count 6.5 K/mm3 (4.4-11.0)
[2021-06-17 06:18] LABS: ALB/GLOB Ratio 0.7 RATIO (0.9-2.4); AST(SGOT) 18 U/L (15-37); Alanine Aminotransfer ALT/SGPT 17 U/L (16-61); Albumin, Serum 2.9 g/dL (3.2-5.0); Alkaline Phosphatase 113 U/L (45-117); BUN 48 mg/dL (7-18); BUN/Creat Ratio 33.3 RATIO (10-20); Calcium,Total 8.9 mg/dL (8.5-10.1); Chloride 107 mmol/L (98-107); Creatinine, Serum 1.44 mg/dL (0.70-1.30); EST Glomerular Filtration Rate 51 mL/min (>60); Est Glom Filt Rate - Afr Amer 62 mL/min (>60); Globulin 4.1 g/dL (2.2-4.2); Glucose 102 mg/dL (74-106); Phosphorus 3.5 mg/dL (2.5-4.9); Potassium 4.5 mmol/L (3.5-5.1); Sodium Level 139 mmol/L (136-145)
[2021-06-17 06:19] LABS: Anion Gap 5 (5-15)
[2021-06-17] MEDS: Ipratropium/Albuterol Sulfate 3 ML AMPUL.NEB INHALATION ×3 (07:08→20:12)
[2021-06-17] MEDS: Budesonide Respules 0.5 MG/2 ML AMPUL.NEB. INHALATION ×2 (07:08→20:12)
--- NOTE | 2021-06-17 07:36 | PN.HOSP_ITS ---
Subjective Subjective Patient admitted with fall. Patient history of recurrent fall. He had sutures on the forehead. Denies syncope, lightheaded presyncope. No chest pain in the morning. Nurse notified that patient complain of mild chest pain and shortness of breath. Twelve-lead EKG and troponin ordered. Objective Data Objective Data Vital Signs: Vital Signs Temp Pulse Resp BP Pulse Ox 97.6 F L 63 16 118/72 96 06/17/21 02:20 06/17/21 03:00 06/17/21 02:20 06/17/21 02:20 06/17/21 02:20 Oxygen Flow Rate (L/min) 2 Oxygen Delivery Method Nasal Cannula Weight: 155 lb 13.869 oz Body Mass Index (BMI) 29.4 Intake & Output: Intake and Output for Last 24 Hours 06/15/21 06/16/21 06/17/21 23:59 23:59 23:59 Intake Total 610 / 610 997.5 / 997.5 Balance 610 / 610 997.5 / 997.5 Lab / Micro Data Result Diagrams: 06/17/21 05:04 06/17/21 05:04 Labs: Laboratory Results - last 24 hr 06/16/21 13:40: Sodium 136, Potassium 6.7 H*, Chloride 107, Carbon Dioxide 26.0, Anion Gap 3 L, BUN 61 H, Creatinine 2.26 H, Estim Creat Clear Calc 22.82, Est GFR (MDRD) Af Amer 37 L, Est GFR (MDRD) Non-Af 30 L, BUN/Creatinine Ratio 27.0 H , Glucose 104, Calcium 9.1 06/16/21 13:40: WBC 8.4, RBC 3.34 L, Hgb 9.6 L, Hct 31.7 L, MCV 94.9 H, MCH 28.7, MCHC 30.3 L, RDW Std Deviation 55.6 H, RDW Coeff of Sujata 16.1 H, Plt Count 311, MPV 11.5, Immature Gran % (Auto) 0.500, Neut % (Auto) 73.2 H, Lymph % (Auto) 17.4 L, [place] % (Auto) 8.7, Eos % (Auto) 0.0, Baso % (Auto) 0.2, Absolute Neuts (auto) 6.2, Absolute Lymphs (auto) 1.46, Nucleated RBC % 0 06/16/21 20:28: Sodium 136, Potassium 5.9 H, Chloride 106, Carbon Dioxide 27.0, Anion Gap 3 L, BUN 58 H, Creatinine 2.11 H, Estim Creat Clear Calc 23.41, Est GFR (MDRD) Af Amer 40 L, Est GFR (MDRD) Non-Af 33 L, BUN/Creatinine Ratio 27.5 H , Glucose 128 H, Calcium 9.2 06/17/21 05:04: WBC 6.5, RBC 3.04 L, Hgb 8.8 L, Hct 28.3 L, MCV 93.1, MCH 28.9, MCHC 31.1 L, RDW Std Deviation 54.2 H, RDW Coeff of Sujata 16.0 H, Plt Count 280, MPV 11.6, Immature Gran % (Auto) 0.300, Neut % (Auto) 62.4, Lymph % (Auto) 23.6, [place] % (Auto) 13.5 H, Eos % (Auto) 0.0, Baso % (Auto) 0.2, Absolute Neuts (auto) 4.1, Absolute Lymphs (auto) 1.54, Nucleated RBC % 0 06/17/21 05:04: Sodium 139, Potassium 4.5, Chloride 107, Carbon Dioxide 27.0, Anion Gap 5, BUN 48 H, Creatinine 1.44 H, Estim Creat Clear Calc 34.30, Est GFR (MDRD) Af Amer 62, Est GFR (MDRD) Non-Af 51 L, BUN/Creatinine Ratio 33.3 H, Glucose 102, Calcium 8.9, Phosphorus 3.5, Total Bilirubin 0.30, AST 18, ALT 17, Alkaline Phosphatase 113, Total Protein 7.0, Albumin 2.9 L, Globulin 4.1, Albumin/Globulin Ratio 0.7 L Micro: Microbiology 06/16/21 15:45 Stool Stool Occult Blood (OLIVE) - Final Radiography Diagnostic Testing: Radiology Impression Brain CT 06/16/21 13:59 IMPRESSION: Chronic involutional changes of the brain. Electronically Signed: Navin Matt MD at 14:29 EST , Renal Ultrasound 06/16/21 16:03 IMPRESSION: Mild atrophy of the kidneys. No hydronephrosis. Left renal cysts. Electronically Signed: Sukhdev Caldera MD at 20:07 EST Reading Location ID and State: [facility] / [place] , Service support , Physical Exam Narrative General: Alert, Oriented x3, Cooperative HEENT: Lacerated status post suture on forehead. PERRLA, EOMI, Normocephalic Oral: No Gingival or Mucosal Lesions/ Ulcerations Neck: Supple, No JVD, Negative Carotid Bruits Lungs: Air entry diminished in bilateral lung bases. No crepitation/rhonchi Cardiovascular: Sinus rhythm at 68 bpm., Normal S1, Normal S2, No murmurs Abdomen: Bowel Sounds Present, Soft, Non Tender, Non-Distended : No renal angle tenderness. No suprapubic tenderness. Extremities: No edema, Capillary Refill Less than 3 Seconds Skin: No rashes, No breakdown Musculoskeletal: No Tenderness to Palpation of Joints or Extremities Neurological: Cranial nerves II-XII grossly intact, DTR 2+/4 and Symmetrical Psych/Mental Status: Flat affect. Assessment & Plan Assessment/Plan (1) Acute kidney injury: (2) Acute hyperkalemia: (3) Multiple falls: (4) Closed head injury: (5) Laceration of scalp: (6) Anemia: (7) Bradycardia: PLAN: Patient is 70-year-old gentleman who is admitted after a fall seems more mechani joanie. No near syncope or syncope. On color television console monitor sinus rhythm. 1. MATHIEU -Baseline serum creatinine is 1.1-1.2. Improved from admitting 2.262 1.44. Lasix, Entresto, Aldactone on hold. IV fluid 1 L. Monitor intake and output. Renal ultrasound shows mild atrophy otherwise no hydronephrosis. UA is ordered. Hyperkalemia: Resolved. Hold above medications. Paroxysmal A. fib with bradycardia, bradycardia resolved heart rate around 68/min. Continue sotalol. -Hold metoprolol. TSH tomorrow a.m. Patient also had chest pain with shortness of breath. Twelve-lead EKG done. Low voltage QRS complexes. Normal sinus rhythm 70 bpm. -We will continue sotalol at his current dose given his history of atrial fibrillation. TSH ordered. Anemia -Hemoglobin has dropped about 3 g since his most recent measurement. Hemoglobin 8.8, platelet count 280,000. Patient not on anticoagulation. -Guaiac was negative hold Eliquis for now Monitor CBC daily. Close head injury with laceration -Sutured in the emergency department. No significant hematoma. -CT without any significant acute abnormalities Falls -Patient denies adamantly syncopal episodes -Monitor on telemetry -PT/OT consultation Asthma/COPD/overlap -Continue home aerosols CAD status post CABG/hyperlipidemia/hypertension/history of V. tach -Continue sotalol -Hold medications as noted above next-continue Mobic as -Discontinue aspirin -Would recommend the patient not be on triple therapy as this increases his risk of GI bleeding -Would recommend discharge on Eliquis (dose dependent on renal function) and Plavix -Continue statin GERD -Continue omeprazole Gout -Continue allopurinol Neuropathy -Hold Lyrica given renal function -Okay to restart once renal function improves DVT prophylaxis -SCDs -Reevaluate renal function and if improved would restart Eliquis CODE STATUS -Full code verified on admission Charges/Coding Visit Charges Inpatient E&M: 01838 Subs Hosp L2
[2021-06-17] MEDS: Pantoprazole Sodium 20 MG Tablet PO (09:01)
[2021-06-17] MEDS: Multivitamins,Ther W-Minerals Tablet 1 TABLET PO (09:02)
[2021-06-17] MEDS: Citalopram 10 MG Tablet PO (09:03)
[2021-06-17] MEDS: Clopidogrel Bisulfate 75 MG Tablet PO (09:03)
[2021-06-17] MEDS: buPROPion (SR) 150 MG Tablet.SA PO ×2 (09:03→22:03)
[2021-06-17] MEDS: Allopurinol 100 MG Tablet PO (09:03)
[2021-06-17] MEDS: Sotalol Hydrochloride 80 MG Tablet PO ×2 (09:04→22:04)
--- NOTE | 2021-06-17 10:25 | CASEMGMT ---
PRUDENCIO KANG Face to Face with patient for initial transition planning/care coordination assessment. PRUDENCIO KANG introduced self and role at [facility]. Patient lying in bed, alert and oriented. Patient willing to participate in assessment and is able to answer all questions appropriately. Care providers, pharmacy, and demographics verified. Patient wishes to discharge home, denies need for home health at this time. Patient states he has no further needs or concerns at this time. CM to follow for discharge planning needs that may arise. PCP: Al Specialists: Westley, automat car attendant; Francoise, boring and filling machine operator; Preferred Pharmacy: [facility], [facility] retail at discharge. Insurance: Deary RICHELLE [employer] Prescription Benefit: yes Living Will/HPOA: yes but would like to update them, SW notified LNOK: sister Living Arrangements: Patient lives with sister, who he provides care for, in a first floor apartment with ramp to enter the home. Patient states he is independent at home. Transportation: self, public DME/HHC: Patient states he has shower chair, cane, grab bars, nebulizer, and home oxygen with portability through [facility] in [facility]. PRUDENCIO KANG called [facility] and confirmed order for home oxygen 2 lpm at HS and activity. Will monitor progress with therapy for HHC and possible walker at discharge. Disposition Plan: Patient to discharge home with family support and follow-up plans in place. Carlita NYE, RN, CM
--- NOTE | 2021-06-17 12:41 | ED.RN ---
student nurse charting reviewed by this rn. this rn agrees with charting.
--- NOTE | 2021-06-17 13:34 | CASEMGMT ---
Social Work SW assisted pt in completing health care POA and living will. Pt naming his friend Samira Farias as HCPOA. Copy placed in pt chart and originals given to pt. SALVADOR Chairez
--- NOTE | 2021-06-17 16:00 | CASEMGMT ---
PRUDENCIO KANG NOTE: PT/OT notes reviewed and additional therapy recommended. PRUDENCIO KANG to room to talk w/pt. Pt states he would like [facility] for therapy and requests [facility]. While PRUDENCIO KANG in room w/pt, he placed his hand to his left chest and stated he was having sharp pains, especially when taking a deep breath. Fortino FLANNERY, notified and in room to assess pt. Order placed for C: PT/OT. Call placed to [facility] and message left w/Abigail re: referral. Awaiting acceptance. Shwetha NYE RN, CM
[2021-06-17] MEDS: Acetaminophen 325 MG Tablet 650 MG PO (16:14)
--- NOTE | 2021-06-17 16:45 | EKG12_ITS ---
Test Reason : Blood Pressure : / mmHG Vent. Rate : 070 BPM Atrial Rate : 070 BPM P-R Int : 116 ms QRS Dur : 096 ms QT Int : 438 ms P-R-T Axes : 075 014 -09 degrees QTc Int : 473 ms Normal sinus rhythm Low voltage QRS Borderline ECG Confirmed by CRISTA VENEGAS, STEVE ([id number]), script editor MORGAN JOSEPH ([id number]) on 06/21/2021 9:38:12 AM Referred By: SOFYA Confirmed By:STEVE TOBIN MD
[2021-06-17 17:55] LABS: Troponin-I HS 9 pg/mL (3.0-78.0)
[2021-06-17] MEDS: HYDROmorphone 0.5 MG/0.5 ML SYRINGE IV (18:39)
[2021-06-17] MEDS: 0.9% Saline Lock 10 ML Syringe IV (18:39)
[2021-06-17 18:57] LABS: CPK Total, Creatine Kinase 103 U/L (39-308)
[2021-06-17] MEDS: Atorvastatin Calcium 80 MG Tablet PO (22:04)
[2021-06-18] VITALS (11 sets, daily range): BP systolic 137–155; BP diastolic 57–81; PULSE 69–79; RESP 16–18; TEMP 35.8–36.6; O2SAT 87–98
[2021-06-18 03:58] LABS: Bacteria 0 SEEN /hpf (None Seen); Mucous, Urine 0 SEEN /hpf (<or=2+); Red Blood Cells-Urine 0 SEEN /hpf (0-5); Squamous Epithelial Cells - UA 0 SEEN /hpf (0-5); White Blood Cells 0 SEEN /hpf (0-5)
[2021-06-18] MEDS: HYDROmorphone 0.5 MG/0.5 ML SYRINGE IV (03:58)
[2021-06-18 04:01] LABS: Color, Urine Yellow (Yellow); Glucose, Dipstick Normal (Normal); Ketone-Dipstick Negative (Negative); Leukocyte Esterase-Dipstick Negative /ul (Negative); Nitrite-Dipstick Negative (Negative); Occult Blood-Urine Negative /ul (Negative); Protein-Dipstick Negative (Negative); Specific Gravity, Urine 1.015 (1.002-1.030); Urine Bilirubin Dipstick Negative (Negative); Urine Clarity Clear (Clear); Urine Urobilinogen Normal (Normal); Urine pH 6.5 (5.0 - 8.0)
[2021-06-18] MEDS: 0.9% Saline Lock 10 ML Syringe IV (04:02)
[2021-06-18] MEDS: guaiFENesin 1,200 MG Tablet 1200 MG PO ×2 (04:33→08:37)
[2021-06-18 06:14] LABS: Absolute Neutrophil Count 5.8 X10^3/uL (2.0-7.7); Basophil# 0.01 X10^3/uL; Basophil% 0.1 % (0-1); Hematocrit 28.5 % (40-54); Hemoglobin 8.8 g/dL (13.0-16.5); Lymphocyte % 16.3 % (19-41); Mean Corp Hgb Conc 30.9 g/dL (32-36); Mean Corpuscular Hgb 28.5 pg (27.0-32.0); Mean Corpuscular Volume 92.2 fL (80-94); Mean Platelet Vol. 11.3 fl (6.2-12.0); Monocyte# 0.82 X10^3/uL; Monocyte% 10.3 % (0-10); NRBC Flagged by Analyzer 0 % (0-5); Neutrophil # 5.81 X10^3/uL (2.7-7.7); Neutrophil % 72.9 % (47-70); Platelet Count 263 K/mm3 (150-450); RBC Distribution Width CV 16.4 % (11.6-14.6); Red Blood Count 3.09 M/mm3 (4.6-6.2)
[2021-06-18 06:37] LABS: Anion Gap 4 (5-15); BUN 27 mg/dL (7-18); BUN/Creat Ratio 26.5 RATIO (10-20); Calcium,Total 9.5 mg/dL (8.5-10.1); Chloride 108 mmol/L (98-107); Creatinine, Serum 1.02 mg/dL (0.70-1.30); EST Glomerular Filtration Rate 76 mL/min (>60); Est Glom Filt Rate - Afr Amer 92 mL/min (>60); Estimated Creatinine Clearance 48.43 ml/min; Glucose 97 mg/dL (74-106); Potassium 4.5 mmol/L (3.5-5.1); Sodium Level 139 mmol/L (136-145)
[2021-06-18] MEDS: Ipratropium/Albuterol Sulfate 3 ML AMPUL.NEB INHALATION ×2 (07:30→13:10)
[2021-06-18] MEDS: Budesonide Respules 0.5 MG/2 ML AMPUL.NEB. INHALATION (07:30)
--- NOTE | 2021-06-18 08:12 | PN.HOSP_ITS ---
Objective Data Objective Data Vital Signs: Vital Signs Temp Pulse Resp BP Pulse Ox 96.5 F L 73 18 137/57 H 92 06/18/21 03:48 06/18/21 07:33 06/18/21 07:33 06/18/21 03:48 06/18/21 07:33 Oxygen Flow Rate (L/min) 4 Oxygen Delivery Method Nasal Cannula Weight: 155 lb 13.869 oz Body Mass Index (BMI) 29.4 Intake & Output: Intake and Output for Last 24 Hours 06/16/21 06/17/21 06/18/21 23:59 23:59 23:59 Intake Total 610 / 610 1297.5 / 1597.5 600 / 600 Output Total 500 / 500 Balance 610 / 610 1297.5 / 1597.5 100 / 100 Lab / Micro Data Result Diagrams: 06/18/21 05:32 06/18/21 05:32 Labs: Laboratory Results - last 24 hr 06/17/21 16:55: Troponin I High Sens 9 06/17/21 16:55: Total Creatine Kinase 103 06/18/21 03:43: Urine Color Yellow, Urine Clarity Clear, Urine pH 6.5, Ur Specific [place] 1.015, Urine Protein Negative, Urine Glucose (UA) Normal, Urine Ketones Negative, Urine Occult Blood Negative, Urine Nitrite Negative, Urine Bilirubin Negative, Urine Urobilinogen Normal, Ur Leukocyte Esterase Negative, Urine RBC 0 SEEN, Urine WBC 0 SEEN, Ur Squamous Epith Cells 0 SEEN, Urine Bacteria 0 SEEN, Urine Mucus 0 SEEN 06/18/21 05:32: WBC 8.0, RBC 3.09 L, Hgb 8.8 L, Hct 28.5 L, MCV 92.2, MCH 28.5, MCHC 30.9 L, RDW Std Deviation 55.0 H, RDW Coeff of Sujata 16.4 H, Plt Count 263, MPV 11.3, Immature Gran % (Auto) 0.400, Neut % (Auto) 72.9 H, Lymph % (Auto) 16.3 L, [place] % (Auto) 10.3 H, Eos % (Auto) 0.0, Baso % (Auto) 0.1, Absolute Neuts (auto) 5.8, Absolute Lymphs (auto) 1.30, Nucleated RBC % 0 06/18/21 05:32: Sodium 139, Potassium 4.5, Chloride 108 H, Carbon Dioxide 27.0, Anion Gap 4 L, BUN 27 H, Creatinine 1.02, Estim Creat Clear Calc 48.43, Est GFR (MDRD) Af Amer 92, Est GFR (MDRD) Non-Af 76, BUN/Creatinine Ratio 26.5 H, Glucose 97, Calcium 9.5 Micro: Microbiology 06/16/21 15:45 Stool Stool Occult Blood (OLIVE) - Final Assessment/Plan Assessment/Plan (1) Acute kidney injury: CODE(S): N17.9 - Acute kidney failure, unspecified (2) Acute hyperkalemia: CODE(S): E87.5 - Hyperkalemia (3) Multiple falls: CODE(S): R29.6 - Repeated falls (4) Closed head injury: CODE(S): S09.90XA - Unspecified injury of head, initial encounter (5) Laceration of scalp: CODE(S): S01.01XA - Laceration without foreign body of scalp, initial encounter (6) Anemia: CODE(S): D64.9 - Anemia, unspecified (7) Bradycardia: CODE(S): R00.1 - Bradycardia, unspecified PLAN: Patient is 70-year-old gentleman who is admitted after a fall seems more mechanical. No near syncope or syncope. On surveillance system monitor sinus rhythm. 1. MATHIEU -Baseline serum creatinine is 1.1-1.2. Improved from admitting 2.262 1.44. Lasix, Entresto, Aldactone on hold. IV fluid 1 L. Monitor intake and output. Renal ultrasound shows mild atrophy otherwise no hydronephrosis. UA is ordered. Hyperkalemia: Resolved. Hold above medications. Paroxysmal A. fib with bradycardia, bradycardia resolved heart rate around 68/min. Continue sotalol. -Hold metoprolol. TSH tomorrow a.m. Patient also had chest pain with shortness of breath. Twelve-lead EKG done. Low voltage QRS complexes. Normal sinus rhythm 70 bpm. -We will continue sotalol at his current dose given his history of atrial fibrillation. TSH ordered. Anemia -Hemoglobin has dropped about 3 g since his most recent measurement. Hemoglobin 8.8, platelet count 280,000. Patient not on anticoagulation. -Guaiac was negative hold Eliquis for now Monitor CBC daily. Close head injury with laceration -Sutured in the emergency department. No significant hematoma. -CT without any significant acute abnormalities Falls -Patient denies adamantly syncopal episodes -Monitor on telemetry -PT/OT consultation Asthma/COPD/overlap -Continue home aerosols CAD status post CABG/hyperlipidemia/hypertension/history of V. tach -Continue sotalol -Hold medications as noted above next-continue Mobic as -Discontinue aspirin -Would recommend the patient not be on triple therapy as this increases his risk of GI bleeding -Would recommend discharge on Eliquis (dose dependent on renal function) and Plavix -Continue statin GERD -Continue omeprazole Gout -Continue allopurinol Neuropathy -Hold Lyrica given renal function -Okay to restart once renal function improves DVT prophylaxis -SCDs -Reevaluate renal function and if improved would restart Eliquis CODE STATUS -Full code verified on admission
[2021-06-18] MEDS: Pantoprazole Sodium 20 MG Tablet PO (08:37)
[2021-06-18] MEDS: Citalopram 10 MG Tablet PO (08:37)
[2021-06-18] MEDS: Allopurinol 100 MG Tablet PO (08:37)
[2021-06-18] MEDS: Clopidogrel Bisulfate 75 MG Tablet PO (08:37)
[2021-06-18] MEDS: Sotalol Hydrochloride 80 MG Tablet PO (08:37)
[2021-06-18] MEDS: Multivitamins,Ther W-Minerals Tablet 1 TABLET PO (08:37)
[2021-06-18] MEDS: buPROPion (SR) 150 MG Tablet.SA PO (08:37)
--- NOTE | 2021-06-18 10:00 | PCM.DC ---
Discharge Instructions Diet Discharge Diet: No restrictions Dressing / Incision Call your doctor if you observe: Fever of 101 or Higher, Coldness, Increased Pain, Numbness or Tingling, Change in Color, Inability to urinate, Inability to have a bowel movement, Shortness of breath, Dizziness, Fainting spells, Swelling in the ankles, Chest pain, Prolonged hiccupping, Increased palpitations (irregular heartbeat), Calf discomfort and Uncontrolled pain Follow Up Care Test Results: Test results from this visit will be discussed in further detail at your follow-up appointment, if applicable. Discharge Plan Admission Admit Date/Time: 06/16/21 15:54 Primary Reason for Your Visit: Acute kidney injury, paroxysmal A. fib with bradycardia Attending Provider: Luis Moon Primary Care Provider: Jb Melendez Chi Instructions Additional Instructions / Restrictions: Spironolactone was discontinued because of hyperkalemia and MATHIEU. Lasix dose reduced. Patient on minimal dose of metoprolol. Discussed with Dr. Owusu and requested early follow-up. Discharge Orders/Prescriptions Prescriptions: New sennosides-docusate sodium [Stool Softener-Stimulant Laxat] 8.6-50 mg Tablet 2 tab PO BID PRN PRN (Reason: Constipation) Qty: 0 RF: 0 Mucus Relief ER 1,200 mg Tablet Extended Release 12hr 1,200 mg PO BID Qty: 14 RF: 0 Continued albuterol sulfate 90 mcg/actuation HFA aerosol inhaler 2 puff inhalation Q4H PRN (Reason: shortness of breath or wheezing) Qty: 8.5 RF: 6 pregabalin 75 mg capsule 75 mg PO BID PRN (Reason: Pain) RF: 0 atorvastatin 80 mg tablet 80 mg PO DAILY RF: 0 icosapent ethyl 1 gram capsule 2 g PO BID RF: 0 tramadol 50 mg tablet 50 - 100 mg PO TID PRN (Reason: Pain) RF: 0 allopurinol 100 MG tablet 100 mg PO DAILY RF: 0 ftlfnijx-ddu-IW-lycopen-lutein 1 EACH tablet 1 tab PO DAILY RF: 0 bupropion HCl (smoking deter) 150 mg tablet extended release 12 hr 150 mg PO BID RF: 0 citalopram 10 mg tablet 10 mg PO DAILY RF: 0 sotalol 80 mg tablet 80 mg PO BID RF: 0 clopidogrel 75 mg tablet 75 mg PO DAILY RF: 0 omeprazole 20 mg capsule,delayed release(DR/EC) 20 mg PO DAILY RF: 0 Trelegy Ellipta 200-62.5-25 mcg blister with device 1 inh inhalation DAILY RF: 0 metoprolol succinate 25 mg tablet extended release 24 hr 12.5 mg PO DAILY Qty: 0 RF: 0 Entresto 97-103 mg tablet 1 tab PO DAILY Qty: 0 RF: 0 baclofen 10 mg tablet 10 mg PO TID PRN (Reason: Pain) Qty: 0 RF: 0 Changed furosemide [Lasix] 40 mg tablet 20 mg PO DAILY PRN (Reason: leg swelling) Qty: 0 RF: 0 Eliquis 5 mg tablet 2.5 mg PO BID Qty: 0 RF: 0 Discontinued aspirin 81 mg tablet,delayed release (DR/EC) 81 mg PO DAILY RF: 0 spironolactone 25 mg tablet 12.5 mg PO DAILY RF: 0 Referrals / Follow Up: Jose E Owusu MD [STAFF PHYSICIAN] - Within 1 Month (for HF, paroxysmal A. fib, coronary artery disease.) Fredrick Grimaldo DO [STAFF PHYSICIAN] - Within 2 Weeks (FOR ANEMAI) Jb Melendez Chi, MD [Primary Care Provider] - Within 2 Weeks Disposition Disposition (needs filled in before D/C Order can be placed): Home Health Service
--- NOTE | 2021-06-18 10:36 | DS.PCM_ITS ---
Providers Date of Admission: 06/16/21 Date of Discharge: 06/18/21 Primary Care Physician: Dr. Jb Melendez MD Reason For Visit: fall / mathieu Diagnosis Discharge Diagnosis (1) Acute kidney injury: Status: Acute Code(s): N17.9 - Acute kidney failure, unspecified (2) Acute hyperkalemia: Status: Acute Code(s): E87.5 - Hyperkalemia (3) Multiple falls: Status: Acute Code(s): R29.6 - Repeated falls (4) Closed head injury: Status: Acute Code(s): S09.90XA - Unspecified injury of head, initial encounter (5) Laceration of scalp: Status: Acute Code(s): S01.01XA - Laceration without foreign body of scalp, initial encounter (6) Anemia: Status: Acute Code(s): D64.9 - Anemia, unspecified (7) Bradycardia: Status: Acute Code(s): R00.1 - Bradycardia, unspecified Medications at Discharge Home Medications allopurinol 100 mg PO DAILY 07/17/20 omwjqupx-zwu-CT-lycopen-lutein 1 tab PO DAILY 07/17/20 atorvastatin 80 mg tablet 80 mg PO DAILY tab 09/17/20 bupropion HCl (smoking deter) 150 mg tablet,12 hr sustained-release(smoking deterrent) 150 mg PO BID tab 09/17/20 icosapent ethyl 1 gram capsule 2 g PO BID cap 09/17/20 pregabalin 75 mg capsule 75 mg PO BID PRN cap 09/17/20 tramadol 50 mg tablet 50 - 100 mg PO TID PRN tab 09/17/20 albuterol sulfate 90 mcg/actuation aerosol inhaler 2 puff INHALATION Q4H PRN #8.5 g 12/22/20 Trelegy Ellipta 1 inh INHALATION DAILY 06/16/21 citalopram 10 mg PO DAILY 06/16/21 clopidogrel 75 mg PO DAILY 06/16/21 omeprazole 20 mg PO DAILY 06/16/21 sotalol 80 mg PO BID 06/16/21 Eliquis 2.5 mg PO BID #0 tab 06/18/21 Entresto 1 tab PO DAILY #0 tab 06/18/21 baclofen 10 mg PO TID PRN #0 tab 06/18/21 furosemide [Lasix] 20 mg PO DAILY PRN #0 tab 06/18/21 guaifenesin [Mucus Relief ER] 1,200 mg PO BID #14 tab 06/18/21 metoprolol succinate 12.5 mg PO DAILY #0 tab 06/18/21 sennosides-docusate sodium [Stool Softener-Stimulant Laxat] 2 tab PO BID PRN PRN #0 tab 06/18/21 Hospital Course Summary of Care Provided Hospital Course: Patient is 70-year-old gentleman who is admitted after a fall seems more mechanical. Patient was admitted in PCU. No near syncope or syncope. On cafeteria monitor sinus rhythm. 1. MATHIEU most likely prerenal from Lasix, Entresto and Aldactone. -Baseline serum creatinine is 1.1-1.2. Improved from admitting 2.262 1.44. Lasix, Entresto, Aldactone on hold. IV fluid 1 L. Monitor intake and output. Renal ultrasound shows mild atrophy otherwise no hydronephrosis. UA is benign with no hematuria. Nitrite and LE negative. Cardiac discharge medications discussed with die attaching machine tender Dr. Owusu. Aldactone discontinued due to hyperkalemia, was admitted with 6.7. Most recent 4.5. Lasix dose decreased to 20 mg as needed for leg swelling or shortness of breath. Entresto continued with holding parameters for hypotension. CK normal.Serum phosphorus level normal. Hyperkalemia: Resolved. Hold above medications. Paroxysmal A. fib with bradycardia, bradycardia resolved heart rate around 68/min. Continue sotalol. Patient also had chest pain with shortness of breath. Twelve-lead EKG done. Low voltage QRS complexes. Normal sinus rhythm 70 bpm. -We will continue sotalol at his current dose given his history of atrial fibrillation. Metoprolol low-dose resumed with holding parameters. I think patient was bradycardic from MATHIEU and hyperkalemia. Anemia -Hemoglobin has dropped about 3 g since his most recent measurement. Hemoglobin 8.8, platelet count 280,000. Patient not on anticoagulation. -Guaiac was negative H&H remained stable at 8.8 g%. Although his baseline is around 12 g%. Eliquis dose decreased to 2.5 mg twice daily. Aspirin discontinued. Plavix continued. Follow-up with Dr. Grimaldo in 2 weeks for possible EGD. Close head injury with laceration -Sutured in the emergency department. No significant hematoma. -CT without any significant acute abnormalities Falls -Patient denies adamantly syncopal episodes -Monitor on telemetry -PT/OT evaluation done and patient can walk on walker with home physical therapy. Asthma/COPD/overlap -Continue home aerosols CAD status post CABG/hyperlipidemia/hypertension/history of V. tach -Continue sotalol -Hold medications as noted above next-continue Mobic as -Discontinue aspirin -Would recommend the patient not be on triple therapy as this increases his risk of GI bleeding -Would recommend discharge on Eliquis (dose dependent on renal function) and Plavix -Continue statin GERD -Continue omeprazole Gout -Continue allopurinol Neuropathy -Hold Lyrica given renal function -Okay to restart once renal function improves DVT prophylaxis -SCDs -Reevaluate renal function and if improved would restart Eliquis CODE STATUS -Full code verified on admission Discharge medication reconciliation done. Discharge follow-up instructions com pleted. Discharge process discussed with the patient and all questions were answered to patient's satisfaction. Patient refusing for going to SNF and wants to go home. Discussed with PT. Home with home health care. Discharge cardiac and anticoagulant meds reconciliation with discussion with die attaching machine tender. Early follow-up with die attaching machine tender. Total time spent, exact 35 minutes on discharge meds reconciliation, examination, coordination of care with nurses and ancillary staff, review of imaging and blood test and discussion with the patient on follow-up instructions Physical Exam Narrative General: Alert, Oriented x3, Cooperative HEENT: Lacerated status post suture on forehead. PERRLA, EOMI, Normocephalic Oral: No Gingival or Mucosal Lesions/ Ulcerations Neck: Supple, No JVD, Negative Carotid Bruits Lungs: Air entry diminished in bilateral lung bases. No crepitation/rhonchi Cardiovascular: Sinus rhythm at 68 bpm., Normal S1, Normal S2, No murmurs Abdomen: Bowel Sounds Present, Soft, Non Tender, Non-Distended : No renal angle tenderness. No suprapubic tenderness. Extremities: No edema, Capillary Refill Less than 3 Seconds Skin: Healing bruises over right knee. Bruise over left subclavicular chest. Sutured head laceration as mentioned above Musculoskeletal: No Tenderness to Palpation of Joints or Extremities Neurological: Cranial nerves II-XII grossly intact, DTR 2+/4 and Symmetrical Psych/Mental Status: Flat affect. Weight / BMI Weight Weight: 155 lb 13.869 oz Body Mass Index (BMI) 29.4 ABG / Lab / Microbiology Data Result Diagrams: 06/18/21 05:32 06/18/21 05:32 Laboratory: Laboratory Results - last 24 hr 06/17/21 16:55: Troponin I High Sens 9 06/17/21 16:55: Total Creatine Kinase 103 06/18/21 03:43: Urine Color Yellow, Urine Clarity Clear, Urine pH 6.5, Ur Specific [place] 1.015, Urine Protein Negative, Urine Glucose (UA) Normal, Urine Ketones Negative, Urine Occult Blood Negative, Urine Nitrite Negative, Urine Bilirubin Negative, Urine Urobilinogen Normal, Ur Leukocyte Esterase Negative, Urine RBC 0 SEEN, Urine WBC 0 SEEN, Ur Squamous Epith Cells 0 SEEN, Urine Bacteria 0 SEEN, Urine Mucus 0 SEEN 06/18/21 05:32: WBC 8.0, RBC 3.09 L, Hgb 8.8 L, Hct 28.5 L, MCV 92.2, MCH 28.5, MCHC 30.9 L, RDW Std Deviation 55.0 H, RDW Coeff of Sujata 16.4 H, Plt Count 263, MPV 11.3, Immature Gran % (Auto) 0.400, Neut % (Auto) 72.9 H, Lymph % (Auto) 16.3 L, [place] % (Auto) 10.3 H, Eos % (Auto) 0.0, Baso % (Auto) 0.1, Absolute Neuts (auto) 5.8, Absolute Lymphs (auto) 1.30, Nucleated RBC % 0 06/18/21 05:32: Sodium 139, Potassium 4.5, Chloride 108 H, Carbon Dioxide 27.0, Anion Gap 4 L, BUN 27 H, Creatinine 1.02, Estim Creat Clear Calc 48.43, Est GFR (MDRD) Af Amer 92, Est GFR (MDRD) Non-Af 76, BUN/Creatinine Ratio 26.5 H, Glucose 97, Calcium 9.5 Microbiology: Microbiology 06/16/21 15:45 Stool Stool Occult Blood (OLIVE) - Final Meaningful Use Info Meaningful Use Diagnoses (Choose all that apply): None applicable Discharge Plan Admission Admit Date/Time: 06/16/21 15:54 Primary Reason for Your Visit: Acute kidney injury, paroxysmal A. fib with bradycardia Attending Provider: Luis Moon Primary Care Provider: bJ Melendez Chi Instructions Additional Instructions / Restrictions: Spironolactone was discontinued because of hyperkalemia and MATHIEU. Lasix dose reduced. Patient on minimal dose of metoprolol. Discussed with Dr. Owusu and requested early follow-up. Discharge Orders/Prescriptions Prescriptions: New sennosides-docusate sodium [Stool Softener-Stimulant Laxat] 8.6-50 mg Tablet 2 tab PO BID PRN PRN (Reason: Constipation) Qty: 0 RF: 0 Mucus Relief ER 1,200 mg Tablet Extended Release 12hr 1,200 mg PO BID Qty: 14 RF: 0 Continued albuterol sulfate 90 mcg/actuation HFA aerosol inhaler 2 puff inhalation Q4H PRN (Reason: shortness of breath or wheezing) Qty: 8.5 RF: 6 pregabalin 75 mg capsule 75 mg PO BID PRN (Reason: Pain) RF: 0 atorvastatin 80 mg tablet 80 mg PO DAILY RF: 0 icosapent ethyl 1 gram capsule 2 g PO BID RF: 0 tramadol 50 mg tablet 50 - 100 mg PO TID PRN (Reason: Pain) RF: 0 allopurinol 100 MG tablet 100 mg PO DAILY RF: 0 fxsqcdrb-few-HL-lycopen-lutein 1 EACH tablet 1 tab PO DAILY RF: 0 bupropion HCl (smoking deter) 150 mg tablet extended release 12 hr 150 mg PO BID RF: 0 citalopram 10 mg tablet 10 mg PO DAILY RF: 0 sotalol 80 mg tablet 80 mg PO BID RF: 0 clopidogrel 75 mg tablet 75 mg PO DAILY RF: 0 omeprazole 20 mg capsule,delayed release(DR/EC) 20 mg PO DAILY RF: 0 Trelegy Ellipta 200-62.5-25 mcg blister with device 1 inh inhalation DAILY RF: 0 metoprolol succinate 25 mg tablet extended release 24 hr 12.5 mg PO DAILY Qty: 0 RF: 0 Entresto 97-103 mg tablet 1 tab PO DAILY Qty: 0 RF: 0 baclofen 10 mg tablet 10 mg PO TID PRN (Reason: Pain) Qty: 0 RF: 0 Changed furosemide [Lasix] 40 mg tablet 20 mg PO DAILY PRN (Reason: leg swelling) Qty: 0 RF: 0 Eliquis 5 mg tablet 2.5 mg PO BID Qty: 0 RF: 0 Discontinued aspirin 81 mg tablet,delayed release (DR/EC) 81 mg PO DAILY RF: 0 spironolactone 25 mg tablet 12.5 mg PO DAILY RF: 0 Referrals / Follow Up: Jose E Owusu MD [STAFF PHYSICIAN] - Within 1 Month (for HF, paroxysmal A. fib, coronary artery disease.) Fredrick Grimaldo DO [STAFF PHYSICIAN] - Within 2 Weeks (FOR ANEMAI) Jb Melendez Chi, MD [Primary Care Provider] - Within 2 Weeks Disposition Disposition (needs filled in before D/C Order can be placed): Home Health Service Charges/Coding Visit Charges Inpatient E&M: 21949 Disch Hosp
--- NOTE | 2021-06-18 12:18 | CASEMGMT ---
Per Fortino FLANNERY, pt qualifies for 3L w/ exertion at discharge and new order to be faxed to [facility]. Per Fortino, pt also would like to take [facility] van home at discharge. Pt will need portable tank for discharge and call to Mumtaz at [facility] to update on pt discharge, need for portable tank, and new order-voices understanding. Per Mumtaz, he has a box truck driver that will be passing this area in about an hour and they can drop off portable tank for pt discharge. Fortino FLANNERY updated and Azar, clinical secretary, to set up hospital van for discharge. Per Abigail at [facility], they can accept pt and do SOC 06/19/21. [facility] info placed on pt discharge instructions. Pt updated on all, voices understanding and no further questions/concerns/needs. Ethan FLANNERY CM
[2021-06-18] MEDS: oxyCODONE 5 MG Tablet PO (13:05)
[2021-06-18 14:33] LABS: MG Sendout 2.4 mg/dL (1.6-2.3)
== END 2021-06-18 15:33 | disposition home health service (06) | DRG 684 ==
LOC: ED 15:50 → PCU 06-17 07:22
PROVIDERS: Admitting Provider Internal Medicine; Emergency Provider Emergency Medicine; PCP Family Medicine Geriatric Medicine; Visit Provider Internal Medicine
DX: N17.9 Acute kidney failure, unspecified (principal); J44.9 Chronic obstructive pulmonary disease, unspecified; I50.42 Chronic combined systolic (congestive) and diastolic (congestive) heart failure; I13.0 Hypertensive heart and chronic kidney disease with heart failure and stage 1 through stage 4 chronic kidney disease, or unspecified chronic kidney disease; I48.0 Paroxysmal atrial fibrillation; N18.9 Chronic kidney disease, unspecified; E78.5 Hyperlipidemia, unspecified; D64.9 Anemia, unspecified; S01.01XA Laceration without foreign body of scalp, initial encounter; E87.5 Hyperkalemia; G62.9 Polyneuropathy, unspecified; R00.1 Bradycardia, unspecified; M10.9 Gout, unspecified; W07.XXXA Fall from chair, initial encounter; I25.5 Ischemic cardiomyopathy; I25.10 Atherosclerotic heart disease of native coronary artery without angina pectoris; K21.9 Gastro-esophageal reflux disease without esophagitis; N40.0 Benign prostatic hyperplasia without lower urinary tract symptoms; I65.22 Occlusion and stenosis of left carotid artery; J45.50 Severe persistent asthma, uncomplicated; I44.7 Left bundle-branch block, unspecified; Z79.82 Long term (current) use of aspirin; Z87.891 Personal history of nicotine dependence; Z79.02 Long term (current) use of antithrombotics/antiplatelets; Z79.01 Long term (current) use of anticoagulants; Z86.73 Personal history of transient ischemic attack (TIA), and cerebral infarction without residual deficits; Z95.1 Presence of aortocoronary bypass graft; Z91.81 History of falling; Y93.9 Activity, unspecified; Y92.9 Unspecified place or not applicable; Z79.899 Other long term (current) drug therapy
CPT/HCPCS: 12001; 36415; 70450; 76770; 80048; 80053; 81001; 82274; 82550; 83735; 84100; 84484; 85025; 87086; 93005; 94640; 96361; 96374; 96376; 97162; 97166; 97530; 99218; 99285; J7050; J7120; A4216; G0378

== ENCOUNTER 2021-06-24 12:58 | Outpatient (CLI) | payer MEDICARE, MEDICAID, SELFPAY ==
[2021-06-24 15:39] LABS: Absolute Lymphocyte Count 1.42 X10^3/uL (0.83-4.51); Absolute Neutrophil Count 5.8 X10^3/uL (2.0-7.7); Basophil# 0.02 X10^3/uL; Basophil% 0.2 % (0-1); Hematocrit 34.1 % (40-54); Hemoglobin 10.7 g/dL (13.0-16.5); Lymphocyte # 1.42 X10^3/ul (0.83-4.51); Mean Corp Hgb Conc 31.4 g/dL (32-36); Mean Corpuscular Hgb 28.9 pg (27.0-32.0); Mean Corpuscular Volume 92.2 fL (80-94); Mean Platelet Vol. 10.9 fl (6.2-12.0); Monocyte# 1.01 X10^3/uL; Monocyte% 12.1 % (0-10); NRBC Flagged by Analyzer 0 % (0-5); Neutrophil # 5.84 X10^3/uL (2.7-7.7); Neutrophil % 70.2 % (47-70); Platelet Count 403 K/mm3 (150-450); RBC Distribution Width CV 15.7 % (11.6-14.6); RBC Distribution Width SD 53.2 fl (35.1-43.9); White Blood Count 8.3 K/mm3 (4.4-11.0)
[2021-06-24 15:52] LABS: Anion Gap 4 (5-15); BUN 34 mg/dL (7-18); BUN/Creat Ratio 27.4 RATIO (10-20); Calcium,Total 9.3 mg/dL (8.5-10.1); Chloride 106 mmol/L (98-107); Creatinine, Serum 1.24 mg/dL (0.70-1.30); EST Glomerular Filtration Rate 61 mL/min (>60); Est Glom Filt Rate - Afr Amer 74 mL/min (>60); Glucose 87 mg/dL (74-106); Potassium 5.3 mmol/L (3.5-5.1); Sodium Level 137 mmol/L (136-145)
== END 2021-06-24 23:59 | disposition home or self-care (01) ==
LOC: POLAB3 13:00
PROVIDERS: PCP Family Medicine Geriatric Medicine; Visit Provider Family Medicine Geriatric Medicine
DX: D64.9 Anemia, unspecified (principal); E87.5 Hyperkalemia
CPT/HCPCS: 36415; 80048; 85025

== ENCOUNTER 2021-07-01 15:48 | Outpatient (CLI) | payer MEDICARE, MEDICAID, SELFPAY ==
[2021-07-01 18:51] LABS: Vitamin B12 927 pg/mL (211-911)
[2021-07-12 11:08] LABS: Free Kappa Light Chains 51.6 mg/L (3.3-19.4)
[2021-07-12 12:05] LABS: Vitamin B1, Thiamine 164.9 nmol/L (66.5-200.0)
== END 2021-07-01 23:59 | disposition home or self-care (01) ==
LOC: MTLAB 15:50
PROVIDERS: PCP Family Medicine Geriatric Medicine; Referring Provider Psychiatry & Neurology Neurology; Visit Provider Psychiatry & Neurology Neurology
DX: G62.9 Polyneuropathy, unspecified (principal)
CPT/HCPCS: 36415; 82607; 82746; 83883; 84425

== ENCOUNTER 2021-07-09 09:47 | Outpatient (CLI) | payer MEDICARE, MEDICAID, SELFPAY ==
[2021-07-09 09:50] VITALS: BP 111/48; PULSE 62; RESP 16; TEMP 35.9; O2SAT 96; BMI 29.5
[2021-07-09] MEDS: Benralizumab 30 MG/ML Syringe SC (09:56)
== END 2021-07-09 23:59 | disposition home or self-care (01) ==
LOC: MEDOUTP 09:48
PROVIDERS: PCP Family Medicine Geriatric Medicine; Referring Provider Internal Medicine Critical Care Medicine; Visit Provider Internal Medicine Critical Care Medicine
DX: J45.50 Severe persistent asthma, uncomplicated (principal)
CPT/HCPCS: 96372; J0517

== ENCOUNTER 2021-07-21 14:53 | Inpatient (IN) | payer MEDICARE, MEDICAID, SELFPAY ==
[2021-07-21 14:54] VITALS: BP 111/74; PULSE 80; RESP 15; TEMP 36.6; O2SAT 98; BMI 27.1
--- NOTE | 2021-07-21 15:12 | CT_ITS ---
STUDY: CT BRAIN WITHOUT CONTRAST REASON FOR EXAM: Male, 70 years old. Trauma RADIATION DOSAGE (If Supplied By Facility): CTDIvol = ( 44.99 ) mGy, DLP = ( 812.98 ) mGycm TECHNIQUE: Transaxial CT imaging of the brain was performed without administration of intravenous contrast material. Individualized dose optimization techniques were used for this CT. COMPARISON: 06/16/2021 FINDINGS: Normal soft tissue structures. Normal calvarium. Normal size ventricles and extra-axial spaces for the patient''s age. Old right parietal infarct. Relatively stable white matter microangiopathic ischemic changes of the cerebral hemispheres. Normal basal ganglia and thalami. Normal brainstem. Normal cerebellum. There is no intracranial hemorrhage. There are no findings of an acute ischemic infarction. Normal visualized paranasal sinuses. CT/Brain/Head without Contrast IMPRESSION: Relatively stable age-related chronic changes of the brain. Electronically Signed: Miguelangel Carrillo DO at 16:48 EDT ,
--- NOTE | 2021-07-21 15:12 | EKG12_ITS ---
Test Reason : Blood Pressure : / mmHG Vent. Rate : 080 BPM Atrial Rate : 081 BPM P-R Int : 000 ms QRS Dur : 088 ms QT Int : 390 ms P-R-T Axes : 000 -20 096 degrees QTc Int : 449 ms sinus rhythm Low voltage QRS ST & T wave abnormality, consider inferior ischemia Abnormal ECG Confirmed by CHRISTIANO VENEGAS, GIO ([id number]), book or script editor SHELBI BUCIO ([id number]) on 07/23/2021 7:25:25 AM Referred By: Confirmed By:MADELAINE ALVARADO MD
--- NOTE | 2021-07-21 15:13 | CT_ITS ---
STUDY: CT CERVICAL SPINE WITHOUT CONTRAST REASON FOR EXAM: Male, 70 years old. Trauma RADIATION DOSAGE (If Supplied By Facility): CTDIvol = ( 16.63 ) mGy, DLP = ( 378.91 ) mGycm TECHNIQUE: High resolution transaxial imaging was performed without contrast material. Sagittal and coronal images were reconstructed. Individualized dose optimization techniques were used for this CT. COMPARISON: None FINDINGS: Normal craniovertebral junction. Normal anterior atlantoaxial articulation. Normal odontoid process. Normal cervical lordosis. Normal vertebral bodies and posterior osseous elements. C2-3: Mild spurring at the endplates. Normal disc height and morphology. Normal central canal. Facet hypertrophy and uncovertebral spurring narrowing the left intervertebral neural foramen. C3-4: Spurring at the endplates. Narrowed disc height and morphology. Normal central canal. Facet hypertrophy and uncovertebral spurring narrowing the intervertebral neuroforamina. C4-5: Mild spurring at the endplates. Normal disc height and morphology. Normal central canal. Facet hypertrophy and uncovertebral spurring narrowing the intervertebral neuroforamina. C5-6: Partial fusion of C5 and C6. Normal central canal and intervertebral neuroforamina. C6-7: Normal endplates. Normal disc height and morphology. Normal central canal. Facet hypertrophy slightly narrowing the intervertebral neuroforamina. C7-T1: Normal endplates. Normal disc height and morphology. Normal central canal and intervertebral neuroforamina. Normal visualized soft tissue structures. CT/Spine Cervical without Contras IMPRESSION: Moderate degenerative changes of the cervical spine. Electronically Signed: Miguelangel Carrillo DO at 17:06 EDT Reading Location ID and State: [facility] / [place] Tel [phone], Service support ,
--- NOTE | 2021-07-21 15:14 | ED.VIS.FALL ---
HPI HPI - Fall History of Present Illness Chief Complaint: Fall Informant: patient Narrative Narrative: Patient presents after a fall he had yesterday. He states nothing really hurts. He does fall frequently. He states he falls at least couple times a week. He does not know what makes him fall. He does not pass out. He does not feel lightheaded. He does not have chest pain or palpitations. He states he does have a history of atrial fibrillation and is on Eliquis. He lives at home with a another woman that is about his age. He denies being ill recently. He is on oxygen for COPD. He states he came in today to get checked out. He was stubborn and did not come in yesterday. He states he does not want to be admitted. He just wants to make sure that there is nothing major wrong. Nothing really makes symptoms of falls better or worse. And nothing causes him symptoms now because he does not hurt after the fall. He did hit his head though. He also has some skin tears on his left arm. [facility] Medical History (HFpEF) heart failure with preserved ejection fraction ACC/AHA stage B congestive heart failure due to ischemic cardiomyopathy Anemia Asthma-COPD overlap syndrome Atherosclerosis of coronary artery of [place] heart without angina pectoris Atrial fibrillation with rapid ventricular response (03/11/21) Benign prostatic hypertrophy Chronic respiratory failure Closed head injury COPD (chronic obstructive pulmonary disease) CVA (cerebral vascular accident) (05/29/18) DDD (degenerative disc disease) Essential (primary) hypertension HFrEF (heart failure with reduced ejection fraction) Hyperlipidemia Ischemic cardiomyopathy Laceration of scalp Left carotid artery stenosis Multiple falls Myoclonic jerking Nicotine dependence in remission Nicotine dependence, cigarettes, uncomplicated Nocturnal hypoxemia Osteoarthritis Paroxysmal atrial fibrillation (2008) Peripheral vascular occlusive disease Severe persistent asthma Smoking greater than 40 pack years Stage 3 chronic kidney disease Home Medications allopurinol 100 mg PO DAILY 07/17/20 [History Last Taken 06/16/21] igjtrmad-sgd-SJ-lycopen-lutein 1 tab PO DAILY 07/17/20 [History Last Taken 06/16/21] atorvastatin 80 mg tablet 80 mg PO DAILY tab 09/17/20 [History Last Taken 06/15/21] bupropion HCl (smoking deter) 150 mg tablet,12 hr sustained-release(smoking deterrent) 150 mg PO BID tab 09/17/20 [History Last Taken 06/16/21] icosapent ethyl 1 gram capsule 2 g PO BID cap 09/17/20 [History Last Taken 06/16/21] pregabalin 75 mg capsule 75 mg PO BID PRN cap 09/17/20 [History Last Taken 06/16/21] tramadol 50 mg tablet 50 - 100 mg PO TID PRN tab 09/17/20 [History Last Taken 06/16/21] albuterol sulfate 90 mcg/actuation aerosol inhaler 2 puff INHALATION Q4H PRN #8.5 g 12/22/20 [Rx Last Taken 01/15/21] citalopram 10 mg PO DAILY 06/16/21 [History Last Taken 06/16/21] clopidogrel 75 mg PO DAILY 06/16/21 [History Last Taken 06/16/21] omeprazole 20 mg PO DAILY 06/16/21 [History Last Taken 06/16/21] Eliquis 2.5 mg PO BID #0 tab 06/18/21 [Rx Last Taken 06/16/21] Entresto 1 tab PO DAILY #0 tab 06/18/21 [Rx Last Taken 06/16/21] baclofen 10 mg PO TID PRN #0 tab 06/18/21 [Rx Last Taken 06/16/21] guaifenesin [Mucus Relief ER] 1,200 mg PO BID #14 tab 06/18/21 [Rx Last Taken Unknown] metoprolol succinate 12.5 mg PO DAILY #0 tab 06/18/21 [Rx Last Taken 06/16/21] sennosides-docusate sodium [Stool Softener-Stimulant Laxat] 2 tab PO BID PRN PRN #0 tab 06/18/21 [Rx Last Taken Unknown] amoxicillin 875 mg-potassium clavulanate 125 mg tablet 1 tab PO BID #20 tab 07/01/21 [Rx Last Taken Unknown] fluticasone fur. 200 mcg-umeclid 62.5 mcg-vilant 25 mcg inhalat.powder 1 inh INHALATION DAILY #60 ea 07/01/21 [Rx Last Taken Unknown] galantamine 16 mg 24 hr capsule,extended release 16 mg PO QAM #30 cap 07/01/21 [Rx Last Taken Unknown] galantamine 8 mg 24 hr capsule,extended release 8 mg PO QAM #30 cap 07/01/21 [Rx Last Taken Unknown] prednisone 20 mg tablet 60 mg PO QDAY #15 tab 07/01/21 [Rx Last Taken Unknown] furosemide 40 mg tablet 40 mg PO DAILY PRN #1 tab 07/08/21 [Rx Last Taken Unknown] sotalol 80 mg tablet 80 mg PO BID #60 tab 07/19/21 [Rx Last Taken Unknown] Allergy/AdvReac Type Severity Reaction Status Date / Time No Known Allergies Allergy Verified 07/08/21 13:20 Family History Father Colon cancer Surgical History H/O coronary artery bypass surgery (01/17/14) History of carpal tunnel release History of electrophysiologic study (03/15/21) History of left heart catheterization (03/12/21) History of radiofrequency ablation procedure for cardiac arrhythmia (01/17/14) Social History household members: other housing: apartment current occupational status: employed pets and animals: No Smoking Status: Former smoker quit date: 05/22/20 Tobacco: How many years used: 52 Electronic Cigarette Use: not used second hand exposure: Yes alcohol intake: never substance use type: does not use ROS ROS ED Constitutional Constitutional ED: Denies chills or fever(s) Eyes Eyes: Denies blurry vision or diplopia ENT ENT ED: Denies rhinorrhea or sore throat Cardiovascular Cardiovascular: Denies chest pain, palpitations or racing heartbeat Respiratory/Chest Respiratory/Chest: Reports cough and other Details: Patient states he always has a cough but is not worse. When I asked how his breathing is he says crappy like always. He states he is at his baseline. ; Denies dyspnea Gastrointestinal Gastrointestinal: Denies abdominal pain, diarrhea, nausea or vomiting Genitourinary Genitourinary ED: Denies dysuria or hematuria Musculoskeletal Musculoskeletal: Denies back pain or neck pain Integumentary Reports Abrasions and other Details: Skin tears primarily on left arm Neurologic Neurologic: Reports other Details: He did hit his head but has no pain ; Denies headache(s) Endocrine Endocrinology: Denies polydipsia or polyuria Hematologic/Lymphatic Hematologic/Lymphatic: Reports easy bleeding and easy bruising Allergic/Immunologic Allergic/Immunologic ED: Denies urticaria EXAM Physical Exam Const Vital Signs: 07/21/21 14:54 07/21/21 15:02 07/21/21 16:09 Temperature 97.9 F Temperature Source Temporal Pulse Rate 80 79 Respiratory Rate 15 17 Respiratory Effort Normal Non-Labored Blood Pressure 111/74 Blood Pressure Mean 86 Pulse Ox 98 Oxygen Delivery Method Nasal Cannula Nasal Cannula Oxygen Flow Rate (L/min) 3 07/21/21 17:18 Temperature Temperature Source Pulse Rate 82 Respiratory Rate 17 Respiratory Effort Blood Pressure 111/90 H Blood Pressure Mean 97 Pulse Ox 98 Oxygen Delivery Method Nasal Cannula Oxygen Flow Rate (L/min) 3 Positive well nourished and well developed Constitutional Narrative: Patient is wide-awake and appropriate. He is a reasonable informant for his history. He has dementia listed but does not seem to have significant features of this. General Appearance ED: well developed and NAD HEENT HEENT Narrative: There is contusion abrasion to the left upper forehead. No laceration. No step-off. Eyes EOMs intact bilaterally General Eye ED: Negative for pale conjunctiva Neck supple Neck Narrative: No tenderness. He denies any pain. General: Negative for tenderness Chest Wall Chest Narrative: He does have some slight contusion over left side of his chest. It is not tender. There is no subcu air. No pain with a deep breath. No pain with palpation at all. No pain with AP or lateral compression. He also has well-healed median sternotomy. Resp normal respiratory effort and no retractions Resp Narrative: Patient has just a hint of expiratory wheeze. He states he feels at his baseline though. Auscultation: wheezes; Negative for rales or rhonchi Cardio regular rate; Negative for regular rhythm GI non-tender Palpation: soft Back/Spine no CVA tenderness Extremity Extremity Narrative: Patient has some skin tears to the mostly the left elbow and left upper arm area. He has some mild deformity of the left wrist but he states this is fused and has been that way for years. He cannot move it but that is because it is fused. He does not have pain in that area. I get no spinal pain in any area. There is no pain with compression of his pelvis. No pain with motion of hips knees ankles. Neuro oriented x3 Sensorium / Orientation: alert Psych mental status grossly normal Skin Skin Narrative: Multiple skin abrasions skin tears MDM MDM MDM Narrative Medical decision making narrative: Patient's blood work showed a high white count. At this point we have added urine and chest x-ray. These are pending. But he has no symptoms of infection. I also noticed that his hemoglobin is up to 13.1. Later, we get back his electrolytes that show he has significant dehydration with an acute kidney injury. He has a creatinine of 3.91 when his baseline is approximately 1.2. This may be causing some of his hemoconcentration. I talked with the patient about this. It sounds like he and his significant other are having trouble getting food and drink into the house. There may be some social issues that need assistance. But this patient with frequent falls being on Eliquis and acute kidney injury is not appropriate for going home. I did discuss the case with the hospitalist. Lab Data Attestation: I reviewed the patient's lab results. Labs: Laboratory Results - last 24 hr 07/21/21 07/21/21 16:09 16:09 WBC 16.3 H RBC 4.56 L Hgb 13.1 Hct 39.1 L MCV 85.7 MCH 28.7 MCHC 33.5 RDW Std Deviation 47.3 H RDW Coeff of Sujata 14.9 H Plt Count 373 MPV 11.1 Immature Gran % (Auto) 0.600 Neut % (Auto) 85.0 H Lymph % (Auto) 5.1 L [place] % (Auto) 9.2 Eos % (Auto) 0.0 Baso % (Auto) 0.1 Absolute Neuts (auto) 13.9 H Absolute Lymphs (auto) 0.83 Nucleated RBC % 0 Sodium 135 L Potassium 4.5 Chloride 100 Carbon Dioxide 25.0 Anion Gap 10 BUN 63 H Creatinine 3.91 H Estim Creat Clear Calc 13.19 Est GFR (MDRD) Af Amer 20 L Est GFR (MDRD) Non-Af 16 L BUN/Creatinine Ratio 16.1 Glucose 124 H Calcium 9.5 Radiography Diagnostic Testing: Clinical Impression(s) from Imaging Studies Brain CT 07/21/21 15:12 IMPRESSION: Relatively stable age-related chronic changes of the brain. Electronically Signed: Miguelangel Carrillo DO at 16:48 EDT , Cervical Spine CT 07/21/21 15:13 IMPRESSION: Moderate degenerative changes of the cervical spine. Electronically Signed: Miguelangel Carrillo, DO at 17:06 EDT , EKG Initial EKG: Comments: EKG done due to history of atrial fibrillation read by me shows regular and what appears to be junctional rhythm. Overall rate of 80. Diffuse nonspecific ST and T wave changes. No sign of infarct. QRS duration and QTc is normal. Discharge Plan Triage Chief Complaint: Fall ED Provider: Elliot Mcconnell Dx/Rx/DC Orders Clinical Impression: Acute kidney injury, Frequent falls, Multiple skin tears, Acute dehydration Prescriptions: No Action albuterol sulfate 90 mcg/actuation HFA aerosol inhaler 2 puff inhalation Q4H PRN (Reason: shortness of breath or wheezing) Qty: 8.5 RF: 6 pregabalin 75 mg capsule 75 mg PO BID PRN (Reason: Pain) RF: 0 atorvastatin 80 mg tablet 80 mg PO DAILY RF: 0 icosapent ethyl 1 gram capsule 2 g PO BID RF: 0 Trelegy Ellipta 200-62.5-25 mcg blister with device 1 inh inhalation DAILY Qty: 60 RF: 11 prednisone 20 mg tablet 60 mg PO QDAY Qty: 15 RF: 0 amoxicillin-pot clavulanate 875-125 mg tablet 1 tab PO BID Qty: 20 RF: 0 galantamine 8 mg capsule,ext rel. pellets 24 hr 8 mg PO QAM Qty: 30 RF: 0 galantamine 16 mg capsule,ext rel. pellets 24 hr 16 mg PO QAM Qty: 30 RF: 3 furosemide [Lasix] 40 mg tablet 40 mg PO DAILY PRN (Reason: leg swelling) Qty: 1 RF: 0 tramadol 50 mg tablet 50 - 100 mg PO TID PRN (Reason: Pain) RF: 0 allopurinol 100 MG tablet 100 mg PO DAILY RF: 0 hecytkqf-rbv-WH-lycopen-lutein 1 EACH tablet 1 tab PO DAILY RF: 0 bupropion HCl (smoking deter) 150 mg tablet extended release 12 hr 150 mg PO BID RF: 0 citalopram 10 mg tablet 10 mg PO DAILY RF: 0 clopidogrel 75 mg tablet 75 mg PO DAILY RF: 0 omeprazole 20 mg capsule,delayed release(DR/EC) 20 mg PO DAILY RF: 0 sennosides-docusate sodium [Stool Softener-Stimulant Laxat] 8.6-50 mg Tablet 2 tab PO BID PRN PRN (Reason: Constipation) Qty: 0 RF: 0 Mucus Relief ER 1,200 mg Tablet Extended Release 12hr 1,200 mg PO BID Qty: 14 RF: 0 metoprolol succinate 25 mg tablet extended release 24 hr 12.5 mg PO DAILY Qty: 0 RF: 0 Eliquis 5 mg tablet 2.5 mg PO BID Qty: 0 RF: 0 Entresto 97-103 mg tablet 1 tab PO DAILY Qty: 0 RF: 0 baclofen 10 mg tablet 10 mg PO TID PRN (Reason: Pain) Qty: 0 RF: 0 sotalol 80 mg tablet 80 mg PO BID Qty: 60 RF: 11 Primary Care Provider: Jb Melendez Chi Referrals: Jb Melendez Chi, MD [Primary Care Provider] - Disposition Disposition: Acute Care Hospital [facility]
[2021-07-21 16:09] VITALS: PULSE 79; RESP 17
[2021-07-21] MEDS: Ipratropium/Albuterol Sulfate 3 ML AMPUL.NEB INHALATION (16:09)
[2021-07-21 16:31] LABS: Absolute Lymphocyte Count 0.83 X10^3/uL (0.83-4.51); Absolute Neutrophil Count 13.9 X10^3/uL (2.0-7.7); Basophil# 0.02 X10^3/uL; Basophil% 0.1 % (0-1); Hematocrit 39.1 % (40-54); Hemoglobin 13.1 g/dL (13.0-16.5); Lymphocyte # 0.83 X10^3/ul (0.83-4.51); Lymphocyte % 5.1 % (19-41); Mean Corp Hgb Conc 33.5 g/dL (32-36); Mean Corpuscular Hgb 28.7 pg (27.0-32.0); Mean Corpuscular Volume 85.7 fL (80-94); Mean Platelet Vol. 11.1 fl (6.2-12.0); Monocyte% 9.2 % (0-10); NRBC Flagged by Analyzer 0 % (0-5); Neutrophil # 13.88 X10^3/uL (2.7-7.7); Platelet Count 373 K/mm3 (150-450); RBC Distribution Width CV 14.9 % (11.6-14.6); RBC Distribution Width SD 47.3 fl (35.1-43.9); Red Blood Count 4.56 M/mm3 (4.6-6.2); White Blood Count 16.3 K/mm3 (4.4-11.0)
--- NOTE | 2021-07-21 16:35 | RAD_ITS ---
STUDY: X-RAY CHEST REASON FOR EXAM: Male, 70 years old. Pneumonia TECHNIQUE: Frontal view COMPARISON: 03/11/2021 FINDINGS: Stable sternotomy wires The lungs are expanded. Bilateral basilar atelectasis. Normal size heart. Normal mediastinum and katelyn. Normal visualized pulmonary arteries. Normal visualized aortic arch and descending thoracic aorta. Degenerative changes of the thoracic spine. Normal visualized ribs, clavicles, and shoulders. There is no demonstrated abnormality of the visualized soft tissue structures of the upper abdomen. RAD/Chest 1 View (Portable) IMPRESSION: Basilar atelectasis. Electronically Signed: Miguelangel Carrillo DO at 17:47 EDT Reading Location ID and State: [facility] / [place] Tel [phone], Service support ,
[2021-07-21 16:37] LABS: Anion Gap 10 (5-15); BUN 63 mg/dL (7-18); BUN/Creat Ratio 16.1 RATIO (10-20); Calcium,Total 9.5 mg/dL (8.5-10.1); Chloride 100 mmol/L (98-107); Creatinine, Serum 3.91 mg/dL (0.70-1.30); EST Glomerular Filtration Rate 16 mL/min (>60); Est Glom Filt Rate - Afr Amer 20 mL/min (>60); Estimated Creatinine Clearance 13.19 ml/min; Glucose 124 mg/dL (74-106); Potassium 4.5 mmol/L (3.5-5.1); Sodium Level 135 mmol/L (136-145)
[2021-07-21 17:18] VITALS: BP 111/90; PULSE 82; RESP 17; O2SAT 98
[2021-07-21 17:24] LABS: Bacteria 0 SEEN /hpf (None Seen); Mucous, Urine 0 SEEN /hpf (<or=2+); Red Blood Cells-Urine 0 SEEN /hpf (0-5); Squamous Epithelial Cells - UA 0 SEEN /hpf (0-5); White Blood Cells 0 SEEN /hpf (0-5)
[2021-07-21 17:31] LABS: Color, Urine Yellow (Yellow); Glucose, Dipstick Normal (Normal); Ketone-Dipstick 5 mg/dl (Negative); Leukocyte Esterase-Dipstick 25 /ul (Negative); Nitrite-Dipstick Negative (Negative); Occult Blood-Urine 25 /ul (Negative); Protein-Dipstick 30 mg/dl (Negative); Urine Clarity Clear (Clear); Urine Urobilinogen Normal (Normal)
[2021-07-21 17:32] VITALS: BP 111/90; PULSE 82; RESP 17; TEMP 36.7; O2SAT 98
[2021-07-21 17:32] LABS: Urine Bilirubin Dipstick 1 mg/dL (Negative)
[2021-07-21 17:33] VITALS: O2SAT 92
--- NOTE | 2021-07-21 17:43 | PCM.HP.STD ---
HPI - General General Date of Admission: 07/21/21 Date of Service: 07/21/21 Chief Complaint: Debility HPI Narrative KAMILLA DICKSON, is a 70 M who presents to the emergency room at [facility] with complaints of generalized weakness and falls at home. He lives with a friend who he provides care for, the patient told me yesterday he was unable to drink water because there was nobody at home to give him any fluids. Patient is on chronic oxygen at 3 L/min via nasal cannula at all times. Work-up in the ER included labs which showed an elevated white blood cell count at 16.3, hemoglobin was 13.1, patient's chemistry profile showed a creatinine of 3.91, BUN of 63, glucose of 124, and sodium of 135. Chest x-ray performed showed no active infiltrate. Urinalysis is pending at the time of this dictation. Patient has wounds over his left arm that appear to be large skin tears, these areas will need to be cleaned and redressed. Wound care will see the patient tomorrow. Patient will be admitted to [place] [id number] for acute kidney injury and generalized debility, it is likely he will need at least short-term placement in a correction facility. [facility] Medical History (HFpEF) heart failure with preserved ejection fraction ACC/AHA stage B congestive heart failure due to ischemic cardiomyopathy Anemia Asthma-COPD overlap syndrome Atherosclerosis of coronary artery of [place] heart without angina pectoris Atrial fibrillation with rapid ventricular response (03/11/21) Benign prostatic hypertrophy Chronic respiratory failure Closed head injury COPD (chronic obstructive pulmonary disease) CVA (cerebral vascular accident) (05/29/18) DDD (degenerative disc disease) Essential (primary) hypertension HFrEF (heart failure with reduced ejection fraction) Hyperlipidemia Ischemic cardiomyopathy Laceration of scalp Left carotid artery stenosis Multiple falls Myoclonic jerking Nicotine dependence in remission Nicotine dependence, cigarettes, uncomplicated Nocturnal hypoxemia Osteoarthritis Paroxysmal atrial fibrillation (2008) Peripheral vascular occlusive disease Severe persistent asthma Smoking greater than 40 pack years Stage 3 chronic kidney disease Home Medications allopurinol 100 mg PO DAILY 07/17/20 [History Last Taken 06/16/21] kqujpepy-kwr-DD-lycopen-lutein 1 tab PO DAILY 07/17/20 [History Last Taken 06/16/21] atorvastatin 80 mg tablet 80 mg PO DAILY tab 09/17/20 [History Last Taken 06/15/21] bupropion HCl (smoking deter) 150 mg tablet,12 hr sustained-release(smoking deterrent) 150 mg PO BID tab 09/17/20 [History Last Taken 06/16/21] icosapent ethyl 1 gram capsule 2 g PO BID cap 09/17/20 [History Last Taken 06/16/21] pregabalin 75 mg capsule 75 mg PO BID PRN cap 09/17/20 [History Last Taken 06/16/21] tramadol 50 mg tablet 50 - 100 mg PO TID PRN tab 09/17/20 [History Last Taken 06/16/21] albuterol sulfate 90 mcg/actuation aerosol inhaler 2 puff INHALATION Q4H PRN #8.5 g 12/22/20 [Rx Last Taken 01/15/21] citalopram 10 mg PO DAILY 06/16/21 [History Last Taken 06/16/21] clopidogrel 75 mg PO DAILY 06/16/21 [History Last Taken 06/16/21] omeprazole 20 mg PO DAILY 06/16/21 [History Last Taken 06/16/21] Eliquis 2.5 mg PO BID #0 tab 06/18/21 [Rx Last Taken 06/16/21] Entresto 1 tab PO DAILY #0 tab 06/18/21 [Rx Last Taken 06/16/21] baclofen 10 mg PO TID PRN #0 tab 06/18/21 [Rx Last Taken 06/16/21] guaifenesin [Mucus Relief ER] 1,200 mg PO BID #14 tab 06/18/21 [Rx Last Taken Unknown] metoprolol succinate 12.5 mg PO DAILY #0 tab 06/18/21 [Rx Last Taken 06/16/21] sennosides-docusate sodium [Stool Softener-Stimulant Laxat] 2 tab PO BID PRN PRN #0 tab 06/18/21 [Rx Last Taken Unknown] amoxicillin 875 mg-potassium clavulanate 125 mg tablet 1 tab PO BID #20 tab 07/01/21 [Rx Last Taken Unknown] fluticasone fur. 200 mcg-umeclid 62.5 mcg-vilant 25 mcg inhalat.powder 1 inh INHALATION DAILY #60 ea 07/01/21 [Rx Last Taken Unknown] galantamine 16 mg 24 hr capsule,extended release 16 mg PO QAM #30 cap 07/01/21 [Rx Last Taken Unknown] galantamine 8 mg 24 hr capsule,extended release 8 mg PO QAM #30 cap 07/01/21 [Rx Last Taken Unknown] prednisone 20 mg tablet 60 mg PO QDAY #15 tab 07/01/21 [Rx Last Taken Unknown] furosemide 40 mg tablet 40 mg PO DAILY PRN #1 tab 07/08/21 [Rx Last Taken Unknown] sotalol 80 mg tablet 80 mg PO BID #60 tab 07/19/21 [Rx Last Taken Unknown] Allergy/AdvReac Type Severity Reaction Status Date / Time No Known Allergies Allergy Verified 07/08/21 13:20 Family History Father Colon cancer Surgical History H/O coronary artery bypass surgery (01/17/14) History of carpal tunnel release History of electrophysiologic study (03/15/21) History of left heart catheterization (03/12/21) History of radiofrequency ablation procedure for cardiac arrhythmia (01/17/14) Social History household members: other housing: apartment current occupational status: employed pets and animals: No Smoking Status: Former smoker quit date: 05/22/20 Tobacco: How many years used: 52 Electronic Cigarette Use: not used second hand exposure: Yes alcohol intake: never substance use type: does not use ROS ROS Narrative Patient is able to answer simple medical questions, he is a poor informant however due to underlying dementia Review of Systems ROS Unobtainable: due to mental status Vital Signs Vital Signs Vital Signs: 07/21/21 14:54 07/21/21 15:02 07/21/21 16:09 Temperature 97.9 F Temperature Source Temporal Pulse Rate 80 79 Respiratory Rate 15 17 Respiratory Effort Normal Non-Labored Blood Pressure 111/74 Blood Pressure Mean 86 Pulse Ox 98 Oxygen Delivery Method Nasal Cannula Nasal Cannula Oxygen Flow Rate (L/min) 3 07/21/21 17:18 07/21/21 17:32 07/21/21 17:33 Temperature 98.0 F Temperature Source Temporal Pulse Rate 82 82 Respiratory Rate 17 17 Respiratory Effort Blood Pressure 111/90 H 111/90 H Blood Pressure Mean 97 97 Pulse Ox 98 98 92 Oxygen Delivery Method Nasal Cannula Nasal Cannula Nasal Cannula Oxygen Flow Rate (L/min) 3 3 3 Weight Weight: 67.3 kg Body Mass Index (BMI) 27.1 Physical Exam Const alert Constitutional Narrative: Patient appears older than stated age, he does not appear to be in any distress General Appearance: cooperative, well kempt and well developed Orientation / Consciousness: awake, oriented to person, oriented to place and oriented to time HEENT normocephalic HEENT Narrative: Mucous membranes are dry, patient has a forehead abrasion that is nonbleeding at this time, there is no discharge from the area Eyes PERRL, EOMs intact bilaterally and conjunctivae normal Neck nuchal rigidity, supple, no JVD, thyroid normal and no carotid bruits General: trachea midline Resp normal respiratory effort, no retractions, no use of accessory muscles and clear to auscultation bilaterally Auscultation: Negative for rales, rhonchi or wheezes Cardio regular rate, regular rhythm, S1 normal heart sound, S2 normal heart sound, no murmurs, no rub and no gallops GI normal to inspection, nondistended, normoactive bowel sounds, soft to palpation, non-tender and non-distended Extremity Extremity Narrative: There is a large area of denuded skin over the patient's left upper and lower arms, this area is nonbleeding at the time of my examination, it is covered with a dry dressing Skin no rashes or lesions noted General Skin Exam: no breakdown Neuro CN's II-XII intact bilaterally, no focal motor deficits and no sensory deficits noted Neuro Narrative: Patient answer simple questions appropriately Sensorium / Orientation: awake and alert Speech: speech normal Psych Psych Narrative: Patient's affect appears to be flat, he is alert as to person, and place. He answers simple questions appropriately Results Lab / Micro Data Result Diagrams: 07/21/21 16:09 07/21/21 16:09 Labs: Laboratory Results - last 24 hr 07/21/21 16:09: WBC 16.3 H, RBC 4.56 L, Hgb 13.1, Hct 39.1 L, MCV 85.7, MCH 28.7, MCHC 33.5, RDW Std Deviation 47.3 H, RDW Coeff of Sujata 14.9 H, Plt Count 373, MPV 11.1, Immature Gran % (Auto) 0.600, Neut % (Auto) 85.0 H, Lymph % (Auto) 5.1 L, [place] % (Auto) 9.2, Eos % (Auto) 0.0, Baso % (Auto) 0.1, Absolute Neuts (auto) 13.9 H, Absolute Lymphs (auto) 0.83, Nucleated RBC % 0 07/21/21 16:09: Sodium 135 L, Potassium 4.5, Chloride 100, Carbon Dioxide 25.0, Anion Gap 10, BUN 63 H, Creatinine 3.91 H, Estim Creat Clear Calc 13.19, Est GFR (MDRD) Af Amer 20 L, Est GFR (MDRD) Non-Af 16 L, BUN/Creatinine Ratio 16.1, Glucose 124 H, Calcium 9.5 07/21/21 17:20: Urine Color Yellow, Urine Clarity Clear, Urine pH 5.0, Ur Specific [place] 1.020, Urine Protein 30 H, Urine Glucose (UA) Normal, Urine Ketones 5 H, Urine Occult Blood 25 H, Urine Nitrite Negative, Urine Bilirubin 1 H, Urine Urobilinogen Normal, Ur Leukocyte Esterase 25 H Radiology Impression Brain CT 07/21/21 15:12 IMPRESSION: Relatively stable age-related chronic changes of the brain. Electronically Signed: Miguelangel Carrillo DO at 16:48 EDT , Cervical Spine CT 07/21/21 15:13 IMPRESSION: Moderate degenerative changes of the cervical spine. Electronically Signed: Miguelangel Carrillo DO at 17:06 EDT , Assessment & Plan Assessment/Plan (1) Acute kidney injury: PLAN: 1. Acute kidney injury-patient will be admitted to [facility] 3, IV fluids will be administered, daily labs will be obtained #2 generalized debility secondary to multiple medical problems (acute kidney injury, ischemic cardiomyopathy, COPD, chronic hypoxic respiratory failure, dementia)-patient will be seen by PT and OT, he may need short-term placement in a correction facility. #3 ischemic cardiomyopathy-patient's last echocardiogram performed at [facility] showed a normal ejection fraction, he is on Entresto as an outpatient, he will not be able to take this medication due to his renal failure, it may need to be reinstituted when the patient's creatinine returns to normal #4 chronic hypoxic respiratory failure-patient states that he is normally on 3 L of oxygen at all times at home, this is probably secondary to chronic obstructive pulmonary disease #5 chronic obstructive pulmonary disease-patient will be maintained on DuoNeb aerosol treatments and as needed albuterol treatments #6 Alzheimer's dementia-patient is currently on Razadyne-the hospital does not stock this medication, it will be held during his hospitalization here, this diagnosis complicates recovery and care #7 paroxysmal atrial fibrillation-patient is on Eliquis and metoprolol as well as sotalol #8 polyneuropathy-patient is currently on Lyrica as needed, this may be contributing to to his overall debility, I have elected to hold this medication at this time #9 GERD-patient is on a PPI #10 multiple skin tears of the patient's left arm-wound care will see the patient tomorrow #11 hyperlipidemia-patient is on a statin #12 chronic depression-patient is currently on citalopram and Wellbutrin, these will be continued #13 chronic congestive heart failure with preserved ejection fraction-patient's Lasix will be held due to his acute renal failure #14 atherosclerotic heart disease-patient is currently on metoprolol, statin, and Plavix Charges/Coding Visit Charges Inpatient E&M: 96963 Init Hosp L3
[2021-07-21 18:08] VITALS: BMI 25.6
[2021-07-21 19:04] VITALS: BP 110/48; PULSE 82; RESP 18; TEMP 36.6; O2SAT 94
[2021-07-21] MEDS: 0.9% Normal Saline 1,000 ML 100 ML IV (20:26)
[2021-07-21] MEDS: Atorvastatin Calcium 80 MG Tablet PO (22:28)
[2021-07-21] MEDS: Sotalol Hydrochloride 80 MG Tablet PO (22:28)
[2021-07-21] MEDS: buPROPion 75 MG Tablet 150 MG PO (22:28)
[2021-07-21] MEDS: APIXABAN 2.5 MG TABLET PO (22:28)
[2021-07-21] MEDS: Nystatin Powder 15gm Bottle 1 APPLIC TOPICAL (22:29)
[2021-07-21] MEDS: guaiFENesin 1,200 MG Tablet 1200 MG PO (22:29)
[2021-07-21] MEDS: Menthol/Lanolin/Calamine/Znox 113 GM Tube 1 APPLIC TOPICAL (22:29)
[2021-07-21] MEDS: 0.9% Saline Lock 10 ML Syringe IV (22:37)
[2021-07-22] VITALS (7 sets, daily range): BP systolic 98–124; BP diastolic 47–59; PULSE 48–88; RESP 18; TEMP 36.7–37.9; O2SAT 93–97
[2021-07-22] MEDS: Acetaminophen 325 MG Tablet 650 MG PO (03:00)
[2021-07-22] MEDS: 0.9% Normal Saline 1,000 ML 100 ML IV (06:35)
[2021-07-22] MEDS: Nystatin Powder 15gm Bottle 1 APPLIC TOPICAL ×3 (06:35→21:17)
[2021-07-22 06:43] LABS: Anion Gap 6 (5-15); BUN 60 mg/dL (7-18); BUN/Creat Ratio 27.6 RATIO (10-20); Calcium,Total 8.6 mg/dL (8.5-10.1); Chloride 106 mmol/L (98-107); Creatinine, Serum 2.17 mg/dL (0.70-1.30); EST Glomerular Filtration Rate 32 mL/min (>60); Est Glom Filt Rate - Afr Amer 39 mL/min (>60); Estimated Creatinine Clearance 23.76 ml/min; Glucose 109 mg/dL (74-106); Sodium Level 137 mmol/L (136-145)
--- NOTE | 2021-07-22 08:23 | WOUNDNOTE ---
wound photo: left arm
--- NOTE | 2021-07-22 08:23 | WOUNDNOTE ---
wound photo: forehead
[2021-07-22] MEDS: Citalopram 10 MG Tablet PO (10:02)
[2021-07-22] MEDS: APIXABAN 2.5 MG TABLET PO ×2 (10:02→21:16)
[2021-07-22] MEDS: buPROPion 75 MG Tablet 150 MG PO ×2 (10:03→21:16)
[2021-07-22] MEDS: guaiFENesin 1,200 MG Tablet 1200 MG PO ×2 (10:03→21:16)
[2021-07-22] MEDS: Sotalol Hydrochloride 80 MG Tablet PO ×2 (10:03→21:16)
[2021-07-22] MEDS: Pantoprazole Sodium 20 MG Tablet PO (10:03)
[2021-07-22] MEDS: Clopidogrel Bisulfate 75 MG Tablet PO (10:03)
[2021-07-22] MEDS: Menthol/Lanolin/Calamine/Znox 113 GM Tube 1 APPLIC TOPICAL ×2 (10:06→21:16)
--- NOTE | 2021-07-22 11:56 | CASEMGMT ---
Social Work SW met with pt and introduced self and role of SW. Pt know to this SW from hospital admission 06/16/21-06/18/21. Pt lives in a one story apartment with a ramp to enter. 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 Pt had [facility] PT/OT at discharge from last hospitalization but states he has not been doing well since returning home. He has had falls and is not walking well or able to care for himself. SW spoke with pt regarding short term SNF placement for strengthening and rehabilitation and pt is agreeable to that. Pt states his sister is being cared for by her daughter. SW provided list of SNF providers including quality and resource use data and consistent with the patiet's preferred geographic region, medicl needs and insurance network. Pt preferred provider is 1. [facility]. [facility] 3. [facility]. Phone call to [facility] in TCU and they do not have a bed available. SW spoke to Miriam, discharge vp ad products and planning, who will make referral to [facility]. SW will await determination. SALVADOR Chairez
--- NOTE | 2021-07-22 12:02 | PN.HOSP_ITS ---
Subjective Subjective Ambulated with assistance. Complains of left knee pain. When he fell, he did not land on left knee, but rather his right knee. Objective Data Objective Data Vital Signs: Vital Signs Temp Pulse Resp BP Pulse Ox 36.7 C 78 18 98/58 L 94 07/22/21 11:22 07/22/21 11:22 07/22/21 11:22 07/22/21 11:22 07/22/21 11:22 Oxygen Flow Rate (L/min) 4 Oxygen Delivery Method Nasal Cannula Weight: 63.6 kg Body Mass Index (BMI) 25.6 Intake & Output: Intake and Output for Last 24 Hours 07/20/21 07/21/21 07/22/21 23:59 23:59 23:59 Intake Total 1535 / 1535 Output Total 400 / 400 Balance 1135 / 1135 Lab / Micro Data Result Diagrams: 07/21/21 16:09 07/22/21 05:55 Labs: Laboratory Results - last 24 hr 07/21/21 16:09: WBC 16.3 H, RBC 4.56 L, Hgb 13.1, Hct 39.1 L, MCV 85.7, MCH 28.7, MCHC 33.5, RDW Std Deviation 47.3 H, RDW Coeff of Sujata 14.9 H, Plt Count 373, MPV 11.1, Immature Gran % (Auto) 0.600, Neut % (Auto) 85.0 H, Lymph % (Auto) 5.1 L, [place] % (Auto) 9.2, Eos % (Auto) 0.0, Baso % (Auto) 0.1, Absolute Neuts (auto) 13.9 H, Absolute Lymphs (auto) 0.83, Nucleated RBC % 0 07/21/21 16:09: Sodium 135 L, Potassium 4.5, Chloride 100, Carbon Dioxide 25.0, Anion Gap 10, BUN 63 H, Creatinine 3.91 H, Estim Creat Clear Calc 13.19, Est GFR (MDRD) Af Amer 20 L, Est GFR (MDRD) Non-Af 16 L, BUN/Creatinine Ratio 16.1, Glucose 124 H, Calcium 9.5 07/21/21 17:20: Urine Color Yellow, Urine Clarity Clear, Urine pH 5.0, Ur Specific [place] 1.020, Urine Protein 30 H, Urine Glucose (UA) Normal, Urine Ketones 5 H, Urine Occult Blood 25 H, Urine Nitrite Negative, Urine Bilirubin 1 H, Urine Urobilinogen Normal, Ur Leukocyte Esterase 25 H, Urine RBC 0 SEEN, Urine WBC 0 SEEN, Ur Squamous Epith Cells 0 SEEN, Urine Bacteria 0 SEEN, Urine Mucus 0 SEEN 07/22/21 05:55: Sodium 137, Potassium 4.0, Chloride 106, Carbon Dioxide 25.0, Anion Gap 6, BUN 60 H, Creatinine 2.17 H, Estim Creat Clear Calc 23.76, Est GFR (MDRD) Af Amer 39 L, Est GFR (MDRD) Non-Af 32 L, BUN/Creatinine Ratio 27.6 H, Glucose 109 H, Calcium 8.6 Radiography Diagnostic Testing: Radiology Impression Brain CT 07/21/21 15:12 IMPRESSION: Relatively stable age-related chronic changes of the brain. Electronically Signed: Miguelangel Carrillo DO at 16:48 EDT , Cervical Spine CT 07/21/21 15:13 IMPRESSION: Moderate degenerative changes of the cervical spine. Electronically Signed: Miguelangel Carrillo DO at 17:06 EDT , Chest X-Ray 07/21/21 16:35 IMPRESSION: Basilar atelectasis. Electronically Signed: Miguelangel Carrillo DO at 17:47 EDT , Physical Exam Const alert and no apparent distress HEENT head/scalp atraumatic Head and Scalp: normocephalic Resp normal respiratory effort, no retractions, no use of accessory muscles and clear to auscultation bilaterally Cardio regular rate, regular rhythm, S1 normal heart sound and S2 normal heart sound GI normal to inspection, nondistended, normoactive bowel sounds, soft to palpation, non-tender and non-distended Extremity normal to inspection Extremity Narrative: left knee with medial tenderness. FROM. No effusion. Arthritic changes to bilateral knees. Neuro Sensorium / Orientation: awake and alert Assessment & Plan Assessment/Plan (1) Acute kidney injury: (2) Frequent falls: (3) Left knee pain: QUALIFIERS: Chronicity: acute Qualified Code(s): M25.562 - Pain in left knee PLAN: 1. MATHIEU improving suspect prerenal HLIV give h/o CHF continue to hold furosemide for now 2. Falls PT OT eval additional therapy recomended. 3. L Knee pain suspect MCL strain check xray. 4.HFpEF, chronic stable Enptresto held give MATHIEU 5. pAfib anticoagulated with apixaban on sotalol and metoprolol tartrate 6. VTE prophylaxis: not indicated as he is anticoagulated. Charges/Coding Visit Charges Inpatient E&M: 76181 Subs Hosp L2
--- NOTE | 2021-07-22 12:18 | CHAPLAIN ---
Type of Pastoral Visit _x__ Initial Visit ___ Follow-up Visit ___ On-call Visit ___ General Patient Visit ___ Spiritual Assessment ___ Family Conference ___ Bereavement ___ Rapid Response ___ Code Blue ___ Other (describe below) Pastoral Care Referral From _x__ Patient ___ Family ___ Nurse ___ Physician ___ Wrinkle Chaser ___ Supervisor Hand Workers ___ Other (describe below) Sacrament/Intervention _x__ Active listening ___ Anointing ___ Jain ___ Bereavement ___ Communion _x__ Kylie exploration ___ _x__ Life review _x__ Prayer ___ Reconciliation ___ Sacrament of Sick _x__ Supportive presence ___ Wedding ___ Other (describe below) Pastoral Comments patient states not doing so well and then begins to ask questions about spiritual issues and personal concerns about kylie; longer discussion and time of listening; patient also asked for a Bible which was given to him then; pt also reports on his family home situation; prayer and support given
--- NOTE | 2021-07-22 13:15 | CASEMGMT ---
Discharge Marketing Clerk Called Casper at [facility]. SHe is sending referral over for review. Faxed PT/OT over to her. Will Follow up. Miriam Curry Discharge Marketing Clerk
--- NOTE | 2021-07-22 13:35 | RAD_ITS ---
INDICATION: left medial knee pain EXAMINATION/TECHNIQUE: X-RAY - LEFT XR Knee 1 or 2 Views 2 VIEWS COMPARISON: Left knee radiograph from 06/30/2015. FINDINGS/ RAD/Knee 1 or 2 Views IMPRESSION: No acute fracture or dislocation. Mixed lytic and sclerotic area in the distal femoral diaphysis. This is slightly more conspicuous than on previous study from 06/30/2015 and is felt to represent a bone infarct. Mild tricompartment osteoarthritis. Joint spaces are otherwise intact. Vascular calcifications. Soft tissues are otherwise unremarkable. Small suprapatellar joint effusion. Electronically Signed: Harsh Singleton, at 13:59 EDT ,
[2021-07-22] MEDS: 0.9% Saline Lock 10 ML Syringe IV (14:03)
[2021-07-22] MEDS: MELATONIN 3 MG TABLET PO (21:16)
[2021-07-22] MEDS: Atorvastatin Calcium 80 MG Tablet PO (21:17)
[2021-07-23] VITALS (11 sets, daily range): BP systolic 101–129; BP diastolic 54–60; PULSE 80–92; RESP 16–24; TEMP 37.2–37.7; O2SAT 93–98
[2021-07-23] MEDS: Nystatin Powder 15gm Bottle 1 APPLIC TOPICAL ×3 (06:00→20:22)
[2021-07-23 07:21] LABS: Anion Gap 10 (5-15); BUN 28 mg/dL (7-18); BUN/Creat Ratio 27.7 RATIO (10-20); Calcium,Total 9.1 mg/dL (8.5-10.1); Chloride 105 mmol/L (98-107); Creatinine, Serum 1.01 mg/dL (0.70-1.30); EST Glomerular Filtration Rate 77 mL/min (>60); Est Glom Filt Rate - Afr Amer 93 mL/min (>60); Estimated Creatinine Clearance 51.06 ml/min; Glucose 109 mg/dL (74-106); Potassium 3.7 mmol/L (3.5-5.1); Sodium Level 135 mmol/L (136-145)
--- NOTE | 2021-07-23 08:46 | CASEMGMT ---
Discharge Burlap Man Called Casper at [facility]. Left a VM following up on the referral sent yesterday. Will continue to follow up. Miriam Curry Discharge Burlap Man
[2021-07-23] MEDS: Sotalol Hydrochloride 80 MG Tablet PO ×2 (08:50→20:21)
[2021-07-23] MEDS: guaiFENesin 1,200 MG Tablet 1200 MG PO (08:50)
[2021-07-23] MEDS: Clopidogrel Bisulfate 75 MG Tablet PO (08:50)
[2021-07-23] MEDS: buPROPion 75 MG Tablet 150 MG PO ×2 (08:50→20:21)
[2021-07-23] MEDS: Pantoprazole Sodium 20 MG Tablet PO (08:50)
[2021-07-23] MEDS: Metoprolol(XL)Succ 25 MG Tablet 12.5 MG PO (08:50)
[2021-07-23] MEDS: APIXABAN 2.5 MG TABLET PO ×2 (08:51→20:21)
[2021-07-23] MEDS: Citalopram 10 MG Tablet PO (08:51)
[2021-07-23] MEDS: Menthol/Lanolin/Calamine/Znox 113 GM Tube 1 APPLIC TOPICAL ×2 (08:51→20:22)
[2021-07-23] MEDS: Budesonide Respules 0.5 MG/2 ML AMPUL.NEB. INHALATION ×2 (09:25→19:25)
[2021-07-23] MEDS: Albuterol 2.5 MG/3 ML VIAL.NEB. INHALATION ×2 (09:25→17:26)
--- NOTE | 2021-07-23 10:31 | CASEMGMT ---
Discharge Straddle Bug Operator Touched base with Casper at [facility]. She is going to call my back. DON has not got a chance to review it yet. Will follow up. Miriam Curry Discharge Straddle Bug Operator
--- NOTE | 2021-07-23 11:20 | CASEMGMT ---
Discharge Studio Hand Casper from [facility] reached out. They can accept the patient. Casper will start pre-cert. Carlita KUMAR was notified. Miriam Curry Discharge Studio Hand
--- NOTE | 2021-07-23 12:56 | PN.HOSP_ITS ---
Subjective Subjective Left knee pain is improved. Objective Data Objective Data Vital Signs: Vital Signs Temp Pulse Resp BP Pulse Ox 37.2 C 92 24 H 121/55 H 97 07/23/21 08:45 07/23/21 09:25 07/23/21 09:25 07/23/21 08:45 07/23/21 08:45 Oxygen Flow Rate (L/min) 4 Oxygen Delivery Method Nasal Cannula Weight: 63.6 kg Body Mass Index (BMI) 25.6 Intake & Output: Intake and Output for Last 24 Hours 07/21/21 07/22/21 07/23/21 23:59 23:59 23:59 Intake Total 1535 / 1535 Output Total 400 / 500 100 / 100 Balance 1135 / 1035 -100 / -100 Lab / Micro Data Result Diagrams: 07/21/21 16:09 07/23/21 06:00 Labs: Laboratory Results - last 24 hr 07/23/21 06:00: Sodium 135 L, Potassium 3.7, Chloride 105, Carbon Dioxide 20.0 L , Anion Gap 10, BUN 28 H, Creatinine 1.01, Estim Creat Clear Calc 51.06, Est GFR (MDRD) Af Amer 93, Est GFR (MDRD) Non-Af 77, BUN/Creatinine Ratio 27.7 H, Glucose 109 H, Calcium 9.1 Radiography Diagnostic Testing: Radiology Impression Knee X-Ray 07/22/21 13:35 IMPRESSION: No acute fracture or dislocation. Mixed lytic and sclerotic area in the distal femoral diaphysis. This is slightly more conspicuous than on previous study from 06/30/2015 and is felt to represent a bone infarct. Mild tricompartment osteoarthritis. Joint spaces are otherwise intact. Vascular calcifications. Soft tissues are otherwise unremarkable. Small suprapatellar joint effusion. Electronically Signed: Harsh Singleton, at 13:59 EDT , Physical Exam Const alert Constitutional Narrative: on commode. no respiratory distress. no conversational dyspnea. Resp normal respiratory effort, no retractions, no use of accessory muscles and clear to auscultation bilaterally Cardio regular rate, regular rhythm, S1 normal heart sound and S2 normal heart sound GI normal to inspection, nondistended, normoactive bowel sounds, soft to palpation, non-tender and non-distended Psych affect normal Assessment & Plan Assessment/Plan (1) Acute kidney injury: (2) Frequent falls: (3) Left knee pain: QUALIFIERS: Chronicity: acute Qualified Code(s): M25.562 - Pain in left knee PLAN: 1. MATHIEU improving suspect prerenal HLIV give h/o CHF continue to hold furosemide for now 2. Falls PT OT eval additional therapy recomended. 3. L Knee pain improve suspect MCL strain xray negative 4.HFpEF, chronic stable Enptresto held give MATHIEU 5. pAfib anticoagulated with apixaban on sotalol and metoprolol tartrate 6. VTE prophylaxis: not indicated as he is anticoagulated. Charges/Coding Visit Charges Inpatient E&M: 96371 Subs Hosp L2
[2021-07-23] MEDS: Ipratropium/Albuterol Sulfate 3 ML AMPUL.NEB INHALATION ×2 (13:11→19:25)
--- NOTE | 2021-07-23 15:34 | CASEMGMT ---
Social Work Note SW in to speak with pt. SW introduced self and role at [facility]. SW updated pt that he has been accepted to [facility] pending pre-cert. Pt states understanding. Plan: [facility] pending pre-cert Carlita Allen PATHOLOGY TECH, NCR OPERATOR
--- NOTE | 2021-07-23 16:11 | CASEMGMT ---
Discharge Rubbish Collector Casper called and pre-cert has been obtained. Carlita KUMAR notified. Miriam Curry Discharge Rubbish Collector
--- NOTE | 2021-07-23 17:24 | CASEMGMT ---
Addendum entered by Carlita Allen 07/23/21 18:21: Pt's pre-cert is good for the weekend. Original Note: Social Work Note SW updated that pre-cert has been obtained but [facility] is requesting discharge tomorrow. SW updated physician. Pt to discharge to [facility] tomorrow. SW placed a call to Casper at [facility] and left message informing her pt will discharge to [facility] tomorrow. SW in to speak with pt. SW updated pt that pre-cert was obtained for [facility], pt will discharge to [facility] tomorrow. Pt states understanding. SW placed Green Sheet, transport forms, COVID tool on pt's chart. Pt will need COVID test on day of discharge. Plan: [facility] skilled tomorrow Carlita Allen AIRCRAFT SYSTEMS TECHNICIAN, PRICE CHECKER
[2021-07-23] MEDS: MELATONIN 3 MG TABLET PO (22:28)
[2021-07-24] VITALS (10 sets, daily range): BP systolic 113; BP diastolic 64; PULSE 66–171; RESP 17–20; TEMP 37.2–37.3; O2SAT 95–100
[2021-07-24] MEDS: Albuterol 2.5 MG/3 ML VIAL.NEB. INHALATION ×2 (00:34→03:29)
[2021-07-24] MEDS: Budesonide Respules 0.5 MG/2 ML AMPUL.NEB. INHALATION (07:23)
[2021-07-24] MEDS: Ipratropium/Albuterol Sulfate 3 ML AMPUL.NEB INHALATION (07:23)
[2021-07-24] MEDS: Nystatin Powder 15gm Bottle 1 APPLIC TOPICAL (08:21)
[2021-07-24] MEDS: Menthol/Lanolin/Calamine/Znox 113 GM Tube 1 APPLIC TOPICAL (08:22)
[2021-07-24] MEDS: buPROPion 75 MG Tablet 150 MG PO (08:23)
[2021-07-24] MEDS: Citalopram 10 MG Tablet PO (08:24)
[2021-07-24] MEDS: Clopidogrel Bisulfate 75 MG Tablet PO (08:24)
[2021-07-24] MEDS: Pantoprazole Sodium 20 MG Tablet PO (08:24)
[2021-07-24] MEDS: APIXABAN 2.5 MG TABLET PO (08:24)
[2021-07-24] MEDS: Sotalol Hydrochloride 80 MG Tablet PO (08:25)
[2021-07-24] MEDS: Metoprolol(XL)Succ 25 MG Tablet 12.5 MG PO (08:34)
--- NOTE | 2021-07-24 09:16 | PCM.TXEXTCAR ---
Diet 07/24/21 08:59 Diet: Regular - General Food consistency:: Mechanical (Minced/Moist) Liquid Consistency:: Old Stine/Mildly Thick Is pt able to select menu?: No Diet Comments: Sup at meals, Sips by Tsp only, Discont diet if concerns for poor tolerance Routine Orders/Code Status O2 Frequency: Continuous (3l/min) Keep PO Greater than or Equal to (%): 90 Routine Lab Work: BMP Code Status: Full Code Wound(s) Left Arm to Elbow: Wound Type: Skin Tear forhead: Wound Type: Abrasion left arm: Wound Type: Skin Tear Dressing Change: Adaptic Therapies Weight Bearing: Full weight bearing Physical Therapy: Eval and Treat Occupational Therapy: Eval and Treat Problem/Diagnosis (1) Acute kidney injury: Status: Acute (2) Frequent falls: Status: Acute (3) Left knee pain: Status: Acute Allergies/Procedures Done in Hospital Allergies No Known Allergies Allergy (Verified 07/08/21 13:20) Type of Care/Length of Stay Estimated LOS: Convalescent Care Less Than 30 days Type of Care Needed: Skilled Rehab Potential: Fair Prognosis: Fair Additional Orders/Day of Discharge Day of Discharge: 07/24/21 Discharge Plan Admission Admit Date/Time: 07/21/21 19:37 Primary Reason for Your Visit: acute kidney injury Attending Provider: Elmer Barrera Primary Care Provider: Jb Melendez Chi Discharge Orders/Prescriptions Prescriptions: New acetaminophen [Tylenol] 325 mg Tablet 650 mg PO Q6H PRN PRN (Reason: Pain Score 1-10) Qty: 0 RF: 0 nystatin [Nyamyc] 100,000 unit/gram Powder 1 applic topical TID Qty: 0 RF: 0 Continued albuterol sulfate 90 mcg/actuation HFA aerosol inhaler 2 puff inhalation Q4H PRN (Reason: shortness of breath or wheezing) Qty: 8.5 RF: 6 pregabalin 75 mg capsule 75 mg PO BID PRN (Reason: Pain) RF: 0 atorvastatin 80 mg tablet 80 mg PO DAILY RF: 0 icosapent ethyl 1 gram capsule 2 g PO BID RF: 0 Trelegy Ellipta 200-62.5-25 mcg blister with device 1 inh inhalation DAILY Qty: 60 RF: 11 galantamine 8 mg capsule,ext rel. pellets 24 hr 8 mg PO QAM Qty: 30 RF: 0 galantamine 16 mg capsule,ext rel. pellets 24 hr 16 mg PO QAM Qty: 30 RF: 3 allopurinol 100 MG tablet 100 mg PO DAILY RF: 0 bhskxepa-ajf-AS-lycopen-lutein 1 EACH tablet 1 tab PO DAILY RF: 0 bupropion HCl (smoking deter) 150 mg tablet extended release 12 hr 150 mg PO BID RF: 0 citalopram 10 mg tablet 10 mg PO DAILY RF: 0 clopidogrel 75 mg tablet 75 mg PO DAILY RF: 0 omeprazole 20 mg capsule,delayed release(DR/EC) 20 mg PO DAILY RF: 0 sennosides-docusate sodium [Stool Softener-Stimulant Laxat] 8.6-50 mg Tablet 2 tab PO BID PRN PRN (Reason: Constipation) Qty: 0 RF: 0 Mucus Relief ER 1,200 mg Tablet Extended Release 12hr 1,200 mg PO BID Qty: 14 RF: 0 metoprolol succinate 25 mg tablet extended release 24 hr 12.5 mg PO DAILY Qty: 0 RF: 0 Eliquis 5 mg tablet 2.5 mg PO BID Qty: 0 RF: 0 Entresto 97-103 mg tablet 1 tab PO DAILY Qty: 0 RF: 0 baclofen 10 mg tablet 10 mg PO TID PRN (Reason: Pain) Qty: 0 RF: 0 sotalol 80 mg tablet 80 mg PO BID Qty: 60 RF: 11 Discontinued prednisone 20 mg tablet 60 mg PO QDAY Qty: 15 RF: 0 amoxicillin-pot clavulanate 875-125 mg tablet 1 tab PO BID Qty: 20 RF: 0 furosemide [Lasix] 40 mg tablet 40 mg PO DAILY PRN (Reason: leg swelling) Qty: 1 RF: 0 tramadol 50 mg tablet 50 - 100 mg PO TID PRN (Reason: Pain) RF: 0 Referrals / Follow Up: [facility] [Provider Group] - 12/02/21 2:30 pm Jb Melendez Chi, MD [Primary Care Provider] - Within 2 Weeks Disposition Disposition (needs filled in before D/C Order can be placed): Nursing Home Facility
--- NOTE | 2021-07-24 09:59 | EKG12_ITS ---
Test Reason : Blood Pressure : / mmHG Vent. Rate : 099 BPM Atrial Rate : 099 BPM P-R Int : 124 ms QRS Dur : 098 ms QT Int : 340 ms P-R-T Axes : 076 -44 071 degrees QTc Int : 436 ms Normal sinus rhythm Left axis deviation Abnormal ECG Confirmed by ROB VENEGAS, KHANG ([id number]), visual effects editor MORGAN JOSEPH ([id number]) on 07/27/2021 10:42:42 AM Referred By: ROWENA Confirmed By:KHANG RIVAS MD
--- NOTE | 2021-07-24 10:41 | DS.PCM_ITS ---
Providers Date of Admission: 07/21/21 Date of Discharge: 07/24/21 Primary Care Physician: Dr. 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 Routine Comment: Reason for Consult:: wound care Reason For Visit: ACUTE KIDNEY INJURY, DEBILITY Diagnosis Discharge Diagnosis (1) Acute kidney injury: Status: Acute Code(s): N17.9 - Acute kidney failure, unspecified (2) Frequent falls: Status: Acute Code(s): R29.6 - Repeated falls (3) Left knee pain: Status: Acute Code(s): M25.562 - Pain in left knee Qualifiers: Chronicity: acute Qualified Code(s): M25.562 - Pain in left knee Medications at Discharge Home Medications allopurinol 100 mg PO DAILY 07/17/20 tzravguu-xce-RH-lycopen-lutein 1 tab PO DAILY 07/17/20 atorvastatin 80 mg tablet 80 mg PO DAILY tab 09/17/20 bupropion HCl (smoking deter) 150 mg tablet,12 hr sustained-release(smoking deterrent) 150 mg PO BID tab 09/17/20 icosapent ethyl 1 gram capsule 2 g PO BID cap 09/17/20 pregabalin 75 mg capsule 75 mg PO BID PRN cap 09/17/20 albuterol sulfate 90 mcg/actuation aerosol inhaler 2 puff INHALATION Q4H PRN #8.5 g 12/22/20 citalopram 10 mg PO DAILY 06/16/21 clopidogrel 75 mg PO DAILY 06/16/21 omeprazole 20 mg PO DAILY 06/16/21 Eliquis 2.5 mg PO BID #0 tab 06/18/21 Entresto 1 tab PO DAILY #0 tab 06/18/21 Mucus Relief ER 1,200 mg PO BID #14 tab 06/18/21 baclofen 10 mg PO TID PRN #0 tab 06/18/21 metoprolol succinate 12.5 mg PO DAILY #0 tab 06/18/21 sennosides-docusate sodium [Stool Softener-Stimulant Laxat] 2 tab PO BID PRN PRN #0 tab 06/18/21 fluticasone fur. 200 mcg-umeclid 62.5 mcg-vilant 25 mcg inhalat.powder 1 inh INHALATION DAILY #60 ea 07/01/21 galantamine 16 mg 24 hr capsule,extended release 16 mg PO QAM #30 cap 07/01/21 galantamine 8 mg 24 hr capsule,extended release 8 mg PO QAM #30 cap 07/01/21 sotalol 80 mg tablet 80 mg PO BID #60 tab 07/19/21 acetaminophen [Tylenol] 650 mg PO Q6H PRN PRN #0 tab 07/24/21 nystatin [Nyamyc] 1 applic TOPICAL TID #0 g 07/24/21 Hospital Course Operations None Procedures None Summary of Care Provided Minutes Spent on Discharge: 32 Hospital Course: 1. MATHIEU improved with IVF suspect prerenal continue to hold furosemide for now 2. Falls PT OT eval additional therapy recommended. Patient to be discharged to [facility] for further rehabilitaion. 3. L Knee pain improve suspect MCL strain xray negative 4.HFpEF, chronic stable Enptresto held give MATHIEU 5. pAfib anticoagulated with apixaban on sotalol and metoprolol tartrate Weight / BMI Weight Weight: 63.6 kg Body Mass Index (BMI) 25.6 ABG / Lab / Microbiology Data Result Diagrams: 07/21/21 16:09 07/23/21 06:00 Microbiology: Microbiology 07/24/21 08:50 Nasal Secretion SARS-CoV-2 Antigen (Rapid) - Final Meaningful Use Info Meaningful Use Diagnoses (Choose all that apply): None applicable Discharge Plan Admission Admit Date/Time: 07/21/21 19:37 Primary Reason for Your Visit: acute kidney injury Attending Provider: Elmer Barrera Primary Care Provider: Jb Melendez Chi Discharge Orders/Prescriptions Prescriptions: New acetaminophen [Tylenol] 325 mg Tablet 650 mg PO Q6H PRN PRN (Reason: Pain Score 1-10) Qty: 0 RF: 0 nystatin [Nyamyc] 100,000 unit/gram Powder 1 applic topical TID Qty: 0 RF: 0 Continued albuterol sulfate 90 mcg/actuation HFA aerosol inhaler 2 puff inhalation Q4H PRN (Reason: shortness of breath or wheezing) Qty: 8.5 RF: 6 pregabalin 75 mg capsule 75 mg PO BID PRN (Reason: Pain) RF: 0 atorvastatin 80 mg tablet 80 mg PO DAILY RF: 0 icosapent ethyl 1 gram capsule 2 g PO BID RF: 0 Trelegy Ellipta 200-62.5-25 mcg blister with device 1 inh inhalation DAILY Qty: 60 RF: 11 galantamine 8 mg capsule,ext rel. pellets 24 hr 8 mg PO QAM Qty: 30 RF: 0 galantamine 16 mg capsule,ext rel. pellets 24 hr 16 mg PO QAM Qty: 30 RF: 3 allopurinol 100 MG tablet 100 mg PO DAILY RF: 0 cjiguqtx-esm-FK-lycopen-lutein 1 EACH tablet 1 tab PO DAILY RF: 0 bupropion HCl (smoking deter) 150 mg tablet extended release 12 hr 150 mg PO BID RF: 0 citalopram 10 mg tablet 10 mg PO DAILY RF: 0 clopidogrel 75 mg tablet 75 mg PO DAILY RF: 0 omeprazole 20 mg capsule,delayed release(DR/EC) 20 mg PO DAILY RF: 0 sennosides-docusate sodium [Stool Softener-Stimulant Laxat] 8.6-50 mg Tablet 2 tab PO BID PRN PRN (Reason: Constipation) Qty: 0 RF: 0 Mucus Relief ER 1,200 mg Tablet Extended Release 12hr 1,200 mg PO BID Qty: 14 RF: 0 metoprolol succinate 25 mg tablet extended release 24 hr 12.5 mg PO DAILY Qty: 0 RF: 0 Eliquis 5 mg tablet 2.5 mg PO BID Qty: 0 RF: 0 Entresto 97-103 mg tablet 1 tab PO DAILY Qty: 0 RF: 0 baclofen 10 mg tablet 10 mg PO TID PRN (Reason: Pain) Qty: 0 RF: 0 sotalol 80 mg tablet 80 mg PO BID Qty: 60 RF: 11 Discontinued prednisone 20 mg tablet 60 mg PO QDAY Qty: 15 RF: 0 amoxicillin-pot clavulanate 875-125 mg tablet 1 tab PO BID Qty: 20 RF: 0 furosemide [Lasix] 40 mg tablet 40 mg PO DAILY PRN (Reason: leg swelling) Qty: 1 RF: 0 tramadol 50 mg tablet 50 - 100 mg PO TID PRN (Reason: Pain) RF: 0 Referrals / Follow Up: [facility] [Provider Group] - 12/02/21 2:30 pm Jb Melendez Chi, MD [Primary Care Provider] - Within 2 Weeks Disposition Disposition (needs filled in before D/C Order can be placed): Group Home Facility Charges/Coding Visit Charges Inpatient E&M: 47203 Disch Hosp
--- NOTE | 2021-07-24 11:34 | CM.ED ---
JOSÉ Note JOSÉ spoke to PEARL Lamar and she advised patient is being discharged. JOSÉ called MS3 RN Cyndee who confirmed patient is going to [facility] at discharge. JOSÉ completed HENS 8840 form. Plan: [facility] Lashanda CALVIN
--- NOTE | 2021-07-24 12:35 | NURSING ---
Pt told me this morning he was missing his dentures. This nurse got busy and did not look into but Siria the community youth secretary called Family to tell them he was leaving for [facility] and family asked about dentures. Family stated that his granddaughter dropped off his dentures on wrapped up in a paper towel and handed it to some old man down at the front desk manager along with his phone immigration services officer. Dentures and immigration services officer did not have pt's name on them. Deinz Cuellar went down to main entrance desk and was able to find immigration services officer but no Dentures were able to be found.
--- NOTE | 2021-07-24 12:50 | NURSING ---
Report Given to Kai FLANNERY at [facility] at this time.
== END 2021-07-24 12:51 | disposition skilled nursing facility (03) | DRG 683 ==
LOC: ED 17:27 → MS3 20:04
PROVIDERS: Admitting Provider Internal Medicine; Emergency Provider Emergency Medicine; PCP Family Medicine Geriatric Medicine
DX: N17.9 Acute kidney failure, unspecified (principal); I13.0 Hypertensive heart and chronic kidney disease with heart failure and stage 1 through stage 4 chronic kidney disease, or unspecified chronic kidney disease; J96.11 Chronic respiratory failure with hypoxia; I50.32 Chronic diastolic (congestive) heart failure; F02.80 Dementia in other diseases classified elsewhere, unspecified severity, without behavioral disturbance, psychotic disturbance, mood disturbance, and anxiety; G30.9 Alzheimer's disease, unspecified; I48.0 Paroxysmal atrial fibrillation; E86.0 Dehydration; E78.5 Hyperlipidemia, unspecified; F32.A Depression, unspecified; J44.9 Chronic obstructive pulmonary disease, unspecified; G62.9 Polyneuropathy, unspecified; I25.10 Atherosclerotic heart disease of native coronary artery without angina pectoris; I25.5 Ischemic cardiomyopathy; K21.9 Gastro-esophageal reflux disease without esophagitis; S83.412A Sprain of medial collateral ligament of left knee, initial encounter; N18.2 Chronic kidney disease, stage 2 (mild); W19.XXXA Unspecified fall, initial encounter; N40.0 Benign prostatic hyperplasia without lower urinary tract symptoms; S00.81XA Abrasion of other part of head, initial encounter; S20.212A Contusion of left front wall of thorax, initial encounter; S51.012A Laceration without foreign body of left elbow, initial encounter; S41.112A Laceration without foreign body of left upper arm, initial encounter; Z87.891 Personal history of nicotine dependence; R53.81 Other malaise; Z79.02 Long term (current) use of antithrombotics/antiplatelets; Z79.01 Long term (current) use of anticoagulants; Z86.73 Personal history of transient ischemic attack (TIA), and cerebral infarction without residual deficits; Z79.899 Other long term (current) drug therapy; Z95.1 Presence of aortocoronary bypass graft; R29.6 Repeated falls; Z99.81 Dependence on supplemental oxygen; Y93.9 Activity, unspecified; Y92.009 Unspecified place in unspecified non-institutional (private) residence as the place of occurrence of the external cause
CPT/HCPCS: 36415; 70450; 71045; 72125; 73560; 80048; 81001; 85025; 87426; 92526; 92610; 93005; 94640; 97110; 97162; 97166; 97530; 97535; 99285; J7030; A4216

== ENCOUNTER → 2021-07-26 | Outpatient (REF) | payer SELFPAY ==
[2021-07-26 08:24] LABS: Absolute Lymphocyte Count 0.85 X10^3/uL (0.83-4.51); Absolute Neutrophil Count 8.8 X10^3/uL (2.0-7.7); Basophil# 0.02 X10^3/uL; Basophil% 0.2 % (0-1); Hematocrit 32.3 % (40-54); Hemoglobin 10.3 g/dL (13.0-16.5); Lymphocyte # 0.85 X10^3/ul (0.83-4.51); Mean Corp Hgb Conc 31.9 g/dL (32-36); Mean Corpuscular Hgb 27.8 pg (27.0-32.0); Mean Corpuscular Volume 87.1 fL (80-94); Mean Platelet Vol. 10.7 fl (6.2-12.0); Monocyte# 2.43 X10^3/uL; NRBC Flagged by Analyzer 0 % (0-5); Neutrophil # 8.77 X10^3/uL (2.7-7.7); Neutrophil % 72.4 % (47-70); POSITIVE DIFFERENTIAL YES; Platelet Count 509 K/mm3 (150-450); RBC Distribution Width CV 15.1 % (11.6-14.6); RBC Distribution Width SD 47.8 fl (35.1-43.9); Red Blood Count 3.71 M/mm3 (4.6-6.2); White Blood Count 12.1 K/mm3 (4.4-11.0)
[2021-07-26 08:25] LABS: Differential Indicated SCAN CRITERIA MET
[2021-07-26 08:46] LABS: Anion Gap 7 (5-15); BUN 20 mg/dL (7-18); BUN/Creat Ratio 23.1 RATIO (10-20); Calcium,Total 9.3 mg/dL (8.5-10.1); Chloride 102 mmol/L (98-107); Creatinine, Serum 0.86 mg/dL (0.70-1.30); EST Glomerular Filtration Rate 92 mL/min (>60); Est Glom Filt Rate - Afr Amer 112 mL/min (>60); Glucose 120 mg/dL (74-106); Potassium 3.8 mmol/L (3.5-5.1); Sodium Level 136 mmol/L (136-145)
[2021-07-27 13:01] LABS: Pathologist Review Reviewed
== END | disposition home or self-care (01) ==
LOC: OLS.SW300 04:00
PROVIDERS: PCP Family Medicine Geriatric Medicine; Referring Provider Family Medicine; Visit Provider Family Medicine
DX: I10 Essential (primary) hypertension (principal)
CPT/HCPCS: 36415; 80048; 85025

== ENCOUNTER 2021-07-27 18:58 | Inpatient (IN) | payer MEDICARE, MEDICAID, SELFPAY ==
[2021-07-27] VITALS (9 sets, daily range): BP systolic 96–121; BP diastolic 58–74; PULSE 96–152; RESP 17–22; TEMP 36.3–36.8; O2SAT 93–98; BMI 27.3; BMI 25.5
--- NOTE | 2021-07-27 19:10 | EKG12_ITS ---
Test Reason : CP Blood Pressure : / mmHG Vent. Rate : 122 BPM Atrial Rate : 122 BPM P-R Int : 130 ms QRS Dur : 084 ms QT Int : 316 ms P-R-T Axes : 082 -28 084 degrees QTc Int : 450 ms Sinus tachycardia Low voltage QRS ST depression, consider subendocardial injury Nonspecific T wave abnormality Abnormal ECG Confirmed by CRISTA VENEGAS, STEVE ([id number]), editor newspaper MORGAN JOSEPH ([id number]) on 07/29/2021 10:00:33 AM Referred By: TIMOTHY Confirmed By:STEVE TOBIN MD
[2021-07-27 19:22] LABS: Absolute Lymphocyte Count 1.69 X10^3/uL (0.83-4.51); Absolute Neutrophil Count 8.9 X10^3/uL (2.0-7.7); Basophil# 0.01 X10^3/uL; Basophil% 0.1 % (0-1); Hematocrit 35.5 % (40-54); Hemoglobin 11.7 g/dL (13.0-16.5); Lymphocyte # 1.69 X10^3/ul (0.83-4.51); Lymphocyte % 14.5 % (19-41); Mean Corpuscular Hgb 28.1 pg (27.0-32.0); Mean Corpuscular Volume 85.1 fL (80-94); Mean Platelet Vol. 10.7 fl (6.2-12.0); Monocyte# 0.94 X10^3/uL; Monocyte% 8.1 % (0-10); NRBC Flagged by Analyzer 0 % (0-5); Neutrophil # 8.92 X10^3/uL (2.7-7.7); Neutrophil % 76.4 % (47-70); Platelet Count 703 K/mm3 (150-450); RBC Distribution Width SD 47.1 fl (35.1-43.9); Red Blood Count 4.17 M/mm3 (4.6-6.2); White Blood Count 11.7 K/mm3 (4.4-11.0)
[2021-07-27] MEDS: Aspirin 81 MG TAB.CHEW 324 MG PO (19:24)
--- NOTE | 2021-07-27 19:28 | ED.VIS.CHEST ---
HPI History of Present Illness Chief Complaint: Chest Pain Informant: patient Onset/Context/Timing Onset: Today and Hours Activity at onset: sudden Timing: Continuous Location: Substernal Current Severity: Moderate Maximum Severity: Moderate Worsened By: Nothing Relieved By: - (Chest pain resolved after being cardioverted.) Associated Symptoms: Positive for Dyspnea; Negative for Nausea and Vomiting Narrative Narrative: 70-year-old male and in assisted facility. This afternoon around 330 chest pain. He said he generally get the attention of nursing for around 3 hours was unable to. Called 911. When they arrived the patient was in V. tach with a pulse, heart rate of about 240.. Patient was shocked x1 and converted to a sinus rhythm. Pain resolved. He does have a history of double bypass, A. fib and renal insufficiency. He denies any cardiac stents. He is on both Plavix and Eliquis. Recently was hospitalized for a fall. Prior Similar Symptoms: Yes Recent Illness/Hospitalization: No CVD Risk Factors: Positive for Hypertension; Negative for Diabetes PE Risk Factors: Negative for Recent Travel/Surgery, Recent Immobilization, Prior DVT or PE, Cancer and OCP + Smoking + >/=35 TAD Risk Factors: Negative for Marfan's Syndrome [facility] Medical History (HFpEF) heart failure with preserved ejection fraction ACC/AHA stage B congestive heart failure due to ischemic cardiomyopathy Anemia Asthma-COPD overlap syndrome Atherosclerosis of coronary artery of [place] heart without angina pectoris Atrial fibrillation with rapid ventricular response (03/11/21) Benign prostatic hypertrophy Chronic respiratory failure Closed head injury COPD (chronic obstructive pulmonary disease) CVA (cerebral vascular accident) (05/29/18) DDD (degenerative disc disease) Essential (primary) hypertension HFrEF (heart failure with reduced ejection fraction) Hyperlipidemia Ischemic cardiomyopathy Laceration of scalp Left carotid artery stenosis Multiple falls Myoclonic jerking Nicotine dependence in remission Nicotine dependence, cigarettes, uncomplicated Nocturnal hypoxemia Osteoarthritis Paroxysmal atrial fibrillation (2008) Peripheral vascular occlusive disease Severe persistent asthma Smoking greater than 40 pack years Stage 3 chronic kidney disease Home Medications allopurinol 100 mg PO DAILY 07/17/20 [History Last Taken 06/16/21] woxgnatj-ucg-OQ-lycopen-lutein 1 tab PO DAILY 07/17/20 [History Last Taken 06/16/21] atorvastatin 80 mg tablet 80 mg PO DAILY tab 09/17/20 [History Last Taken 06/15/21] bupropion HCl (smoking deter) 150 mg tablet,12 hr sustained-release(smoking deterrent) 150 mg PO BID tab 09/17/20 [History Last Taken 06/16/21] icosapent ethyl 1 gram capsule 2 g PO BID cap 09/17/20 [History Last Taken 06/16/21] pregabalin 75 mg capsule 75 mg PO BID PRN cap 09/17/20 [History Last Taken 06/16/21] albuterol sulfate 90 mcg/actuation aerosol inhaler 2 puff INHALATION Q4H PRN #8.5 g 12/22/20 [Rx Last Taken 01/15/21] citalopram 10 mg PO DAILY 06/16/21 [History Last Taken 06/16/21] clopidogrel 75 mg PO DAILY 06/16/21 [History Last Taken 06/16/21] omeprazole 20 mg PO DAILY 06/16/21 [History Last Taken 06/16/21] Eliquis 2.5 mg PO BID #0 tab 06/18/21 [Rx Last Taken 06/16/21] Entresto 1 tab PO DAILY #0 tab 06/18/21 [Rx Last Taken 06/16/21] Mucus Relief ER 1,200 mg PO BID #14 tab 06/18/21 [Rx Last Taken Unknown] baclofen 10 mg PO TID PRN #0 tab 06/18/21 [Rx Last Taken 06/16/21] metoprolol succinate 12.5 mg PO DAILY #0 tab 06/18/21 [Rx Last Taken 06/16/21] sennosides-docusate sodium [Stool Softener-Stimulant Laxat] 2 tab PO BID PRN PRN #0 tab 06/18/21 [Rx Last Taken Unknown] fluticasone fur. 200 mcg-umeclid 62.5 mcg-vilant 25 mcg inhalat.powder 1 inh INHALATION DAILY #60 ea 07/01/21 [Rx Last Taken Unknown] galantamine 16 mg 24 hr capsule,extended release 16 mg PO QAM #30 cap 07/01/21 [Rx Last Taken Unknown] galantamine 8 mg 24 hr capsule,extended release 8 mg PO QAM #30 cap 07/01/21 [Rx Last Taken Unknown] sotalol 80 mg tablet 80 mg PO BID #60 tab 07/19/21 [Rx Last Taken Unknown] acetaminophen [Tylenol] 650 mg PO Q6H PRN PRN #0 tab 07/24/21 [Rx Last Taken Unknown] nystatin [Nyamyc] 1 applic TOPICAL TID #0 g 07/24/21 [Rx Last Taken Unknown] Allergy/AdvReac Type Severity Reaction Status Date / Time No Known Allergies Allergy Verified 07/27/21 19:00 Family History Father Colon cancer Surgical History H/O coronary artery bypass surgery (01/17/14) History of carpal tunnel release History of electrophysiologic study (03/15/21) History of left heart catheterization (03/12/21) History of radiofrequency ablation procedure for cardiac arrhythmia (01/17/14) Social History household members: other housing: apartment current occupational status: employed pets and animals: No Smoking Status: Former smoker quit date: 05/22/20 Tobacco: How many years used: 52 Electronic Cigarette Use: not used second hand exposure: Yes alcohol intake: never substance use type: does not use ROS ROS ED ROS Narrative Denies recent illness. Review of Systems ROS Unobtainable: Denies due to encephalopathy Constitutional Constitutional ED: Denies fever(s) Eyes Eyes: Denies none ENT ENT ED: Denies ear pain Cardiovascular Cardiovascular: Reports as per HPI, chest pain and palpitations Respiratory/Chest Respiratory/Chest: Denies dyspnea Gastrointestinal Gastrointestinal: Denies abdominal pain Genitourinary Genitourinary ED: Denies dysuria Musculoskeletal Musculoskeletal: Denies myalgias Integumentary Denies rash Neurologic Neurologic: Denies headache(s) Psychiatric Psychiatric: Denies depression Endocrine Endocrinology: Denies polyuria Hematologic/Lymphatic Hematologic/Lymphatic: Denies easy bruising Allergic/Immunologic Allergic/Immunologic ED: Denies urticaria EXAM Physical Exam Narrative Exam Narrative: 70-year-old male no acute distress. Vital signs stable. Current heart rate is 120. H EENT exam unremarkable. Neck nontender. No JVD. Lungs clear to auscultation. Heart regular rhythm rate about 122 no murmur. Chest wall nontender. Abdomen soft nontender. Moving all 4 extremities. Nontender. No edema or cords. Neurologically is awake and alert with no focal motor deficits. Const Vital Signs: 07/27/21 18:59 07/27/21 19:00 07/27/21 19:10 Temperature 97.3 F L Temperature Source Temporal Pulse Rate 122 H Respiratory Rate 18 Blood Pressure 109/74 Blood Pressure Mean 85 Pulse Ox 98 93 Oxygen Delivery Method Nasal Cannula Nasal Cannula Nasal Cannula Oxygen Flow Rate (L/min) 3 6 3 07/27/21 19:59 07/27/21 20:00 07/27/21 22:00 Temperature Temperature Source Pulse Rate 108 H 119 H 103 H Respiratory Rate 17 19 H 22 H Blood Pressure 96/71 116/58 L 118/72 Blood Pressure Mean 79 77 87 Pulse Ox 96 95 98 Oxygen Delivery Method Nasal Cannula Nasal Cannula Room Air Oxygen Flow Rate (L/min) 3 3 Positive well nourished and well developed; Negative for obese, cachectic, contractures or unkempt General Appearance ED: well developed and NAD; Negative for unkempt, cachectic, contractures or pallor Nutritional Appearance: Negative for cachectic or obese HEENT Reports moist mucous membranes normocephalic and atraumatic Eyes PERRL and EOMs intact bilaterally Neck no lymphadenopathy, supple and no JVD General: Negative for tenderness Chest Wall inspection of chest normal and palpation of chest normal Resp normal respiratory effort and clear to auscultation bilaterally Effort and Inspection: respiratory distress Auscultation: Negative for rales, rhonchi or wheezes Cardio regular rhythm, S1 normal heart sound, S2 normal heart sound and no murmurs; Negative for regular rate Rate: tachycardic GI normal to inspection, nondistended, normoactive bowel sounds, soft to palpation, non-tender, non-distended and no masses Back/Spine no CVA tenderness Extremity normal to inspection General Extremety ED: Negative for edema or tenderness General Extremity: Negative for edema Neuro oriented x3 Sensorium / Orientation: awake, alert, oriented to person, oriented to place and oriented to time Motor Exam: strength 5/5 throughout Psych mental status grossly normal Appearance: Negative for unkempt Skin no rashes or lesions noted and no wounds General Skin Exam: Negative for jaundice or pallor MDM MDM MDM Narrative Medical decision making narrative: Older male assisted with an episode of V. tach for which she was cardioverted. Had chest pain at that time. Will undergo cardiac work-up and be admitted. Repeat exam patient is doing well at 9:57 PM. We went over his test results. I spoken to the hospitalist and cardiology on page for admission here to the PCU. Lab Data Attestation: I reviewed the patient's lab results. Lab results narrative: CBC shows a white count 11.7. H&H 11.7 and 35. Platelet count of 703. Sodium 132. Gap of 10 BUN of 18 creatinine 1.2. Glucose 144. Magnesium 1.8. Troponin 67. Labs: Laboratory Results - last 24 hr 07/27/21 07/27/21 07/27/21 19:12 19:12 19:41 WBC 11.7 H RBC 4.17 L Hgb 11.7 L Hct 35.5 L MCV 85.1 MCH 28.1 MCHC 33.0 RDW Std Deviation 47.1 H RDW Coeff of Sujata 16.0 H Plt Count 703 H MPV 10.7 Immature Gran % (Auto) 0.900 Neut % (Auto) 76.4 H Lymph % (Auto) 14.5 L Ralls % (Auto) 8.1 Eos % (Auto) 0.0 Baso % (Auto) 0.1 Absolute Neuts (auto) 8.9 H Absolute Lymphs (auto) 1.69 Nucleated RBC % 0 Sodium Cancelled 132 L Potassium Cancelled 4.1 Chloride Cancelled 98 Carbon Dioxide Cancelled 24.0 Anion Gap Cancelled 10 BUN Cancelled 18 Creatinine Cancelled 1.20 Estim Creat Clear Calc Cancelled 41.16 Est GFR (MDRD) Af Amer Cancelled 76 Est GFR (MDRD) Non-Af Cancelled 63 BUN/Creatinine Ratio Cancelled 15.0 Glucose Cancelled 144 H Calcium Cancelled 9.5 Magnesium Cancelled 1.8 Troponin I High Sens Cancelled 67 07/27/21 22:00 WBC RBC Hgb Hct MCV MCH MCHC RDW Std Deviation RDW Coeff of Sujata Plt Count MPV Immature Gran % (Auto) Neut % (Auto) Lymph % (Auto) Ralls % (Auto) Eos % (Auto) Baso % (Auto) Absolute Neuts (auto) Absolute Lymphs (auto) Nucleated RBC % Sodium Potassium Chloride Carbon Dioxide Anion Gap BUN Creatinine Estim Creat Clear Calc Est GFR (MDRD) Af Amer Est GFR (MDRD) Non-Af BUN/Creatinine Ratio Glucose Calcium Magnesium Troponin I High Sens 113 H Radiography Chest X-Ray - ED: 1 View, Read by ED Physician, Heart, Lungs, Mediastinum, Bony Structures, No Acute Disease and Chronic Changes Diagnostic Testing: Clinical Impression(s) from Imaging Studies Chest X-Ray 07/27/21 19:30 IMPRESSION: No acute radiographic abnormalities. Bibasilar atelectasis. Electronically Signed: Shan Marion MD at 20:42 EDT , Chest x-ray, portable, single view shows no acute abnormality. Chronic changes. Normal cardiac silhouette. Rhythm Strip Rhythm Strip: Sinus Tach Rate: 122 Ectopy: None EKG Initial EKG: Attestation: I personally reviewed and interpreted this EKG as follows: Interpretation: Sinus Rhythm and No Acute Injury Pattern Comments: Sinus tachycardia rate of 122. No acute signs of NM. He does have ST depression in the lateral leads V4 5 and 6. Discharge Plan Triage Chief Complaint: Chest Pain ED Provider: Tee Shields Dx/Rx/DC Orders Clinical Impression: Ventricular tachycardia, Chest pain, History of atrial fibrillation Prescriptions: No Action albuterol sulfate 90 mcg/actuation HFA aerosol inhaler 2 puff inhalation Q4H PRN (Reason: shortness of breath or wheezing) Qty: 8.5 RF: 6 pregabalin 75 mg capsule 75 mg PO BID PRN (Reason: Pain) RF: 0 atorvastatin 80 mg tablet 80 mg PO DAILY RF: 0 icosapent ethyl 1 gram capsule 2 g PO BID RF: 0 Trelegy Ellipta 200-62.5-25 mcg blister with device 1 inh inhalation DAILY Qty: 60 RF: 11 galantamine 8 mg capsule,ext rel. pellets 24 hr 8 mg PO QAM Qty: 30 RF: 0 galantamine 16 mg capsule,ext rel. pellets 24 hr 16 mg PO QAM Qty: 30 RF: 3 allopurinol 100 MG tablet 100 mg PO DAILY RF: 0 qoupaynj-lka-GP-lycopen-lutein 1 EACH tablet 1 tab PO DAILY RF: 0 bupropion HCl (smoking deter) 150 mg tablet extended release 12 hr 150 mg PO BID RF: 0 citalopram 10 mg tablet 10 mg PO DAILY RF: 0 clopidogrel 75 mg tablet 75 mg PO DAILY RF: 0 omeprazole 20 mg capsule,delayed release(DR/EC) 20 mg PO DAILY RF: 0 sennosides-docusate sodium [Stool Softener-Stimulant Laxat] 8.6-50 mg Tablet 2 tab PO BID PRN PRN (Reason: Constipation) Qty: 0 RF: 0 Mucus Relief ER 1,200 mg Tablet Extended Release 12hr 1,200 mg PO BID Qty: 14 RF: 0 metoprolol succinate 25 mg tablet extended release 24 hr 12.5 mg PO DAILY Qty: 0 RF: 0 Eliquis 5 mg tablet 2.5 mg PO BID Qty: 0 RF: 0 Entresto 97-103 mg tablet 1 tab PO DAILY Qty: 0 RF: 0 baclofen 10 mg tablet 10 mg PO TID PRN (Reason: Pain) Qty: 0 RF: 0 acetaminophen [Tylenol] 325 mg Tablet 650 mg PO Q6H PRN PRN (Reason: Pain Score 1-10) Qty: 0 RF: 0 nystatin [Nyamyc] 100,000 unit/gram Powder 1 applic topical TID Qty: 0 RF: 0 sotalol 80 mg tablet 80 mg PO BID Qty: 60 RF: 11 Primary Care Provider: Rodney Fontenot Referrals: Rodney Fontenot MD [Primary Care Provider] - Disposition Disposition: Acute Care Hospital [facility]
--- NOTE | 2021-07-27 19:30 | RAD_ITS ---
INDICATION: chest pain EXAMINATION/TECHNIQUE: X-RAY - XR Chest 1 View COMPARISON: 07/21/2021. FINDINGS: There is bibasilar atelectasis. Sternal cerclage wires and vascular clips are present from a prior sternotomy and coronary artery bypass graft procedure (CABG). Tortuous and calcified thoracic aorta. No pleural effusion or pneumothorax. Degenerative changes of the thoracic spine. RAD/Chest 1 View (Portable) IMPRESSION: No acute radiographic abnormalities. Bibasilar atelectasis. Electronically Signed: Shan Marion MD at 20:42 EDT ,
[2021-07-27 20:33] LABS: Anion Gap 10 (5-15); BUN 18 mg/dL (7-18); Calcium,Total 9.5 mg/dL (8.5-10.1); Chloride 98 mmol/L (98-107); EST Glomerular Filtration Rate 63 mL/min (>60); Est Glom Filt Rate - Afr Amer 76 mL/min (>60); Estimated Creatinine Clearance 41.16 ml/min; Glucose 144 mg/dL (74-106); Magnesium 1.8 mg/dL (1.6-2.6); Potassium 4.1 mmol/L (3.5-5.1); Sodium Level 132 mmol/L (136-145); Troponin-I HS 67 pg/mL (3.0-78.0)
--- NOTE | 2021-07-27 20:58 | HP.PCM.HOS_ITS ---
HPI - General General Date of Admission: 07/27/21 HPI Narrative KAMILLA DICKSON, is a 70 M who presents with chest pain and arrythmia. This afternoon at 330 pm he began having chest pain that was 10/10 but no radiation. Didn't recall chest pain prior to this event. He tried getting attention of nursing for 30-45 minutes and so instead he called 911. When they arrived the patient was in V. tach with a pulse, heart rate of about 240. Patient was shocked x1 and converted to a sinus rhythm ( 50J). Pain resolved. He does have a history of double bypass, A. fib and renal insufficiency. He is on both Plavix and Eliquis. THe patient states he had chest pain from cough. Now he has no compl aints. Patient was admitted here on July 21 with complaints of generalized weakness and falls at home & discharged to long term and has been there less than a week. Myocardial perfusion stress test in Jan 2021 was negative for ischemia, with mild cardiomyopathy. Patient did undergo a heart catheterization in March 2021 at [facility]. Medical management was recommended. He then did undergo an EP study. It was noninducible for VT. He is on sotalol at 80 mg twice daily. The patient was hemodynically stable in ED, given full dose aspirin. Blood pressure on my evaluation was 118/72 with a HR Of 103. Electrolytes reviewed - normal, good mag level. Previous MATHIEU now resolved, Cr normal 1.20. Sodium 132. cardiology was called in ED. EKG was sinus tachycardia. Troponin was 118. Second one drawn at time of evaluation. [facility] Medical History (Updated 07/27/21 @ 23:19 by Sully Sung) (HFpEF) heart failure with preserved ejection fraction ACC/AHA stage B congestive heart failure due to ischemic cardiomyopathy Anemia Asthma Asthma-COPD overlap syndrome Atherosclerosis of coronary artery of [place] heart without angina pectoris Atrial fibrillation Atrial fibrillation with rapid ventricular response (03/11/21) Benign prostatic hypertrophy Chronic pain Chronic respiratory failure Closed head injury Congestive heart failure (CHF) COPD (chronic obstructive pulmonary disease) Coronary artery disease CVA (cerebral vascular accident) (05/29/18) DDD (degenerative disc disease) Difficulty chewing Difficulty swallowing Dyspnea Essential (primary) hypertension Former smoker Hearing loss, left Hearing loss, right HFrEF (heart failure with reduced ejection fraction) High cholesterol Hyperlipidemia Hypertension Irregular heart beat Ischemic cardiomyopathy Kidney disease Laceration of scalp Left carotid artery stenosis Multiple falls Myocardial infarct Myoclonic jerking Nicotine dependence in remission Nicotine dependence, cigarettes, uncomplicated Nocturnal hypoxemia On home oxygen therapy Osteoarthritis Osteoporosis Paroxysmal atrial fibrillation (2008) Peripheral vascular occlusive disease Rheumatoid arthritis Severe persistent asthma Smoking greater than 40 pack years Stage 3 chronic kidney disease Vision loss of left eye Vision loss of right eye Home Medications allopurinol 100 mg PO DAILY 07/17/20 [History Last Taken 06/16/21] wjlzjlkn-qlb-FM-lycopen-lutein 1 tab PO DAILY 07/17/20 [History Last Taken 06/16/21] atorvastatin 80 mg tablet 80 mg PO DAILY tab 09/17/20 [History Last Taken 06/15/21] bupropion HCl (smoking deter) 150 mg tablet,12 hr sustained-release(smoking deterrent) 150 mg PO BID tab 09/17/20 [History Last Taken 06/16/21] icosapent ethyl 1 gram capsule 2 g PO BID cap 09/17/20 [History Last Taken 06/16/21] pregabalin 75 mg capsule 75 mg PO BID PRN cap 09/17/20 [History Last Taken 06/16/21] albuterol sulfate 90 mcg/actuation aerosol inhaler 2 puff INHALATION Q4H PRN #8.5 g 12/22/20 [Rx Last Taken 01/15/21] citalopram 10 mg PO DAILY 06/16/21 [History Last Taken 06/16/21] clopidogrel 75 mg PO DAILY 06/16/21 [History Last Taken 06/16/21] omeprazole 20 mg PO DAILY 06/16/21 [History Last Taken 06/16/21] Eliquis 2.5 mg PO BID #0 tab 06/18/21 [Rx Last Taken 06/16/21] Entresto 1 tab PO DAILY #0 tab 06/18/21 [Rx Last Taken 06/16/21] Mucus Relief ER 1,200 mg PO BID #14 tab 06/18/21 [Rx Last Taken Unknown] baclofen 10 mg PO TID PRN #0 tab 06/18/21 [Rx Last Taken 06/16/21] metoprolol succinate 12.5 mg PO DAILY #0 tab 06/18/21 [Rx Last Taken 06/16/21] sennosides-docusate sodium [Stool Softener-Stimulant Laxat] 2 tab PO BID PRN PRN #0 tab 06/18/21 [Rx Last Taken Unknown] fluticasone fur. 200 mcg-umeclid 62.5 mcg-vilant 25 mcg inhalat.powder 1 inh INHALATION DAILY #60 ea 07/01/21 [Rx Last Taken Unknown] galantamine 16 mg 24 hr capsule,extended release 16 mg PO QAM #30 cap 07/01/21 [Rx Last Taken Unknown] galantamine 8 mg 24 hr capsule,extended release 8 mg PO QAM #30 cap 07/01/21 [Rx Last Taken Unknown] sotalol 80 mg tablet 80 mg PO BID #60 tab 07/19/21 [Rx Last Taken Unknown] acetaminophen [Tylenol] 650 mg PO Q6H PRN PRN #0 tab 07/24/21 [Rx Last Taken Unknown] nystatin [Nyamyc] 1 applic TOPICAL TID #0 g 07/24/21 [Rx Last Taken Unknown] Allergy/AdvReac Type Severity Reaction Status Date / Time No Known Allergies Allergy Verified 07/27/21 19:00 Family History Father Colon cancer Surgical History H/O coronary artery bypass surgery (01/17/14) History of carpal tunnel release History of electrophysiologic study (03/15/21) History of left heart catheterization (03/12/21) History of radiofrequency ablation procedure for cardiac arrhythmia (01/17/14) Social History household members: other housing: apartment current occupational status: employed pets and animals: No Smoking Status: Former smoker quit date: 05/22/20 Tobacco: How many years used: 52 Electronic Cigarette Use: not used second hand exposure: Yes alcohol intake: never substance use type: does not use ROS ROS Narrative + cough no trouble with abd pain, urination difficulty/hematuria, no issues with numbness/tingling, blurry vision no issues with chest pain history of recent + falls remainder of 7 pt negative. Vital Signs Vital Signs Vital Signs: 07/27/21 18:59 07/27/21 19:00 07/27/21 19:10 Temperature 97.3 F L Temperature Source Temporal Pulse Rate 122 H Respiratory Rate 18 Blood Pressure 109/74 Blood Pressure Mean 85 Pulse Ox 98 93 Oxygen Delivery Method Nasal Cannula Nasal Cannula Nasal Cannula Oxygen Flow Rate (L/min) 3 6 3 07/27/21 19:59 07/27/21 20:00 Temperature Temperature Source Pulse Rate 108 H 119 H Respiratory Rate 17 19 H Blood Pressure 96/71 116/58 L Blood Pressure Mean 79 77 Pulse Ox 96 95 Oxygen Delivery Method Nasal Cannula Nasal Cannula Oxygen Flow Rate (L/min) 3 3 Weight Weight: 144 lb 8 oz Body Mass Index (BMI) 27.3 Physical Exam Narrative HEENT Dry mucous membranes normocephalic and atraumatic Eyes PERRL and EOMs intact bilaterally Neck no lymphadenopathy on visual inspection no jvd General: Negative for tenderness Chest Wall inspection of chest normal and palpation of chest normal Resp normal respiratory effort and mild congestion noises, no wheezing or increased work. Effort and Inspection: respiratory distress Auscultation: Negative for rales, rhonchi or wheezes Cardio regular rhythm, S1 normal heart sound, S2 normal heart sound and no murmurs; Negative for regular rate Rate: tachycardic GI normal to inspection, nondistended, normoactive bowel sounds, soft to palpation, non-tender, non-distended and no masses Extremity Left arm with superficial wound, wrapped in dressing. General Extremety ED: Negative for edema or tenderness General Extremity: Negative for edema Neuro oriented x3 Psych mental status grossly normal Appearance: Negative for unkempt Skin wound on forehead, and left arm General Skin Exam: Negative for jaundice or pallor Results Lab / Micro Data Result Diagrams: 07/28/21 05:04 07/27/21 19:41 Labs: Laboratory Results - last 24 hr 07/27/21 19:12: WBC 11.7 H, RBC 4.17 L, Hgb 11.7 L, Hct 35.5 L, MCV 85.1, MCH 28.1, MCHC 33.0, RDW Std Deviation 47.1 H, RDW Coeff of Sujata 16.0 H, Plt Count 703 H, MPV 10.7, Immature Gran % (Auto) 0.900, Neut % (Auto) 76.4 H, Lymph % (Auto) 14.5 L, [place] % (Auto) 8.1, Eos % (Auto) 0.0, Baso % (Auto) 0.1, Absolute Neuts (auto) 8.9 H, Absolute Lymphs (auto) 1.69, Nucleated RBC % 0 07/27/21 19:12: Sodium Cancelled, Potassium Cancelled, Chloride Cancelled, Carbon Dioxide Cancelled, Anion Gap Cancelled, BUN Cancelled, Creatinine Cancelled, Estim Creat Clear Calc Cancelled, Est GFR (MDRD) Af Amer Cancelled, Est GFR (MDRD) Non-Af Cancelled, BUN/Creatinine Ratio Cancelled, Glucose Cancelled, Calcium Cancelled, Magnesium Cancelled, Troponin I High Sens Cancelled 07/27/21 19:41: Sodium 132 L, Potassium 4.1, Chloride 98, Carbon Dioxide 24.0, Anion Gap 10, BUN 18, Creatinine 1.20, Estim Creat Clear Calc 41.16, Est GFR (MDRD) Af Amer 76, Est GFR (MDRD) Non-Af 63, BUN/Creatinine Ratio 15.0, Glucose 144 H, Calcium 9.5, Magnesium 1.8, Troponin I High Sens 67 Rhythm Strip Rhythm Strip: Sinus Tach Rate: 122 Ectopy: None Radiology Impression Chest X-Ray 07/27/21 19:30 IMPRESSION: No acute radiographic abnormalities. Bibasilar atelectasis. Electronically Signed: Shan Marion MD at 20:42 EDT , Assessment & Plan Assessment/Plan (1) Essential (primary) hypertension: (2) (HFpEF) heart failure with preserved ejection fraction: (3) COPD (chronic obstructive pulmonary disease): (4) Chest pain: PLAN: 1. Chest Pain and recent V-tach arrythmia. Optimize ventilation, correct electrolytes as needed. Monitor in PCU on telemetry Consult cardiology. Ok per cardiology for 25 mg tartrate beta janet. Patient is currently on metoprolol, sotalol, statin, and Plavix. Holding sotalol in case amiodarone needs to be started. New 2D echo per cards recs, I will keep NPO midnight and hold Eliquis if catheterization. Holding hydralazine, low normal BP and can add back later. #2 generalized debility secondary to multiple medical problems (acute kidney inj ury, ischemic cardiomyopathy, COPD, chronic hypoxic respiratory failure, dementia)-patient will be seen by PT - was recently seent in a [facility] facility. #3 ischemic cardiomyopathy-patient's last echocardiogram performed at [facility] showed a normal ejection fraction, he is on Entresto as an outpatient, he will not be able to take this medication due to his renal failure, it may need to be rein stituted when the patient's creatinine returns to normal #4 chronic hypoxic respiratory failure-patient states that he is normally on 3 L of oxygen at all times at home, (probably from COPD) and will continue NC oxygen. Home respiratory meds. #5 chronic obstructive pulmonary disease-patient will be maintained on DuoNeb aerosol treatments PRN and as needed albuterol treatments #6 Alzheimer's dementia-patient is currently on Razadyne-the hospital does not stock this medication, it will be held during his hospitalization here, this diagnosis complicates recovery and care #7 paroxysmal atrial fibrillation-patient is on Eliquis and metoprolol as well as sotalol at home - hold sotalol. #8 polyneuropathy-patient was on Lyrica, hold at this time. #9 GERD-patient is on a PPI #10 multiple skin tears of the patient's left arm-wound care consult. #11 hyperlipidemia-patient is on a statin #12 chronic depression-patient is currently on citalopram and Wellbutrin, continue these. #13 chronic congestive heart failure with preserved ejection fraction-patient's Lasix will be held due to his acute renal failure CODE status. Campos Kyle Charges/Coding Visit Charges OBSV E&M: [id number] Initial observation care L3
[2021-07-27 22:28] LABS: Troponin-I HS 113 pg/mL (3.0-78.0)
--- NOTE | 2021-07-27 22:40 | ECHOCS_ITS ---
Version 2 Reason For Study: Arrhythmia Procedure This was a 2D Doppler, Color Flow transthoracic echocardiogram. The study was technically difficult. Exam performed portable in patient room. Left Ventricle Normal LV size. Left ventricular systolic function is normal. The estimated ejection fraction is 55 %. No regional wall motion abnormalities noted. Right Ventricle Normal RV size. Normal systolic function. Atria Normal left atrium. Normal right atrium. Mitral Valve Normal mitral valve. Tricuspid Valve Normal tricuspid valve. Mild (1+) tricuspid valve insufficiency. Pulmonary artery systolic pressure is 27 mmHg. Aortic Valve Trisinus/trileaflet aortic valve. Pulmonic Valve Normal pulmonic valve. Great Vessels Normal aortic root. The pulmonary artery is normal size. Normal inferior vena cava. Pericardium/Pleural No pericardial effusion. Medication Diluted definity 2.5ml given slow IV push to enhance endocardial definition. MMode/2D Measurements & Calculations LVIDd: 4.7 cm IVSd: 0.92 cm Ao root diam: 3.0 cm LVIDs: 3.5 cm LVPWd: 1.1 cm LA dimension: 2.9 cm FS: 24.6 % Doppler Measurements & Calculations MV E max carl: 59.0 cm/sec Lat Peak E' Carl: 10.5 cm/sec Med Peak E' Carl: 8.0 cm/sec MV A max carl: 59.0 cm/sec E/E' lat: 5.6 E/E' med: 7.4 MV E/A: 1.0 Ao V2 max: 100.0 cm/sec LV V1 max: 72.4 cm/sec PA V2 max: 104.8 cm/sec Ao max P.0 mmHg LV V1 max P.1 mmHg TR max carl: 243.5 cm/sec TR max P.7 mmHg ECHO/Echo Complete W/ Contrast Interpretation Summary Normal LV size. Left ventricular systolic function is normal. The estimated ejection fraction is 55 %. Pulmonary artery systolic pressure is 27 mmHg. Contrast injection was performed. The study was technically limited. Ordering Physician: Campos Kyle Referring Physician: Rodney Fontenot Performed By: Jaqueline Torres RDCS
--- NOTE | 2021-07-27 22:55 | EKG12_ITS ---
Test Reason : CP ADMIT Blood Pressure : / mmHG Vent. Rate : 097 BPM Atrial Rate : 097 BPM P-R Int : 104 ms QRS Dur : 088 ms QT Int : 350 ms P-R-T Axes : 079 -08 -87 degrees QTc Int : 444 ms Sinus rhythm with short OH Low voltage QRS ST & T wave abnormality, consider anterolateral ischemia Abnormal ECG Confirmed by CRISTA VENEGAS, STEVE ([id number]), mapping editor MORGAN JOSEPH ([id number]) on 07/29/2021 10:00:59 AM Referred By: JUAN A Confirmed By:STEVE TOBIN MD
[2021-07-28] VITALS (18 sets, daily range): BP systolic 117–154; BP diastolic 64–72; PULSE 78–102; RESP 12–20; TEMP 36.1–36.9; O2SAT 93–99
[2021-07-28] MEDS: 0.9% Saline Lock 10 ML Syringe IV ×2 (00:25→05:11)
[2021-07-28] MEDS: Metoprolol Tartrate 5 MG/5 ML Vial IV ×2 (00:25→05:08)
[2021-07-28] MEDS: Sodium Chloride 0.65% 1 SPRAY SPRAY.BTL 2 SPRAY NASAL ×2 (00:52→06:45)
[2021-07-28] MEDS: Albuterol 2.5 MG/3 ML VIAL.NEB. INHALATION ×2 (00:56→05:33)
[2021-07-28 05:19] LABS: Absolute Lymphocyte Count 1.42 X10^3/uL (0.83-4.51); Absolute Neutrophil Count 8.6 X10^3/uL (2.0-7.7); Basophil# 0.02 X10^3/uL; Basophil% 0.2 % (0-1); Hematocrit 31.6 % (40-54); Lymphocyte # 1.42 X10^3/ul (0.83-4.51); Lymphocyte % 11.8 % (19-41); Mean Corp Hgb Conc 31.6 g/dL (32-36); Mean Corpuscular Hgb 27.1 pg (27.0-32.0); Mean Corpuscular Volume 85.6 fL (80-94); Mean Platelet Vol. 9.8 fl (6.2-12.0); Monocyte% 15.8 % (0-10); NRBC Flagged by Analyzer 0 % (0-5); Neutrophil # 8.64 X10^3/uL (2.7-7.7); Neutrophil % 71.6 % (47-70); POSITIVE DIFFERENTIAL YES; Platelet Count 580 K/mm3 (150-450); RBC Distribution Width SD 47.2 fl (35.1-43.9); Red Blood Count 3.69 M/mm3 (4.6-6.2); White Blood Count 12.1 K/mm3 (4.4-11.0)
[2021-07-28 05:23] LABS: Differential Indicated SCAN CRITERIA MET
[2021-07-28 05:35] LABS: Prothrombin Time (Protime)PT. 22.2 SECONDS (11.7-14.9)
[2021-07-28 05:43] LABS: Anisocytosis 1+
[2021-07-28 05:48] LABS: Anion Gap 7 (5-15); BUN 26 mg/dL (7-18); BUN/Creat Ratio 21.5 RATIO (10-20); Calcium,Total 8.7 mg/dL (8.5-10.1); Chloride 102 mmol/L (98-107); Creatinine, Serum 1.21 mg/dL (0.70-1.30); EST Glomerular Filtration Rate 63 mL/min (>60); Est Glom Filt Rate - Afr Amer 76 mL/min (>60); Estimated Creatinine Clearance 40.82 ml/min; Glucose 94 mg/dL (74-106); Sodium Level 133 mmol/L (136-145); Troponin-I HS 110 pg/mL (3.0-78.0)
[2021-07-28] MEDS: Ipratropium/Albuterol Sulfate 3 ML AMPUL.NEB INHALATION ×3 (06:59→19:08)
[2021-07-28] MEDS: Budesonide Respules 0.5 MG/2 ML AMPUL.NEB. INHALATION ×2 (06:59→19:08)
--- NOTE | 2021-07-28 09:18 | CON.PCM.CA_ITS ---
Assessment & Plan Assessment/Plan (1) Ventricular tachycardia: PLAN: The patient appears to have an episode of wide-complex tachycardia. Based upon the EMS recording it is concerning for sustained ventricular tachycardia. The patient underwent evaluation care by EMS with synchronized biphasic DC cardioversion with 50 J x 1 (per the [facility] ED report). The patient has been remaining in sinus rhythm. The wide-complex rhythm does raise concerns as to whether or not he has had a change in his underlying CAD/graft vessel status, change in his LV wall motion or systolic function, versus being a primary cardiac dysrhythmia. Also there may be concerns as to his rhythm relationship to his antiarrhythmic with respect to the sotalol/Betapace. At the moment he will continue noninvasive evaluation with a transthoracic echocardiogram to reassess his left ventricular wall motion and systolic func tion. Ideally he should be considered for reevaluation with diagnostic cardiac catheterization to reassess his coronary/graft anatomy-once his anticoagulation status as deemed appropriate. He will continue medical therapy with beta-blockers. He may need to be considered for switching from sotalol/Betapace therapy to amiodarone therapy unless otherwise contraindicated. He may also need to be reassessed by electrophysiology for the need for ICD placement. (2) Non-ST elevation (NSTEMI) myocardial infarction: PLAN: The patient does have abnormal cardiac enzymes. This may be a type II event secondary to his cardiac dysrhythmia and subsequent cardioversion event. He will continue to be monitored. He will continue his evaluation as noted above. (3) Atherosclerosis of coronary artery of [place] heart without angina pectoris: QUALIFIERS: Coronary Disease-Associated Artery/Lesion type: [place] artery Qualified Code(s): I25.10 - Atherosclerotic heart disease of [place] coronary artery without angina pectoris PLAN: The patient does have underlying CAD. His most recent noninvasive and invasive studies are noted. He will continue medical therapy and reevaluation as deemed appropriate. (4) H/O coronary artery bypass surgery: PLAN: Based upon the patient's most recent cardiac catheterization both his bypass grafts were patent. Again based upon his current event he should be considered for reassessment of his coronary/graft anatomy. In the interim he will continue medical management. (5) Paroxysmal atrial fibrillation: PLAN: He appears to be remaining in sinus rhythm at this time. His anticoagulation therapy is on hold pending the need for future invasive cardiovascular evaluation. (6) (HFpEF) heart failure with preserved ejection fraction: PLAN: He does not appear to have acute on chronic CHF at this time. He will continue medical management. His left ventricle can be reassessed with a transthoracic echocardiogram. (7) Hyperlipidemia: QUALIFIERS: Hyperlipidemia type: unspecified Qualified Code(s): E78.5 - Hyperlipidemia, unspecified PLAN: He should continue risk factor evaluation care as deemed appropriate. (8) Essential (primary) hypertension: PLAN: His blood pressure will be monitored with medicines adjusted accordingly. (9) COPD (chronic obstructive pulmonary disease): PLAN: He does have chronic underlying COPD. He will need continued evaluation care per internal medicine. Addt'l Comments The patient's case has been previously discussed with the patient, Dr. Shields of the [facility] emergency department staff, and with his primary holter technician Dr. Owusu. This note was generated using a voice recognition system and there may be incorrect words, spelling or punctuation that were not noted when reviewing the office note prior to saving. HPI Consult Data Date of Consult: 07/28/21 HPI Narrative HPI Narrative: KAMILLA DICKSON, is a 70 year old white male who presents for vascular consultation based upon concerns of chest discomfort, shortness of breath, diaphoresis, palpitations, subsequent findings of wide-complex tachycardia requiring EMS synchronized biphasic DC cardioversion to regain sinus rhythm, superimposed upon a history of underlying CAD, CABG, ischemic mediated cardiomyopathy, paroxysmal atrial fibrillation, carotid artery disease, hyperlipidemia, hypertension, COPD, and CVA presently recuperating from a mechanical fall at an extended care facility. The patient states that yesterday while at the extended care facility he noted his symptoms. He states he summoned the [facility] nursing staff. However, according to the patient, after approximately 45 minutes he did not have any nursing staff support. Thus he contacted the EMS system to come to the [facility] to evaluate him. He states following that the [facility] medical staff did assess him and subsequently allowed the EMS to assess him. He was then placed in the EMS vehicle to be transported to [facility] for further evaluation and care. He notes while he was in the EMS vehicle the EMS staff subsequently performed a cardioversion in an attempt to restore his cardiac rhythm. He notes after his cardiac rhythm was restored to sinus rhythm his symptoms dissipated. He was subsequently evaluated in the [facility] emergency department staff. He was initially noted to have a negative troponin I level, which now status post evaluation has subsequently increased, and an ECG that demonstrated sinus rhythm with a short AK interval with low voltage QRS and nonspecific ST and T wave changes. A chest x-ray was performed which per radiology demonstrated no acute cardiopulmonary disease process. He was subsequently brought into the PCU for further evaluation and care with request for cardiovascular consultation. The patient states he has underlying chronic pulmonary disease. He states he has a somewhat chronic productive cough. However, he states he has not had any episodes of acute orthopnea or PND or ongoing peripheral pitting edema. He does not recall any near-syncope or syncope. [facility] Medical History (Updated 07/28/21 @ 09:[address] Rodney Noe MD) (HFpEF) heart failure with preserved ejection fraction ACC/AHA stage B congestive heart failure due to ischemic cardiomyopathy Anemia Asthma Asthma-COPD overlap syndrome Atherosclerosis of coronary artery of [place] heart without angina pectoris Atrial fibrillation Atrial fibrillation with rapid ventricular response (03/11/21) Benign prostatic hypertrophy Chronic pain Chronic respiratory failure Closed head injury Congestive heart failure (CHF) COPD (chronic obstructive pulmonary disease) Coronary artery disease CVA (cerebral vascular accident) (05/29/18) DDD (degenerative disc disease) Difficulty chewing Difficulty swallowing Dyspnea Essential (primary) hypertension Former smoker Hearing loss, left Hearing loss, right HFrEF (heart failure with reduced ejection fraction) High cholesterol Hyperlipidemia Hypertension Irregular heart beat Ischemic cardiomyopathy Kidney disease Laceration of scalp Left carotid artery stenosis Multiple falls Myocardial infarct Myoclonic jerking Nicotine dependence in remission Nicotine dependence, cigarettes, uncomplicated Nocturnal hypoxemia Non-ST elevation (NSTEMI) myocardial infarction On home oxygen therapy Osteoarthritis Osteoporosis Paroxysmal atrial fibrillation (2008) Peripheral vascular occlusive disease Rheumatoid arthritis Severe persistent asthma Smoking greater than 40 pack years Stage 3 chronic kidney disease Vision loss of left eye Vision loss of right eye Home Medications allopurinol 100 mg PO DAILY 07/17/20 [History Last Taken 06/16/21] ymoorggm-dlw-SH-lycopen-lutein 1 tab PO DAILY 07/17/20 [History Last Taken 06/16/21] atorvastatin 80 mg tablet 80 mg PO DAILY tab 09/17/20 [History Last Taken 06/15/21] bupropion HCl (smoking deter) 150 mg tablet,12 hr sustained-release(smoking deterrent) 150 mg PO BID tab 09/17/20 [History Last Taken 06/16/21] icosapent ethyl 1 gram capsule 2 g PO BID cap 09/17/20 [History Last Taken 06/16/21] pregabalin 75 mg capsule 75 mg PO BID PRN cap 09/17/20 [History Last Taken 06/16/21] albuterol sulfate 90 mcg/actuation aerosol inhaler 2 puff INHALATION Q4H PRN #8.5 g 12/22/20 [Rx Last Taken 01/15/21] citalopram 10 mg PO DAILY 06/16/21 [History Last Taken 06/16/21] clopidogrel 75 mg PO DAILY 06/16/21 [History Last Taken 06/16/21] omeprazole 20 mg PO DAILY 06/16/21 [History Last Taken 06/16/21] Eliquis 2.5 mg PO BID #0 tab 06/18/21 [Rx Last Taken 06/16/21] Entresto 1 tab PO DAILY #0 tab 06/18/21 [Rx Last Taken 06/16/21] Mucus Relief ER 1,200 mg PO BID #14 tab 06/18/21 [Rx Last Taken Unknown] baclofen 10 mg PO TID PRN #0 tab 06/18/21 [Rx Last Taken 06/16/21] metoprolol succinate 12.5 mg PO DAILY #0 tab 06/18/21 [Rx Last Taken 06/16/21] sennosides-docusate sodium [Stool Softener-Stimulant Laxat] 2 tab PO BID PRN PRN #0 tab 06/18/21 [Rx Last Taken Unknown] fluticasone fur. 200 mcg-umeclid 62.5 mcg-vilant 25 mcg inhalat.powder 1 inh INHALATION DAILY #60 ea 07/01/21 [Rx Last Taken Unknown] galantamine 16 mg 24 hr capsule,extended release 16 mg PO QAM #30 cap 07/01/21 [Rx Last Taken Unknown] galantamine 8 mg 24 hr capsule,extended release 8 mg PO QAM #30 cap 07/01/21 [Rx Last Taken Unknown] sotalol 80 mg tablet 80 mg PO BID #60 tab 07/19/21 [Rx Last Taken Unknown] acetaminophen [Tylenol] 650 mg PO Q6H PRN PRN #0 tab 07/24/21 [Rx Last Taken Unknown] nystatin [Nyamyc] 1 applic TOPICAL TID #0 g 07/24/21 [Rx Last Taken Unknown] Allergy/AdvReac Type Severity Reaction Status Date / Time No Known Allergies Allergy Verified 07/27/21 19:00 Family History Father Colon cancer Surgical History H/O coronary artery bypass surgery (01/17/14) History of carpal tunnel release History of electrophysiologic study (03/15/21) History of left heart catheterization (03/12/21) History of radiofrequency ablation procedure for cardiac arrhythmia (01/17/14) Social History household members: other housing: apartment current occupational status: employed pets and animals: No Smoking Status: Former smoker quit date: 05/22/20 Tobacco: How many years used: 52 Electronic Cigarette Use: not used second hand exposure: Yes alcohol intake: never substance use type: does not use ROS Constitutional Constitutional: Reports as per HPI Eyes Eyes: Reports as per HPI ENT HEENT: Reports as per HPI Cardiovascular Cardiovascular: Reports chest pain, diaphoresis, dyspnea and palpitations Respiratory/Chest Respiratory/Chest: Reports dyspnea Gastrointestinal Gastrointestinal: Reports as per HPI Genitourinary Genitourinary: Reports as per HPI Musculoskeletal Musculoskeletal: Reports as per HPI Integumentary Integumentary: Reports as per HPI Neurologic Neurologic: Reports as per HPI Physical Exam Const alert, oriented x3 and no apparent distress Orientation / Consciousness: awake HEENT normocephalic Eyes PERRL, EOMs intact bilaterally and conjunctivae normal Neck supple and no JVD Resp Auscultation: rhonchi throughout Cardio regular rate, regular rhythm, S1 normal heart sound and S2 normal heart sound GI normal to inspection, nondistended, normoactive bowel sounds Extremity no pedal edema Skin Skin Narrative: Left upper extremity: Bandaged Neuro oriented x3 and moves all extremities Psych mental status grossly normal Risk Stratification Risk Stratification Applicable: Yes Age >/= 65: Yes >/= 3 CAD Risk Factors (HTN, HLD, DM, family hx of CAD, or current smoker): Yes Aspirin Use in the Past 7 Days: Yes Severe Angina (>/= episodes in 24 hours): Yes EKG ST Changes >/= 0.5mm: No Positive Cardiac Marker: Yes SHAYAN Risk Stratification Score: 5 SHAYAN % Risk: 25% Risk Objective Data Vital Signs: Vital Signs Temp Pulse Resp BP Pulse Ox 96.9 F L 92 16 125/64 H 94 07/28/21 09:12 07/28/21 09:12 07/28/21 09:12 07/28/21 09:12 07/28/21 09:12 Oxygen Flow Rate (L/min) 3 Oxygen Delivery Method Nasal Cannula Weight: 135 lb 5.821 oz Body Mass Index (BMI) 25.5 Intake & Output: Intake and Output for Last 24 Hours 07/26/21 07/27/21 07/28/21 23:59 23:59 23:59 Intake Total 0 / 0 Balance 0 / 0 Lab / Micro Data Result Diagrams: 07/28/21 05:04 07/28/21 05:04 Labs: Laboratory Results - last 24 hr 07/27/21 19:12: WBC 11.7 H, RBC 4.17 L, Hgb 11.7 L, Hct 35.5 L, MCV 85.1, MCH 28.1, MCHC 33.0, RDW Std Deviation 47.1 H, RDW Coeff of Sujata 16.0 H, Plt Count 703 H, MPV 10.7, Immature Gran % (Auto) 0.900, Neut % (Auto) 76.4 H, Lymph % (Auto) 14.5 L, Marshall % (Auto) 8.1, Eos % (Auto) 0.0, Baso % (Auto) 0.1, Absolute Neuts (auto) 8.9 H, Absolute Lymphs (auto) 1.69, Nucleated RBC % 0 07/27/21 19:12: Sodium Cancelled, Potassium Cancelled, Chloride Cancelled, Carbon Dioxide Cancelled, Anion Gap Cancelled, BUN Cancelled, Creatinine Cancelled, Estim Creat Clear Calc Cancelled, Est GFR (MDRD) Af Amer Cancelled, Est GFR (MDRD) Non-Af Cancelled, BUN/Creatinine Ratio Cancelled, Glucose Cancelled, Calcium Cancelled, Magnesium Cancelled, Troponin I High Sens Cancelled 07/27/21 19:41: Sodium 132 L, Potassium 4.1, Chloride 98, Carbon Dioxide 24.0, Anion Gap 10, BUN 18, Creatinine 1.20, Estim Creat Clear Calc 41.16, Est GFR (MDRD) Af Amer 76, Est GFR (MDRD) Non-Af 63, BUN/Creatinine Ratio 15.0, Glucose 144 H, Calcium 9.5, Magnesium 1.8, Troponin I High Sens 67 07/27/21 22:00: Troponin I High Sens 113 H 07/28/21 05:04: Sodium 133 L, Potassium 4.0, Chloride 102, Carbon Dioxide 24.0, Anion Gap 7, BUN 26 H, Creatinine 1.21, Estim Creat Clear Calc 40.82, Est GFR (MDRD) Af Amer 76, Est GFR (MDRD) Non-Af 63, BUN/Creatinine Ratio 21.5 H, Glucose 94, Calcium 8.7, Magnesium 2.0, Troponin I High Sens 110 H 07/28/21 05:04: WBC 12.1 H, RBC 3.69 L, Hgb 10.0 L, Hct 31.6 L, MCV 85.6, MCH 27.1, MCHC 31.6 L, RDW Std Deviation 47.2 H, RDW Coeff of Sujata 15.0 H, Plt Count 580 H, MPV 9.8, Immature Gran % (Auto) 0.600, Neut % (Auto) 71.6 H, Lymph % (Auto) 11.8 L, Marshall % (Auto) 15.8 H, Eos % (Auto) 0.0, Baso % (Auto) 0.2, Absolute Neuts (auto) 8.6 H, Absolute Lymphs (auto) 1.42, Nucleated RBC % 0, Diff Path Review May foll, Anisocytosis 1+ 07/28/21 05:04: PT 22.2 H, INR 2.0 Rhythm Strip Rhythm Strip: Sinus Tach Rate: 122 Ectopy: None Cardiology Labs/Tests 07/27/21 19:12: WBC 11.7 H, RBC 4.17 L, Hgb 11.7 L, Hct 35.5 L, MCV 85.1, MCH 28.1, MCHC 33.0, Plt Count 703 H, MPV 10.7, Immature Gran % (Auto) 0.900, Neut % (Auto) 76.4 H, Lymph % (Auto) 14.5 L, Marshall % (Auto) 8.1, Eos % (Auto) 0.0, Baso % (Auto) 0.1, Absolute Neuts (auto) 8.9 H, Nucleated RBC % 0 07/27/21 19:12: Sodium Cancelled, Potassium Cancelled, Chloride Cancelled, Carbon Dioxide Cancelled, Anion Gap Cancelled, BUN Cancelled, Creatinine Cancelled, Est GFR (MDRD) Af Amer Cancelled, Est GFR (MDRD) Non-Af Cancelled, BUN/Creatinine Ratio Cancelled, Glucose Cancelled, Calcium Cancelled, Magnesium Cancelled 07/27/21 19:41: Sodium 132 L, Potassium 4.1, Chloride 98, Carbon Dioxide 24.0, Anion Gap 10, BUN 18, Creatinine 1.20, Est GFR (MDRD) Af Amer 76, Est GFR (MDRD) Non-Af 63, BUN/Creatinine Ratio 15.0, Glucose 144 H, Calcium 9.5, Magnesium 1.8 07/28/21 05:04: Sodium 133 L, Potassium 4.0, Chloride 102, Carbon Dioxide 24.0, Anion Gap 7, BUN 26 H, Creatinine 1.21, Est GFR (MDRD) Af Amer 76, Est GFR (MDRD) Non-Af 63, BUN/Creatinine Ratio 21.5 H, Glucose 94, Calcium 8.7, Magnesium 2.0 07/28/21 05:04: WBC 12.1 H, RBC 3.69 L, Hgb 10.0 L, Hct 31.6 L, MCV 85.6, MCH 27.1, MCHC 31.6 L, Plt Count 580 H, MPV 9.8, Immature Gran % (Auto) 0.600, Neut % (Auto) 71.6 H, Lymph % (Auto) 11.8 L, Marshall % (Auto) 15.8 H, Eos % (Auto) 0.0, Baso % (Auto) 0.2, Absolute Neuts (auto) 8.6 H, Nucleated RBC % 0 07/28/21 05:04: PT 22.2 H, INR 2.0 Rhythm: Sinus rhythm EKG: As noted above ECHO: 01-16-2021 Interpretation Summary Normal LV size. The estimated ejection fraction is 40 %. There is mild global hypokinesis of the left ventricle. Mild (1+) tricuspid valve insufficiency. Pulmonary artery systolic pressure is 36 mmHg. Mild to moderate segmental systolic dysfunction (see wall motion). 03-12-2021: [facility] Left ventricle with an estimated LVEF of 50 to 55% No hemodynamically significant valvular heart disease noted Estimated RV systolic pressure 30 to 35 mmHg No pericardial effusion Stress Test: 01-18-2021 Stress Test Report For oncologic myocardial perfusion stress test. 70-year-old male with a history of chest pain. Stress protocol: Resting EKG demonstrates normal sinus rhythm with a rate of 70 bpm. Resting blood pressure is 124/78 mmHg. 0.4 mg of regadenoson was infused per usual protocol followed by rapid intravenous saline flush injection continuous EKG monitoring was performed. The maximum heart rate attained was 91 bpm which was 61% of max infected heart rate. At rest there were no ST or T wave changes noted to suggest abnormal flow reserve and at peak infusion nonspecific ST ch anges were noted with did not meet the criteria for ischemia. The maximum blood pressure was 124/78 mmHg. Myocardial perfusion protocol. 11.3 mCi of technetium 99m sestamibi was injected at rest. 0.4 mg of regadenoson was infused per usual protocol. At peak infusion 31.8 mCi of technetium 99m sestamibi was injected stress images were obtained stress and rest images were reconstructed and compared in the short axis vertical long and horizontal long axis. Gated images were also obtained to Perfusion SPECT analysis: Review of the stress images demonstrate normal uptake of tracer noted in all areas of the myocardium. The resting images similarly demonstrate normal uptake of tracer noted in all areas of the myocardium. No obvious areas of reversibility are noted to suggest ischemia. Gated SPECT analysis: The gated ejection fraction is noted to be 40%. Conclusion: Mild cardiomyopathy. No ischemic defects noted. Cardiac Cath: 03-12-2021: [facility] Left main: Very short left main-essential LAD and LCx have separate ostia LAD: Ostial 90% stenosis; proximal 70% stenosis; mid 30% stenosis; mid to distal 70% stenosed just prior to OCAMPO anastomosis LCx: Ostial 30% stenosis; proximal 50% stenosed; distal 20% stenosed First OM: 30% stenosed Left PDA: Mild diffuse disease and 50% stenosis RCA: Calcified; proximal 80% stenosis; mid 95% stenosed; mid 100% stenosed OCAMPO to the LAD: Patent with mid 50% stenosis SVG to the distal RCA: Patent with proximal 20% stenosis and mid 20% stenosis LVEDP pressure reported as normal PCI: CT Surgery: 01-17-2014: [facility] OCAMPO to the LAD SVG to the RCA Ligation of the left atrial appendage with a left atrial clip Pulmonary vein isolation with radiofrequency ablation Holter monitor: EPS: 03-15-2021: [facility] issue Conclusion: Baseline rhythm is sinus rhythm Normal sinus node function Normal AV node function Normal infranodal conduction No evidence of accessory pathway No evidence of dual AV node physiology VA conduction present and is decremental No inducible SVT or VT Radiography Diagnostic Testing: Radiology Impression Chest X-Ray 07/27/21 19:30 IMPRESSION: No acute radiographic abnormalities. Bibasilar atelectasis. Electronically Signed: Shan Marion MD at 20:42 EDT ,
[2021-07-28] MEDS: SACUBITRIL/VALSARTAN 97-103 MG TABLET 1 EACH PO (09:22)
[2021-07-28] MEDS: Clopidogrel Bisulfate 75 MG Tablet PO (09:22)
[2021-07-28] MEDS: Allopurinol 100 MG Tablet PO (09:22)
[2021-07-28] MEDS: Citalopram 10 MG Tablet PO (09:22)
[2021-07-28] MEDS: buPROPion (SR) 150 MG Tablet.SA PO ×2 (09:22→21:35)
[2021-07-28] MEDS: Pantoprazole Sodium 20 MG Tablet PO (09:22)
[2021-07-28] MEDS: Galantamine Hydrobromide 4 MG Tablet PO ×2 (09:22→17:04)
--- NOTE | 2021-07-28 10:21 | WOUNDNOTE ---
wound photo: left arm
--- NOTE | 2021-07-28 10:22 | WOUNDNOTE ---
wound photo: forehead
--- NOTE | 2021-07-28 11:56 | CHAPLAIN ---
Type of Pastoral Visit _x__ Initial Visit ___ Follow-up Visit ___ On-call Visit ___ General Patient Visit ___ Spiritual Assessment ___ Family Conference ___ Bereavement ___ Rapid Response ___ Code Blue ___ Other (describe below) Pastoral Care Referral From _x__ Patient ___ Family ___ Nurse ___ Physician ___ Manager Acquisition ___ Cooler Servicer ___ Other (describe below) Sacrament/Intervention _x__ Active listening ___ Anointing ___ Restorationist ___ Bereavement ___ Communion _x__ Kylie exploration ___ ___ Life review _x__ Prayer ___ Reconciliation ___ Sacrament of Sick __x_ Supportive presence ___ Wedding ___ Other (describe below) Pastoral Comments patient has been seen before in previous admissions and has usually requested spiritual care support; pt gives update on his most recent health need and the probable transfer to [facility]; pt is accepting of his condition but also wants to gain strength and walk again; pt speaks of his spiritual status and welcomes prayer and presence
[2021-07-28] MEDS: Metoprolol(XL)Succ 25 MG Tablet PO (12:13)
--- NOTE | 2021-07-28 13:09 | PCM.PN.HOSP ---
Subjective Subjective Patient seen and examined. He had no complaints today and felt well. He had an uneventful night and review of systems otherwise negative. He has had 2D echo today. Objective Data Objective Data Vital Signs: Vital Signs Temp Pulse Resp BP Pulse Ox 96.9 F L 96 20 H 125/64 H 95 07/28/21 09:12 07/28/21 12:19 07/28/21 12:05 07/28/21 09:12 07/28/21 10:00 Oxygen Flow Rate (L/min) 3 Oxygen Delivery Method Nasal Cannula Weight: 135 lb 5.821 oz Body Mass Index (BMI) 25.5 Intake & Output: Intake and Output for Last 24 Hours 07/26/21 07/27/21 07/28/21 23:59 23:59 23:59 Intake Total 0 / 0 Output Total 100 / 100 Balance -100 / -100 Medical Nutrition Assessment Dietitian: Malnutrition Criteria Met Start: 07/28/21 11:53 Freq: Status: Active Protocol: Document 07/28/21 11:53 AG (Rec: 07/28/21 11:53 [id number]) Nutrition Malnutrition Evidence of Malnutrition Exists Yes Malnutrition (severe): Chronic Evidenced By Suboptimal Energy Intake ( Severe),Weight Loss (Severe) Clinical Problem Chronic Disease or Condition Related Malnutrition Etiology severe, chronic malnutrition r /t inadequate energy intake w/ ongoing hospitalizations, dysphagia Signs/Symptoms as evidenced by estimated PO intake meeting <75% of estimated energy needs x2 months, unintentional wt loss of 20.5#/13% <2 months Status Active Problem Recommendation Dietitian Recommendations/Changes recommend cardiac diet- texture/consistency per [employer]; recommend 120mL ensure enlive 4x/day w/ medpass when PO diet resumed given evidence of malnutrition Lab / Micro Data Result Diagrams: 07/28/21 05:04 07/28/21 05:04 Labs: Laboratory Results - last 24 hr 07/27/21 19:12: WBC 11.7 H, RBC 4.17 L, Hgb 11.7 L, Hct 35.5 L, MCV 85.1, MCH 28.1, MCHC 33.0, RDW Std Deviation 47.1 H, RDW Coeff of Sujata 16.0 H, Plt Count 703 H, MPV 10.7, Immature Gran % (Auto) 0.900, Neut % (Auto) 76.4 H, Lymph % (Auto) 14.5 L, [place] % (Auto) 8.1, Eos % (Auto) 0.0, Baso % (Auto) 0.1, Absolute Neuts (auto) 8.9 H, Absolute Lymphs (auto) 1.69, Nucleated RBC % 0 07/27/21 19:12: Sodium Cancelled, Potassium Cancelled, Chloride Cancelled, Carbon Dioxide Cancelled, Anion Gap Cancelled, BUN Cancelled, Creatinine Cancelled, Estim Creat Clear Calc Cancelled, Est GFR (MDRD) Af Amer Cancelled, Est GFR (MDRD) Non-Af Cancelled, BUN/Creatinine Ratio Cancelled, Glucose Cancelled, Calcium Cancelled, Magnesium Cancelled, Troponin I High Sens Cancelled 07/27/21 19:41: Sodium 132 L, Potassium 4.1, Chloride 98, Carbon Dioxide 24.0, Anion Gap 10, BUN 18, Creatinine 1.20, Estim Creat Clear Calc 41.16, Est GFR (MDRD) Af Amer 76, Est GFR (MDRD) Non-Af 63, BUN/Creatinine Ratio 15.0, Glucose 144 H, Calcium 9.5, Magnesium 1.8, Troponin I High Sens 67 07/27/21 22:00: Troponin I High Sens 113 H 07/28/21 05:04: Sodium 133 L, Potassium 4.0, Chloride 102, Carbon Dioxide 24.0, Anion Gap 7, BUN 26 H, Creatinine 1.21, Estim Creat Clear Calc 40.82, Est GFR (MDRD) Af Amer 76, Est GFR (MDRD) Non-Af 63, BUN/Creatinine Ratio 21.5 H, Glucose 94, Calcium 8.7, Magnesium 2.0, Troponin I High Sens 110 H 07/28/21 05:04: WBC 12.1 H, RBC 3.69 L, Hgb 10.0 L, Hct 31.6 L, MCV 85.6, MCH 27.1, MCHC 31.6 L, RDW Std Deviation 47.2 H, RDW Coeff of Sujata 15.0 H, Plt Count 580 H, MPV 9.8, Immature Gran % (Auto) 0.600, Neut % (Auto) 71.6 H, Lymph % (Auto) 11.8 L, [place] % (Auto) 15.8 H, Eos % (Auto) 0.0, Baso % (Auto) 0.2, Absolute Neuts (auto) 8.6 H, Absolute Lymphs (auto) 1.42, Nucleated RBC % 0, Diff Path Review May foll, Anisocytosis 1+ 07/28/21 05:04: PT 22.2 H, INR 2.0 Radiography Diagnostic Testing: Radiology Impression Chest X-Ray 07/27/21 19:30 IMPRESSION: No acute radiographic abnormalities. Bibasilar atelectasis. Electronically Signed: Shan Marion MD at 20:42 EDT , Rhythm Strip Rhythm Strip: Sinus Tach Rate: 122 Ectopy: None Physical Exam Const alert, oriented x3 and no apparent distress Exam Limitations: no limitations HEENT head/scalp atraumatic and moist oral mucous membranes Eyes PERRL and EOMs intact bilaterally Neck no lymphadenopathy Resp normal respiratory effort, no retractions and no use of accessory muscles Cardio regular rate, regular rhythm, S1 normal heart sound, S2 normal heart sound and no murmurs GI normal to inspection, nondistended, normoactive bowel sounds and soft to palpation Extremity normal to inspection, full ROM and no clubbing, cyanosis or edema Peripheral Pulses: Yes pulses 2+ throughout Skin Skin Narrative: resolving bruise over his forehead due to mechanical fall Neuro oriented x3, CN's II-XII intact bilaterally and moves all extremities Sensorium / Orientation: awake and alert Psych affect normal Assessment & Plan Assessment/Plan (1) Non-ST elevation (NSTEMI) myocardial infarction: PLAN: #Nonstemi cardiology on board initial troponin was 118, and trended upwards had 2D echo today; read is peding per cardiology, to transfer patient to [facility] where he was evaluated with a heart cath in March 2021 for Vtach. awaiting transfer to [facility] #History of vtach sotalol on hold on eliquis. cardiology on board. 2D echo pending #History of ischemic cardiomyopathy On Entresto 2D echo done today. Read is pending #Chronic hypoxic respiratory failure: On 3 L of oxygen at home. This is due to COPD. Titrate oxygen to maintain saturation above 90%. #Paroxysmal A. fib: On Eliquis and metoprolol. Sotalol on hold #History of polyneuropathy: On Lyrica. #GERD: On PPI #Hyperlipidemia: On statin #Chronic depression: Citalopram and Wellbutrin DVT prophylaxis: on eliquis Disposition; accepted by Dr Chamorro (EP) at [facility]. Awaiting bed. Charges/Coding Visit Charges Inpatient E&M: 14377 [facility] L3
[2021-07-28 13:29] LABS: Pathologist Review Reviewed
--- NOTE | 2021-07-28 15:13 | CASEMGMT ---
Patient came to [facility] from [facility]. Patient is supposed to be transferred to [facility]. will follow. Sandy SHARP
--- NOTE | 2021-07-28 15:25 | ST.MBS ---
Modified Barium Swallow - Patient Information Study Date: 07/28/21 Study Time: 13:00 Direct Billable Minutes: 120 Total Minutes procedure & reportin Diagnosis: COPD (J44.9), CVA (2019) (I63.9) Referring Physician: Marnie Nguyen Reason for Referral: Objectively assess swallow function, risk for aspiration, and determine recommendations for least restrictive diet textures and compensatory strategies to improve safety of swallow. Medical History: The patient is a 70-year-old male with extensive PMH including CVA (2019), COPD, HTN, CHF, severe asthma, multiple falls (SEE H&P for full history) who was recently hospitalized 07/21/2021 for multiple falls and recommended for minced and moist textures / thin liquids with downgrade to minced and moist textures / mildly thick liquids. He was discharged to SNF 07/24/2021 and returned to [facility] 07/27/21 with chest pain and arrythmia. He failed RN dysphagia screen and was recommended NPO. SILO MAN evaluated pt at bedside recommending he remain NPO with sips & chips permitted with plan for participation in MBS study prior to diet advancement. History of mild oropharyngeal dysphagia. MBS study completed 06/07/2018 with the following recommendations: soft textured, thin liquid diet. Will recommend reduced bolus volume, reduced rate of intake, and seated upright at 90 degrees during PO intake. Current Diet Ordered: NPO, sips & chips permitted Dentition: Edentulous Mental Status: WNL Respiratory Status: Oxygenating on 3L/M nasal cannula - Penetration-Aspiration Scale Penetration-Aspiration Scale: OBJECTIVE ASSESSMENT OF SWALLOW FUNCTION (QUANTITATIVE ? PER TRIAL): PENETRATION / ASPIRATION SCALE (FLORES): 1 = does not enter airway 2 = enters airway/above vocal folds/ejected 3 = enters airway/above vocal folds/not ejected 4 = enters airway/contacts vocal folds/ejected 5 = enters airway/contacts vocal folds/not ejected 6 = enters airway/below vocal folds/ejected 7 = enters airway/below vocal folds/not ejected despite effort 8 = enters airway/below vocal folds/no effort VIDEOFLOROSCOPIC SCALE SCORE (FLORES): Grade I = aspiration of material that has penetrated into the laryngeal vestibule, intact cough reflex Grade II = aspiration < 10 % of the bolus, intact cough reflex Grade III = aspiration of < 10 % of the bolus, reduced cough reflex or aspiration of > 10 % of the bolus, intact cough reflex Grade IV = aspiration of > 10 % of the bolus, reduced cough reflex - Penetration-Aspiration Scale Score Thin Liquid via teaspoon Result: 2= enter airway/above vocal folds/ejected Thin Liquid via teaspoon Trial 2 Result: 1= does not enter airway Thin Liquid via small single sip from cup Comment: Unable to score, pt lunged forward in chair stating he thought something was falling. Thin Liquid via small single sip from cup Trial 2 Result: 3= enters airways/above vocal folds/not ejected [place] Thick Liquid via small single sip from cup Result: 1= does not enter airway Honey Thick Liquid via small single sip from cup Result: 1= does not enter airway Pudding via teaspoon Result: 1= does not enter airway 1/4 Cookie Result: 1= does not enter airway Thin Liquid via small single sip from cup Trial 3 Result: 7= enters airways/below vocal folds/not ejected despite effort Thin Liquid via single sip from straw Result: 2= enter airway/above vocal folds/ejected Thin Liquid via small single sip from cup Effortful swallow Result: 1= does not enter airway Thin Liquid via small single sip from cup Effortful swallow Trial 2 Result: 3= enters airways/above vocal folds/not ejected Thin Liquid via small single sip from cup Effortful swallow Trial 3 Result: 3= enters airways/above vocal folds/not ejected Thin Liquid via teaspoon Trial 3 Result: 1= does not enter airway [place] Thick Liquid via teaspoon Result: 1= does not enter airway [place] Thick Liquid via small single sip from cup Trial 2 Result: 1= does not enter airway Thin Liquid via small single sip from cup Chin tuck Result: 3= enters airways/above vocal folds/not ejected - Oral Phase Labial Seal: No Labial Escape Tongue Control During Bolus Hold: Posterior escape of greater than half of bolus Bolus Preparation/Mastication: Minimal chewing/mashing with majority of bolus unchewed Bolus Transport/Lingual Motion: Slowed tongue motion Oral Residue: Majority of bolus remaining - 1/4 Susu [place] cookie - Pharyngeal Phase Initiation of Pharyngeal Swallow: Bolus head in pyriforms Anterior Hyoid Excursion: Partial anterior movement Epiglottic Movement: Partial inversion Laryngeal Vestibule Closure at Height of Swallow: None; wide column of air/contrast in laryngeal vestibule - Wide column of contrast observed in laryngeal vestibule during the swallow on thin liquid trial resulting in aspiration. Pharyngeal Stripping Wave: Present - diminished Pharyngoesophageal Segment Opening: Parital distension and partial duration; parital obstruction of flow Tongue Base Retraction: Narrow column of contrast between tongue base & post. pharyngeal wall Pharyngeal Residue: Collection of residue within or on pharyngeal structures - Esophageal Phase Esophageal Clearance: Esophageal retention - Treatment Strategies Effects of treatment strategies attemped:: Effortful swallow = Not effective. Chin tuck = Not effective. Decreased bolus size = Effective. Multiple swallows = Effective. - Diagnosis/Impression Diagnosis: Moderate oropharyngeal phase dysphagia (R13.12) Impression: The oral phase is marked by severe mastication insufficiency. He demonstrated prolonged chewing with majority of cookie bolus unchewed and in the oral cavity after the swallow was completed. He demonstrated poor bolus control with posterior loss of thin liquid trials to the pyriforms resulting in suboptimal bolus placement upon swallow onset. The pharyngeal phase is marked by decreased airway closure and UES opening/duration. He has decreased anterior hyoid excursion and laryngeal elevation. The patient has moderate-severe pharyngeal residues after the initial swallow, which improves to mild-moderate pharyngeal residues after multiple swallows. He is at increased risk to aspirate after the swallow due to pharyngeal residue. The patient demonstrated laryngeal penetration of thin liquid sips above the vocal folds without full ejection on three trials, increasing his risk to aspirate residue remaining in the laryngeal vestibule after the swallow. He demonstrated aspiration of one cup sip of thin liquids, which did not fully eject despite cough response. SEE PAS scoring above for full details regarding laryngeal penetration and aspiration occurring during the study. - Recommendations Diet: Mechanical Soft Textures - Minced and Moist Textures (IDDSI Level 5), [place]-thick Liquids Compensatory Strategies: Small Bites, Small Sips, Slow Rate, Multiple Swallows, Sitting upright, Remain sitting upright for 30 minutes after PO intake Supervision: 1:1 Close Supervision Recommend Repeat Modified Barium Swallow: Yes - Would recommend repeat MBS study 4-6 weeks after implementation of oropharyngeal exercise program to consider the patient for diet advancement. Need for Skilled Speech Therapy Services: Yes Comment: Will recommend the patient for skilled dysphagia therapy to address moderate deficits in oropharyngeal swallow function. Would consider the patient for oropharyngeal strengthening to improve lingual coordination, laryngeal elevation, hyoid excursion, and duration of UES opening. The patient would benefit from thorough education regarding diet recommendations and recommended compensatory strategies. Would strongly consider the patient for implementation of [place] Free Water Protocol (FFWP) to encourage hydration and promote increased opportunities for swallowing throughout the patient?s day. Recommended Referrals: Dental Evaluation - Poor mastication abilities observed with current edentulous status. Education Completed: 1. Described result of evaluation., 7. Pt requires further education on strategies & risks. - Status Active ST Patient: Active - Contact Information [facility] Speech Therapy:: Mitali Patel M.A. [facility] Speech-Language Pathologist [facility] [address] [place] [address] [email or web address] [phone] 07/28/21 16:02
[2021-07-28] MEDS: guaiFENesin 1,200 MG Tablet 1200 MG PO (21:37)
[2021-07-28] MEDS: Atorvastatin Calcium 80 MG Tablet PO (21:38)
[2021-07-28] MEDS: Acetaminophen 325 MG Tablet 650 MG PO (21:44)
[2021-07-28] MEDS: BENZOCAINE/MENTHOL 1 LOZENGE MUCOUS MEM (21:44)
[2021-07-28] MEDS: Amiodarone 200 MG Tablet PO (21:44)
[2021-07-29] VITALS (18 sets, daily range): BP systolic 108–148; BP diastolic 64–78; PULSE 85–106; RESP 14–24; TEMP 36.5–37.9; O2SAT 93–97
[2021-07-29] MEDS: BENZOCAINE/MENTHOL 1 LOZENGE MUCOUS MEM ×3 (05:11→20:52)
[2021-07-29] MEDS: Amiodarone 200 MG Tablet PO ×3 (05:11→20:52)
[2021-07-29] MEDS: Acetaminophen 325 MG Tablet 650 MG PO (05:12)
[2021-07-29 06:11] LABS: Absolute Lymphocyte Count 1.13 X10^3/uL (0.83-4.51); Absolute Neutrophil Count 9.2 X10^3/uL (2.0-7.7); Basophil# 0.01 X10^3/uL; Basophil% 0.1 % (0-1); Hematocrit 29.2 % (40-54); Hemoglobin 9.8 g/dL (13.0-16.5); Lymphocyte # 1.13 X10^3/ul (0.83-4.51); Lymphocyte % 9.5 % (19-41); Mean Corp Hgb Conc 33.6 g/dL (32-36); Mean Corpuscular Hgb 27.8 pg (27.0-32.0); Mean Platelet Vol. 9.9 fl (6.2-12.0); Monocyte# 1.49 X10^3/uL; Monocyte% 12.5 % (0-10); NRBC Flagged by Analyzer 0 % (0-5); Neutrophil # 9.16 X10^3/uL (2.7-7.7); Neutrophil % 77.1 % (47-70); Platelet Count 600 K/mm3 (150-450); RBC Distribution Width CV 14.9 % (11.6-14.6); RBC Distribution Width SD 45.3 fl (35.1-43.9); Red Blood Count 3.52 M/mm3 (4.6-6.2); White Blood Count 11.9 K/mm3 (4.4-11.0)
[2021-07-29 06:33] LABS: Anion Gap 8 (5-15); BUN 21 mg/dL (7-18); BUN/Creat Ratio 24.6 RATIO (10-20); Calcium,Total 9.1 mg/dL (8.5-10.1); Chloride 101 mmol/L (98-107); Creatinine, Serum 0.85 mg/dL (0.70-1.30); EST Glomerular Filtration Rate 94 mL/min (>60); Est Glom Filt Rate - Afr Amer 113 mL/min (>60); Estimated Creatinine Clearance 58.11 ml/min; Glucose 117 mg/dL (74-106); Magnesium 1.9 mg/dL (1.6-2.6); Potassium 3.8 mmol/L (3.5-5.1); Sodium Level 134 mmol/L (136-145)
[2021-07-29] MEDS: Ipratropium/Albuterol Sulfate 3 ML AMPUL.NEB INHALATION ×3 (07:21→19:20)
[2021-07-29] MEDS: Budesonide Respules 0.5 MG/2 ML AMPUL.NEB. INHALATION ×2 (07:21→19:20)
[2021-07-29] MEDS: Sodium Chloride 0.65% 1 SPRAY SPRAY.BTL 2 SPRAY NASAL (10:30)
[2021-07-29] MEDS: Galantamine Hydrobromide 4 MG Tablet PO ×2 (10:33→18:11)
[2021-07-29] MEDS: Allopurinol 100 MG Tablet PO (10:35)
[2021-07-29] MEDS: Metoprolol(XL)Succ 25 MG Tablet PO (10:36)
[2021-07-29] MEDS: Citalopram 10 MG Tablet PO (10:42)
[2021-07-29] MEDS: SACUBITRIL/VALSARTAN 97-103 MG TABLET 1 EACH PO (10:44)
--- NOTE | 2021-07-29 12:20 | PN.HOSP_ITS ---
Subjective Subjective Patient seen and examined. He had no complaints today and had an uneventful night. Review of systems is otherwise negative. he has remained hemodynamically stable. He is still awaiting transfer to [facility]. Objective Data Objective Data Vital Signs: Vital Signs Temp Pulse Resp BP Pulse Ox 97.7 F L 90 18 108/72 93 07/29/21 08:14 07/29/21 10:36 07/29/21 08:14 07/29/21 10:36 07/29/21 08:14 Oxygen Flow Rate (L/min) 2 Oxygen Delivery Method Nasal Cannula Weight: 135 lb 5.821 oz Body Mass Index (BMI) 25.5 Intake & Output: Intake and Output for Last 24 Hours 07/27/21 07/28/21 07/29/21 23:59 23:59 23:59 Intake Total 0 / 0 60 / 60 Output Total 100 / 300 400 / 400 Balance -100 / -300 -340 / -340 Medical Nutrition Assessment Dietitian: Malnutrition Criteria Met Start: 07/28/21 11:53 Freq: Status: Active Protocol: Document 07/28/21 11:53 (Rec: 07/28/21 11:53 [id number]) Nutrition Malnutrition Evidence of Malnutrition Exists Yes Malnutrition (severe): Chronic Evidenced By Suboptimal Energy Intake ( Severe),Weight Loss (Severe) Clinical Problem Chronic Disease or Condition Related Malnutrition Etiology severe, chronic malnutrition r /t inadequate energy intake w/ ongoing hospitalizations, dysphagia Signs/Symptoms as evidenced by estimated PO intake meeting <75% of estimated energy needs x2 months, unintentional wt loss of 20.5#/13% <2 months Status Active Problem Recommendation Dietitian Recommendations/Changes recommend cardiac diet- texture/consistency per [employer]; recommend 120mL ensure enlive 4x/day w/ medpass when PO diet resumed given evidence of malnutrition Lab / Micro Data Result Diagrams: 07/29/21 05:48 07/29/21 05:48 Labs: Laboratory Results - last 24 hr 07/28/21 05:04: Diff Path Review Reviewed 07/29/21 05:48: WBC 11.9 H, RBC 3.52 L, Hgb 9.8 L, Hct 29.2 L, MCV 83.0, MCH 27.8, MCHC 33.6 D, RDW Std Deviation 45.3 H, RDW Coeff of Sujata 14.9 H, Plt Count 600 H, MPV 9.9, Immature Gran % (Auto) 0.800, Neut % (Auto) 77.1 H, Lymph % (Auto) 9.5 L, [place] % (Auto) 12.5 H, Eos % (Auto) 0.0, Baso % (Auto) 0.1, Absolute Neuts (auto) 9.2 H, Absolute Lymphs (auto) 1.13, Nucleated RBC % 0 07/29/21 05:48: Sodium 134 L, Potassium 3.8, Chloride 101, Carbon Dioxide 25.0, Anion Gap 8, BUN 21 H, Creatinine 0.85, Estim Creat Clear Calc 58.11, Est GFR (MDRD) Af Amer 113, Est GFR (MDRD) Non-Af 94, BUN/Creatinine Ratio 24.6 H, Glucose 117 H, Calcium 9.1, Magnesium 1.9 Radiography Diagnostic Testing: Radiology Impression Echocardiogram 07/27/21 22:40 Interpretation Summary Normal LV size. Left ventricular systolic function is normal. The estimated ejection fraction is 55 %. Pulmonary artery systolic pressure is 27 mmHg. Contrast injection was performed. The study was technically limited. Ordering Physician: Campos Kyle Referring Physician: Rodney Fontenot Performed By: Jaqueline Torres RDCS Rhythm Strip Rhythm Strip: Sinus Tach Rate: 122 Ectopy: None Physical Exam Const alert, oriented x3 and no apparent distress Exam Limitations: no limitations HEENT head/scalp atraumatic and moist oral mucous membranes Head and Scalp: normocephalic Eyes PERRL and EOMs intact bilaterally Neck no lymphadenopathy Resp normal respiratory effort, no retractions and no use of accessory muscles Cardio regular rate, regular rhythm, S1 normal heart sound, S2 normal heart sound and no murmurs GI normal to inspection, nondistended, normoactive bowel sounds and soft to palpation Extremity normal to inspection, full ROM and no clubbing, cyanosis or edema Skin Skin Narrative: resolving bruise over his forehead due to mechanical fall Neuro oriented x3, CN's II-XII intact bilaterally and moves all extremities Sensorium / Orientation: awake and alert Psych affect normal Assessment & Plan Assessment/Plan (1) Non-ST elevation (NSTEMI) myocardial infarction: PLAN: #Nonstemi * cardiology on board * initial troponin was 118, and trended upwards * had 2D echo which showed EF of 55%, with no regional wall motion abnormalities. PUlmonary artery systolic pressure is 27mmHg. * per cardiology, to transfer patient to [facility] where he was evaluated with a heart cath in March 2021 for Vtach. * awaiting transfer to [facility] per cardiology recommendation * #History of vtach * sotalol on hold * on eliquis. * cardiology on board. * 2D echo as above. * #History of ischemic cardiomyopathy * On Entresto * 2D echo done today. Read is pending * #Chronic hypoxic respiratory failure: * On 3 L of oxygen at home. This is due to COPD. Titrate oxygen to maintain saturation above 90%. #Paroxysmal A. fib: On Eliquis and metoprolol. Sotalol on hold #History of polyneuropathy: On Lyrica. #GERD: On PPI #Hyperlipidemia: On statin #Chronic depression: Citalopram and Wellbutrin DVT prophylaxis: on eliquis Disposition; accepted by Dr Machado (EP) at [facility]. Awaiting transfer Charges/Coding Visit Charges Inpatient E&M: 19406 Subs Hosp L2
[2021-07-29] MEDS: Clopidogrel Bisulfate 75 MG Tablet PO (12:34)
[2021-07-29] MEDS: Pantoprazole Sodium 20 MG Tablet PO (12:35)
[2021-07-29] MEDS: buPROPion (SR) 150 MG Tablet.SA PO ×2 (12:36→20:52)
[2021-07-29] MEDS: Albuterol 2.5 MG/3 ML VIAL.NEB. INHALATION ×2 (16:51→22:50)
--- NOTE | 2021-07-29 17:02 | NURSING ---
ed regarding chronic illness deferred while awaiting tx to tertiary center and focus on swallowing diff
--- NOTE | 2021-07-29 17:46 | PCM.PN.CARD ---
Subjective Subjective Patient seen and evaluated. Appears to be doing well. No cardiac arrhythmias. Objective Data Vital Signs: Vital Signs Temp Pulse Resp BP Pulse Ox 98.6 F 85 20 H 148/78 H 96 07/29/21 15:20 07/29/21 16:51 07/29/21 16:51 07/29/21 15:20 07/29/21 15:20 Oxygen Flow Rate (L/min) 2 Oxygen Delivery Method Nasal Cannula Weight: 135 lb 5.821 oz Body Mass Index (BMI) 25.5 Intake & Output: Intake and Output for Last 24 Hours 07/27/21 07/28/21 07/29/21 23:59 23:59 23:59 Intake Total 0 / 0 160 / 160 Output Total 100 / 300 500 / 500 Balance -100 / -300 -340 / -340 Lab / Micro Data Result Diagrams: 07/29/21 05:48 07/29/21 05:48 Labs: Laboratory Results - last 24 hr 07/29/21 05:48: WBC 11.9 H, RBC 3.52 L, Hgb 9.8 L, Hct 29.2 L, MCV 83.0, MCH 27.8, MCHC 33.6 D, RDW Std Deviation 45.3 H, RDW Coeff of Sujata 14.9 H, Plt Count 600 H, MPV 9.9, Immature Gran % (Auto) 0.800, Neut % (Auto) 77.1 H, Lymph % (Auto) 9.5 L, [place] % (Auto) 12.5 H, Eos % (Auto) 0.0, Baso % (Auto) 0.1, Absolute Neuts (auto) 9.2 H, Absolute Lymphs (auto) 1.13, Nucleated RBC % 0 07/29/21 05:48: Sodium 134 L, Potassium 3.8, Chloride 101, Carbon Dioxide 25.0, Anion Gap 8, BUN 21 H, Creatinine 0.85, Estim Creat Clear Calc 58.11, Est GFR (MDRD) Af Amer 113, Est GFR (MDRD) Non-Af 94, BUN/Creatinine Ratio 24.6 H, Glucose 117 H, Calcium 9.1, Magnesium 1.9 Rhythm Strip Rhythm Strip: Sinus Tach Rate: 122 Ectopy: None Cardiology Labs/Tests 07/29/21 05:48: WBC 11.9 H, RBC 3.52 L, Hgb 9.8 L, Hct 29.2 L, MCV 83.0, MCH 27.8, MCHC 33.6 D, Plt Count 600 H, MPV 9.9, Immature Gran % (Auto) 0.800, Neut % (Auto) 77.1 H, Lymph % (Auto) 9.5 L, [place] % (Auto) 12.5 H, Eos % (Auto) 0.0, Baso % (Auto) 0.1, Absolute Neuts (auto) 9.2 H, Nucleated RBC % 0 07/29/21 05:48: Sodium 134 L, Potassium 3.8, Chloride 101, Carbon Dioxide 25.0, Anion Gap 8, BUN 21 H, Creatinine 0.85, Est GFR (MDRD) Af Amer 113, Est GFR (MDRD) Non-Af 94, BUN/Creatinine Ratio 24.6 H, Glucose 117 H, Calcium 9.1, Magnesium 1.9 Rhythm: EKG: ECHO: Stress Test: Cardiac Cath: PCI: CT Surgery: Holter monitor: EPS: PPM: CXR: Chest CT Scan: Physical Exam Const alert, oriented x3 and no apparent distress General Appearance: cooperative HEENT hearing grossly normal bilaterally Head and Scalp: atraumatic Eyes EOMs intact bilaterally Neck General: normal visual inspection Chest inspection of chest normal and palpation of chest normal Resp normal respiratory effort Auscultation: clear to auscultation bilaterally Cardio regular rate, regular rhythm, S1 normal heart sound and S2 normal heart sound Jugular Venous Distention: JVD GI normal to inspection, nondistended, normoactive bowel sounds Extremity normal capillary refill and no pedal edema Peripheral Pulses: Yes pulses 2+ throughout and femoral pulses present Skin no rashes or lesions noted Neuro oriented x3 and CN's II-XII intact bilaterally Psych Appearance: grossly normal and appropriate Assessment & Plan Assessment/Plan (1) Ventricular tachycardia: PLAN: The patient appears to have an episode of wide-complex tachycardia. The above appears to be consistent with sustained ventricular tachycardia. He underwent synchronized DC cardioversion. I did discuss this with the EP service at [facility] and they would evaluate him for possible ablation. In the interim he has been started on amiodarone. He is pending a bed transfer to that facility. (2) Non-ST elevation (NSTEMI) myocardial infarction: PLAN: The patient does have abnormal cardiac enzymes.This may be a type II event secondary to his cardiac dysrhythmia and subsequent cardioversion event. He will continue to be monitored. He will continue his evaluation as noted above. (3) H/O coronary artery bypass surgery: PLAN: Based upon the patient's most recent cardiac catheterization both his bypass grafts were patent. This was within the last 6 months. I do not think that there is a reason for reassessment of this. In the interim he will continue medical management. (4) Paroxysmal atrial fibrillation: PLAN: He appears to be remaining in sinus rhythm at this time. I would recommend that we start him on amiodarone at this time and discontinue the Betapace. This will be pending his being seen by the EP service as well. His anticoagulation therapy is on hold pending the need for future invasive cardiovascular evaluation. (5) (HFpEF) heart failure with preserved ejection fraction: PLAN: He does not appear to have acute on chronic CHF at this time. He will continue medical management. (6) Hyperlipidemia: QUALIFIERS: Hyperlipidemia type: unspecified Qualified Code(s): E78.5 - Hyperlipidemia, unspecified PLAN: He should continue risk factor evaluation care as deemed appropriate. (7) Essential (primary) hypertension: PLAN: His blood pressure will be monitored with medicines adjusted accordingly.
[2021-07-29] MEDS: 0.9% Saline Lock 10 ML Syringe IV (18:11)
[2021-07-29] MEDS: Atorvastatin Calcium 80 MG Tablet PO (20:52)
[2021-07-30] VITALS (16 sets, daily range): BP systolic 81–149; BP diastolic 47–75; PULSE 71–148; RESP 16–26; TEMP 36.1–36.9; O2SAT 92–99
[2021-07-30] MEDS: Acetaminophen 325 MG Tablet 650 MG PO (02:57)
[2021-07-30 04:36] LABS: Absolute Lymphocyte Count 1.36 X10^3/uL (0.83-4.51); Absolute Neutrophil Count 10.9 X10^3/uL (2.0-7.7); Basophil# 0.01 X10^3/uL; Basophil% 0.1 % (0-1); Hematocrit 30.5 % (40-54); Hemoglobin 9.8 g/dL (13.0-16.5); Lymphocyte # 1.36 X10^3/ul (0.83-4.51); Lymphocyte % 9.7 % (19-41); Mean Corp Hgb Conc 32.1 g/dL (32-36); Mean Platelet Vol. 9.4 fl (6.2-12.0); Monocyte# 1.59 X10^3/uL; Monocyte% 11.3 % (0-10); NRBC Flagged by Analyzer 0 % (0-5); Neutrophil # 10.87 X10^3/uL (2.7-7.7); Neutrophil % 77.5 % (47-70); POSITIVE DIFFERENTIAL YES; Platelet Count 616 K/mm3 (150-450); RBC Distribution Width CV 15.1 % (11.6-14.6); RBC Distribution Width SD 46.1 fl (35.1-43.9); Red Blood Count 3.63 M/mm3 (4.6-6.2)
[2021-07-30 04:38] LABS: Differential Indicated SCAN CRITERIA MET
[2021-07-30 04:57] LABS: Platelet Estimate MKD INC (ADEQ)
[2021-07-30 05:05] LABS: Anion Gap 8 (5-15); BUN 21 mg/dL (7-18); BUN/Creat Ratio 24.1 RATIO (10-20); Calcium,Total 8.9 mg/dL (8.5-10.1); Chloride 101 mmol/L (98-107); Creatinine, Serum 0.87 mg/dL (0.70-1.30); EST Glomerular Filtration Rate 91 mL/min (>60); Est Glom Filt Rate - Afr Amer 110 mL/min (>60); Estimated Creatinine Clearance 56.78 ml/min; Glucose 115 mg/dL (74-106); Magnesium 1.8 mg/dL (1.6-2.6); Potassium 4.2 mmol/L (3.5-5.1); Sodium Level 134 mmol/L (136-145)
[2021-07-30] MEDS: Amiodarone 200 MG Tablet PO (05:11)
[2021-07-30] MEDS: Ipratropium/Albuterol Sulfate 3 ML AMPUL.NEB INHALATION (06:38)
[2021-07-30] MEDS: Budesonide Respules 0.5 MG/2 ML AMPUL.NEB. INHALATION (06:38)
[2021-07-30] MEDS: SACUBITRIL/VALSARTAN 97-103 MG TABLET 1 EACH PO (09:21)
[2021-07-30] MEDS: Metoprolol(XL)Succ 25 MG Tablet PO (09:22)
--- NOTE | 2021-07-30 11:25 | EKG12_ITS ---
Test Reason : VTACH Blood Pressure : / mmHG Vent. Rate : 195 BPM Atrial Rate : 070 BPM P-R Int : 000 ms QRS Dur : 172 ms QT Int : 286 ms P-R-T Axes : 264 -88 237 degrees QTc Int : 515 ms Ventricular tachycardia Left axis deviation Right bundle branch block Abnormal ECG When compared with ECG of 27-JUL-2021 23:12, Current undetermined rhythm precludes rhythm comparison, needs review Right bundle branch block is now Present Confirmed by ROB VENEGAS, KHANG ([id number]), editorial cartoonist MORGAN JOSEPH ([id number]) on 08/03/2021 11:20:09 AM Referred By: JUAN A Confirmed By:KHANG RIVAS MD
--- NOTE | 2021-07-30 12:11 | NURSING ---
1212 Dr. Owusu present pt room, prep for cardioversion Hr 164, R 21, BP 120/49, SpO2 97 1213 propofol 60mg IV push given 1214 200j cardioversion HR 100, R 24 BP 81/47 SpO2 91 1216 HR 79 R 20 BP 76/43 SpO2 90, increased to 4lnc 500cc NS bolus per Dr. Owusu order
[2021-07-30 12:22] LABS: Pathologist Review Reviewed
[2021-07-30] MEDS: 0.9% Saline Lock 10 ML Syringe IV (12:28)
[2021-07-30] MEDS: Propofol 200 MG/20 ML Vial 60 MG IV BOLUS (12:28)
[2021-07-30] MEDS: 0.9% Normal Saline 1,000 ML 100 ML IV (12:29)
--- NOTE | 2021-07-30 15:41 | DS.PCM_ITS ---
Providers Date of Admission: 07/28/21 Primary Care Physician: Dr. Rodney Fontenot MD Consultations 07/27/21 22:54 Consult: Onc/Wound/bulk sugar handler Routine Comment: Reason for Consult:: arm wounds Reason For Visit: CHEST PAIN DUE TO V TACH Diagnosis Discharge Diagnosis (1) Ventricular tachycardia: Status: Acute Code(s): I47.2 - Ventricular tachycardia (2) Non-ST elevation (NSTEMI) myocardial infarction: Status: Acute Code(s): I21.4 - Non-ST elevation (NSTEMI) myocardial infarction (3) H/O coronary artery bypass surgery: Status: Acute Code(s): Z95.1 - Presence of aortocoronary bypass graft (4) Paroxysmal atrial fibrillation: Status: Acute Code(s): I48.0 - Paroxysmal atrial fibrillation (5) (HFpEF) heart failure with preserved ejection fraction: Status: Acute Code(s): I50.30 - Unspecified diastolic (congestive) heart failure (6) Hyperlipidemia: Status: Chronic Code(s): E78.5 - Hyperlipidemia, unspecified Qualifiers: Hyperlipidemia type: unspecified Qualified Code(s): E78.5 - Hy perlipidemia, unspecified (7) Essential (primary) hypertension: Status: Chronic Code(s): I10 - Essential (primary) hypertension Medications at Discharge Home Medications allopurinol 100 mg PO DAILY 07/17/20 mtrjwwil-zqj-VN-lycopen-lutein 1 tab PO DAILY 07/17/20 atorvastatin 80 mg tablet 80 mg PO DAILY tab 09/17/20 bupropion HCl (smoking deter) 150 mg tablet,12 hr sustained-release(smoking deterrent) 150 mg PO BID tab 09/17/20 icosapent ethyl 1 gram capsule 2 g PO BID cap 09/17/20 pregabalin 75 mg capsule 75 mg PO BID PRN cap 09/17/20 albuterol sulfate 90 mcg/actuation aerosol inhaler 2 puff INHALATION Q4H PRN #8.5 g 12/22/20 citalopram 10 mg PO DAILY 06/16/21 clopidogrel 75 mg PO DAILY 06/16/21 omeprazole 20 mg PO DAILY 06/16/21 Eliquis 2.5 mg PO BID #0 tab 06/18/21 Entresto 1 tab PO DAILY #0 tab 06/18/21 Mucus Relief ER 1,200 mg PO BID #14 tab 06/18/21 baclofen 10 mg PO TID PRN #0 tab 06/18/21 metoprolol succinate 12.5 mg PO DAILY #0 tab 06/18/21 sennosides-docusate sodium [Stool Softener-Stimulant Laxat] 2 tab PO BID PRN PRN #0 tab 06/18/21 fluticasone fur. 200 mcg-umeclid 62.5 mcg-vilant 25 mcg inhalat.powder 1 inh INHALATION DAILY #60 ea 07/01/21 galantamine 16 mg 24 hr capsule,extended release 16 mg PO QAM #30 cap 07/01/21 galantamine 8 mg 24 hr capsule,extended release 8 mg PO QAM #30 cap 07/01/21 sotalol 80 mg tablet 80 mg PO BID #60 tab 07/19/21 acetaminophen [Tylenol] 650 mg PO Q6H PRN PRN #0 tab 07/24/21 nystatin [Nyamyc] 1 applic TOPICAL TID #0 g 07/24/21 Hospital Course Operations None Procedures 2-D Echocardiogram and Cardioversion Summary of Care Provided Minutes Spent on Discharge: 55 Hospital Course: Patient is a 70-year-old male who was admitted through the ED on 07/27/2021 with a complaint of chest pain and abnormal heart rhythm. Symptoms started around 330 in the day of admission. He was in his residential and said he tried to get the attention of the nurses for about 30 to 45 minutes but was unable to so he called 911. On arrival, EMS found patient in V. tach with heart rate of about 240. He was shocked and he converted to normal sinus rhythm. He had been in the residential for less than a week after he was adm itted on July 21 to the hospital for generalized weakness and falls. Patient had had a heart cath March 2021 at [facility] and also had an EP study which was noninducible for V. tach. Patient was on sotalol at 80 mg twice daily. He was admitted and managed for chest pain and arrhythmia due to nonsustained V. tach. Cardiology was consulted and cardiology recommended transfer to [facility] for further management. Patient was accepted at [facility]. Hospital course was complicated by dysphagia and speech therapy was consulted. He was noted to have moderate oropharyngeal phase dysphagia on modified barium swallow and was initially recommended to have mechanical soft textures but he was even noted to be as pirating with this and so recommendation was for him to be n.p.o. with question meds only. Hospital course was further complicated by patient going into V. tach again on the afternoon of 07/30/2021. He was given a bolus of amiodarone and started on amiodarone drip and transferred to the ICU emergently. He was cardioverted by cardiology. He obtained a bed at [facility] and was transferred to [facility] on 07/30/2021. Of note, he also had a 2D echo which showed normal left ventricular size function with EF of 55% and pulmonary artery systolic pressure of 27 mmHg. Patient was seen and examined prior to discharge. As mentioned, patient was transferred emergently to the ICU today after he went into V. tach. He was conscious throughout. He was started on amiodarone drip and transferred to ICU. Cardiology cardioverted him. He had no other complaints. Review of systems otherwise negative. Physical Exam Const alert, oriented x3 and no apparent distress General Appearance: cooperative, comfortable and well kempt Exam Limitations: no limitations HEENT normocephalic, head/scalp atraumatic, hearing grossly normal bilaterally and moist oral mucous membranes Eyes PERRL and EOMs intact bilaterally Neck no lymphadenopathy Resp normal respiratory effort, no retractions and no use of accessory muscles Cardio regular rate, regular rhythm, S1 normal heart sound, S2 normal heart sound and no murmurs GI normal to inspection, nondistended, normoactive bowel sounds and soft to palpation Extremity normal to inspection, full ROM and no clubbing, cyanosis or edema Skin no rashes or lesions noted Neuro oriented x3, CN's II-XII intact bilaterally and moves all extremities Sensorium / Orientation: awake and alert Psych affect normal Medical Records Data Medical Nutrition Assessment Dietitian: Malnutrition Criteria Met Start: 07/28/21 11:53 Freq: Status: Active Protocol: Document 07/28/21 11:53 (Rec: 07/28/21 11:53 [id number]) Nutrition Malnutrition Evidence of Malnutrition Exists Yes Malnutrition (severe): Chronic Evidenced By Suboptimal Energy Intake ( Severe),Weight Loss (Severe) Clinical Problem Chronic Disease or Condition Related Malnutrition Etiology severe, chronic malnutrition r /t inadequate energy intake w/ ongoing hospitalizations, dysphagia Signs/Symptoms as evidenced by estimated PO intake meeting <75% of estimated energy needs x2 months, unintentional wt loss of 20.5#/13% <2 months Status Active Problem Recommendation Dietitian Recommendations/Changes recommend cardiac diet- texture/consistency per HEAD FIELD HOCKEY COACH; recommend 120mL ensure enlive 4x/day w/ medpass when PO diet resumed given evidence of malnutrition Weight / BMI Weight Weight: 135 lb 5.821 oz Body Mass Index (BMI) 25.5 ABG / Lab / Microbiology Data Result Diagrams: 07/30/21 04:22 07/30/21 04:22 Laboratory: Laboratory Results - last 24 hr 07/30/21 04:22: WBC 14.0 H, RBC 3.63 L, Hgb 9.8 L, Hct 30.5 L, MCV 84.0, MCH 27.0, MCHC 32.1, RDW Std Deviation 46.1 H, RDW Coeff of Sujata 15.1 H, Plt Count 616 H, MPV 9.4, Immature Gran % (Auto) 1.400 H, Neut % (Auto) 77.5 H, Lymph % (Auto) 9.7 L, [place] % (Auto) 11.3 H, Eos % (Auto) 0.0, Baso % (Auto) 0.1, Absolute Neuts (auto) 10.9 H, Absolute Lymphs (auto) 1.36, Nucleated RBC % 0, Diff Path Review Reviewed, Platelet Estimate [employer] 07/30/21 04:22: Sodium 134 L, Potassium 4.2, Chloride 101, Carbon Dioxide 25.0, Anion Gap 8, BUN 21 H, Creatinine 0.87, Estim Creat Clear Calc 56.78, Est GFR (MDRD) Af Amer 110, Est GFR (MDRD) Non-Af 91, BUN/Creatinine Ratio 24.1 H, Glucose 115 H, Calcium 8.9, Magnesium 1.8 D/C Instructions Discharge Diet: Low fat / Low cholesterol Weight Bearing Status: Weight bearing as tolerated Call your doctor if you observe: Fever of 101 or Higher, Shortness of breath, Swelling in the ankles and Increased palpitations (irregular heartbeat) Meaningful Use Info Meaningful Use Diagnoses (Choose all that apply): AMI AMI/Post PCI/Angioplasty Aspirin given w/in 24hrs of arrival?: Yes ASA at discharge?: Yes Statins at discharge?: Yes Roland/ARB at discharge?: Yes Beta Diana at discharge?: Yes Done w/ Acute NV measure.: Yes Documented LVEF (%): 55 Discharge Plan Admission Admit Date/Time: 07/28/21 13:35 Primary Reason for Your Visit: chest pain, ventricular tachycardia Attending Provider: Marnie Nguyen Primary Care Provider: Rodney Fontenot Discharge Orders/Prescriptions Prescriptions: No Action albuterol sulfate 90 mcg/actuation HFA aerosol inhaler 2 puff inhalation Q4H PRN (Reason: shortness of breath or wheezing) Qty: 8.5 RF: 6 pregabalin 75 mg capsule 75 mg PO BID PRN (Reason: Pain) RF: 0 atorvastatin 80 mg tablet 80 mg PO DAILY RF: 0 icosapent ethyl 1 gram capsule 2 g PO BID RF: 0 Trelegy Ellipta 200-62.5-25 mcg blister with device 1 inh inhalation DAILY Qty: 60 RF: 11 galantamine 8 mg capsule,ext rel. pellets 24 hr 8 mg PO QAM Qty: 30 RF: 0 galantamine 16 mg capsule,ext rel. pellets 24 hr 16 mg PO QAM Qty: 30 RF: 3 allopurinol 100 MG tablet 100 mg PO DAILY RF: 0 pzixvxov-tfa-XF-lycopen-lutein 1 EACH tablet 1 tab PO DAILY RF: 0 bupropion HCl (smoking deter) 150 mg tablet extended release 12 hr 150 mg PO BID RF: 0 citalopram 10 mg tablet 10 mg PO DAILY RF: 0 clopidogrel 75 mg tablet 75 mg PO DAILY RF: 0 omeprazole 20 mg capsule,delayed release(DR/EC) 20 mg PO DAILY RF: 0 sennosides-docusate sodium [Stool Softener-Stimulant Laxat] 8.6-50 mg Tablet 2 tab PO BID PRN PRN (Reason: Constipation) Qty: 0 RF: 0 Mucus Relief ER 1,200 mg Tablet Extended Release 12hr 1,200 mg PO BID Qty: 14 RF: 0 metoprolol succinate 25 mg tablet extended release 24 hr 12.5 mg PO DAILY Qty: 0 RF: 0 Eliquis 5 mg tablet 2.5 mg PO BID Qty: 0 RF: 0 Entresto 97-103 mg tablet 1 tab PO DAILY Qty: 0 RF: 0 baclofen 10 mg tablet 10 mg PO TID PRN (Reason: Pain) Qty: 0 RF: 0 acetaminophen [Tylenol] 325 mg Tablet 650 mg PO Q6H PRN PRN (Reason: Pain Score 1-10) Qty: 0 RF: 0 nystatin [Nyamyc] 100,000 unit/gram Powder 1 applic topical TID Qty: 0 RF: 0 sotalol 80 mg tablet 80 mg PO BID Qty: 60 RF: 11 Referrals / Follow Up: Rodney Fontenot MD [Primary Care Provider] - Disposition Disposition (needs filled in before D/C Order can be placed): [facility] Charges/Coding Visit Charges Inpatient E&M: 78914 Disch Hosp
--- NOTE | 2021-07-30 15:43 | CHAPLAIN ---
Type of Pastoral Visit ___ Initial Visit _x__ Follow-up Visit ___ On-call Visit ___ General Patient Visit ___ Spiritual Assessment ___ Family Conference ___ Bereavement ___ Rapid Response ___ Code Blue ___ Other (describe below) Pastoral Care Referral From _x__ Patient ___ Family ___ Nurse ___ Physician ___ Gardening Manager ___ Paper Testing Supervisor ___ Other (describe below) Sacrament/Intervention ___ Active listening ___ Anointing ___ Episcopalian ___ Bereavement ___ Communion ___ Kylie exploration ___ ___ Life review _x__ Prayer ___ Reconciliation ___ Sacrament of Sick _x__ Supportive presence ___ Wedding ___ Other (describe below) Pastoral Comments patient is resting quietly in bed; pt welcoming of presence and prayer for spiritual support; pt is waiting for transfer and repeats that he is accepting of whatever must take place
--- NOTE | 2021-07-30 16:04 | OP.PCM_ITS ---
Problems Associated Problem List Diagnoses (1) Ventricular tachycardia: Operative Report Date of Procedure: 07/30/21 Urgent cardioversion 70-year-old man with a history of ventricular tachycardia who went into ventricular tachycardia this afternoon. The patient was given a bolus of int ravenous amiodarone. Patient became hypotensive and was urgently consented to be cardioverted. The patient was administered 60 mg of intravenous propofol and anterior-posterior pads were applied. 200 J of synchronized DC cardioversion energy were applied with prompt reversal to sinus rhythm. Patient tolerated the procedure well. He also required a bolus of 500 cc of normal saline. Patient continued to maintain sinus rhythm. Conclusion: Successful DC cardioversion from incipient unstable ventricular tachycardia
== END 2021-07-30 16:45 | disposition short-term general hospital (02) | DRG 280 ==
LOC: ED 22:32 → PCU 23:10 → ICU 07-30 12:38
PROVIDERS: Hospitalist; Admitting Provider Internal Medicine; Emergency Provider Emergency Medicine; PCP Family Medicine; Visit Provider Student in an Organized Health Care Education/Training Program
DX: I47.2 Ventricular tachycardia (principal); I21.A1 Myocardial infarction type 2; E43 Unspecified severe protein-calorie malnutrition; J96.11 Chronic respiratory failure with hypoxia; N17.9 Acute kidney failure, unspecified; I50.32 Chronic diastolic (congestive) heart failure; F02.80 Dementia in other diseases classified elsewhere, unspecified severity, without behavioral disturbance, psychotic disturbance, mood disturbance, and anxiety; G30.9 Alzheimer's disease, unspecified; I11.0 Hypertensive heart disease with heart failure; J44.9 Chronic obstructive pulmonary disease, unspecified; I48.0 Paroxysmal atrial fibrillation; I73.9 Peripheral vascular disease, unspecified; M06.9 Rheumatoid arthritis, unspecified; E78.5 Hyperlipidemia, unspecified; E78.00 Pure hypercholesterolemia, unspecified; I25.10 Atherosclerotic heart disease of native coronary artery without angina pectoris; I25.5 Ischemic cardiomyopathy; K21.9 Gastro-esophageal reflux disease without esophagitis; N40.0 Benign prostatic hyperplasia without lower urinary tract symptoms; I25.2 Old myocardial infarction; G62.9 Polyneuropathy, unspecified; Z95.1 Presence of aortocoronary bypass graft; Z87.891 Personal history of nicotine dependence; Z79.01 Long term (current) use of anticoagulants; Z79.02 Long term (current) use of antithrombotics/antiplatelets; Z79.82 Long term (current) use of aspirin; F32.A Depression, unspecified; R13.10 Dysphagia, unspecified; Z79.899 Other long term (current) drug therapy; Z86.73 Personal history of transient ischemic attack (TIA), and cerebral infarction without residual deficits; M81.0 Age-related osteoporosis without current pathological fracture; Z99.81 Dependence on supplemental oxygen; Z68.25 Body mass index [BMI] 25.0-25.9, adult
CPT/HCPCS: 36415; 71045; 74230; 80048; 83735; 84484; 85025; 85610; 92526; 92610; 92611; 93005; 93306; 94640; 97802; 99251; 99285; J7030; J7040; Q9957; A4216; C8929; G0463